=== PATIENT | female | born 1995 | race Caucasian/White ===

== ENCOUNTER 2019-05-12 20:39 | Emergency (ER) | payer BC ==
[~2019-05-12] VITALS: Ht 157.5 cm; Wt 115.7 kg
--- OUTSIDE RECORDS SUMMARY | ~2019-05-12 | XMS | Encounter Summary ---
Demographics + + + | Address | [address] | | | [place] [address] | + + + | Home Phone | | + + + | Preferred Language | Unknown | + + + | Marital Status | Single | + + + | Restorationist Affiliation | NRP | + + + | Race | White | + + + | Ethnic Group | Not or | + + + Author + + + | Author | [facility] | + + + | Organization | [facility] | + + + | Address | Unknown | + + + | Phone | Unavailable | + + + Support + + + + + | Name | Relationship | Address | Phone | + + + + + | Anderson Rose | ECON | [address] | | | [place] | | [place] [address] | | + + + + + | Gracie Turcios | ECON | [place] | | + + + + + Care Team Providers + +------+ + | Care Turn Sewer Name | Role | Phone | + +------+ + | Anisha Rivera | PCP | | + +------+ + Reason for Visit + + + | Reason | Comments | + + + | test | | + + + Encounter Details +--------+ + + + + | Date | Type | Department | Care Team | Description | +--------+ + + + + | 11/24/ | Telephone | [facility] [place] | Royal Lopez MD | test | | 2018 | | [facility] | [address] | | | | | [address] [place], [place] | | | | | [address] [place], [place] | [address] | | | | | [address] | [phone] | | | | | [phone] | | | +--------+ + + + + Social History + +-------+ +--------+------+ | Tobacco Use | Types | Packs/Day | Years | Date | | | | | Used | | + +-------+ +--------+------+ | Never Smoker | | | | | + +-------+ +--------+------+ + +---+---+---+ | Smokeless Tobacco: | | | | | Never Used | | | | + +---+---+---+ + + | Comments: Smoker at home. RS | + + + + +---------+ + | Alcohol Use | Drinks/Week | oz/Week | Comments | + + +---------+ + | No | 0 Standard drinks | 0.0 | | | | or equivalent | | | + + +---------+ + + + + | Sex Assigned at | Date Recorded | | | | + + + | Not on file | | + + + + + + + | Job Start Date | Occupation | Industry | + + + + | Not on file | Not on file | Not on file | + + + + + + + + | Travel History | Travel Start | Travel End | + + + + + + | No recent travel history available. | + + documented as of this encounter Plan of Treatment Not on filedocumented as of this encounter Results HCG BETA QUANT, PLASMA (11/24/2017 10:57 AM PDT) + + + + + + | Component | Value | Ref Range | Performed | Pathologist | | | | | At | Signature | + + + + + + | HCG BETA, | 10,316 (H) | <3 mIU/mL | [facility] | | | PLASMA | | | A MEDICAL | | | | | | CENTER | | + + + + + + + + | Specimen | + + | Blood - Blood | | (substance) | + + + + + | Narrative | Performed At | + + + | Quantitative HCG Reference Ranges Males and Non- | [facility] | | Females: 0.0-2.9 mIU/mL Females: Gestation Age HCG | [facility] | | Concentration (mIU/mL) 0.2-1 Weeks 5-50 1-2 | | | Weeks 50-500 2-3 Weeks 100-5,500 | | | 3-4 Weeks 500-10,000 4-5 Weeks | | | 1,000-50,000 5-6 Weeks 10,000-100,000 6-8 Weeks | | | 15,000-200,000 8-12 Weeks 10,000-100,000 The | | | use of this assay to monitor or to diagnose patients with cancer or | | | any condition unrelated to has not been cleared or approved | | | by the FDA or the missing persons investigator of the assay. | | + + + + + + + + | Performing | Address | City/State/Zipcode | Phone Number | | Organization | | | | + + + + + | [facility] | And | [place] [address] | [phone] | | [facility] | Streets | | | + + + + + documented in this encounter Visit Diagnoses + + | Diagnosis | + + | Unconfirmed - Primary examination or test, unconfirmed | + + documented in this encounter"
--- OUTSIDE RECORDS SUMMARY | ~2019-05-12 | XMS | Encounter Summary ---
Demographics + + + | Address | [address] | | | [place] [address] | + + + | Home Phone | | + + + | Preferred Language | Unknown | + + + | Marital Status | Single | + + + | Sikhism Affiliation | NRP | + + + | Race | White | + + + | Ethnic Group | Not or | + + + Author + + + | Author | [facility] | + + + | Organization | [facility] | + + + | Address | Unknown | + + + | Phone | Unavailable | + + + Support + + + + + | Name | Relationship | Address | Phone | + + + + + | Anderson Rose | ECON | [address] | | | [place] | | [place] [address] | | + + + + + | Gracie Turcios | ECON | [place] | | + + + + + Care Team Providers + +------+ + | Care Stone Layer Name | Role | Phone | + +------+ + | Anisha Rivera | PCP | | + +------+ + Reason for Visit +--------+ + | Reason | Comments | +--------+ + | Other | FMLA | +--------+ + Encounter Details +--------+ + + + + | Date | Type | Department | Care Team | Description | +--------+ + + + + | 07/13/ | Telephone | [facility] [place] | Natasha Jones, | Other ([facility]) | | 2019 | | [facility] [address] | MD [address] | | | | | [address] [place], [place] | | | | | [address] [place], [place] | [address] | | | | | [address] | [phone] | | | | | [phone] | | | +--------+ + + + [...] | | | + +---+---+---+ + + +---------+ + | Alcohol Use [...] Not on filedocumented as of this encounter Visit Diagnoses Not on filedocumented in this encounter"
--- OUTSIDE RECORDS SUMMARY | ~2019-05-12 | XMS | Encounter Summary ---
Demographics + + + | Address | [address] | | | [place] [address] | + + + | Home Phone | | + + + | Preferred Language | Unknown | + + + | Marital Status | Single | + + + | Jainism Affiliation | NRP | + + + | Race | White | + + + | Ethnic Group | Not or | + + + Author + + + | Author | [facility] | + + + | Organization | [facility] | + + + | Address | Unknown | + + + | Phone | Unavailable | + + + Support + + + + + | Name | Relationship | Address | Phone | + + + + + | Anderson Rose | ECON | [address] | | | [place] | | [place] [address] | | + + + + + | Gracie Turcios | ECON | [place] | | + + + + + Care Team Providers + +------+ + | Care Aging Room Operator Name | Role | Phone | + +------+ + | Anisha Rivera | PCP | | + +------+ + Encounter Details +--------+ + + + + | Date | Type | Department | Care Team | Description | +--------+ + + + + | 09/28/ | Orders Only | [place] | Natasha Jones, | History of | | 2018 | | [facility] [address] | MD [address] | gestational diabetes | | | | [address] [place], [place] | | | | | [address] [place], [place] | [address] | | | | | [address] | [phone] | | | | | [phone] | | | +--------+ + + + [...] Not on filedocumented as of this encounter Procedures + +--------+ + + + | Procedure Name | Priori | Date/Time | Associated Diagnosis | Comments | | | ty | | | | + +--------+ + + + | GLUCOSE, 2HR-75 | Routin | 09/28/2018 | History of | Results for this | | | e | 4:54 PM | gestational diabetes | procedure are in the | | | | PDT | | results section. | + +--------+ + + + | GLUCOSE, 2HR-75 | Routin | 09/28/2018 | History of | Results for this | | FASTING | e | 2:14 PM | gestational diabetes | procedure are in the | | | | PDT | | results section. | + +--------+ + + + | GLUCOSE TOLERANCE, 2 | Routin | 09/28/2018 | History of | Results for this | | HR | e | 2:14 PM | gestational diabetes | procedure are in the | | | | PDT | | results section. | + +--------+ + + + documented in this encounter Results GLUCOSE, 2HR-75 (09/28/2018 4:54 PM PDT) + +---------+ + + + | Component | Value | Ref Range | Performed | Pathologist | | | | | At | Signature | + +---------+ + + + | 2 HR GTT | 168 (H) | 70 - 140 mg/dL | [facility] | | | NON-GEST- 2 | | | A MEDICAL | | | HR GLU | | | CENTER | | + +---------+ + + + + + | Specimen | + + | Blood - Blood | | (substance) | + + + + + | Narrative | Performed At | + + + | The recommended OGTT is a 75 gm glucose load with a single 2-hour | [facility] | | post load glucose level. Fasting glucose levels between 110-126 | [facility] | | mg/dl and OGTT 2-hour results between 140-200 mg/dl define impaired | | | fasting glucose and impaired glucose tolerance. Reference: ADA | | | Recommendations 2001 | | + + + + + + + + | Performing | Address | City/State/Zipcode | Phone Number | | Organization | | | | + + + + + | [facility] | [address] | [place] [address] | [phone] | | MEDICAL CENTER | Streets | | | + + + + + GLUCOSE, 2HR-75 FASTING (09/28/2018 2:14 PM PDT) + +-------+ + + + | Component | Value | Ref Range | Performed | Pathologist | | | | | At | Signature | + +-------+ + + + | 2 HR GTT | 93 | 70 - 105 mg/dL | [facility] | | | NON-GEST- | | | A MEDICAL | | | FASTING | | | CENTER | | + +-------+ + + + + + | Specimen | + + | Blood - Blood | | (substance) | + + + + + + + | Performing | Address | City/State/Zipcode | Phone Number | | Organization | | | | + + + + + | [facility] | [address] | [place] [address] | [phone] | | MEDICAL [facility]ENTER | Streets | | | + + + + + documented in this encounter Visit Diagnoses + + | Diagnosis | + + | History of gestational diabetes Personal history of gestational diabetes | + + documented in this encounter"
--- OUTSIDE RECORDS SUMMARY | ~2019-05-12 | XMS | Encounter Summary ---
Demographics + + + | Address | [address] | | | [place] [address] | + + + | Home Phone | | + + + | Preferred Language | Unknown | + + + | Marital Status | Single | + + + | Mosque Affiliation | NRP | + + + | Race | White | + + + | Ethnic Group | Not or | + + + Author + + + | Author | [facility] | + + + | Organization | [facility] | + + + | Address | Unknown | + + + | Phone | Unavailable | + + + Support + + + + + | Name | Relationship | Address | Phone | + + + + + | Anderson Rose | ECON | [address] | | | [place] | | [place] [address] | | + + + + + | Gracie Turcios | ECON | [place] | | + + + + + Care Team Providers + +------+ + | Care Community Relations Specialist Name | Role | Phone | + +------+ + | Anisha Rivera | PCP | | + +------+ + Reason for Visit + + + | Reason | Comments | + + + | care | | + + + CC to [facility] (Routine) +--------+--------+ + + + + | Status | Reason | Specialty | Diagnoses / | Referred By | Referred To | | | | | Procedures | Contact | Contact | +--------+--------+ + + + + | Closed | | | Diagnoses | [place], | Pnc | | | | | Abnormal | [facility]julio cesar Loza, | Perinatology | | | | | | [facility] [address] | [address] | | | | | ultrasound | | [address] | | | | | Procedures | [address] | [address] | | | | | CONSULT TO | [place] | Physician's | | | | | PERINATOLOGY | [address] | [place] | | | | | [place] NEW | Phone: | [place], [place] | | | | | PATIENT | [phone] | [address] | | | | | L[place] | Fax: | Phone: | | | | | EST PATIENT | [phone] | [phone] | | | | | LEVEL V | | Fax: | | | | | | | [phone] | +--------+--------+ + + + + Encounter Details +--------+ + + + + | Date | Type | Department | Care Team | Description | +--------+ + + + + | 03/16/ | | Center | Zully Lira, | care | | 2018 | Initial | at [facility] [address] | MD [address] | | | | | [address] | [address] | | | | | Physician's Saji | [place], [place] | | | | | [place], [place] | [address] | | | | | [address] | [phone] | | | | | [phone] | | | +--------+ + + + [...] + + documented as of this encounter Last Filed Vital Signs + + + + + | Vital Sign | Reading | Time Taken | Comments | + + + + + | Blood Pressure | 118/67 | 03/16/2018 3:13 PM | | | | | PDT | | + + + + + | Pulse | 85 | 03/16/2018 3:13 PM | | | | | PDT | | + + + + + | Temperature | - | - | | + + + + + | Respiratory Rate | - | - | | + + + + + | Oxygen Saturation | 98% | 03/16/2018 3:13 PM | | | | | PDT | | + + + + + | Inhaled Oxygen | - | - | | | Concentration | | | | + + + + + | Weight | 115.1 kg (253 lb 12 | 03/16/2018 3:13 PM | | | | oz) | PDT | | + + + + + | Height | 157.5 cm (5' 2.01") | 03/16/2018 3:13 PM | | | | | PDT | | + + + + + | Body Mass Index | 46.4 | 03/16/2018 3:13 PM | | | | | PDT | | + + + + + documented in this encounter Progress Notes Zully Lira MD - 03/16/2018 3:00 PM PDTFormatting of this note might be different fr om the original. MFM CLINIC Consultation Visit DATE: 03/16/2018 REFERRING PROVIDER: Reynaldo AYALA PRIMARY OB PROVIDER: Reynaldo AYALA ID/CC: Ms. Elizabet Turcios is a 22 y.o. at 21w5d (ADELINE July 22, 2018 b y LMP) who presents for MFM consultation. She was referred for ultrasound with MFM consultation for possible small chin. On ultrasoun d today, the face/profile view appeared normal with no concerns for small chin. A velamentou s cord insertion was seen (with no concern for vasa previa). Here with her grandmother, Larissa, today. HPI: Elizabet reports that her has been fine, other than persistent morning sickn ess. She is taking Reglan which is managing her nausea well. She reports that she was diagnosed with gestational diabetes a few months ago. Not currentl y on medication. Checking CBGs at home and reports values within range. Having a boy. Good movement. No vaginal bleeding of LOF. No questions or concerns today. PAST MEDICAL HISTORY: Past Medical History: Diagnosis Date Chronic back pain Eczema As a child, bilateral UE Seasonal allergies PAST SURGICAL HISTORY: Past Surgical History Procedure Laterality Date Tympanostomy as young child GYNECOLOGICAL HISTORY: Last pap smear 01/07/2018 normal cytology OBSTETRICAL HISTORY: G1 - SAB 12/2015, no complications G2 - current FAMILY HISTORY: Family hx non-contributory MEDICATIONS: Current Outpatient Prescriptions on File Prior to Visit Medication Sig Dispense Refill albuterol 90 mcg/actuation inhalation HFA aerosol inhaler Inhale 1-2 puffs by mouth yuriy ry four hours as needed. 1 Inhaler 0 aspirin chewable 81 mg oral tablet,chewable Chew and swallow 1 tablet once daily. 30 ta blet 3 beclomethasone (QVAR) 40 mcg/actuation inhalation aerosol Inhale 2 puffs two times shar y. 1 Inhaler 0 Blood Sugar Diagnostic (BLOOD GLUCOSE TEST) strip Test four times daily. Fasting and 1 hour after breakfast, lunch, and dinner 100 each 2 Blood-Glucose Meter misc Test blood sugar four times daily. Fasting and one hour after breakfast, lunch and dinner 1 each 0 Lancets misc Test blood sugar four times daily. Fasting and one hour after breakfast, l unch and dinner 100 each 2 metoclopramide HCl (REGLAN) 10 mg oral tablet Take 1 tablet by mouth every six hours as needed for nausea/vomiting. 30 tablet 1 vits62/FA/om3/dha/epa ( GUMMY ORAL) Take by mouth. No current facility-administered medications on file prior to visit. Does not use QVAR inhaler. Not taking vitamin and needs a new prescription. SOCIAL HISTORY: She denies tobacco, alcohol, and drug use. Works at the [employer]. Lives with her boyfriend. Feels safe at work and at home. ALLERGIES: Allergies Allergen Reactions Peanut Anaphylaxis Avoids all nuts Penicillin Anaphylaxis and Hives All brothers have had this reaction to penicillin so patient does not take this medicatio n Lactose Stomach Upset REVIEW OF SYSTEMS: Negative except per HPI PHYSICAL EXAM: Vitals: BP 118/67 | Pulse 85 | Ht 1.575 m (5' 2.01") | Wt 115.1 kg (253 lb 12 oz) | SpO2 98 % | LMP 10/15/2017 | BMI 46.4 kg/(m^2) Urine: neg x 4 Gen: comfortable Psych: alert and oriented x 3; mood/affect appear appropriate Neuro: grossly normal Lungs: unlabored breathing Rest of the exam deferred due to consultative encounter IMAGING: OB Ultrasound today, March 16, 2018: Cephalic, FHR 147 bpm, JUANI normal. Anterior placenta without placenta previa. There is a velamentous cord insertion in the upp er right uterus > 5 cm from the placental edge. Normal profile and mandible noted on today's exam (by 2D and 3D evaluation). LABS: Completed 3hGTT [id number] ASSESSMENT AND PLAN: 22 yo with: Velamentous cord insertion Gestational diabetes Routine care - Patient not taking vitamin due to need for refill. Plans to get refill from rout ine OB. Velamentous cord insertion Discussed that velamentous cord insertion poses an increased risk of stunted growth a nd abnormal heart rate tracing. - Recommend growth ultrasounds q 4-6 weeks starting at 26-28 weeks (to be performed in the [facility]) - Recommend NST 1-2x/week starting at 32 weeks (to be performed in the [facility]) - Patient advised against laboring at home and to present to L&D soon after onset of labor Gestational diabetes Patient reports CBGs within range. Not on medication. - Gestational diabetes to be managed by routine OB in the [facility] No follow up necessary unless requested by routine OB. Start Time: 4:08 PM Exit Time: 4:20 PM I am Leola Goldsmith functioning as a scribe for MD Leola Sal PERINATOLOGY [address] [place] [address] I have reviewed, verified and edited the above scribed note of my visit with Elizabet Cheryl Turcios as recorded by Leola Goldsmith. The majority of time for this visit, greater than 50%, was spent in counseling regarding ve lamentous cord insertion and gestational diabetes affecting . The total physician dayanna carbone I spent in face to face discussion with Ms. Elizabet uTrcios was 12 minutes. Zully Guo MD, MSCE Clinical Trial Associate Department of Obstetrics and Gynecology Division of Maternal Medicine [facility] Display Progress Note in MyChart: Yes documented in this e ncounter Plan of Treatment Not on filedocumented as of this encounter Procedures + +--------+ + + + | Procedure Name | Priori | Date/Time | Associated Diagnosis | Comments | | | ty | | | | + +--------+ + + + | UA 4 DIP N/C, POC | Routin | 03/16/2018 | High-risk | Results for this | | | e | 3:09 PM | in second | procedure are in the | | | | PDT | trimester | results section. | + +--------+ + + + documented in this encounter Results UA 4 DIP N/C, POC (03/16/2018 3:09 PM PDT) + + + + + + | Component | Value | Ref Range | Performed | Pathologist | | | | | At | Signature | + + + + + + | APPEARANCE | Clear | | [facility] - | | | (UA DIP), | | | [facility] | | | POC | | | [place], POINT | | | | | | OF CARE | | | | | | TESTS | | + + + + + + | COLOR (UA | Yellow | | [facility] - | | | DIP), POC | | | [facility] | | | | | | [place], POINT | | | | | | OF CARE | | | | | | TESTS | | + + + + + + | GLUCOSE (UA | Negative | Negative - | [facility] - | | | DIP), POC | | Trace mg/dL | [facility] | | | | | | [place], POINT | | | | | | OF CARE | | | | | | TESTS | | + + + + + + | PROTEIN (UA | Negative | Neg - Trace | [facility] - | | | DIP), POC | | mg/dL | [facility] | | | | | | [place], POINT | | | | | | OF CARE | | | | | | TESTS | | + + + + + + | LEUKOCYTES | Negative | Negative | [facility] - | | | (UA DIP), | | | [facility] | | | POC | | | [place], POINT | | | | | | OF CARE | | | | | | TESTS | | + + + + + + | NITRITES | Negative | Negative | [facility] - | | | (UA DIP), | | | [facility] | | | POC | | | [place], POINT | | | | | | OF CARE | | | | | | TESTS | | + + + + + + + + | Specimen | + + | Urine - Urine | | (substance) | + + + + + + + | Performing | Address | City/State/Zipcode | Phone Number | | Organization | | | | + + + + + | [facility] | [address] | [place], [place] | | | [place] [facility] | [address] | [address] | | | TESTS | | | | + + + + + documented in this encounter Visit Diagnoses + + | Diagnosis | + + | Diet controlled gestational diabetes mellitus (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 trimester - Primary | + + | High-risk in second trimester | + + | Velamentous insertion of umbilical cord in third trimester Other umbilical cord | | complications during labor and delivery, unspecified as to episode of care | + + documented in this encounter
--- OUTSIDE RECORDS SUMMARY | ~2019-05-12 | XMS | Encounter Summary ---
Demographics + + + | Address | [address] | | | [place] [address] | + + + | Home Phone [...] Author + + + | Author | [facility] | + + + | Organization | [facility] | + + + | Address | Unknown | + + + | Phone | Unavailable | + + + Support + + + + + | Name | Relationship | Address | Phone | + + + + + | Anderson Rose | ECON | [address] | | | [place] | | [place] [address] | | + + + + + | Gracie Turcios | ECON | [place] | | + + + + + Care Team Providers + +------+ + | Care Railroad Car Cleaning Supervisor Name | Role | Phone | + +------+ + | Anisha Rivera | PCP | | + +------+ + Reason for Visit +---------+ + | Reason | Comments | +---------+ + | Blister | Hands | +---------+ + Encounter Details +--------+ + + + + | Date | Type | Department | Care Team | Description | +--------+ + + + + | 03/27/ | Telephone | [facility] | Anisha Rivera, | Blister (Hands) | | 2017 | | Medicine [address] | [facility] [address] | | | | | [address] [place], | [place], [place] | | | | | [place] [address] | [address] | | | | | [phone] | [phone] | | | | | | | | +--------+ + + + [...]
--- OUTSIDE RECORDS SUMMARY | ~2019-05-12 | XMS | Encounter Summary ---
Demographics + + + | Address | [address] | | | [place] [address] | + + + | Home Phone | | + + + | Preferred Language | Unknown | + + + | Marital Status | Single | + + + | Uatsdin Affiliation | NRP | + + + | Race | White | + + + | Ethnic Group | Not or | + + + Author + + + | Author | [facility] | + + + | Organization | [facility] | + + + | Address | Unknown | + + + | Phone | Unavailable | + + + Support + + + + + | Name | Relationship | Address | Phone | + + + + + | Anderson Rose | ECON | [address] | | | [place] | | [place] [address] | | + + + + + | Gracie Turcios | ECON | [place] | | + + + + + Care Team Providers + +------+ + | Care Stunner And Shackler Name | Role | Phone | + +------+ + | Anisha Rivera | PCP | | + +------+ + Reason for Visit + + + | Reason | Comments | + + + | | BS review | + + + Encounter Details +--------+ + + + + | Date | Type | Department | Care Team | Description | +--------+ + + + + | 04/30/ | | [facility] | Pentopoulos, | (BS | | 2018 | | [facility] [address] | MD Leonela [address] | review) | | | | [address] | | | | [address] [place], [place] | [place] | | | | | [address] | [address] | | | | | [phone] | [phone] | | | | | | | [...] + + + | Blood Pressure | 116/76 | 04/30/2018 7:40 AM | | | | | PST | | + + + + + | Pulse | - | - | | + + + + + | Temperature | - | - | | + + + + + | Respiratory Rate | - | - | | + + + + + | Oxygen Saturation | - | - | | + + + + + | Inhaled Oxygen | - | - | | | Concentration | | | | + + + + + | Weight | 117.5 kg (259 lb) | 04/30/2018 7:40 AM | | | | | PST | | + + + + + | Height | - | - | | + + + + + | Body Mass Index | 47.36 | 03/16/2018 3:13 PM | | | | | PDT | | + + + + + documented in this encounter Patient Instructions Patient Instructions Leonela Luke MD - 04/30/2018 7:45 AM PSTIt is important that you are testing your sugars 4 times a day so that we can properly manage your gestational d iabetes. You will want to test every morning when you wake up (fasting blood sugar) and one hour after each meal (postprandial). The goal for your fasting blood sugar is to be below 95 and the goal for postprandial values is less than 140. Please bring your meter with you to each appointment. Please schedule a follow-up OB visit in 2 weeks. This can be done at the same time as your ultrasound. Make certain you bring your meter. documented in this encounter Progress Notes Leonela Luke MD - 04/30/2018 7:45 AM PSTS: Elizabet is a at 28w1d who pr esents today for a routine OB visit and to review her sugars.. Today she has no complaints. She denies any contractions. She has good movement. O: General: NAD Abdomen: Soft, gravid. Psych: Appropriate mood and affect A: Elizabet is a at 28w1d who presents today for a routine OB visit. P: F/u in 2 weeks for a routine OB visit. Growth ultrasound in 2 weeks. Gestational diabetes -overall well controlled on 500 mg of metformin. Continue current dos e for now. Valorie naqvi MA - 04/30/2018 7:45 AM PSTTDAP today.Electronically signed by Valorie Berrios MA at 018 8:14 AM PSTdocumented in this encounter Plan of Treatment Not on filedocumented as of this encounter Visit Diagnoses + + | Diagnosis | + + | High-risk in second trimester - Primary | + + | Gestational diabetes mellitus (GDM) in second trimester controlled on oral | | hypoglycemic drug | + + documented in this encounter"
--- OUTSIDE RECORDS SUMMARY | ~2019-05-12 | XMS | Encounter Summary ---
Demographics + + + | Address | [address] | | | [place] [address] | + + + | Home Phone | | + + + | Preferred Language | Unknown | + + + | Marital Status | Single | + + + | Temple Affiliation | NRP | + + + | Race | White | + + + | Ethnic Group | Not or | + + + Author + + + | Author | [facility] | + + + | Organization | [facility] | + + + | Address | Unknown | + + + | Phone | Unavailable | + + + Support + + + + + | Name | Relationship | Address | Phone | + + + + + | Anderson Rose | ECON | [address] | | | [place] | | [place] [address] | | + + + + + | Gracie Turcios | ECON | [place] | | + + + + + Care Team Providers + +------+ + | Care Pre Fabricator Name | Role | Phone | + +------+ + | Anisha Rivera | PCP | | + +------+ + Reason for Visit + + + | Reason | Comments | + + + | | | + + + Encounter Details +--------+ + + + + | Date | Type | Department | Care Team | Description | +--------+ + + + + | 02/04/ | | [facility] | Kapil Rutherford, | | | 2018 | | [facility] [address] | CN[facility] [address] | | | | | [address] | [place] [address] | | | | | [address] [place], [place] | [place], [place] | | | | | [address] | [address] | | | | | [phone] | [phone] | | | | | | | [...] + + + | Blood Pressure | 110/70 | 02/04/2018 6:58 AM | | | | | PDT | [...] + + + + | Weight | 111 kg (244 lb 12.8 | 02/04/2018 6:58 AM | | | | oz) | PDT | | + + + + + | Height | - | - | | + + + + + | Body Mass Index | 44.76 | 01/05/2018 3:52 PM | | | | | PDT | | + + + + + documented in this encounter Patient Instructions Patient Instructions Mary Kruse MA - 02/04/2018 7:00 AM PDT Visit - Week 16 Congratulations, you are now in your second trimester. Usually this means you are feeling a little better. . . a little less fatigued and a little less nauseated. Please read chapter s 5 and 21 in your book. Genetic Screening and Ultrasound Some of you may have already completed some testing for genetic screening. Are yo u doing the Sequential Screening for genetic problems? If so, your second test should be do ne between 16 and 18 weeks gestation. Although, some women elect to skip this. Also, coming up is your mid- ultrasound. If you didn t schedule that at your vi sit today, call the clinic and get that done. We want to do this scan just AFTER the mid-po int of .just after 20 weeks. Doing this scan after 20 weeks means your baby is big enough for us to see more of the baby s anatomy. Although ultrasound cannot see ev erything and thus cannot picker and sorter load and unload all problems, it can provide us with reasonable assurance t hat your baby is growing normally. What is a ultrasound? ultrasound is a test that lets your doctor see an image of your baby. Your doctor golden rns information about your baby from this picture. You may find out, for example, if you are having a boy or a girl. But the main reason you have this test is to get information about your baby's health. (You may hear your baby called a fetus. This is a common medical term for a baby that's blaze wing in the mother's uterus.) What kind of information can you learn from this test? The findings of an ultrasound fall into two categories, normal and abnormal. Normal The fetus is the right size for its age. The placenta is the expected size and does not cover the cervix. There is enough amniotic fluid in the uterus. No defects can be seen. Abnormal The fetus is small or large for its age. The placenta covers the cervix. There is too much or too little amniotic fluid in the uterus. The fetus may have a defect. What does an abnormal result mean? Abnormal seems to imply that something is wrong with your baby. But what it means is that t he test has shown something the doctor wants to take a closer look at. And that's what happens next. Your doctor will talk to you about what further test or tests you may need. What are some possible results? Some of the things your doctor may see on an abnormal ultrasound include: Echogenic bowel. The bowel looks very bright on the screen. This could mean there is blo od in the bowel. Or it could mean that something is blocking the small bowel. Increased nuchal translucency. The ultrasound measures the thickness at the back of the baby's neck. An increase in thickness is sometimes an early sign of Down syndrome. Increased or decreased amniotic fluid. The doctor will look for a reason for the level o f amniotic fluid and will watch the closely as it progresses. Large ventricles. Ventricles in the brain look larger than they should. Your doctor may take a closer look at the brain. Renal pyelectasis/hydronephrosis. The ultrasound measures an area of the baby's renal pe lvis. If the area is larger than expected, there is a chance of urinary tract or kidney prob lems. Short long bones. The ultrasound measures certain arm and leg bones. A long bone (humeru s or femur) that is shorter than average could be a sign of Down syndrome. What do you do now? Take a deep breath, and let it out. Keep in mind that an abnormal finding on an ultrasound, after it's coupled with more information, may: director of outside sales to be nothing. director of outside sales to be something mild that won't affect the baby. director of outside sales to be something more serious. But if this happens, early diagnosis helps you an d your doctor plan treatment options sooner rather than later. Nutrition Today s Nutritional Pascale is this: Eat enough; but don t over-eat. Are you really eat ing for TWO? Well, yes and no. But one of you is pretty small. Early in , no inc rease in calories is really needed. In the last months of , a woman only needs an additional 300 calories (that s about 2 glasses of milk OR three slices of bread). Howev er, a focus just on calories misses a major point about nutrition ..(unless you re getti ng too many - which can lead to excess weight gain for both you and your baby). Think qual ity, not quantity. Certainly, if you think you re not getting enough calories, call us. Last visit s Nutritional Pascale was this: Keep it simple, eat the equivalent of three heal thy meals and three healthy snacks. What is healthy? Generally, healthy is more easily fou nd on the margins of the supermarket, not in the rows. Healthy is the produce department, d airy cases, and meat department. Healthy is fresh fruits, fresh vegetables, whole grains, u nsweetened dairy products, cheeses, eggs, meats and fish. Think twice if food comes in a brittaney x or package, especially if the food was processed or changed in some way (like turning corn into oil-fried corn chips). Read the ingredients did they add fat, sugar, or salt? H ealthy is also whole that means brown rice instead of white rice; whole grain breads an d cereals instead of white bread. How much weight should I gain? This is one of the toughest questions we address andreina ng . The common advice to gain 25-35 pounds is at most a broad guideline. E ach woman is special and unique, and many women gain more or less than this and have healthy pregnancies and babies. The more difficult answer is that weight gain is less important th an the quality of your nutrition. But it is likely that you will gain weight. So, using we ight gain as a guide in must take into account some individual variation. We use the Body Mass Index (BMI), a calculation based on your height and weight, to begin this conv ersation. Last 1 Encounter BMI Readings: Date BMI 02/04/2018 44.76 kg/m2 BMI Recommended Weight Gain (lbs) <18.5 28-40 18-24.9 25-35 25-29.9 15-25 30-34.9 11-20 >35 0-9 Where does the weight go? Baby 8 lbs Placenta 2-3 lbs Amniotic Fluid 2-3 lbs Breast Tissue 2-3 lbs Blood Supply 4 lbs Fat stores for delivery & breast feeding 5-9 lbs Uterus increase 2-5 lbs TOTAL 25-35 lbs Again ..keep it simple ..the equivalent of three, healthy meals and three healthy snack s. Fresh, whole foods. Fruits and vegetables. 71g of a high-quality protein every day (eg gs, dairy, meats, fish, chicken, beans/grains). and stay away from empty calories . What are empty calories ? .foods, th at is, junk foods, that provide calories but no other nutrition. The classic examples are c hips, sodas, cakes, cookies, ice cream. With that said, variety is the spice of life, and a good diet can include the occasional treat. Another important nutrient (although it s really not a nutrient, per se) is fiber. Gener ally speaking, most of us don t get enough of it. Fiber is the fibrous part of fruits and vegetables that human beings cannot digest. So, why would we need a food component that we don t digest? ? Fiber helps rid our bodies of the toxins and waste-products produced in the liver. ? Fiber is the bulk of our poop ? Fiber helps rid our bodies of high levels of cholesterol ? Fiber helps us moderate our blood sugars ? Fiber helps nourish the good bacteria that live in our gut Most modern diets do not provide our bodies with enough fiber. In fact, the modern grocery store can actually sabotage our efforts to eat a healthy diet. As consumers we are pushed toward too much fat, too much sugar, too much salt, too much processed food, and not nearly enough fiber. Thus, the modern diet sets us up for weight gain, diabetes, high blood pressu re, and .constipation. Human beings are omnivores ..we can eat a little of everyt maryellen. Our primitive ancestors ate a diet that included large amounts of fiber. Meats, dair y products, eggs, and fish were luxurious, infrequent additions to what was probably a diet of mostly plants (fruits and vegetables) and thus, a lot more fiber. For some women, compounds the potential for constipation. The muscles in the wal ls of the intestines (which move food along the digestive tract) relax during - slo wing down the movement of food through the body. As the passage of food slows down , the last few feet of bowel (the colon) have more time to pull water out of the fiber that makes it that far and instead of soft poop, the stool becomes hard. If there s not m ore fiber coming down the pike, the hard stool sits in the colon and gets harder and you ve got a problem. Here are suggestions for avoiding constipation: ? Get plenty of fiber ? Drink plenty of water (avoid a lot of fluids that are sweet) ? Get plenty of exercise Unfortunately, all intestines are not created equal. Some women s digestive systems are just slower than others. can compound problems with constipation. If you are one of those women, talk to us. We have more tricks in the bag for dealing with constipation, including: ? Prunes. All that you ve heard is true. Start with prunes. ? Bulk additives, like psyllium, a grain product that holds water ? Senna, a grain product that also helps stimulate the gut (a laxative) ? Docusate, a medicine that helps the stool retain moisture Numerous other laxative products (talk to us before you try any laxative products). Exercise Did we mention exercise? It s something we all need to do ..every day ..even pregnan t women. About 30 minutes of moderate exertion most days of the week. That could be a bris k walk, a workout program designed for women, or the moderate exercise that you v e always done. does change your body in some ways that may impact your exercise regimen: ? Sometimes, if you overdo it, you ll be more fatigued and recover more slowly ? The cartilage and ligaments that pad and hold your joints together soften during pregnanc y. Thus, you might be more susceptible to injury if you start an unfamiliar activity or pus h your body too hard ? Dehydration can make the uterus contract ..so, keep drinking those fluids during exerci se. Weeks 14 to 18 of Your : Care Instructions Your Care Instructions During this time, you may start to "show," so that you look to people around you. You may also notice some changes in your skin, such as itchy spots on your palms or acne on your face. Your baby is now able to pass urine, and your baby's first stool (meconium) is starting to collect in his or her intestines. Hair is also beginning to grow on your baby's head. At your next visit, between weeks 18 and 20, your doctor may do an ultrasound test. The janny t allows your doctor to check for certain problems. Your doctor can also tell the sex of you r baby. This is a good time to think about whether you want to know whether your baby is a b oy or a girl. Talk to your doctor about getting a flu shot to help keep you healthy during your . As your moves along, it is common to worry or feel anxious. Your body is changing a lot. And you are thinking about giving , the health of your baby, and becoming a par ent. You can learn to cope with any anxiety and stress you feel. Follow-up care is a emerson part of your treatment and safety. Be sure to make and go to all ap pointments, and call your doctor if you are having problems. It's also a good idea to know y our test results and keep a list of the medicines you take. How can you care for yourself at home? Reduce stress Ask for help with cooking and housekeeping. Figure out who or what causes your stress. Avoid these people or situations as much a s possible. Relax every day. Taking 10- to 15-minute breaks can make a big difference. Take a wal k, listen to music, or take a warm bath. Learn relaxation techniques at or yoga class. Or buy a relaxation tape. List your fears about having a baby and becoming a parent. Share the list with nestor pedraza you trust. Decide which worries are really small, and try to let them go. Exercise If you did not exercise much before , start slowly. Walking is best. Pace yo urself, and do a little more every day. Brisk walking, easy jogging, low-impact aerobics, water aerobics, and yoga are good c hoices. Some sports, such as scuba diving, horseback riding, downhill skiing, gymnastics, an d water skiing, are not a good idea. Try to do at least 2 hours a week of moderate exercise, such as a fast walk. One wa y to do this is to be active 30 minutes a day, at least 5 days a week. It's fine to be activ e in blocks of 10 minutes or more throughout your day and week. Wear loose clothing. And wear shoes and a bra that provide good support. Warm up and cool down to start and finish your exercise. If you want to use weights, be sure to use light weights. They reduce stress on your joints. Stay at the best weight for you Experts recommend that you gain about 1 pound a month during the first 3 months of yo ur . Experts recommend that you gain about 1 pound a week during your last 6 months of pre gnancy, for a total weight gain of 25 to 35 pounds. If you are underweight, you will need to gain more weight (about 28 to 40 pounds). If you are overweight, you may not need to gain as much weight (about 15 to 25 pounds ). If you are gaining weight too fast, use common sense. Exercise every day, and limit s weets, fast foods, and fats. Choose lean meats, fruits, and vegetables. If you are having twins or more, your doctor may refer you to a dietitian. Where can you learn more? To learn more about "Weeks 14 to 18 of Your : Care Instructions", log into your My Chart account at [email or web address]. You can enter I453 in the "Health Library" [place] box. Not on MyChart? Review the MyChart section of your After Visit Summary for directions on [facility] to sign up. Current as of: May 06, 2017 Content Version: 11.7 0558-4554 testhub. Care instructions adapted under license by [facility] [place]. If you have questions about a medical condition or this instr uction, always ask your healthcare professional. [employer]hub disclaims any frederic anty or liability for your use of this information. documented in this encounter Progress Notes Kapil Rutherford CNM - 02/04/2018 7:00 AM PDTS: @ 16 weeks who presents for routine ob visit. She was diagnosed with GDM at 13 weeks. She has attended diabetes education. She states she didn't bring her meter because she hasn't testing for over 1.5 weeks. She states she just got out of the habit of it. Blood sugars at RN visit and punch molder were in good ran ge. She states she has gone from eating fast food every other meal to eating much more healt hy. She states she plans to restart testing today. She asks for a work letter to limit her work days. She is working at least 6 days per week. 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 She does plan to complete 2nd SS. O: See flow sheet Abd: gravid, soft, not tender A/P GDM: Reviewed importance of blood sugar testing, following healthy diet and exercise in ord er to provide healthiest environment for baby. Reviewed risks associated with uncontrolled d iabetes to include demise. Asked that she resume QID testing. Will plan her to meet wi th RN in 1-2 weeks to review sugars and then again in 3-4 wks at [facility]. Work: Letter written to decrease hours to 40 per week F/U in 3-4 weeks for anatomy scan and ROB Mary Tenorio MA - 02/04/2018 7:00 AM PDTPt has no questions or concerns. Brennan Larkin MA - 02/04/2018 7:00 AM PDT2nd genetic form given. documented in this encounter Plan of Treatment Not on filedocumented as of this encounter Visit Diagnoses + + | Diagnosis | + + | High-risk in second trimester - Primary | + + | Diet controlled gestational diabetes mellitus (GDM) in second trimester | + + documented in this encounter
--- OUTSIDE RECORDS SUMMARY | ~2019-05-12 | XMS | Encounter Summary ---
Demographics + + + | Address | [address] | | | [place] [address] | + + + | Home Phone | | + + + | Preferred Language | Unknown | + + + | Marital Status | Single | + + + | Amish Affiliation | NRP | + + + | Race | White | + + + | Ethnic Group | Not or | + + + Author + + + | Author | [facility] | + + + | Organization | [facility] | + + + | Address | Unknown | + + + | Phone | Unavailable | + + + Support + + + + + | Name | Relationship | Address | Phone | + + + + + | Anderson Rose | ECON | [address] | | | [place] | | [place] [address] | | + + + + + | Gracie Turcios | ECON | [place] | | + + + + + Care Team Providers + +------+ + | Care Oil Truck Driver Name | Role | Phone | + [...] | +--------+ + + + + | 07/02/ | | [facility] | Royal Lopez MD | | | 2019 | | [facility] [address] | [address] [place] | | | | | [address] [place], [place] | | | | | [address] [place], [place] | [address] | | | | | [address] | [phone] | | | | | [phone] | | | +--------+ + + + [...] + + documented as of this encounter Progress Notes Royal Lopez MD - 07/02/2018 11:45 AM PSTS: Patient was seen during NST today. Growth u ltrasound scheduled for today. Patient is feeling well. She reports increasing pain of contractions that are occurring ev belia 10 minutes or so. She rates them 7/10. She reports that none of them take her breath a way or limits her activities. She denies any leaking, bleeding. Patient wonders about induction scheduling as induction has been recommended at 39 weeks. O: See flow sheet Blood sugars reviewed, only 1 elevated blood sugar. NST reactive A/P: Elizabet Turcios is a 23 y.o. female at 37w1d with complica danyel by gestational diabetes on insulin, obesity, and Rh-negative - GDM: Continue current doses of NPH /12 - Induction recommended at 39 weeks, discussed plan for cervical exam next week and plannin g of induction on either 07/15 (evening) or 07/16. Discussed expectations with induction incl uding misoprostol, Pitocin, and time of induction for 1st labor. - growth ultrasound scheduled for today was normal. documented in this encounter Plan of Treatment Not on filedocumented as of this encounter Visit Diagnoses + + | Diagnosis | + + | High-risk in third trimester - Primary | + + documented in this encounter"
--- OUTSIDE RECORDS SUMMARY | ~2019-05-12 | XMS | Encounter Summary ---
Demographics + + + | Address | [address] | | | [place] [address] | + + + | Home Phone | | + + + | Preferred Language | Unknown | + + + | Marital Status | Single | + + + | Alevism Affiliation | NRP | + + + | Race | White | + + + | Ethnic Group | Not or | + + + Author + + + | Author | [facility] | + + + | Organization | [facility] | + + + | Address | Unknown | + + + | Phone | Unavailable | + + + Support + + + + + | Name | Relationship | Address | Phone | + + + + + | Anderson Rose | ECON | [address] | | | [place] | | [place] [address] | | + + + + + | Gracie Turcios | ECON | [place] | | + + + + + Care Team Providers + +------+ + | Care Unit Control Worker Name | Role | Phone | + +------+ + | Anisha Rivera | PCP | | + +------+ + Reason for Visit + + + | Reason | Comments | + + + | monitoring | | + + + Encounter Details +--------+ + + + + | Date | Type | Department | Care Team | Description | +--------+ + + + + | 06/01/ | | [facility] | | monitoring | | 2018 | | [facility] [address] | | | | | | [address] [facility] | | | | | | [address] [place], [place] | | | | | | [address] | | | | | | [phone] | | | +--------+ + + + [...] + + + | Blood Pressure | 101/69 | 06/01/2018 9:16 AM | | | | | PST [...] + + + + | Weight | 119.7 kg (264 lb) | 06/01/2018 9:16 AM | | | | | PST | | + + + + + | Height | - | - | | + + + + + | Body Mass Index | 48.27 | 03/16/2018 3:13 PM | | | | | PDT | | + + + + + documented in this encounter Progress Notes Jordan Gonsalves RN - 06/01/2018 8:00 AM PSTNST: 23 y.o. at 32w5d weeks gesta tion. Indications for monitoring: GDM starting insulin, BMI 44 FHT: Baseline FHR 140, moderate variability, 15 x 15 accelerations, and no decelerations. TOCO: One contraction noted in 25 minutes, reported as noticeable but not painful by krista gray Strip reviewed by Wellington Jones MD. Next appointment 06/03 for JUAIN, 06/04 for NST. Glucose results reviewed by Dr. Jones. Pharmacy did not have pt insulin until this afternoo n. She declined returning with her supplies for insulin teaching. Showed pt sample pen and w ent over handouts. Pt to call if she has any questions or needs assistance. Pt states unders tanding. documented in this encounter Plan of Treatment Not on filedocumented as of this encounter Procedures + +--------+ + + + | Procedure Name | Priori | Date/Time | Associated Diagnosis | Comments | | | ty | | | | + +--------+ + + + | NST | Routin | 06/01/2018 | Gestational | Results for this | | | e | | diabetes mellitus | procedure are in the | | | | | (GDM) in second | results section. | | | | | trimester controlled | | | | | | on oral | | | | | | hypoglycemic drug | | | | | | High-risk | | | | | | in third trimester | | + +--------+ + + + documented in this encounter Results NST (06/01/2018) + + + + + + | Component | Value | Ref Range | Performed | Pathologist | | | | | At | Signature | + + + + + + | PHYSICIAN | REACTIVE | | | | | INTERP NST | | | | | + + + + + + documented in this encounter Visit Diagnoses + + | Diagnosis | + + | Gestational diabetes mellitus (GDM) in second trimester controlled on oral | | hypoglycemic drug | + + | High-risk in third trimester | + + documented in this encounter"
--- OUTSIDE RECORDS SUMMARY | ~2019-05-12 | XMS | Encounter Summary ---
Demographics + + + | Address | [address] | | | [place] [address] | + + + | Home Phone | | + + + | Preferred Language | Unknown | + + + | Marital Status | Single | + + + | Denominational Affiliation | NRP | + + + | Race | White | + + + | Ethnic Group | Not or | + + + Author + + + | Author | [facility] | + + + | Organization | [facility] | + + + | Address | Unknown | + + + | Phone | Unavailable | + + + Support + + + + + | Name | Relationship | Address | Phone | + + + + + | Anderson Rose | ECON | [address] | | | [place] | | [place] [address] | | + + + + + | Gracie Turcios | ECON | [place] | | + + + + + Care Team Providers + +------+ + | Care Community Program Assistant Name | Role | Phone | + [...] | +--------+ + + + + | 06/18/ | Hospital | M[facility] Services | Kapil Rutherford, | | | 2019 | Encounter | at [facility] | [facility] [address] | | | | | [address] | [address] | | | | | [place], [place] | [place], [place] | | | | | [address] | [address] | | | | | [phone] | [phone] | | | | | | | | | | | | Natasha Jones MD | | | | | | [address], | | | | | | [address] [place], [place] | | | | | | [address] | | | | | | [phone] | | | | | | | [...] + + + | Blood Pressure | 138/85 | 06/18/2018 4:21 PM | | | | | PST | | + + + + + | Pulse | 105 | 06/18/2018 4:15 PM | | | | | PST | | + + + + + | Temperature | 36.4 C (97.5 F) | 06/18/2018 4:15 PM | | | | | PST | | + + + + + | Respiratory Rate | 18 | 06/18/2018 4:15 PM | | | | | PST | | + + + + + | Oxygen Saturation | 97% | 06/18/2018 4:15 PM | | | | | PST | | + + + + + | Inhaled Oxygen | - | - | | | Concentration | | | | + + + + + | Weight | - | - | | + + + + + | Height | - | - | | + + + + + | Body Mass Index | - | - | | + + + + + documented in this encounter Discharge Instructions Instructions Alisia Armstrong RN - 06/18/2018Return to First Impressions or call your O B provider: If your bag of water breaks -- this may feel like a gush of fluid or intermittent or contin uous leaking from the vagina. For any vaginal bleeding - a small amount of bloody mucous-like show is normal in early lab or or after an exam. When contractions are regular, uncomfortable and 5 minutes or less apart for approximately one hour. Notify your OB provider of Decreased movement of your baby. You should feel about 10 movements in a 10 hour period. Persistent headache Blurred or spotted vision, double vision or problem focusing. Sudden increase in weight or swelling of hands and face. Elevated temperature above 100.5 degrees F, oral temperature. AttachmentsThe following attachments cannot be sent through Care Everywhere.Preeclampsia (E eligio)documented in this encounter Progress Notes Natasha Jones MD - 06/18/2018 5:00 PM PSTNST Interpretation: ID: Elizabet Turcios is a 23 y/o who presents for scheduled NST for A2GDM, obesity, velamentous cord insertion and diabetes. O: BP 138/85 | Pulse 105 | Temp (Src) 36.4 C (97.5 F) (Oral) | RR 18 | SpO2 97% | LMP 05/0 07/2017 NST - BL 125, moderate variability, +accels, no decels [place] - acontractile Impression: Reactive NST BP slightly higher than baseline, though still within normal range. Patient w/ no si/sx of preeclampsia. Patient scheduled for NST on Thursday 06/22. Preeclampsia precautions reviewed. Natasha Jones MD documented in this en counter Plan of Treatment Not on filedocumented as of this encounter Visit Diagnoses Not on filedocumented in this encounter"
--- OUTSIDE RECORDS SUMMARY | ~2019-05-12 | XMS | Encounter Summary ---
Demographics + + + | Address | [address] | | | [place] [address] | + + + | Home Phone | | + + + | Preferred Language | Unknown | + + + | Marital Status | Single | + + + | Moravian Affiliation | NRP | + + + [...] | | [place] | | [place] [address] | | + + + + + | Gracie Turcios | ECON | [place] | | + + + + + Care Team Providers + +------+ + | Care Qa Automation Architect Name | Role | Phone | + +------+ + | Anisha Rivera | PCP | | + +------+ + Reason for Visit + + + | Reason | Comments | + + + | | | + + + | monitoring | | + + + Encounter Details +--------+ + + + + | Date | Type | Department | Care Team | Description | +--------+ + + + + | 06/11/ | | [facility] | Natasha Jones, | ; | | 2018 | | [facility] [address], | monitoring | | | [address] [place], [place] | | | | | [address] [place], [place] | [address] | | | | | [address] | [phone] | | | | | [phone] | | | +--------+ + + + [...] + + + | Blood Pressure | 104/70 | 06/11/2018 3:12 PM | | | | | PST [...] + + + + | Weight | 120.8 kg (266 lb 6.4 | 06/11/2018 3:12 PM | | | | oz) | PST | | + + + + + | Height | - | - | | + + + + + | Body Mass Index | 48.71 | 03/16/2018 3:13 PM | | | | | PDT | | + + + + + documented in this encounter Patient Instructions Patient Instructions Dolly Lacy MA - 06/11/2018 3:15 PM PSTPrenatal Visit - Week 34 Please read chapter 18 in your book. Group B Strep (GBS) At your next visit we will be obtaining a culture for Group B Strep (GBS). Group B strepto coccus is a bacteria. About 30% of women carry GBS in the vagina and/or rectum. For most a dults and children GBS is not a harmful bacteria. However, if it gets into the blood of a n ewborn it can cause serious illness. We will use two small Qtips to collect a sample from your vagina and rectum. The culture p david takes just a few seconds and should not be uncomfortable. If the culture is positive for GBS we will want to give you antibiotics when you re in la bor to prevent your baby from infection. If you are allergic to Penicillin, let your doctor or housekeeper supervisor know. Did you get your Tdap shot? Here s another reminder about the Tdap vaccine. We want the people who will be around yo ur baby to be immunized against diphtheria and pertussis. Remind those people to get their Tdap shot! And while you re at it .if it s Flu Season, have everyone get a flu shot. Family Medical Leave Act (FMLA) / Disability Most employers are required to allow a 12 week leave for caring for a new baby without risk of losing your job or health insurance. This is commonly unpaid unless you have saved up v acation and sick time. Your company can require you to have been working there for 12 month s before you are eligible. Some folks also have short-term disability plans that can help pr ovide a partial income for part of their leave. Both of these plans require paperwork with a part for you to complete and a part for us to complete. Make sure you get these forms to us soon so there is enough time for our staff to complete your paperwork and get it turned it. We ask you to allow a 2 week turn-around violet e to get this done. Weeks 34 to 36 of Your : Care Instructions Your Care Instructions By now, your baby and your belly have grown quite large. It is almost time to give . A full-term can deliver between 37 and 42 weeks. Your baby's lungs are almost ready to breathe air. The bones in your baby's head are now firm enough to protect it, but soft e nough to move down through the canal. You may feel excited, happy, anxious, or scared. You may wonder how you will know if you ar e in labor or what to expect during labor. Try to be flexible in your expectations of the rt. Because each is different, there is no way to know exactly what childbirth will b e like for you. This care sheet will help you know what to expect and how to prepare. This m ay make your childbirth easier. If you haven't already had the Tdap shot during this , talk to your doctor about g etting it. It will help protect your against pertussis infection. In the 36th week, most women have a test for group B streptococcus (GBS). GBS is a common b acteria that can live in the vagina and rectum. It can make your baby sick after . If y ou test positive, you will get antibiotics during labor. The medicine will keep your baby fr om getting the bacteria. Follow-up care is a emerson part of your treatment and safety. Be sure to make and go to all ap pointments, and call your doctor if you are having problems. It's also a good idea to know y our test results and keep a list of the medicines you take. How can you care for yourself at home? Learn about pain relief choices Pain is different for every woman. Talk with your doctor about your feelings about pain. You can choose from several types of pain relief. These include medicine or breathing te chniques, as well as comfort measures. You can use more than one option. If you choose to have pain medicine during labor, talk to your doctor about your options . Some medicines lower anxiety and help with some of the pain. Others make your lower body n umb so that you won't feel pain. Be sure to tell your doctor about your pain medicine choice before you start labor or ve ry early in your labor. You may be able to change your mind as labor progresses. Rarely, a woman is put to sleep by medicine given through a mask or an IV. Labor and delivery The first stage of labor has three parts: early, active, and transition. Most women have early labor at home. You can stay busy or rest, eat light snacks, drink clear fluids, and start counting contractions. When talking during a contraction gets hard, you may be moving to active labor. During a ctive labor, you should head for the hospital if you are not there already. You are in active labor when contractions come every 3 to 4 minutes and last about 60 se conds. Your cervix is opening more rapidly. If your water breaks, contractions will come faster and stronger. During transition, your cervix is stretching, and contractions are coming more rapidly. You may want to push, but your cervix might not be ready. Your doctor will tell you when to push. The second stage starts when your cervix is completely opened and you are ready to push. Contractions are very strong to push the baby down the canal. You will feel the urge to push. You may feel like you need to have a bowel movement. You may be coached to push with contractions. These contractions will be very strong, bu t you will not have them as often. You can get a little rest between contractions. You may be emotional and irritable. You may not be aware of what is going on around you. One last push, and your baby is born. The third stage is when a few more contractions push out the placenta. This may take 30 minutes or less. The fourth stage is the welcome recovery. You may feel overwhelmed with emotions and exh austed but alert. This is a good time to start . Where can you learn more? To learn more about "Weeks 34 to 36 of Your : Care Instructions", log into your My Chart account at [email or web address]. You can enter B912 in the "Health Library" [facility] box. Not on [employer]? Review the MyChart section of your After Visit Summary for directions on [place] [facility] to sign up. Current as of: February 18, 2018 Content Version: 11.9 1132-2860 [employer]. Care instructions adapted under license by [facility] [employer]. If you have questions about a medical condition or this instr uction, always ask your healthcare professional. [employer] disclaims any frederic anty or liability for your use of this information. documented in this encounter Progress Notes Natasha Jones MD - 06/11/2018 3:15 PM PSTReturn OB Visit S: Patient reports feeling overall fine. States occ BH contractions. Denies any vaginal b leeding or LOF. Reports she has not received rhogam and wonders if she should. Increased N PH to 12 units QPM on 06/08, her first fasting CBG after the change was 124, though she stat es she at a lot of carbs for a snack the night before. She usually eats crackers as a snack before bed. She notes some elevated post-prandial CBGs in 140-150s. These are after eating "a lot of carbs". O: VS: BP 104/70 | Wt 120.8 kg (266 lb 6.4 oz) | LMP 10/15/2017 | BMI 48.71 kg/(m^2) Gen: Well-appearing, in no distress Abd: soft, NT, gravid Ext: No LE edema or calf tenderness US: Growth 75%, JUANI 25.9 A/P: 23 y.o. at 34w1d here for visit. c/b insulin-controlled GDM , obesity, velamentous cord insertion, polyhydramnios, Rh neg. - PNC: INCOMPLETE- patient has NOT had Rhogam, CBC, antibody screen in 3rd trimester. Atte mpted to draw these in clinic today but were unsuccessful. Patient did not have time to go t o lab and return this afternoon so she will come in first thing tomorrow morning after her s hift at work to have labs and then come to [facility] for Rhogam injection. - A2GDM: recently increased NPH to 12 units at bedtime. 3 fastings since show 2/3 elevated (85, 124, 95). Some postprandials are mildly elevated, though patient notes high carb intak e with these. Recommend continuing current insulin dose and following up CBGs next week Fri day. Will adjust insulin as needed. Discussed possible need to start AM insulin as well, bu t encouraged dietary changes which would likely make that necessary. Patient to continue tw ice weekly NST, weekly JUANI and growth US in 3 weeks. Discussed IOL by 39 weeks or sooner if diabetes uncontrolled or other indication for earlier induction would arise. - Polyhydramnios: JUANI mildly elevated today, repeat weekly - Velamentous cord insertion: discussed implications of this in detail today. Discussed pos sible increased risk of intolerance of labor and need for . Continue monitor ing as above. - Discussed control, patient leaning toward depo. Sent in Rx for breast pump today a s well. Also gave information for birthing classes by patient request. Discussed can fred talavera RN visit if she is unable to find affordable or convenient option for birthing classes. - RTC in 1 week for JUANI, CBG review with RN Natasha Jones MD Jaz Rainey RN - 06/11/2018 3:15 PM PSTNST: 23 y.o. at 34w1d weeks gestation. Indications f or monitoring: GDM on insulin, BMI, Velamentous cord insertion, polyhydramnios FHT: Baseline FHR 145, moderate variability, 15 x 15 accelerations, and no decelerations. TOCO: Four contractions noted in 27 minutes, rated at 0/10 on pain scale by patient - repo rts they feel like tightness of her upper abdomen, denies pain or cramping. Strip reviewed by Dr. Jones. Next appointment 06/12/18 at 7:45 am for injection. Pt given information about childbirth classes for [facility] and phone number for [place] educ ator/coordinator. Requested she notify staff if dates/times are not going to work, she can be scheduled for nurse visit and OB department tour or prolonged provider visit if indicated . She is in agreement with plan. Dolly Clayton M A - 06/11/2018 3:15 PM PSTFeeling contractions once in a while but feels like they are brax ton hick Dolly Lacy MA documented in this enco unter Plan of Treatment Not on filedocumented as of this encounter Procedures + +--------+ + + + | Procedure Name | Priori | Date/Time | Associated Diagnosis | Comments | | | ty | | | | + +--------+ + + + | NST | Routin | 06/11/2018 | Gestational | Results for this | [...] + documented in this encounter Results NST (06/11/2018) + + + + + + | Component | Value | Ref Range | Performed | Pathologist | | | | | At | Signature | + + + + + + | PHYSICIAN | Reactive | | | | | INTERP NST | | | | | + + + + + + documented in this encounter Visit Diagnoses + + | Diagnosis | + + | Supervision of high risk in third trimester - Primary Unspecified high-risk | | | + + | Gestational diabetes mellitus (GDM) in second trimester controlled on oral | | hypoglycemic drug | + + | High-risk in third trimester | + + | Insulin controlled gestational diabetes mellitus (GDM) in second trimester | + + | Velamentous insertion of umbilical cord in third trimester Other umbilical cord | | complications during labor and delivery, unspecified as to episode of care | + + documented in this encounter
--- OUTSIDE RECORDS SUMMARY | ~2019-05-12 | XMS | Encounter Summary ---
Demographics + + + | Address | [address] | | | [place] [address] | + + + | Home Phone | | + + + | Preferred Language | Unknown | + + + | Marital Status | Single | + + + | Jehovah'S Witness Affiliation | NRP | + + + | Race | White | + + + | Ethnic Group | Not or | + + + Author + + + | Author | [facility] | + + + | Organization | [facility] | + + + | Address | Unknown | + + + | Phone | Unavailable | + + + Support + + + + + | Name | Relationship | Address | Phone | + + + + + | Anderson Rose | ECON | [address] | | | [place] | | [place] [address] | | + + + + + | Gracie Bullock | ECON | [place] | | + + + + + Care Team Providers + +------+ + | Care Electrical Engineering Teacher Name | Role | Phone | + +------+ + | Anisha Rivera | PCP | | + +------+ + Reason for Visit AUTH/CERT +--------+--------+ + + + + | Status | Reason | Specialty | Diagnoses / | Referred By | Referred To | | | | | Procedures | Contact | Contact | +--------+--------+ + + + + | | | | | | | +--------+--------+ + + + + Encounter Details +--------+ + + + + | Date | Type | Department | Care Team | Description | +--------+ + + + + | 07/15/ | Hospital | Maternity Services | Natasha Jones, | | | 2019 - | Encounter | at [facility] | [address], | | | | | [address] | [address] [place], [place] | | | 07/20/ | | [place], [place] | [address] | | | 2018 | | [address] | [phone] | | | | | [phone] | | | | | | | Barrera Lopez MD | | | | | | [address] | | | | | | [address] [place] | | | | | | [address] | | | | | | [phone] | | | | | | | [...] + + + | Blood Pressure | 127/84 | 07/20/2018 11:50 AM | | | | | PST | | + + + + + | Pulse | 85 | 07/20/2018 11:50 AM | | | | | PST | | + + + + + | Temperature | 37.1 C (98.8 F) | 07/20/2018 11:50 AM | | | | | PST | | + + + + + | Respiratory Rate | 18 | 07/20/2018 11:50 AM | | | | | PST | | + + + + + | Oxygen Saturation | 97% | 07/20/2018 11:50 AM | | | | | PST | | + + + + + | Inhaled Oxygen | - | - | | | Concentration | | | | + + + + + | Weight | 125.2 kg (276 lb) | 07/15/2018 8:19 PM | | | | | PST | | + + + + + | Height | 157.5 cm (5' 2") | 07/15/2018 8:19 PM | | | | | PST | | + + + + + | Body Mass Index | 50.48 | 07/15/2018 8:19 PM | | | | | PST | | + + + + + documented in this encounter Discharge Summaries Natasha Jones MD - 07/20/2018 11:57 AM PSTFormatting of this note might be different fro m the original. INPATIENT PHYSICIAN DISCHARGE SUMMARY Attending Physician: Natasha Jones MD PCP: ARTHUR Waters Admission Date: 07/15/2018 Discharge Date: 07/20/18 Admission Diagnosis 1) Espinoza at 39w2d, delivered 2) O24.414 Insulin controlled gestational diabetes mellitus (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 trimester 3. Maternal obesity, BMI 50 4. Velamentous cord insertion 5. Polyhydramnios Discharge Diagnoses: Patients Hospital Problem List: Active Hospital Problems 1) *High-risk in third trimester 2) BMI 45.0-49.9, adult (HCC) 3) Insulin controlled gestational diabetes mellitus (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 trimester 4) Velamentous insertion of umbilical cord in third trimester 5. Polyhydramnios 6. intolerance of labor Procedures During admission: , Low Transverse [251] Reason for Admission, Significant Findings, Treatment and Complications Elizabet Bullock is a 23 y.o. admitted at 39w3d for induction of labor. Her has been complicated by Obesity, GDM, polyhydramnios, and velamentous cord ins ertion. She received Misoprostol (5 doses), transcervical jimenez baloon, and Pitocin to induc e labor. Labor progressed to 4cm when she began to have early, late, and variable decelerati ons. Pitocin was turned off & decelerations resolved. SHe received an epidural for pain , then Pitocin was restarted. Late decelerations returned & were recurrent despite resuscit ation measures. She therefore underwent a primary for intolerance of labor w hich was uncomplicated. By PPD#3 patient was meeting postop and milestones. Her pain was well-controlled , she had minimal lochia and was ready for discharge. Her fasting blood sugar was normal. She declined . She was discharged to home in good condition. She is c onsidering depo vs IUD for control. Baby Information Information for the patient's : Angel Bullock [[id number]] Weight: 3.37 kg (7 lb 6.9 oz) APGARS 1 min: 9 APGARS 5 min: 9 Day of discharge exam: Last Vitals: BP 129/84 | Pulse 96 | Temp 36.7 C (98.1 F) | RR 16 | Ht 1.575 m (5' 2") | Wt 125.2 kg (276 lb) | SpO2 98% | LMP 10/15/2017 | ? Unknown | BMI 50.48 kg/(m ^2) 24 Hour Vital Min/Max: Systolic (24hrs), Av , Min:115 , Max:129 Diastolic (24hrs), Av, Min:79, Max:85 Pulse Min: 87 Max: 96 Temp Min: 36.3 C (97.4 F) Max: 36.8 C (98.3 F) Resp Min: 16 Max: 18 SpO2 Min: 96 % Max: 98 % Intake/Output Summary (Last 24 hours) at 07/20/18 1158 Last data filed at 07/19/18 2300 Gross per 24 hour Intake 200 ml Output 800 ml Net -600 ml Gen: NAD CV: RRR Lungs: CTAB Abd: Soft, nontender, fundus firm & below umbilicus Ext: nontender, no edema Medication List START taking these medications docusate sodium 100 mg Cap Commonly known as: COLACE Take 1 capsule by mouth two times daily. HYDROcodone-acetaminophen 5-325 mg Tab Commonly known as: NORCO Take 1-2 tablets by mouth every six hours as needed (pain). ibuprofen 800 mg Tab Commonly known as: MOTRIN Take 1 tablet by mouth every eight hours as needed. CONTINUE taking these medications electric breast pump-[id number] Length of need: 99 Indications: Lactating Mother Z39.1 (ICD10) V24.1 (ICD9) ferrous sulfate 325 mg total salt (65 mg elemental) Tab Take 1 tablet by mouth once daily. STOP taking these medications aspirin chewable 81 mg Chew Blood Sugar Diagnostic Strp Commonly known as: BLOOD GLUCOSE TEST Blood-Glucose Meter Mis insulin needles (Disposable) 32 gauge x 5/32" Ndle Commonly known as: BD ULTRA-FINE RADHIKA PEN NEEDLE 4 MM X 32 G insulin NPH 100 unit/mL (3 mL) Inpn Commonly known as: HUMULIN N FLEXPEN Lancets Misc Commonly known as: LIFESCAN UNISTIK II LANCETS metoclopramide HCl 10 mg Tab Commonly known as: REGLAN Diet Regular Activities/Other orders: * No strenuous activity or heavy lifting greater than 10 lbs for 6 weeks. * If you had a section, no tub bathing, hot-tubs, or swimming for 6 weeks. Showers OK. * Nothing in the vagina for 6 weeks (no sexual intercourse, tampons, or douching) * Please do not drive while under the influence of narcotics or for the first 2 weeks if yo u had a section * OK: walk up stairs and perform minimal housework Dispo Home Contact information for questions/concerns: To contact your provider, please call the [facility] at [phone] during daytime hours. Follow Up 2-3 days in pp care clinic 2 weeks with Natasha Jones MD Future Appointments Provider Department Dept Phone Center 07/31/2018 11:00 AM Natasha Jones [facility] [place] [phone] [facility] Schedule the following appointment(s) when you get home Maternity Services at [facility]. Go on 07/22/2018. Specialty: Obstetrics & Gynecology Why: As scheduled, for Post Care Clinic with at 12:00pm Contact information [address] [facility] [phone] Natasha Jones MD Discharging Provider: Natasha Jones MD documented in this en counter Discharge Instructions Instructions Keyla Jones RN - 07/19/2018Formatting of this note might be different fr om the original. Section: What to Expect at Home Your Recovery A section, or , is surgery to deliver your baby through a cut, called an incision, that the doctor makes in your lower belly and uterus. You may have some pain in your lower belly and need pain medicine for 1 to 2 weeks. You can expect some vaginal bleeding for several weeks. You will probably need about 6 weeks to ful ly recover. It is important to take it easy while the incision is healing. Avoid heavy lifting, strenuo us activities, or exercises that strain the belly muscles while you are recovering. Ask a [facility]ouse hospital member or friend for help with housework, cooking, and shopping. This care sheet gives you a general idea about how long it will take for you to recover. Bu t each person recovers at a different pace. Follow the steps below to get better as quickly as possible. How can you care for yourself at home? Activity Rest when you feel tired. Getting enough sleep will help you recover. Try to walk each day. Start by walking a little more than you did the day before. Bit by bit, increase the amount you walk. Walking boosts blood flow and helps prevent pneumonia , constipation, and blood clots. Avoid strenuous activities, such as bicycle riding, jogging, weightlifting, and aerob ic exercise, for 6 weeks or until your doctor says it is okay. Until your doctor says it is okay, do not lift anything heavier than your baby. Do not do sit-ups or other exercises that strain the belly muscles for 6 weeks or unt il your doctor says it is okay. Hold a pillow over your incision when you cough or take deep breaths. This will suppo rt your belly and decrease your pain. You may shower as usual. Pat the incision dry when you are done. You will have some vaginal bleeding. Wear sanitary pads. Do not douche or use tampons until your doctor says it is okay. Ask your doctor when you can drive again. You will probably need to take at least 6 weeks off work. It depends on the type of w ork you do and how you feel. Ask your doctor when it is okay for you to have sex. Diet You can eat your normal diet. If your stomach is upset, try bland, low-fat foods like plain rice, broiled chicken, toast, and yogurt. Drink plenty of fluids (unless your doctor tells you not to). You may notice that your bowel movements are not regular right after your surgery. Th is is common. Try to avoid constipation and straining with bowel movements. You may want to take a fiber supplement every day. If you have not had a bowel movement after a couple of da ys, ask your doctor about taking a mild laxative. If you are , limit alcohol. Alcohol can cause a lack of energy and other health problems for the baby when a woman drinks heavily. It can also get in the way of a mom's ability to feed her baby or to care for the child in other ways. There is n't a lot of research about exactly how much alcohol can harm a baby. Having no alcohol is t he safest choice for your baby. If you choose to have a drink now and then, have only one dr ink, and limit the number of occasions that you have a drink. Wait to breastfeed at least 2 hours after you have a drink to reduce the amount of alcohol the baby may get in the milk. Medicines Your doctor will tell you if and when you can restart your medicines. He or she will also give you instructions about taking any new medicines. If you take blood thinners, such as warfarin (Coumadin), clopidogrel (Plavix), or asp irin, be sure to talk to your doctor. He or she will tell you if and when to start taking th ose medicines again. Make sure that you understand exactly what your doctor wants you to do. Take pain medicines exactly as directed. If the doctor gave you a prescription medicine for pain, take it as prescribed. If you are not taking a prescription pain medicine, ask your doctor if you can take an o afy-gwy-vtknxds medicine. If you think your pain medicine is making you sick to your stomach: Take your medicine after meals (unless your doctor has told you not to). Ask your doctor for a different pain medicine. If your doctor prescribed antibiotics, take them as directed. Do not stop taking them just because you feel better. You need to take the full course of antibiotics. Incision care If you have strips of tape on the incision, leave the tape on for a week or until it falls off. Wash the area daily with warm, soapy water, and pat it dry. Don't use hydrogen peroxi de or alcohol, which can slow healing. You may cover the area with a gauze bandage if it wee ps or rubs against clothing. Change the bandage every day. Keep the area clean and dry. Other instructions If you breastfeed your baby, you may be more comfortable while you are healing if you place the baby so that he or she is not resting on your belly. Try tucking your baby under your arm, with his or her body along the side you will be feeding on. Support your baby's up per body with your arm. With that hand you can control your baby's head to bring his or her mouth to your breast. This is sometimes called the football hold. Follow-up care is a emerson part of your treatment and safety. Be sure to make and go to all ap pointments, and call your doctor if you are having problems. It's also a good idea to know y our test results and keep a list of the medicines you take. When should you call for help? Call 911 anytime you think you may need emergency care. For example, call if: You passed out (lost consciousness). You have chest pain, are short of breath, or cough up blood. Call your doctor now or seek immediate medical care if: You have pain that does not get better after you take pain medicine. You have severe vaginal bleeding. You are dizzy or lightheaded, or you feel like you may faint. You have new or worse pain in your belly or pelvis. You have loose stitches, or your incision comes open. You have symptoms of infection, such as: Increased pain, swelling, warmth, or redness. Red streaks leading from the incision. Pus draining from the incision. A fever. You have symptoms of a blood clot in your leg (called a deep vein thrombosis), such a s: Pain in your calf, back of the knee, thigh, or groin. Redness and swelling in your leg or groin. Watch closely for changes in your health, and be sure to contact your doctor if: You do not get better as expected. Where can you learn more? To learn more about " Section: What to Expect at Home", log into your [employer] Customer Support nt at [email or web address]. You can enter M806 in the "[employer] Library" search box. Iron-Rich Diet: Care Instructions Your Care Instructions Your body needs iron to make hemoglobin. Hemoglobin is a substance in red blood cells that carries oxygen from the lungs to cells all through your body. If you do not get enough iron, your body makes fewer and smaller red blood cells. As a result, your body's cells may not g et enough oxygen. Adult men need 8 milligrams of iron a day; adult women need 18 milligrams of iron a day. Af ter menopause, women need 8 milligrams of iron a day. A woman needs 27 milligrams o f iron a day. Infants and young children have higher iron needs relative to their size than other age groups. People who have lost blood because of ulcers or heavy menstrual periods ma y become very low in iron and may develop anemia. Most people can get the iron their bodies need by eating enough of certain iron-rich foods. Your doctor may recommend that you take an iron supplement along with eating an iron-rich d iet. Follow-up care is a emerson part of your treatment and safety. Be sure to make and go to all ap pointments, and call your doctor if you are having problems. It's also a good idea to know y our test results and keep a list of the medicines you take. How can you care for yourself at home? Make iron-rich foods a part of your daily diet. Iron-rich foods include: All meats, such as chicken, beef, acuña, pork, fish, and shellfish. Liver is especially h igh in iron. Leafy green vegetables. Raisins, peas, beans, lentils, barley, and eggs. Iron-fortified breakfast cereals. Eat foods with vitamin C along with iron-rich foods. Vitamin C helps you absorb more iro n from food. Drink a glass of orange juice or another citrus juice with your food. Eat meat and vegetables or grains together. The iron in meat helps your body absorb the iron in other foods. Where can you learn more? To learn more about "Iron-Rich Diet: Care Instructions", log into your madvertise account at h [email or web address]. You can enter Z290 in the "[employer] Library" search box. Not on madvertise? Review the [employer] De[employer] section of your After Visit Summary for directions on jean-claude mckinnon to sign up. Current as of: September 10, 2017 Content Version: .[id number] [employer], [employer] Standards. Care instructions adapted under license by [facility]. If you have questions about a medical condition or this instr uction, always ask your healthcare professional. [employer] disclaims any frederic anty or liability for your use of this information. documented in this encounter Progress Notes Natasha Jones MD - 07/20/2018 8:14 AM PSTFormatting of this note might be different fro m the original. Note PPD#3 Subjective: Patient feeling well, bleeding is minimal, pain well controlled with Ibuprofen & Vicodin, tolerating regular diet, voiding without difficulty. Declines , but has pumped a few times with good results. Last Vitals: BP 129/84 | Pulse 96 | Temp 36.7 C (98.1 F) | RR 16 | Ht 1.575 m (5' 2") | Wt 125.2 kg (276 lb) | SpO2 98% | LMP 10/15/2017 | ? Unknown | BMI 50.48 kg/(m ^2) 24 Hour Vital Min/Max: Systolic (24hrs), Av , Min:115 , Max:129 Diastolic (24hrs), Av, Min:79, Max:85 Pulse Min: 82 Max: 109 Temp Min: 36.5 C (97.7 F) Max: 36.8 C (98.3 F) Resp Min: 18 Max: 18 SpO2 Min: 95 % Max: 96 % Intake/Output Summary (Last 24 hours) at 07/19/18 1157 Last data filed at 07/19/18 0745 Gross per 24 hour Intake 2400 ml Output 1690 ml Net 710 ml General: happy and no acute distress Abdomen: Abdomen soft, obese, minimally tender, no rebound Fundus: Fundus difficult to palpate, Nontender Incision: C/D/I Ext: 1+ LE edema, no calf tenderness Assessment/Plan: Elizabet Bullock is a 23 y.o. female PPD#3 s/p LTCS with normal course. - PP: Pain well controlled, continue Ibuprofen & Vicodin - GDM: Blood sugars normal, no treatment indicated - gHTN: No further elevated BP, no s/s of pre-e - VTE prophy: Lovenox nightly, ambulating - Cont. Routine PP care. Encouraged to continue pumping Natasha Jones MD Barrera Koroma MD - 0 07/19/2018 11:57 AM PST Note PPD#1 Subjective: Patient feeling well, bleeding is minimal, pain well controlled with Ibuprofen & Vicodin, tolerating regular diet, voiding without difficulty after jimenez removal this morn ing. Declines , but has pumped a few times with good results. Last Vitals: BP 108/89 | Pulse 94 | Temp 36.7 C (98.1 F) | RR 18 | Ht 1.575 m (5' 2") | Wt 125.2 kg (276 lb) | SpO2 96% | LMP 10/15/2017 | ? Unknown | BMI 50.48 kg/(m ^2) 24 Hour Vital Min/Max: Systolic (24hrs), Av , Min:103 , Max:119 Diastolic (24hrs), Av, Min:66, Max:89 Pulse Min: 82 Max: 109 Temp Min: 36.5 C (97.7 F) Max: 36.8 C (98.3 F) Resp Min: 18 Max: 18 SpO2 Min: 95 % Max: 96 % Intake/Output Summary (Last 24 hours) at 07/19/18 1157 Last data filed at 07/19/18 0745 Gross per 24 hour Intake 2400 ml Output 1690 ml Net 710 ml General: happy and no acute distress Abdomen: Abdomen soft, obese, minimally tender, no rebound Fundus: Fundus difficult to palpate, Nontender Incision: C/D/I Assessment/Plan: Elizabet Bullock is a 23 y.o. female s/p LTCS with normal course. - PP: Pain well controlled, continue Ibuprofen & Vicodin - GDM: Blood sugars normal, no treatment indicated - gHTN: No further elevated BP, no s/s of pre-e - VTE prophy: Lovenox nightly, ambulating - Cont. Routine PP care. Encouraged to continue pumping BARRERA LOPEZ MD Barrera Koroma MD - 07/2018 5:06 PM PST Note PPD#1 Subjective: Patient feeling well, bleeding decreasing, tolerating regular diet, voiding wit hout difficulty. Last Vitals: BP 103/70 | Pulse 96 | Temp 36.6 C (97.9 F) | RR 18 | Ht 1.575 m (5' 2") | Wt 125.2 kg (276 lb) | SpO2 96% | LMP 10/15/2017 | ? Unknown | BMI 50.48 kg/(m ^2) 24 Hour Vital Min/Max: Systolic (24hrs), Av , Min:103 , Max:152 Diastolic (24hrs), Av, Min:49, Max:97 Pulse Min: 88 Max: 113 Temp Min: 36.6 C (97.9 F) Max: 38.6 C (101.5 F) Resp Min: 16 Max: 112 SpO2 Min: 93 % Max: 100 % Intake/Output Summary (Last 24 hours) at 07/18/18 1706 Last data filed at 07/18/18 1600 Gross per 24 hour Intake 6840 ml Output 2575 ml Net 4265 ml General: happy and no acute distress Abdomen: abdomen obese, soft, minimally tender, no rebound Uterus: Fundus firm & below umbilicus; Nontender Incision: Dressing C/D/I Assessment/Plan: Elizabet Bullock is a 23 y.o. female s/p LTCS with normal course. - Pain well controlled, continue current regminen - GDM: Blood sugars normal, sliding scale insulin ordered, though none indicated at this po int - Patient uncertain about , may attempt this afternoon, discussed benefits wit h patient & boyfriend - DVT/PE prophylaxis: SCDs on, Lovenox nightly - Cont. Routine PP care. BARRERA LOPEZ MD Barrera Koroma MD - 06/2018 10:13 PM PSTIntrapartum Note Subjective I was called in for a prolonged decel after recurrent variable & late decelerations. Pitocin has been turned off, patient repositioned & IVF infusing. BOX TOE BUFFER was called to assist with resuscitation. Patient is comfortable though anxious regarding current situation. Objective Temp: 37.3 C (99.1 F) (07/17/182099) Pulse: 94 (07/17/182099) Resp: 20 (07/17/182099) BP: 110/62 (07/17/182099) Contraction Quality: Mild;Moderate (07/17/182044) Contraction Frequency (min): 5-6 (07/17/182044) Contraction Duration (sec): 140-150 (07/17/182044) Dilation (cm): 5 (07/17/181736) Effacement (%): 75 (07/17/181549) Station: -3 (07/17/181549) CTX: Every 4-6min FHR: 120/moderate variability/ + decelerations Severe deceleration occurred at 21:51 to a marion of 40bpm. The deceleration lasted for a to jasmine of 5 minutes then resolved to 120bpm. Assessment/Plan: Elizabet Bullock is a 23 y.o. female at 39w2d with morbid obesity, GDM & v elamentous cord insertion. In the setting of recurrent variable & late decelerations when on Pitocin & a prolonged dec eleration, a section is recommended & patient agreed. We discussed the risks of pro ceeding with labor including distress & arrest of labor. We also discussed the risks of a including infection, bleeding, injury to internal organs. Patient agrees to pr oceed with & written consent was obtained. Blood sugar now 101. BARRERA LOPEZ MD Barrera Koroma MD - 06/2018 7:12 PM PSTS: Patient is now comfortable with epidural O: BP 152/83 | Pulse 70 | Temp 36.7 C (98 F) | RR 18 | Ht 1.575 m (5' 2") | Wt 125.2 kg (276 lb) | SpO2 98% | LMP 10/15/2017 | BMI 50.48 kg/(m^2) Gen: NAD [place]: Ctx every 5-6min FHR: 125/moderate variability/ + accelerations/ no decelerations A/P: Elizabet Bullock is a 23 y.o. female at 39w2d induction for GDM - FHR decelerations resolved with Pitocin off, plan 1hr break, then restart titrating Pitoc in to adequate contractions. - Place jimenez catheter now to monitor UOP closely - gHTN: Pre-e labs remain normal BARRERA LOPEZ MD arrera Lopez MD - 07/17/2018 6:32 PM PSTFormatting of this note might be different from the germain ginal. Intrapartum Note Subjective Patient c/o increasing pain with contractions. Pitocin up to 13mu Received Nubain for pain at 16:30 with minimal relief Objective Last Vitals: BP 152/83 | Pulse 70 | Temp 36.7 C (98 F) | RR 18 | Ht 1.575 m (5' 2") | W t 125.2 kg (276 lb) | SpO2 98% | LMP 10/15/2017 | BMI 50.48 kg/(m^2) 24 Hour Vital Min/Max: Systolic (24hrs), Av , Min:118 , Max:152 Diastolic (24hrs), Av, Min:64, Max:87 Pulse Min: 70 Max: 97 Temp Min: 36.7 C (98 F) Max: 37.1 C (98.7 F) Resp Min: 18 Max: 22 SpO2 Min: 95 % Max: 98 % Intake/Output Summary (Last 24 hours) at 07/17/18 1834 Last data filed at 07/17/18 1543 Gross per 24 hour Intake 3310 ml Output 425 ml Net 2885 ml Contractions: Every 2-3min FHR: 120/moderate variability/ + scalp stimulation/ early & variable decelerations with oc casional late-appearing decelerations SVE: 5/80/-2 Scalp lead placed Assessment/Plan: Elizabet Bullock is a 23 y.o. female at 39w2d undergoing induction of labor for GDM. - status: Category II, patient receiving IVF bolus, Pitocin turned off to allow feta l recovery & clarify types of decelerations, scalp lead placed to better clarify FHR pattern . - Labor: Labor has progressed since SROM this afternoon from 4-5cm. If fetus does not wei erate Pitocin, may need section, however will allow all recussitative efforts first considering patient's BMI >50 & surgical risks. - Pain: Epidural being placed now. Dr. Dallas aware of potential need for sectio n & will dose epidural with modifications in case is indicated. - GDM: Normal blood sugars today, medical treatment not indicated - Low urine output: Jimenez catheter to be placed to closely monitor UOP. - Gestational Hypertension: No evidence of pre-eclampsia or symptoms of pre-eclampsia. BP improves spontaneously with pain control. Repeat pre-eclampsia labs ordered. BARRERA LOPEZ MD Barrera oKroma MD - 06/2018 8:42 AM PSTIntrapartum Note Subjective Patient reporting increasing pain with contractions. Objective Temp: 36.8 C (98.3 F) (07/17/18 0400) Pulse: 92 (07/17/18 0400) Resp: 20 (07/17/18 0400) BP: 118/66 (07/17/18 0400) Contraction Quality: Mild (07/17/18 0730) [place]: Contractions every 2-3 minutes heart tones: Category 1 SVE: 3/50%/high and towards patient right Assessment/plan: Elizabet Bullock is a 23 y.o. female at 39w2d with induct ion for gestational diabetes on insulin. - minimal progression in labor s/p misoprostol x5 and Jimenez will placement. Currently on P itocin with regular and increasingly strong contractions. Continue to increase Pitocin for induction. - blood sugars within normal limits during admission. Plan 1 hour postprandial blood sugar this morning and treatment with sliding scale insulin. Blood sugars every 4 hours thereaft er BARRERA LOPEZ MD Natasha Louis MD - 0 07/16/2018 5:29 PM PST Intrapartum Note Subjective Patient reports contractions now a little more painful. Objective Temp: 36.7 C (98.1 F) (07/16/18 1545) Pulse: 80 (07/16/18 1545) Resp: 18 (07/16/18 1545) BP: 121/75 (07/16/18 1545) Contraction Quality: Mild (07/16/18 1545) Contraction Frequency (min): 4-5 (07/16/18 1545) Contraction Duration (sec): 90-100 (07/16/18 1545) Dilation (cm): 0 (07/16/18 1303) Effacement (%): 0 (07/16/18 1303) Station: -4 (07/16/18 0230) SVE: 1/long/-4/soft, jimenez placed and inflated to 40 mL FHT: baseline 130, mod variability, +accels, - decels [place]: Q 4-6min Meds: NPH 12 units last night Miso x 4 Results for ELIZABET BULLOCK ( ) as of 07/16/2018 17:31 Ref. Range 07/16/2018 07:27 07/16/2018 13:43 BLOOD GLUCOSE, POC Latest Ref Range: 70 - 105 mg/dL 85 118 Assessment/Plan 23 y.o. at 39w1d a/f IOL 2/2 A2GDM. c/b obesity, velamentous cord inserti on. #. Labor: Now s/p jimenez placement - Will monitor contractions and if </= 2 in 10 min, will give 5th dose of miso #. FWB: Cat 1, CEFM x 3 hr with 1 hr break after #. GDM: CBGs within goal - Continue CBGs fasting and 1hr PP while patient eating - CBGs q2hr in active labor #. Elevated BP: single elevated value on admission. Preeclampsia labs negative. Subsequent BPs wnl. - Continue to monitor Natasha Jones MD uildNatasha MD - 07/16/2018 1:29 PM PSTIntrapartum Note Subjective Patient comfortable. Feeling contractions, but not very painful. Resting. Objective Temp: 36.8 C (98.2 F) (07/16/18 0755) Pulse: 93 (07/16/18 0857) Resp: 18 (07/16/18856) BP: 128/73 (07/16/18 0857) Contraction Quality: Mild (07/16/18929) Contraction Frequency (min): 4-7 (07/16/18929) Contraction Duration (sec): 70-120 (07/16/18929) Dilation (cm): 0 (07/16/18229) Effacement (%): 0 (07/16/18229) Station: -4 (07/16/18229) SVE: closed/long/soft FHT: baseline 130, mod variability, +accels, - decels [place]: Q 5-6min Meds: NPH 12 units last night Miso x 3 Assessment/Plan 23 y.o. at 39w1d a/f IOL 2/2 A2GDM. c/b obesity, velamentous cord inserti on. #. Labor: cervix closed, unable to place jimenez - 4th dose of miso now #. FWB: Cat 1, CEFM x 3 hr with 1 hr break after #. GDM: fasting CBG 85 this am. - Continue CBGs fasting and 1hr PP while patient eating #. Elevated BP: single elevated value on admission. Preeclampsia labs negative. Subsequent BPs wnl. - Continue to monitor Natasha Jones MD uild, Natasha Mckinnon MD - 07/16/2018 9:57 AM PSTIntrapartum Note Subjective Patient comfortable. Feeling contractions, but not very painful. Objective Temp: 36.8 C (98.2 F) (07/16/18 0755) Pulse: 93 (07/16/18 08) Resp: 18 (07/16/18856) BP: 128/73 (07/16/1857) Contraction Quality: Mild (07/16/18929) Contraction Frequency (min): 4-7 (07/16/18929) Contraction Duration (sec): 70-120 (07/16/18929) Dilation (cm): 0 (07/16/18229) Effacement (%): 0 (07/16/18229) Station: -4 (07/16/18229) SVE: unchanged. FHT: baseline 130, mod variability, +accels, - decels [place]: Q 5-6min Meds: NPH 12 units last night Miso x 3 Assessment/Plan 23 y.o. at 39w1d a/f IOL 2/2 A2GDM. c/b obesity, velamentous cord inserti on. #. Labor: - Continue cervical ripening with miso, repeat exam at 12:30 and consider jimenez #. FWB: Cat 1, CEFM #. GDM: fasting CBG 85 this am. - Will give 1/2 of NPH AM dose- 3 units - Continue CBGs fasting and 1hr PP while patient eating #. Elevated BP: single elevated value on admission. Preeclampsia labs negative. Subsequent BPs wnl. - Continue to monitor Natasha Jones MD documented in this en counter Plan of Treatment Not on filedocumented as of this encounter Procedures + +--------+ + + + | Procedure Name | Priori | Date/Time | Associated Diagnosis | Comments | | | ty | | | | + +--------+ + + + | CAP GLU,POC | Routin | 07/20/2018 | | Results for this | | | e | 6:22 AM | | procedure are in the | | | | PST | | results section. | + +--------+ + + + | CAP GLU,POC | Routin | 07/19/2018 | | Results for this | | | e | 8:05 PM | | procedure are in the | | | | PST | | results section. | + +--------+ + + + | CAP GLU,POC | Routin | 07/19/2018 | | Results for this | | | e | 1:29 PM | | procedure are in the | | | | PST | | results section. | + +--------+ + + + | CAP GLU,POC | Routin | 07/19/2018 | | Results for this | | | e | 6:03 AM | | procedure are in the | | | | PST | | results section. | + +--------+ + + + | CAP GLU,POC | Routin | 07/18/2018 | | Results for this | | | e | 7:32 PM | | procedure are in the | | | | PST | | results section. | + +--------+ + + + | CAP GLU,POC | Routin | 07/18/2018 | | Results for this | | | e | 11:47 AM | | procedure are in the | | | | PST | | results section. | + +--------+ + + + | CBC ONLY | Routin | 07/18/2018 | | Results for this | | | e | 6:59 AM | | procedure are in the | | | | PST | | results section. | + +--------+ + + + | CBC (HEMOGRAM ONLY) | Routin | 07/18/2018 | | Results for this | | | e | 6:59 AM | | procedure are in the | | | | PST | | results section. | + +--------+ + + + | CAP GLU,POC | Routin | 07/18/2018 | | Results for this | | | e | 6:34 AM | | procedure are in the | | | | PST | | results section. | + +--------+ + + + | SECTION FOR | Routin | 07/18/2018 | | Results for this | | DISTRESS | e | 12:10 AM | | procedure are in the | | | | PST | | results section. | + +--------+ + + + | SECTION | Urgent | 07/17/2018 | LABOR/REPEAT C | | | | | 10:38 PM | SECTION | | | | Surgic | PST | | | | | al | | | | + +--------+ + + + | CAP GLU,POC | Routin | 07/17/2018 | | Results for this | | | e | 10:04 PM | | procedure are in the | | | | PST | | results section. | + +--------+ + + + | CAP GLU,POC | Routin | 07/17/2018 | | Results for this | | | e | 8:01 PM | | procedure are in the | | | | PST | | results section. | + +--------+ + + + | PROTEIN, URINE | Routin | 07/17/2018 | | Results for this | | | e | 8:00 PM | | procedure are in the | | | | PST | | results section. | + +--------+ + + + | CREATININE, URINE | Routin | 07/17/2018 | | Results for this | | | e | 8:00 PM | | procedure are in the | | | | PST | | results section. | + +--------+ + + + | CBC W/DIFF, REFLEX | Routin | 07/17/2018 | | Results for this | | | e | 6:10 PM | | procedure are in the | | | | PST | | results section. | + +--------+ + + + | CBC AND AUTO DIFF | Routin | 07/17/2018 | | Results for this | | | e | 6:10 PM | | procedure are in the | | | | PST | | results section. | + +--------+ + + + | AST, PLASMA | Routin | 07/17/2018 | | Results for this | | | e | 6:10 PM | | procedure are in the | | | | PST | | results section. | + +--------+ + + + | URIC ACID, PLASMA | Routin | 07/17/2018 | | Results for this | | | e | 6:10 PM | | procedure are in the | | | | PST | | results section. | + +--------+ + + + | UREA NITROGEN, | Routin | 07/17/2018 | | Results for this | | PLASMA | e | 6:10 PM | | procedure are in the | | | | PST | | results section. | + +--------+ + + + | CREATININE, PLASMA | Routin | 07/17/2018 | | Results for this | | | e | 6:10 PM | | procedure are in the | | | | PST | | results section. | + +--------+ + + + | CAP GLU,POC | Routin | 07/17/2018 | | Results for this | | | e | 2:06 PM | | procedure are in the | | | | PST | | results section. | + +--------+ + + + | CAP GLU,POC | Routin | 07/17/2018 | | Results for this | | | e | 10:10 AM | | procedure are in the | | | | PST | | results section. | + +--------+ + + + | CAP GLU,POC | Routin | 07/17/2018 | | Results for this | | | e | 4:03 AM | | procedure are in the | | | | PST | | results section. | + +--------+ + + + | CAP GLU,POC | Routin | 07/17/2018 | | Results for this | | | e | 12:41 AM | | procedure are in the | | | | PST | | results section. | + +--------+ + + + | CAP GLU,POC | Routin | 07/16/2018 | | Results for this | | | e | 8:04 PM | | procedure are in the | | | | PST | | results section. | + +--------+ + + + | CAP GLU,POC | Routin | 07/16/2018 | | Results for this | | | e | 1:43 PM | | procedure are in the | | | | PST | | results section. | + +--------+ + + + | CAP GLU,POC | Routin | 07/16/2018 | | Results for this | | | e | 7:27 AM | | procedure are in the | | | | PST | | results section. | + +--------+ + + + | PROTEIN, URINE | Routin | 07/15/2018 | | Results for this | | | e | 10:00 PM | | procedure are in the | | | | PST | | results section. | + +--------+ + + + | CREATININE, URINE | Routin | 07/15/2018 | | Results for this | | | e | 10:00 PM | | procedure are in the | | | | PST | | results section. | + +--------+ + + + | CBC W/DIFF, REFLEX | Routin | 07/15/2018 | | Results for this | | | e | 9:15 PM | | procedure are in the | | | | PST | | results section. | + +--------+ + + + | CBC AND AUTO DIFF | Routin | 07/15/2018 | | Results for this | | | e | 9:15 PM | | procedure are in the | | | | PST | | results section. | + +--------+ + + + | COMPLETE METABOLIC | Routin | 07/15/2018 | | Results for this | | SET | e | 9:15 PM | | procedure are in the | | (NA,K,CL,CO2,BUN,CRE | | PST | | results section. | | AT,GLUC,CA,AST,ALT,B | | | | | | SARA TOTAL,ALK | | | | | | PHOS,ALB,PROT TOTAL) | | | | | + +--------+ + + + | ANTIBODY | Routin | 07/15/2018 | | Results for this | | IDENTIFICATION | e | 9:15 PM | | procedure are in the | | | | PST | | results section. | + +--------+ + + + | ANTIBODY SCREEN | Routin | 07/15/2018 | | Results for this | | | e | 9:15 PM | | procedure are in the | | | | PST | | results section. | + +--------+ + + + | TYPE AND SCREEN | Routin | 07/15/2018 | | Results for this | | | e | 9:15 PM | | procedure are in the | | | | PST | | results section. | + +--------+ + + + | ABO & RH TYPE | Routin | 07/15/2018 | | Results for this | | | e | 9:15 PM | | procedure are in the | | | | PST | | results section. | + +--------+ + + + documented in this encounter Results MEET GLU,POC (07/20/2018 6:22 AM PST) + +-------+ + + + | Component | Value | Ref Range | Performed | Pathologist | | | | | At | Signature | + +-------+ + + + | BLOOD | 93 | 70 - 105 mg/dL | [facility] | | | GLUCOSE, | | | OF CARE | | | POC | | | TESTING | | + +-------+ + + + + + | Specimen | + + | Blood | + + + +---------+ + + | Performing | Address | City/State/Zipcode | Phone Number | | Organization | | | | + +---------+ + + | [facility] | | | | | TESTING | | | | + +---------+ + + CAP GLU,POC (07/19/2018 8:05 PM PST) + +-------+ + + + | Component | Value | Ref Range | Performed | Pathologist | | | | | At | Signature | + +-------+ + + + | BLOOD | 90 | 70 - 105 mg/dL | [facility] | | | GLUCOSE, | | | OF CARE | | | POC | | | TESTING | | + +-------+ + + + + + | Specimen | + + | Blood | + + + +---------+ + + | Performing | Address | City/State/Zipcode | Phone Number | | Organization | | | | + +---------+ + + | [facility] | | | | | TESTING | | | | + +---------+ + + CAP GLU,POC (07/19/2018 1:29 PM PST) + +-------+ + + + | Component | Value | Ref Range | Performed | Pathologist | | | | | At | Signature | + +-------+ + + + | BLOOD | 120 | 70 - 105 mg/dL | [facility] | | | GLUCOSE, | | | OF CARE | | | POC | | | TESTING | | + +-------+ + + + + + | Specimen | + + | Blood | + + + +---------+ + + | Performing | Address | City/State/Zipcode | Phone Number | | Organization | | | | + +---------+ + + | [facility] | | | | | TESTING | | | | + +---------+ + + CAP GLU,POC (07/19/2018 6:03 AM PST) + +-------+ + + + | Component | Value | Ref Range | Performed | Pathologist | | | | | At | Signature | + +-------+ + + + | BLOOD | 88 | 70 - 105 mg/dL | [facility] | | | GLUCOSE, | | | OF CARE | | | POC | | | TESTING | | + +-------+ + + + + + | Specimen | + + | Blood | + + + +---------+ + + | Performing | Address | City/State/Zipcode | Phone Number | | Organization | | | | + +---------+ + + | [facility] | | | | | TESTING | | | | + +---------+ + + CAP GLU,POC (07/18/2018 7:32 PM PST) + +-------+ + + + | Component | Value | Ref Range | Performed | Pathologist | | | | | At | Signature | + +-------+ + + + | BLOOD | 114 | 70 - 105 mg/dL | [facility] | | | GLUCOSE, | | | OF CARE | | | POC | | | TESTING | | + +-------+ + + + + + | Specimen | + + | Blood | + + + +---------+ + + | Performing | Address | City/State/Zipcode | Phone Number | | Organization | | | | + +---------+ + + | [facility] | | | | | TESTING | | | | + +---------+ + + CAP DYAN MONCADA (07/18/2018 11:47 AM PST) + +-------+ + + + | Component | Value | Ref Range | Performed | Pathologist | | | | | At | Signature | + +-------+ + + + | BLOOD | 104 | 70 - 105 mg/dL | [facility] | | | GLUCOSE, | | | OF CARE | | | POC | | | TESTING | | + +-------+ + + + + + | Specimen | + + | | + + + +---------+ + + | Performing | Address | City/State/Zipcode | Phone Number | | Organization | | | | + +---------+ + + | [facility] | | | | | TESTING | | | | + +---------+ + + CBC ONLY (07/18/2018 6:59 AM PST) + + + + + + | Component | Value | Ref Range | Performed | Pathologist | | | | | At | Signature | + + + + + + | WHITE CELL | 19.06 (H) | 3.50 - 10.80 | [facility] | | | COUNT | | K/cu mm | A [facility]ICAL | | | | | | CENTER | | + + + + + + | RED CELL | 3.51 (L) | 4.00 - 5.20 | [facility] | | | COUNT | | M/cu mm | A MEDICAL | | | | | | CENTER | | + + + + + + | HEMOGLOBIN | 9.7 (L) | 12.0 - 16.0 | [facility] | | | | | g/dL | A MED[facility] | | | | | | CENTER | | + + + + + + | HEMATOCRIT | 28.3 (L) | 36.0 - 46.0 % | [facility] | | | | | | A MED[facility] | | | | | | CENTER | | + + + + + + | MCV | 80.6 | 80.0 - 96.0 fL | [facility] | | | | | | A [facility] | | | | | | CENTER | | + + + + + + | MCH | 27.6 (L) | 28.0 - 34.7 pg | [facility] | | | | | | A [facility] | | | | | | CENTER | | + + + + + + | MCHC | 34.3 | 33.0 - 35.5 | [facility] | | | | | g/dL | A [facility] | | | | | | CENTER | | + + + + + + | RDW | 14.4 | 11.5 - 14.5 % | [facility] | | | | | | A [facility] | | | | | | CENTER | | + + + + + + | PLATELET | 242 | 150 - 400 K/cu | [facility] | | | COUNT | | mm | A MEDICAL | | | | | | CENTER | | + + + + + + | MPV | 11.6 (H) | 7.5 - 11.2 fL | [facility] | | | | | | A MEDICAL | | | | | | CENTER | | + + + + + + + + | Specimen | + + | Blood - Blood | | (substance) | + + + + + | Narrative | Performed At | + + + | No reflex rules apply to this test. | [facility] | | | MEDICAL CENTER | + + + + + + + + | Performing | Address | City/State/Zipcode | Phone Number | | Organization | | | | + + + + + | [facility] | And | [place] [address] | [phone] | | MEDICAL [facility]ENTER | [address] | | | + + + + + CAP GLU,POC (07/18/2018 6:34 AM PST) + +-------+ + + + | Component | Value | Ref Range | Performed | Pathologist | | | | | At | Signature | + +-------+ + + + | BLOOD | 144 | 70 - 105 mg/dL | [facility] | | | GLUCOSE, | | | OF CARE | | | POC | | | TESTING | | + +-------+ + + + + + | Specimen | + + | Blood | + + + +---------+ + + | Performing | Address | City/State/Zipcode | Phone Number | | Organization | | | | + +---------+ + + | [facility] | | | | | TESTING | | | | + +---------+ + + SECTION FOR DISTRESS (07/18/2018 12:10 AM PST) + + + | Narrative | Performed At | + + + | Barrera Lopez MD 07/18/2018 12:17 AM [facility] | | | Delivery Note Patient's Name: Elizabet Bullock MRN: | | | [id number] : 1995 Procedure Date: 07/18/2018 Surgeon: | | | BARRERA LOPEZ MD [employer] Worker: Natasha Jones MD Preoperative | | | Diagnoses 1. Intrauterine at 39w3d 2. intolerance | | | of labor 3. Maternal obesity, BMI 50 4. GDM 5. Velamentous cord | | | insertion 6. Polyhydramnios Postoperative Diagnoses Same | | | Procedure Section EBL: 400ml IVF & UOP: see | | | anesthesia record Anesthesia: Spinal with duramorph Pre-op | | | antibiotics: Ancef 3g Complications: none Specimens: cord Cord | | | Gases Sent: yes Indications Elizabet Bullock is a | | | 23 y.o. admitted at 39w3d for induction of labor. Her | | | has been complicated by Obesity, GDM, polyhydramnios, and | | | velamentous cord insertion. She received Misoprostol (5 doses), | | | transcervical jimenez baloon, and Pitocin to induce labor. Labor | | | progressed to 4cm when she began to have early, late, and variable | | | decelerations. Pitocin was turned off & decelerations resolved. | | | SHe received an epidural for pain, then Pitocin was restarted. | | | Late decelerations returned & were recurrent despite resuscitation | | | measures. The patient's cervix was 4-5cm prior to proceeding with | | | a section. The primary indication is: | | | intolerance of labor. The priority is: urgent PARQ | | | was held and consents signed prior to procedure. Infant 's | | | Name: Angel Bullock Delivery Date: 07/17/2018 | | | Delivery Time: 11:04 PM Findings Placenta Appearance: normal with | | | significant velamentous cord insertion, 3 vessel cord Normal | | | appearing Uterus, tubes and ovaries bilaterally Procedure in | | | Detail The patient was taken to the operating room and placed in the | | | supine position with left lateral tilt and prepped and draped in | | | the usual manner following the establishment of adequate anesthesia. | | | A Pfannenstiel incision was made and extended down through the | | | skin, subcutaneous tissue, fascia, and into the peritoneal cavity. A | | | self retaining Ruben retractor was placed. A bladder flap was | | | carefully created. A transverse lower uterine segment incision was | | | made. A viable fetus was delivered and, the cord clamping was | | | delayed for approximately 60 seconds. The infant was then passed | | | over to the awaiting pediatrics team for management. The placenta | | | was removed spontaneously. Subsequent manual exploration of the | | | uterine cavity revealed no placental remnants and a normal cavity. | | | The uterine incision was closed using 0 Vicryl in a running-locked | | | stitch. A second imbricating layer was placed in the reverse | | | direction, with the same suture. Hemostasis was observed at the at | | | the uterine incision. The peritoneum was reapproximated using 2-0 | | | Vicryl in a running manner. The fascial layer was closed using | | | 0-PDS material in a running stitch. The Subcutaneous tissue was | | | noted to be hemostatic. The deep subcutaneous tissue was | | | reapproximated with 2-0 vicryl. The skin edges were closed with a | | | 4-0 V-lock stich in a subcuticular fashion. Steri strips and a | | | sterile dressing was placed over the wound. The patient tolerated | | | the procedure well. DISPOSITION: To recovery in good | | | condition. COUNTS: Needle, sponge, instrument counts correct. | | | BARREAR LOPEZ MD | | + + + CAP GLU,POC (07/17/2018 10:04 PM PST) + +-------+ + + + | Component | Value | Ref Range | Performed | Pathologist | | | | | At | Signature | + +-------+ + + + | BLOOD | 100 | 70 - 105 mg/dL | [facility] | | | GLUCOSE, | | | OF CARE | | | POC | | | TESTING | | + +-------+ + + + + + | Specimen | + + | Blood | + + + +---------+ + + | Performing | Address | City/State/Zipcode | Phone Number | | Organization | | | | + +---------+ + + | [facility] | | | | | TESTING | | | | + +---------+ + + CAP GLU,POC (07/17/2018 8:01 PM PST) + +-------+ + + + | Component | Value | Ref Range | Performed | Pathologist | | | | | At | Signature | + +-------+ + + + | BLOOD | 101 | 70 - 105 mg/dL | [facility] | | | GLUCOSE, | | | OF CARE | | | POC | | | TESTING | | + +-------+ + + + + + | Specimen | + + | Blood | + + + +---------+ + + | Performing | Address | City/State/Zipcode | Phone Number | | Organization | | | | + +---------+ + + | [facility] | | | | | TESTING | | | | + +---------+ + + PROTEIN, URINE (07/17/2018 8:00 PM PST) + + + + + + | Component | Value | Ref Range | Performed | Pathologist | | | | | At | Signature | + + + + + + | PROTEIN | 43 | mg/dL | [facility] | | | CONC URINE | | | A MEDICAL | | | | | | CENTER | | + + + + + + | PROTEIN/CRE | 0.18 (H) | <0.16 mg/mg | [facility] | | | ATININE | | | A MEDICAL | | | RATIO | | | CENTER | | + + + + + + + + | Specimen | + + | Urine - Catheter, | | device (physical | | object) | + + + + + + + | Performing | Address | City/State/Zipcode | Phone Number | | Organization | | | | + + + + + | [facility] | And | [place] [address] | [phone] | | [facility] [place] | [address] | | | + + + + + CREATININE, URINE (07/17/2018 8:00 PM PST) + +-------+ + + + | Component | Value | Ref Range | Performed | Pathologist | | | | | At | Signature | + +-------+ + + + | CREATININE | 245.4 | 20.0 - 320.0 | [facility] | | | CONC URINE | | mg/dL | A MEDICAL | | | | | | CENTER | | + +-------+ + + + + + | Specimen | + + | Urine - Catheter, | | device (physical | | object) | + + + + + + + | Performing | Address | City/State/Zipcode | Phone Number | | Organization | | | | + + + + + | [facility] | And | [place] [address] | [phone] | | MEDICAL [facility]ENTER | [address] | | | + + + + + CBC AND AUTO DIFF (07/17/2018 6:10 PM PST) + + + + + + | Component | Value | Ref Range | Performed | Pathologist | | | | | At | Signature | + + + + + + | WHITE CELL | 14.50 (H) | 3.50 - 10.80 | [facility] | | | COUNT | | K/cu mm | A MEDICAL | | | | | | CENTER | | + + + + + + | RED CELL | 4.11 | 4.00 - 5.20 | [facility] | | | COUNT | | M/cu mm | A MEDICAL | | | | | | CENTER | | + + + + + + | HEMOGLOBIN | 11.2 (L) | 12.0 - 16.0 | [facility] | | | | | g/dL | A MEDICAL | | | | | | CENTER | | + + + + + + | HEMATOCRIT | 33.4 (L) | 36.0 - 46.0 % | [facility] | | | | | | A MEDICAL | | | | | | CENTER | | + + + + + + | MCV | 81.3 | 80.0 - 96.0 fL | [facility] | | | | | | A MEDICAL | | | | | | CENTER | | + + + + + + | MCH | 27.3 (L) | 28.0 - 34.7 pg | [facility] | | | | | | A MEDICAL | | | | | | CENTER | | + + + + + + | MCHC | 33.5 | 33.0 - 35.5 | [facility] | | | | | g/dL | A MEDICAL | | | | | | CENTER | | + + + + + + | RDW | 14.4 | 11.5 - 14.5 % | [facility] | | | | | | A [facility] | | | | | | CENTER | | + + + + + + | PLATELET | 263 | 150 - 400 K/cu | [facility] | | | COUNT | | mm | A MEDICAL | | | | | | CENTER | | + + + + + + | MPV | 11.6 (H) | 7.5 - 11.2 fL | [facility] | | | | | | A [facility] | | | | | | CENTER | | + + + + + + | NRBC% | 0.0 | 0.0 - 0.3 % | [facility] | | | | | | A MEDICAL | | | | | | [facility] | | + + + + + + | NRBC# | 0.00 | 0.00 - 0.02 | [facility] | | | | | K/cu mm | [facility] | | | | | [facility] | | + + + + + + | NEUTROPHIL | 85.4 (H) | 50.0 - 70.0 % | [facility] | | | % | | | [facility] | | | | | | [facility] | | + + + + + + | LYMPHOCYTE | 6.5 (L) | 18.0 - 42.0 % | [facility] | | | % | | | [facility] | | | | | | [facility] | | + + + + + + | MONOCYTE % | 7.1 | 3.5 - 9.0 % | [facility] | | | | | | A MEDICAL | | | | | | CENTER | | + + + + + + | EOS % | 0.4 (L) | 1.0 - 3.0 % | [facility] | | | | | | A MEDICAL | | | | | | CENTER | | + + + + + + | BASO % | 0.2 | 0.0 - 2.0 % | [facility] | | | | | | A [facility]ICAL | | | | | | CENTER | | + + + + + + | IG% | 0.4 | 0.0 - 1.0 % | [facility] | | | | | | A [facility]ICAL | | | | | | CENTER | | + + + + + + | NEUTROPHIL | 12.38 (H) | 1.80 - 7.70 | [facility] | | | # | | K/cu mm | A MEDICAL | | | | | | CENTER | | + + + + + + | LYMPHOCYTE | 0.94 (L) | 1.00 - 4.80 | [facility] | | | # | | K/cu mm | A MEDICAL | | | | | | CENTER | | + + + + + + | MONOCYTE # | 1.03 (H) | 0.10 - 0.90 | [facility] | | | | | K/cu mm | A MEDICAL | | | | | | CENTER | | + + + + + + | EOS # | 0.06 | 0.00 - 0.50 | [facility] | | | | | K/cu mm | A MEDICAL | | | | | | CENTER | | + + + + + + | BASO # | 0.03 | 0.00 - 0.10 | [facility] | | | | | K/cu mm | A MEDICAL | | | | | | CENTER | | + + + + + + | IG# | 0.06 | 0.00 - 0.10 | [facility] | | | | | K/cu mm | A MEDICAL | | | | [...] + + + + | [facility] | [address] | [place] [address] | [phone] | | MEDICAL CENTER | Streets | | | + + + + + CREATININE, PLASMA (07/17/2018 6:10 PM PST) + +-------+ + + + | Component | Value | Ref Range | Performed | Pathologist | | | | | At | Signature | + +-------+ + + + | CREATININE, | 0.6 | 0.6 - 1.1 mg/dL | [facility] | | | PLASMA | | | A MEDICAL | | | | | | CENTER | | + +-------+ + + + | EGFR | >60 | >60 mL/min | [facility] | | | - | | | A MEDICAL | | | [facility] | | | CENTER | | + +-------+ + + + | EGFR NON | >60 | >60 mL/min | [facility] | | | -TIA | | | A MEDICAL | | | [facility] | | | CENTER | | + +-------+ + + + + + | Specimen | + + | Blood - Blood | | (substance) | + + + + + | Narrative | Performed At | + + + | GFR is estimated using the MDRD equation recommended by the | [facility] | | National Kidney Disease Education Program. Estimated GFR | [facility] | | Interpretive Information: <60 mL/min/1.73 sq m | | | Chronic Kidney Disease <15 mL/min/1.73 sq m | | | Kidney Failure Estimated GFR greater than 60 mL/min/1.73 sq m is of | | | limited clinical value. The MDRD equation is not valid in the | | | following situations: - Patients under 18 years of age - Severe | | | malnutrition or obesity - Vegetarian diet - Rapidly changing kidney | | | function - Amputees, paraplegics, or other muscle-wasting diseses | | + + + + + + + + | Performing | Address | City/State/Zipcode | Phone Number | | Organization | | | | + + + + + | [facility] | And | [place] [address] | [phone] | | MEDICAL CENTER | Streets | | | + + + + + AST, PLASMA (07/17/2018 6:10 PM PST) + +-------+ + + + | Component | Value | Ref Range | Performed | Pathologist | | | | | At | Signature | + +-------+ + + + | AST(SGOT) | 14 | 10 - 41 U/L | [facility] | | | | | | A MEDICAL | | | | | | CENTER | | + +-------+ + + + + + | Specimen | + + | Blood - Blood | | (substance) | + + + + + + + | Performing | Address | City/State/Zipcode | Phone Number | | Organization | | | | + + + + + | [facility] | And | [place] [address] | [phone] | | [facility] | Streets | | | + + + + + UREA NITROGEN, PLASMA (07/17/2018 6:10 PM PST) + +-------+ + + + | Component | Value | Ref Range | Performed | Pathologist | | | | | At | Signature | + +-------+ + + + | BUN, PLASMA | 12 | 6 - 26 mg/dL | [facility] | | | (LAB) | | | A MEDICAL | | [...] + + + + | [facility] | And | [place] [address] | [phone] | | MEDICAL CENTER | Streets | | | + + + + + URIC ACID, PLASMA (07/17/2018 6:10 PM PST) + +-------+ + + + | Component | Value | Ref Range | Performed | Pathologist | | | | | At | Signature | + +-------+ + + + | URIC ACID, | 4.5 | 2.4 - 5.7 mg/dL | [facility] | | | PLASMA | | | A MEDICAL | | | (LAB) | | | CENTER | | + +-------+ + + + + + | Specimen | + + | Blood - Blood | | (substance) | + + + + + + + | Performing | Address | City/State/Zipcode | Phone Number | | Organization | | | | + + + + + | [facility] | [address] | [place] [address] | [phone] | | [facility] | Streets | | | + + + + + CAP GLU,POC (07/17/2018 2:06 PM PST) + +-------+ + + + | Component | Value | Ref Range | Performed | Pathologist | | | | | At | Signature | + +-------+ + + + | BLOOD | 106 | 70 - 105 mg/dL | [facility] | | | GLUCOSE, | | | OF CARE | | | POC | | | TESTING | | + +-------+ + + + + + | Specimen | + + | | + + + +---------+ + + | Performing | Address | City/State/Zipcode | Phone Number | | Organization | | | | + +---------+ + + | [facility] | | | | | TESTING | | | | + +---------+ + + CAP GLU,POC (07/17/2018 10:10 AM PST) + +-------+ + + + | Component | Value | Ref Range | Performed | Pathologist | | | | | At | Signature | + +-------+ + + + | BLOOD | 133 | 70 - 105 mg/dL | [facility] | | | GLUCOSE, | | | OF CARE | | | POC | | | TESTING | | + +-------+ + + + + + | Specimen | + + | | + + + +---------+ + + | Performing | Address | City/State/Zipcode | Phone Number | | Organization | | | | + +---------+ + + | [facility] | | | | | TESTING | | | | + +---------+ + + CAP GLU,POC (07/17/2018 4:03 AM PST) + +-------+ + + + | Component | Value | Ref Range | Performed | Pathologist | | | | | At | Signature | + +-------+ + + + | BLOOD | 93 | 70 - 105 mg/dL | [facility] | | | GLUCOSE, | | | OF CARE | | | POC | | | TESTING | | + +-------+ + + + + + | Specimen | + + | | + + + +---------+ + + | Performing | Address | City/State/Zipcode | Phone Number | | Organization | | | | + +---------+ + + | [facility] | | | | | TESTING | | | | + +---------+ + + CAP GLU,POC (07/17/2018 12:41 AM PST) + +-------+ + + + | Component | Value | Ref Range | Performed | Pathologist | | | | | At | Signature | + +-------+ + + + | BLOOD | 98 | 70 - 105 mg/dL | [facility] | | | GLUCOSE, | | | OF CARE | | | POC | | | TESTING | | + +-------+ + + + + + | Specimen | + + | | + + + +---------+ + + | Performing | Address | City/State/Zipcode | Phone Number | | Organization | | | | + +---------+ + + | [facility] | | | | | TESTING | | | | + +---------+ + + CAP CORALPOC (07/16/2018 8:04 PM PST) + +-------+ + + + | Component | Value | Ref Range | Performed | Pathologist | | | | | At | Signature | + +-------+ + + + | BLOOD | 85 | 70 - 105 mg/dL | [facility] | | | GLUCOSE, | | | OF CARE | | | POC | | | TESTING | | + +-------+ + + + + + | Specimen | + + | | + + + +---------+ + + | Performing | Address | City/State/Zipcode | Phone Number | | Organization | | | | + +---------+ + + | [facility] | | | | | TESTING | | | | + +---------+ + + CAP GLU,POC (07/16/2018 1:43 PM PST) + +-------+ + + + | Component | Value | Ref Range | Performed | Pathologist | | | | | At | Signature | + +-------+ + + + | BLOOD | 118 | 70 - 105 mg/dL | [facility] | | | GLUCOSE, | | | OF CARE | | | POC | | | TESTING | | + +-------+ + + + + + | Specimen | + + | Blood | + + + +---------+ + + | Performing | Address | City/State/Zipcode | Phone Number | | Organization | | | | + +---------+ + + | [facility] | | | | | TESTING | | | | + +---------+ + + CAP GLU,POC (07/16/2018 7:27 AM PST) + +-------+ + + + | Component | Value | Ref Range | Performed | Pathologist | | | | | At | Signature | + +-------+ + + + | BLOOD | 85 | 70 - 105 mg/dL | [facility] | | | GLUCOSE, | | | OF CARE | | | POC | | | TESTING | | + +-------+ + + + + + | Specimen | + + | Blood | + + + +---------+ + + | Performing | Address | City/State/Zipcode | Phone Number | | Organization | | | | + +---------+ + + | [facility] | | | | | TESTING | | | | + +---------+ + + PROTEIN, URINE (07/15/2018 10:00 PM PST) + +--------+ + + + | Component | Value | Ref Range | Performed | Pathologist | | | | | At | Signature | + +--------+ + + + | PROTEIN | 17 | mg/dL | [facility] | | | CONC URINE | | | A MEDICAL | | | | | | CENTER | | + +--------+ + + + | URINE | Random | | [facility] | | | INTERVAL | | | A MEDICAL | | | | | | CENTER | | + +--------+ + + + | URINE | Spot | | [facility] | | | VOLUME | | | A MEDICAL | | | | | | CENTER | | + +--------+ + + + | PROTEIN/CRE | 0.12 | <0.16 mg/mg | [facility] | | | ATININE | | | A MEDICAL | | | RATIO | | | CENTER | | + +--------+ + + + + + | Specimen | + + | Urine - Urine | | (substance) | + + + + + + + | Performing | Address | City/State/Zipcode | Phone Number | | Organization | | | | + + + + + | [facility] | And | [place] [address] | [phone] | | MEDICAL CENTER | Streets | | | + + + + + CREATININE, URINE (07/15/2018 10:00 PM PST) + +--------+ + + + | Component | Value | Ref Range | Performed | Pathologist | | | | | At | Signature | + +--------+ + + + | URINE | Random | | [facility] | | | INTERVAL | | | A MEDICAL | | | | | | CENTER | | + +--------+ + + + | URINE | Spot | | [facility] | | | VOLUME | | | A MEDICAL | | | | | | CENTER | | + +--------+ + + + | CREATININE | 139.1 | 20.0 - 320.0 | [facility] | | | CONC URINE | | mg/dL | A MEDICAL | | | | | | CENTER | | + +--------+ + + + + + | Specimen | + + | Urine - Urine | | (substance) | + + + + + + + | Performing | Address | City/State/Zipcode | Phone Number | | Organization | | | | + + + + + | [facility] | And | [place] [address] | [phone] | | MEDICAL CENTER | Streets | | | + + + + + ANTIBODY IDENTIFICATION (07/15/2018 9:15 PM PST) + + + + + + | Component | Value | Ref Range | Performed | Pathologist | | | | | At | Signature | + + + + + + | ANTIBODY 1 | Passive D Antibody, | | [facility] | | | | Patient Received [facility] | | BANK | | + + + + + + + + | Specimen | + + | Blood - Blood | | (substance) | + + + + + + + | Performing | Address | City/State/Zipcode | Phone Number | | Organization | | | | + + + + + | [facility] | and | [place] [address] | | | | Streets | | | + + + + + CBC AND AUTO DIFF (07/15/2018 9:15 PM PST) + + + + + + | Component | Value | Ref Range | Performed | Pathologist | | | | | At | Signature | + + + + + + | WHITE CELL | 12.72 (H) | 3.50 - 10.80 | [facility] | | | COUNT | | K/cu mm | A MEDICAL | | | | | | CENTER | | + + + + + + | RED CELL | 3.80 (L) | 4.00 - 5.20 | [facility] | | | COUNT | | M/cu mm | A MEDICAL | | | | | | CENTER | | + + + + + + | HEMOGLOBIN | 10.5 (L) | 12.0 - 16.0 | [facility] | | | | | g/dL | A MEDICAL | | | | | | CENTER | | + + + + + + | HEMATOCRIT | 31.5 (L) | 36.0 - 46.0 % | [facility] | | | | | | A MEDICAL | | | | | | CENTER | | + + + + + + | MCV | 82.9 | 80.0 - 96.0 fL | [facility] | | | | | | A MEDICAL | | | | | | CENTER | | + + + + + + | MCH | 27.6 (L) | 28.0 - 34.7 pg | [facility] | | | | | | A MEDICAL | | | | | | CENTER | | + + + + + + | MCHC | 33.3 | 33.0 - 35.5 | [facility] | | | | | g/dL | A MEDICAL | | | | | | CENTER | | + + + + + + | RDW | 14.2 | 11.5 - 14.5 % | [facility] | | | | | | A MEDICAL | | | | | | CENTER | | + + + + + + | PLATELET | 246 | 150 - 400 K/cu | [facility] | | | COUNT | | mm | A MEDICAL | | | | | | CENTER | | + + + + + + | MPV | 12.3 (H) | 7.5 - 11.2 fL | [facility] | | | | | | A MEDICAL | | | | | | CENTER | | + + + + + + | NRBC% | 0.0 | 0.0 - 0.3 % | [facility] | | | | | | A MEDICAL | | | | | | CENTER | | + + + + + + | NRBC# | 0.00 | 0.00 - 0.02 | [facility] | | | | | K/cu mm | A MEDICAL | | | | | | CENTER | | + + + + + + | NEUTROPHIL | 73.0 (H) | 50.0 - 70.0 % | [facility] | | | % | | | A MEDICAL | | | | | | CENTER | | + + + + + + | LYMPHOCYTE | 14.5 (L) | 18.0 - 42.0 % | [facility] | | | % | | | A MEDICAL | | | | | | CENTER | | + + + + + + | MONOCYTE % | 9.4 (H) | 3.5 - 9.0 % | [facility] | | | | | | A MEDICAL | | | | | | CENTER | | + + + + + + | EOS % | 2.3 | 1.0 - 3.0 % | [facility] | | | | | | A MEDICAL | | | | | | CENTER | | + + + + + + | BASO % | 0.3 | 0.0 - 2.0 % | [facility] | | | | | | A MEDICAL | | | | | | CENTER | | + + + + + + | IG% | 0.5 | 0.0 - 1.0 % | [facility] | | | | | | A MEDICAL | | | | | | CENTER | | + + + + + + | NEUTROPHIL | 9.28 (H) | 1.80 - 7.70 | [facility] | | | # | | K/cu mm | A MEDICAL | | | | | | CENTER | | + + + + + + | LYMPHOCYTE | 1.85 | 1.00 - 4.80 | [facility] | | | # | | K/cu mm | A MEDICAL | | | | | | CENTER | | + + + + + + | MONOCYTE # | 1.20 (H) | 0.10 - 0.90 | [facility] | | | | | K/cu mm | A MEDICAL | | | | | | CENTER | | + + + + + + | EOS # | 0.29 | 0.00 - 0.50 | [facility] | | | | | K/cu mm | A MEDICAL | | | | | | CENTER | | + + + + + + | BASO # | 0.04 | 0.00 - 0.10 | [facility] | | | | | K/cu mm | A MEDICAL | | | | | | CENTER | | + + + + + + | IG# | 0.06 | 0.00 - 0.10 | [facility] | | | | | K/cu mm | A MEDICAL | | | | [...] + + + + | [facility] | And | [place] [address] | [phone] | | [facility] | Streets | | | + + + + + ANTIBODY SCREEN (07/15/2018 9:15 PM PST) + + + + + + | Component | Value | Ref Range | Performed | Pathologist | | | | | At | Signature | + + + + + + | Antibody | Positive | | [facility] | | | Screen | | | BANK | | + + + + + + + + | Specimen | + + | Blood - Blood | | (substance) | + + + + + + + | Performing | Address | City/State/Zipcode | Phone Number | | Organization | | | | + + + + + | [facility] | and | [place] [address] | | | | Streets | | | + + + + + ABO & RH TYPE (07/15/2018 9:15 PM PST) + + + + + + | Component | Value | Ref Range | Performed | Pathologist | | | | | At | Signature | + + + + + + | ABO Group | A | | [facility] | | | | | | BANK | | + + + + + + | Rh Type | Negative | | [facility] | | | | | | BANK | | + + + + + + + + | Specimen | + + | Blood - Blood | | (substance) | + + + + + + + | Performing | Address | City/State/Zipcode | Phone Number | | Organization | | | | + + + + + | [facility] | and | [place] [address] | | | | Streets | | | + + + + + COMPLETE METABOLIC SET (NA,K,CL,CO2,BUN,CREAT,GLUC,CA,AST,ALT,BILI TOTAL,ALK PHOS,ALB,PROT TOTAL) (07/15/2018 9:15 PM PST) + +---------+ + + + | Component | Value | Ref Range | Performed | Pathologist | | | | | At | Signature | + +---------+ + + + | GLUCOSE, | 81 | 70 - 105 mg/dL | [facility] | | | PLASMA | | | A MEDICAL | | | (LAB) | | | CENTER | | + +---------+ + + + | BUN, PLASMA | 12 | 6 - 26 mg/dL | [facility] | | | (LAB) | | | A MEDICAL | | | | | | CENTER | | + +---------+ + + + | CREATININE, | 0.5 (L) | 0.6 - 1.1 mg/dL | [facility] | | | PLASMA | | | A MEDICAL | | | | | | CENTER | | + +---------+ + + + | SODIUM, | 135 (L) | 137 - 146 | [facility] | | | PLASMA | | mmol/L | A MEDICAL | | | (LAB) | | | CENTER | | + +---------+ + + + | POTASSIUM, | 3.9 | 3.4 - 5.3 | [facility] | | | PLASMA | | mmol/L | A MEDICAL | | | (LAB) | | | CENTER | | + +---------+ + + + | CHLORIDE, | 99 | 96 - 106 mmol/L | [facility] | | | PLASMA | | | A MEDICAL | | | (LAB) | | | CENTER | | + +---------+ + + + | TOTAL CO2, | 22 | 18 - 30 mmol/L | [facility] | | | PLASMA | | | A MEDICAL | | | (LAB) | | | CENTER | | + +---------+ + + + | CALCIUM, | 9.0 | 8.5 - 10.8 | [facility] | | | PLASMA | | mg/dL | A MEDICAL | | | (LAB) | | | CENTER | | + +---------+ + + + | BILIRUBIN | 0.2 | 0.2 - 1.2 mg/dL | [facility] | | | TOTAL | | | A MEDICAL | | | | | | CENTER | | + +---------+ + + + | TOTAL | 6.9 | 5.8 - 8.5 g/dL | [facility] | | | PROTEIN, | | | A MEDICAL | | | PLASMA | | | CENTER | | | (LAB) | | | | | + +---------+ + + + | ALBUMIN, | 3.3 (L) | 3.5 - 5.0 g/dL | [facility] | | | PLASMA | | | A MEDICAL | | | (LAB) | | | CENTER | | + +---------+ + + + | ALK PHOS | 161 | 32 - 180 U/L | [facility] | | | | | | A MEDICAL | | | | | | CENTER | | + +---------+ + + + | AST(SGOT) | 12 | 10 - 41 U/L | [facility] | | | | | | A MEDICAL | | | | | | CENTER | | + +---------+ + + + | ALT (SGPT) | 12 | 7 - 51 U/L | [facility] | | | | | | A MEDICAL | | | | | | CENTER | | + +---------+ + + + | EGFR | >60 | >60 mL/min | [facility] | | | - | | | A MEDICAL | | | [facility] | | | CENTER | | + +---------+ + + + | EGFR NON | >60 | >60 mL/min | [facility] | | | -TIA | | | A MEDICAL | | | [facility] | | | CENTER | | + +---------+ + + + | ANION GAP | 14 | 7 - 16 mmol/L | [facility] | | | | | | A MEDICAL | | | | | | CENTER | | + +---------+ + + + | BUN/CREATIN | 24 | 6 - 20 | [facility] | | | INE RATIO | | | A MEDICAL | | | | | | CENTER | | + +---------+ + + + + + | Specimen | + + | Blood - Blood | | (substance) | + + + + + | Narrative | Performed At | + + + | GFR is estimated using the MDRD equation recommended by the | [facility] | | National Kidney Disease Education Program. Estimated GFR | [facility] | | Interpretive Information: <60 mL/min/1.73 sq m | | | Chronic Kidney Disease <15 mL/min/1.73 sq m | | | Kidney Failure Estimated GFR greater than 60 mL/min/1.73 sq m is of | | | limited clinical value. The MDRD equation is not valid in the | | | following situations: - Patients under 18 years of age - Severe | | | malnutrition or obesity - Vegetarian diet - Rapidly changing kidney | | | function - Amputees, paraplegics, or other muscle-wasting diseses | | + + + + + + + + | Performing | Address | City/State/Zipcode | Phone Number | | Organization | | | | + + + + + | [facility] | | [place] [address] | [phone] | | [facility] | Streets | | | + + + + + documented in this encounter Visit Diagnoses + + | Diagnosis | + + | High-risk in third trimester - Primary | + + | Insulin controlled gestational diabetes mellitus (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 trimester | + + | BMI 45.0-49.9, adult (HCC) Body Mass Index 45.0-49.9, adult | + + | Velamentous insertion of umbilical cord in third trimester Other umbilical cord | | complications during labor and delivery, unspecified as to episode of care | + + documented in this encounter Administered Medications + +--------+ +------+------+------+ | Medication Order | MAR | Action | Dose | Rate | Site | | | Action | Date | | | | + +--------+ +------+------+------+ | bupivacaine-fentaNYL in NS (PF) | Given | 07/17/19 | | | | | epidural infusion 1 dose, | | 19 6:50 | | | | | Starting Fri07/17/18 at 1819, | | PM PST | | | | | Until Fri07/17/18 at 1850 | | | | | | + +--------+ +------+------+------+ + +---+ | | | + +---+ | dextrose 50 % in water IV 25 mL | | | 25 mL, intravenous, NEEDED, | | | Starting 07/17/18 at 1908, | | | Until Fri07/20/18 at 1815, CBG | | | less than 70 mg/dL per | | | hypoglycemia protocol | | + +---+ | | | + +---+ + +-------+ +--------+---+---+ | docusate sodium (COLACE) | Given | 07/20/19 | 100 mg | | | | capsule 100 mg 100 mg, oral, | | 19 7:50 | | | | | TWICE DAILY, First dose on Sat | | AM PST | | | | | 07/18/18 at 0900, Until | | | | | | | Discontinued | | | | | | + +-------+ +--------+---+---+ +-------+ +--------+---+---+ | Given | 07/19/19 | 100 mg | | | | | 19 8:07 | | | | | | PM PST | | | | +-------+ +--------+---+---+ | Given | 07/19/19 | 100 mg | | | | | 19 8:40 | | | | | | AM PST | | | | +-------+ +--------+---+---+ + +---+ | | | + +---+ | Doxylamine Succinate (Sleep) | | | (MEDI-SLEEP) tab 25 mg 25 mg, | | | oral, AT BEDTIME NEEDED, | | | Starting Fri07/15/18 at 1959, | | | Until Fri07/20/18 at 1815, | | | insomnia | | + +---+ | | | + +---+ + +-------+ +-------+---+---------+ | enoxaparin (LOVENOX) injection | Given | 07/19/19 | 40 mg | | Abdomen | | 40 mg 40 mg, subcutaneous, EVERY | | 19 8:07 | | | | | EVENING, First dose on Sat | | PM PST | | | | | 07/18/18 at 2100, Until | | | | | | | Discontinued | | | | | | + +-------+ +-------+---+---------+ +-------+ +-------+---+---------+ | Given | 07/18/19 | 40 mg | | Abdomen | | | 19 8:45 | | | | | | PM PST | | | | +-------+ +-------+---+---------+ +---+---+ | | | +---+---+ + +-------+ + +---+---+ | ferrous sulfate delayed release | Given | 07/18/19 | 65 mg | | | | tablet 65 mg elemental 65 mg | | 19 8:52 | elementa | | | | elemental (325 mg total salt), | | AM PST | l | | | | oral, DAILY, First dose on Sat | | | | | | | 07/18/18 at 0900, Until | | | | | | | Discontinued | | | | | | + +-------+ + +---+---+ +---+---+ | | | +---+---+ + +-------+ + +---+---+ | ferrous sulfate delayed release | Given | 07/20/19 | 65 mg | | | | tablet 65 mg elemental 65 mg | | 19 7:50 | elementa | | | | elemental (325 mg total salt), | | AM PST | l | | | | oral, TWICE DAILY, First dose | | | | | | | (after last modification) on Sat | | | | | | | 07/18/18 at 2100, Until | | | | | | | Discontinued | | | | | | + +-------+ + +---+---+ +-------+ + +---+---+ | Given | 07/19/19 | 65 mg | | | | | 19 8:07 | elementa | | | | | PM PST | l | | | +-------+ + +---+---+ | Given | 07/19/19 | 65 mg | | | | | 19 8:40 | elementa | | | | | AM PST | l | | | +-------+ + +---+---+ + +---+ | | | + +---+ | glucagon (GLUCAGEN) injection 1 | | | mg 1 mg, intramuscular, | | | NEEDED, Starting Fri07/17/18 at | | | 1908, Until Fri07/20/18 at 1815, | | | CBG less than 70 mg/dL | | + +---+ | | | + +---+ + +-------+ + +---+---+ | HYDROcodone-acetaminophen | Given | 07/20/19 | 1 tablet | | | | (NORCO) 5-325 mg tablet 1-2 | | 19 4:09 | | | | | tablet 1-2 tablet, oral, EVERY 6 | | AM PST | | | | | HOURS NEEDED, Starting Sat | | | | | | | 07/18/18 at 0043, Until Fri07/20/18 | | | | | | | at 1815, pain | | | | | | + +-------+ + +---+---+ +-------+ + +---+---+ | Given | 07/19/19 | 1 tablet | | | | | 19 8:07 | | | | | | PM PST | | | | +-------+ + +---+---+ | Given | 07/19/19 | 1 tablet | | | | | 19 12:20 | | | | | | PM PST | | | | +-------+ + +---+---+ +---+---+ | | | +---+---+ + +-------+ +--------+---+---+ | ibuprofen (MOTRIN) tablet 800 | Given | 07/20/19 | 800 mg | | | | mg 800 mg, oral, EVERY 8 HOURS | | 19 7:50 | | | | | NEEDED, Starting 07/18/18 at | | AM PST | | | | | 0043, Until 07/20/18 at 1815, | | | | | | | multimodal pain control | | | | | | + +-------+ +--------+---+---+ +-------+ +--------+---+---+ | Given | 07/19/19 | 800 mg | | | | | 19 2:43 | | | | | | PM PST | | | | +-------+ +--------+---+---+ | Given | 07/19/19 | 800 mg | | | | | 19 6:14 | | | | | | AM PST | | | | +-------+ +--------+---+---+ +---+---+ | | | +---+---+ + +-------+ +---------+---+--------+ | insulin aspart U-100 (NOVOLOG | Given | 07/18/19 | 1 Units | | Right | | FLEXPEN) injection 1-15 Units | | 19 6:43 | | | Arm | | 1-15 Units, subcutaneous, BEFORE | | AM PST | | | | | MEALS AND BEDTIME, First dose on | | | | | | | 07/17/18 at 2100, Until | | | | | | | Discontinued | | | | | | + +-------+ +---------+---+--------+ +---+---+ | | | +---+---+ + +-------+ +---------+---+ + | insulin NPH (HUMULIN N FLEXPEN) | Given | 07/16/19 | 3 Units | | Left Arm | | injection 3 Units 3 Units, | | 19 12:39 | | | | | subcutaneous, ONCE, 1 dose, [place] | | PM PST | | | | | 07/16/18 at 1200 | | | | | | + +-------+ +---------+---+ + +---+---+ | | | +---+---+ + +-------+ + +---+ + | insulin NPH (HUMULIN N) | Given | 07/15/19 | 12 Units | | Left Arm | | injection 12 Units 12 Units, | | 19 9:08 | | | | | subcutaneous, AT BEDTIME, First | | PM PST | | | | | dose on Fri07/15/18 at 2100, | | | | | | | Until Discontinued | | | | | | + +-------+ + +---+ + + +---+ | | | + +---+ | magnesium hydroxide (MILK OF | | | MAGNESIA) suspension 30 mL 30 | | | mL, oral, DAILY NEEDED, | | | Starting 07/18/18 at 0043, | | | Until 07/20/18 at 1815, For | | | constipation unresponsive to | | | docusate (COLACE), senna-docusate | | | (SENAKOT-S) and magnesium | | | hydroxide (MOM) for 3 days | | + +---+ | | | + +---+ + +-------+ +--------+---+---+ | misoprostol (CYTOTEC) tablet 25 | Given | 07/16/19 | 25 mcg | | | | mcg 25 mcg, buccal, EVERY 4 | | 19 1:08 | | | | | HOURS NEEDED, 5 doses, | | PM PST | | | | | Starting 07/15/18 at 1959, | | | | | | | Until 07/18/18 at 0044, | | | | | | | cervical ripening/induction of | | | | | | | labor | | | | | | + +-------+ +--------+---+---+ +-------+ +--------+---+---+ | Given | 07/16/19 | 25 mcg | | | | | 19 8:50 | | | | | | AM PST | | | | +-------+ +--------+---+---+ | Given | 07/16/19 | 25 mcg | | | | | 19 2:47 | | | | | | AM PST | | | | +-------+ +--------+---+---+ +---+---+ | | | +---+---+ + +-------+ + +---+---+ | Multivits,Ca,Pxnmnnnb-Uxwo-MQ | Given | 07/20/19 | 1 tablet | | | | (THERA M PLUS) tablet 1 tablet 1 | | 19 7:50 | | | | | tablet, oral, DAILY, First dose | | AM PST | | | | | on 07/18/18 at 0900, Until | | | | | | | Discontinued | | | | | | + +-------+ + +---+---+ +-------+ + +---+---+ | Given | 07/19/19 | 1 tablet | | | | | 19 8:40 | | | | | | AM PST | | | | +-------+ + +---+---+ | Given | 07/18/19 | 1 tablet | | | | | 19 8:52 | | | | | | AM PST | | | | +-------+ + +---+---+ +---+---+ | | | +---+---+ + +-------+ +-------+---+---+ | NaCl flush 2-10 mL 2-10 mL, | Given | 07/16/19 | 10 mL | | | | intravenous, TWICE DAILY, First | | 19 10:00 | | | | | dose on Fri07/15/18 at 2100, | | PM PST | | | | | Until Discontinued | | | | | | + +-------+ +-------+---+---+ +-------+ +-------+---+---+ | Given | 07/15/19 | 10 mL | | | | | 19 9:15 | | | | | | PM PST | | | | +-------+ +-------+---+---+ +---+---+ | | | +---+---+ + +-------+ +-------+---+---+ | NaCl flush 2-10 mL 2-10 mL, | Given | 07/16/19 | 10 mL | | | | intravenous, NEEDED, Starting | | 19 7:08 | | | | | 07/15/18 at 1959, Until Sat | | PM PST | | | | | 07/18/18 at 0044, line patency per | | | | | | | policy | | | | | | + +-------+ +-------+---+---+ +---+---+ | | | +---+---+ + +-------+ +-------+---+---+ | NaCl flush 2-10 mL 2-10 mL, | Given | 07/18/19 | 10 mL | | | | intravenous, TWICE DAILY, First | | 19 8:45 | | | | | dose on 07/18/18 at 0900, Until | | PM PST | | | | | Discontinued | | | | | | + +-------+ +-------+---+---+ +---+---+ | | | +---+---+ + +-------+ +-------+---+---+ | nalbuphine (NUBAIN) injection | Given | 07/17/19 | 10 mg | | | | 5-10 mg 5-10 mg, intravenous, | | 19 4:35 | | | | | EVERY 1 HOUR NEEDED, 3 doses, | | PM PST | | | | | Starting 07/15/18 at 1959, | | | | | | | Until 07/18/18 at 0044, pain | | | | | | + +-------+ +-------+---+---+ +-------+ +-------+---+---+ | Given | 07/16/19 | 10 mg | | | | | 19 7:06 | | | | | | PM PST | | | | +-------+ +-------+---+---+ +---+---+ | | | +---+---+ + + + + +---------+---+ | oxytocin (PITOCIN) 30 Units/500 | Rate/Dos | 07/17/19 | 4 | 4 mL/hr | | | mL in NS IV infusion 0.5-20 | e Change | 19 9:45 | stephon-un | | | | stephon-units/min (0.5-20 mL/hr), | | PM PST | its/min | | | | intravenous, CONTINUOUS, Starting | | | | | | | 07/15/18 at 2000, Until Sat | | | | | | | 07/18/18 at 0044 | | | | | | + + + + +---------+---+ + + + +---------+---+ | Rate/Dose Change | 07/17/19 | 3 | 3 mL/hr | | | | 19 9:15 | stephon-un | | | | | PM PST | its/min | | | + + + +---------+---+ | Restarted | 07/17/19 | 2 | 2 mL/hr | | | | 19 8:10 | stephon-un | | | | | PM PST | its/min | | | + + + +---------+---+ +---+---+ | | | +---+---+ + +---------+ +-------+-------+---+ | sodium chloride 0.9 % (NS) IV | New Bag | 07/17/19 | 125 | 125 | | | infusion 125 mL/hr, intravenous, | | 19 6:48 | mL/hr | mL/hr | | | CONTINUOUS, Starting 07/15/18 | | PM PST | | | | | at 2000, Until 07/18/18 at | | | | | | | 0044 | | | | | | + +---------+ +-------+-------+---+ + + +--------+-------+---+ | Rate/Dose Change | 07/17/19 | 1,000 | 1000 | | | | 19 6:01 | mL/hr | mL/hr | | | | PM PST | | | | + + +--------+-------+---+ | New Bag | 07/17/19 | 125 | 125 | | | | 19 3:43 | mL/hr | mL/hr | | | | PM PST | | | | + + +--------+-------+---+ +---+---+ | | | +---+---+ + +---------+ +-------+-------+---+ | sodium chloride 0.9 % (NS) IV | New Bag | 07/18/19 | 125 | 125 | | | infusion 125 mL/hr, intravenous, | | 19 8:53 | mL/hr | mL/hr | | | NEEDED CONTINUOUS, Starting | | AM PST | | | | | 07/18/18 at 0043, Until Mon | | | | | | | 07/20/18 at 1815, volume | | | | | | | resuscitation for post | | | | | | | hemorrhage | | | | | | + +---------+ +-------+-------+---+ +---+---+ | | | +---+---+ + +-------+ +-------+---+---+ | sodium citrate-citric acid | Given | 07/17/19 | 30 mL | | | | (BICITRA) 500-334 mg/5 mL liquid | | 19 10:05 | | | | | 1 dose, Starting 07/17/18 at | | PM PST | | | | | 2202, Until 07/17/18 at 2205 | | | | | | + +-------+ +-------+---+---+ + +---+ | | | + +---+ | sorbitol liquid 30 mL 30 mL, | | | oral, DAILY NEEDED, Starting | | | 07/18/18 at 0043, Until Mon | | | 07/20/18 at 1815, For constipation | | | unresponsive to docusate | | | (COLACE), senna-docusate | | | (SENOKOT-S) and sorbitol for 3 | | | days | | + +---+ | | | + +---+ documented in this encounter
--- OUTSIDE RECORDS SUMMARY | ~2019-05-12 | XMS | Encounter Summary ---
Demographics + + + | Address | [address] | | | [place] [address] | + + + | Home Phone | | + + + | Preferred Language | Unknown | + + + | Marital Status | Single | + + + | Sikh Affiliation | NRP | + + + | Race | White | + + + | Ethnic Group | Not or | + + + Author + + + | Author | [facility] | + + + | Organization | [facility] | + + + | Address | Unknown | + + + | Phone | Unavailable | + + + Support + + + + + | Name | Relationship | Address | Phone | + + + + + | Anderson Rose | ECON | [address] | | | [place] | | [place] [address] | | + + + + + | Gracie Turcios | ECON | [place] | | + + + + + Care Team Providers + +------+ + | Care Passenger Flagman Name | Role | Phone | + +------+ + | Anisha Rivera | PCP | | + +------+ + Reason for Visit + + + | Reason | Comments | + + + | Medication | Insulin, new to patient | + + + Encounter Details +--------+ + + + + | Date | Type | Department | Care Team | Description | +--------+ + + + + | 05/29/ | Telephone | [facility] | Ti, | Medication (Insulin, | | 2017 | | [facility] [address] | MD [address] | new to patient) | | | | [address] | | | | | [address] [place], [place] | [place], [place] | | | | | [address] | [address] | | | | | [phone] | [phone] | | | | | | | [...] + | Diagnosis | + + | Velamentous insertion of umbilical cord in third trimester Other umbilical cord | | complications during labor and delivery, unspecified as to episode of care | + + | High-risk in third trimester | + + documented in this encounter"
--- OUTSIDE RECORDS SUMMARY | ~2019-05-12 | XMS | Encounter Summary ---
Demographics + + + | Address | [address] | | | [place] [address] | + + + | Home Phone | | + + + | Preferred Language | Unknown | + + + | Marital Status | Single | + + + | Sabianism Affiliation | NRP | + + + | Race | White | + + + | Ethnic Group | Not or | + + + Author + + + | Author | [facility] | + + + | Organization | [facility] | + + + | Address | Unknown | + + + | Phone | Unavailable | + + + Support + + + + + | Name | Relationship | Address | Phone | + + + + + | Anderson Rose | ECON | [address] | | | [place] | | [place] [address] | | + + + + + | Gracie Turcios | ECON | [place] | | + + + + + Care Team Providers + +------+ + | Care Career Development Coordinator/Teacher Name | Role | Phone | + +------+ + | Anisha Rivera | PCP | | + +------+ + Reason for Referral CC to [facility] (Routine) +--------+--------+ + + + + | Status | Reason | Specialty | Diagnoses / | Referred By | Referred To | | | | | Procedures | Contact | Contact | +--------+--------+ + + + + | Closed | | | Diagnoses | [place], | Pnc | | | | | Abnormal | Mandjulio cesar Loza, | Perinatology | | | | | | CNM [address] | [address] | | | | | ultrasound | St | Lenny Rhodes | | | | | Procedures | [address] | Giselle Bustamante | | | | | CONSULT TO | [place] | Physician's | | | | | PERINATOLOGY | [address] | Pav[facility] | | | | | CT NEW | Phone: | [place], [place] | | | | | PATIENT | [phone] | [address] | | | | | [address] | Fax: | Phone: | | | | | EST PATIENT | [phone] | [phone] | | | | | LEVEL V | | Fax: | | | | | | | [phone] | +--------+--------+ + + + + Reason for Visit + + + | Reason | Comments | + + + | | | + + + Encounter Details +--------+ + + + + | Date | Type | Department | Care Team | Description | +--------+ + + + + | 03/05/ | | [place] | Kapil Rutherford, | | | 2018 | | [facility] [address] | CNM [address] | | | | | [address] | [address] | | | | | [address] [place], [place] | [place], [place] | | | | | [address] | [address] | | | | | [phone] | [phone] | | | | | | | [...] + + + | Blood Pressure | 110/68 | 03/05/2018 2:52 PM | | | | | PDT [...] + + + + | Weight | 113.7 kg (250 lb 9.6 | 03/05/2018 2:52 PM | | | | oz) | PDT | | + + + + + | Height | - | - | | + + + + + | Body Mass Index | 45.82 | 02/11/2018 8:32 AM | | | | | PDT | | + + + + + documented in this encounter Patient Instructions Patient Instructions Mary Kruse MA - 03/05/2018 3:00 PM PDTPrenatal Visit - Week 20 You ve arrived at the senior living point in your . You re probably feeling your ba by move. Your body is changing, and will change even more dramatically in the weeks to come . Please read chapters 6 and 22 in your book. Premature Labor Your baby still needs to live inside you. S/he is much too young to be able to live outsid e you. We want to raise the issue of labor with you. 12% of women deliver their ba bies prematurely (before 37 weeks). These babies have a higher chance of health problems in their infancy, and some may not survive. Premature labor is difficult to diagnose accurate ly and difficult to treat. If you suspect you might be in premature labor, call us. Here are some signs and symptoms that are sometimes seen in premature labor (and, unfortuna tely, these can all occur in a healthy, normal ): ? Painful, uterine contractions ? A bloody vaginal discharge ? A watery vaginal discharge ? Lower abdominal pain ? Fever, chills, muscle aches Nutrition Today s Nutritional Pascale: Let s get serious about good nutrition. You ll be glad y ou did! We re keeping it simple .remember? Three high-quality meals and three high-elaine lity snacks. Foods like chips, sodas, and pastries should be only a small part of a h ealthy diet. Surround yourself with good food choices. Bring on the hard-boiled eggs. Lisa ng on the zucchini and carrot sticks (dip them in some hummus). Bring on the string cheese sticks. Have a glass of milk. Have a grilled cheese sandwich (on a whole-grain bread!). Dental Care That beautiful smile also needs attention during your so it s important to keep up with your regular teeth cleanings. Bleeding gums are a common problem for wome n and keeping your teeth clean and flossed regularly can help keep your gums healthy. Don t put off seeing your dentist if you have tooth pain or need dental work done to prevent an y kind of infection. You can safely get treatment in including the use of local a nesthetic (numbing medicine), antibiotics and x-rays if they are necessary for treatment. Travel Travel within the [place] during a healthy is OK .even flying in commercial jets. If you are having problems with your and need to travel, call us first. If you c an, don t plan to travel in the last month of . can increase the risk of blood clots forming in your legs. Don t sit for more than 2 hours without getting up and moving your legs. Keep yourself well-hydrated! And because of that, pee frequently. Don t hold your urine . If you have to go .go! Travel outside of the country is not advised for a variety of reasons. If you must travel outside the country, read this first from the Centers for Disease Control (CDC): http://wwwnc.cdc.gov/travel/yellowbook/2014/ffeimly-9-zmztwqyy-esvepywpa-lcmz-onrjjohq-need s/-travelers Or do a Google search for: CDC travel yellow book chapter 8 Screening for Gestational Diabetes is a diabetogenic event. What does that mean? It means that the changes in your body that promote also increase your body s resistance to insulin. Insulin is a hormone that moves your blood sugar into the cells, where it provides energy for that cell . Something about makes that harder to do. That raises your blood sugar levels. If the blood sugar gets too high we call it Diabetes. has its own form of diabet es, which we call Gestational Diabetes. About 10% of women will have blood sugars that are too high. We want to identify these women as soon as possible. 80% of the time it s possible to control Gestational Diabetes with some tweaks to your diet. However, some women actually will need some medication, like insulin. Between 24 and 28 weeks we do a glucose screening test on ALL women. We ll talk about this at your next visit. Weeks 18 to 22 of Your : Care Instructions Your Care Instructions Your baby is continuing to develop quickly. At this stage, babies can now suck their thumbs , fuel dock attendant firmly with their hands, and open and close their eyelids. Sometime between 18 and 22 weeks, you will start to feel your baby move. At first, these sm all movements feel like fluttering or "butterflies." Some women say that they feel lik e gas bubbles. As the baby grows, these movements will become stronger. You may also notice that your baby kicks and hiccups. During this time, you may find that your nausea and fatigue are gone. Overall, you may feel better and have more energy than you did in your first trimester. But you may also have new discomforts now, such as sleep problems or leg cramps. This care sheet can help you ease th nettie discomforts. Follow-up care is a emerson part of your treatment and safety. Be sure to make and go to all ap pointments, and call your doctor if you are having problems. It's also a good idea to know y our test results and keep a list of the medicines you take. How can you care for yourself at home? Ease sleep problems Avoid caffeine in drinks or chocolate late in the day. Get some exercise every day. Take a warm shower or bath before bed. Have a light snack or glass of milk at bedtime. Do relaxation exercises in bed to calm your mind and body. Support your legs and back with extra pillows. Try a pillow between your legs if you sle ep on your side. Do not use sleeping pills or alcohol. They could harm your baby. Ease leg cramps Do not massage your calf during the cramp. Sit on a firm bed or chair. Straighten your leg, and bend your foot (flex your ankle) sl owly upward, toward your knee. Bend your toes up and down. Stand on a cool, flat surface. Stretch your toes upward, and take small steps walking on your heels. Use a heating pad or hot water bottle to help with muscle ache. Prevent leg cramps Be sure to get enough calcium. If you are worried that you are not getting enough, talk to your doctor. Exercise every day, and stretch your legs before bed. Take a warm bath before bed, and try leg warmers at night. Where can you learn more? To learn more about "Weeks 18 to 22 of Your : Care Instructions", log into your My Chart account at [email or web address]. You can enter [id number] in the "Health Library" [facility] box. Not on [employer]? Review the MyChart section of your After Visit Summary for directions on jean-claude w to sign up. Current as of: May 06, 2017 Content Version: 11.7 3014-0175 [employer]. Care instructions adapted under license by [facility] [employer]. If you have questions about a medical condition or this instr uction, always ask your healthcare professional. [employer] disclaims any frederic anty or liability for your use of this information. documented in this encounter Progress Notes Kapil Rutherford CNM - 03/05/2018 3:00 PM PDTS: @ 20.1 who presents for routine ob visit. She has not been checking her blood sugars. She states she just can't remember. She h as tried setting an alarm but that does not work. She last ate today about 4 hours ago. She asks for a letter change in her work restriction to not work more than 6 days in a row. She was working 60+ hours a week and last visit we had reduced her work hours to 40 but she states now they are making her work 7 days a week. She is sticking to 40 hours or less but would like to have at least 1 day off a week. Saturdays she works 2 hours so she would like to keep that day. O: See flow sheet Abd; Gravid, soft, not tender Blood sugar: She has tested 3 times. Fasting 90, 1hr PP 80 & 105 Random blood sugar today: 83 A/P GDM: Reviewed important of testing. Strategies to help her remember discussed. Plan to have her come back in 1 week for review Anatomy scan showed possible small chin, discussed with Elizabet. Recommendation is to go t o [facility] to complete anatomy and to evaluate chin. Pt accepts referral. She was given number t o pre-register at [facility]. F/U 1 week Mary Javier MA - 03/05/2018 3:00 PM PDTPt has no questions or concerns. Mary Vieyra MA documented in this e ncounter Plan of Treatment Not on filedocumented as of this encounter Procedures + +--------+ + + + | Procedure Name | Priori | Date/Time | Associated Diagnosis | Comments | | | ty | | | | + +--------+ + + + | CAP GLU,POC | Routin | 03/05/2018 | | Results for this | | | e | 3:41 PM | | procedure are in the | | | | PDT | | results section. | + +--------+ + + + documented in this encounter Results CAP GLU,POC (03/05/2018 3:41 PM PDT) + + + + + + | Component | Value | Ref Range | Performed | Pathologist | | | | | At | Signature | + + + + + + | BLOOD | 77Comment: Patient | 70 - 105 mg/dL | [facility] | | | GLUCOSE, | discharged | | OF CARE | | | POC | | | TESTING | | + + + + + + + + | Specimen | + + | | + + + +---------+ + + | Performing | Address | City/State/Zipcode | Phone Number | | Organization | | | | + +---------+ + + | [facility] | | | | | TESTING | | | | + +---------+ + + documented in this encounter Visit Diagnoses + + | Diagnosis | + + | Abnormal ultrasound - Primary Abnormal findings on screening | + + | High-risk in second trimester | + + | Diet controlled gestational diabetes mellitus (GDM) in second trimester | + + documented in this encounter
--- OUTSIDE RECORDS SUMMARY | ~2019-05-12 | XMS | Encounter Summary ---
Demographics + + + | Address | [address] | | | [place] [address] | + + + | Home Phone | | + + + | Preferred Language | Unknown | + + + | Marital Status | Single | + + + | Buddhist Affiliation | NRP | + + + | Race | White | + + + | Ethnic Group | Not or | + + + Author + + + | Author | [facility] | + + + | Organization | [facility] | + + + | Address | Unknown | + + + | Phone | Unavailable | + + + Support + + + + + | Name | Relationship | Address | Phone | + + + + + | Anderson Rose | ECON | [address] | | | [place] | | [place] [address] | | + + + + + | Gracie Turcios | ECON | [place] | | + + + + + Care Team Providers + +------+ + | Care Encapsulator Name | Role | Phone | + +------+ + | Anisha Rivera | PCP | | + +------+ + Reason for Visit + + + | Reason | Comments | + + + | test | Patient started "spotting" a week ago and has done 2 | | | tests that were negative. Patient and significant other are | | | requesting a blood test to see if they are . | + + + Encounter Details +--------+ + + + + | Date | Type | Department | Care Team | Description | +--------+ + + + + | 05/08/ | Emergency | Emergency | | | | 2015 | | Department at [facility] | | | | | | [facility] [address] | | | | | | [place], | | | | | | [place] [address] | | | | | | [phone] | | | +--------+ + + + + Social History + +-------+ +--------+------+ | Tobacco Use | Types | Packs/Day | Years | Date | | | | | Used | | + +-------+ +--------+------+ | Never Smoker | | | | | + +-------+ +--------+------+ + + +---------+ + | Alcohol Use [...] + + + | Blood Pressure | 136/84 | 05/08/2016 10:05 PM | | | | | PST | | + + + + + | Pulse | 77 | 05/08/2016 10:05 PM | | | | | PST | | + + + + + | Temperature | 36.8 C (98.2 F) | 05/08/2016 10:05 PM | | | | | PST | | + + + + + | Respiratory Rate | 16 | 05/08/2016 10:05 PM | | | | | PST | | + + + + + | Oxygen Saturation | 97% | 05/08/2016 10:05 PM | | | | | PST [...] + + + documented in this encounter Plan of Treatment Not on filedocumented as of this encounter Visit Diagnoses Not on filedocumented in this encounter
--- OUTSIDE RECORDS SUMMARY | ~2019-05-12 | XMS | Encounter Summary ---
Demographics + + + | Address | [address] | | | [place] [address] | + + + | Home Phone [...] Author + + + | Author | [facility] | + + + | Organization | [facility] | + + + | Address | Unknown | + + + | Phone | Unavailable | + + + Support + + + + + | Name | Relationship | Address | Phone | + + + + + | Anderson Rose | ECON | [address] | | | [place] | | [place] [address] | | + + + + + | Gracie Turcios | ECON | [place] | | + + + + + Care Team Providers + +------+ + | Care Hospice Clinical Marketer Name | Role | Phone | + +------+ + | Anisha Rivera | PCP | | + +------+ + Encounter Details +--------+------+ + + + | Date | Type | Department | Care Team | Description | +--------+------+ + + + | 06/12/ | Lab | Laboratory at | | Supervision of high | | 2018 | | [facility] | | risk in | | | | Center [address] | | third trimester | | | | [place] | | | | | | [address] | | | +--------+------+ + + + Social History + +-------+ [...] + | CBC ONLY | Routin | 06/12/2018 | Supervision of | Results for this | | | e | 3:18 PM | high risk | procedure are in the | | | | PST | in third trimester | results section. | + +--------+ + + + | CBC (HEMOGRAM ONLY) | Routin | 06/12/2018 | Supervision of | Results for this | | | e | 3:18 PM | high risk | procedure are in the | | | | PST | in third trimester | results section. | + +--------+ + + + | ANTIBODY SCREEN | Routin | 06/12/2018 | Supervision of | Results for this | | | e | 3:18 PM | high risk | procedure are in the | | | | PST | in third trimester | results section. | + +--------+ + + + documented in this encounter Results CBC ONLY (06/12/2018 3:18 PM PST) + + + + + + | Component | Value | Ref Range | Performed | Pathologist | | | | | At | Signature | + + + + + + | WHITE CELL | 10.76 | 3.50 - 10.80 | [facility] | | | COUNT | | K/cu mm | [facility] | | | | | | [facility] | | + + + + + + | RED CELL | 3.84 (L) | 4.00 - 5.20 | [facility] | | | COUNT | | M/cu mm | [facility] | | | | | | CENTER | | + + + + + + | HEMOGLOBIN | 10.9 (L) | 12.0 - 16.0 | [facility] | | | | | g/dL | A [facility] | | | | | | CENTER | | + + + + + + | HEMATOCRIT | 32.0 (L) | 36.0 - 46.0 % | [facility] | | | | | | A [facility] | | | | | | CENTER | | + + + + + + | MCV | 83.3 | 80.0 - 96.0 fL | [facility] | | | | | | A [facility] | | | | | | CENTER | | + + + + + + | MCH | 28.4 | 28.0 - 34.7 pg | [facility] | | | | | | A [facility] | | | | | | CENTER | | + + + + + + | MCHC | 34.1 | 33.0 - 35.5 | [facility] | | | | | g/dL | A [facility] | | | | | | CENTER | | + + + + + + | RDW | 13.2 | 11.5 - 14.5 % | [facility] | | | | | | A [facility] | | | | | | CENTER | | + + + + + + | PLATELET | 245 | 150 - 400 K/cu | [facility] | | | COUNT | | mm | A [facility] | | | | | | CENTER | | + + + + + + | MPV | 11.4 (H) | 7.5 - 11.2 fL | [...] + + | [facility] | [address] | [place] [address] | [phone] | | [facility] | Streets | | | + + + + + ANTIBODY SCREEN (06/12/2018 3:18 PM PST) + + + + + + | Component | Value | Ref Range | Performed | Pathologist | | | | | At | Signature | + + + + + + | Antibody | Negative | | [facility] | [...] + | [facility] | [address] | [place] [address] | | | | Streets | | | + + + + + documented in this encounter Visit Diagnoses + + | Diagnosis | + + | Supervision of high risk in third trimester Unspecified high-risk | + + documented in this encounter"
--- OUTSIDE RECORDS SUMMARY | ~2019-05-12 | XMS | Encounter Summary ---
Demographics + + + | Address | [address] | | | [place] [address] | + + + | Home Phone | | + + + | Preferred Language | Unknown | + + + | Marital Status | Single | + + + | Hindu Affiliation | NRP | + + + | Race | White | + + + | Ethnic Group | Not or | + + + Author + + + | Author | [facility] | + + + | Organization | [facility] | + + + | Address | Unknown | + + + | Phone | Unavailable | + + + Support + + + + + | Name | Relationship | Address | Phone | + + + + + | Anderson Rose | ECON | [address] | | | [place] | | [place] [address] | | + + + + + | Gracie Turcios | ECON | [place] | | + + + + + Care Team Providers + +------+ + | Care Tree Topper Name | Role | Phone | + +------+ + | Anisha Rivera | PCP | | + +------+ + Reason for Visit + + + | Reason | Comments | + + + | care | FSBS review | + + + Encounter Details +--------+ + + + + | Date | Type | Department | Care Team | Description | +--------+ + + + + | 01/21/ | | [place] | | care (FSBS | | 2018 | | [facility] | | review) | | | | [facility] | | | | | | [address] | | | | | | [address] | | | | | | [phone] | | | +--------+ + + + [...] + + + | Blood Pressure | - | - | | + [...] | 111 kg (244 lb 12.8 | 01/21/2018 8:30 AM | | | | oz) | PDT | | + + + + + | Height | - | - | | + + + + + | Body Mass Index | 44.76 | 01/05/2018 3:52 PM | | | | | PDT | | + + + + + documented in this encounter Progress Notes Marlee Frausto RN - 01/21/2018 8:00 AM PDTHere for one week follow-up after starting FSBS 4x daily, 01/15/2018. Date range: 01/15/18-01/21/18 Fasting 82-90 (0/6 abnormal) Post-breakfast: 101-136 (0/5 abnormal) Post-lunch: 86-121 (0/6 abnormal) Post-dinner: 83-102 (0/5 abnormal) Elizabet has cut out soda and making healthy food choices. She is pleased with her results and is motivated to continue. She has a nutrition consult appointment scheduled, 01/29@ 083 0 and OBR, 02/04@ 0700 with Ady Rutherford CNM. FSBS graph printed and reviewed by BRIANNA. documented in this enc ounter Plan of Treatment Not on filedocumented as of this encounter Visit Diagnoses + + | Diagnosis | + + | Diet controlled gestational diabetes mellitus (GDM) in second trimester - Primary | + + documented in this encounter"
--- OUTSIDE RECORDS SUMMARY | ~2019-05-12 | XMS | Encounter Summary ---
Demographics + + + | Address | [address] | | | [place] [address] | + + + | Home Phone | | + + + | Preferred Language | Unknown | + + + | Marital Status | Single | + + + | Gnosticism Affiliation | NRP | + + + | Race | White | + + + | Ethnic Group | Not or | + + + Author + + + | Author | [facility] | + + + | Organization | [facility] | + + + | Address | Unknown | + + + | Phone | Unavailable | + + + Support + + + + + | Name | Relationship | Address | Phone | + + + + + | Anderson Rose | ECON | [address] | | | [place] | | [place] [address] | | + + + + + | Gracei Turcios | ECON | [place] | | + + + + + Care Team Providers + +------+ + | Care Casino Host Name | Role | Phone | + +------+ + | Anisha Rivera | PCP | | + +------+ + Reason for Visit + + + | Reason | Comments | + + + | Medication | | + + + Encounter Details +--------+ + + + + | Date | Type | Department | Care Team | Description | +--------+ + + + + | 11/24/ | Telephone | [place] | Pentopoulos, | Medication | | 2018 | | [facility] [address] | MD Leon[address] | | | | [address] | [address] | | | | | [address] [place], [place] | [place], [place] | | | | | [address] | [address] | | | | | [phone] | [phone] | | | | | | | [...]
--- OUTSIDE RECORDS SUMMARY | ~2019-05-12 | XMS | Encounter Summary ---
Demographics + + + | Address | [address] | | | [place] [address] | + + + | Home Phone | | + + + | Preferred Language | Unknown | + + + | Marital Status | Single | + + + | Pentecostal Affiliation | NRP | + + + | Race | White | + + + | Ethnic Group | Not or | + + + Author + + + | Author | [facility] | + + + | Organization | [facility] | + + + | Address | Unknown | + + + | Phone | Unavailable | + + + Support + + + + + | Name | Relationship | Address | Phone | + + + + + | Anderson Rose | ECON | [address] | | | [place] | | [place] [address] | | + + + + + | Gracie Turcios | ECON | [place] | | + + + + + Care Team Providers + +------+ + | Care Program Coordinator Executive Education Name | Role | Phone | + [...] 2017 | | Medicine [address] | CIRCULAR [employer] OPERATOR [address] | | | | | [address] [place], | [place], [place] | | | | | [place] [address] | [address] | | | | | [phone] | [phone] | | | | | | | [...]
--- OUTSIDE RECORDS SUMMARY | ~2019-05-12 | XMS | Encounter Summary ---
Demographics + + + | Address | [address] | | | [place] [address] | + + + | Home Phone | | + + + | Preferred Language | Unknown | + + + | Marital Status | Single | + + + | Christianity Affiliation | NRP | + + + | Race | White | + + + | Ethnic Group | Not or | + + + Author + + + | Author | [facility] | + + + | Organization | [facility] | + + + | Address | Unknown | + + + | Phone | Unavailable | + + + Support + + + + + | Name | Relationship | Address | Phone | + + + + + | Anderson Rose | ECON | [address] | | | [place] | | [place] [address] | | + + + + + | Gracie Turcios | ECON | [place] | | + + + + + Care Team Providers + +------+ + | Care Forming Process Line Worker Name | Role | Phone | + +------+ + | Anisha Rivera | PCP | | + +------+ + Reason for Visit + + + | Reason | Comments | + + + | Obstetric US Scan | | + + + Encounter Details +--------+ + + + + | Date | Type | Department | Care Team | Description | +--------+ + + + + | 04/23/ | | [place] | | Obstetric US Scan | | 2018 | | [facility] [address] | | | | | | [address] [facility] | | | | | | [address] [place], [place] | | | | | | [address] | | | | | | [phone] | | | +--------+ + + + [...] documented as of this encounter Progress Notes Heath Valenzuela MD - 04/23/2018 8:00 AM PSTPatient had a growth with tech today. Zahra ctronically signed by Heath Valenzuela MD at 04/23/2018 9:06 AM PSTdocumented in this e ncounter Plan of Treatment Not on filedocumented as of this encounter Procedures + +--------+ + + + | Procedure Name | Priori | Date/Time | Associated Diagnosis | Comments | | | ty | | | | + +--------+ + + + | CLINIC OB FOLLOW | Routin | 04/23/2018 | Diet controlled | Results for this | | UP PER [facility] | e | | gestational diabetes | procedure are in the | | | | | mellitus (GDM) in | results section. | | | | | second trimester | | | | | | Obesity in | | + +--------+ + + + documented in this encounter Results CLINIC OB FOLLOW UP PER [facility] (04/23/2018) + + + | Impressions | Performed At | + + + | History: 22 y.o. at 27w1d gestation presenting for a | [facility] | | growth scan secondary to velamentous cord and GDM. Findings: | CARE TESTING | | Espinoza in cephalic presentation. Placenta: Anterior BPD: 7.2 | | | cm (87%) 29w 0d HC: 26.7 cm (91%) 29w 0d AC: 24.3 cm (78%) 28w 4d | | | FL: 5.0 cm (48%) 27w 0d EFW: 1177 grams (2lb 9 oz) (64% for GA) | | | JUANI: 28.81 cm MVP: 9.2 cm Impression: 22 y.o. at | | | 27w1d gestation with Velamentous cord and GDM growth at the | | | 64%ile and 28.81 JUANI polyhydramnios Recommendations: Follow up | | | in 3-4 weeks. Performed by corrections identification technician. Type of ultrasound: | | | ABDOMINAL. Read by HEATH VALENZUELA MD | | + + + + +---------+ + + | [...] trimester - Primary | + + | Obesity in Obesity complicating , childbirth, or the puerperium, | | unspecified as to episode of care or not applicable | + + documented in this encounter"
--- OUTSIDE RECORDS SUMMARY | ~2019-05-12 | XMS | Encounter Summary ---
Demographics + + + | Address | [address] | | | [place] [address] | + + + | Home Phone | | + + + | Preferred Language | Unknown | + + + | Marital Status | Single | + + + | Muslim Affiliation | NRP | + + + | Race | White | + + + | Ethnic Group | Not or | + + + Author + + + | Author | [facility] | + + + | Organization | [facility] | + + + | Address | Unknown | + + + | Phone | Unavailable | + + + Support + + + + + | Name | Relationship | Address | Phone | + + + + + | Anderson Rose | ECON | [address] | | | [place] | | [place] [address] | | + + + + + | Gracie Turcios | ECON | [place] | | + + + + + Care Team Providers + +------+ + | Care Scalehouse Attendant Name | Role | Phone | + [...] | | 2015 | | Department at [facility] | | | | | | [facility] [address] | | | | | | [place], | | | | | | [place] [address] | | | | | | [phone] | | | +--------+ + + + [...]
--- OUTSIDE RECORDS SUMMARY | ~2019-05-12 | XMS | Encounter Summary ---
Demographics + + + | Address | [address] | | | [place] [address] | + + + | Home Phone [...] | | Garrett | | [place] [address] | | + + + + + | Gracie Bullock | ECON | АНДРЕЙCHARITYEL | | + + + + + Care Team Providers + +------+ + | Care Piece Maker Name | Role | Phone | + +------+ + | Ryan Rivera | PCP | | + +------+ + Reason for Visit + + + | Reason | Comments | + + + | Back pain | x3 years ago, has been having pretty constant pain that is | | | getting worse. Pain is along her spine, she has a lump on the top | | | of spine. | + + + Encounter Details +--------+---------+ + + + | Date | Type | Department | Care Team | Description | +--------+---------+ + + + | 02/11/ | Office | [facility] | Ryan Rivera, | Chronic midline low | | 2017 | Visit | Medicine [address] [facility] [address] | back pain without | | | | [address] [place], | [place], [place] | sciatica (Primary | | | | [place] [address] | [address] | Dx) | | | | [phone] | [phone] | | | | | | | | +--------+---------+ + + + Social History + +-------+ [...] + + + | Blood Pressure | 118/88 | 02/11/2017 8:23 AM | | | | | PDT | | + + + + + | Pulse | 81 | 02/11/2017 8:23 AM | | | | | PDT | | + + + + + | Temperature | 36.8 C (98.3 F) | 02/11/2017 8:23 AM | | | | | PDT | | + + + + + | Respiratory Rate | - | - | | + + + + + | Oxygen Saturation | 99% | 02/11/2017 8:23 AM | | | | | PDT | | + + + + + | Inhaled Oxygen | - | - | | | Concentration | | | | + + + + + | Weight | 112.9 kg (249 lb) | 02/11/2017 8:23 AM | | | | | PDT | | + + + + + | Height | 160 cm (5' 3") | 02/11/2017 8:23 AM | | | | | PDT | | + + + + + | Body Mass Index | 44.11 | 02/11/2017 8:23 AM | | | | | PDT | | + + + + + documented in this encounter Patient Instructions Patient Instructions Ryan Rivera FNP - 02/11/2017 8:52 AM PDT- go to the hospital f or xrays at your convenience - to help with back pain I recommend getting up and changing positions frequently (every 1- 2 hours), regular stretching, and abdominal strengthening. Attached are some exercises you m ight try at home. Depending on what your xrays show you will likely benefit from physical th erapy - Use heat and ice as needed at the end of the day to help with pain. Consider propping on pillows to help support spine while you sleep. Low Back Pain: Exercises Your Care Instructions Here are some examples of typical rehabilitation exercises for your condition. Start each e xercise slowly. Ease off the exercise if you start to have pain. Your doctor or physical therapist will tell you when you can start these exercises and whic h ones will work best for you. How to do the exercises Press-up 1. Lie on your stomach, supporting your body with your forearms. 2. Press your elbows down into the floor to raise your upper back. As you do this, relax yo ur stomach muscles and allow your back to arch without using your back muscles. As your pres s up, do not let your hips or pelvis come off the floor. 3. Hold for 15 to 30 seconds, then relax. 4. Repeat 2 to 4 times. Alternate arm and leg (bird dog) exercise Note: Do this exercise slowly. Try to keep your body straight at all times, and do not let one hip drop lower than the other. 1. Start on the floor, on your hands and knees. 2. Tighten your belly muscles. 3. Raise one leg off the floor, and hold it straight out behind you. Be careful not to let your hip drop down, because that will twist your trunk. 4. Hold for about 6 seconds, then lower your leg and switch to the other leg. 5. Repeat 8 to 12 times on each leg. 6. Over time, work up to holding for 10 to 30 seconds each time. 7. If you feel stable and secure with your leg raised, try raising the opposite arm straigh t out in front of you at the same time. Ehfd-ql-fkqer exercise 1. Lie on your back with your knees bent and your feet flat on the floor. 2. Bring one knee to your chest, keeping the other foot flat on the floor (or keeping the o ther leg straight, whichever feels better on your lower back). 3. Keep your lower back pressed to the floor. Hold for at least 15 to 30 seconds. 4. Relax, and lower the knee to the starting position. 5. Repeat with the other leg. Repeat 2 to 4 times with each leg. 6. To get more stretch, put your other leg flat on the floor while pulling your knee to you r chest. Curl-ups 1. Lie on the floor on your back with your knees bent at a 90-degree angle. Your feet shoul d be flat on the floor, about 12 inches from your buttocks. 2. Cross your arms over your chest. If this bothers your neck, try putting your hands behin d your neck (not your head), with your elbows spread apart. 3. Slowly tighten your belly muscles and raise your shoulder blades off the floor. 4. Keep your head in line with your body, and do not press your chin to your chest. 5. Hold this position for 1 or 2 seconds, then slowly lower yourself back down to the floor . 6. Repeat 8 to 12 times. Pelvic tilt exercise 1. Lie on your back with your knees bent. 2. "Brace" your stomach. This means to tighten your muscles by pulling in and imagining you r belly button moving toward your spine. You should feel like your back is pressing to the f hardeep and your hips and pelvis are rocking back. 3. Hold for about 6 seconds while you breathe smoothly. 4. Repeat 8 to 12 times. Heel dig bridging 1. Lie on your back with both knees bent and your ankles bent so that only your heels are d igging into the floor. Your knees should be bent about 90 degrees. 2. Then push your heels into the floor, squeeze your buttocks, and lift your hips off the f hardeep until your shoulders, hips, and knees are all in a straight line. 3. Hold for about 6 seconds as you continue to breathe normally, and then slowly lower your hips back down to the floor and rest for up to 10 seconds. 4. Do 8 to 12 repetitions. Hamstring stretch in doorway 1. Lie on your back in a doorway, with one leg through the open door. 2. Slide your leg up the wall to straighten your knee. You should feel a gentle stretch tarah n the back of your leg. 3. Hold the stretch for at least 15 to 30 seconds. Do not arch your back, point your toes, or bend either knee. Keep one heel touching the floor and the other heel touching the wall. 4. Repeat with your other leg. 5. Do 2 to 4 times for each leg. Hip flexor stretch 1. Kneel on the floor with one knee bent and one leg behind you. Place your forward knee ov er your foot. Keep your other knee touching the floor. 2. Slowly push your hips forward until you feel a stretch in the upper thigh of your rear l eg. 3. Hold the stretch for at least 15 to 30 seconds. Repeat with your other leg. 4. Do 2 to 4 times on each side. Wall sit 1. Stand with your back 10 to 12 inches away from a wall. 2. Lean into the wall until your back is flat against it. 3. Slowly slide down until your knees are slightly bent, pressing your lower back into the wall. 4. Hold for about 6 seconds, then slide back up the wall. 5. Repeat 8 to 12 times. Follow-up care is a emerson part of your treatment and safety. Be sure to make and go to all ap pointments, and call your doctor if you are having problems. It's also a good idea to know y our test results and keep a list of the medicines you take. Where can you learn more? To learn more about "Low Back Pain: Exercises", log into your [employer] account at [email or web address]. You can enter Z938 in the "mySBX Library" search box. Not on MyChart? Review the MyChart section of your After Visit Summary for directions on [place] to sign up. Current as of: November 06, 2015 Content Version: 11.2 3007-1843 [employer]. Care instructions adapted under license by [facility]. If you have questions about a medical condition or this instr uction, always ask your healthcare professional. [employer] disclaims any frederic anty or liability for your use of this information. Learning About How to Have a Healthy Back What causes back pain? Back pain is often caused by overuse, strain, or injury. For example, people often hurt the ir backs playing sports or working in the yard, being jolted in a car accident, or lifting s omething too heavy. Aging plays a part too. Your bones and muscles tend to lose strength as you age, which make s injury more likely. The spongy discs between the bones of the spine (vertebrae) may suffer from wear and tear and no longer provide enough cushion between the bones. A disc that bulg es or breaks open (herniated disc) can press on nerves, causing back pain. In some people, back pain is the result of arthritis, broken vertebrae caused by bone loss (osteoporosis), illness, or a spine problem. Although most people have back pain at one time or another, there are steps you can take to make it less likely. How can you have a healthy back? Reduce stress on your back through good posture Slumping or slouching alone may not cause low back pain. But after the back has been strain ed or injured, bad posture can make pain worse. Sleep in a position that maintains your back's normal curves and on a mattress that feel s comfortable. Sleep on your side with a pillow between your knees, or sleep on your back wi th a pillow under your knees. These positions can reduce strain on your back. Stand and sit up straight. "Good posture" generally means your ears, shoulders, and hips are in a straight line. If you must stand for a long time, put one foot on a stool, ledge, or box. Switch feet e very now and then. Sit in a chair that is low enough to let you place both feet flat on the floor with both knees nearly level with your hips. If your chair or desk is too high, use a footrest to canales se your knees. Place a small pillow, a rolled-up towel, or a lumbar roll in the curve of you r back if you need extra support. Try a kneeling chair, which helps tilt your hips forward. This takes pressure off your l ower back. Try sitting on an exercise ball. It can rock from side to side, which helps keep your ba ck loose. When driving, keep your knees nearly level with your hips. Sit straight, and drive with both hands on the steering wheel. Your arms should be in a slightly bent position. Reduce stress on your back through careful lifting Squat down, bending at the hips and knees only. If you need to, put one knee to the floo r and extend your other knee in front of you, bent at a right angle (half kneeling). Press your chest straight forward. This helps keep your upper back straight while keepin g a slight arch in your low back. Hold the load as close to your body as possible, at the level of your belly button (manuela l). Use your feet to change direction, taking small steps. Lead with your hips as you change direction. Keep your shoulders in line with your hips as you move. Set down your load carefully, squatting with your knees and hips only. Exercise and stretch your back Do some exercise on most days of the week, if your doctor says it is okay. You can walk, run, swim, or cycle. Stretch your back muscles. Here are a few exercises to try: Lie on your back, and gently pull one bent knee to your chest. Put that foot back on the floor, and then pull the other knee to your chest. Do pelvic tilts. Lie on your back with your knees bent. Tighten your stomach muscles. Pu ll your belly button (navel) in and up toward your ribs. You should feel like your back is p ressing to the floor and your hips and pelvis are slightly lifting off the floor. Hold for 6 seconds while breathing smoothly. Sit with your back flat against a wall. Keep your core muscles strong. The muscles of your back, belly (abdomen), and buttocks s upport your spine. Pull in your belly and imagine pulling your navel toward your spine. Hold this for 6 sec onds, then relax. Remember to keep breathing normally as you tense your muscles. Do curl-ups. Always do them with your knees bent. Keep your low back on the floor, and c url your shoulders toward your knees using a smooth, slow motion. Keep your arms folded acro ss your chest. If this bothers your neck, try putting your hands behind your neck (not your head), with your elbows spread apart. Lie on your back with your knees bent and your feet flat on the floor. Tighten your elaine y muscles, and then push with your feet and raise your buttocks up a few inches. Hold this p osition 6 seconds as you continue to breathe normally, then lower yourself slowly to the bob or. Repeat 8 to 12 times. If you like group exercise, try Pilates or yoga. These classes have poses that strengthe n the core muscles. Lead a healthy lifestyle Stay at a healthy weight to avoid strain on your back. Do not smoke. Smoking increases the risk of osteoporosis, which weakens the spine. If yo u need help quitting, talk to your doctor about stop-smoking programs and medicines. These c an increase your chances of quitting for good. Where can you learn more? To learn more about "Learning About How to Have a Healthy Back", log into your [employer] unt at [email or web address]. You can enter [id number] in the "mySBX Library" search box. Not on [employer]? Review the [employer] section of your After Visit Summary for directions on ho w to sign up. Current as of: November 06, 2015 Content Version: 11.2 9248-7222 [employer]. Care instructions adapted under license by [facility] [place]. If you have questions about a medical condition or this instr uction, always ask your healthcare professional. [employer] disclaims any frederic anty or liability for your use of this information. documented in this encounter Progress Notes Ryan Rivera FNP - 02/11/2017 8:30 AM PDT Family Medicine Acute Visit Date of Service: 02/11/17, 8:31 AM Providers Involved in Care of Patient: Eric as of 02/11/2017 PCP: ARTHUR Waters Encounter Provider: ARTHUR Waters Chief Complaint: HPI: Ms. Bullock is presents today with back concerns. 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 Reports s he threw it out at one point but never sought care afterward. She continued to have back elina n that would gradually worsen over the day. Over the last three years has gradually worsened, and notices it to be worse when she is si tting for long periods. Presently she will wake up most mornings feeling okay (as long as she didn't sleep in a bad position) and then over the day will have needle pricking pain to low spine radiating up. Will gradually improve after moving some but sometime it persists. Has noticed it to be wor se in recent months, hasnt changed much in terms of activity. No saddle anesthesia, numbness to lower extremities. No weakness to legs. No incontinence. Uses ibuprofen 1x weekly when pain is severe, which is mildly helpful Laying in bed and sitting make it worse. ROS: Review of Systems Constitutional: Negative for chills and fever. Respiratory: Negative for cough and shortness of breath. Cardiovascular: Negative for chest pain and palpitations. Gastrointestinal: Negative for abdominal pain, nausea and vomiting. Genitourinary: Negative for dysuria. Musculoskeletal: Negative for myalgias. Neurological: Negative for dizziness, loss of consciousness and headaches. Allergies: Allergies Allergen Reactions Peanut Anaphylaxis Lactose Stomach Upset Medications: Current Outpatient Prescriptions: albuterol 90 mcg/actuation inhalation HFA aerosol inhaler , Inhale 1-2 puffs by mouth every four hours as needed., Disp: 1 Inhaler, Rfl: 0 beclomethasone (QVAR) 40 mcg/actuation inhalation aerosol, Inhale 2 puffs two times daily., Disp: 1 Inhaler, Rfl: 0 benzonatate (TESSALON PERLES) 100 mg oral capsule, 1-2 capsules three times daily as needed for cough., Disp: 30 capsule, Rfl: 0 norethindrone-ethinyl estradiol 1-20 mg-mcg oral tablet, Take 1 tablet by mouth once daily. , Disp: 3 Package, Rfl: 4 Ikxnajnd-Qv-Rxx-Fe-FA ( VITAMIN) oral tablet, Take 1 tablet by mouth once daily., Disp: 90 tablet, Rfl: 3 triamcinolone acetonide 0.1 % topical ointment, , Disp: , Rfl: 0 Physical Exam: BP 118/88 | Pulse 81 | Temp (Src) 36.8 C (98.3 F) (Oral) | Ht 1.6 m (5' 3") | Wt 112.9 kg (249 lb) | SpO2 99% | BMI 44.11 kg/(m^2) Physical Exam Constitutional: She is oriented to person, place, and time and well-developed, well-nourish ed, and in no distress. HENT: Head: Normocephalic. Cardiovascular: Normal rate. Pulmonary/Chest: Effort normal. Musculoskeletal: Back: Neurological: She is alert and oriented to person, place, and time. Psychiatric: Mood and affect normal. Assessment and Plan: (M54.5, G89.29) Chronic midline low back pain without sciatica (primary encounter diagnosi s) Plan: X-RAY SPINE THORACOLUMBAR 2 VIEWS Patient presents today with ongoing low back pain x3 years. Worsened in recent months with sitting or long periods. Exam revealed excess lordosis around L1, with tenderness to palpati on. Will obtain xrays today. Recommend physical therapy for core strengthening. Patient did have + SLR, given duration of symptoms and mild nature recommend conservative treatment to s tart. Discussed importance of back support while sleeping, using pillows, as well as morning stretching, core strengthening and frequent change of position during the day while working . Ryan GIBSON, DNP Instructor [facility] Family Medicine [facility] P: [phone] F: [phone] Email: [email or web address] MA - 02/11/2017 8:30 AM PDT Elizabet Bullock is a 21 y.o. female who is in clinic today accompanied by viktoria larios. Chief Complaint Patient presents with Back pain x3 years ago, has been having pretty constant pain that is getting worse. Pain is along h er spine, she has a lump on the top of spine. Health Maintenance Due Topic HIV SCREEN HPV (GARDASIL) (1 of 3 - Female 3 Dose Series) Meningococcal Conjugate Valent-4 (MCV4) (1 of 1) INFLUENZA VACCINE (FLU SHOT) Health Maintenance (Actions taken) documented in this enc ounter Plan of Treatment Not on filedocumented as of this encounter Results X-RAY SPINE THORACOLUMBAR 2 VIEWS (02/11/2017 9:21 AM PDT) + + | Specimen | + + | | + + + + + | Narrative | Performed At | + + + | [address] [place] [address] | [facility] | | [place] [address] | DEPARTMENT OF | | [phone] Name: ELIZABET BULLOCK Phys: | RADIOLOGY | | DECLANPOLISebRYAN : 1995 Sex: F | | | CSN: [id number] MR# [id number] Exam Date: | | | 02/11/2017 EXAM: X-RAY SPINE THORACOLUMBAR 2 VIEWS [id number] | | | CLINICAL HISTORY: Back pain near L1, access lordosis, ongoing back | | | pain. COMPARISON: None available. TECHNIQUE: AP and lateral | | | views of the thoracolumbar spine were obtained. FINDINGS: There | | | is normal thoracic kyphosis without scoliosis. The vertebral body | | | and intervertebral disc space heights are normal. There is no | | | significant endplate spurring. The heart size is normal and the | | | visualized lungs are clear. IMPRESSION: Normal thoracolumbar | | | spine radiographs. REPORT SIGNED IN OTHER VENDOR SYSTEM | | | 02/11/2017 Reported by: LINA TYLER MD Electronically | | | signed by: LINA TYLER MD Transcribed Date/Time: 02/11/2017 | | | 09:57 Personnel Recruiter: ALESIA | | + + + + + | Procedure Note | + + | Interface, Radiology Results - 02/11/2017 10:02 AM PDT [address] | | [place] [address] | | Name: ARA,ELIZABET Phys: RYAN ZAPIEN : 1995 Sex: | | F CSN: [id number] MR# [id number] Exam Date: 02/11/2017 EXAM:X-RAY SPINE | | THORACOLUMBAR 2 VIEWS [id number] CLINICAL HISTORY:Back pain near L1, access lordosis, | | ongoing back pain. COMPARISON:None available. TECHNIQUE:AP and lateral views of the | | thoracolumbar spine were obtained. FINDINGS:There is normal thoracic kyphosis without | | scoliosis. The vertebralbody and intervertebral disc space heights are normal. There | | is nosignificant endplate spurring. The heart size is normal and thevisualized lungs | | are clear. IMPRESSION:Normal thoracolumbar spine radiographs. REPORT SIGNED IN OTHER | | VENDOR SYSTEM 02/11/2017 Reported by: LINA TYLER MD Electronically signed by: | | LINA TYLER MD Transcribed Date/Time: 02/11/2017 09:57Transcriptionist: FLUENCY | |EXAM: | |X-RAY SPINE THORACOLUMBAR 2 VIEWS [id number] | | | |CLINICAL HISTORY: | |Back pain near L1, access lordosis, ongoing back pain. | | | |COMPARISON: | |None available. | | | |TECHNIQUE: | |AP and lateral views of the thoracolumbar spine were obtained. | | | |FINDINGS: | |There is normal thoracic kyphosis without scoliosis. The vertebral | |body and intervertebral disc space heights are normal. There is no | |significant endplate spurring. The heart size is normal and the | |visualized lungs are clear. | | | |IMPRESSION: | |Normal thoracolumbar spine radiographs. | | | | | | REPORT SIGNED IN OTHER VENDOR SYSTEM 02/11/2017 | |Reported by: LINA TYLER MD | | | |Electronically signed by: LINA TYLER MD | | | |Transcribed Date/Time: 02/11/2017 09:57 | |Personnel Recruiter: FLUENCY | | | | | | | + + + +---------+ + + | Performing | Address | City/State/Zipcode | Phone Number | | Organization | | | | + +---------+ + + | [facility] | | | | | RADIOLOGY | | | | + +---------+ + + documented in this encounter Visit Diagnoses + + | Diagnosis | + + | Chronic midline low back pain without sciatica - Primary | + + documented in this encounter
--- OUTSIDE RECORDS SUMMARY | ~2019-05-12 | XMS | Encounter Summary ---
Demographics + + + | Address | [address] | | | [place] [address] | + + + | Home Phone | | + + + | Preferred Language | Unknown | + + + | Marital Status | Single | + + + | Rastafari Affiliation | NRP | + + + | Race | White | + + + | Ethnic Group | Not or | + + + Author + + + | Author | [facility] | + + + | Organization | [facility] | + + + | Address | Unknown | + + + | Phone | Unavailable | + + + Support + + + + + | Name | Relationship | Address | Phone | + + + + + | Anderson Rose | ECON | [address] | | | [place] | | [place] [address] | | + + + + + | Gracie Bullock | ECON | [place] | | + + + + + Care Team Providers + +------+ + | Care Borematic Machine Operator Name | Role | Phone | + +------+ + | Anisha Rivera | PCP | | + +------+ + Reason for Visit +--------+ + | Reason | Comments | +--------+ + | Cough | pt c/o cough for a week, she c/o sore throat but no fever. | +--------+ + Encounter Details +--------+---------+ + + + | Date | Type | Department | Care Team | Description | +--------+---------+ + + + | 09/28/ | Office | [facility] | Mame Taylor MD | Acute non-recurrent | | 2019 | Visit | [address] | maxillary sinusitis | | | | [address], | [place] [address] | (Primary Dx); URI | | | | [place] [address] | [phone] | with cough and | | | | [phone] | | congestion | +--------+---------+ + + + Social History [...] + + + | Blood Pressure | 118/76 | 09/28/2018 12:59 PM | | | | | PDT | | + + + + + | Pulse | 96 | 09/28/2018 12:59 PM | | | | | PDT | | + + + + + | Temperature | 37 C (98.6 F) | 09/28/2018 12:59 PM | | | | | PDT | | + + + + + | Respiratory Rate | - | - | | + + + + + | Oxygen Saturation | 96% | 09/28/2018 12:59 PM | | | | | PDT | | + + + + + | Inhaled Oxygen | - | - | | | Concentration | | | | + + + + + | Weight | 113.4 kg (250 lb) | 09/28/2018 12:59 PM | | | | | PDT | | + + + + + | Height | 157.5 cm (5' 2") | 09/28/2018 12:59 PM | | | | | PDT | | + + + + + | Body Mass Index | 45.73 | 09/28/2018 12:59 PM | | | | | PDT | | + + + + + documented in this encounter Patient Instructions Patient Instructions Mame Taylor MD - 09/28/2018 1:40 PM PDTAdvil cold and sinus is a g ood decongestant Guaifenesin 200 to 400mg every 4 hours to break up mucous. documented in this encounter Progress Notes Mame Taylor MD - 09/28/2018 1:40 PM PDT SUBJECTIVE CC: Chief Complaint Patient presents with Cough pt c/o cough for a week, she c/o sore throat but no fever. HPI: Frank Bullock is a 23 y.o. female presents for cough x 1 week. She report s sore throat but no fever. Bad sinus pressure. Headache since yesterday. This morning thought she was getting better then got bad again later today. Slept most of the day yesterday. Productive cough. Worse at night. Has humidifiers running in the house, dayquil. Blowing her nose a lot. Sometimes clears, sometimes congested. REVIEW OF SYSTEMS: Review of Systems Constitutional: Negative for fever. HENT: Positive for congestion, sinus pain and sore throat. Respiratory: Positive for cough. Neurological: Positive for headaches. Current Medications: Current Outpatient Prescriptions Medication Sig cefDINir 300 mg oral capsule Take 1 capsule by mouth two times daily for 10 days. ethinyl estradiol-norelgestromin 150-35 mcg/24 hr transdermal patch weekly Apply 1 patc h to skin every seven days. Apply 1 patch every 7 days for 3 weeks, then take 7 days off, th en apply a new patch No current facility-administered medications for this visit. Allergies/Adverse Drug Reactions: Allergies Allergen Reactions Peanut Anaphylaxis Avoids all nuts Penicillin Anaphylaxis and Hives All brothers have had this reaction to penicillin so patient does not take this medicatio n Lactose Stomach Upset Social History Substance Use Topics Smoking status: Never Smoker Smokeless tobacco: Never Used Alcohol use No OBJECTIVE BP 118/76 (BP Location: Left upper arm, Patient Position: Sitting) | Pulse 96 | Temp 37 C (98.6 F) (Oral) | Ht 1.575 m (5' 2") | Wt 113.4 kg (250 lb) | SpO2 96% | BMI 45.73 kg/m | BSA 2.23 m Estimated body mass index is 45.73 kg/m as calculated from the following: Height as of this encounter: 1.575 m (5' 2"). Weight as of this encounter: 113.4 kg (250 lb). Physical Exam Constitutional: She is oriented to person, place, and time and well-developed, well-nourish ed, and in no distress. HENT: Head: Normocephalic and atraumatic. Right Ear: External ear normal. Left Ear: External ear normal. Mouth/Throat: Oropharynx is clear and moist. Eyes: Pupils are equal, round, and reactive to light. Conjunctivae and EOM are normal. Neck: Normal range of motion. Neck supple. Cardiovascular: Normal rate, regular rhythm and normal heart sounds. Exam reveals no frict ion rub. No murmur heard. Pulmonary/Chest: Coughing intermittently coarse breath sounds on left Musculoskeletal: Normal range of motion. Lymphadenopathy: She has no cervical adenopathy. Neurological: She is alert and oriented to person, place, and time. Gait normal. Skin: Skin is warm and dry. No rash noted. Psychiatric: Flat affect, no agitation, no SI ASSESSMENT/PLAN We appreciate the opportunity of participating in Ms. Bullock's care. Follow up in Family Medicine clinic in 2 weeks if symptoms persist. Frank was seen today for cough. Diagnoses and all orders for this visit: Acute non-recurrent maxillary sinusitis - X-RAY CHEST 2 VIEW; Future URI with cough and congestion - X-RAY CHEST 2 VIEW; Future Other orders - cefDINir 300 mg oral capsule; Take 1 capsule by mouth two times daily for 10 days. PCN allergy is her brothers, and her mother just put it on her chart as a suspected allergy . She has never been exposed. She had ancef perioperatively. Will treat sinusitis with cefdi hilary. CXR normal. documented in this enco unter Plan of Treatment Not on filedocumented as of this encounter Results X-RAY CHEST 2 VIEW (09/28/2018 2:11 PM PDT) + + | Specimen | + + | | + + + + + | Narrative | Performed At | + + + | [address] [place] [address] | [facility] | | [place] [address] | DEPARTMENT | | [phone] Name: FRANK BULLOCK Phys: | RADIOLOGY | | KEATONMAME : 1995 Sex: F CSN: | | | [id number] MR# [id number] Exam Date: 09/28/2018 | | | EXAM: TWO VIEW CHEST XRAY CLINICAL HISTORY: Cough Cough | | | COMPARISON: None available. None TECHNIQUE: PA and lateral | | | views of the chest were obtained. FINDINGS: Lungs: No focal | | | infiltrate, pneumothorax, effusion, CHF or pulmonary edema. | | | Heart: Normal. Bones: Normal. IMPRESSION: No acute | | | cardiopulmonary process. REPORT SIGNED IN OTHER VENDOR | | | SYSTEM 09/28/2018 Reported by: Peter Santos MD | | | Electronically signed by: Peter Santos MD Transcribed Date/Time: | | | 09/28/2018 15:22 Corporate Events Director: FLUENCY | | + + + + + | Procedure Note | + + | Interface, Radiology Results - 09/28/2018 3:27 PM PDT [address] | | [address] [place] [address] | | Name: FRANK BULLOCK Phys: MAME TAYLOR : 1995 Sex: F | | CSN: [id number] MR# [id number] Exam Date: 09/28/2018 EXAM:TWO VIEW CHEST XRAY | | CLINICAL HISTORY:CoughCough COMPARISON:None available.None TECHNIQUE:PA and lateral | | views of the chest were obtained. FINDINGS:Lungs: No focal infiltrate, pneumothorax, | | effusion, CHF or pulmonaryedema. Heart: Normal. Bones: Normal. IMPRESSION:No acute | | cardiopulmonary process. REPORT SIGNED IN OTHER VENDOR SYSTEM 09/28/2018 Reported | | by: Peter Santos MD Electronically signed by: Peter Santos MD Transcribed Date/Time: | | 09/28/2018 15:22Transcriptionist: ALESIA | | Exam Date: 09/28/2018 | | | |EXAM: | |TWO VIEW CHEST XRAY | | | |CLINICAL HISTORY: | |Cough | |Cough | | | |COMPARISON: | |None available. | |None | | | |TECHNIQUE: | |PA and lateral views of the chest were obtained. | | | |FINDINGS: | |Lungs: No focal infiltrate, pneumothorax, effusion, CHF or pulmonary | |edema. | | | |Heart: Normal. | | | |Bones: Normal. | | | |IMPRESSION: | |No acute cardiopulmonary process. | | | | | | REPORT SIGNED IN OTHER VENDOR SYSTEM 09/28/2018 | |Reported by: Peter Santos MD | | | |Electronically signed by: Peter Santos MD | | | |Transcribed Date/Time: 09/28/2018 15:22 | |Corporate Events Director: FLUENCY | | | | | | [...] + | Diagnosis | + + | Acute non-recurrent maxillary sinusitis - Primary | + + | URI with cough and congestion | + + documented in this encounter
--- OUTSIDE RECORDS SUMMARY | ~2019-05-12 | XMS | Encounter Summary ---
Demographics + + + | Address | [address] | | | [place] [address] | + + + | Home Phone [...] Author + + + | Author | [facility] | + + + | Organization | [facility] | + + + | Address | Unknown | + + + | Phone | Unavailable | + + + Support + + + + + | Name | Relationship | Address | Phone | + + + + + | Anderson Rose | ECON | [address] | | | [place] | | [place] [address] | | + + + + + | Gracie Turcios | ECON | [place] | | + + + + + Care Team Providers + +------+ + | Care Company Pilot Name | Role | Phone | + [...] | +--------+ + + + + | 05/28/ | | [place] | [facility], | ; | | 2018 | [facility] [address] | [address] | [address] | | | | [address] | | | | [address] [place], [place] | [place] | | | | | [address] | [address] | | | | | [phone] | [phone] | | | | | | | [...] + + + | Blood Pressure | 120/74 | 05/28/2018 3:05 PM | | | | | PST [...] + + + + | Weight | 120.2 kg (265 lb) | 05/28/2018 3:05 PM | | | | | PST | | + + + + + | Height | - | - | | + + + + + | Body Mass Index | 48.46 | 03/16/2018 3:13 PM | | | | | PDT | | + + + + + documented in this encounter Patient Instructions Patient Instructions Leonela Luke MD - 05/28/2018 3:15 PM PSTAs your sugars keenan nue to be elevated on the metformin, we need to start insulin at this time. You have an dolly ointment at [facility] tomorrow to teach you how to give herself insulin. Your appointment is at 1 o'clock. I have sent NPH pen to your pharmacy. You will start it tomorrow night a t bedtime. I would like you to come in on Friday to review your sugars on insulin to see if we need to increase your dose of insulin. It is very important that you check your sugars 4 times a day so we can tell if we need to add insulin in the morning. Visit - Week 32 Please read chapters 9 and 27 in your book. Planning for the of your baby is important. Getting ready at home for your baby will assure that when you get home from the hospital, everything is ready for you and your baby to make the transition to your new life together. Some things to consider: ? Pediatric care ? Tdap ? Flu shots ? Vaccinations ? A place to sleep ? A place to change diapers ? A support system for you ? Nutrition Family Planning Did you talk to your mate about contraception? If not, do so soon. We would like you to h ave a solid plan in place even before your baby gets here. Why?.....because it s good for your baby, it s good for you, and it s good for your relationship with your mate. Also , we want you to be able to decide when you get , again. We now classify control methods into Tier 1 and Tier 2. Tier 2 methods are the ones that a lot of people make mistakes with ..they re good if used perfectly; but not yuriy vera is capable of that ALL the time (condoms get left in drawer - with the diaphragms); pi lls are forgotten or lost; and rings and patches require changing). Plus, many of the dual hormone methods (containing BOTH an estrogen and a progestin) may not be the best choice for mothers. The Tier 1 methods are the three I s : ? Injectables ? Implants ? IUDs Are you leery of hormones ? Many women decline or delay good contraception because th ey don t want hormones. Some of them delay/decline right up to another . When the risks of the hormones used in modern contraceptives are weighed against the risks of pre gnancy, there is no comparison ..the potential risks of are much higher. And all of these methods are safe to use when you are . Let s talk about this at your next visit. Maternal Age Not that 35 years is all that old .however, recent studies indicate that the unborn ba bies of older mothers may be at a higher risk of stillbirth as delivery approaches. T his risk increases as the mother s age increases, and is independent of other risk factors a mother may have (like diabetes or high blood pressure). We re not sure why this is it probably has something to do with the placenta; possi anatoly with the aging of blood vessels, or some of the other phenomena associated with the agin g process. In any event, there is no clear explanation. Also, there is no clear standard o f care regarding how best to manage older mothers as the day of delivery approaches. Our practice has reached a consensus on what we recommend: ? Count to Ten. Keep a mental note of your baby s movements throughout the day. If you re concerned about less movement, eat or drink something and lie down on your left side in a quiet place. Start counting your baby s movements. If it takes more than 2 hours to c ount 10 distinct movements, call us. ? For women between the ages of 35-39, we advise testing in the 39th week of your , and induction of your labor if you go more than one week beyond your due yue e. ? For women over the age of 40, we suggest getting an ultrasound between weeks 34 and 36, b eginning weekly testing in the 36th week of , and induction of labor in the last week of your (39-40 weeks). ? We can talk about this at your next visit. testing involves assessment of your baby s heart rate (20-45 minutes on the fet al heart rate monitor) and a brief ultrasound to measure the fluid around the baby (a good g auge of the health of the placenta). Weeks 32 to 34 of Your : Care Instructions Your Care Instructions During the last few weeks of your , you may have more aches and pains. It's import ant to rest when you can. Your growing baby is putting more pressure on your bladder. So you may need to urinate more often. Hemorrhoids are also common. These are painful, itchy veins in the rectal area. In the 36th week, most women have a test for group B streptococcus (GBS). GBS is a common b acteria that can live in the vagina and rectum. It can make your baby sick after . If y ou test positive, you will get antibiotics during labor. These will keep your baby from gett ing the bacteria. You may want to talk with your doctor about banking your baby's umbilical cord blood. This is the blood left in the cord after . If you want to save this blood, you must arrange it ahead of time. You can't decide at the last minute. If you haven't already had the Tdap shot during this , talk to your doctor about g etting it. It will help protect your against pertussis infection. Follow-up care is a emersno part of your treatment and safety. Be sure to make and go to all ap pointments, and call your doctor if you are having problems. It's also a good idea to know y our test results and keep a list of the medicines you take. How can you care for yourself at home? Ease hemorrhoids Get more liquids, fruits, vegetables, and fiber in your diet. This will help keep your s tools soft. Avoid sitting for too long. Lie on your left side several times a day. Clean yourself with soft, moist toilet paper. Or you can use witch lisa pads or persona l hygiene pads. If you are uncomfortable, try ice packs. Or you can sit in a warm sitz bath. Do these fo r 20 minutes at a time, as needed. Use hydrocortisone cream for pain and itching. Two examples are Anusol and Preparation H Hydrocortisone. Ask your doctor about taking an kqme-dgw-eiykyil stool softener. Consider Experts recommend that women breastfeed for 1 year or longer. Breast milk is the perfect food for babies. Breast milk is easier for babies to digest than formula. And it is always available, jus t the right temperature, and free. Breast milk may help protect your child from some health problems. Breastfed babies are less likely than formula-fed babies to: Get ear infections, colds, diarrhea, and pneumonia. Be obese or get diabetes later in life. Women who breastfeed have less bleeding after the . Their uteruses also shrink back faster. Some women who breastfeed lose weight faster. Making milk chamorro calories. can lower your risk of breast cancer, ovarian cancer, and osteoporosis. Decide about circumcision for boys As you make this decision, it may help to think about your personal, faith, and fami ly traditions. You get to decide if you will keep your son's penis natural or if he will be circumcised. If you decide that you would like to have your baby circumcised, talk with your doctor. You can share your concerns about pain. And you can discuss your preferences for anesthesia. Where can you learn more? To learn more about "Weeks 32 to 34 of Your : Care Instructions", log into your My Chart account at [email or web address]. You can enter X711 in the "Health Library" [facility] box. Not on Aruspexhart? Review the MyChart section of your After Visit Summary for directions on ho w to sign up. Current as of: February 18, 2018 Content Version: 11.9 5402-0090 No.1 Traveller. Care instructions adapted under license by [facility] [employer]. If you have questions about a medical condition or this instr uction, always ask your healthcare professional. No.[employer] disclaims any frederic anty or liability for your use of this information. documented in this encounter Progress Notes Jaz Erazo, KATHY - 05/28/2018 3:15 PM PSTNST: 23 y.o. at 32w1d weeks [facility]. Indications for monitoring: GDM on metformin - patient will be transitioning to ins ulin. Pt states will not be able to keep GDM review/insulin teaching with RD at [facility] on Friday or M . Per Dr. Luke patient should plan to continue metformin use, peanut picker insulin o alicia the weekend and bring it to clinic for appointment with nurse Friday. Insulin t eaching will be done at that time. Elizabet reports she hates needles but is happy that the doctor has ordered an insulin pen. She has other family members with DM so has viewed inje ctions given. States understanding to call [facility] GDM team to reschedule visit, she should cont inue to see them as well. FHT: Baseline FHR 125, moderate variability, 15 x 15 accelerations, and no decelerations. TOCO: Two contractions noted in 20 minutes, rated at 0/10 on pain scale by patient. Patien t feels tightness with contractions, denies pain or menstrual type cramping. Reactive NST reviewed by Dr. Luke. Next appointment 06/01/18 at 7:45 am for NST an d insulin instruction with nurse. Dulce Maria Elaine MD - 05/28/2018 3:15 PM PSTS: Elizabet is a at 32w1d who presents today for a routine OB visit. She denies any contractions. She has good movement. Her fasting blood sugars are elevated O: General: NAD Abdomen: Soft, gravid. Psych: Appropriate mood and affect A: Elizabet is a at 32w1d who presents today for a routine OB visit. P: She is unable to take time off of work to learn how to give herself injections on Friday. She has an NST on Friday where our nurses will teach her how to give herself insulin. She w ill continue to take her Metformin for now. Follow up on Friday to review sugars and NST. Valorie Anthony MA - 05/28/2018 3:15 PM PSTPt requests refill on her diabetic supplies. Electronically sig cb by Valorie Berrios MA at 06/01/2018 9:59 AM PSTdocumented in this encounter Plan of Treatment +------+ +--------+ + + | Name | Type | Priori | Associated Diagnoses | Order Schedule | | | | ty | | | +------+ +--------+ + + | NST | Procedures | Routin | Gestational | 1-2 times per week | | | | e | diabetes mellitus | for 20 Occurrences | | | | | (GDM) in second | starting 05/28/2018 | | | | | trimester controlled | until 02/26/2019, 12 | | | | | on oral | completed | | | | | hypoglycemic drug | | | | | | High-risk | | | | | | in third trimester | | +------+ +--------+ + + documented as of this encounter Procedures + +--------+ + + + | Procedure Name | Priori | Date/Time | Associated Diagnosis | Comments | | | ty | | | | + +--------+ + + + | NST | Routin | 05/28/2018 | Gestational | Results for this | [...] + documented in this encounter Results NST (07/13/2018) + + + + + + | Component | Value | Ref Range | Performed | Pathologist | | | | | At | Signature | + + + + + + | PHYSICIAN | REACTIVE | | | | | INTERP NST | | | | | + + + + + + NST (07/09/2018) + + + + + + | Component | Value | Ref Range | Performed | Pathologist | | | | | At | Signature | + + + + + + | PHYSICIAN | Reactive | | | | | INTERP NST | | | | | + + + + + + NST (07/06/2018) + + + + + + | Component | Value | Ref Range | Performed | Pathologist | | | | | At | Signature | + + + + + + | PHYSICIAN | REACTIVE | | | | | INTERP NST | | | | | + + + + + + NST (07/02/2018) + + + + + + | Component | Value | Ref Range | Performed | Pathologist | | | | | At | Signature | + + + + + + | PHYSICIAN | REACTIVE | | | | | INTERP NST | | | | | + + + + + + NST (06/25/2018) + + + + + + | Component | Value | Ref Range | Performed | Pathologist | | | | | At | Signature | + + + + + + | PHYSICIAN | Reactive | | | | | INTERP NST | | | | | + + + + + + NST (06/22/2018) + + + + + + | Component | Value | Ref Range | Performed | Pathologist | | | | | At | Signature | + + + + + + | PHYSICIAN | REACTIVE | | | | | INTERP NST | | | | | + + + + + + NST (06/15/2018) + + + + + + | Component | Value | Ref Range | Performed | Pathologist | | | | | At | Signature | + + + + + + | PHYSICIAN | REACTIVE | | | | | INTERP NST | | | | | + + + + + + NST (06/11/2018) + + + + + + | Component | Value | Ref Range | Performed | Pathologist | | | | | At | Signature | + + + + + + | PHYSICIAN | Reactive | | | | | INTERP NST | | | | | + + + + + + NST (06/08/2018) + + + + + + | Component | Value | Ref Range | Performed | Pathologist | | | | | At | Signature | + + + + + + | PHYSICIAN | REACTIVE | | | | | INTERP NST | | | | | + + + + + + NST (06/04/2018) + + + + + + | Component | Value | Ref Range | Performed | Pathologist | | | | | At | Signature | + + + + + + | PHYSICIAN | Reactive | | | | | INTERP NST | | | | | + + + + + + NST (06/01/2018) + + + + + + | Component | Value | Ref Range | Performed | Pathologist | | | | | At | Signature | + + + + + + | PHYSICIAN | REACTIVE | | | | | INTERP NST | | | | | + + + + + + NST (05/28/2018) + + + + + + | [...] controlled on oral | | hypoglycemic drug - Primary | + + | High-risk in third trimester | + + documented in this encounter
--- OUTSIDE RECORDS SUMMARY | ~2019-05-12 | XMS | Encounter Summary ---
Demographics + + + | Address | [address] | | | [place] [address] | + + + | Home Phone [...] Author + + + | Author | [facility] | + + + | Organization | [facility] | + + + | Address | Unknown | + + + | Phone | Unavailable | + + + Support + + + + + | Name | Relationship | Address | Phone | + + + + + | Anderson Rose | ECON | [address] | | | [place] | | [place] [address] | | + + + + + | Gracie Turcios | ECON | [place] | | + + + + + Care Team Providers + +------+ + | Care Preschool Teacher Name | Role | Phone | + +------+ + | Anisha Rivera | PCP | | + +------+ + Reason for Visit + + + | Reason | Comments | + + + | Obstetric US Scan | JUANI | + + + Encounter Details +--------+ + + + + | Date | Type | Department | Care Team | Description | +--------+ + + + + | 06/03/ | | [place] | [place], | Obstetric US Scan | | 2018 | | [facility] [address] | MD Leonela [address] | (JUANI) | | | | [address] | [address] | | | | | [address] [place], [place] | [place], [place] | | | | | [address] | [address] | | | | | [phone] | [phone] | | | | | | | [...] + + + | Blood Pressure | 108/68 | 06/03/2018 4:20 PM | | | | | PST [...] + + + + | Weight | 120.7 kg (266 lb) | 06/03/2018 4:20 PM | | | | | PST | | + + + + + | Height | - | - | | + + + + + | Body Mass Index | 48.64 | 03/16/2018 3:13 PM | | | | | PDT | | + + + + + documented in this encounter Patient Instructions Patient Instructions Carlos Carmona MA - 06/03/2018 4:30 PM PSTI have sent in needles for y ou to pickling operator from your pharmacy. Please make sure your bring your meter in on Friday so we can download you meter and see if you need to adjust your insulin. Visit - Week 32 Please read chapters [...] recent studies indicate that the unborn ba biveena of older mothers may be at a [...] against pertussis infection. Follow-up care is a emerson part of [...] Hydrocortisone. Ask your doctor about taking an qyba-trd-cothdah stool softener. Consider Experts recommend that women [...] may help to think about your personal, shinto, and fami ly traditions. You get to [...] log into your My Chart account at [email or web address]. You can enter [email or web address] in the "[employer] Library" [facility] box. Not on [employer]? Review the MyChart section of your After Visit Summary for directions on ho w to sign up. Current as of: February 18, 2018 Content Version: .9 2780-0298 [employer] Care instructions adapted under license by [facility] [employer]. If you have questions about a medical condition or this instr uction, always ask your healthcare professional. [employer] disclaims any frederic anty or liability for your use of this information. documented in this encounter Progress Notes Leonela Luke MD - 06/03/2018 4:30 PM PSTHistory: 23 y.o. at 33w0d gestati on presenting for an JUANI secondary to GDM and BMI 44. Findings: Espinoza Q2-5.15 Q3- 5.45 Q4- 6.53 JUANI 17.13 cm Impression: 23 y.o. at 33w0d gestation with normal JUANI Recommendations: Follow up as scheduled. Performed and read by Leonela Luke MD. Type of ultrasound: ABDOMINAL. Patient states she started her insulin on Friday. She did not have needles for her pens, bu t the pharmacist gave her some so she could start using the pens. Rx for needles sent to her pharmacy. Fasting sugar 90 and 93 this week. Will re-evaluate on Friday when patient returns for NST . Dolly Clayton MA - 06/03/2018 4:30 PM PSTDenies concerns, JUANI today. Dolly Lacy MA documented in this enco unter Plan of Treatment Not on filedocumented as of this encounter Procedures + +--------+ + + + | Procedure Name | Priori | Date/Time | Associated Diagnosis | Comments | | | ty | | | | + +--------+ + + + | CLINIC OB ONE OR | Routin | 06/03/2018 | Gestational | Results for this | | MORE FETUSES LIMITED | e | | diabetes mellitus | procedure are in the | | | | | (GDM) in second | results section. | | | | | trimester controlled | | | | | | on oral | | | | | | hypoglycemic drug | | | | | | BMI 40.0-44.9, adult | | | | | | (HCC) High-risk | | | | | | in third | | | | | | trimester | | + +--------+ + + + documented in this encounter Results [facility] OB ONE OR MORE FETUSES LIMITED (06/03/2018) + + + | Impressions | Performed At | + + + | History: 23 y.o. at 33w0d gestation presenting for an JUANI | [facility] | | secondary to GDM and BMI 44. Findings: Espinoza Q2-5.15 Q3- | CARE TESTING | | 5.45 Q4- 6.53 JUANI 17.13 cm Impression: 23 y.o. | | | at 33w0d gestation with normal JUANI Recommendations: Follow up as | | | scheduled. Performed and read by Leonela Luke MD. Type | | | of ultrasound: ABDOMINAL. | | + + + + +---------+ [...] drug - Primary | + + | BMI 40.0-44.9, adult (HCC) Body Mass Index 40.0-44.9, adult | + + | High-risk in third trimester | + + documented in this encounter
--- OUTSIDE RECORDS SUMMARY | ~2019-05-12 | XMS | Encounter Summary ---
Demographics + + + | Address | [address] | | | [place] [address] | + + + | Home Phone [...] Author + + + | Author | [facility] | + + + | Organization | [facility] | + + + | Address | Unknown | + + + | Phone | Unavailable | + + + Support + + + + + | Name | Relationship | Address | Phone | + + + + + | Anderson Rose | ECON | [address] | | | [place] | | [place] [address] | | + + + + + | Gracie Bullock | ECON | [place] | | + + + + + Care Team Providers + +------+ + | Care Roll On Man Name | Role | Phone | + +------+ + | Anisha Rivera | PCP | | + +------+ + Encounter Details +--------+ + + + + | Date | Type | Department | Care Team | Description | +--------+ + + + + | 09/28/ | Hospital | Diagnostic Imaging | Mame Taylor MD | | | 2018 | Encounter | at [facility] | [address] | | | | | [address] | [place] [address] | | | | | [place], [place] | [phone] | | | | | [address] | | | | | | [phone] | | | +--------+ + + + [...] + + documented as of this encounter Medications at Time of Discharge + + + +---------+ + + | Medication | Sig | Dispensed | Refills | Start | End Date | | | | | | Date | | + + + +---------+ + + | ethinyl | Apply 1 patch to | 3 patch | 11 | 03/14/20 | | | estradiol-norelgestr | skin every seven | | | 19 | | | omin 150-35 mcg/24 | days. Apply 1 patch | | | | | | hr transdermal patch | every 7 days for 3 | | | | | | weekly | weeks, then take 7 | | | | | | | days off, then apply | | | | | | | a new patch | | | | | + + + +---------+ + + | cefDINir 300 mg | Take 1 capsule by | 20 | 0 | 09/29/19 | | | oral capsule | mouth two times | capsule | | 19 | 9 | | | daily for 10 days. | | | | | + + + +---------+ + + documented as of this encounter Plan of Treatment Not on filedocumented as of this encounter Procedures + +--------+ + + + | Procedure Name | Priori | Date/Time | Associated Diagnosis | Comments | | | ty | | | | + +--------+ + + + | X-RAY CHEST 2 VIEW | Routin | 09/28/2018 | Acute | Results for this | | | e | 2:11 PM | non-recurrent | procedure are in the | | | | PDT | maxillary sinusitis | results section. | | | | | URI with cough and | | | | | | congestion | | + +--------+ + + + documented in this encounter Results X-RAY CHEST 2 VIEW (09/28/2018 2:11 PM PDT) + + | Specimen | + + | | + + + + + | Narrative | Performed At | + + + | [address] [place] [address] | [facility] | | [place] [address] | DEPARTMENT | | [phone] Name: FRANK BULLOCK Phys: | RADIOLOGY | | MAME TAYLOR : 1995 Sex: F CSN: | | | [id number] MR# [id number] Exam Date: 09/28/2018 | | | EXAM: [...] Transcribed Date/Time: | | | 09/28/2018 15:22 Manager Rfid: FLUENCY | | + + + + + | Procedure Note | + + | Interface, Radiology Results - 09/28/2018 3:27 PM PDT [address] | | [address] [place] [address] | | Name: FRANK BULLOCK Phys: MAME TAYLOR : 1995 Sex: F | | CSN: [id number] MR# [id number] Exam Date: 09/28/2018 EXAM:TWO VIEW CHEST XRAY [...] MD Transcribed Date/Time: | | 09/28/2018 15:22Transcriptionist: FLUENCY | | Exam Date: 09/28/2018 | | [...] | | |Transcribed Date/Time: 09/28/2018 15:22 | |Manager Rfid: FLUENCY | | | | | | | + + + +---------+ + + | Performing | Address | City/State/[facility] | Phone Number | | Organization | | | | + +---------+ + + | [facility]MENT [facility] | | | | | RADIOLOGY | | | | + +---------+ + + documented in this encounter Visit Diagnoses + + | Diagnosis | + + | Acute non-recurrent maxillary sinusitis | + + | URI with cough and congestion | + + documented in this encounter"
--- OUTSIDE RECORDS SUMMARY | ~2019-05-12 | XMS | Encounter Summary ---
Demographics + + + | Address | [address] | | | [place] [address] | + + + | Home Phone | | + + + | Preferred Language | Unknown | + + + | Marital Status | Single | + + + | Anabaptism Affiliation | NRP | + + + | Race | White | + + + | Ethnic Group | Not or | + + + Author + + + | Author | [facility] | + + + | Organization | [facility] | + + + | Address | Unknown | + + + | Phone | Unavailable | + + + Support + + + + + | Name | Relationship | Address | Phone | + + + + + | Anderson Rose | ECON | [address] | | | [place] | | [place] [address] | | + + + + + | Gracie Turcios | ECON | [place] | | + + + + + Care Team Providers + +------+ + | Care Flight Control Manager Name | Role | Phone | + +------+ + | Anisha Rivera | PCP | | + +------+ + Encounter Details +--------+ + + + + | Date | Type | Department | Care Team | Description | +--------+ + + + + | 12/01/ | Abstract | [facility] | Natasha Jones, | | | 2018 | | [facility] [address] | [address] | | | | | [address] [place], [place] | | | | | [address] [place], [place] | [address] | | | | | [address] | [phone] | | | | | [phone] | | | +--------+ + + + [...] + documented as of this encounter Progress Jordan Sepulveda RN - 12/01/2017 3:30 PM PDTChart abstraction completed in preparation f or OB Intake. Used Morning Tec to gather patient information for the chart, to be confirmed with t he patient at the time of visit. documented in this encounter Plan of Treatment Not on filedocumented as of this encounter Visit Diagnoses + + | Diagnosis | + + | Encounter for supervision of other normal , first trimester | + + documented in this encounter"
--- OUTSIDE RECORDS SUMMARY | ~2019-05-12 | XMS | Encounter Summary ---
Demographics + + + | Address | [address] | | | [place] [address] | + + + | Home Phone [...] | | [place] | | [place] [address] | | + + + + + | Gracie Turcios | ECON | [place] | | + + + + + Care Team Providers + +------+ + | Care Health Records Technology Teacher Name | Role | Phone | [...] + + + | 03/05/ | | [place] | | Obstetric US Scan | | 2018 | | [facility] [address] | | | | | | [address] [facility] | | | | | | [address] [place], [place] | | | | | | [address] | | | | | | [phone] | | | +--------+ + + + [...] documented as of this encounter Progress Notes Carlos Carmona MA - 03/05/2018 8:00 AM PDTUltrasound exam performed at [facility] and will be read/resulted at [facility]. documented in this encou nter Plan of Treatment Not on filedocumented as of this encounter Procedures + +--------+ + + + | Procedure Name | Priori | Date/Time | Associated Diagnosis | Comments | | | ty | | | | + +--------+ + + + | [facility] OB >=14 | Routin | 03/05/2018 | High-risk | Results for this | | WEEKS SINGLE FETUS - | e | 8:03 AM | in first | procedure are in the | | EXTERNAL READ | | PDT | trimester Diet | results section. | | | | | controlled | | | | | | gestational diabetes | | | | | | mellitus (GDM) in | | | | | | second trimester | | + +--------+ + + + documented in this encounter Results [facility] OB >=14 WEEKS SINGLE FETUS - EXTERNAL READ (03/05/2018 8:03 AM PDT) + + | Specimen | + + | | + + + + + | Narrative | Performed At | + + + | Ultrasound exam performed at [facility] and will | [facility] | | be read/resulted at [facility]. | DEPARTMENT OF | | | RADIOLOGY | + + + + +---------+ + + | Performing | Address | City/State/Zipcode | Phone Number | | Organization | | | | + +---------+ + + | [facility] | | | | | RADIOLOGY | | | | + +---------+ + + documented in this encounter Visit Diagnoses + + | Diagnosis | + + | High-risk in first trimester - Primary | + + | Diet controlled gestational diabetes mellitus (GDM) in second trimester | + + documented in this encounter"
--- OUTSIDE RECORDS SUMMARY | ~2019-05-12 | XMS | Encounter Summary ---
Demographics + + + | Address | [address] | | | [place] [address] | + + + | Home Phone | | + + + | Preferred Language | Unknown | + + + | Marital Status | Single | + + + | Samaritan Affiliation | NRP | + + + [...] | | [place] | | [place] [address] | | + + + + + | Gracie Turcios | ECON | [place] | | + + + + + Care Team Providers + +------+ + | Care Construction Safety Manager Name | Role | Phone | + +------+ + | Anisha Rivera | PCP | | + +------+ + Encounter Details +--------+ + + + + | Date | Type | Department | Care Team | Description | +--------+ + + + + | 11/08/ | Telephone | [place] [place] | [place], | | | 2018 | | [facility] [address] | MD Leonela [address] | | | | | E | | | | | | [address] [place], [place] | [place], [place] | | | | | [address] | [address] | | | | | [phone] | [phone] | | | | | | | [...]
--- OUTSIDE RECORDS SUMMARY | ~2019-05-12 | XMS | Encounter Summary ---
Demographics + + + | Address | [address] | | | [place] [address] | + + + | Home Phone [...] | | [place] | | [place] [address] | | + + + + + | Gracie Turcios | ECON | [place] | | + + + + + Care Team Providers + +------+ + | Care Strip Winder Name | Role | Phone | + +------+ + | Anisha Rivera | PCP | | + +------+ + Encounter Details +--------+------+ + + + | Date | Type | Department | Care Team | Description | +--------+------+ + + + | 01/14/ | Lab | Laboratory at | | Abnormal GTT | | 2017 | | [facility] | | (glucose tolerance | | | | Center [address] | | test) | | | | [address] [place], [place] | | | | | | [address] | | | +--------+------+ + + + [...] | + +--------+ + + + | 3HR GLU ALAYNA TEST-3HR | Routin | 01/14/2018 | Abnormal GTT | Results for this | | | e | 7:07 PM | (glucose tolerance | procedure are in the | | | | PDT | test) | results section. | + +--------+ + + + | 3HR GLU ALAYNA TEST-2HR | Routin | 01/14/2018 | Abnormal GTT | Results for this | | | e | 6:02 PM | (glucose tolerance | procedure are in the | | | | PDT | test) | results section. | + +--------+ + + + | 3HR GLU ALAYNA TEST-1HR | Routin | 01/14/2018 | Abnormal GTT | Results for this | | | e | 5:05 PM | (glucose tolerance | procedure are in the | | | | PDT | test) | results section. | + +--------+ + + + | 3HR GLU ALAYNA | Routin | 01/14/2018 | Abnormal GTT | Results for this | | TEST-FASTING | e | 3:38 PM | (glucose tolerance | procedure are in the | | | | PDT | test) | results section. | + +--------+ + + + | GLUCOSE TOLERANCE | Routin | 01/14/2018 | Abnormal GTT | Results for this | | TEST, 3 HOUR | e | 3:38 PM | (glucose tolerance | procedure are in the | | | | PDT | test) | results section. | + +--------+ + + + documented in this encounter Results 3HR GLU ALAYNA TEST-3HR (01/14/2018 7:07 PM PDT) + +---------+ + + + | Component | Value | Ref Range | Performed | Pathologist | | | | | At | Signature | + +---------+ + + + | 3 HOUR | 162 (H) | 60 - 140 mg/dL | [facility] | | | GLUCOSE-3GT | | | A MEDICAL | | | | | | CENTER | | + +---------+ + + + + + | Specimen | + + | Blood - Blood | | (substance) | + + + + + + + | Performing | Address | City/State/Zipcode | Phone Number | | Organization | | | | + + + + + | [facility] | And | [place] [address] | [phone] | | MEDICAL CENTER | [address] | | | + + + + + 3HR GLU ALAYNA TEST-2HR (01/14/2018 6:02 PM PDT) + +---------+ + + + | Component | Value | Ref Range | Performed | Pathologist | | | | | At | Signature | + +---------+ + + + | 2 HOUR | 219 (H) | 60 - 153 mg/dL | [facility] | | | GLUCOSE-3GT | | | A MEDICAL | | [...] + + | [facility] | [address] | [place] [address] | [phone] | | MEDICAL CENTER | Streets | | | + + + + + 3HR GLU ALAYNA TEST-1HR (01/14/2018 5:05 PM PDT) + +-------+ + + + | Component | Value | Ref Range | Performed | Pathologist | | | | | At | Signature | + +-------+ + + + | 1 HOUR | 167 | 60 - 180 mg/dL | [facility] | | | GLUCOSE-3GT | | | A MEDICAL | | [...] + + | [facility] | [address] | [place] [address] | [phone] | | MEDICAL CENTER | Streets | | | + + + + + 3HR GLU ALAYNA TEST-FASTING (01/14/2018 3:38 PM PDT) + +-------+ + + + | Component | Value | Ref Range | Performed | Pathologist | | | | | At | Signature | + +-------+ + + + | FASTING | 84 | 60 - 92 mg/dL | [facility] | | | GLUCOSE-3GT | | | A MEDICAL | | [...] + + + + | [facility] | [place] | [place] [address] | [phone] | | [facility] | [facility] | | | + + + + + documented in this encounter Visit Diagnoses + + | Diagnosis | + + | Abnormal GTT (glucose tolerance test) Impaired glucose tolerance test | + + documented in this encounter"
--- OUTSIDE RECORDS SUMMARY | ~2019-05-12 | XMS | Encounter Summary ---
Demographics + + + | Address | [address] | | | [place] [address] | + + + | Home Phone [...] | | [place] | | [place] [address] | | + + + + + | Gracie Turcios | ECON | АНДРЕЙCHARITYEL | | + + + + + Care Team Providers + +------+ + | Care Neck Band Operator Name | Role | Phone | + +------+ + | Anisha Rivera | PCP | | + +------+ + Reason for Visit + + + | Reason | Comments | + + + | Cold Symptoms | was seen 4/17/17 with cold symptoms x 3 days. not improving. | | | slight improvement in energy level. cough ing fits to the point | | | of vomiting, tescolemanon tomas not helpful.difficulty breathing, | | | chest pressure | + + + Encounter Details +--------+---------+ + + + | Date | Type | Department | Care Team | Description | +--------+---------+ + + + | 10/08/ | Office | [facility] | Constance Posadas | Bronchospasm with | | 2016 | Visit | Medicine [address] | LINO Malhotra [address] | bronchitis, acute | | | | [place], | [place], [place] | (Primary Dx) | | | | [place] [address] | [address] | | | | | [phone] | [phone] | | | | | | | [...] + + + | Blood Pressure | 108/64 | 10/08/2016 2:46 PM | | | | | PDT | | + + + + + | Pulse | 95 | 10/08/2016 2:46 PM | | | | | PDT | | + + + + + | Temperature | 37.1 C (98.8 F) | 10/08/2016 2:46 PM | | | | | PDT | | + + + + + | Respiratory Rate | - | - | | + + + + + | Oxygen Saturation | 97% | 10/08/2016 2:46 PM | | | | | PDT | | + + + + + | Inhaled Oxygen | - | - | | | Concentration | | | | + + + + + | Weight | 106.1 kg (234 lb) | 10/08/2016 2:46 PM | | | | | PDT | | + + + + + | Height | 160 cm (5' 3") | 10/08/2016 2:46 PM | | | | | PDT | | + + + + + | Body Mass Index | 41.45 | 10/08/2016 2:46 PM | | | | | PDT | | + + + + + documented in this encounter Patient Instructions Patient Instructions Constance Posadas PA - 10/08/2016 3:00 PM PDT* I've prescribed you and albuterol inhaler to use as needed and prescribed for coughing fits, wheezing, and short ness of breath. * I have also prescribed you a steroid inhaler to take twice daily while symptoms last. Be sure to rinse your mouth out with water and spit this water out after each use. * You may also consider taking daily zyrtec, kev or claritin to help with the allergy r elated symptoms. * Use a Netti Pot Morning and night (you can pick one up at the pharmacy) * Steam as needed for cough and chest congestion (e.g., from shower or bath) to loosen secr etions. * Keep a humidifier in your room at night. * Apply warm facial packs for 5-10 minutes 3-4 times a day to promote drainage if congested * Do salt water gargles as needed for sore throat * You can elevate the head of your bed to promote sinus drainage * Drink plenty of clear liquids * Eat plenty of colorful fruits and veggies. * Get plenty of rest * Avoid cigarette smoke At this time you do not need antibiotics as there is no evidence of bacterial infection tod ay on your exam and antibiotics do not prevent bacterial complications such as pneumonia. Follow up with your regular doctor if your symptoms are not improving after 4 days. Be seen immediately if you develop difficulty breathing or high fever. documented in this encounter Progress Notes Constance Posadas PA - 10/08/2016 3:00 PM PDT [facility] [address] [place] [address] Patient: Elizabet Turcios : 1995 PCP: ARTHUR Waters CHIEF COMPLAINT Chief Complaint Patient presents with Cold Symptoms was seen 09/30/16 with cold symptoms x 3 days. not improving. slight improvement in energy level. cough ing fits to the point of vomiting, tessalon perles not helpful.difficulty anup thing, chest pressure HPI Elizabet Turcios is a 21 y.o. female who presents with cough, chest tightness, and hoarse voice x 10 days. There has been no fever. Other symptoms include: mild ST worse with coughing, coughing fits, fatigue, wheezing. She's also vomited a couple of times with the c oughing fits. Patient has no history of asthma or other respiratory problems. She did try her boyfriends albuterol inhaler last night and that helped some. She has a hx of allergic rhinitis and ecz bhargav. Treatments provided prior to arrival: Tessalon Perles, vicks, cough drops, Emergen-C. Sick contacts or recent exposures: boyfriend with similar symptoms. REVIEW OF SYSTEMS Review of Systems Constitutional: Positive for fatigue. Negative for fever. HENT: Positive for congestion and sore throat. Respiratory: Positive for cough, chest tightness and wheezing. Gastrointestinal: Positive for vomiting. Negative for abdominal pain, diarrhea and nausea. Genitourinary: Negative for dysuria. Neurological: Positive for headaches. Negative for syncope, weakness and numbness. PROBLEM LIST There are no active problems to display for this patient. CURRENT MEDICATIONS Current Medications Patient is Taking: Benzonatate 100 Mg Capsule - 1-2 capsules three times daily as needed for cough. Triamcinolone Acetonide 0.1 % Topical Ointment - Albuterol Sulfate Hfa 90 Mcg/actuation Aerosol Inhaler - Inhale 1-2 puffs by mouth ever y four hours as needed. Beclomethasone Dipropionate 40 Mcg/actuation Aerosol Inhaler - Inhale 2 puffs two times daily. Reviewed. ALLERGIES Allergies Allergen Reactions Peanut Anaphylaxis Lactose Stomach Upset Reviewed, no change. PHYSICAL EXAM VITAL SIGNS: BP 108/64 | Pulse 95 | Temp (Src) 37.1 C (98.8 F) (Oral) | Ht 1.6 m (5' 3" ) | Wt 106.1 kg (234 lb) | SpO2 97% | BMI 41.45 kg/(m^2) General: Well developed, well nourished 21 y.o. female in no acute distress. HENT: Atraumatic. No deformity, ecchymosis, erythema or tenderness of head and face. Bila teral external ears normal, TMs clear bilaterally without bulging or erythema. Nares patent bilaterally. No nasal discharge. Oropharynx clear, moist mucous membranes. No oral lesions, exudates or asymmetry. Dentition in good repair. Eyes: PERRL, EOMI, Conjunctiva normal, No discharge. Anicteric. Neck: Nontender, supple, no lymphadenopathy . Full and symmetric range of motion. Thorax & Lungs: + Wheezing and rhonchi in posterior bases with forced expiration. Otherwis e clear to auscultation bilaterally with equal breath sounds. No respiratory distress. Ches t wall non-tender. Cardiovascular: Normal rate and rhythm without murmur, rub or gallop. Pulses 2+ and equal. Skin: Warm, Dry, No erythema or rash. Back: Non tender, No CVA tenderness. Neurologic: Alert & oriented x 3/3, No gross cranial nerve or extremity focal sensorimotor deficits noted. Psychiatric: Affect, grooming, dress, and thought content appropriate. LABS No results found for this or any previous visit (from the past 4 hour(s)). Orders Placed This Encounter albuterol 90 mcg/actuation inhalation HFA aerosol inhaler beclomethasone (QVAR) 40 mcg/actuation inhalation aerosol ASSESSMENT & PLAN 1. Bronchospasm with bronchitis, acute This 21 yo female with hx of allergic rhinitis, eczema and recent URI comes in today with o ngoing coughing fits, wheezing and chest tightness. Other symptoms have started to improve. There is wheezing with forced expiration bilaterally. The etiology of the patient's symptom s appears viral this time with associated bronchospasm. I've started her on albuterol and QV AR MDIs and she will f/u if she is not experiencing improvement over the ext 4 days. The pat ient is nontoxic and looks well clinically. Currently there is no significant shortness of breath, dysphagia, oropharyngeal asymmetry, or other red flags in regards to symptoms or phy sical exam. Follow up: Return in about 4 days (around 10/12/2016), or if symptoms worsen or fail to impr ove. The patient voices her understanding, agreement, and ability with these discharge instructi ons. documented in this encounter Plan of Treatment Not on filedocumented as of this encounter Visit Diagnoses + + | Diagnosis | + + | Bronchospasm with bronchitis, acute - Primary Acute bronchitis | + + documented in this encounter
--- OUTSIDE RECORDS SUMMARY | ~2019-05-12 | XMS | Encounter Summary ---
Demographics + + + | Address | [address] | | | [place] [address] | + + + | Home Phone | | + + + | Preferred Language | Unknown | + + + | Marital Status | Single | + + + | Episcopalian Affiliation | NRP | + + + | Race | White | + + + | Ethnic Group | Not or | + + + Author + + + | Author | [facility] | + + + | Organization | [facility] | + + + | Address | Unknown | + + + | Phone | Unavailable | + + + Support + + + + + | Name | Relationship | Address | Phone | + + + + + | Anderson Rose | ECON | [address] | | | [place] | | [place] [address] | | + + + + + | Gracie Turcios | ECON | [place] | | + + + + + Care Team Providers + +------+ + | Care Curb Worker Name | Role | Phone | + +------+ + | Anisha Rivera | PCP | | + +------+ + Reason for Visit + + + | Reason | Comments | + + + | Gestational Diabetes | | + + + Consultation (Routine) +--------+--------+ + + + + | Status | Reason | Specialty | Diagnoses / | Referred By | Referred To | | | | | Procedures | Contact | Contact | +--------+--------+ + + + + | Closed | | Endocrinology | Diagnoses | [facility], | [facility] | | | | , Diabetes & | Gestational | Natasha Mckinnon MD | Diabetes Educ | | | | Metabolism | diabetes | [address] | [address] | | | | | mellitus | , | [address] | | | | | (GDM) in | [address] | [place], | | | | | first | [place], [place] | [place] [address] | | | | | trimester, | [address] | Phone: | | | | | gestational | Phone: | [phone] | | | | | diabetes | [phone] | Fax: | | | | | method of | Fax: | [phone] | | | | | control | [phone] | | | | | | unspecified | | | | | | | Procedures | | | | | | | CONSULT TO | | | | | | | DIABETES | | | +--------+--------+ + + + + Encounter Details +--------+ + + + + | Date | Type | Department | Care Team | Description | +--------+ + + + + | 01/29/ | Clinical | Nutrition at | [facility], | Gestational Diabetes | | 2018 | Support | [place] [address] | Natalia, [address] | | | | Staff | [address]ryn [address] | [facility] | | | | | [place], [place] | [place], [place] | | | | | [address] | [address] | | | | | [phone] | | | +--------+ + + + [...] + + documented as of this encounter Patient Instructions Patient Instructions Natalia Madrigal RD - 01/29/2018 8:30 AM PDTDiabetes Education In structions: Thank you for meeting with the hematology nurse educator today. These are the healthy lifestyle goa ls that we set today to help control your blood sugars. 1. Meal plan: 15-30 grams carbs at breakfast plus protein 45-60 grams carbs at lunch plus protein 45-60 grams carbs at dinner plus protein Have a snack between each meal keeping carb intake 15-30 grams Including 2 fruits a day in your diet and increase vegetables- include 1-2 cups a day. 2. Stop sugared foods and drinks. Continue to drink water. Change to sugar free coffee crea liudmila. 3. Reduce fast fast in your diet- prepare more meals at home. Use menus for meal ideas. We will review these goals at your next diabetes education visit. NATALIA MADRIGAL RD NUTRITION AT [address] [phone] My Diabetes Self-Management Support Plan Let your educator know if you need help accessing the websites. Emotional Support ___National Sells on Mental Illness (DEBRA) (Depression, bipolar and other support) 307.245.1398; www.debra.org ___Depression & Bipolar Support Sells- [phone]-www.dbsalliance.org ___Anxiety &Depression Association of [place] (find local therapist by zip code at www.ada a.org) National phone number [phone] ___National Suicide Prevention Lifeline- [phone] Weight Management ___Mind & Body Medicine Weight Loss Support Group- of every month-2nd floor [facility]. [phone] ___Weight Watchers. [phone]. wwwOKpanda ___Over eaters Anonymous [phone] (support group)- www.oa.org ___TOPS (Taking Off Pounds Sensibly) [place] [phone] ___One [facility] [phone] (steps to wellness, offered in Stateless and Uzbek) www.basico.comeaTekTrak.org https://oa.org www.theQuibberformindfuleating.org Exercise ___[facility] Fitness Center. [phone] ___[facility] Medical Exercise Program. [phone] ___Curves -[phone]- wwwMimetogen Pharmaceuticals.Element ID ___Soul to Soul Fitness [place] [phone] ___[facility], [address] [place]. [phone] ___[facility] Walking Group- [phone] ___Exercise videos at library or Youtube exercise videos ___OPB TV- Sit and Be Fit; Gentle yoga/stretching ___ [employer] walking 4.5 laps around the inside perimeter = 1 mile ___Other Diabetes Support Group ___ Type 1 Diabetes support group -contact [email or web address] [email or web address] for meeting dates and location ___ Weight Loss Support Group [facility] 2nd Floor, of each month 12-1 pm, free- just show up ___Diabetes, gestational, and type 2 prevention websites www.diabetes.org (tong[place] diabetes association) www.niddk.nih.gov/health-information/diabetes#topics www.cdc.gov/diabetes www.diabetes.niddk.nih.gov www.ndep.nih.gov www.eatright.org www.dlife.Element ID www.calorie.com www.tracker.diabetes.org www.steviaextractintheraw.Element ID www.mayoclinic.org pharmaceutical/glucose meter websites Www.nlm.nih.gov/medlineplus/druginformation.html - National Library of Medicine's Herbs & S upplements Stress & Pain Relief ___[facility] Yoga classes. [phone] ___Mind & Body Mindfulness and Breath Work. [phone] ___[facility] Persistant Pain Education Program. [phone] ___Mind & Body Acupuncture Therapy. [phone] ___[facility]. [phone] Gestational Diabetes _X__Mommy Wellness Program. (in [place] [phone] and [place] [phone]) ___www.ncbi.nlm.nih.gov/pubmedhealth/COA8068969 ___www.LLLI.org ([place] league international, breast feeding support) Journals ___Diabetes Forecast- [phone]- www.diabetesforecast.org ___Diabetes Self-Management- [phone]- www.diabetesselSihua Technology.Element ID ___Diabetes Health-www.diabetesselSihua Technology.com Apps ___Calorie Chintan ___Glucose Zeeshan (Free, tracks blood glucose, graphs) ___SparkQuote (Free, inspiring quote for the day) ___My Iztt-i-Zsgub ___My Fitness Pal (free. Track food and exercise intake) ___Go Meals (restaurant nutrition guide) ___Lose It (track food intake and exercise) documented in this encounter Progress Notes Natalia Madrigal RD - 01/29/2018 8:30 AM PDT [facility] Diabetes Education Progress Note Elizabet Turcios is a 22 y.o. female. Diagnosis: GDM Referring Provider: Dr. Jones Time: 60-minutes Visit Type: MNT - New Appointment Type: Individual Education Type: Comprehensive &/or Initial Notes Reason for Visit: Patient with diagnosis of GDM in first trimester. A1C 5.7%. Had OGTT with 2 elevated levels. Patient at 15 weeks gestation. First . Patient has poor nutriti on intake. Diet is avoid of fruits and vegetables. She eats fast food daily at least one barak l a day. Sugar intake is high- ice cream, candy, sugared cereal, popsicles, coffee drinks. P atient reports she does cook. Menus with breakfast, brown bag lunch and dinner ideas reviewe d with patient. She feels fruits and vegetables are too expensive. Reviewed how she can sa ve money by not buying coffee drinks or eating out to afford healthier foods. Recommended sh e get free fresh produce at [employer] on Fridays to supplement her budget. She will wo rk on making her diet healthier. Will f/u in 3 weeks for continued education and support wit h dietary changes. [facility] Diabetes Education - A1C, BP & Weight 01/05/2018 01/07/2018 01/21/2018 Blood Pressure 124/76 112/70 - Patient Weight 241 lbs 243 lbs 244 lbs 13 oz Assessment: 9 Content Areas of DSME/S 01/29/2018 Diabetes Disease & Treatment Process 2 - Needs Review Nutrition Management 2 - Needs Review Physical Activity NC - Not Covered Medications NC - Not Covered Monitoring 3 - Comprehends Education Acute Complications NC - Not Covered Chronic Complications 3 - Comprehends Education Psychosocial Issues NC - Not Covered Health Promotion & Behavior Change 3 - Comprehends Education Individuals Assessed: patient Barriers: Financial CBGS: fastings 88, 81, 80 87, 89 Post prandial: 124, 113, 144, 97, 83 Discussed with patient the importance of continuing to check blood sugars 1 hour post prand ial as her blood sugars will change during her . Education Intervention: Learner: patient Education Materials: Managing Gestational Diabetes Behavioral Goal/Target: Goal/Target chosen by patient/family: Healthy Eating Goal/Target specific: 1. Control my carbohydrate intake by aiming for 1-2 servings at break fast and 3-4 servings at lunch and dinner 2. Increase fruit and vegetables in diet by eating a serving of each each day Progress towards goal/target(s): Healthy Eating N/A Education Plan: Support Plan: [employer]le classes Education Plan: DSMT in 3 weeks Routed to: referring provider Patient Instructions (AVS): 1. Meal plan: 15-30 grams carbs at breakfast plus protein 45-60 grams carbs at lunch plus protein 45-60 grams carbs at dinner plus protein Have a snack between each meal keeping carb intake 15-30 grams Including 2 fruits a day in your diet and increase vegetables- include 1-2 cups a day. 2. Stop sugared foods and drinks. Continue to drink water. Change to sugar free coffee crea liudmila. 3. Reduce fast fast in your diet- prepare more meals at home. Use menus for meal ideas. Natalia Madrigal RD,CDE Diabetes and Nutrition Services at [address], [address] [address] documented in thi s encounter Plan of Treatment Not on filedocumented as of this encounter Visit Diagnoses + + | Diagnosis | + + | Diet controlled gestational diabetes mellitus (GDM) in second trimester | + + documented in this encounter"
--- OUTSIDE RECORDS SUMMARY | ~2019-05-12 | XMS | Encounter Summary ---
Demographics + + + | Address | [address] | | | [place] [address] | + + + | Home Phone | | + + + | Preferred Language | Unknown | + + + | Marital Status | Single | + + + | Sabianist Affiliation | NRP | + + + | Race | White | + + + | Ethnic Group | Not or | + + + Author + + + | Author | [facility] | + + + | Organization | [facility] | + + + | Address | Unknown | + + + | Phone | Unavailable | + + + Support + + + + + | Name | Relationship | Address | Phone | + + + + + | Anderson Rose | ECON | [address] | | | [place] | | [place] [address] | | + + + + + | Gracie Bullock | ECON | [place] | | + + + + + Care Team Providers + +------+ + | Care Lumber Press Operator Name | Role | Phone | + +------+ + | Anisha Rivera | PCP | | + +------+ + Encounter Details +--------+ + + + + | Date | Type | Department | Care Team | Description | +--------+ + + + + | 01/07/ | Outside | Center | [place], | | | 2018 | Referral | at [facility] [address] | MD [address] | | | | Order | [address] | [address] | | | | | Mailcode: PV450 | [facility], [place] | | | | | Physician's Saji | [address] | | | | | [facility] [place] | [phone] | | | | | [address] | | | | | | [phone] | | | +--------+ + + + [...] on filedocumented as of this encounter Results TELEMEDICINE ULTRASOUND (01/07/2018 7:53 AM PDT) + + | Specimen | + + | | + + + + + | Narrative | Performed At | + + + | [facility] | [facility] | | OBSTETRICAL ULTRASOUND REPORT | RADIOLOGY OB US | | | | | Pat. Name: FRANK BULLOCK Pat. No: [id number] | | | Study Date: 01/07/2018 8:13am , Age: 12 1995, 22 | | | Pregnancies: 2, Para 0010 LMP: Unknown GA by | | | US: 12w2d GA Selected: 12w0d (From Known E) ADELINE: | | | 07/22/2018 Referring MD: HEATH VALENZUELA Process Stripper: | | | DEJA FIERRO, FREDY CPT4: 08072 Hist/Ind: | | | Sequential screen Obesity | | | | | | MEASUREMENTS & AGE GROWTH EVALUATION | | | Measurement GA Range Srce %for GA Ratios | | | ----- ---- ------- CRL 5.7 | | | cm 12w2d ([id number]) Hadl CRL 60% GA for sonogram 12w2d | | | ([id number]) based on (CRL) Avg Markers | | | for Chromosomal Abnormality: NT 1.3 mm Heart Rate: 150 bpm | | | | | | | | | EVAL, PLACENTA Heart Rate: 150 bpm | | | Anatomy!Normal!Abnormal!Suboptimal!Prev. Seen!Comments | | | | | | Choroid Plexu! x ! ! ! ! | | | Nasal Bone 1s! x ! ! ! ! | | | Nuchal Transl! x ! ! ! ! | | | Abdominal Wal! x ! ! ! ! | | | Heart ! x ! ! ! | | | ! Stomach 1st ! x ! ! ! | | | ! Bladder 1st ! x ! ! ! | | | ! Upper Extremi! x ! ! ! | | | ! Lower Extremi! x ! ! ! | | | ! | | | | | | CLINICAL SUMMARY Uterus and adnexae: No abnormalities seen. | | | Gestational sac shape/amniotic fluid volume are normal. Ultrasound | | | cannot detect all / abnormalities. Impression: 22 y.o. | | | at 12 0/7 weeks gestation with obesity (BMI 44), presenting | | | for aneuploidy screening. 1. Single living intrauterine | | | with a CRL of 5.65 cm consistent with 12 2/7 weeks gestation. 2. | | | Normal ductus venosus Doppler. 3. The nuchal translucency measures | | | 1.3 mm which is within normal limits for this gestational age. 4. | | | nasal bone is present. Recommendations: 1. The findings of | | | today's US were reviewed with the patient. Following the study, | | | she was sent to the lab to complete the first portion of her | | | sequential screen. 2. The second portion of the sequential screen | | | should be drawn at approximately 16 weeks gestation. 3. | | | anatomic survey at 20 weeks gestation is recommended. Thank you very | | | much for allowing us to help care for your patient. If you have any | | | questions, please feel free to call our 24 hour phone consult number | | | at any time and ask for the perinatologist director of pediatric rehabilitation. [phone] | | | or [phone] KATI LAWSON MD | | | <Electronic Signature> 01/07/2018 09:44am I have personally | | | reviewed the images and, if necessary, edited the report. I agree | | | with the report as now presented. | | + + + + + | Procedure Note | + + | Service Account, Radiant Res In Interface - 01/07/2018 9:46 AM PDT | | [facility] OBSTETRICAL ULTRASOUND | | REPORT Pat. Name: | | FRANK BULLOCK. No: [id number] Date: 01/07/2018 8:13amDOB, | | Age: 13 1995, 22Pregnancies: 2, Para 0010LMP: UnknownGA by US: | | [id number] Selected: 12w0d (From Known E)ADELINE: 07/22/2018Referring MD: | | NICOLAS ANALENESonographer: DEJA FIERRO, RDMSCPT4: [id number]/Ind: | | Sequential screen | | Obesity MEASUREMENT | | S & AGE GROWTH EVALUATIONMeasurement GA Range Srce | | %for GA Ratios ----- ---- ------- CRL | | 5.7 cm 12w2d ([id number]) Hadl CRL 60%GA for sonogram 12w2d ([id number])based on | | (CRL) Avg Markers for Chromosomal Abnormality:NT 1.3 mmFetal Heart | | Rate: 150 | | bpm | | EVAL, PLACENTAFetal Heart Rate: 150 bpmFetal Anatomy!Normal!Abnormal!Suboptimal!Prev. | | Seen!Comments Choro | | id Plexu! x ! ! ! !Nasal Bone 1s! x ! ! ! | | !Nuchal Transl! x ! ! ! !Abdominal Wal! x ! | | ! ! !Heart ! x ! ! ! !Stomach | | 1st ! x ! ! ! !Bladder 1st ! x ! ! ! | | !Upper Extremi! x ! ! ! !Lower Extremi! x ! | | ! ! | | ! CLINICAL | | SUMMARYUterus and adnexae: No abnormalities seen.Gestational sac shape/amniotic fluid | | volume are normal.Ultrasound cannot detect all / abnormalities.Impression: | | 22 y.o. at 12 0/7 weeks gestation with obesity (BMI 44), presenting for | | aneuploidy screening.1. Single living intrauterine with a CRL of 5.65 cm | | consistent with 12 2/7 weeks gestation.2. Normal ductus venosus Doppler.3. The nuchal | | translucency measures 1.3 mm which is within normal limits for this gestational age.4. | | nasal bone is present.Recommendations:1. The findings of today's US were reviewed | | with the patient. Following the study, she was sent to the lab to complete the first | | portion of her sequential screen.2. The second portion of the sequential screen should | | be drawn at approximately 16 weeks gestation. 3. anatomic survey at 20 weeks | | gestation is recommended.Thank you very much for allowing us to help care for your | | patient. If you have any questions, please feel free to call our 24 hour phone consult | | number at any time and ask for the perinatologist director of pediatric rehabilitation. [phone] or | | [phone] LAWSON MD <Electronic Signature> 01/07/2018 | | 09:44amI have personally reviewed the images and, if necessary, edited the report. I | | agree with the report as now presented. | |Lower Extremi! x ! ! ! ! | | | |CLINICAL SUMMARY | |Uterus and adnexae: No abnormalities seen. | |Gestational sac shape/amniotic fluid volume are normal. | |Ultrasound cannot detect all / abnormalities. | |Impression: 22 y.o. at 12 0/7 weeks gestation with obesity | |(BMI 44), presenting for aneuploidy screening. | |1. Single living intrauterine with a CRL of 5.65 cm | |consistent with 12 2/7 weeks gestation. | |2. Normal ductus venosus Doppler. | |3. The nuchal translucency measures 1.3 mm which is within normal | |limits for this gestational age. | |4. nasal bone is present. | |Recommendations: | |1. The findings of today's US were reviewed with the patient. | |Following the study, she was sent to the lab to complete the first | |portion of her sequential screen. | |2. The second portion of the sequential screen should be drawn at | |approximately 16 weeks gestation. | |3. anatomic survey at 20 weeks gestation is recommended. | |Thank you very much for allowing us to help care for your patient. | |If you have any questions, please feel free to call our 24 hour | |phone consult number at any time and ask for the perinatologist on | |call. [phone] or [phone] | |KATI LAWSON MD | | | |<Electronic Signature> 01/07/2018 09:44am | | | | | |I have personally reviewed the images and, if necessary, edited the report. I agree with t he report as now presented. | + + + +---------+ + + | Performing | Address | City/State/Zipcode | Phone Number | | Organization | | | | + +---------+ + + | [facility] | | | | | [place] | | | | + +---------+ + + documented in this encounter Visit Diagnoses + + | Diagnosis | + + | screening for chromosomal anomaly by amniocentesis - Primary Screening for | | chromosomal anomalies by amniocentesis | + + documented in this encounter"
--- OUTSIDE RECORDS SUMMARY | ~2019-05-12 | XMS | Encounter Summary ---
Demographics + + + | Address | [address] | | | [place] [address] | + + + | Home Phone [...] Author + + + | Author | [facility] | + + + | Organization | [facility] | + + + | Address | Unknown | + + + | Phone | Unavailable | + + + Support + + + + + | Name | Relationship | Address | Phone | + + + + + | Anderson Rose | ECON | [address] | | | [place] | | [place] [address] | | + + + + + | Gracie Turcios | ECON | [place] | | + + + + + Care Team Providers + +------+ + | Care Processing Manager Name | Role | Phone | + +------+ + | Anisha Rivera | PCP | | + +------+ + Reason for Visit + + + | Reason | Comments | + + + | care | | + + + Encounter Details +--------+ + + + + | Date | Type | Department | Care Team | Description | +--------+ + + + + | 08/27/ | | [place] | Natsaha Jones, | care | | 2019 | | [facility] [address] [place], [place] | | | | | [address] [place], [place] | [address] | | | | | [address] | [phone] | | | | | [phone] | | | +--------+ + + + [...] + + + | Blood Pressure | 122/80 | 08/27/2018 8:18 AM | | | | | PDT | | + + + + + | Pulse | 97 | 08/27/2018 8:24 AM | | | | | PDT | | + + + + + | Temperature | 37.2 C (98.9 F) | 08/27/2018 8:24 AM | | | | | PDT | | + + + + + | Respiratory Rate | - | - | | + + + + + | Oxygen Saturation | 97% | 08/27/2018 8:24 AM | | | | | PDT | | + + + + + | Inhaled Oxygen | - | - | | | Concentration | | | | + + + + + | Weight | 114.3 kg (252 lb) | 08/27/2018 8:18 AM | | | | | PDT | | + + + + + | Height | - | - | | + + + + + | Body Mass Index | 46.09 | 07/15/2018 8:19 PM | | | | | PST | | + + + + + documented in this encounter Patient Instructions Patient Instructions Natasha Jones MD - 08/27/2018 8:30 AM PDTFormatting of this note m ight be different from the original. Please make sure to complete your glucose tolerance test for diabetes screening in the next 1-2 weeks. Our office will call you with the results. I have sent a prescription for the control patch that you can start now. Remember to use condoms for back up for the first week of using the patch. Your next pap smear is due in December 2020. After Your Delivery (the Period): Care Instructions Your Care Instructions Congratulations on the of your baby. Like , the period can be a time of excitement, matthew, and exhaustion. You may look at your wondrous little baby and feel happ y. You may also be overwhelmed by your new sleep hours and new responsibilities. At first, babies often sleep during the days and are awake at night. They do not have a pat tern or routine. They may make sudden gasps, jerk themselves awake, or look like they have c rossed eyes. These are all normal, and they may even make you smile. In these first weeks after delivery, try to take good care of yourself. It may take 4 to 6 weeks to feel like yourself again, and possibly longer if you had a . You will likely feel very tired for several weeks. Your days will be full of ups and downs, but lots of matthew as well. Follow-up care is a emerson part of your treatment and safety. Be sure to make and go to all ap pointments, and call your doctor if you are having problems. It's also a good idea to know y our test results and keep a list of the medicines you take. How can you care for yourself at home? Take care of your body after delivery Use pads instead of tampons for the bloody flow that may last as long as 2 weeks. Ease cramps with ibuprofen (Advil, Motrin). Ease soreness of hemorrhoids and the area between your vagina and rectum with ice compre sses or witch lisa pads. Ease constipation by drinking lots of fluid and eating high-fiber foods. Ask your doctor about gbbh-mki-svdxjbm stool softeners. Cleanse yourself with a gentle squeeze of warm water from a bottle instead of wiping wit h toilet paper. Take a sitz bath in warm water several times a day. Wear a good nursing bra. Ease sore and swollen breasts with warm, wet washcloths. If you are not , use ice rather than heat for breast soreness. Your period may not start for several months if you are . You may bleed mor e, and longer at first, than you did before you got . Wait until you are healed (about 4 to 6 weeks) before you have sexual intercourse. Your doctor will tell you when it is okay to have sex. Try not to travel with your baby for 5 or 6 weeks. If you take a long car trip, make marilyn quent stops to walk around and stretch. Avoid exhaustion Rest every day. Try to nap when your baby naps. Ask another adult to be with you for a few days after delivery. Plan for child day care center worker if you have other children. Stay flexible so you can eat at odd hours and sleep when you need to. Both you and your baby are making new schedules. Plan small trips to get out of the house. Change can make you feel less tired. Ask for help with housework, cooking, and shopping. Remind yourself that your job is to care for your baby. Know about help for depression "Baby blues" are common for the first 1 to 2 weeks after . You may cry or feel sad or irritable for no reason. Rest whenever you can. Being tired makes it harder to handle your emotions. Go for walks with your baby. Talk to your partner, friends, and family about your feelings. If your symptoms last for more than a few weeks, or if you feel very depressed, ask your doctor for help. depression can be treated. Support groups and counseling can help. Sometimes medicine can also help. Stay healthy Eat healthy foods so you have more energy and lose extra baby pounds. If you breastfeed, avoid drugs. If you quit smoking during , try to stay smoke- free. If you choose to have a drink now and then, have only one drink, and limit the number of occasions that you have a drink. Wait to breastfeed at least 2 hours after you have a dri nk to reduce the amount of alcohol the baby may get in the milk. Start daily exercise after 4 to 6 weeks, but rest when you feel tired. Learn exercises to tone your belly. Do Kegel exercises to regain strength in your pelvic muscles. You can do these exercises while you stand or sit. Squeeze the same muscles you would use to stop your urine. Your belly and thighs should not move. Hold the squeeze for 3 seconds, and then relax for 3 seconds. Start with 3 seconds. Then add 1 second each week until you are able to squeeze for 10 s econds. Repeat the exercise 10 to 15 times for each session. Do three or more sessions each day. Find a class for new mothers and new babies that has an exercise time. If you had a , give yourself a bit more time before you exercise, and be c areful. When should you call for help? Call 911 anytime you think you may need emergency care. For example, call if: You passed out (lost consciousness). Call your doctor now or seek immediate medical care if: You have severe vaginal bleeding. This means you are passing blood clots and soaking through a pad each hour for 2 or more hours. You are dizzy or lightheaded, or you feel like you may faint. You have a fever. You have new belly pain, or your pain gets worse. Watch closely for changes in your health, and be sure to contact your doctor if: Your vaginal bleeding seems to be getting heavier. You have new or worse vaginal discharge. You feel sad, anxious, or hopeless for more than a few days. You do not get better as expected. Where can you learn more? To learn more about "After Your Delivery (the Period): Care Instructions", log i nto your [employer] account at [email or web address]. You can enter A461 in the "Health L ibrcomstock" search box. Not on [employer]? Review the [employer] section of your After Visit Summary for directions on ho w to sign up. Current as of: February 18, 2018 Content Version: [id number] spotdock. Care instructions adapted under license by [facility] [employer]. If you have questions about a medical condition or this instr uction, always ask your healthcare professional. [employer] disclaims any frederic anty or liability for your use of this information. After : Exercises Your Care Instructions Here are some examples of exercises that can help after . Start each exercise slow ly. Ease off the exercise if you start to have pain. Your doctor or physical therapist will tell you when you can start these exercises and whic h ones will work best for you. How to do the exercises Kayleigh shi 1. Lie on your back, and place two fingers just inside your hip bones so you can feel your lower belly muscles. 2. Take a deep breath in. 3. As you breathe out, pull your belly button in toward your spine, as if you are trying to zip up a tight pair of jeans. You should feel your lower belly muscles pull slightly away f rom your fingers as the muscles tighten. 4. Hold for about 6 seconds, but do not hold your breath. 5. Repeat 8 to 12 times. 6. Repeat several times a day, and try to hold your lower belly muscles in for longer as yo u get stronger. 7. Practice doing this exercise while you are standing, such as when you are standing in li ne, or sitting. Heel slides 1. Lie on the floor with your knees bent, and place two fingers just inside your hip bones so you can feel your lower belly muscles. Your feet should be flat on the floor. 2. Pull your belly button in toward your spine. You should feel your lower belly muscles pu ll slightly away from your fingers as the muscles tighten. 3. Keep holding your belly button in as you slowly slide one foot along the floor until you r leg is out straight. 4. Slowly slide the leg back to your starting position while making sure that you keep hold ing your belly button in. 5. Do not arch or move your back as you are doing this. Do not hold your breath. 6. Relax and repeat with your other leg. 7. Repeat 8 to 12 times. Xstd-bi-qdpmz stretch 1. Lie on your back with one knee bent and the other leg straight. 2. Clasp your hands together under your bent knee and bring the knee to your chest. Keep yo ur lower back pressed to the floor. 3. If it hurts your back to keep your opposite leg straight as you stretch, bend that knee too, and keep that foot flat on the floor. 4. Hold for at least 15 to 30 seconds. 5. Relax and lower the knee to the starting position. 6. Repeat with the other leg. 7. Repeat 2 to 4 times with each leg. Neck rotation 1. Sit in a firm chair, or stand up straight. 2. Keeping your chin level, turn your head to the right, and hold for 15 to 30 seconds. 3. Turn your head to the left and hold for 15 to 30 seconds. 4. Repeat 2 to 4 times to each side. Shoulder rolls 1. Sit comfortably with your feet shoulder-width apart. You can also do this exercise while standing. 2. Roll your shoulders up, then back, and then down in a smooth, circular motion. 3. Repeat 2 to 4 times. Midback stretch 1. Kneel on the floor, and sit back on your ankles. 2. Lean forward, place your hands on the floor, and stretch your arms out in front of you. Rest your head between your arms. 3. Gently push your chest toward the floor, reaching as far in front of you as possible. 4. Hold for 15 to 30 seconds. 5. Repeat 2 to 4 times. Back stretches 1. Get down on your hands and knees on the floor. 2. Relax your head and allow it to droop. Round your back up toward the ceiling until you f eel a nice stretch in your upper, middle, and lower back. Hold this stretch for as long as i t feels comfortable, or about 15 to 30 seconds. 3. Return to the starting position with a flat back while you are on your hands and knees. 4. Let your back sway by pressing your stomach toward the floor. Lift your buttocks toward the ceiling. 5. Hold this position for 15 to 30 seconds. 6. Repeat 2 to 4 times. Hamstring stretch (lying down) 1. Lie flat on your back with your legs straight. If you feel discomfort in your back, plac e a small towel roll under your lower back. 2. Holding the back of your leg, lift your leg straight up and toward your body until you f eel a stretch at the back of your thigh. 3. Hold the stretch for at least 30 seconds. 4. Repeat 2 to 4 times. 5. Switch legs and repeat steps 1 through 4. Calf stretch 1. Stand facing a wall with your hands on the wall at about eye level. Put your leg about a step behind your other leg. 2. Keeping your back leg straight and your back heel on the floor, bend your front knee and gently bring your hip and chest toward the wall until you feel a stretch in the calf of you r back leg. 3. Hold the stretch for 15 to 30 seconds. 4. Repeat 2 to 4 times. 5. Repeat steps 1 through 4, but this time keep your back knee bent. 6. Switch legs and repeat steps 1 through 5. Follow-up care is a emerson part of your treatment and safety. Be sure to make and go to all ap pointments, and call your doctor if you are having problems. It's also a good idea to know y our test results and keep a list of the medicines you take. Where can you learn more? To learn more about "After : Exercises", log into your [employer] account at [email or web address]. You can enter [id number] in the "Health Library" search box. Not on MyChart? Review the MyChart section of your After Visit Summary for directions on jean-claude vivian to sign up. Current as of: February 18, 2018 Content Version: 11.9 [id number] spotdock. Care instructions adapted under license by [facility] [employer]. If you have questions about a medical condition or this instr uction, always ask your healthcare professional. [employer] disclaims any frederic anty or liability for your use of this information. documented in this encounter Progress Notes Natasha Jones MD - 08/27/2018 8:30 AM PDTFormatting of this note might be different fro m the original. Note OB History Para Term AB Living 2 1 1 0 1 1 SAB TAB Ectopic Multiple Live Births 1 0 0 0 1 # Outcome Date GA Lbr Naun/2nd Weight Sex Delivery Anes PTL Lv 2 Term 07/17/18 39w2d 3.37 kg (7 lb 6.9 oz) M CS-LTranv epidural. SAMANTA 1 SAB 12/2015 Comments: Period 2 weeks late, 2 positive home tests, started bleeding w ith hcg quant of 0 Subjective Elizabet Turcios is a 23 y.o. who is 6 weeks s/p delivery presen tin for visit. Her was complicated by GDM on insulin, BMI 45, velamen tous cord insertion, Rh neg. Complaints: Patient doing well. Feeling pretty good. She has been back to work since 3 w eeks . She takes her baby with her which is nice. She is bottle feeding. She repo rts bleeding stopped, just having occ spotting. Denies any pain. Denies fatigue, trouble w ith bowel or bladder function. She has not yet had intercourse. Reports her mood is stable , she has more anxiety than depression and states this is normal for her. She has never been treated for it and does not feel like she needs it. She reports having good support and fe els overall well emotionally. Objective BP 122/80 | Pulse 97 | Temp 37.2 C (98.9 F) | Wt 114.3 kg (252 lb) | SpO2 97% | BM I 46.09 kg/m | BSA 2.24 m General: happy, no acute distress and well appearing Breast: Bilateral breasts with no masses, erythema or tenderness. Nipples normal. CV: regular rate and rhythm without murmurs, rubs or gallops Lungs: clear to auscultation bilaterally Abdomen: abdomen soft, non-tender, no rebound and incision - clean, dry intact and well-h ealed Extremities: no edema, warm and well-perfused and non-tender Other: None Screened for depression or prior mood disorders/blues: yes Depression: damien aquino EPDS: In the past 7 days... Able to laugh & see funny side of things: 0-as much as she always could Looked forward with enjoyment : 0-as much as she ever did Blamed self when things went wron-yes, some of the time Been anxious or worried: 2-yes, sometimes Horatio scared or panicky: 2-yes, sometimes Things getting on top: 1-no, most of the time has coped quite well So unhappy having difficulty sleepin-not very often Horatio sad or miserable: 1-not very often So unhappy have been cryin-only occasionally Thought of harming self: 0-never TOTAL SCORE (possible depression: 10 or greater): 10 Assessment: 23 y.o. presenting for 6 week visit after delivery . Her was complicated by GDM on insulin, BMI 45, velamentous cord insertion, Rh ne g. - Recovering as expected - Discussed increased EPDS and patient denies feelings of depression. Reports more anxiety. Discussed resources for this and how to seek help. She declines counseling or medication at this time and states she feels well. - Reviewed contraceptive options including LARC methods and patient would like to use the p atch, Rx provided today - Discussed GDM and need for 2hr GTT at 6-12 wks . Discussed increased risk of ty pe 2 diabetes and healthy diet and exercise to help minimize her risk. Encouraged continuing diabetic diet and daily walks until she can resume more vigorous exercise routine. - Follow up for annual exam Natasha Jones MD Carlos Solano MA - 8:30 AM PDTLast pap 01/07/18 negative Would like to do control patch documented in this encou nter Plan of Treatment Not on filedocumented as of this encounter Visit Diagnoses + + | Diagnosis | + + | care and examination - Primary | + + | History of gestational diabetes Personal history of gestational diabetes | + + documented in this encounter
--- OUTSIDE RECORDS SUMMARY | ~2019-05-12 | XMS | Encounter Summary ---
Demographics + + + | Address | [address] | | | [place] [address] | + + + | Home Phone | | + + + | Preferred Language | Unknown | + + + | Marital Status | Single | + + + | Pentecostalism Affiliation | NRP | + + + | Race | White | + + + | Ethnic Group | Not or | + + + Author + + + | Author | [facility] | + + + | Organization | [facility] | + + + | Address | Unknown | + + + | Phone | Unavailable | + + + Support + + + + + | Name | Relationship | Address | Phone | + + + + + | Anderson Rose | ECON | [address] | | | [place] | | [place] [address] | | + + + + + | Gracie Turcios | ECON | [place] | | + + + + + Care Team Providers + +------+ + | Care Cleaner And Presser Name | Role | Phone | + [...] | +--------+ + + + + | 06/25/ | | [place] | [place], | | | 2019 | | [facility] [address] | MD Leonela [address] | [address] | [address] | | | | [address] [place], [place] | [place], [place] | | | | | [address] | [address] | | | | | [phone] | [phone] | | | | | | | [...] + + + | Blood Pressure | 122/74 | 06/25/2018 7:32 AM | | | | | PST [...] + + + + | Weight | 123.4 kg (272 lb) | 06/25/2018 7:32 AM | | | | | PST | | + + + + + | Height | - | - | | + + + + + | Body Mass Index | 49.74 | 03/16/2018 3:13 PM | | | | | PDT | | + + + + + documented in this encounter Patient Instructions Patient Instructions Kristine Carlos, MA - 06/25/2018 7:30 AM PSTPrenatal Visit - Week 36 Please read chapters 10 and 13 in your book. What if it s a BOY? Parents can sometimes be confused about whether they should have their baby boy circumcised . It s a very personal decision and may be guided by personal or health reasons. It may be helpful to gather some information about some of the pros and cons of circumcision and th e things to think about when making your decision. The [employer] has some helpful information that you can find by going to: www.healthychildren.org and searching for circumcision . If you decide to have your baby boy circumcised, it can sometimes be done during your [facility] stay. Check to see if your insurance company will pay for it ..some don t, in which case you will have to pay for the procedure. Outpatient Circumcision Services Check with your insurance plan about circumcision coverage Procedures typically done by two weeks of age call before delivery to review office bobbi icies. Call soon after delivery to schedule. Payment due at time of service varies, most providers will accept down payment and allow pa yment schedules, ask at time of scheduling. [facility] Family Medicine Ashley Edward MD [address] [place], [place] [address]es [place], [place] [phone] [facility] Michelle Macdonald MD [address] [facility] Reynaldo Mata MD [phone] [facility] Multiple providers [address] [facility] [phone] [facility] Isrrael Tillman MD [address] [facility] [phone] [facility] [address] [facility] [phone] [facility] Hasmukh Cortes MD [address] [facility] [phone] [facility] [place] [address] [address] [place] [phone] [place] [phone] Group requires patients to establish care with any provider and Dr. Chaudhary will perform circumcision Car Seats Automobile accidents are the leading cause of in people ages 1-45. You will need an approved car seat to take your baby home from the hospital. Let us know if you need help ob taining a car seat for your . Arrange to have your car seat in your hospital room on the day of discharge ..we will help tailor the fit to your baby. If you re uncertain about fitting your baby s car seat into your car, we can help you: they will fit your car seat at the hospital before you go home. Weeks 34 to 36 of Your : [...] be flexible in your expectations of the [facility]. Because each is different, there is no [...] log into your My Chart account at [email or web address]. You can enter B912 in the "Health Library" [facility] box. Not on LensARhart? Review the MyChart section of your After Visit Summary for directions on jean-claude w to sign up. Current as of: February 18, 2018 Content Version: 11.9 [id number] [employer]endFriend. Care instructions adapted under license by [facility] & [employer] [place]. If you have questions about a medical condition or this instr uction, always ask your healthcare professional. [employer] disclaims any frederic anty or liability for your use of this information. documented in this encounter Progress Notes Leonela Luke MD - 06/25/2018 7:30 AM PSTS: Elizabet is a at 36w1d who pr esents today for a routine OB visit and JUANI. She is having some irregular contractions. Sh e has good movement. Her blood sugars are under better control. One elevated fasting since nighttime insulin w as increased. She has had 3 elevated post prandials, all after dinner. O: General: NAD Abdomen: Soft, gravid. Psych: Appropriate mood and affect A: lEizabet is a at 36w1d who presents today for a routine OB visit and JUANI. P: F/u in 1 weeks for a routine OB visit and growth ultrasound. Reviewed that delivery would likely be between 38 and 39 weeks. Letter given to patient for her to limit work to 26 hours weekly. She will follow up later today for her NST. Continue biweekly NST. Valorie naqvi MA - 06/25/2018 7:30 AM PSTGBS today. She would like to discuss the plan for her last weeks of . Medication list reviewed with provider and updated per verbal instruction.Zahra ctronically signed by Valorie Berrios MA at 06/25/2018 8:17 AM PSTdocumented in this encount er Plan of Treatment Not on filedocumented as of this encounter Procedures + +--------+ + + + | Procedure Name | Priori | Date/Time | Associated Diagnosis | Comments | | | ty | | | | + +--------+ + + + | CULTURE, STREP B | Routin | 06/25/2018 | | Results for this | | | e | 7:22 AM | screening for | procedure are in the | | | | PST | streptococcus B | results section. | + +--------+ + + + | CLINIC OB ONE OR | Routin | 06/25/2018 | Insulin controlled | Results for this | | MORE FETUSES LIMITED | e | | gestational | procedure are in the | | | | | diabetes mellitus | results section. | | | | | (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 | | | | | | trimester | | + +--------+ + + + documented in this encounter Results LATRICE MORRIS (06/25/2018 7:22 AM PST) + + + + + + | Component | Value | Ref Range | Performed | Pathologist | | | | | At | Signature | + + + + + + | CULTURE | Negative for Group B | | [facility] | | | RESULT | Beta Streptococci | | A MEDICAL | | | STREP B | | | CENTER | | + + + + + + + + | Specimen | + + | Swab - Pooled | | specimen from | | vaginal introitus | | and rectal swab | | (specimen) | + + + + + + + | Performing | Address | City/State/Zipcode | Phone Number | | Organization | | | | + + + + + | [facility] | And | [place] [address] | [phone] | | MEDICAL CENTER | Streets | | | + + + + + US CLINIC OB ONE OR MORE FETUSES LIMITED (06/25/2018) + + + | Impressions | Performed At | + + + | History: 23 y.o. at 36w1d gestation presenting for an JUANI | [facility] | | secondary to GDM and BMI Findings: Espinoza in cephalic | CARE TESTING | | presentation. JUANI 15.78 cm MVP: 4.39 cm Impression: 23 y.o. | | | at 36w1d gestation with normal JUANI Recommendations: | | | Growth and JUANI next week with tech. Performed and read by | | | Leonela Luke MD | | + + + + +---------+ + + | Performing | Address | City/State/Zipcode | Phone Number | | Organization | | | | + +---------+ + + | [facility] | | | | | TESTING | | | | + +---------+ + + documented in this encounter Visit Diagnoses + + | Diagnosis | + + | Insulin controlled gestational diabetes mellitus (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 trimester - Primary | + + | screening for streptococcus B screening for Streptococcus B | + + documented in this encounter
--- OUTSIDE RECORDS SUMMARY | ~2019-05-12 | XMS | Encounter Summary ---
Demographics + + + | Address | [address] | | | [place] [address] | + + + | Home Phone | | + + + | Preferred Language | Unknown | + + + | Marital Status | Single | + + + | Congregation Affiliation | NRP | + + + [...] | | [place] | | [place] [address] | | + + + + + | Gracie Turcios | ECON | [place]CHAR[place] | | + + + + + Care Team Providers + +------+ + | Care Acetone Button Paster Name | Role | Phone | + [...] + + + | 06/11/ | | [place] | | Obstetric US Scan | | 2018 | | [facility] [address] | | | | | | [facility] | | | | | | [address] [place], [place] | | | | | | [address] | | | | | | [phone] | | | +--------+ + + + [...] + documented as of this encounter Progress Carlos Neal MA - 06/11/2018 8:00 AM PSTGrowth US with tech. documented in this encounter Plan of Treatment Not on filedocumented as of this encounter Procedures + +--------+ + + + | Procedure Name | Priori | Date/Time | Associated Diagnosis | Comments | | | ty | | | | + +--------+ + + + | CLINIC OB FOLLOW | Routin | 06/11/2018 | Gestational | Results for this | | UP PER FETUS | e | | diabetes mellitus | procedure are in the | | | | | (GDM) in second | results section. | | | | | trimester controlled | | | | | | on oral | | | | | | hypoglycemic drug | | + +--------+ + + + documented in this encounter Results US CLINIC OB FOLLOW UP PER FETUS (06/11/2018) + + + | Impressions | Performed At | + + + | History: 23 y.o. at 34w1d gestation presenting for a | [facility] | | growth scan secondary to GDM. Findings: Espinoza in cephalic | CARE TESTING | | presentation. Placenta: Anterior BPD: 8.7 cm (66%) 35w 2d HC: | | | 32.7 cm (>95%) 37w 0d AC: 31.4 cm (68%) 35w 2d FL: 6.8 cm (61%) 34w | | | 6d EFW: 2667 grams (5lb 14 oz) (75% for GA) JUANI: 25.65 cm | | | MVP: 9.1 cm Impression: 23 y.o. at 34w1d gestation | | | with GDM growth at the 75%ile and 25.65 JUANI. | | | Recommendations: Follow up JUANI in 1 week for monitoring | | | due to insulin-dependent GDM. Repeat growth US at 37 weeks. | | | Performed by refresh technician. Type of ultrasound: ABDOMINAL. Read by | | | Natasha Jones MD | | + + + + [...] hypoglycemic drug - Primary | + + documented in this encounter"
--- OUTSIDE RECORDS SUMMARY | ~2019-05-12 | XMS | Encounter Summary ---
Demographics + + + | Address | [address] | | | [place] [address] | + + + | Home Phone | | + + + | Preferred Language | Unknown | + + + | Marital Status | Single | + + + | Restoration Affiliation | NRP | + + + | Race | White | + + + | Ethnic Group | Not or | + + + Author + + + | Author | [facility] | + + + | Organization | [facility] | + + + | Address | Unknown | + + + | Phone | Unavailable | + + + Support + + + + + | Name | Relationship | Address | Phone | + + + + + | Anderson Rose | ECON | [address] | | | [place] | | [place] [address] | | + + + + + | Gracie Turcios | ECON | [place] | | + + + + + Care Team Providers + +------+ + | Care Ranch Helper Name | Role | Phone | + +------+ + | Anisha Rivera | PCP | | + +------+ + Reason for Visit + + + | Reason | Comments | + + + | Nasal congestion | | + + + | Cough | | + + + Encounter Details +--------+ + + + + | Date | Type | Department | Care Team | Description | +--------+ + + + + | 09/05/ | Emergency | Emergency | Amrik Briones, | | | 2016 | | Department at [facility] | [facility] | | | | | [facility] [address] | [facility] [address] | | | | | [place], | [address] [place] | | | | | [place] [address] | [place] [address] | | | | | [phone] | [phone] | | | | | | | [...] + + + | Blood Pressure | 135/87 | 09/05/2016 10:21 PM | | | | | PDT | | + + + + + | Pulse | 97 | 09/05/2016 10:21 PM | | | | | PDT | | + + + + + | Temperature | 37.1 C (98.8 F) | 09/05/2016 10:21 PM | | | | | PDT | | + + + + + | Respiratory Rate | 18 | 09/05/2016 10:21 PM | | | | | PDT | | + + + + + | Oxygen Saturation | 99% | 09/05/2016 10:21 PM | | | | | PDT | | + + + + + | Inhaled Oxygen | - | - | | | Concentration | | | | + + + + + | Weight | 113.4 kg (250 lb) | 09/05/2016 8:34 PM | | | | | PDT | | + + + + + | Height | - | - | | + + + + + | Body Mass Index | 47.24 | 10/02/2015 1:55 PM | | | | | PDT | | + + + + + documented in this encounter Discharge Instructions Instructions Amrik Briones MD - 09/05/2016Monitor symptoms closely. Return to the [facility] department immediately for any new or worsened symptoms. Consider neti pot treatment, saline drops, pseudoephedrine as prescribed. Sinusitis: Care Instructions Your Care Instructions Sinusitis is an infection of the lining of the sinus cavities in your head. Sinusitis often follows a cold. It causes pain and pressure in your head and face. In most cases, sinusitis gets better on its own in 1 to 2 weeks. But some mild symptoms may last for several weeks. Sometimes antibiotics are needed. Follow-up care is a emerson part of your treatment and safety. Be sure to make and go to all ap pointments, and call your doctor if you are having problems. It's also a good idea to know y our test results and keep a list of the medicines you take. How can you care for yourself at home? Take an lucl-aif-jzerert pain medicine, such as acetaminophen (Tylenol), ibuprofen (Advi l, Motrin), or naproxen (Aleve). Read and follow all instructions on the label. If the doctor prescribed antibiotics, take them as directed. Do not stop taking them jus t because you feel better. You need to take the full course of antibiotics. Be careful when taking ajms-nkk-sctjhoe cold or flu medicines and Tylenol at the same ti me. Many of these medicines have acetaminophen, which is Tylenol. Read the labels to make lewis re that you are not taking more than the recommended dose. Too much acetaminophen (Tylenol) can be harmful. Breathe warm, moist air from a steamy shower, a hot bath, or a sink filled with hot wate r. Avoid cold, dry air. Using a humidifier in your home may help. Follow the directions for cleaning the machine. Use saline (saltwater) nasal washes to help keep your nasal passages open and wash out m ucus and bacteria. You can buy saline nose drops at a grocery store or drugstore. Or you can make your own at home by adding 1 teaspoon of salt and 1 teaspoon of baking soda to 2 cups of distilled water. If you make your own, fill a bulb syringe with the solution, insert the tip into your nostril, and squeeze gently. Blow your nose. Put a hot, wet towel or a warm gel pack on your face 3 or 4 times a day for 5 to 10 adriana janny each time. Try a decongestant nasal spray like oxymetazoline (Afrin). Do not use it for more than 3 days in a row. Using it for more than 3 days can make your congestion worse. When should you call for help? Call your doctor now or seek immediate medical care if: You have new or worse swelling or redness in your face or around your eyes. You have a new or higher fever. Watch closely for changes in your health, and be sure to contact your doctor if: You have new or worse facial pain. The mucus from your nose becomes thicker (like pus) or has new blood in it. You are not getting better as expected. Where can you learn more? To learn more about "Sinusitis: Care Instructions", log into your Chairish account at [email or web address]. You can enter I933 in the "Health Library" search box. Not on Chairish? Review the MyChart section of your After Visit Summary for directions on jean-claude park to sign up. Current as of: January 12, 2016 Content Version: [id number] CanoP. Care instructions adapted under license by [facility] & [facility]. If you have questions about a medical condition or this instr uction, always ask your healthcare professional. [employer]P disclaims any frederic anty or liability for your use of this information. Saline Nasal Washes: Care Instructions Your Care Instructions Saline nasal washes help keep the nasal passages open by washing out thick or dried mucus. This simple remedy can help relieve symptoms of allergies, sinusitis, and colds. It also can make the nose feel more comfortable by keeping the mucous membranes moist. You may notice a little burning sensation in your nose the first few times you use the solution, but this us ually gets better in a few days. Follow-up care is a emerson part of your treatment and safety. Be sure to make and go to all ap pointments, and call your doctor if you are having problems. It's also a good idea to know y our test results and keep a list of the medicines you take. How can you care for yourself at home? You can buy premixed saline solution in a squeeze bottle or other sinus rinse products a t a drugstore. Read and follow the instructions on the label. You also can make your own saline solution by adding 1 teaspoon of salt and 1 teaspoon o f baking soda to 2 cups of distilled water. If you use a homemade solution, pour a small amount into a clean bowl. Using a rubber bu lb syringe, squeeze the syringe and place the tip in the salt water. Pull a small amount of the salt water into the syringe by relaxing your hand. Sit down with your head tilted slightly back. Do not lie down. Put the tip of the bulb s yringe or the squeeze bottle a little way into one of your nostrils. Gently drip or squirt a few drops into the nostril. Repeat with the other nostril. Some sneezing and gagging are no rmal at first. Gently blow your nose. Wipe the syringe or bottle tip clean after each use. Repeat this 2 or 3 times a day. Use nasal washes gently if you have nosebleeds often. When should you call for help? Watch closely for changes in your health, and be sure to contact your doctor if: You often get nosebleeds. You have problems doing the nasal washes. Where can you learn more? To learn more about "Saline Nasal Washes: Care Instructions", log into your Chairish account at [email or web address]. You can enter [id number] in the "Hello [employer] Library" search box. Not on Vurbhart? Review the Vurbhart section of your After Visit Summary for directions on jean-claude w to sign up. Current as of: January 12, 2016 Content Version: 04.16-2016 CanoP. Care instructions adapted under license by [facility] [employer] & [employer]. If you have questions about a medical condition or this instr uction, always ask your healthcare professional. CanoP disclaims any frederic anty or liability for your use of this information. documented in this encounter Plan of Treatment Not on filedocumented as of this encounter Visit Diagnoses + + | Diagnosis | + + | Acute maxillary sinusitis, recurrence not specified - Primary | + + | Viral URI Acute upper respiratory infections of unspecified site | + + documented in this encounter
--- OUTSIDE RECORDS SUMMARY | ~2019-05-12 | XMS | Encounter Summary ---
Demographics + + + | Address | [address] | | | [place] [address] | + + + | Home Phone | | + + + | Preferred Language | Unknown | + + + | Marital Status | Single | + + + | Orthodox Affiliation | NRP | + + + | Race | White | + + + | Ethnic Group | Not or | + + + Author + + + | Author | [facility] | + + + | Organization | [facility] | + + + | Address | Unknown | + + + | Phone | Unavailable | + + + Support + + + + + | Name | Relationship | Address | Phone | + + + + + | Anderson Rose | ECON | [address] | | | [place] | | [place] [address] | | + + + + + | Gracie Turcios | ECON | [place] | | + + + + + Care Team Providers + +------+ + | Care Pipe Fitter Name | Role | Phone | + [...] + + + | 05/28/ | | [place] | | Obstetric US Scan | | 2018 | | [facility] [address] | | | | | | [address] [facility] | | | | | | [address] [place], [place] | | | | | | [address] | | | | | | [phone] | | | +--------+ + + + [...] encounter Progress Notes Heath Valenzuela MD - 05/28/2018 8:30 AM PSTAFI with tech documented in this encounter Plan of Treatment Not on filedocumented as of this encounter Procedures + +--------+ + + + | Procedure Name | Priori | Date/Time | Associated Diagnosis | Comments | | | ty | | | | + +--------+ + + + | CLINIC OB ONE OR | Routin | 05/28/2018 | Gestational | Results for this | | MORE FETUSES LIMITED | e | 8:39 AM | diabetes mellitus | procedure are in the | | | | PST | (GDM) in second | results section. | | | | | trimester controlled | | | | | | on oral | | | | | | hypoglycemic drug | | + +--------+ + + + documented in this encounter Results CLINIC OB ONE OR MORE FETUSES LIMITED (05/28/2018 8:39 AM PST) + + | Specimen | + + | | + + + + + | Impressions | Performed At | + + + | History: 23 y.o. at 32w1d gestation presenting for an JUANI | [facility] | | secondary to BMI of 44 and GDM. Findings: Espinoza in cephalic | DEPARTMENT OF | | presentation. Placenta: Anterior JUANI 27 cm MVP: 7.7 cm | RADIOLOGY | | Polyhydramnios Impression: 23 y.o. at 32w1d gestation | | | with normal JUANI Recommendations: JUANI 1 week. And Growth for GDM | | | in 2 weeks Performed by edger technician. Type of ultrasound: | | | [...]
--- OUTSIDE RECORDS SUMMARY | ~2019-05-12 | XMS | Encounter Summary ---
Demographics + + + | Address | [address] | | | [place] [address] | + + + | Home Phone | | + + + | Preferred Language | Unknown | + + + | Marital Status | Single | + + + | Methodist Affiliation | NRP | + + + | Race | White | + + + | Ethnic Group | Not or | + + + Author + + + | Author | [facility] | + + + | Organization | [facility] | + + + | Address | Unknown | + + + | Phone | Unavailable | + + + Support + + + + + | Name | Relationship | Address | Phone | + + + + + | Anderson Rose | ECON | [address] | | | [place] | | [place] [address] | | + + + + + | Gracie Turcios | ECON | [place] | | + + + + + Care Team Providers + +------+ + | Care Equipment Planner Name | Role | Phone | + [...] | +--------+ + + + + | 06/04/ | | [place] | | monitoring | | 2018 | | [facility] [address] | | | | | | E [facility] | | | | | | [address] [place], [place] | | | | | | [address] | | | | | | [phone] | | | +--------+ + + + [...] + + + | Blood Pressure | 110/73 | 06/04/2018 8:41 AM | | | | | PST [...] Weight | 119.7 kg (264 lb) | 06/04/2018 8:41 AM | | | | | PST | | + + + + + | Height | - | - | | + + + + + | Body Mass Index | 48.27 | 03/16/2018 3:13 PM | | | | | PDT | | + + + + + documented in this encounter Progress Notes Jaz Erazo, KATHY - 06/04/2018 8:00 AM PSTNST: 23 y.o. at 33w1d weeks [facility]. Indications for monitoring: GDM on insulin, velamentous cord insertion, polyhydramn ios Blood sugars reviewed with patient and Dr. Lopez. Since visit Friday two postprandials aft er breakfast 149 and 142, patient states torsten badillo has been her go to breakfast this w [facility]. Advised to cut it in half, find whole wheat version to try, stop if this does not brin g bg into normal range under 140. All other bg WNL. Plans to picker and sorter load and unload insulin needles today . Has been able to give herself insulin and states it is not as intimidating as she expecte d it to be. FHT: Baseline FHR 130, moderate variability, 10 x 10 or greater accelerations, and no dece lerations. TOCO: Two contractions noted in 30 minutes, rated at 0/10 on pain scale. Elizabet thought baby was moving. Discussed contractions/Chris Mcdonald in . Strip reviewed by Dr. Lopez. Next appointment 06/08/18 at 7:45 am for NST and routine ob visit with provider with review of blood sugars. documented in th is encounter Plan of Treatment Not on filedocumented as of this encounter Procedures + +--------+ + + + | Procedure Name | Priori | Date/Time | Associated Diagnosis | Comments | | | ty | | | | + +--------+ + + + | NST | Routin | 06/04/2018 | Gestational | Results for this | [...] + documented in this encounter Results NST (06/04/2018) + + + + + [...]
--- OUTSIDE RECORDS SUMMARY | ~2019-05-12 | XMS | Encounter Summary ---
Demographics + + + | Address | [address] | | | [place] [address] | + + + | Home Phone [...] | | [place] | | [place] [address] | | + + + + + | Gracie Turcios | ECON | [place] | | + + + + + Care Team Providers + +------+ + | Care Spice Mixer Name | Role | Phone | + [...] | Closed | | | Diagnoses | [place], | Pnc | | | | | [...] | | | | | PERINATOLOGY | [address] | Pavilion | | | | | DC NEW | Phone: | [place], [place] | | | | | PATIENT | [phone] | [address] | | | | | LEVEL V DC | Fax: | Phone: | | | | | EST PATIENT | [phone] | [phone] | | | | | LEVEL V | | Fax: | | | | | | | [phone] | +--------+--------+ + + + + Reason for Visit + + + | Reason | Comments | + + + | | | + + + Encounter Details +--------+ + + + + | Date | Type | Department | Care Team | Description | +--------+ + + + + | 03/05/ | | [place] | Kapil Rutherford, | | | 2018 | | [facility] [place] [address] | CNM [address] | | | | | E [address] | [address] | | | | | [address] [place], [place] | [place], [place] | | | | | [address] | [address] | | | | | [phone] | [phone] | | | | | | | [...] Week 20 You ve arrived at the usp point in your . You re probably [...] from the Centers for Disease Control (CDC): http://wwwnc.cdc.gov/travel/yellowbook/2014/hlzztbe-0-fzgxeact-mqfgscphq-enon-ofjueynj-need s/-travelers Or do a Google search for: [...] babies can now suck their thumbs , handle sewer firmly with their hands, and open and [...] log into your My Chart account at [email or web address], [email or web address]. You can enter [id number] in the "Health Library" [facility] box. Not on [employer]? Review the MyChart section of your After Visit Summary for directions on jean-claude w to sign up. Current as of: May 06, 2017 Content Version: 11.7 [id number] [employer]. Care instructions adapted under license by [facility] alth & [employer] [place]. If you have questions about a medical condition or this instr uction, always ask your healthcare professional. [employer] disclaims any frederic anty or liability for [...] [place]. Recommendation is to go t o [facility] to complete anatomy and to evaluate chin. Pt accepts referral. She was given number t o pre-register at [facility]. F/U 1 week Mary Javier MA - [...]
--- OUTSIDE RECORDS SUMMARY | ~2019-05-12 | XMS | Encounter Summary ---
Demographics + + + | Address | [address] | | | [place] [address] | + + + | Home Phone [...] Author + + + | Author | [facility] | + + + | Organization | [facility] | + + + | Address | Unknown | + + + | Phone | Unavailable | + + + Support + + + + + | Name | Relationship | Address | Phone | + + + + + | Anderson Rose | ECON | [address] | | | [place] | | [place] [address] | | + + + + + | Gracie Bullock | ECON | [place] | | + + + + + Care Team Providers + +------+ + | Care Sales Account Manager Name | Role | Phone | + +------+ + | Anisha Rivera | PCP | | + +------+ + Encounter Details +--------+ + + + + | Date | Type | Department | Care Team | Description | +--------+ + + + + | 09/28/ | Hospital | Diagnostic Imaging | Mame Taylor MD | | | 2018 | Encounter | at [facility] | [address] | | | | | [address] | [place] [address] | | | | | [place], [place] | [phone] | | | | | [address] | | | | | | [phone] | | | +--------+ + + + [...] + + + | [address] [place] [address] | [facility] | | [place] [address] | DEPARTMENT | | [phone] Name: FRANK BULLOCK Phys: | RADIOLOGY | | MAME TAYLOR : 1995 Sex: F CSN: | | | [id number] MR# [id number] Exam Date: 09/28/2018 | | | EXAM: [...] Transcribed Date/Time: | | | 09/28/2018 15:22 Focused Factory Manager: FLUENCY | | + + + + + | Procedure Note | + + | Interface, Radiology Results - 09/28/2018 3:27 PM PDT [address] | | [address] [place] [address] | | Name: FRANK BULLOCK Phys: MAME TAYLOR : 1995 Sex: F | | CSN: [id number] MR# [id number] Exam Date: 09/28/2018 EXAM:TWO VIEW CHEST XRAY [...] | | |Transcribed Date/Time: 09/28/2018 15:22 | |Focused Factory Manager: FLUENCY | | | | | | | + + + +---------+ + + | Performing | Address | City/State/[place] | Phone Number | | Organization | [...]
--- OUTSIDE RECORDS SUMMARY | ~2019-05-12 | XMS | Encounter Summary ---
Demographics + + + | Address | [address] | | | [place] [address] | + + + | Home Phone [...] + + + | Author | [facility] | + + + | Organization | [facility] | + + + | Address | Unknown | + + + | Phone | Unavailable | + + + Support + + + + + | Name | Relationship | Address | Phone | + + + + + | Anderson Rose | ECON | [address] | | | [place] | | [place] [address] | | + + + + + | Gracie Turcios | ECON | [place] | | + + + + + Care Team Providers + +------+ + | Care Marketing Professor Name | Role | Phone | + [...] + + + | 06/03/ | | [place] | Pentopoulos, | Obstetric US Scan | | 2018 | | [facility] [address] | MD [place] [address] | (JUANI) | | | | E [address] | [address] | | | | | [address] [place], [place] | [place], [place] | | | | | [address] | [address] | | | | | [phone] | [phone] | | | | | | | [...] sent in needles for y ou to miner pick from your pharmacy. Please make sure your [...] Hydrocortisone. Ask your doctor about taking an qfzt-gkb-vibmrhi stool softener. Consider Experts recommend that women [...] may help to think about your personal, catholic, and fami ly traditions. You get to [...] log into your My Chart account at [email or web address]. You can enter [id number] in the "CallAround Library" [facility] box. Not on [employer]t? Review the MyChart section of your After Visit Summary for directions on ho w to sign up. Current as of: February 18, 2018 Content Version: .9 [id number] [employer]. Care instructions adapted under license by [facility] [employer] & [employer] [place]. If you have questions about a medical condition or this instr uction, always ask your healthcare professional. [employer] disclaims any frederic anty or liability for [...] + + documented in this encounter Results [facility] ONE OR MORE FETUSES LIMITED (06/03/2018) [...]
--- OUTSIDE RECORDS SUMMARY | ~2019-05-12 | XMS | Encounter Summary ---
Demographics + + + | Address | [address] | | | [place] [address] | + + + | Home Phone | | + + + | Preferred Language | Unknown | + + + | Marital Status | Single | + + + | Yazidism Affiliation | NRP | + + + | Race | White | + + + | Ethnic Group | Not or | + + + Author + + + | Author | [facility] | + + + | Organization | [facility] | + + + | Address | Unknown | + + + | Phone | Unavailable | + + + Support + + + + + | Name | Relationship | Address | Phone | + + + + + | Anderson Rose | ECON | [address] | | | [place] | | [place] [address] | | + + + + + | Gracie Turcios | ECON | [place] | | + + + + + Care Team Providers + +------+ + | Care Grounds And Nursery Specialist Name | Role | Phone | + +------+ + | Anisha Rivera | PCP | | + +------+ + Encounter Details +--------+ + + + + | Date | Type | Department | Care Team | Description | +--------+ + + + + | 06/12/ | Gi Tech | [place] | Natasha Jones, | Supervision of [facility] | | 2018 | | [facility] [address] | MD [address] , | risk in | | | | [address] [place], [place] | third trimester | | | | [address] [place], [place] | [address] | (Primary Dx) | | | | [address] | [phone] | | | | | [phone] | | | +--------+ + + + [...] on filedocumented as of this encounter Results ANTIBODY SCREEN (06/12/2018 3:18 PM PST) + [...] [facility] | and | [place] [address] | | | | Streets | | | + + + + + documented in this encounter Visit Diagnoses + + | Diagnosis | + + | Supervision of high risk in third trimester - Primary Unspecified high-risk | | | + + documented in this encounter"
--- OUTSIDE RECORDS SUMMARY | ~2019-05-12 | XMS | Encounter Summary ---
Demographics + + + | Address | [address] | | | [place] [address] | + + + | Home Phone [...] Author + + + | Author | [facility] | + + + | Organization | [facility] | + + + | Address | Unknown | + + + | Phone | Unavailable | + + + Support + + + + + | Name | Relationship | Address | Phone | + + + + + | Anderson Rose | ECON | [address] | | | [place] | | [place] [address] | | + + + + + | Gracie Turcios | ECON | [place] | | + + + + + Care Team Providers + +------+ + | Care Director Sanitation Bureau Name | Role | Phone | + [...] | +--------+ + + + + | 07/06/ | | [place] | | monitoring | | 2019 | | [facility] [address] | | | | | | E [facility] | | | | | | [address] [place], [place] | | | | | | [address] | | | | | | [phone] | | | +--------+ + + + [...] documented as of this encounter Progress Notes Jordan Gonsalves RN - 07/06/2018 8:00 AM PSTNST: 23 y.o. at 37w5d weeks gesta tion. Indications for monitoring: GDM on insulin, BMI Elizabet states she has continued contractions that feel the same as they did at her last v isit. She states they are not as bad in the mornings. She has continued pain in her stomach. She cannot describe or explain the pain. She rates it at 7-8/10 but is sitting calming in t he monitoring chair. Elizabet is has not been checking her sugars regularly. She states she forgets at work. She had trouble getting her insulin refilled this weekend but was able to. Told pt that I would fix the dosing. She then told Dr. Jones she didn't need another refill. Dr. Jones met with patient regarding glucose monitoring. FHT: Baseline FHR 135, moderate variability, 15 x 15 accelerations, and no decelerations. TOCO: Two contractions noted in 25 minutes, rated at 7/10 on pain scale by patient. Strip reviewed by Natasha Jones MD. Next appointment 07/09 for OBR/NST/JUANI. documented in this encounter Plan of Treatment Not on filedocumented as of this encounter Procedures + +--------+ + + + | Procedure Name | Priori | Date/Time | Associated Diagnosis | Comments | | | ty | | | | + +--------+ + + + | NST | Routin | 07/06/2018 | Gestational | Results for this | [...] + documented in this encounter Results NST (07/06/2018) + + + + + [...]
--- OUTSIDE RECORDS SUMMARY | ~2019-05-12 | XMS | Encounter Summary ---
Demographics + + + | Address | [address] | | | [place] [address] | + + + | Home Phone [...] | | [place] | | [place] [address] | | + + + + + | Gracie Turcios | ECON | [place] | | + + + + + Care Team Providers + +------+ + | Care Security Services Manager Name | Role | Phone | + +------+ + | Anisha Rivera | PCP | | + +------+ + Reason for Visit + + + | Reason | Comments | + + + | Cold Symptoms | The patient presents to discuss cold symptoms, cough, fever and | | | feeling feverish starting yesterday. The patient did not get a | | | flu immunization this year. RS | + + + Encounter Details +--------+---------+ + + + | Date | Type | Department | Care Team | Description | +--------+---------+ + + + | 09/30/ | Office | [facility] | Constance Posadas | Upper respiratory | | 2016 | Visit | Medicine [address] | V [address] | infection, viral | | | | [facility], | St [place], [place] | (Primary Dx) | | | | [place] [address] | [address] | | | | | [phone] | [phone] | | | | | | | [...] + + + | Blood Pressure | 110/84 | 09/30/2016 4:13 PM | | | | | PDT | | + + + + + | Pulse | 118 | 09/30/2016 4:13 PM | | | | | PDT | | + + + + + | Temperature | 37.4 C (99.4 F) | 09/30/2016 4:13 PM | | | | | PDT | | + + + + + | Respiratory Rate | - | - | | + + + + + | Oxygen Saturation | 95% | 09/30/2016 4:13 PM | | | | | PDT | | + + + + + | Inhaled Oxygen | - | - | | | Concentration | | | | + + + + + | Weight | 108 kg (238 lb) | 09/30/2016 4:13 PM | | | | | PDT | | + + + + + | Height | 160 cm (5' 3") | 09/30/2016 4:13 PM | | | | | PDT | | + + + + + | Body Mass Index | 42.16 | 09/30/2016 4:13 PM | | | | | PDT | | + + + + + documented in this encounter Patient Instructions Patient Instructions Constance Posadas PA - 09/30/2016 4:30 PM PDT* I have prescribed yo u tessalon perles to try for cough. * I also recommend Nyquil in the evenings if you tolerate this well. * Use a Baldwin Pot Morning and night (you can pick one up at the pharmacy) * Steam as needed for cough and chest congestion (e.g., from shower or bath) to loosen secr etions. * Apply warm facial packs for 5-10 minutes 3-4 times a day to promote drainage if congested * Do salt water gargles as needed for sore throat * You can elevate the head of your bed to promote sinus drainage * Drink plenty of clear liquids * Eat healthy food * Get plenty of rest * Avoid cigarette smoke At this time you do not need antibiotics as there is no evidence of bacterial infection tod ay on your exam and antibiotics do not prevent bacterial complications such as pneumonia. Follow up with your regular doctor if your symptoms are not improving after 10-14 days. Be seen immediately if you develop difficulty breathing or high fever. documented in this encounter Progress Notes Constance Posadas PA - 09/30/2016 4:30 PM PDT [place] [address] [place] [address] Patient: Elizabet Turcios : 1995 PCP: ARTHUR Waters CHIEF COMPLAINT Chief Complaint Patient presents with Cold Symptoms The patient presents to discuss cold symptoms, cough, fever and feeling feverish starting yesterday. The patient did not get a flu immunization this year. RS HPI Elizabet Turcios is a 21 y.o. female who presents with cough, cold, ST, and subjec tive fever x 3 days, worse last night. Other symptoms include: none. Patient has been breath ing without wheezing, SOB, or accessory muscle use. Patient has no history of asthma or other respiratory problems. Treatments provided prior to arrival: sleep. Sick contacts or recent exposures: boyfriend with similar symptoms. REVIEW OF SYSTEMS Review of Systems Constitutional: Positive for appetite change and fatigue. HENT: Positive for congestion and sore throat. Negative for ear pain and trouble swallowing . Eyes: Negative for photophobia, discharge, redness, itching and visual disturbance. Respiratory: Positive for cough and chest tightness. Negative for shortness of breath and w heezing. Gastrointestinal: Negative for abdominal pain, diarrhea, nausea and vomiting. Genitourinary: Negative for dysuria. Skin: Negative for rash. Neurological: Positive for headaches. Negative for syncope, weakness and numbness. PROBLEM LIST There are no active problems to display for this patient. CURRENT MEDICATIONS Current Medications Patient is Taking: Benzonatate 100 Mg Capsule - 1-2 capsules three times daily as needed for cough. Reviewed. ALLERGIES Allergies Allergen Reactions Peanut Anaphylaxis Lactose Stomach Upset Reviewed, no change. PHYSICAL EXAM VITAL SIGNS: BP 110/84 | Pulse 118 | Temp (Src) 37.4 C (99.4 F) (Oral) | Ht 1.6 m (5' 3 ") | Wt 108 kg (238 lb) | SpO2 95% | BMI 42.16 kg/(m^2) General: Well developed, well nourished 20 [...] symmetric range of motion. Thorax & Lungs: Clear to auscultation bilaterally with equal breath sounds, no wheezes, ra les or ronchi. No respiratory distress. Chest wall non-tender. Cardiovascular: Normal rate and rhythm [...] past 4 hour(s)). Orders Placed This Encounter triamcinolone acetonide 0.1 % topical ointment benzonatate (TESSALON PERLES) 100 mg oral capsule ASSESSMENT & PLAN 1. Upper respiratory infection, viral The etiology of the patient's symptoms appears viral this time. The patient is nontoxic an d looks well clinically. Currently there is no significant shortness of breath, dysphagia, oropharyngeal asymmetry, or other red flags in regards to symptoms or physical exam. Follow up: Return if symptoms worsen or fail to improve. The patient voices her understanding, agreement, and ability with these discharge instructi ons. documented in this encounter Plan of Treatment Not on filedocumented as of this encounter Visit Diagnoses + + | Diagnosis | + + | Upper respiratory infection, viral - Primary | + + documented in this encounter
--- OUTSIDE RECORDS SUMMARY | ~2019-05-12 | XMS | Encounter Summary ---
Demographics + + + | Address | [address] | | | [place] [address] | + + + | Home Phone | | + + + | Preferred Language | Unknown | + + + | Marital Status | Single | + + + | Shinto Affiliation | NRP | + + + | Race | White | + + + | Ethnic Group | Not or | + + + Author + + + | Author | [facility] | + + + | Organization | [facility] | + + + | Address | Unknown | + + + | Phone | Unavailable | + + + Support + + + + + | Name | Relationship | Address | Phone | + + + + + | Anderson Rose | ECON | [address] | | | [place] | | [place] [address] | | + + + + + | Gracie Turcios | ECON | [place] | | + + + + + Care Team Providers + +------+ + | Care Community Health Outreach Worker Name | Role | Phone | + +------+ + | Anihsa Rivera | PCP | | + +------+ + Encounter Details +--------+ + + + + | Date | Type | Department | Care Team | Description | +--------+ + + + + | 12/28/ | Orders Only | [place] | Jennifer Burgos MD | Bleeding in early | | 2016 | | [facility] [address] | | | | | | E | | | | | | [address] [place], [place] | | | | | | [address] | | | | | | [phone] | | | +--------+ + + + [...] | + +--------+ + + + | HCG BETA QUANT, | Routin | 12/29/2015 | Bleeding in early | Results for this | | PLASMA | e | 2:08 PM | | procedure are in the | | | | PDT | | results section. | + +--------+ + + + documented in this encounter Results HCG BETA, PLASMA (12/29/2015 2:08 PM PDT) + +-------+ + + + | Component | Value | Ref Range | Performed | Pathologist | | | | | At | Signature | + +-------+ + + + | HCG BETA, | <0 | mIU/mL | [facility] | | | PLASMA | | | [...] | [place] | And | [place] [address] | [phone] | | MEDICAL [facility]ENTER | Streets | | | + + + + + documented in this encounter Visit Diagnoses + + | Diagnosis | + + | Bleeding in early Unspecified hemorrhage in early , unspecified as | | to episode of care | + + documented in this encounter"
--- OUTSIDE RECORDS SUMMARY | ~2019-05-12 | XMS | Encounter Summary ---
Demographics + + + | Address | [address] | | | [place] [address] | + + + | Home Phone [...] Author + + + | Author | [facility] | + + + | Organization | [facility] | + + + | Address | Unknown | + + + | Phone | Unavailable | + + + Support + + + + + | Name | Relationship | Address | Phone | + + + + + | Anderson Rose | ECON | [address] | | | [place] | | [place] [address] | | + + + + + | Gracie Turcios | ECON | [place] | | + + + + + Care Team Providers + +------+ + | Care Python Engineer Name | Role | Phone | + +------+ + | Anisha Rivera | PCP | | + +------+ + Reason for Visit + + + | Reason | Comments | + + + | Obstetric | | | examination | | + + + Encounter Details +--------+ + + + + | Date | Type | Department | Care Team | Description | +--------+ + + + + | 01/07/ | | [facility] | Fiorella Reno, | Obstetric | | 2018 | | [facility] | CNM [address] | examination | | | | [address] | [address] | | | | | [address] [place], [place] | [place], [place] | | | | | [address] | [address] | | | | | [phone] | [phone] | | | | | | | [...] + + + | Blood Pressure | 112/70 | 01/07/2018 7:09 AM | | | | | PDT [...] + + + + | Weight | 110.2 kg (243 lb) | 01/07/2018 7:09 AM | | | | | PDT | | + + + + + | Height | - | - | | + + + + + | Body Mass Index | 44.43 | 01/05/2018 3:52 PM | | | | | PDT | | + + + + + documented in this encounter Patient Instructions Patient Instructions Tawana Roy MA - 01/07/2018 7:15 AM PDTFormatting of this note migh t be different from the original. Ready chapters 4 and 17 in your book. Exercise Don t stop moving now! If you have a regular exercise routine, keep at it. If you don t exercise regularly we want you to start we recommend an accumulated amount of mod erate intensity exercise for 30 minutes most, if not all, days of the week. A brisk walk is a good way to start. Regular exercise may be especially important for obese women, and may actually help prevent gestational diabetes. There are always exceptions to rules, so if you think you have a special health concern dis cuss this with your doctor or medical radiation tech. There are also some extreme variations of exercise that you might want to avoid, such as: ? extreme exertion above 6,000 feet ? contact sports (ice hockey, soccer, basketball) ? potential for falls (gymnastics, horseback riding, downhill skiing, some racquet sports) ? scuba diving Weight gain All women (and their babies!) will benefit from a weight gain within the goals see n below. These guidelines are tailored to a woman s Body Mass Index (the BMI), a formula that accounts for height and weight. BMI Recommended Weight Gain (lbs) <18.5 28-40 18-24.9 25-35 25-29.9 15-25 30-34.9 11-20 >35 0-9 Last 1 Encounter BMI Readings: Date BMI 01/05/2018 44.07 kg/m2 Women who are underweight (low BMI) may need to gain relatively more weight to ensure optim al health. Women who are overweight (higher BMI) may not need to gain much, if any, additio nal weight during . Ask your doctor or medical radiation tech how you re doing and what strateg y might be best for you. Consuming too many calories, and especially too many empty calories (high-calorie vlad ds with little nutritional value), can be a problem. Not only is that weight difficult to l ose after your , but the additional calories may increase your risk for gestational diabetes, caesarean section, large baby, high blood pressure, delivery and poor wou nd healing. Try replacing empty calorie foods with these: * vegetable sticks, seasoned with a little ranch dressing * hard-boiled eggs * string cheese sticks or individual-sized cheddar cheese * an apple and peanut butter * a handful of nuts Miscarriage Lastly, a word about miscarriage. Unfortunately, miscarriages are very common. We know th at approximately 20% of pregnancies end in miscarriage. However, another 20% of healthy pre gnancies have bleeding in early . Not all uterine cramping or vaginal bleeding res ults in miscarriage. A small spot of vaginal blood in your underwear or on the toilet paper is usually nothing to worry about. Also, the occasional cramp in your uterus is probably n ot an indication of a miscarriage. However, if you experience continuous cramping and have bleeding more like a period, please let us know. The good news is if you saw a little heartb eat at your visit today your chances of miscarriage have just dropped dramatically! Weeks 10 to 14 of Your : Care Instructions Your Care Instructions By weeks 10 to 14 of your , the placenta has formed inside your uterus. It is poss ible to hear your baby's heartbeat with a special ultrasound device. Your baby's eyes can an d do move. The arms and legs can bend. This is a good time to think about testing for defects. There are two types of tests: screening and diagnostic. Screening tests show the chance that a baby has a certain d efect. They can't tell you for sure that your baby has a problem. Diagnostic tests show if a baby has a certain defect. It's your choice whether to have these tests. You and your partner can talk to your doctor or medical radiation tech about defects tests. Follow-up care is a emerson part of your treatment and safety. Be sure to make and go to all ap pointments, and call your doctor if you are having problems. It's also a good idea to know y our test results and keep a list of the medicines you take. How can you care for yourself at home? Decide about tests You can have screening tests and diagnostic tests to check for defects. The decisi on to have a test for defects is personal. Think about your age, your chance of passin g on a family disease, your need to know about any problems, and what you might do after you have the test results. Triple or quadruple (quad) blood tests. These screening tests can be done between 15 and 20 weeks of . They check the amounts of three or four substances in your blood. e doctor looks at these test results, along with your age and other factors, to find out the chance that your baby may have certain problems. Amniocentesis. This diagnostic test is used to look for chromosomal problems in the baby 's cells. It can be done between 15 and 20 weeks of , usually around week 16. Nuchal translucency test. This test uses ultrasound to measure the thickness of the area at the back of the baby's neck. An increase in the thickness can be an early sign of Down s yndrome. Chorionic villus sampling (CVS). This is a test that looks for certain genetic problems with your baby. The same genes that are in your baby are in the placenta. A small piece of t he placenta is taken out and tested. This test is done when you are 10 to 13 weeks . Ease discomfort Slow down and take naps when you feel tired. If your emotions swing, talk to someone. Crying, anxiety, and concentration problems are common. If your gums bleed, try a softer toothbrush. If your gums are puffy and bleed a lot, see your dentist. If you feel dizzy: Get up slowly after sitting or lying down. Drink plenty of fluids. Eat small snacks to keep your blood sugar stable. Put your head between your legs as though you were tying your shoelaces. Lie down with your legs higher than your head. Use pillows to prop up your feet. If you have a headache: Lie down. Ask your partner or a good friend for a neck massage. Try cool cloths over your forehead or across the back of your neck. Use acetaminophen (Tylenol) for pain relief. Do not use nonsteroidal anti-inflammatory d rugs (NSAIDs), such as ibuprofen (Advil, Motrin) or naproxen (Aleve), unless your doctor say s it is okay. If you have a nosebleed, pinch your nose gently, and hold it for a short while. To preve nt nosebleeds, try massaging a small dab of petroleum jelly, such as Vaseline, in your nostr ils. If your nose is stuffed up, try saline (saltwater) nose sprays. Do not use decongestant sprays. Care for your breasts Wear a bra that gives you good support. Know that changes in your breasts are normal. Your breasts may get larger and more tender. Tenderness usually gets better by 12 weeks. Your nipples may get darker and larger, and small bumps around your nipples may show mor e. The veins in your chest and breasts may show more. Don't worry about "toughening'" your nipples. will naturally do this. Where can you learn more? To learn more about "Weeks 10 to 14 of Your : Care Instructions", log into your My Chart account at [email or web address]. You can enter E090 in the "Health Library" [facility] box. Not on SABIAhart? Review the MyChart section of your After Visit Summary for directions on jean-claude w to sign up. Current as of: May 06, 2017 Content Version: 11.7 [id number] [employer]. Care instructions adapted under license by [facility] [employer] [place]. If you have questions about a medical condition or this instr uction, always ask your healthcare professional. [employer] disclaims any frederic anty or liability for your use of this information. documented in this encounter Progress Notes Fiorella Reno, TISHA - 01/07/2018 7:15 AM PDT OB Initial Note Patient Information Elizabet Turcios is a 22 y.o. female T0 P0 L0 Mult0 Ect0 at 12w0d by LMP a nd early ultrasound who presents for first ob visit. She has experienced nausea and some vom iting. She was feeling better but then got sick today. She tried unisom but it was too fatig uing for work. She has an Rx for Reglan but hasn't picked it up yet. She is otherwise doing well. She works for the [employer] and works almost every day with rare days off. She st ates that this is the expectation for working and she and her partner have talked about her needed to cut back as the progresses. History is complicated by obesity. She has had weight loss in due to nausea and v omiting. She does feel that most of the time she keeps fluids down well. Her appetite hasn't been very good. She states her past nutrition wasn't that healthy, she is a picky eater. Sh milo has declined a nutrition consult. She had elevated HgA1c at 5.7, she is unable to start di abetes screen now but will return this afternoon to do an early 1 hour gtt. This will be her first pap smear today. Review of Systems: Negative except for as mentioned in HPI History History: T0 P0 L0 Mult0 Ect0 OB History Para Term AB Living 2 0 0 0 1 0 SAB TAB Ectopic Multiple Live Births 1 0 0 0 # Outcome Date GA Lbr Naun/2nd Weight Sex Delivery Anes PTL Lv 2 Current 1 SAB 12/2015 Comments: Period 2 weeks late, 2 positive home tests, started bleeding w ith hcg quant of 0 Patient Active Problem List Diagnosis Date Noted BMI 40.0-44.9, adult (HCC) 01/05/2018 Overview Note: 01/07/18: HgA1c 5.7, instructed on completing early 1hr gtt today. Baseline PreEclampsia l abs normal. 24 hour urine protein is ordered. Reviewed ASA recommendations and this was orde red. Instructed to start taking daily. She has declined nutrition consult. Encouraged exerci se and healthy diet, weight gain recommendations reviewed. mp High-risk in first trimester 12/01/2017 Overview Note: FOB: Second Parent Name: Anderson [place] 8-10 WEEKS (Intake & First tri U/S): Labs: [X] Rh: Lab Results Component Value Date ABO A 01/05/2018 RH Negative 01/05/2018 [ ] Antibody screen: [ ] GC/CT: No results found for: CHLAMPROBE, GCPROBE [ ] Pap: No previous due to age [ ] Urine Cx: 12-13 WEEKS (Nuchal/Exam) Carrier Screening: [ ] CF [ ] SMA Genetic Screening: [ ] SequentialScreen [ ] NIPT [ ] Nuchal U/S: mm [ ] Flu Shot (Sep-May) 16-18 WEEKS [ ] 2nd Sequential Screen [ ] NSAFP [ ] AFP4 20 WEEKS [ ] Ultrasound 19-20 weeks: SEX: [ ] Completion anatomy: [ ] Birthing classes 26-28 WEEKS [ ] Tdap (27-36 wks): [ ] Rhogam (28 wks) [ ] 1hr gtt at 24-28wks: [ ] 3hr gtt: [ ] CBC and antibody screen (if Rh negative): 30 WEEKS [ ] Repeat surgical booking? [ ] Sterilization consent: 36 WEEKS [ ] GBS at 35wks: [ ] ppBCM: [ ] Breast Pump prescription: ULTRASOUNDS [ ] Growth or JUANI Reason: NST Frequency: Reason: Family History Problem Relation Diabetes Paternal Grandfather Heart Attack Paternal Grandfather [address] from second Diabetes Maternal Grandfather Thyroid Maternal Grandfather Cancer Maternal Aunt Cancer Maternal Uncle Thyroid Maternal Grandmother Other Mother benign tumor behind ear, deaf in ear now, multiple surgeries Other Brother benign tumor in knee Psychiatry Brother ADHD Diabetes Paternal Grandmother Diabetes Paternal Aunt Diabetes Paternal Aunt Past Medical History: Diagnosis Date Chronic back pain Eczema Seasonal allergies History Smoking Status Never Smoker Smokeless Tobacco Never Used History Alcohol Use No History Drug Use No Current Outpatient Prescriptions Medication Sig albuterol 90 mcg/actuation inhalation HFA aerosol inhaler Inhale 1-2 puffs by mouth yuriy ry four hours as needed. aspirin chewable 81 mg oral tablet,chewable Chew and swallow 1 tablet once daily. beclomethasone (QVAR) 40 mcg/actuation inhalation aerosol Inhale 2 puffs two times shar y. metoclopramide HCl (REGLAN) 10 mg oral tablet Take 1 tablet by mouth every six hours as needed. vits62/FA/om3/dha/epa ( GUMMY ORAL) Take by mouth. No current facility-administered medications for this visit. Allergies: Peanut; Penicillin; and Lactose BP 112/70 | Wt 110.2 kg (243 lb) | LMP 10/15/2017 | BMI 44.43 kg/(m^2) GENERAL PHYSICAL EXAM: General: This is a well appearing, Obese, white female in no apparent distress. Skin: Warm, dry and no rashes or lesions. HEENT: Normocephalic. Extraocular muscles intact. Neck: Supple. Trachea midline. No thyromegaly. No cervical or supraclavicular lymphadenop athy. Breasts: Symmetric. No dominant masses. No skin changes. No nipple discharge. No axillary lymphadenopathy. Heart: Regular rate and rhythm. No murmur appreciated Lungs: Clear to auscultation bilaterally. Abdomen: Soft. Non-tender. No Rebound. No mass. Musculoskeletal: Normal. Extremities: No edema. Non-tender. Neurological: Normal Psych: Normal mood and affect PELVIC EXAM: External Genitalia: Normal contour. No lesions. Urethral Meatus: Normal in appearance. Bartholin's and Alburtis's Glands: Normal in appearance. Vagina: Well estrogenized. Well rugated. No lesions. Cervix: No lesions. Negative CMT. Uterus: Non-tender. Rectum: Exam deferred Anus and Perineum: No lesions. Other Exam Findings: pap smear obtained. Assessment: Elizabet Turcios is a 22 y.o. female T0 P0 L0 Mult0 Ect0 at 12w0d by LMP w ith complicated by obesity and n/v. Plan: labs ordered and reviewed. Ultrasound scheduled: NT sono today. Anatomy scan at 18-20 wks. Discussed genetic screening & pt has decided to have SS and NT sono. Her partner was tested for CF with his prior partner and was reportedly negative. She therefore is declining testi ng. She is uncertain about SMA and expanded carrier screening. She plans to review the infor mation given to her more and then decide. Obesity: Reviewed weight gain recommendations, encouraged healthy eating and exercise. Inst ructed on starting daily 81mg ASA. Early 1hr gtt today for elevated HgA1c. PreEclampsia labs completed with 24 hour urine pending. Plan growth at 30 & 36w, weekly NST at 36w. N/V: Instructed to start Reglan. Small frequent meals and fluids. Encouraged her to try B6. She will call if n/v continues despite treatment plan. & Childbirth Book provided FIORELLA RENO CNM Tawana Chandra MA - 01/07/2018 7:15 AM PDTPt has no questions or concerns. TAWANA ROY MA Electronically sign ed by Tawana Roy MA at 01/07/2018 9:09 AM PDTdocumented in this encounter Plan of Treatment Not on filedocumented as of this encounter Procedures + +--------+ + + + | Procedure Name | Priori | Date/Time | Associated Diagnosis | Comments | | | ty | | | | + +--------+ + + + | PAP ONLY | Routin | 01/07/2018 | Special screening | Results for this | | | e | 7:29 AM | examination for | procedure are in the | | | | PDT | human papillomavirus | results section. | | | | | (HPV) Screening | | | | | | for cervical cancer | | + +--------+ + + + documented in this encounter Results PAP ONLY (01/07/2018 7:29 AM PDT) + + + + + + | Component | Value | Ref Range | Performed | Pathologist | | | | | At | Signature | + + + + + + | SOURCE | SEE NOTEComment: Cervix | | [facility] | | | | | | [facility] | | | | | | - [place] | | + + + + + + | CLINICAL | SEE NOTEComment: | | [facility] | | | INFORMATION | | | [facility] | | | | | | - [place] | | + + + + + + | LMP | SEE NOTEComment: | | [facility] | | | | 5-2-2017 | | [facility] | | | | | | - [place] | | + + + + + + | PREVIOUS | SEE NOTEComment: N/A | | [facility] | | | PAP | | | [facility] | | | | | | - [place] | | + + + + + + | PREVIOUS | SEE NOTEComment: N/A | | [facility] | | | BIOPSY | | | [facility] | | | | | | - [place] | | + + + + + + | ADEQUACY | SEE NOTEComment: | | [facility] | | | | Satisfactory for | | DI[facility]ICS | | | | evaluation.Endocervical/ | | - [facility] | | | | transformation zone | | | | | | component absent. | | | | + + + + + + | INTERPRETAT | SEE NOTEComment: | | [facility] | | | ION-RESULT | Negative for | | DI[facility]NOSTICS | | | | intraepithelial lesion | | - | | | | or malignancy. | | | | + + + + + + | COMMENT | SEE NOTEComment: This | | [facility] | | | | Pap test has been | | DIAGNOSTICS | | | | evaluated with | | - | | | | computerassisted | | | | | | technology. | | | | + + + + + + | CYTOTECHNOL | SEE NOTEComment: ALG, | | [facility] | | | OGIST | CT(ASCP)CT screening | | DI[facility]ICS | | | | location: [facility] | | - | | | | [address] | | | | | | [id number] | | | | | |[id number] | | | | + + + + + + | INFECTION | SEE NOTEComment: Shift | | [facility] | | | | in vaginal luis | | DIAGNOSTICS | | | | suggestive of | | - [facility] | | | | bacterialvaginosis. | | | | + + + + + + | SEE NOTE | SEE NOTEComment: | | [facility] | | | | EXPLANATORY NOTE: The | | DIAGNOSTICS | | | | Pap is a screening test | | - [place] | | | | for cervical cancer. It | | | | | | is not a diagnostic test | | | | | | and is subject to false | | | | | | negative and false | | | | | | positive results. It is | | | | | | most reliable when a | | | | | | satisfactory sample, | | | | | | regularly obtained, is | | | | | | submitted with relevant | | | | | | clinical findings and | | | | | | history, and when the | | | | | | Pap result is evaluated | | | | | | along with historic and | | | | | | current clinical | | | | | | information. | | | | + + + + + + + + | Specimen | + + | Tissue - Cervix | | uteri structure | | (body structure) | + + + + + + + | Performing | Address | City/State/Zipcode | Phone Number | | Organization | | | | + + + + + | [facility] | [address] | [place] [address] | | | - [place] | [address] | | | + + + + + documented in this encounter Visit Diagnoses + + | Diagnosis | + + | Special screening examination for human papillomavirus (HPV) - Primary | + + | High-risk in first trimester | + + | Screening for cervical cancer Screening for malignant neoplasm of the cervix | + + | BMI 40.0-44.9, adult (HCC) Body Mass Index 40.0-44.9, adult | + + documented in this encounter
--- OUTSIDE RECORDS SUMMARY | ~2019-05-12 | XMS | Encounter Summary ---
Demographics + + + | Address | [address] | | | [place] [address] | + + + | Home Phone | | + + + | Preferred Language | Unknown | + + + | Marital Status | Single | + + + | Islam Affiliation | NRP | + + + [...] | | [place] | | [place] [address] | | + + + + + | Gracie Turcios | ECON | [place] | | + + + + + Care Team Providers + +------+ + | Care Educational Program Director Name | Role | Phone | + +------+ + | Anisha Rivera | PCP | | + +------+ + Reason for Visit + + + | Reason | Comments | + + + | Lab Results | | + + + Encounter Details +--------+ + + + + | Date | Type | Department | Care Team | Description | +--------+ + + + + | 01/06/ | Telephone | [facility] | Natasha Jones, | Lab Results | | 2017 | | [facility] [address] | [address] [place], [place] | | | | | [address] [place], [place] | [address] | | | | | [address] | [phone] | | | | | [phone] | | | +--------+ + + + [...] on filedocumented as of this encounter Results PROTEIN, URINE (01/12/2018 6:39 AM PDT) + +-------+ + + + | Component | Value | Ref Range | Performed | Pathologist | | | | | At | Signature | + +-------+ + + + | PROTEIN,URI | 93 | <150 | [facility] | | | NE | | mg/col.time | A MEDICAL | | | | | | CENTER | | + +-------+ + + + | PROTEIN | 5 | mg/dL | [facility] | | | CONC URINE | | | A MEDICAL | | | | | | CENTER | | + +-------+ + + + | UR | 24.0 | Hr | [facility] | | | COLLECTION | | | A MEDICAL | | | TIME | | | CENTER | | + +-------+ + + + | URINE | 1,850 | mL | [facility] | | | VOLUME | | | A MEDICAL | | | | | | CENTER | | + +-------+ + + + | PROTEIN/CRE | 0.07 | <0.16 mg/mg | [facility] | | [...] | + + + + + | [facility] | And | [place] [address] | [phone] | | MEDICAL CENTER | Streets | | | + + + + + GLUCOSE TOLERANCE TEST, 1 HOUR (01/07/2018 3:52 PM PDT) + +---------+ + + + | Component | Value | Ref Range | Performed | Pathologist | | | | | At | Signature | + +---------+ + + + | 1 HOUR | 183 (H) | <130 mg/dL | [facility] | | | GLUCOSE - | | | A MEDICAL | | | 1GT | | | CENTER | | + +---------+ + + + + + | Specimen | + + | Blood - Blood | | (substance) | + + + + + | Narrative | Performed At | + + + | This test is to be used for the diagnosis of gestational diabetes | [facility] | | only. | MEDICAL CENTER | + + + + + + + + | Performing | Address | City/State/Zipcode | Phone Number | | Organization | | | | + + + + + | [facility] | [place] | [place] [address] | [phone] | | [facility] | Streets | | | + + + + + documented in this encounter Visit Diagnoses + + | Diagnosis | + + | Elevated hemoglobin A1c - Primary Other abnormal blood chemistry | + + | BMI 40.0-44.9, adult (HCC) Body Mass Index 40.0-44.9, adult | + + documented in this encounter"
--- OUTSIDE RECORDS SUMMARY | ~2019-05-12 | XMS | Encounter Summary ---
Demographics + + + | Address | [address] | | | [place] [address] | + + + | Home Phone [...] | | [place] | | [place] [address] | | + + + + + | Gracie Turcios | ECON | [place] | | + + + + + Care Team Providers + +------+ + | Care Blunger Machine Operator Name | Role | Phone [...] | +--------+ + + + + | 07/17/ | Anesthesia | Maternity Services | Say Dallas | | | 2019 | Event | [facility] | MD Courtney | | | | | [address] | | | | | | [place] | | | | | | [address] | | | | | | [phone] | | | +--------+ + + + + Anesthesia Record + + + + + | Procedure Name | Responsible | Anesthesia Start | Anesthesia Stop Time | | | Anesthesiologist | Time | | + + + + + | LABOR EPIDURAL | Say Dallas, | 07/17/181813 | 07/17/181921 | | | MD | | | + + + + + +----+---+ + + | Da | T | Event | Comment | | te | i | | | | | m | | | | | e | | | +----+---+ + + | 02 | 1 | Eq Check | Anesthesia machine checked Equipment verified | | /0 | 8 | | | | 1/ | 1 | | | | 20 | 0 | | | | 19 | | | | +----+---+ + + | | 1 | Pt. Check | Prior to anesthesia start, pt. Identified, examined, chart | | | 8 | | reviewed, PARSavanah held, anesthetic plan made or approved by | | | 1 | | attending anesthesiologist. NPO status confirmed as appropriate | | | 1 | | for procedure Preoperative evaluation: unchanged | +----+---+ + + | | 1 | An Start | | | | 8 | Data | | | | 1 | | | | | 2 | | | +----+---+ + + | | 1 | Vitals | Monitors applied Vital signs checked Patient ready for anesthesia | | | 8 | Checked | | | | 1 | | | | | 3 | | | +----+---+ + + | | 1 | An Start | | | | 8 | | | | | 1 | | | | | 4 | | | +----+---+ + + | | 1 | an leo now | Test Dose--> negative | | | 8 | | | | | 3 | | | | | 0 | | | +----+---+ + + | | 1 | an leo now | Check sensory level of patient at T6 | | | 9 | | | | | 1 | | | | | 9 | | | +----+---+ + + | | 1 | Anesthesia | | | | 9 | End | | | | 2 | | | | | 2 | | | +----+---+ + + | | 1 | PACU Rpt | | | | 9 | Given | | | | 2 | | | | | 3 | | | +----+---+ + + +------+ | Meds | +------+ + + + | Name | Total | + + + | lidocaine inj 1% | 5 mL | + + + | bupivacaine 0.125%-fentaNYL 3 | 5.4 mL | | mcg/mL EPIDURAL infusion | | + + + | lidocaine inj 1.5% | 3 mL | + + + | EPINEPHrine PF 1 mg/mL (1:1000) | 0.015 mg | + + + | bupivacaine inj 0.25% | 12 mL | + + + | fentaNYL inj | 100 mcg | + + + | lactated ringers IV infusion | 1,000 mL | + + + + + | No agents on file. | + + + + | No blood administrations on file. | + + +--------+ + + + | Type | Details | Placement | Removal | +--------+ + + + | Incisi | 07/17/18; incision by Dr. Lopez; | 07/17/18 0000 by | | | on | Lower, Transverse; adb- lower | Lana Shaw RN | | | | quadrant | | | +--------+ + + + | Periph | 07/15/18; 2114; Jennifer Arroyo RN; | 07/15/182114 by | 07/19/18 103 by | | eral | Left; Hand; 18 g; None; No; | Marino Arroyo RN | Keyla Jones RN | | IV | Positive; 07/19/18; 1030; Per | | | | | order | | | +--------+ + + + | Epidur | 07/17/18; 1814 (created via | 07/17/181814 by | 07/17/182239 by | | al | procedure documentation); Lumbar; | Say Dallas, | Cyrus Aceves RN | | | 07/17/18; 2239; Other (Comment) | MD | | | | (pt. to [place], removed by | | | | | Burt) | | | +--------+ + + + documented in this encounter Social History + +-------+ +--------+------+ | Tobacco [...] | + +--------+ + + + | ANE EPIDURAL | Routin | 07/17/2018 | | | | | e | 6:15 PM | | | | | | PST | | | + +--------+ + + + +---+--------+ | | | | | Proced | | | ure | | | Note - | | | | | | Uriel | | | on, | | | Cal | | | s K, | | | MD - | | | | | | 2018 | | | 6:15 | | | PM PST | | | | | | PROCED | | | URE | | | NAMEEp | | | idural | | | or | | | Caudal | | | Inform | | | ationS | | | tart | | | Time: | | | 07/17/19 | | | 19 | | | 6:15 | | | PMEpid | | | ural. | | | for | | | labor | | | analge | | | kam. | | | Locati | | | on | | | perfor | | | med: | | | Floor/ | | | Unit/I | | | CU | | | The | | | patien | | | t was | | | identi | | | fied, | | | the | | | site | | | marked | | | ,, | | | full | | | PARQ | | | done | | | Adult | | | or | | | Pediat | | | faviola: | | | AdultP | | | rocedu | | | rePati | | | ent | | | positi | | | on: | | | Sittin | | | g, | | | Epidur | | | al | | | approa | | | ch: | | | Midlin | | | e, | | | Monito | | | rs: | | | NIBP | | | and | | | SpO2, | | | Supple | | | mental | | | | | | Oxygen | | | | | | Given, | | | | | | Steril | | | e prep | | | | | | (Chlor | | | aPrep | | | and | | | Betadi | | | ne) | | | drape | | | and | | | techni | | | que | | | Needle | | | Tuohy | | | with | | | a 17g | | | | | | Needle | | | | | | insert | | | ion | | | depth | | | 9 cm | | | Cathet | | | er | | | depth | | | 13 cm | | | Depth | | | at | | | loss | | | of | | | resist | | | ance 9 | | | cm | | | on the | | | 2nd | | | attemp | | | t | | | Parest | | | hesia: | | | No. | | | Negati | | | ve for | | | | | | blood. | | | | | | Verteb | | | ral | | | Inters | | | pace: | | | L3-4 | | | | | | CSF: | | | Aspira | | | tion | | | negati | | | ve for | | | CSF, | | | | | | Sensor | | | y | | | Band:S | | | manju: | | | bilate | | | ral, | | | Tested | | | : | | | Temper | | | ature | | | sensat | | | ion to | | | | | | alcoho | | | l | | | swab, | | | Upper | | | Level: | | | T8, | | | HEIDI: | | | air | | | Assess | | | mentNa | | | rrativ | | | e | +---+--------+ documented in this encounter Visit Diagnoses Not on filedocumented in this encounter Administered Medications + +--------+ +------+------+------+ | Medication Order | MAR | Action | Dose | Rate | Site | | | Action | Date | | | | + +--------+ +------+------+------+ | bupivacaine (PF) | Given | 07/17/19 | 5 mL | | | | (MARCAINE,SENSORCAINE-MPF) 0.25 % | | 19 6:48 | | | | | (2.5 mg/mL) injection | | PM PST | | | | | INTRAPROCEDURE PRN, Starting Fri | | | | | | | 07/17/18 at 1843, Until Fri07/17/18 | | | | | | | at 1922 | | | | | | + +--------+ +------+------+------+ +-------+ +------+---+---+ | Given | 07/17/19 | 7 mL | | | | | 19 6:43 | | | | | | PM PST | | | | +-------+ +------+---+---+ +---+---+ | | | +---+---+ + +---------+ + + +---+ | bupivacaine 0.125%-fentaNYL 3 | New Bag | 07/17/19 | 12 mL/hr | 12 mL/hr | | | mcg/mL EPIDURAL infusion | | 19 6:55 | | | | | INTRAPROCEDURE CONTINUOUS PRN, | | PM PST | | | | | Starting Fri07/17/18 at 1855, | | | | | | | Until Fri07/17/18 at 1922 | | | | | | + +---------+ + + +---+ +---+---+ | | | +---+---+ + +-------+ + +---+---+ | EPINEPHrine HCl (PF) (ADRENALIN | Given | 07/17/19 | 0.015 mg | | | | PF) injection INTRAPROCEDURE | | 19 6:30 | | | | | PRN, Starting Fri07/17/18 at 1830, | | PM PST | | | | | Until Fri07/17/18 at 1922 | | | | | | + +-------+ + +---+---+ +---+---+ | | | +---+---+ + +-------+ +--------+---+---+ | fentaNYL (SUBLIMAZE) injection | Given | 07/17/19 | 30 mcg | | | | INTRAPROCEDURE PRN, Starting Fri | | 19 6:48 | | | | | 07/17/18 at 1843, Until 07/17/18 | | PM PST | | | | | at 1922 | | | | | | + +-------+ +--------+---+---+ +-------+ +--------+---+---+ | Given | 07/17/19 | 70 mcg | | | | | 19 6:43 | | | | | | PM PST | | | | +-------+ +--------+---+---+ +---+---+ | | | +---+---+ + + + +---+---+---+ | lactated Ringers IV | given by | 07/17/19 | | | | | intravenous, INTRAPROCEDURE | | 19 7:22 | | | | | CONTINUOUS PRN, Starting Fri | anesthes | PM PST | | | | | 07/17/18 at 1810, Until 07/17/18 | iology | | | | | | at 1922 | | | | | | + + + +---+---+---+ +---------+ +---+---+---+ | New Bag | 07/17/19 | | | | | | 19 6:10 | | | | | | PM PST | | | | +---------+ +---+---+---+ +---+---+ | | | +---+---+ + +-------+ +------+---+---+ | Lidocaine HCl (Local Anesth.) | Given | 07/17/19 | 3 mL | | | | 15 mg/mL (1.5 %) jesus Normal, | | 19 6:30 | | | | | Intra Procedure | | PM PST | | | | + +-------+ +------+---+---+ +---+---+ | | | +---+---+ + +-------+ +------+---+---+ | lidocaine PF (XYLOCAINE MPF) 10 | Given | 07/17/19 | 5 mL | | | | mg/mL (1 %) injection | | 19 6:17 | | | | | INTRAPROCEDURE PRN, Starting Fri | | PM PST | | | | | 07/17/18 at 1817, Until 07/17/18 | | | | | | | at 1922 | | | | | | + +-------+ +------+---+---+ +---+---+ | | | +---+---+ documented in this encounter"
--- OUTSIDE RECORDS SUMMARY | ~2019-05-12 | XMS | Encounter Summary ---
Demographics + + + | Address | [address] | | | [place] [address] | + + + | Home Phone | | + + + | Preferred Language | Unknown | + + + | Marital Status | Single | + + + | Catholic Affiliation | NRP | + + + [...] | | [place] | | [place] [address] | | + + + + + | Gracie Turcios | ECON | [place] | | + + + + + Care Team Providers + +------+ + | Care Glassware Maker Demonstrator Name | Role | Phone | + +------+ + | Anisha Rivera | PCP | | + +------+ + Encounter Details +--------+ + + + + | Date | Type | Department | Care Team | Description | +--------+ + + + + | 06/13/ | Child And Family Services Worker | [facility] | Natasha Jones, | | | 2018 | | [facility] [address] | [address] | | | [address] [place], [place] | | | | | [address] [place], [place] | [address] | | | | | [address] | [phone] | | | | | [phone] | | | +--------+ + + + [...]
--- OUTSIDE RECORDS SUMMARY | ~2019-05-12 | XMS | Encounter Summary ---
Demographics + + + | Address | [address] | | | [place] [address] | + + + | Home Phone | | + + + | Preferred Language | Unknown | + + + | Marital Status | Single | + + + | Scientology Affiliation | NRP | + + + | Race | White | + + + | Ethnic Group | Not or | + + + Author + + + | Author | [facility] | + + + | Organization | [facility] | + + + | Address | Unknown | + + + | Phone | Unavailable | + + + Support + + + + + | Name | Relationship | Address | Phone | + + + + + | Anderson Rose | ECON | [address] | | | [place] | | [place] [address] | | + + + + + | Gracie Turcios | ECON | [place] | | + + + + + Care Team Providers + +------+ + | Care Starch Factory Laborer Name | Role | Phone | + +------+ + | Anisha Rivera | PCP | | + +------+ + Reason for Visit + + + | Reason | Comments | + + + | Other | Blood sugar review | + + + | | | + + + Encounter Details +--------+ + + + + | Date | Type | Department | Care Team | Description | +--------+ + + + + | 04/15/ | | [facility] [place] | Pentopoulos, | Other (Blood sugar | | 2018 | | [facility] [address] | MD Leonela [address] | review); | | | | [address] | | | | [address] [place], [place] | [place], [place] | | | | | [address] | [address] | | | | | [phone] | [phone] | | | | | | | [...] + + + | Blood Pressure | 104/68 | 04/15/2018 7:42 AM | | | | | PDT [...] + + + + | Weight | 116.2 kg (256 lb 3.2 | 04/15/2018 7:42 AM | | | | oz) | PDT | | + + + + + | Height | - | - | | + + + + + | Body Mass Index | 46.85 | 03/16/2018 3:13 PM | | | | | PDT | | + + + + + documented in this encounter Patient Instructions Patient Instructions Leonela Luke MD - 04/15/2018 7:45 AM PDTAs we review today, your fasting sugars continue to be elevated. It is now time to start you on medication for your sugars. You are going to take metformin every night. I would like you to continue savi cking sugars first thing in the morning before you eat and 1 hour after breakfast, lunch, an d dinner. I would like you to try and walk for 30 minutes, 30 minutes after dinner each yuriy ervin. This will also help with your sugars. Please follow up in 1 week to review your dominguez pastor. documented in this encounter Progress Notes Leonela Luke MD - 04/15/2018 7:45 AM PDTS: Eliazbet is a at 26w0d who pr esents today to follow up on her blood sugars. She denies any contractions. She has good f etal movement. All fasting blood sugars are elevated. Postprandial levels are within range. O: General: NAD Abdomen: Soft, gravid. Psych: Appropriate mood and affect A: Elizabet is a at 26w0d who presents today to follow up with her blood sugars. P: F/u in 1 weeks to follow up on her blood sugars. Discussed walking 30 min in the evening. Patient is declining starting insulin as she does not like needles. Started on metformin 500 mg in the evening. Advised patient to continue checking sugars 4 times a day. Follow-up in 1 week to review sugars. olly Lacy MA - 04/15/2018 7:45 AM PDTDenies any concerns, states her sugars have been the same since last time she came in. Dolly Lacy MA documented in this enco unter Plan of Treatment Not on filedocumented as of this encounter Visit Diagnoses + + | Diagnosis | + + | High-risk in second trimester - Primary | + + | Diet controlled gestational diabetes mellitus (GDM) in second trimester | + + documented in this encounter"
--- OUTSIDE RECORDS SUMMARY | ~2019-05-12 | XMS | Encounter Summary ---
Demographics + + + | Address | [address] | | | [place] [address] | + + + | Home Phone | | + + + | Preferred Language | Unknown | + + + | Marital Status | Single | + + + | Episcopal Affiliation | NRP | + + + [...] | | [place] | | [place] [address] | | + + + + + | Gracie Turcios | ECON | АНДРЕЙCHARITYEL | | + + + + + Care Team Providers + +------+ + | Care Principal Network Architect Name | Role | Phone | + +------+ + | Anisha Rivera | PCP | | + +------+ + Reason for Visit + + + | Reason | Comments | + + + | Lab Results | GTT | + + + Encounter Details +--------+ + + + + | Date | Type | Department | Care Team | Description | +--------+ + + + + | 01/08/ | Telephone | [facility] | Natasha Jones, | Lab Results (GTT) | | 2018 | | [facility] [address] | MD [address] | | | | | [address] [place], [place] | | | | | [address] [place], [place] | [address] | | | | | [address] | [phone] | | | | | [phone] | | | +--------+ + + + [...] + | Abnormal GTT (glucose tolerance test) - Primary Impaired glucose tolerance test | + + documented in this encounter"
--- OUTSIDE RECORDS SUMMARY | ~2019-05-12 | XMS | Encounter Summary ---
Demographics + + + | Address | [address] | | | [place] [address] | + + + | Home Phone | | + + + | Preferred Language | Unknown | + + + | Marital Status | Single | + + + | Spiritism Affiliation | NRP | + + + [...] | | [place] | | [place] [address] | | + + + + + | Gracie Bullock | ECON | [place]CHARITY[place] | | + + + + + Care Team Providers + +------+ + | Care Supervisor Furnace Room Name | Role | Phone | + [...] | Visit | Medicine [address] | [facility] [address] | back pain without | | | | [address] [place], | [place], [place] | sciatica (Primary | | | | [place] [address] | [address] | Dx) | | | | [phone] | [phone] | | | | | | | [...] front of you at the same time. Dsjb-jj-upxlb exercise 1. Lie on your back with [...] "Low Back Pain: Exercises", log into your [employer] account at [email or web address]/[email or web address]. You can enter [id number] in the "frents Library" search box. Not on MyChart? Review the MyChart section of your After Visit Summary for directions on [place] to sign up. Current as of: November 06, 2015 Content Version: 11.2 7263-7992 [employer]. Care instructions adapted under license by [facility] & [facility]. If you have questions about a medical condition or this instr uction, always ask your healthcare professional. [employer] disclaims any frederic anty or liability for [...] Have a Healthy Back", log into your [employer] unt at [email or web address]/[employer]. You can enter [email or web address] in the "frents Library" search box. Not on [employer]? Review the [employer] section of your After Visit Summary for directions on ho w to sign up. Current as of: November 06, 2015 Content Version: 11.2 7231-0344 [employer]. Care instructions adapted under license by [facility] [employer]. If you have questions about a medical condition or this instr uction, always ask your healthcare professional. [employer] disclaims any frederic anty or liability for [...] daily. , Disp: 3 Package, Rfl: 4 Otfbjaws-Sb-Gvc-Fe-FA ( VITAMIN) oral tablet, Take 1 tablet [...] while working . Ryan GIBSON, DNP Instructor [facility] Family Medicine [facility] Family Medicine P: [phone] F: [phone] Email: [email or web address] Wing MA - 02/11/2017 8:30 AM [...] | + + + | [address] [place] [address] | [facility] | | [place] [address] | DEPARTMENT OF | | [phone] Name: ELIZABET BULLOCK Phys: | RADIOLOGY | | DECLANPOLISebRYAN : 1995 Sex: F | | | CSN: [id number] MR# [id number] Exam Date: | | | 02/11/2017 EXAM: X-RAY SPINE THORACOLUMBAR 2 VIEWS 35539 | | | CLINICAL HISTORY: Back pain [...] Transcribed Date/Time: 02/11/2017 | | | 09:57 [facility] Staff: ALESIA | | + + + + + | Procedure Note | + + | Interface, Radiology Results - 02/11/2017 10:02 AM PDT [address] | | [place] [address] | | Name: ARA,ELIZABET Phys: RYAN ZAPIEN : 1995 Sex: | | F CSN: [id number] MR# [id number] Exam Date: 02/11/2017 EXAM:X-RAY SPINE | | THORACOLUMBAR 2 VIEWS 40504 CLINICAL HISTORY:Back pain near L1, access lordosis, [...] |EXAM: | |X-RAY SPINE THORACOLUMBAR 2 VIEWS 40388 | | | |CLINICAL HISTORY: | |Back [...] | | |Transcribed Date/Time: 02/11/2017 09:57 | |[facility] Staff: FLUENCY | | | | | | [...]
--- OUTSIDE RECORDS SUMMARY | ~2019-05-12 | XMS | Encounter Summary ---
Demographics + + + | Address | [address] | | | [place] [address] | + + + | Home Phone [...] | | Garrett | | [place] [address] | | + + + + + | Gracie Turcios | ECON | АНДРЕЙCHARITYEL | | + + + + + Care Team Providers + +------+ + | Care Superintendent Building Name | Role | Phone | + [...] | +--------+ + + + + | 04/07/ | | [place] | Kapil Rutherford, | | | 2018 | | [facility] [address] | CNM [address] | | | | | [address] | [address] | | | | | [address] [place], [place] | [place], [place] | | | | | [address] | [address] | | | | | [phone] | [phone] | | | | | | | [...] + + + | Blood Pressure | 104/60 | 04/07/2018 3:55 PM | | | | | PDT [...] + + + + | Weight | 118.2 kg (260 lb 9.6 | 04/07/2018 3:55 PM | | | | oz) | PDT | | + + + + + | Height | - | - | | + + + + + | Body Mass Index | 47.65 | 03/16/2018 3:13 PM | | | | | PDT | | + + + + + documented in this encounter Patient Instructions Patient Instructions Dolly Lacy MA - 04/07/2018 3:45 PM PDTPrenatal Visit - Week 24 Screening for Gestational Diabetes, Anemia, and Low Platelets (1 hour glucose tolerance test and complete blood count) This test should be done at 26-28 weeks in . Please avoid high sugar foods prior to the test. Eat a normal, healthy, diet. Expect to stay at our office for 1 to 1.5 hours to complete the test. You will be given a glucose drink called Glucola. You will drink the entire content of the bottle within 5 minutes. Once you drink the Glucola, do NOT eat, sleep, drink fluids, smoke or exercise until after your blood is drawn. We will draw your blood exactly one hour after you have finished the Glucola. Let s talk some more about Labor (also known as premature labor). The most impor tant message is this: if you think you re in labor, we want you to call us. So, who s at risk of having a baby prematurely? The answer is all women. Howev er, if you had a premature baby in a previous you re at a much higher risk. Wom en who smoke cigarettes also have a higher risk. The majority of time when a woman thinks she might be in premature labor, she is not. Even when we suspect that a woman might be in premature labor, most of those women go on to have their baby at term. Thus, it probably goes without saying, that the diagnosis of l abor is difficult. However, we do know this: babies born prematurely have some serious prob lems. Some actually , and others can have problems like blindness and cerebral palsy. F ortunately, there are a couple of important things that we can do that increase the chance o f a happy/healthy outcome for premature babies. So, when should you call us if you think you might be in premature labor? One problem is t hat premature labor can feel different to different women. If you re not sure, call us. Here are some suggestions: ? Painful uterine contractions, that persist beyond one hour ? Uncomfortable uterine contractions, more than 4 in one hour ? Watery vaginal discharge ? Bloody vaginal discharge ? Abdominal pain and the symptoms of infection (fever, chills, muscle aches, or the feeling that you re coming down with the flu) Try these things: 1. stop what you re doing 2. hydrate yourself (at least a couple of glasses of water); 3. empty your bladder 4. lie down 5. take a hot bath. Doing these things often stops the contractions that are NOT premature labor. Who do I call if I think I might be in premature labor? ? The clinic at [phone] ? Labor and Delivery at [phone] Your Blood Type Do you know your blood type? Do you know if you re Rh Positive or Rh Negative? Ask your doctor or cloth printing back tender what your blood type is. If you are Rh Negative (and your baby s fathe r is Rh Positive), there s a possibility that your baby s blood is somewhat incompati ble with yours. If so, there s a small chance that you could make antibodies against y our baby s (or your next baby s) blood. Don t worry. We have a great way to prevent this. For Rh Negative mothers, we can give you an injection of antibodies that will gobble up any of your baby s blood cells that sne ak past the placenta. We need to give you these antibodies at your next visit (28 weeks). After the baby is born we may give you another of these shots (if your baby is Rh Positive). Weeks 22 to 26 of Your : Care Instructions Your Care Instructions As you enter your 7th month of at week 26, your baby's lungs are growing stronger and getting ready to breathe. You may notice that your baby responds to the sound of your o r your partner's voice. You may also notice that your baby does less turning and twisting an d more squirming or jerking. Jerking often means that your baby has the hiccups. Hiccups are perfectly normal and are only temporary. You may want to think about attending a childbirth preparation class. This is also a good t raf to start thinking about whether you want to have pain medicine during labor. Most women are tested for gestational diabetes between weeks 24 and 28. Gestationa l diabetes occurs when your blood sugar level gets too high when you're . The test i s important, because you can have gestational diabetes and not know it. But the condition ca n cause problems for your baby. Follow-up care is a eemrson part of your treatment and safety. Be sure to make and go to all ap pointments, and call your doctor if you are having problems. It's also a good idea to know y our test results and keep a list of the medicines you take. How can you care for yourself at home? Ease discomfort from your baby's kicking Change your position. Sometimes this will cause your baby to change position too. Take a deep breath while you raise your arm over your head. Then breathe out while you d rop your arm. Do Kegel exercises to prevent urine from leaking You can do Kegel exercises while you stand or sit. Squeeze [...] Do three or more sessions each day. Ease or reduce swelling in your feet, ankles, hands, and fingers If your fingers are puffy, take off your rings. Do not eat high-salt foods, such as potato chips. Prop up your feet on a stool or couch as much as possible. Sleep with pillows under your feet. Do not stand for long periods of time or wear tight shoes. Wear support stockings. Where can you learn more? To learn more about "Weeks 22 to 26 of Your : Care Instructions", log into your My Chart account at [email or web address]. You can enter G264 in the "Health Library" [facility] box. Not on [employer]? Review the MyChart section of your After Visit Summary for directions on ho w to sign up. Current as of: May 06, 2017 Content Version: 11.7 [id number] [employer]. Care instructions adapted under license by [facility] [employer] [place]. If you have questions about a medical condition or this instr uction, always ask your healthcare professional. [employer] disclaims any frederic anty or liability for your use of this information. documented in this encounter Progress Notes Kapil Rutherford CNM - 04/07/2018 3:45 PM PDTS: @ 25.1 weeks who presents for [facility] visit. She reports very active movement. She has no other concerns. She has been worki ng hard on testing her blood sugars more regularly. Most days she is testing a couple times a day. She attended one production or plant engineer visit but didn't have follow up. She reports that her naus ea is under good control with Reglan. Without it she does get nausea. She denies abdominal p ain, RUQ or epigastric pain, no reflux or indigestion. She reports her diet as the following : Bfast she often skips. She will have coffee with a coffee mate flavored creamer typically. Lunch: She typically has a julissa cheese lunchable. This consists of tortilla chips and the liquid cheese sauce. Dinner: She most often wants mashed potatoes or mac n cheese. She does not like vegetables that much. She has had a food aversion to meat in the . She states she has been trying to pack snacks more and will sometimes do apples and pb or c heese. O: See flow sheet Abd: gravid, soft, not tender. Fastin,80,98,87,102,98,101 1hr PP:70-133, 1 elevated at 154 A/P GDM: We discussed that 50% of her readings are elevated. I do feel her diet is the main con tributing factor. She would like to make diet changes as well as f/u with production or plant engineer. Will se nd request for f/u visit. Ideas for meal and snack planning reviewed to assist with healthy choices. Instructed to continue QID testing, f/u in 1 week to review blood sugars. Discussed starting metformin with dinner if fasting levels remain elevated. Velamentous cord insertion: S/P MFM consult. Serial growths Q 4-6w starting at 26-28w. NST 1-2x/week at 32w. F/U 1 week Dolly Espinal MA - 04/07/2018 3:45 PM PDTDenies any concerns doing well. Dolly Lacy MA documented in this enco unter Plan of Treatment Not on filedocumented as of this encounter Visit Diagnoses + + | Diagnosis | + + | Diet controlled gestational diabetes mellitus (GDM) in second trimester | + + | BMI 40.0-44.9, adult (HCC) Body Mass Index 40.0-44.9, adult | + + | Velamentous insertion of umbilical cord in second trimester Other umbilical cord | | complications during labor and delivery, unspecified as to episode of care | + + documented in this encounter
--- OUTSIDE RECORDS SUMMARY | ~2019-05-12 | XMS | Encounter Summary ---
Demographics + + + | Address | [address] | | | [place] [address] | + + + | Home Phone | | + + + | Preferred Language | Unknown | + + + | Marital Status | Single | + + + | Religion Affiliation | NRP | + + + | Race | White | + + + | Ethnic Group | Not or | + + + Author + + + | Author | [facility] | + + + | Organization | [facility] | + + + | Address | Unknown | + + + | Phone | Unavailable | + + + Support + + + + + | Name | Relationship | Address | Phone | + + + + + | Anderson Rose | ECON | [address] | | | [place] | | [place] [address] | | + + + + + | Gracie Turcios | ECON | [place] | | + + + + + Care Team Providers + +------+ + | Care Fountain Worker Name | Role | Phone | + +------+ + | Anisha Rivera | PCP | | + +------+ + Encounter Details +--------+ + + + + | Date | Type | Department | Care Team | Description | +--------+ + + + + | 03/04/ | Outside | Center | Kapil Rutherford, | | | 2018 | Referral | at [facility] [address] | CNM [address] | | | | Order | [address] | [address] | | | | | Mailcode: PV450 | [facility], [place] | | | | | [facility] | [address] | | | | | [facility] [place] | [phone] | | | | | [address] | | | | | | [phone] | | | +--------+ + + + [...] as of this encounter Plan of Treatment + +---------+--------+ + + | Name | Type | Priori | Associated Diagnoses | Date/Time | | | | ty | | | + +---------+--------+ + + | TELEMEDICINE | Imaging | Routin | Encounter for | 03/05/2018 7:22 AM | | ULTRASOUND | | e | screening | PDT | | | | | for malformation | | | | | | using ultrasound | | + +---------+--------+ + + + +---------+--------+ + + | Name | Type | Priori | Associated Diagnoses | Order Schedule | | | | ty | | | + +---------+--------+ + + | TELEMEDICINE | Imaging | Routin | Encounter for | Expected: | | ULTRASOUND | | e | screening | 03/04/2018, Expires: | | | | | for malformation | 04/03/2019 | | | | | using ultrasound | | + +---------+--------+ + + documented as of this encounter Visit Diagnoses + + | Diagnosis | + + | Encounter for screening for malformation using ultrasound - Primary | + + documented in this encounter"
--- OUTSIDE RECORDS SUMMARY | ~2019-05-12 | XMS | Encounter Summary ---
Demographics + + + | Address | [address] | | | [place] [address] | + + + | Home Phone | | + + + | Preferred Language | Unknown | + + + | Marital Status | Single | + + + | Faith Affiliation | NRP | + + + | Race | White | + + + | Ethnic Group | Not or | + + + Author + + + | Author | [facility] | + + + | Organization | [facility] | + + + | Address | Unknown | + + + | Phone | Unavailable | + + + Support + + + + + | Name | Relationship | Address | Phone | + + + + + | Anderson Rose | ECON | [address] | | | [place] | | [place] [address] | | + + + + + | Gracie Bullock | ECON | [place] | | + + + + + Care Team Providers + +------+ + | Care Blue Leather Sorter Name | Role | Phone | + +------+ + | Anisha Rivera | PCP | | + +------+ + Reason for Visit Maternity Services (Routine) +--------+--------+ + + + + | Status | Reason | Specialty | Diagnoses / | Referred By | Referred To | | | | | Procedures | Contact | Contact | +--------+--------+ + + + + | Closed | | | Diagnoses | | Pnc Us | | | | | Supervision | Pentopoulos, | Telemedicine | | | | | of high | Analchuyita MD | [address] | | | | | risk | [address] | | | | | | [address] [place] | [place], | | | | | | [address] | [place] | | | | | | [place], [place] | [address] | | | | | | [address] | Phone: | | | | | | Phone: | [phone] | | | | | | [phone] | Fax: | | | | | | Fax: | [phone] | | | | | | [phone] | | +--------+--------+ + + + + Encounter Details +--------+ + + + + | Date | Type | Department | Care Team | Description | +--------+ + + + + | 03/05/ | Ancillary | Perinatology | | | | 2018 | Procedure | Telemedicine [address] | | | | | | [place], [place] | | | | | | [address] | | | | | | [phone] | | | +--------+ + + + [...] | + +--------+ + + + | TELEMEDICINE | Routin | 03/05/2018 | Encounter for | Results for this | | ULTRASOUND | e | 7:22 AM | routine screening | procedure are in the | | | | PDT | for malformation | results section. | | | | | using ultrasonics | | + +--------+ + + + documented in this encounter Results TELEMEDICINE ULTRASOUND (03/05/2018 7:22 AM PDT) + + | Specimen | + + | | + + + + + | Narrative | Performed At | + + + | [facility] | [facility] | | OBSTETRICAL ULTRASOUND REPORT | RADIOLOGY OB US | | | | | Pat. Name: ELIZABET BULLOCK Pat. No: [id number] | | | Study Date: 03/05/2018 8:03am , Age: 13 1995, 22 | | | Pregnancies: 2, Para 0010 LMP: Unknown GA by | | | US: 20w3d GA Selected: 20w1d (From Known E) ADELINE: | | | 07/22/2018 Referring MD: FIORELLA RENO Corporate Planning Manager: Cassi | | | [facility]: [id number] | | | | | | MEASUREMENTS & AGE GROWTH EVALUATION | | | Measurement GA Range Srce %for GA Ratios | | | ----- ---- ------- BPD 4.9 | | | cm 20w6d (19d0j-33x9m) Hadl BPD 70% FL/BPD 0.67 HC 18.1 cm 20w3d | | | (05n2q-29b0b) Hadl HC 60% FL/AC 0.20 AC 16.2 cm 21w2d | | | (73w6m-26p7p) Hadl AC 74% HC/AC 1.12 (1.06 - 1.24) FL 3.3 cm | | | 20w2d (19w4q-75s5j) Hadl FL 55% CI 0.79 (0.70 - 0.86) HL | | | 3.3 cm 21w0d (42r0a-96z6i) Sinan ONEILL 65% GA for sonogram 20w3d | | | (57n3a-81t3e) Weight Estimate: based on (BPD,HC,AC,FL) | | | Hadlock Weight: 379 gm (324-435gm) Hadloc | | | : 0lbs, 13oz Markers for | | | Chromosomal Abnormality: NF 3.0 mm | | | | | | EVAL, PLACENTA Presentation: Cephalic Placenta: | | | Fundal Previa: no previa seen Cord Insert: Normal | | | Anatomy!Normal!Abnormal!Suboptimal!Prev. Seen!Comments | | | | | | Cranium ! x ! ! ! | | | ! CSP ! x ! ! ! | | | ! Falx Cerebri ! x ! ! ! | | | ! Cerebral Vent! x ! ! ! | | | ! Choroid Plexu! x ! ! ! | | | ! Cerebellum ! x ! ! ! | | | ! Cisterna Magn! x ! ! ! | | | ! Nuchal Fold ! x ! ! ! | | | ! Neck ! x ! ! ! | | | ! Nose/Lips ! x ! ! | | | ! ! Face/Profile ! ! x ! | | | ! !Chin appears | | | small, possible | | | | | | retrognathia Nasal Bone ! x ! ! ! | | | ! Palate/Mandib! x ! ! ! | | | ! Orbits ! x ! ! | | | ! ! Chest/Lungs/R! x ! ! | | | ! ! Cardiac [place]/! x ! ! | | | ! ! Four Chamber ! ! ! x | | | ! ! LVOT ! ! ! x | | | ! ! RVOT ! ! ! | | | x ! ! 3 Vessel View! x ! ! | | | ! ! 3V Trachael V! ! ! | | | x ! ! IVC/SVC ! x ! ! | | | ! ! Aortic Arch ! x ! ! | | | ! ! Ductal Arch ! x ! | | | ! ! ! Diaphragm ! x ! | | | ! ! ! Stomach ! x ! | | | ! ! ! Situs ! x ! | | | ! ! ! Gallbladder ! x | | | ! ! ! ! Liver/Spleen ! x | | | ! ! ! ! Bowel ! | | | x ! ! ! ! 3VC | | | ! x ! ! ! ! Abdominal | | | Wal! x ! ! ! ! Kidneys | | | ! x ! ! ! ! Bladder | | | ! x ! ! ! ! | | | Cervical Spin! x ! ! ! ! | | | Thoracic Spin! x ! ! ! ! | | | Lumbar Spine ! x ! ! ! ! | | | Sacral Spine ! x ! ! ! ! | | | Right Humerus! x ! ! ! ! | | | Right Radius/! x ! ! ! ! | | | Right Hand ! x ! ! ! ! | | | Left Humerus ! x ! ! ! ! | | | Left Radius/U! x ! ! ! ! | | | Left Hand ! x ! ! ! | | | ! Right Femur ! x ! ! ! | | | ! Right Tibia/F! x ! ! ! | | | ! Right Foot ! x ! ! ! | | | ! Left Femur ! x ! ! ! | | | ! Left Tibia/Fi! x ! ! ! | | | ! Left Foot ! x ! ! ! | | | ! Skin ! x ! ! ! | | | ! Sex (M) ! x ! ! ! | | | ! | | | | | | CLINICAL SUMMARY Type of Gestation: Espinoza Uterus and adnexae: | | | No abnormalities seen. There is heart motion and gross | | | movement. Ultrasound cannot detect all / abnormalities. | | | Impression: 22 year old at 20 1/7 weeks gestation with a | | | history of obesity and SAB who presents for anatomy scan. 1. Single | | | living intrauterine in cephalic presentation. 2. | | | Anterior/Fundal/Left Lateral placenta without placenta previa. 3. | | | Growth is appropriate, consistent with 20 weeks 1 day gestation. 4. | | | The chin appears small in multiple views. This may be | | | secondary to incorrect scanning plane or may be due to | | | retrognathia/micrognathia. The remainder of the anatomic survey is | | | limited but unremarkable. Recommendations: 1. Recommend follow up | | | US in 2 weeks at [facility] for anatomy completion and assessment of the | | | profile. Thank you very much for allowing us to help care for | | | your patient. If you have any questions, please feel free to call | | | our 24 hour phone consult number at any time and ask for the | | | perinatologist denier control operator. [phone] or [phone] MARIO, | | | MD NATALIA <Electronic Signature> | | | 03/05/2018 12:53pm I have personally reviewed the images and, | | | if necessary, edited the report. I agree with the report as now | | | presented. | | + + + + + | Procedure Note | + + | Service Account, Radiant Res In Interface - 03/05/2018 12:53 PM PDT | | [facility] OBSTETRICAL ULTRASOUND | | REPORT Pat. Name: | | ELIZABET BULLOCKLibby. No: [id number] Date: 03/05/2018 8:03amDOB, | | Age: 13 1995, 22Pregnancies: 2, Para 0010LMP: UnknownGA by US: | | [id number] Selected: 20w1d (From Known E)ADELINE: 07/22/2018Referring MD: SHADIA, | | MANDELYNNSonographer: Dany Ye4: | | [id number] | | & AGE GROWTH EVALUATIONMeasurement GA Range Srce %for | | GA Ratios ----- ---- ------- BPD 4.9 | | cm 20w6d (42v4r-40z3b) Hadl BPD 70% FL/BPD 0.67HC 18.1 cm 20w3d (23l4p-61n9k) Hadl HC | | 60% FL/AC 0.20AC 16.2 cm 21w2d (51c2g-35b9l) Hadl AC 74% HC/AC 1.12 (1.06 - 1.24)FL | | 3.3 cm 20w2d (26m9i-54w4n) Hadl FL 55% CI 0.79 (0.70 - 0.86)HL 3.3 cm 21w0d | | (06f9m-58p7u) Sinan HL 65%GA for sonogram 20w3d (12h7s-99v3y) Weight | | Estimate:based on (BPD,HC,AC,FL) Hadlock Weight: 379 gm (324-435gm) [facility] | | : 0lbs, 13ozMarkers for Chromosomal Abnormality:NF | | 3.0 | | mm | | EVAL, PLACENTAPresentation: CephalicPlacenta: FundalPrevia: no previa seenCord Insert: | | NormalFetal Anatomy!Normal!Abnormal!Suboptimal!Prev. | | Seen!Comments Crani | | um ! x ! ! ! !CSP ! x ! ! ! | | !Falx Cerebri ! x ! ! ! !Cerebral Vent! x ! | | ! ! !Choroid Plexu! x ! ! ! | | !Cerebellum ! x ! ! ! !Cisterna Magn! x ! ! | | ! !Nuchal Fold ! x ! ! ! !Neck ! x | | ! ! ! !Nose/Lips ! x ! ! ! | | !Face/Profile ! ! x ! ! !Chin appears | | small, possible | | retrognathiaNasal Bone ! x ! ! ! !Palate/Mandib! | | x ! ! ! !Orbits ! x ! ! ! | | !Chest/Lungs/R! x ! ! ! !Cardiac [place]/! x ! ! | | ! !Four Chamber ! ! ! x ! !LVOT ! | | ! ! x ! !RVOT ! ! ! x ! !3 | | Vessel View! x ! ! ! !3V Trachael V! ! ! x | | ! !IVC/SVC ! x ! ! ! !Aortic Arch ! x ! | | ! ! !Ductal Arch ! x ! ! ! | | !Diaphragm ! x ! ! ! !Stomach ! x ! ! | | ! !Situs ! x ! ! ! !Gallbladder ! x | | ! ! ! !Liver/Spleen ! x ! ! ! | | !Bowel ! x ! ! ! !3VC ! x ! ! | | ! !Abdominal Wal! x ! ! ! !Kidneys ! x | | ! ! ! !Bladder ! x ! ! ! | | !Cervical Spin! x ! ! ! !Thoracic Spin! x ! ! | | ! !Lumbar Spine ! x ! ! ! !Sacral Spine ! x | | ! ! ! !Right Humerus! x ! ! ! | | !Right Radius/! x ! ! ! !Right Hand ! x ! ! | | ! !Left Humerus ! x ! ! ! !Left Radius/U! x | | ! ! ! !Left Hand ! x ! ! ! | | !Right Femur ! x ! ! ! !Right Tibia/F! x ! ! | | ! !Right Foot ! x ! ! ! !Left Femur ! x | | ! ! ! !Left Tibia/Fi! x ! ! ! | | !Left Foot ! x ! ! ! !Skin ! x ! ! | | ! !Sex (M) ! x ! ! ! | | ! CLINICAL | | SUMMARYType of Gestation: SingletonUterus and adnexae: No abnormalities seen.There is | | heart motion and gross movement.Ultrasound cannot detect all / | | abnormalities.Impression: 22 year old at 20 1/7 weeks gestation with a history | | of obesity and SAB who presents for anatomy scan.1. Single living intrauterine | | in cephalic presentation.2. Anterior/Fundal/Left Lateral placenta without placenta | | previa. 3. Growth is appropriate, consistent with 20 weeks 1 day gestation.4. The | | chin appears small in multiple views. This may be secondary to incorrect scanning plane | | or may be due to retrognathia/micrognathia. The remainder of the anatomic survey is | | limited but unremarkable. Recommendations:1. Recommend follow up US in 2 weeks at [facility] | | for anatomy completion and assessment of the profile. Thank you very much for | | allowing us to help care for your patient. If you have any questions, please feel free | | to call our 24 hour phone consult number at any time and ask for the perinatologist on | | call. [phone] or [phone] MARTIN MD <Electronic | | Signature> 03/05/2018 12:53pmI have personally reviewed the images and, if necessary, | | edited the report. I agree with the report as now presented. | |Abdominal Wal! x ! ! ! ! | |Kidneys ! x ! ! ! ! | |Bladder ! x ! ! ! ! | |Cervical Spin! x ! ! ! ! | |Thoracic Spin! x ! ! ! ! | |Lumbar Spine ! x ! ! ! ! | |Sacral Spine ! x ! ! ! ! | |Right Humerus! x ! ! ! ! | |Right Radius/! x ! ! ! ! | |Right Hand ! x ! ! ! ! | |Left Humerus ! x ! ! ! ! | |Left Radius/U! x ! ! ! ! | |Left Hand ! x ! ! ! ! | |Right Femur ! x ! ! ! ! | |Right Tibia/F! x ! ! ! ! | |Right Foot ! x ! ! ! ! | |Left Femur ! x ! ! ! ! | |Left Tibia/Fi! x ! ! ! ! | |Left Foot ! x ! ! ! ! | |Skin ! x ! ! ! ! | |Sex (M) ! x ! ! ! ! | | | |CLINICAL SUMMARY | |Type of Gestation: Espinoza | |Uterus and adnexae: No abnormalities seen. | |There is heart motion and gross movement. | |Ultrasound cannot detect all / abnormalities. | |Impression: 22 year old at 20 1/7 weeks gestation with a | |history of obesity and SAB who presents for anatomy scan. | |1. Single living intrauterine in cephalic presentation. | |2. Anterior/Fundal/Left Lateral placenta without placenta previa. | |3. Growth is appropriate, consistent with 20 weeks 1 day | |gestation. | |4. The chin appears small in multiple views. This may be | |secondary to incorrect scanning plane or may be due to | |retrognathia/micrognathia. The remainder of the anatomic survey is | |limited but unremarkable. | |Recommendations: | |1. Recommend follow up US in 2 weeks at [facility] for anatomy | |completion and assessment of the profile. | |Thank you very much for allowing us to help care for your patient. | |If you have any questions, please feel free to call our 24 hour | |phone consult number at any time and ask for the perinatologist on | |call. [phone] or [phone] | |NATALIA MARTIN MD | | | |<Electronic Signature> 03/05/2018 12:53pm | | | | | |I have [...] Encounter for screening for malformation using ultrasound | + + | Encounter for routine screening for malformation using ultrasonics | + + documented in this encounter"
--- OUTSIDE RECORDS SUMMARY | ~2019-05-12 | XMS | Encounter Summary ---
Demographics + + + | Address | [address] | | | [place] [address] | + + + | Home Phone | | + + + | Preferred Language | Unknown | + + + | Marital Status | Single | + + + | Adventism Affiliation | NRP | + + + [...] | | [place] | | [place] [address] | | + + + + + | Gracie Turcios | ECON | [place] | | + + + + + Care Team Providers + +------+ + | Care Debt Recovery Officer Name | Role | Phone | + [...] | +--------+ + + + + | 06/08/ | | [place] | | monitoring | | 2018 | | [facility] [address] | | | | | | E [facility] | | | | | | [address] [place], [place] | | | | | | [address] | | | | | | [phone] | | | +--------+ + + + [...] + + + | Blood Pressure | 105/72 | 06/08/2018 9:24 AM | | | | | PST [...] Weight | 120.2 kg (265 lb) | 06/08/2018 9:24 AM | | | | | PST | | + + + + + | Height | - | - | | + + + + + | Body Mass Index | 48.46 | 03/16/2018 3:13 PM | | | | | PDT | | + + + + + documented in this encounter Progress Notes Jordan Gonsalves RN - 06/08/2018 8:00 AM PSTNST: 23 y.o. at 33w5d weeks gesta tion. Indications for monitoring: GDM on insulin, velamentous cord, polyhydramnios Elizabet is currently using 10 units of NPH at bedtime. She states she has felt a few rando m contractions. FHT: Baseline FHR 120, moderate variability, 15 x 15 accelerations, and no decelerations. TOCO: Multiple small contractions noted in 60 minutes. Pt is not feeling any contractions. Strip reviewed by Leonela Luke MD. Next appointment 06/11 for Growth/JUANI usd, OBR, NST. Increase NPH to 12 units at bedtime per Dr. Luke. Pt notified by phone and states un derstanding. documented in this encounter Plan of Treatment Not on filedocumented as of this encounter Procedures + +--------+ + + + | Procedure Name | Priori | Date/Time | Associated Diagnosis | Comments | | | ty | | | | + +--------+ + + + | NST | Routin | 06/08/2018 | Gestational | Results for this | [...] + documented in this encounter Results NST (06/08/2018) + + + + + [...]
--- OUTSIDE RECORDS SUMMARY | ~2019-05-12 | XMS | Encounter Summary ---
Demographics + + + | Address | [address] | | | [place] [address] | + + + | Home Phone [...] | | [place] | | [place] [address] | | + + + + + | Gracie Turcios | ECON | [place] | | + + + + + Care Team Providers + +------+ + | Care Education Intern Name | Role | Phone | + +------+ + | Anisha Rivera | PCP | | + +------+ + Encounter Details +--------+------+ + + + | Date | Type | Department | Care Team | Description | +--------+------+ + + + | 11/24/ | Lab | Laboratory at | | Unconfirmed | | 2018 | | [facility] | | | | | | Center [address] | | | | | [address] [place] | | | | | | [address] | | | +--------+------+ + + + [...] | HCG BETA QUANT, | Routin | 11/24/2017 | Unconfirmed | Results for this | | PLASMA | e | 10:57 AM | | procedure are in the | | | | PDT | | results section. | + +--------+ + + + documented in this encounter Results HCG BETA QUANT, PLASMA (11/24/2017 10:57 AM PDT) + + + + + + | Component | Value | Ref Range | Performed | Pathologist | | | | | At | Signature | + + + + + + | HCG BETA, | 10,316 (H) | <3 mIU/mL | [facility] | | | PLASMA | [...] HCG Reference Ranges Males and Non- | [place] | | Females: 0.0-2.9 mIU/mL Females: Gestation Age HCG | [facility] | | Concentration (mIU/mL) 0.2-1 Weeks [...] | | by the FDA or the buffing machine tender of the assay. | | + + + + + + + + | Performing | Address | City/State/Zipcode | Phone Number | | Organization | | | | + + + + + | [facility] | | [place] [address] | [phone] | | [facility] | [address] | | | + + + + + documented in this encounter Visit Diagnoses + + | Diagnosis | + + | Unconfirmed examination or test, unconfirmed | + + documented in this encounter"
--- OUTSIDE RECORDS SUMMARY | ~2019-05-12 | XMS | Encounter Summary ---
Demographics + + + | Address | [address] | | | [place] [address] | + + + | Home Phone | | + + + | Preferred Language | Unknown | + + + | Marital Status | Single | + + + | Presybeterian Affiliation | NRP | + + + [...] | | [place] | | [place] [address] | | + + + + + | Gracie Turcios | ECON | [place] | | + + + + + Care Team Providers + +------+ + | Care Area Representative Name | Role | Phone | + +------+ + | Anisha Rivera | PCP | | + +------+ + Reason for Visit + + + | Reason | Comments | + + + | Refill Request | | + + + Encounter Details +--------+--------+ + + + | Date | Type | Department | Care Team | Description | +--------+--------+ + + + | 04/08/ | Refill | [place] | Kapil Rutherford, | Refill Request | | 2018 | | [facility] [place] [address] | CNM [address] | | | | | [address] | [address] | | | | | [address] [place], [place] | [place] | | | | | [address] | [address] | | | | | [phone] | [phone] | | | | | | | | +--------+--------+ + + + Social History + +-------+ [...]
--- OUTSIDE RECORDS SUMMARY | ~2019-05-12 | XMS | Encounter Summary ---
Demographics + + + | Address | [address] | | | [place] [address] | + + + | Home Phone | | + + + | Preferred Language | Unknown | + + + | Marital Status | Single | + + + | Mu-Ism Affiliation | NRP | + + + [...] | | [place] | | [place] [address] | | + + + + + | Gracie Turcios | ECON | [place] | | + + + + + Care Team Providers + +------+ + | Care Distillery Manager Name | Role | Phone | + +------+ + | Anisha Rivera | PCP | | + +------+ + Encounter Details +--------+ + + + + | Date | Type | Department | Care Team | Description | +--------+ + + + + | 06/12/ | Alternative Education Teacher | [place] | Natasha Jones, | Supervision of [facility] | | 2018 | | [facility] [address] | MD [address] , | risk in | | | | [address] [place], [place] | third trimester | | | | [address] [place], [place] | [address] | (Primary Dx) | | | | [address] | [phone] | | | | | [phone] | | | +--------+ + + + [...] BLOOD BANK | and | [place] [address] | | | | Streets | | | + + + + + documented in this encounter Visit Diagnoses + + | Diagnosis | + + | Supervision of high risk in third trimester - Primary Unspecified high-risk | | | + + documented in this encounter"
--- OUTSIDE RECORDS SUMMARY | ~2019-05-12 | XMS | Encounter Summary ---
Demographics + + + | Address | [address] | | | [place] [address] | + + + | Home Phone [...] | | [place] | | [place] [address] | | + + + + + | Gracie Turcios | ECON | [place] | | + + + + + Care Team Providers + +------+ + | Care Bone Crusher Name | Role | Phone | + +------+ + | Anisha Rivera | PCP | | + +------+ + Reason for Visit + + + | Reason | Comments | + + + | test | | + + + Encounter Details +--------+---------+ + + + | Date | Type | Department | Care Team | Description | +--------+---------+ + + + | 12/19/ | Office | [facility] | Anisha Rivera, | Menstrual period | | 2017 | Visit | Medicine [address] | GOVERNMENT EMPLOYEE [address] | late (Primary Dx); | | | | [address] [place], | [place], [place] | control | | | | [place] [address] | [address] | counseling | | | | [phone] | [phone] | | | | | | | [...] + + + | Blood Pressure | 118/64 | 12/19/2016 11:46 AM | | | | | PDT | | + + + + + | Pulse | 108 | 12/19/2016 11:46 AM | | | | | PDT | | + + + + + | Temperature | - | - | | + + + + + | Respiratory Rate | - | - | | + + + + + | Oxygen Saturation | 98% | 12/19/2016 11:46 AM | | | | | PDT | | + + + + + | Inhaled Oxygen | - | - | | | Concentration | | | | + + + + + | Weight | 108.4 kg (239 lb) | 12/19/2016 11:46 AM | | | | | PDT | | + + + + + | Height | - | - | | + + + + + | Body Mass Index | 42.34 | 10/08/2016 2:46 PM | | | | | PDT | | + + + + + documented in this encounter Patient Instructions Patient Instructions Anisha Rivera, GOVERNMENT EMPLOYEE - 12/19/2016 12:30 PM PDT Combination Control Pills: Care Instructions Your Care Instructions Combination control pills are used to prevent . They give you a regular dose of the hormones estrogen and progestin. You take a hormone pill every day to prevent . control pills come in packs. The most common type has 3 weeks of hormone pills. Some packs have sugar pills (they do not contain any hormones) for the fourth week. During that no-hormone week, you have your period. After the fourth week (28 days), you start a ne w pack. Some control pills are packaged in different ways. For example, some have hormone pil ls for the fourth week instead of sugar pills. Taking hormones for the entire month causes y ou to not have periods or to have fewer periods. Others are packaged so that you have a arline od every 3 months. Your doctor will tell you what type of pills you have. Follow-up care is a emerson part of your treatment and safety. Be sure to make and go to all ap pointments, and call your doctor if you are having problems. It's also a good idea to know y our test results and keep a list of the medicines you take. How can you care for yourself at home? How do you take the pill? Follow your doctor's instructions about when to start taking your pills. Use backup sammi h control, such as a condom, or don't have intercourse for 7 days after you start your pills . Take your pills every day, at about the same time of day. To help yourself do this, try to take them when you do something else every day, such as brushing your teeth. What if you forget to take a pill? Always read the label for specific instructions, or call your doctor. Here are some basic g uidelines: If you miss 1 hormone pill, take it as soon as you remember. Ask your doctor if you may need to use a backup control method, such as a condom, or not have intercourse. If you miss 2 or more hormone pills, take one as soon as you remember you forgot them. T hen read the pill label or call your doctor about instructions on how to take your missed pi lls. Use a backup method of control or don't have intercourse for 7 days. is more likely if you miss more than 1 pill. If you had intercourse, you can use emergency contraception, such as the morning-after p ill (Plan B). You can use emergency contraception for up to 5 days after having had intercou rse, but it works best if you take it right away. What else do you need to know? The pill has side effects. You may have very light or skipped periods. You may have bleeding between periods (spotting). This usually decreases after 3 to 4 mo nths. You may have mood changes, less interest in sex, or weight gain. The pill may reduce acne, heavy bleeding and cramping, and symptoms of premenstrual synd nasim. Check with your doctor before you use any other medicines, including avup-jqp-tbbaucc me dicines, vitamins, herbal products, and supplements. control hormones may not work as well to prevent when combined with other medicines. The pill doesn't protect against sexually transmitted infection (STIs), such as herpes o r HIV/AIDS. If you're not sure whether your sex partner might have an STI, use a condom to p rotect against disease. When should you call for help? Call your doctor now or seek immediate medical care if: You have severe belly pain. You have signs of a blood clot, such as: Pain in your calf, back of the knee, thigh, or groin. Redness and swelling in your leg or groin. You have blurred vision or other problems seeing. You have a severe headache. You have severe trouble breathing. Watch closely for changes in your health, and be sure to contact your doctor if: You think you might be . You think you may be depressed. You think you may have been exposed to or have a sexually transmitted infection. Where can you learn more? To learn more about "Combination Control Pills: Care Instructions", log into your [employer] account at [email or web address]. You can enter Z218 in the "[employer] Library" [employer] box. Not on [employer]? Review the [employer] section of your After Visit Summary for directions on ho w to sign up. Current as of: November 13, 2015 Content Version: 11.2 6910-7091 [employer]. Care instructions adapted under license by [facility] [employer] [place]. If you have questions about a medical condition or this instr uction, always ask your healthcare professional. [employer] disclaims any frederic anty or liability for your use of this information. documented in this encounter Progress Notes Anisha Rivera FNP - 12/19/2016 12:00 PM PDT Family Medicine Acute Visit Date of Service: 12/19/16, 11:51 AM Providers Involved in Care of Patient: Eric as of 12/19/2016 PCP: ARTHUR Waters Encounter Provider: ARTHUR Waters Chief Complaint: Pt here for a test pt LMP was in 11/12/2016. Pt has done 5 diff erent test at home and all came back negative. HPI: Ms. Turcios is presents today with late menstrual period concerns. Her last period started on 11/07, her cycles are usually 30-31 days long. Is doing nothing to prevent . Has taken 5 tests at home which were all negative. Has never skipped menstrual periods in the past. ROS: Review of Systems Constitutional: Negative for [...] daily. , Disp: 3 Package, Rfl: 4 Bbwdskfz-Zn-Ndv-Fe-FA ( VITAMIN) oral tablet, Take 1 tablet by mouth once daily., Disp: 90 tablet, Rfl: 3 triamcinolone acetonide 0.1 % topical ointment, , Disp: , Rfl: 0 Physical Exam: BP 118/64 | Pulse 108 | Wt 108.4 kg (239 lb) | SpO2 98% | LMP 11/12/2016 | BMI 42.34 kg/(m^ 2) Physical Exam Constitutional: She is oriented to person, place, and time and well-developed, well-nourish ed, and in no distress. HENT: Head: Normocephalic. Eyes: Conjunctivae are normal. Neck: Normal range of motion. Pulmonary/Chest: Effort normal. Neurological: She is alert and oriented to person, place, and time. Psychiatric: Mood and affect normal. Assessment and Plan: (N92.6) Menstrual period late (primary encounter diagnosis) Plan: HCG (URINE ONLY) (Z30.09) control counseling Plan: norethindrone-ethinyl estradiol 1-20 mg-mcg oral tablet Patient presents today for concerns regarding a late period. She normally has 30 day cycles in around 7 days late. Home tests and HCG here in office negative for . Patient interested in starting control. Elected to start OCPs, reviewed LARCs as well. Counseled on use, efficacy, what to do with missed doses and common SE. Recommending starti ng today, counseled that periods may be abnormal for 1-2 months, but then should normalize o ut. Also discussed folic acid supplementation, prenatals provided today. Anisha GIBSON, DNP Instructor [facility] Family Medicine [facility] Family Medicine P: [phone] F: [phone] Email: [email or web address] documented in this encounter Plan of Treatment Not on filedocumented as of this encounter Results HCG (URINE ONLY) (12/19/2016 12:08 PM PDT) + + + + + + | Component | Value | Ref Range | Performed | Pathologist | | | | | At | Signature | + + + + + + | HCG QUAL | Negative | mIU/mL | [facility] | | | URINE | Comment: | | [facility] | | | | | | FAMILY | | | | HCG=<25mIU/mL. | | MEDICINE | | + + + + + + + + | Specimen | + + | Urine | + + + + + + + | Performing | Address | City/State/Zipcode | Phone Number | | Organization | | | | + + + + + | [facility] | [address] [place] [address] | [place] [address] | | | FAMILY MEDICINE | | | | + + + + + documented in this encounter Visit Diagnoses + + | Diagnosis | + + | Menstrual period late - Primary Other disorder of menstruation and other abnormal | | bleeding from female genital tract | + + | control counseling General counseling for initiation of other contraceptive | | measures | + + documented in this encounter
--- OUTSIDE RECORDS SUMMARY | ~2019-05-12 | XMS | Encounter Summary ---
Demographics + + + | Address | [address] | | | [place] [address] | + + + | Home Phone [...] | | [place] | | [place] [address] | | + + + + + | Gracie Turcios | ECON | [place] | | + + + + + Care Team Providers + +------+ + | Care Distribution Analyst Name | Role | Phone | + [...] + + + | 06/04/ | | [place] | | monitoring | | 2018 | | [facility] [address] | | | | | | E [facility] | | | | | | [address] [place], [place] | | | | | | [address] | | | | | | [phone] | | | +--------+ + + + [...] been her go to breakfast this w cantwell. Advised to cut it in half, find whole wheat version to try, stop if this does not brin g bg into normal range under 140. All other bg WNL. 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 Has been able [...]
--- OUTSIDE RECORDS SUMMARY | ~2019-05-12 | XMS | Encounter Summary ---
Demographics + + + | Address | [address] | | | [place] [address] | + + + | Home Phone | | + + + | Preferred Language | Unknown | + + + | Marital Status | Single | + + + | Worship Affiliation | NRP | + + + | Race | White | + + + | Ethnic Group | Not or | + + + Author + + + | Author | [facility] | + + + | Organization | [facility] | + + + | Address | Unknown | + + + | Phone | Unavailable | + + + Support + + + + + | Name | Relationship | Address | Phone | + + + + + | Anderson Rose | ECON | [address] | | | [place] | | [place] [address] | | + + + + + | Gracie Turcios | ECON | [place] | | + + + + + Care Team Providers + +------+ + | Care State Pilot Name | Role | Phone | [...] + + + | 06/01/ | | [place] | | monitoring | | 2018 | | [facility] [address] | | | | | | E [facility] | | | | | | [address] [place], [place] | | | | | | [address] | | | | | | [phone] | | | +--------+ + + + [...] Wellington Jones MD. Next appointment 06/03 for JUANI, 06/04 for NST. Glucose results reviewed by [...]
--- OUTSIDE RECORDS SUMMARY | ~2019-05-12 | XMS | Encounter Summary ---
Demographics + + + | Address | [address] | | | [place] [address] | + + + | Home Phone [...] | | [place] | | [place] [address] | | + + + + + | Gracie Bullock | ECON | [place] | | + + + + + Care Team Providers + +------+ + | Care Senior Programmer Name | Role | Phone | + [...] sinusitis | | | | [address] [place], | [place] [address] | (Primary Dx); URI | | | | [place] [address] | [phone] | with cough and | | | | [phone] | | congestion | +--------+---------+ + + [...] | + + + | [address] [place] [address] | [facility] | | [place] [address] | DEPARTMENT | | [phone] Name: FRANK BULLOCK Phys: | RADIOLOGY | | KEATONMAME : 1995 Sex: F CSN: | | | [id number] MR# [id number] Exam Date: 09/28/2018 | | | EXAM: [...] Transcribed Date/Time: | | | 09/28/2018 15:22 Supervisor Fruit Grading: FLUENCY | | + + + + + | Procedure Note | + + | Interface, Radiology Results - 09/28/2018 3:27 PM PDT [address] | | [address] [place] [address] | | Name: FRANK BULLOCK Phys: MAME TAYLOR : 1995 Sex: F | | CSN: [id number] MR# [id number] Exam Date: 09/28/2018 EXAM:TWO VIEW CHEST XRAY [...] | | |Transcribed Date/Time: 09/28/2018 15:22 | |Supervisor Fruit Grading: FLUENCY | | | | | | [...]
--- OUTSIDE RECORDS SUMMARY | ~2019-05-12 | XMS | Encounter Summary ---
Demographics + + + | Address | [address] | | | [place] [address] | + + + | Home Phone | | + + + | Preferred Language | Unknown | + + + | Marital Status | Single | + + + | Zoroastrian Affiliation | NRP | + + + | Race | White | + + + | Ethnic Group | Not or | + + + Author + + + | Author | [facility] | + + + | Organization | [facility] | + + + | Address | Unknown | + + + | Phone | Unavailable | + + + Support + + + + + | Name | Relationship | Address | Phone | + + + + + | Anderson Rose | ECON | [address] | | | [place] | | [place] [address] | | + + + + + | Gracie Turcios | ECON | [place] | | + + + + + Care Team Providers + +------+ + | Care Pharmacy Order Entry Technician Name | Role | Phone | + +------+ + | Anisha Rivera | PCP | | + +------+ + Reason for Visit + + + | Reason | Comments | + + + | | sugar review | + + + Encounter Details +--------+ + + + + | Date | Type | Department | Care Team | Description | +--------+ + + + + | 04/23/ | | [place] | Pentopoulos, | (sugar | | 2018 | | [facility] [address] | MD [place] [address] | review) | | | | E | | | | | | [address] [place], [place] | [place], [place] | | | | | [address] | [address] | | | | | [phone] | [phone] | | | | | | | [...] + + + | Blood Pressure | 112/74 | 04/23/2018 7:19 AM | | | | | PST [...] + + + + | Weight | 115.7 kg (255 lb) | 04/23/2018 7:19 AM | | | | | PST | | + + + + + | Height | - | - | | + + + + + | Body Mass Index | 46.63 | 03/16/2018 3:13 PM | | | | | PDT | | + + + + + documented in this encounter Progress Notes Leonela Luke MD - 04/23/2018 7:30 AM PSTS: Elizabet is a at 27w1d who pr esents today to follow up with her blood sugars. She denies any contractions. She has good movement. Fastings have improved on metformin. O: General: NAD Abdomen: Soft, gravid. Psych: Appropriate mood and affect A: Elizabet is a at 27w1d who presents today to follow up with her blood sugars. P: F/u in 1 weeks for a routine OB visit and review blood sugars. documented in t his encounter Plan of Treatment Not on filedocumented as of this encounter Visit Diagnoses + + | Diagnosis | + + | Gestational diabetes mellitus (GDM) in second trimester controlled on oral | | hypoglycemic drug - Primary | + + documented in this encounter"
--- OUTSIDE RECORDS SUMMARY | ~2019-05-12 | XMS | Encounter Summary ---
Demographics + + + | Address | [address] | | | [place] [address] | + + + | Home Phone [...] | | [place] | | [place] [address] | | + + + + + | Gracie Turcios | ECON | [place] | | + + + + + Care Team Providers + +------+ + | Care Photographic Specialist Name | Role | Phone | + +------+ + | Anisha Rivera | PCP | | + +------+ + Reason for Visit + + + | Reason | Comments | + + + | Glucose Measurement, | | | Blood | | + + + Encounter Details +--------+ + + + + | Date | Type | Department | Care Team | Description | +--------+ + + + + | 03/12/ | | [place] | | Glucose Measurement, | | 2018 | | [facility] [place] [address] | | Blood | | | | E | | | | | | [address] [place], [place] | | | | | | [address] | | | | | | [phone] | | | +--------+ + + + [...] documented as of this encounter Progress Notes Jaz Erazo, KATHY - 03/12/2018 3:00 PM Fozia Mata CNM recommended patient retur n in one week for glucose review after trying to capture all fasting and one hour postprandi al readings. Patient previously had some trouble checking her glucose. Fasting 3 abnormals - 107, 98, 115 - after discussion Elizabet reports they are up late and have midnight snacks which usually consists of a bagel. Reviewed changing to whole wheat p roducts, decreasing the size of bagel to 1/2 or mini and eating with protein and fat such as yogurt or lean meats. No abnormal postprandial readings, reports one reading of 126 was ta piedad a little over an hour after eating d/t traveling. Congratulated Elizabet on her progress in consistently checking her blood sugars. Reviewed results with Dr. Lopez who recommends not eating so late as the fasting bg are not truly fa sting. Encouraged to keep checking her blood sugar as she did this week. Plan to call clin ic if she has 2 or more fasting bg over 95 this next few weeks or a trend of postprandials o alicia 140. Plan to keep her appointment at [facility] 03/16/18 at 2:00 pm and see MP with her mete r on 04/02. Elizabet is comfortable with plan and thanks me for visit. She will call with other questions or concerns as needed.Electronically signed by Jaz Lux RN at 4:15 PM PDTdocumented in this encounter Plan of Treatment Not on filedocumented as of this encounter Visit Diagnoses + + | Diagnosis | + + | Diet controlled gestational diabetes mellitus (GDM) in second trimester - Primary | + + | High-risk in second trimester | + + documented in this encounter"
--- OUTSIDE RECORDS SUMMARY | ~2019-05-12 | XMS | Encounter Summary ---
Demographics + + + | Address | [address] | | | [place] [address] | + + + | Home Phone | | + + + | Preferred Language | Unknown | + + + | Marital Status | Single | + + + | Jain Affiliation | NRP | + + + | Race | White | + + + | Ethnic Group | Not or | + + + Author + + + | Author | [facility] | + + + | Organization | [facility] | + + + | Address | Unknown | + + + | Phone | Unavailable | + + + Support + + + + + | Name | Relationship | Address | Phone | + + + + + | Anderson Rose | ECON | [address] | | | [place] | | [place] [address] | | + + + + + | Gracie Bullock | ECON | [place] | | + + + + + Care Team Providers + +------+ + | Care Industrial Illuminating Engineer Name | Role | Phone | + +------+ + | Anisha Rivera | PCP | | + +------+ + Encounter Details +--------+ + + + + | Date | Type | Department | Care Team | Description | +--------+ + + + + | 03/16/ | Hospital | Center | [facility], | | | 2018 | Encounter | at [facility] [address] | [facility] [address] | | | | | [address] | [address] | | | | | Mailcode: PV450 | [facility] [place] | | | | | Physician's [place] | [address] | | | | | [facility] [place] | [phone] | | | | | [address] | | | | | | [phone] | | | +--------+ + + + [...] | + +--------+ + + + | US UTERUS | Routin | 03/16/2018 | Abnormal | Results for this | | FOLLOW-UP SCAN | e | 2:51 PM | ultrasound | procedure are in the | | | | PDT | | results section. | + +--------+ + + + documented in this encounter Results US UTERUS FOLLOW-UP SCAN (03/16/2018 2:51 PM PDT) + + | Specimen | + + | | + + + + + | Narrative | Performed At | + + + | [facility] | [facility] | | OBSTETRICAL ULTRASOUND REPORT | RADIOLOGY OB US | | | | | Pat. Name: ELIZABET BULLOCK Pat. No: [id number] | | | Study Date: 03/16/2018 1:45pm , Age: 13 1995, 22 | | | Pregnancies: 2, Para 0010 LMP: Unknown GA by | | | Last: 21w5d GA Selected: 21w5d (From Last St) ADELINE: | | | 07/22/2018 Referring MD: FIORELLA ERNO Film Historian: DESTINI | | | [facility] CPT4: 40557 Hist/Ind: | | | Incomplete anatomy scan, possible micronathia | | | | | | Heart Rate: 147 bpm | | | | | | EVAL, PLACENTA Presentation: Cephalic Placenta: | | | Anterior Cord Insert: Velamentous insertion Heart Rate: 147 | | | bpm Amniotic Fluid Volume: Normal | | | | | | MATERNAL ANATOMY | | | | | | Ovaries LxHxW (cm) Left 3.4 x 1.3 x 2.8 Vol: 6.7cc | | | | | | Anatomy!Normal!Abnormal!Suboptimal!Prev. Seen!Comments | | | | | | Cranium ! ! ! ! x | | | ! CSP ! ! ! ! | | | x ! Falx Cerebri ! ! ! ! | | | x ! Cerebral Vent! ! ! ! | | | x ! Choroid Plexu! ! ! ! | | | x ! Cerebellum ! ! ! ! | | | x ! Cisterna Magn! ! ! ! | | | x ! Nuchal Fold ! ! ! ! | | | x ! Neck ! ! ! ! | | | x ! Nose/Lips ! ! ! | | | ! x ! Face/Profile ! x ! ! | | | ! ! Nasal Bone ! x ! ! | | | ! x ! Palate/Mandib! ! ! | | | ! x ! Orbits ! ! ! | | | ! x ! Chest/Lungs/R! ! ! | | | ! x ! Cardiac Turlock/! ! ! | | | ! x ! Four Chamber ! x ! ! | | | ! ! RVOT ! x ! ! | | | ! ! 3 Vessel View! x ! ! | | | ! x ! 3V Trachael V! x ! ! | | | ! ! IVC/SVC ! ! ! | | | ! x ! Aortic Arch ! ! ! | | | ! x ! Ductal Arch ! ! ! | | | ! x ! Diaphragm ! ! | | | ! ! x ! Stomach ! x ! | | | ! ! x ! Situs ! ! | | | ! ! x ! Gallbladder ! ! | | | ! ! x ! Liver/Spleen ! ! | | | ! ! x ! Bowel ! | | | ! ! ! x ! 3VC ! | | | ! ! ! x ! Abdominal Wal! | | | ! ! ! x ! Kidneys | | | ! x ! ! ! x ! Bladder | | | ! x ! ! ! x ! Cervical | | | Spin! ! ! ! x ! Thoracic | | | Spin! ! ! ! x ! Lumbar | | | Spine ! ! ! ! x ! Sacral | | | Spine ! ! ! ! x ! Right | | | Humerus! ! ! ! x ! Right | | | Radius/! ! ! ! x ! Right | | | Hand ! ! ! ! x ! Left | | | Humerus ! ! ! ! x ! Left | | | Radius/U! ! ! ! x ! Left | | | Hand ! ! ! ! x ! | | | Right Femur ! ! ! ! x ! | | | Right Tibia/F! ! ! ! x ! | | | Right Foot ! ! ! ! x ! | | | Left Femur ! ! ! ! x | | | ! Left Tibia/Fi! ! ! ! x | | | ! Left Foot ! ! ! ! x | | | ! Skin ! ! ! ! | | | x ! Sex (M) ! x ! ! ! | | | x ! | | | | | | CLINICAL SUMMARY Type of Gestation: Espinoza Uterus and adnexae: | | | No abnormalities seen. There is heart motion and gross | | | movement. Ultrasound cannot detect all / abnormalities. | | | Impression: 22 year old at 21 5/7 weeks gestation with a | | | history of incomplete anatomy scan with questionable | | | micrognathia who presents for completion of anatomy and | | | reassessment of chin. 1. Single living intrauterine | | | in cephalic presentation. 2. Anterior placenta without placenta | | | previa. There is a velamentous cord insertion in the upper right | | | uterus > 5 cm from the placental edge. 4. Targeted anatomic | | | survey with no abnormalities identified, now complete. Specifically, | | | normal profile and mandible noted on today's exam (by 2D and 3D | | | evaluation). Results discussed with the patient and she was seen in | | | Clinic after the ultrasound exam. Recommendations: | | | follow up per clinical plan. Thank you very much for allowing us to | | | help care for your patient. If you have any questions, please feel | | | free to call our 24 hour phone consult number at any time and ask | | | for the perinatologist global expansion sales director. [phone] or [phone] | | | MILTON DE LA CRUZ MD <Electronic Signature> | | | 03/16/2018 04:00pm I have personally reviewed the images and, | | | if necessary, edited the report. I agree with the report as now | | | presented. | | + + + + + | Procedure Note | + + | Service Account, Radiant Res In Interface - 03/16/2018 4:00 PM PDT | | [facility] OBSTETRICAL ULTRASOUND | | REPORT Pat. Name: | | ELIZABET BULLOCK. No: [id number] Date: 03/16/2018 1:45pmDOB, | | Age: 13 1995, 22Pregnancies: 2, Para 0010LMP: UnknownGA by | | Last: 02r3dOJ Selected: w5d (From )ADELINE: 07/22/2018Referring MD: | | Sissy RENOographer: [facility] RVTCPT4: [id number]/Ind: | | Incomplete anatomy scan, possible | | micronathia | | Heart Rate: 147 | | bpm | | EVAL, PLACENTAPresentation: CephalicPlacenta: AnteriorCord Insert: Loboamentous | | insertionFetal Heart Rate: 147 bpmAmniotic Fluid Volume: | | Normal MATERNAL | | ANATOMY Ovaries | | LxHxW (cm)Left 3.4 x 1.3 x 2.8 Vol: 6.7cc | | | | Anatomy!Normal!Abnormal!Suboptimal!Prev. | | Seen!Comments Crani | | um ! ! ! ! x !CSP ! ! ! ! | | x !Falx Cerebri ! ! ! ! x !Cerebral Vent! ! | | ! ! x !Choroid Plexu! ! ! ! x | | !Cerebellum ! ! ! ! x !Cisterna Magn! ! ! | | ! x !Nuchal Fold ! ! ! ! x !Neck ! | | ! ! ! x !Nose/Lips ! ! ! ! x | | !Face/Profile ! x ! ! ! !Nasal Bone ! x ! ! | | ! x !Palate/Mandib! ! ! ! x !Orbits ! | | ! ! ! x !Chest/Lungs/R! ! ! ! x | | !Cardiac Turlock/! ! ! ! x !Four Chamber ! x ! ! | | ! !RVOT ! x ! ! ! !3 Vessel View! x | | ! ! ! x !3V Trachael V! x ! ! ! | | !IVC/SVC ! ! ! ! x !Aortic Arch ! ! ! | | ! x !Ductal Arch ! ! ! ! x !Diaphragm ! | | ! ! ! x !Stomach ! x ! ! ! x | | !Situs ! ! ! ! x !Gallbladder ! ! ! | | ! x !Liver/Spleen ! ! ! ! x !Bowel ! | | ! ! ! x !3VC ! ! ! ! x | | !Abdominal Wal! ! ! ! x !Kidneys ! x ! ! | | ! x !Bladder ! x ! ! ! x !Cervical Spin! | | ! ! ! x !Thoracic Spin! ! ! ! x | | !Lumbar Spine ! ! ! ! x !Sacral Spine ! ! ! | | ! x !Right Humerus! ! ! ! x !Right Radius/! | | ! ! ! x !Right Hand ! ! ! ! x | | !Left Humerus ! ! ! ! x !Left Radius/U! ! ! | | ! x !Left Hand ! ! ! ! x !Right Femur ! | | ! ! ! x !Right Tibia/F! ! ! ! x | | !Right Foot ! ! ! ! x !Left Femur ! ! ! | | ! x !Left Tibia/Fi! ! ! ! x !Left Foot ! | | ! ! ! x !Skin ! ! ! ! x !Sex | | (M) ! x ! ! ! x | | ! CLINICAL | | SUMMARYType of Gestation: SingletonUterus and adnexae: No abnormalities seen.There is | | heart motion and gross movement.Ultrasound cannot detect all / | | abnormalities.Impression: 22 year old at 21 5/7 weeks gestation with a history | | of incomplete anatomy scan with questionable micrognathia who presents for | | completion of anatomy and reassessment of chin.1. Single living intrauterine | | in cephalic presentation.2. Anterior placenta without placenta previa. There | | is a velamentous cord insertion in the upper right uterus > 5 cm from the placental | | edge. 4. Targeted anatomic survey with no abnormalities identified, now complete. | | Specifically, normal profile and mandible noted on today's exam (by 2D and 3D | | evaluation). Results discussed with the patient and she was seen in Clinic | | after the ultrasound exam. Recommendations:follow up per clinical plan. Thank you very | | much for allowing us to help care for your patient. If you have any questions, please | | feel free to call our 24 hour phone consult number at any time and ask for the | | perinatologist global expansion sales director. [phone] or [phone], ROYA, | | <Electronic Signature> 03/16/2018 04:00pmI have personally reviewed | | the images and, if necessary, edited the report. I agree with the report as now | | presented. | |Lumbar Spine ! ! ! ! x ! | |Sacral Spine ! ! ! ! x ! | |Right Humerus! ! ! ! x ! | |Right Radius/! ! ! ! x ! | |Right Hand ! ! ! ! x ! | |Left Humerus ! ! ! ! x ! | |Left Radius/U! ! ! ! x ! | |Left Hand ! ! ! ! x ! | |Right Femur ! ! ! ! x ! | |Right Tibia/F! ! ! ! x ! | |Right Foot ! ! ! ! x ! | |Left Femur ! ! ! ! x ! | |Left Tibia/Fi! ! ! ! x ! | |Left Foot ! ! ! ! x ! | |Skin ! ! ! ! x ! | |Sex (M) ! x ! ! ! x ! | | | |CLINICAL SUMMARY | |Type of Gestation: Espinoza | |Uterus and adnexae: No abnormalities seen. | |There is heart motion and gross movement. | |Ultrasound cannot detect all / abnormalities. | |Impression: 22 year old at 21 5/7 weeks gestation with a | |history of incomplete anatomy scan with questionable | |micrognathia who presents for completion of anatomy and | |reassessment of chin. | |1. Single living intrauterine in cephalic presentation. | |2. Anterior placenta without placenta previa. There is a | |velamentous cord insertion in the upper right uterus > 5 cm from the | |placental edge. | |4. Targeted anatomic survey with no abnormalities | |identified, now complete. Specifically, normal profile and mandible | |noted on today's exam (by 2D and 3D evaluation). | |Results discussed with the patient and she was seen in | |Clinic after the ultrasound exam. | |Recommendations: | |follow up per clinical plan. | |Thank you very much for allowing us to help care for your patient. | |If you have any questions, please feel free to call our 24 hour | |phone consult number at any time and ask for the perinatologist on | |call. [phone] or [phone] | |MILTON DE LA CRUZ MD | | | |<Electronic Signature> 03/16/2018 04:00pm | | | | | |I have [...] Diagnosis | + + | Abnormal ultrasound Abnormal findings on screening | + + documented in this encounter"
--- OUTSIDE RECORDS SUMMARY | ~2019-05-12 | XMS | Encounter Summary ---
Demographics + + + | Address | [address] | | | [place] [address] | + + + | Home Phone | | + + + | Preferred Language | Unknown | + + + | Marital Status | Single | + + + | Mandaen Affiliation | NRP | + + + [...] | | [place] | | [place] [address] | | + + + + + | Gracie Turcios | ECON | [place] | | + + + + + Care Team Providers + +------+ + | Care Regulatory Administrator Name | Role | Phone | + +------+ + | Anisha Rivera | PCP | | + +------+ + Reason for Visit + + + | Reason | Comments | + + + | Obstetric US Scan | NT | + + + Encounter Details +--------+ + + + + | Date | Type | Department | Care Team | Description | +--------+ + + + + | 01/07/ | | [place] | | Obstetric US Scan | | 2018 | | [facility] | | (NT) | | | | [facility] | | | | | | [address], [place] | | | | | | [address] | | | | | | [phone] | | | +--------+ + + + [...] documented as of this encounter Progress Notes Elizabeth Ascencio RN - 01/07/2018 8:00 AM PDTNuchal translucency ultrasound completed today , to be read by ALEKSANDER. d ocumented in this encounter Plan of Treatment Not on filedocumented as of this encounter Procedures + +--------+ + + + | Procedure Name | Priori | Date/Time | Associated Diagnosis | Comments | | | ty | | | | + +--------+ + + + | CLINIC OB NUCHAL | Routin | 01/07/2018 | High-risk | Results for this | | TRANSLUCENCY FOR | e | 8:13 AM | in first | procedure are in the | | [facility] - EXTERNAL | | PDT | trimester | results section. | | READ | | | | | + +--------+ + + + documented in this encounter Results SEQUENTIAL SCREEN: 2ND TRIMESTER, SERUM (02/04/2018 8:03 AM PDT) + + + + + + | Component | Value | Ref Range | Performed | Pathologist | | | | | At | Signature | + + + + + + | RESULT | See scanned report | | [facility] | | | | | | A MEDICAL | | | | | | CENTER | | + + + + + + + + | Specimen | + + | Blood - Blood | | (substance) | + + + + + | Narrative | Performed At | + + + | | [facility] | | Test performed by: | [facility] | | [facility] | | | [address] | | | [place] [address] | | + + + + + + + + | Performing | Address | City/State/Zipcode | Phone Number | | Organization | | | | + + + + + | [place] | [address] | [place] [address] | [phone] | | [facility] | Streets | | | + + + + + SEQUENTIAL SCREEN: 1ST TRIMESTER, SERUM (01/07/2018 3:52 PM PDT) + +--------+ + + + | Component | Value | Ref Range | Performed | Pathologist | | | | | At | Signature | + +--------+ + + + | [facility] | SIS #1 | | [facility] | | | | | | REFERENCE | | | | | | LAB | | + +--------+ + + + + + | Specimen | + + | Blood - Blood | | (substance) | + + + + + | Narrative | Performed At | + + + | | [facility] | | Test performed by: | REFERENCE LAB | | [facility] | | | [address] | | | [place] [address] | | + + + + + + + + | Performing | Address | City/State/Zipcode | Phone Number | | Organization | | | | + + + + + | [facility] | | | | + + + + + | [facility] | see below | | | + + + + + US CLINIC OB NUCHAL TRANSLUCENCY FOR [facility] - EXTERNAL READ (01/07/2018 8:13 AM PDT) + + | Specimen | + + | | + + + + + | Narrative | Performed At | + + + | Ultrasound exam performed at [facility] and will | [facility] | | be read/resulted at [facility]. | DEPARTMENT OF | | | RADIOLOGY [...] first trimester - Primary | + + documented in this encounter"
--- OUTSIDE RECORDS SUMMARY | ~2019-05-12 | XMS | Encounter Summary ---
Demographics + + + | Address | [address] | | | [place] [address] | + + + | Home Phone | | + + + | Preferred Language | Unknown | + + + | Marital Status | Single | + + + | Oriental Orthodox Affiliation | NRP | + + [...] | | [place] | | [place] [address] | | + + + + + | Gracie Turcios | ECON | АНДРЕЙCHARITYEL | | + + + + + Care Team Providers + +------+ + | Care Wharf Attendant Name | Role | Phone | + +------+ + | Anisha Rivera | PCP | | + +------+ + Reason for Visit + + + | Reason | Comments | + + + | care | Rhogam | + + + Encounter Details +--------+ + + + + | Date | Type | Department | Care Team | Description | +--------+ + + + + | 06/12/ | | [place] | | care | | 2018 | | [facility] [address] | | (Rhogam) | | | | [facility] | | | | | | [address], [place] | | | | | | [address] | | | | | | [phone] | | | +--------+ + + + [...] + documented as of this encounter Progress Marlee Mendez RN - 06/12/2018 2:45 PM PSTDanielle here for Rhogam, has not had blood dra gautam. Advised to go to [facility] lab for CBC and antibody screen. Returned after lab draw. Rhoga m Immune Globulin given without difficulty. Next visit, 06/15/18 at 7:45 am for NST. Jorge talavera states she is feeling well today and she does not have any concerns at this time. documented in this enc ounter Plan of Treatment Not on filedocumented as of this encounter Visit Diagnoses + + | Diagnosis | + + | Rh negative status during in third trimester - Primary | + + | High-risk in third trimester | + + documented in this encounter Administered Medications + +--------+ +-------+------+---------+ | Medication Order | MAR | Action | Dose | Rate | Site | | | Action | Date | | | | + +--------+ +-------+------+---------+ | Rho D Immune Globulin | Given | 06/12/20 | 300 | | Right | | Intramuscular | | 18 15:34 | Units | | Deltoid | | | | PST | | | | + +--------+ +-------+------+---------+ +---+---+ | | | +---+---+ documented in this encounter"
--- OUTSIDE RECORDS SUMMARY | ~2019-05-12 | XMS | Encounter Summary ---
Demographics + + + | Address | [address] | | | [place] [address] | + + + | Home Phone | | + + + | Preferred Language | Unknown | + + + | Marital Status | Single | + + + | Yazidi Affiliation | NRP | + + + [...] | | [place] | | [place] [address] | | + + + + + | Gracie Turcios | ECON | АНДРЕЙCHARITYEL | | + + + + + Care Team Providers + +------+ + | Care Snuff Container Inspector Name | Role | Phone | + [...] | Visit | Medicine [address] | CATHODE BUILDER [address] | late (Primary Dx); | | | | [address] [place], | [place], [place] | control | | | | [place] [address] | [address] | counseling | | | | [phone] | [phone] | | | | | | | [...] encounter Patient Instructions Patient Instructions Anisha Rivera, CATHODE BUILDER - 12/19/2016 12:30 PM PDT Combination Control [...] before you use any other medicines, including pafw-njp-oakluhw me dicines, vitamins, herbal products, and supplements. [...] Control Pills: Care Instructions", log into your [employer] account at [email or web address]. You can enter [id number] in the "[employer] Library" [employer] box. Not on Familio? Review the Familio section of your After Visit Summary for directions on ho w to sign up. Current as of: November 13, 2015 Content Version: 11.2 7020-4407 [employer]. Care instructions adapted under license by [facility] [employer] [place]. If you have questions about a medical condition or this instr uction, always ask your healthcare professional. [employer] disclaims any frederic anty or liability for [...] daily. , Disp: 3 Package, Rfl: 4 Ceevusgb-Cx-Yjn-Fe-FA ( VITAMIN) oral tablet, Take 1 tablet [...] prenatals provided today. Anisha GIBSON, DNP Instructor [facility] P: [phone] F: [phone] Email: [email or web address] documented in this encounter Plan of Treatment [...] | + + + + + | [facility] | [address] [place] [address] | [place] [address] | | | FAMILY MEDICINE | | [...]
--- OUTSIDE RECORDS SUMMARY | ~2019-05-12 | XMS | Encounter Summary ---
Demographics + + + | Address | [address] | | | [place] [address] | + + + | Home Phone | | + + + | Preferred Language | Unknown | + + + | Marital Status | Single | + + + | Mandaeism Affiliation | NRP | + + + | Race | White | + + + | Ethnic Group | Not or | + + + Author + + + | Author | [facility] | + + + | Organization | [facility] | + + + | Address | Unknown | + + + | Phone | Unavailable | + + + Support + + + + + | Name | Relationship | Address | Phone | + + + + + | Anderson Rose | ECON | [address] | | | [place] | | [place] [address] | | + + + + + | Gracie Turcios | ECON | [place] | | + + + + + Care Team Providers + +------+ + | Care Hat Copyist Name | Role | Phone | + [...] | +--------+ + + + + | 05/14/ | | [facility] | Natasha Jones, | | | 2018 | | [facility] [address] | MD [address] | | | | | [address] [place], [place] | | | | | [address] [place], [place] | [address] | | | | | [address] | [phone] | | | | | [phone] | | | +--------+ + + + [...] + + + | Blood Pressure | 118/74 | 05/14/2018 8:25 AM | | | | | PST [...] + + + + | Weight | 118.8 kg (262 lb) | 05/14/2018 8:25 AM | | | | | PST | | + + + + + | Height | - | - | | + + + + + | Body Mass Index | 47.91 | 03/16/2018 3:13 PM | | | | | PDT | | + + + + + documented in this encounter Patient Instructions Patient Instructions Valorie Berrios MA - 05/14/2018 8:30 AM PSTPrenatal Visit - Week 30 Please read chapters 8 and 30 in your book. You may be getting tired of all these messages about nutrition. However, it really is that important now and for the rest of your life. Your health and the health of your child dominic depend on the nutritional choices you make NOW. Your ktdy-xm-mn-born baby will learn hi s/her first nutritional lessons from you. Remember, it s mostly about QUALITY. Eat whole foods, nutritious foods, unprocessed food s. Avoid food that has added sugar, fat, and salt. Avoid food from fast food restaur ants. Cook and prepare food at home. Stop drinking soft drinks. Have a small, healthy snack in between your meals. Have some protein and avoid too many ca rbohydrates (sugar and starch). There is still plenty of time in your to change your nutritional habits ..and b oth you and your baby will benefit from it. Are you having difficulty making healthy choice s?.....call us ..we ll get you together with our nozzle cement sprayer helper. your baby We want you to breastfeed your baby. Your civil cad tech wants you to breastfeed your baby. Every health authority on Earth wants you to breastfeed your baby. Breastfed babies are he althier. Period. Breastfed babies have fewer allergies. Breastfed babies have fewer illnesses. Breastfed b abies are less likely to have weight problems later in life. Breast is best. Even if you can only breastfeed your baby for a few days or weeks, the milk that your baby receives from your body will make him/her healthier. We want to help you and your baby get off to a good start. It s not always easy to get t o the point where you offer the breast and your baby effortlessly latches to the nipple in fact, for some women, it can be quite difficult. is an art that both you and your baby will need some time and effort to perfect. But we can help you. After the of your baby, our nurses will help get you started wi th the real thing .and, although you have breasts and your baby has an instinct to suck , it takes a little learning and experience to get the two of you latched together. But, we ll be there to help. : How you feed your is a personal choice. The experts agree that breas tfeeding is best. The [place] [employer] recommends exclusive , sta rting as soon as possible after delivery, for 6 months and continuing for at least one year. The longer and more exclusively a mother breastfeeds her baby, the greater the health benefi ts they both receive. As you consider how you will feed your baby, talk to your provider, your baby s provider, your partner, family members and friends who have breastfed their babies. You also might fi nd it helpful to talk to a teacher selection specialist. They can tell you more about things such as latching your baby, positioning, milk supply and pumping and storing your breast milk. The specialists in [facility] are: Dorinda Beckham RN, IBCLC - [facility] Concepcion Werner RN, IBCLC - [facility] Department In [facility]: Keyla Hauser RN, IBCLC [phone] In [facility]: Jazlyn Coffey NP [phone] Yanely Rao, RN [phone] Further Sources for Support and Information: [facility] [place] [place])- [phone] [email or web address] [facility] [place]- [phone] [email or web address] We encourage our patients to either register for the class or schedule a cons ult with one of the specialists. Breast Pumps Many, if not most, new mothers will benefit from having a good breast pump. A breast pump can: -help establish a good milk supply -provide your milk to a who might not be able to suck -help a mother whose nipples are flat or inverted -provide a means of obtaining and storing breast milk once your supply is well established. Many health insurance companies will now pay for you to have an electric breast pump (they know they ll save money in the long run since mothers and babies who breastfeed are health ier!). Call your insurance company and find out if you need a prescription from us to obtain your pump. We ll be more than happy to help. Planning your NEXT It may seem too early to talk about it but it s not. You need to start two conversa tions about control / family planning / contraception. One conversation with us, and another conversation with your mate. Spacing your babies too closely is not good for your health or theirs. And an unplanned pr egnancy can put a kink in anyone s life. We want you to be able to plan your next . Reliable control methods are femi dily available, easy to use, and can do a near-perfect job helping you to decide when you newman ve another . We re experts in contraception. Let s talk about it at your future visits. Let s newman ve a solid plan in place before you even have this baby. Forget the rumors; forget what you ve heard; bring an open mind to the possibilities. We can help find a family planning me thod that is best for you. Take charge of your fertility! You can plan when your occurs. It s still too early for that baby Here s another reminder about Labor call us, if you think you might be in labor. It is still way too early for your baby to be born. If you re in labor, we need time to get ready for your baby. The sooner you call us, the more time we have to prepare. So, if you have any of the following signs or symptoms, we want you to call and talk to us: ? Painful contractions of the uterus ? More than 4 contractions per hour ? A watery discharge from your vagina ? A bloody discharge from your vagina ? Constant pain on your uterus ? Uterine pain and signs/symptoms of infection (fever, chills, muscle aches, upper back elina n, or pain/burning when you urinate). Weeks 30 to 32 of Your : Care Instructions Your Care Instructions You have made it to the final months of your . By now, your baby is really startin g to look like a baby, with hair and plump skin. As you enter the final weeks of , the reality of having a baby may start to set in . This is the time to settle on a name, get your household in order, set up a safe nursery, and find quality child support case officer if needed. Doing these things in advance will allow you to focus on caring for and enjoying your new baby. You may also want to have a tour of your hospital 's labor and delivery unit to get a better idea of what to expect while you are in the hospi jasmine. During these last months, it is very important to take good care of yourself and pay attent ion to what your body needs. If your doctor says it is okay for you to work, don't push your self too hard. Use the tips provided in this care sheet to ease heartburn and care for varic ose veins. If you haven't already had the Tdap [...] can you care for yourself at home? Pay attention to your baby's movements You should feel your baby move several times every day. Your baby now turns less, and kicks and jabs more. Your baby sleeps 20 to 45 minutes at a time and is more active at certain times of day. If your doctor wants you to count your baby's kicks: Empty your bladder, and lie on your side or relax in a comfortable chair. Write down your start time. Pay attention only to your baby's movements. Count any movement except hiccups. After you have counted 10 movements, write down your stop time. Write down how many minutes it took for your baby to move 10 times. If an hour goes by and you have not recorded 10 movements, have something to eat or drin k and then count for another hour. If you do not record 10 movements in either hour, call yo doctor. Ease heartburn Eat small, frequent meals. Do not eat chocolate, peppermint, or very spicy foods. Avoid drinks with caffeine, such as coffee, tea, and sodas. Avoid bending over or lying down after meals. Talk a short walk after you eat. If heartburn is a problem at night, do not eat for 2 hours before bedtime. Take antacids like Mylanta, Maalox, Rolaids, or Tums. Do not take antacids that have sod ium bicarbonate. Care for varicose veins Varicose veins are blood vessels that stretch out with the extra blood during . Your legs may ache or throb. Most varicose veins will go away after the . Avoid standing for long periods of time. Sit with your legs crossed at the ankles, not t he knees. Sit with your feet propped up. Avoid tight clothing or stockings. Wear support hose. Exercise regularly. Try walking for at least 30 minutes a day. Where can you learn more? To learn more about "Weeks 30 to 32 of Your : Care Instructions", log into your My Chart account at [email or web address]. You can enter X471 in the "Health Library" [facility] box. Not on MyChart? Review the MyChart section of your After Visit Summary for directions on jean-claude vivian to sign up. Current as of: May 06, 2017 Content Version: 11.7 4645-1313 [employer]. Care instructions adapted under license by [facility]. If you have questions about a medical condition or this instr uction, always ask your healthcare professional. [employer] disclaims any frederic anty or liability for your use of this information. documented in this encounter Progress Notes Natasha Jones MD - 05/14/2018 8:30 AM PSTReturn OB Visit S: Doing well. No complaints today. Had US with tech today, growth normal but JUANI high. Denies any bleeding, leaking, contractions. Baby very active. Fasting CBGs persistently elevated in last 2 weeks on metformin. She takes it with dinner. O: VS: BP 118/74 | Wt 118.8 kg (262 lb) | LMP 10/15/2017 | BMI 47.91 kg/(m^2) Gen: Well-appearing, in no distress Abd: soft, NT, gravid Ext: No LE edema or calf tenderness A/P: 22 y.o. at 30w1d here for visit. c/b A2GDM, BMI 44, velamen tous cord insertion, polyhydramnios. - PNC: UTD, flu shot today - GDM: fastings 88-105 (04/28 abnl). Postprandial 80-178 (11/10 abnl). Recommend increasing PM metformin to 1000 mg. RN to call in 1 week for CBG review. If still elevated plan to sta rt insulin at night. Reviewed importance of checking CBGs QID. Scheduled testing in 2 weeks. Repeat JUANI in 2 weeks. - Velamentous cord insertion: normal growth US today, repeat growth in 4 weeks, start weekl y AFIs in 2 weeks - RTC in 2 weeks Natasha Jones MD Valorie Anthony MA - 05/14/2018 8:30 AM PSTPt had growth U/S with tech prior to this appointment. The patient was screened for the following contraindications to influenza vaccine and respo nses were as follows: Febrile illness today? No Allergy to eggs? No Prior history of a reaction to flu vaccine? No Prior history of Guillain-Jasper syndrome? No (For patients receiving Fluarix): Allergy or sensitivity to Latex? Not applicable documented in this [facility] Plan of Treatment Not on filedocumented as of this encounter Visit Diagnoses + + | Diagnosis | + + | Needs flu shot - Primary Need for prophylactic vaccination and inoculation against | | influenza | + + | Gestational diabetes mellitus (GDM) in second trimester controlled on oral | | hypoglycemic drug | + + | High-risk in second trimester | + + documented in this encounter
--- OUTSIDE RECORDS SUMMARY | ~2019-05-12 | XMS | Encounter Summary ---
Demographics + + + | Address | [address] | | | [place] [address] | + + + | Home Phone | | + + + | Preferred Language | Unknown | + + + | Marital Status | Single | + + + | Quaker Affiliation | NRP | + + + | Race | White | + + + | Ethnic Group | Not or | + + + Author + + + | Author | [facility] | + + + | Organization | [facility] | + + + | Address | Unknown | + + + | Phone | Unavailable | + + + Support + + + + + | Name | Relationship | Address | Phone | + + + + + | Anderson Rose | ECON | [address] | | | [place] | | [place] [address] | | + + + + + | Gracie Turcios | ECON | [place] | | + + + + + Care Team Providers + +------+ + | Care Staff Trainer Name | Role | Phone | + +------+ + | Anisha Rivera | PCP | | + +------+ + Encounter Details +--------+ + + + + | Date | Type | Department | Care Team | Description | +--------+ + + + + | 12/01/ | Abstract | [facility] | Natasha Jones, | | | 2018 | | [facility] [address] | [address] | | | | | [address] [place], [place] | | | | | [address] [place], [place] | [address] | | | | | [address] | [phone] | | | | | [phone] | | | +--------+ + + + [...] in preparation f or OB Intake. Used [employer] to gather patient information for the chart, [...]
--- OUTSIDE RECORDS SUMMARY | ~2019-05-12 | XMS | Encounter Summary ---
Demographics + + + | Address | [address] | | | [place] [address] | + + + | Home Phone [...] | | [place] | | [place] [address] | | + + + + + | Gracie Turcios | ECON | [place] | | + + + + + Care Team Providers + +------+ + | Care Set Up Mold Technician Name | Role | Phone | + +------+ + | Anisha Rivera | PCP | | + +------+ + Encounter Details +--------+------+ + + + | Date | Type | Department | Care Team | Description | +--------+------+ + + + | 11/24/ | Lab | Laboratory at | | Unconfirmed | | 2018 | | [facility] | | | | | | Center [address] | | | | | | [address] [place] | | | | | | [address] | | | +--------+------+ + + + [...] HCG Reference Ranges Males and Non- | [facility] | | Females: 0.0-2.9 mIU/mL Females: Gestation Age HCG | [facility] | | Concentration (mIU/mL) 0.2-1 Weeks 5-50 [...] | | by the FDA or the joy operator of the assay. | | + + + + + + + + | Performing | Address | City/State/Zipcode | Phone Number | | Organization | | | | + + + + + | [facility] | | [place] [address] | [phone] | | [facility] | [address] | | | + + + + + documented in this encounter Visit Diagnoses + + | Diagnosis | + + | Unconfirmed examination or test, unconfirmed | + + documented in this encounter"
--- OUTSIDE RECORDS SUMMARY | ~2019-05-12 | XMS | Encounter Summary ---
Demographics + + + | Address | [address] | | | [place] [address] | + + + | Home Phone | | + + + | Preferred Language | Unknown | + + + | Marital Status | Single | + + + | Orthodoxy Affiliation | NRP | + + + [...] | | [place] | | [place] [address] | | + + + + + | Gracie Bullock | ECON | [place] | | + + + + + Care Team Providers + +------+ + | Care Vending Route Driver Name | Role | Phone | [...] | 2019 - | Encounter | at [facility] | [address] | | | | | [address] | [address] [place], [place] | | | 07/20/ | | [place], [place] | [address] | | | 2018 | | [address] | [phone] | | | | | [phone] | | | | | | | Barrera Lopez MD | | | | | | [address] | | | | | | [address] [place] | | | | | | [address] | | | | | | [phone] | | | | | | | [...] Information for the patient's : Angel Bullock [[id number]] Weight: 3.37 kg (7 lb 6.9 oz) [...] To contact your provider, please call the [facility] at [phone] during daytime hours. Follow Up 2-3 days in pp care clinic 2 weeks with Natasha Jones MD Future Appointments Provider Department Dept Phone Center 07/31/2018 11:00 AM Natasha Jones [facility] [place] [phone] [facility] Schedule the following appointment(s) when you get home Maternity Services at [facility]. Go on 07/22/2018. Specialty: Obstetrics & Gynecology Why: As scheduled, for Post Care Clinic with at 12:00pm Contact information [address] [facility] [phone] Natasha Jones MD Discharging Provider: Natasha Jones [...] muscles while you are recovering. Ask a [facility] member or friend for help with housework, [...] doctor if you can take an o aqa-xmc-mkytjcj medicine. If you think your pain medicine [...] to Expect at Home", log into your [employer] nt at [email or web address]. You can enter [id number] in the "Monogram Library" search box. Iron-Rich Diet: Care Instructions [...] "Iron-Rich Diet: Care Instructions", log into your [employer] account at h [email or web address]. You can enter [id number] in the "Monogram Library" search box. Not on [employer]? Review the Microstimhart section of your After Visit Summary for directions on jean-claude mckinnon to sign up. Current as of: September 10, 2017 Content Version: .[id number] Jellynote, [employer]. Care instructions adapted under license by [facility]. If you have questions about a medical condition or this instr uction, always ask your healthcare professional. [employer] disclaims any frederic anty or liability for [...] below umbilicus; Nontender Incision: Dressing C/D/I Assessment/Plan: Eilzabet Bullock is a 23 y.o. female s/p [...] turned off, patient repositioned & IVF infusing. NANOTECHNOLOGY ENGINEERING TECHNICIAN was called to assist with resuscitation. Patient [...] 10/15/2017 | BMI 50.48 kg/(m^2) Gen: NAD [place]: Ctx every 5-6min FHR: 125/moderate variability/ + [...] pre-eclampsia labs ordered. BARRERA LOPEZ MD Barrera Koroma MD - 06/2018 8:42 AM PSTIntrapartum Note Subjective Patient reporting increasing pain with contractions. Objective Temp: 36.8 C (98.3 F) (07/17/18 0400) Pulse: 92 (07/17/18 0400) Resp: 20 (07/17/18 0400) BP: 118/66 (07/17/18 0400) Contraction Quality: Mild (07/17/18 0730) [place]: Contractions every 2-3 minutes heart tones: Category [...] baseline 130, mod variability, +accels, - decels [place]: Q 4-6min Meds: NPH 12 units last [...] baseline 130, mod variability, +accels, - decels [place]: Q 5-6min Meds: NPH 12 units last [...] baseline 130, mod variability, +accels, - decels [place]: Q 5-6min Meds: NPH 12 units last [...] | 150 - 400 K/cu | [facility] | | | COUNT | | mm | A MEDICAL | | | | | | CENTER | | + + + + + + | MPV | 11.6 (H) | 7.5 - 11.2 fL | [facility] | | | | | | [...] apply to this test. | [facility] | | | MEDICAL CENTER | + + + + + + + + | Performing | Address | City/State/Zipcode | Phone Number | | Organization | | | | + + + + + | [facility] | And | [place] [address] | [phone] | | MEDICAL CENTER | Streets | [...] Name: Elizabet Bullock MRN: | | | [id number] : 1995 Procedure Date: 07/18/2018 Surgeon: | | | BARRERA LOPEZ MD Hospitality Specialist: Natasha Jones MD Preoperative | | | [...] sponge, instrument counts correct. | | | BARRERA LOPEZ MD | | + + + [...] | + + + + + | [facility] | And | [place] [address] | [phone] | | MEDICAL [facility] | Streets | | | + + + + + CREATININE, URINE (07/17/2018 8:00 PM PST) + +-------+ + + + | Component | Value | Ref Range | Performed | Pathologist | | | | | At | Signature | + +-------+ + + + | CREATININE | 245.4 | 20.0 - 320.0 | [facility] | | | CONC URINE | | [...] | + + + + + | [facility] | And | [place] [address] | [phone] | | MEDICAL CENTER | Streets | [...] + | [facility] | th And | [place] [address] | [phone] | | MEDICAL CENTER | Streets | [...] | | A MEDICAL | | | [facility] | | | CENTER | | + [...] equation recommended by the | [facility] | | National Kidney Disease Education Program. Estimated GFR | [facility] | | Interpretive Information: <60 mL/min/1.73 sq [...] | + + + + + | [facility] | And | [place] [address] | [phone] | | MEDICAL CENTER | Streets | | | + + + + + AST, PLASMA (07/17/2018 6:10 PM PST) + +-------+ + + + | Component | Value | Ref Range | Performed | Pathologist | | | | | At | Signature | + +-------+ + + + | AST(SGOT) | 14 | 10 - 41 U/L | [facility] | | | | | | [...] | + + + + + | [facility] | And | [place] [address] | [phone] | | [facility] | Streets | | | + + + + + UREA NITROGEN, PLASMA (07/17/2018 6:10 PM PST) + +-------+ + + + | Component | Value | Ref Range | Performed | Pathologist | | | | | At | Signature | + +-------+ + + + | BUN, PLASMA | 12 | 6 - 26 mg/dL | [facility] | | | (LAB) | | | [...] + + + + | [facility] | And | [place] [address] | [phone] | | MEDICAL CENTER | Streets | [...] + | [facility] | [address] | [place] [address] | [phone] | | [facility] | Streets | | | + [...] PROTEIN/CRE | 0.12 | <0.16 mg/mg | [facility] | | | ATININE | | | [...] | + + + + + | [facility] | And | [place] [address] | [phone] | | MEDICAL CENTER | Streets | [...] | [facility] | And | [place] [address] | [phone] | | MEDICAL CENTER | Streets | [...] BANK | and | [place] [address] | | | | Streets | | [...] | [facility] | And | [place] [address] | [phone] | | [facility] | Streets | | | + [...] BLOOD BANK | and | [place] [address] | | | | Streets | | [...] BANK | and | [place] [address] | | | | Streets | | [...] | | A MEDICAL | | | [facility] | | | CENTER | | + [...] equation recommended by the | [facility] | | National Kidney Disease Education Program. Estimated GFR | [facility] | | Interpretive Information: <60 mL/min/1.73 sq [...] + + + + | [facility] | | [place] [address] | [phone] | | [facility] | Streets | | | + [...] | +---+---+ + +-------+ + +---+---+ | Multivits,Ca,Gammhyrr-Jktc-BD | Given | 07/20/19 | 1 tablet [...]
--- OUTSIDE RECORDS SUMMARY | ~2019-05-12 | XMS | Encounter Summary ---
Demographics + + + | Address | [address] | | | [place] [address] | + + + | Home Phone [...] | | [place] | | [place] [address] | | + + + + + | Gracie Turcios | ECON | [place] | | + + + + + Care Team Providers + +------+ + | Care Lion Trainer Name | Role | Phone | + +------+ + | Anisha Rivera | PCP | | + +------+ + Reason for Visit + + + | Reason | Comments | + + + | Diabetes Education | | + + + Consultation (Routine) [...] | | | mellitus | , | [address] | | | | | (GDM) in | [address] | [place], | | | | | first | [place], [place] | [place] [address] | | | | | trimester, | [address] | Phone: | | | | | gestational | Phone: | [phone] | | | | | diabetes | [phone] | Fax: | | | | | method of | Fax: | [phone] | | | | | control | [phone] | | | | | | unspecified [...] + + + + | 05/14/ | Clinical | Diabetes Education | Lisa Dumont RD | Diabetes Education | | 2017 | Support | [facility] | [address] | | | | Staff | [address] | [place], [place] | | | | | [place], [place] | [address] | | | | | [address] | | | | | | [phone] | | | +--------+ + + + [...] of this encounter Patient Instructions Patient Instructions Lisa Dumont, RD - 05/14/2018 3:00 PM PSTDiabetes Education Instruc tions: Thank you for meeting with the director outcomes today. These are the healthy lifestyle goa ls that we set today to help control your blood sugars. Reminders: 1. Eat something for breakfast within 1 hour of waking up and every 2-4 hours while you're awake. If you are awake for more than 2 hours after dinner, have a bedtime snack (something with carbs + protein) 2. Aim for 30 grams of carbohydrate at breakfast, 30-45 grams at lunch and dinner, and 15 g shazia at snacks. Choose whole or minimally processed food. 3. Try to be physically active every day, especially after meals (if tolerated) 4. Continue to test blood sugar at fasting and 1 hour after meals. Target range when you wa ke up is 80-130 and after meals is less than 140. 5. Call this number: [phone]. To find out when the next schedule of [facility] sses are Please call if you have questions or if you would like to schedule a follow up visit. Lisa Dumont RD DIABETES EDUCATION AT [address] [place] [address] My Diabetes Self-Management Support Plan Let your educator know if you need help accessing the websites. Emotional Support ___National Hibernia on Mental Illness (DANTE) (Depression, bipolar and other support) [phone]; www.dante.org ___Depression & Bipolar Support Hibernia- [phone]-www.dbsalliance.org ___Anxiety &Depression Association of [place] (find local therapist by zip code at www.ada a.org) National phone number [phone] ___National Suicide Prevention Lifeline- [phone] Weight Management ___Mind & Body Medicine Weight Loss Support Group- of every month-2nd floor [facility]. [phone] ___Weight Watchers. [phone]. wwwappAttach ___Over eaters Anonymous [phone] (support group)- www.oa.org ___TOPS (Taking Off Pounds Sensibly) [place] [phone] ___[facility] [phone] (steps to wellness, offered in Greenlandic and Irish) www.Triumfanteating.org https://oa.org www.thediscoapierformindfuleating.org Exercise ___[facility] Fitness Center. [phone] ___[facility] Medical Exercise Program. [phone] ___Curves -[phone]- www.curves.Kumbuya ___Soul to Soul Fitness [place] [phone] ___[facility], [address] [place]. [phone] ___[facility] Walking Group- [phone] ___Exercise videos at library or Youtube exercise videos ___OPB TV- Sit and Be Fit; Gentle yoga/stretching ___ [employer] walking 4.5 laps around the inside perimeter = 1 mile ___Other Diabetes Support Group ___ Type 1 Diabetes support group -contact [email or web address] - A First of Its Kind Flip Flopail.com for meeting dates and location ___ Weight Loss Support Group [facility] 2nd Floor, of each month 12-1 pm, free- just show up ___Diabetes, gestational, and type 2 prevention websites www.diabetes.org (cameroonian diabetes association) www.niddk.nih.gov/health-information/diabetes#topics www.cdc.gov/diabetes www.diabetes.niddk.nih.gov www.ndep.nih.gov www.eatright.org www.dlife.Kumbuya www.calorie.com www.tracker.diabetes.org www.Boostableiaextractintheraw.Kumbuya www.mayoclinic.org pharmaceutical/glucose meter websites Www.nlm.nih.gov/medlineplus/druginformation.html - National Library of Medicine's Herbs & S upplements Stress & Pain Relief ___[facility] Yoga classes. [phone] ___Mind & Body Mindfulness and Breath Work. [phone] ___[facility] Persistant Pain Education Program. [phone] ___Mind & Body Acupuncture Therapy. [phone] ___[facility]. [phone] Gestational Diabetes X Mommy Wellness Program. (in [place] [phone] and [place] [phone]) -conside ring ___www.ncbi.nlm.nih.gov/pubmedhealth/QLZ2729436 ___www.LLLI.org ([place] le[place] league international, breast feeding support) Journals ___Diabetes Forecast- [phone]- www.diabetesforecast.org ___Diabetes Self-Management- [phone]- www.diabetesInspiron Logistics CorporationlRelateIQ.Kumbuya ___Diabetes Health-www.diabetesselfmanaClearStreamment.com Apps ___Calorie Chintan ___Glucose Zeeshan (Free, tracks blood glucose, graphs) ___SparkQuote (Free, inspiring quote for the day) ___My Vziw-x-Lyrrg X My Fitness Pal (free. Track food and exercise intake) ___Go Meals (restaurant nutrition guide) ___Lose It (track food intake and exercise) X MySugr documented in this encounter Progress Notes Lisa Dumont RD - 05/14/2018 3:00 PM PST [facility] Diabetes Education Progress Note Elizabet Turcios is a 22 y.o. female. Diagnosis: GDM Referring Provider: Natasha Jones Time: 60-minutes Visit Type: DSMT - Return Appointment Type: Individual Education Type: Comprehensive &/or Initial Notes Reason for Visit: Gestational diabetes mellitus (GDM) in first trimester . ADELINE- 07/22/17. [facility] baby, having a boy (Pete). 3 hr OGTT results (01/14/18): 3 hr- 167; 2 hr- 219; 3 hr- 162 [facility] Diabetes Education - A1C, BP & Weight 04/23/2018 04/30/2018 05/14/2018 A1C Results - - 5.7 Blood Pressure 112/74 116/76 118/74 Patient Weight 255 lbs 259 lbs 262 lbs Assessment: Patient returns for diabetes education with GDM at 30 weeks gestation. Patient has a patter n of elevated fasting blood sugars and reports her metformin was increased from 500 mg to 10 00 mg daily and she has not increased the dose yet. Discussed other strategies to help lower fasting blood sugar levels and reviewed blood sugar target levels again today in detail. Landon thompson has had some elevated post prandial blood sugars over the past week r/t drinking sugar y beverages and cake at [employer] and eating large portions of pasta. Discussed nutrition re commendations and encouraged close monitoring of carbohydrate intake for the remainder of he r . Discussed likely increased insulin resistance as the progresses and p ossible need for insulin. Patient reports she is not fond of needles but was receptive to ed ucation about insulin administration. Provided education on what to expect after a nd today. She is not sure if she plans to breast feed at this time. Patient in structed to call CDE if questions or concerns arise. BG LOG: Date Fasting Breakfast Lunch Dinner 05/10 99 81 106 05/11 105 163 103 05/12 101 178 137 118 05/13 90 108 159 05/14 105 133 116 9 Content Areas of DSME/S 01/29/2018 05/14/2018 Diabetes Disease & Treatment Process 2 - Needs Review 3 - Comprehends Education Nutrition Management 2 - Needs Review 3 - Comprehends Education Physical Activity NC - Not Covered 3 - Comprehends Education Medications NC - Not Covered 2 - Needs Review Monitoring 3 - Comprehends Education 3 - Comprehends Education Acute Complications NC - Not Covered 3 - Comprehends Education Chronic Complications 3 - Comprehends Education 3 - Comprehends Education Psychosocial Issues NC - Not Covered 3 - Comprehends Education Health Promotion & Behavior Change 3 - Comprehends Education 2 - Needs Review Individuals Assessed: patient Barriers: Motivation Education Intervention: Learner: patient Education Materials: Carb/Protein/Fat Food List Managing Gestational Diabetes Healthy Snack Idea Behavioral Goal/Target: Goal/Target chosen by patient/family: Healthy Eating and Monitoring Goal/Target specific: 1. Control my carbohydrate intake by aiming for 1-2 servings at break fast and 3-4 servings at lunch and dinner 2. Increase fruit and vegetables in diet by eating a serving of each each day Progress towards goal/target(s): Healthy Eating N/A - difficult to assess as patient has no t been tracking her intake Education Plan: Support Plan: Apps: My Fitness Pal, My Sugr, Mommy Wellness Class Education Plan: Call to schedule prn Routed to: referring provider Patient Instructions (AVS): 1. Eat something for breakfast within 1 hour of waking up and every 2-4 hours while you're awake. If you are awake for more than 2 hours after dinner, have a bedtime snack (something with carbs + protein) 2. Aim for 30 grams of carbohydrate at breakfast, 30-45 grams at lunch and dinner, and 15 g shazia at snacks. 3. Try to be physically active every day, especially after meals (if tolerated) 4. Continue to test blood sugar at fasting and 1 hour after meals. Target range when you wa ke up is 80-130 and after meals is less than 140. 5. Call this number: [phone] to find out when the next schedule of Agnes Roman ses are Lisa Dumont RD, LD, CDE Diabetes and Nutrition Services [facility] documented in this enc ounter Plan of Treatment Not on filedocumented as of this encounter Visit Diagnoses + + | Diagnosis | + + | Gestational diabetes mellitus (GDM) in second trimester controlled on oral | | hypoglycemic drug | + + documented in this encounter"
--- OUTSIDE RECORDS SUMMARY | ~2019-05-12 | XMS | Encounter Summary ---
Demographics + + + | Address | [address] | | | [place] [address] | + + + | Home Phone [...] Author + + + | Author | [facility] | + + + | Organization | [facility] | + + + | Address | Unknown | + + + | Phone | Unavailable | + + + Support + + + + + | Name | Relationship | Address | Phone | + + + + + | Anderson Rose | ECON | [address] | | | [place] | | [place] [address] | | + + + + + | Gracie Turcios | ECON | [place] | | + + + + + Care Team Providers + +------+ + | Care Machine Sneller Name | Role | Phone | + +------+ + | Anisha Rivera | PCP | | + +------+ + Encounter Details +--------+ + + + + | Date | Type | Department | Care Team | Description | +--------+ + + + + | 06/22/ | Hospital | Maternity Services | Natasha Jones, | | | 2018 | Encounter | at [facility] | MD [address], | | | | | [address] | [address] [place], [place] | | | | | [place], [place] | [address] | | | | | [address] | [phone] | | | | | [phone] | | | +--------+ + + + [...] + + + | Blood Pressure | 130/77 | 06/22/2018 9:42 AM | | | | | PST | | + + + + + | Pulse | 100 | 06/22/2018 9:55 AM | | | | | PST | | + + + + + | Temperature | 36.6 C (97.9 F) | 06/22/2018 9:42 AM | | | | | PST | | + + + + + | Respiratory Rate | 18 | 06/22/2018 9:42 AM | | | | | PST | | + + + + + | Oxygen Saturation | 98% | 06/22/2018 9:55 AM | | | | | PST [...] + documented in this encounter Progress Notes Natasha Jones MD - 06/22/2018 11:10 AM PSTOB Triage Note S: Patient presents for extended monitoring due to late deceleration seen on NST in clinic. O: BP 130/77 | Pulse 100 | Temp (Src) 36.6 C (97.9 F) (Oral) | RR 18 | SpO2 98% | LMP 05/0 07/2017 FHT - 135, mod luis, pos accels, no decels [place] - occ contractions A/P: 23 y.o. at 35w5d presenting for extended monitoring after late deceleration in clinic NST. complicated by A2GDM, BMI 44, velamentous cord insertion, polyhydram nios. Reactive extended monitoring x 80 min with no decels Not in labor D/c home RTC as scheduled. Natasha Jones MD documented in this en counter Plan of Treatment Not on filedocumented as of this encounter Visit Diagnoses Not on filedocumented in this encounter"
--- OUTSIDE RECORDS SUMMARY | ~2019-05-12 | XMS | Encounter Summary ---
Demographics + + + | Address | [address] | | | [place] [address] | + + + | Home Phone [...] Author + + + | Author | [facility] | + + + | Organization | [facility] | + + + | Address | Unknown | + + + | Phone | Unavailable | + + + Support + + + + + | Name | Relationship | Address | Phone | + + + + + | Anderson Rose | ECON | [address] | | | [place] | | [place] [address] | | + + + + + | Gracie Bullock | ECON | [place] | | + + + + + Care Team Providers + +------+ + | Care Wildlife Control Operator Name | Role | Phone | [...] | | | | Mailcode: [id number] | [facility] [place] | | | | | Physician's [place] | [address] | | | | | [facility] [place] | [phone] | | | | | [address] | | | | | | [phone] | | | +--------+ + + + [...] Performed At | + + + | [facility] | [facility] | | OBSTETRICAL ULTRASOUND REPORT | RADIOLOGY OB US | | | | | Pat. Name: ELIZABET BULLOCK Pat. No: [id number] | | | Study Date: 03/16/2018 1:45pm , Age: 13 1995, 22 | | | Pregnancies: 2, Para 0010 LMP: Unknown GA by | | | Last: 21w5d GA Selected: 21w5d (From Last St) ADELINE: | | | 07/22/2018 Referring MD: FIORELLA RENO Assistant Professor Of Anthropology: DESTINI | | | SARA LOPEZ [facility] CPT4: [id number] Hist/Ind: | | | Incomplete anatomy scan, [...] | | | ! x ! Cardiac [place]/! ! ! | | | ! x [...] ask | | | for the perinatologist product support consultant. [phone] or [phone] | | | MILTON DE LA CRUZ [...] - 03/16/2018 4:00 PM PDT | | [facility] OBSTETRICAL ULTRASOUND | | REPORT Pat. Name: | | ELIZABET BULLOCK. No: [id number] Date: 03/16/2018 1:45pmDOB, | | Age: 13 1995, 22Pregnancies: 2, Para 0010LMP: UnknownGA by | | Last: 72d3aAB Selected: w5d (From )ADELINE: 07/22/2018Referring MD: | | Sissy RENOographer: JESSICA GEORGES BS [facility] RVTCPT4: [id number]/Ind: | | Incomplete anatomy scan, possible | [...] ! ! ! x | | !Cardiac [place]/! ! ! ! x !Four Chamber ! [...] and ask for the | | perinatologist product support consultant. [phone] or [phone], ROYA, | | <Electronic Signature> 03/16/2018 04:00pmI [...] ask for the perinatologist on | |call. [phone] or [phone] | |MILTON DE LA CRUZ MD | [...]
--- OUTSIDE RECORDS SUMMARY | ~2019-05-12 | XMS | Encounter Summary ---
Demographics + + + | Address | [address] | | | [place] [address] | + + + | Home Phone | | + + + | Preferred Language | Unknown | + + + | Marital Status | Single | + + + | Shinto Affiliation | NRP | + + + | Race | White | + + + | Ethnic Group | Not or | + + + Author + + + | Organization | Unknown | + + + | Address | Unknown | + + + | Phone | Unavailable | + + + Support + + + + + | Name | Relationship | Address | Phone | + + + + + | Anderson Rose | ECON | [address] | | | [place] | | [place] [address] | | + + + + + | Gracie Turcios | ECON | [place] | | + + + + + Care Team Providers + +------+ + | Care Steam Finisher Name | Role | Phone | + +------+ + | Anisha Rivera | PCP | | + +------+ + Encounter Details +--------+--------+ + + + | Date | Type | Department | Care Team | Description | +--------+--------+ + + + | 10/27/ | Travel | | | | | 2019 | | | | | +--------+--------+ + [...]
--- OUTSIDE RECORDS SUMMARY | ~2019-05-12 | XMS | Encounter Summary ---
Demographics + + + | Address | [address] | | | [place] [address] | + + + | Home Phone | | + + + | Preferred Language | Unknown | + + + | Marital Status | Single | + + + | Advent Affiliation | NRP | + + + | Race | White | + + + | Ethnic Group | Not or | + + + Author + + + | Author | [facility] | + + + | Organization | [facility] | + + + | Address | Unknown | + + + | Phone | Unavailable | + + + Support + + + + + | Name | Relationship | Address | Phone | + + + + + | Anderson Rose | ECON | [address] | | | [place] | | [place] [address] | | + + + + + | Gracie Turcios | ECON | [place] | | + + + + + Care Team Providers + +------+ + | Care Ict Sales Assistant Name | Role | Phone | + +------+ + | Anisha Rivera | PCP | | + +------+ + Encounter Details +--------+ + + + + | Date | Type | Department | Care Team | Description | +--------+ + + + + | 07/22/ | Hospital | Post Care | | | | 2019 | Encounter | Clinic at [facility] | | | | | | Hospital [address] | | | | | | [place], | | | | | | [place] [address] | | | +--------+ + + + [...] + + + | Blood Pressure | 124/86 | 07/22/2018 12:00 PM | | | | | PST | | + + + + + | Pulse | 98 | 07/22/2018 12:00 PM | | | | | PST | | + + + + + | Temperature | 36.8 C (98.3 F) | 07/22/2018 12:00 PM | | | | | PST | | + + + + + | Respiratory Rate | 18 | 07/22/2018 12:00 PM | | | | | PST [...]
--- OUTSIDE RECORDS SUMMARY | ~2019-05-12 | XMS | Encounter Summary ---
Demographics + + + | Address | [address] | | | [place] [address] | + + + | Home Phone [...] | | [place] | | [place] [address] | | + + + + + | Gracie Turcios | ECON | [place] | | + + + + + Care Team Providers + +------+ + | Care Thermostat Maker Name | Role | Phone | [...] + + + | 07/02/ | | [facility] | | Obstetric US Scan | | 2019 | | [facility] [address] | | | | | | [address] [facility] | | | | | | [address] [place], [place] | | | | | | [address] | | | | | | [phone] | | | +--------+ + + + [...] documented as of this encounter Progress Notes Leonela Luke MD - 07/02/2018 11:00 AM PSTGrowth with tech documented in this encounter Plan of Treatment Not on filedocumented as of this encounter Procedures + +--------+ + + + | Procedure Name | Priori | Date/Time | Associated Diagnosis | Comments | | | ty | | | | + +--------+ + + + | CLINIC OB ONE OR | Routin | 07/02/2018 | Insulin controlled | Results for this | | MORE FETUSES LIMITED | e | 11:27 AM | gestational | procedure are in the | | | | PST | diabetes mellitus | results section. | | | | | (GDM) in second | | | | | | trimester | | + +--------+ + + + documented in this encounter Results US CLINIC OB ONE OR MORE FETUSES LIMITED (07/02/2018 11:27 AM PST) + + | Specimen | + + | | + + + + + | Impressions | Performed At | + + + | History: 23 y.o. at 37w1d gestation presenting for a | [facility] | | growth scan secondary to BMI and GDM. Findings: Espinoza in | DEPARTMENT OF | | cephalic presentation. Placenta: Anterior BPD: 9.2 cm (50%) 37w | RADIOLOGY | | 1d HC: 34.3 cm (91%) 39w 4d AC: 33.8 cm (59%) 37w 5d FL: 7.3 cm | | | (51%) 37w 2d EFW: 3296 grams (7lb 4 oz) (77% for GA) JUANI: | | | 27.38 cm MVP: 10.1 cm Impression: 23 y.o. at 37w1d | | | gestation with BMI and GDM growth at the 77%ile and 27.38 JUANI. | | | Mild polyhydramnios. Recommendations: Repeat JUANI in 1 week. | | | Performed by pharmacy laboratory technician. Type of ultrasound: ABDOMINAL. Read by | | | BARRERA HSIEH MD on 07/02/18 | | + + + + +---------+ + + | Performing | Address | City[facility] | Phone Number | | Organization | [...]
--- OUTSIDE RECORDS SUMMARY | ~2019-05-12 | XMS | Encounter Summary ---
Demographics + + + | Address | [address] | | | [place] [address] | + + + | Home Phone | | + + + | Preferred Language | Unknown | + + + | Marital Status | Single | + + + | Latter Day Affiliation | NRP | + + + | Race | White | + + + | Ethnic Group | Not or | + + + Author + + + | Author | [facility] | + + + | Organization | [facility] | + + + | Address | Unknown | + + + | Phone | Unavailable | + + + Support + + + + + | Name | Relationship | Address | Phone | + + + + + | Anderson Rose | ECON | [address] | | | [place] | | [place] [address] | | + + + + + | Gracie Turcios | ECON | [place] | | + + + + + Care Team Providers + +------+ + | Care Master Rigger Name | Role | Phone | + +------+ + | Anisha Rivera | PCP | | + +------+ + Reason for Referral Physical Therapy (Routine) +--------+--------+ + + + + | Status | Reason | Specialty | Diagnoses / | Referred By | Referred To | | | | | Procedures | Contact | Contact | +--------+--------+ + + + + | Closed | | Physical | Diagnoses | Rivera, | [facility] | | | | Therapy | Exaggerated | Anisha Barraza, | [address] | | | | | lordosis of | STEEL RULE DIE MAKER APPRENTICE [address] | | | | | lumbar | [address] | [place], | | | | | spine | [place], [place] | [place] [address] | | | | | Chronic | [address] | Phone: | | | | | midline low | Phone: | [phone] | | | | | back pain | [phone] | Fax: | | | | | without | Fax: | [phone] | | | | | sciatica | [phone] | | | | | | Procedures | | | | | | | PHYSICAL | | | | | | | THERAPY | | | | | | | REFERRAL | | | +--------+--------+ + + + + Reason for Visit +--------+ + | Reason | Comments | +--------+ + | X-ray | | +--------+ + Encounter Details +--------+ + + + + | Date | Type | Department | Care Team | Description | +--------+ + + + + | 02/11/ | Telephone | [facility] | Miguel Anisha Barraza, | X-ray | | 2016 | | Medicine [address] | [employer] APPRENTICE [address] | | | | | [address] [place], | [place], [place] | | | | | [place] [address] | [address] | | | | | [phone] | [phone] | | | | | | | [...] + | Diagnosis | + + | 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
--- OUTSIDE RECORDS SUMMARY | ~2019-05-12 | XMS | Encounter Summary ---
Demographics + + + | Address | [address] | | | [place] [address] | + + + | Home Phone | | + + + | Preferred Language | Unknown | + + + | Marital Status | Single | + + + | Bahai Affiliation | NRP | + + + [...] | | [place] | | [place] [address] | | + + + + + | Gracie Turcios | ECON | [place] | | + + + + + Care Team Providers + +------+ + | Care Plant Tech Name | Role | Phone | + +------+ + | Anisha Rivera | PCP | | + +------+ + Reason for Visit + + + | Reason | Comments | + + + | Pre-Admission | | + + + Encounter Details +--------+ + + + + | Date | Type | Department | Care Team | Description | +--------+ + + + + | 07/09/ | PreAdmit | [facility] | Natasha Jones, | Pre-Admission | | 2019 | Orders | [facility] [address] | | | | | [address] [place], [place] | | | | | [address] [place], [place] | [address] | | | | | [address] | [phone] | | | | | [phone] | | | +--------+ + + + [...]
--- OUTSIDE RECORDS SUMMARY | ~2019-05-12 | XMS | Encounter Summary ---
Demographics + + + | Address | [address] | | | [place] [address] | + + + | Home Phone [...] Author + + + | Author | [facility] | + + + | Organization | [facility] | + + + | Address | Unknown | + + + | Phone | Unavailable | + + + Support + + + + + | Name | Relationship | Address | Phone | + + + + + | Anderson Rose | ECON | [address] | | | [place] | | [place] [address] | | + + + + + | Gracie Turcios | ECON | [place] | | + + + + + Care Team Providers + +------+ + | Care Cleaner Name | Role | Phone | + +------+ + | Anisha Rivera | PCP | | + +------+ + Reason for Visit + + + | Reason | Comments | + + + | Blood Glucose Level | | + + + Encounter Details +--------+ + + + + | Date | Type | Department | Care Team | Description | +--------+ + + + + | 05/21/ | Telephone | [facility] | Natasha Jones, | Blood Glucose Level | | 2017 | | [facility] [address] | [address] | | | | | [address] [place], [place] | | | | | [address] [place], [place] | [address] | | | | | [address] | [phone] | | | | | [phone] | | | +--------+ + + + [...]
--- OUTSIDE RECORDS SUMMARY | ~2019-05-12 | XMS | Encounter Summary ---
Demographics + + + | Address | [address] | | | [place] [address] | + + + | Home Phone [...] | | Garrett | | [place] [address] | | + + + + + | Gracie Turcios | ECON | [place] | | + + + + + Care Team Providers + +------+ + | Care Airline Security Representative Name | Role | Phone | [...] | | 2019 | Encounter | at [facility] | CNM [address] | | | | | [address] The | [address] | | | | | [place], [place] | [place], [place] | | | | | [address] | [address] | | | | | [phone] | [phone] | | | | | | | | | | | | Natasha Jones MD | | | | | | [address], | | | | | | [address] [place], [place] | | | | | | [address] | | | | | | [phone] | | | | | | | [...] BL 125, moderate variability, +accels, no decels Mitchell - acontractile Impression: Reactive NST BP slightly [...]
--- OUTSIDE RECORDS SUMMARY | ~2019-05-12 | XMS | Encounter Summary ---
Demographics + + + | Address | [address] | | | [place] [address] | + + + | Home Phone [...] | | Garrett | | [place] [address] | | + + + + + | Gracie Turcios | ECON | [place] | | + + + + + Care Team Providers + +------+ + | Care Play Therapist Name | Role | Phone | + [...] + + + | 06/08/ | | [facility] | | monitoring | | 2018 | | [facility] [address] | | | | | | E [facility] | | | | | | [address] [place], [place] | | | | | | [address] | | | | | | [phone] | | | +--------+ + + + [...]
--- OUTSIDE RECORDS SUMMARY | ~2019-05-12 | XMS | Encounter Summary ---
Demographics + + + | Address | [address] | | | [place] [address] | + + + | Home Phone | | + + + | Preferred Language | Unknown | + + + | Marital Status | Single | + + + | Yazdanism Affiliation | NRP | + + + [...] | | Garrett | | [place] [address] | | + + + + + | Gracie Turcios | ECON | [place] | | + + + + + Care Team Providers + +------+ + | Care Integrity Analyst Name | Role | Phone | [...] + + | 04/08/ | Refill | [place] | Kapil Rutherford, | Refill Request | | 2018 | | [facility] [address] | CNM [address] | | | | | E [address] | [address] | | | | | [address] [place], [place] | [place] | | | | | [address] | [address] | | | | | [phone] | [phone] | | | | | | | [...]
--- OUTSIDE RECORDS SUMMARY | ~2019-05-12 | XMS | Encounter Summary ---
Demographics + + + | Address | [address] | | | [place] [address] | + + + | Home Phone | | + + + | Preferred Language | Unknown | + + + | Marital Status | Single | + + + | Jew Affiliation | NRP | + + + [...] | | Garrett | | [place] [address] | | + + + + + | Gracie Turcios | ECON | [place] | | + + + + + Care Team Providers + +------+ + | Care Design Drafter Name | Role | Phone | + +------+ + | Anisha Rivera | PCP | | + +------+ + Encounter Details +--------+ + + + + | Date | Type | Department | Care Team | Description | +--------+ + + + + | 09/26/ | Document-Sc | [facility] | Anisha Rivera, | | | 2016 | anned | Medicine [address] | 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
--- OUTSIDE RECORDS SUMMARY | ~2019-05-12 | XMS | Encounter Summary ---
Demographics + + + | Address | [address] | | | [place] [address] | + + + | Home Phone | | + + + | Preferred Language | Unknown | + + + | Marital Status | Single | + + + | Jewish Affiliation | NRP | + + + [...] | | Garrett | | [place] [address] | | + + + + + | Gracie Turcios | ECON | [place] | | + + + + + Care Team Providers + +------+ + | Care Cosmetology Professor Name | Role | Phone | + +------+ + | Anisha Rivera | PCP | | + +------+ + Encounter Details +--------+------+ + + + | Date | Type | Department | Care Team | Description | +--------+------+ + + + | 01/12/ | Lab | Laboratory at | | BMI 40.0-44.9, adult | | 2018 | | [facility] | | ([facility]) | | | | Center [address] | | | | | [address] [place] | | | | | | [address] | | | +--------+------+ + + + [...] + | PROTEIN, URINE | Routin | 01/12/2018 | BMI 40.0-44.9, | Results for this | | | e | 6:39 AM | adult (HCC) | procedure are in the | | | | PDT | | results section. | + +--------+ + + + documented in this encounter Results PROTEIN, URINE (01/12/2018 6:39 [...] PROTEIN/CRE | 0.07 | <0.16 mg/mg | [facility] | | | ATININE | | | [...] + + + | [facility] | [place] | [place] [address] | [phone] | | MEDICAL CENTER | Streets | | | + + + + + documented in this encounter Visit Diagnoses + + | Diagnosis | + + | BMI 40.0-44.9, adult (HCC) Body Mass Index 40.0-44.9, adult | + + documented in this encounter"
--- OUTSIDE RECORDS SUMMARY | ~2019-05-12 | XMS | Encounter Summary ---
Demographics + + + | Address | [address] | | | [place] [address] | + + + | Home Phone | | + + + | Preferred Language | Unknown | + + + | Marital Status | Single | + + + | Restorationism Affiliation | NRP | + + + [...] | | Garrett | | [place] [address] | | + + + + + | Gracie Turcios | ECON | [place] | | + + + + + Care Team Providers + +------+ + | Care Mirror Inspector Name | Role | Phone | [...] + + | 07/17/ | Anesthesia | [facility] | Say [place] | | | 2019 | Event | [facility] [address] | [address] | | | | | E [address] | | | | | | [place] | | | | | | [address] | | | +--------+ + + + + Anesthesia Record + + + + + | Procedure Name | Responsible | Anesthesia Start | Anesthesia Stop Time | | | Anesthesiologist | Time | | + + + + + | urgent | Say Dallas, | 07/17/184 | 07/17/18 5944 | | (N/A Abdomen) | MD | | | + + + + + +----+---+ + + | Da | T | Event | Comment | | te | i | | | | | m | | | | | e | | | +----+---+ + + | 02 | 2 | Eq Check | Anesthesia machine checked Equipment verified | | /0 | 2 | | | | 1/ | 4 | | | | 20 | 4 | | | | 19 | | | | +----+---+ + + | | 2 | Pt. Check | Prior to anesthesia start, pt. Identified, examined, chart | | | 2 | | reviewed, PARQ held, anesthetic plan made or approved by | | | 4 | | attending anesthesiologist. NPO status confirmed as appropriate | | | 4 | | for procedure Preoperative evaluation: unchanged | +----+---+ + + | | 2 | An Start | | | | 2 | | | | | 4 | | | | | 4 | | | +----+---+ + + | | 2 | An Start | | | | 2 | Data | | | | 4 | | | | | 4 | | | +----+---+ + + | | 2 | Vitals | Monitors applied Vital signs checked Patient ready for anesthesia | | | 2 | Checked | | | | 4 | | | | | 4 | | | +----+---+ + + | | 2 | an leo now | Re-inject epidural. Negative aspiration for blood or fluid.. | | | 2 | | Injects sterile saline easily without resistance. | | | 4 | | | | | 5 | | | +----+---+ + + | | 2 | Abx | | | | 2 | Administere | | | | 5 | d | | | | 1 | | | +----+---+ + + | | 2 | Ready | | | | 2 | | | | | 5 | | | | | 2 | | | +----+---+ + + | | 2 | Incision | | | | 2 | | | | | 5 | | | | | 8 | | | +----+---+ + + | | 2 | Baby | | | | 3 | Delivered | | | | 0 | | | | | 5 | | | +----+---+ + + | | 2 | Surgery end | | | | 3 | | | | | 3 | | | | | 4 | | | +----+---+ + + | | 2 | an stop | | | | 3 | data | | | | 3 | | | | | 7 | | | +----+---+ + + | | 2 | PACU Rpt | | | | 3 | Given | | | | 5 | | | | | 4 | | | +----+---+ + + | | 2 | Anesthesia | | | | 3 | End | | | | 5 | | | | | 4 | | | +----+---+ + + +------+ | Meds | +------+ + +---------+ | Name | Total | + +---------+ | bupivacaine inj 0.5% | 20 mL | + +---------+ | ceFAZolin in NS syringe | 3 g | + +---------+ | fentaNYL inj | 100 mcg | + +---------+ | morphine inj 0.5 mg/mL | 3.5 mg | + +---------+ | dexamethasone IV | 10 mg | + +---------+ | ondansetron (ZOFRAN ODT) rapid | 4 mg | | dissolve tablet | | + +---------+ | metoclopramide inj | 10 mg | + +---------+ | NS IV | 700 mL | + +---------+ | lactated ringers IV infusion | 200 mL | + +---------+ + + | Name | + + | O2 FR Avance (Total Liters) | + + | Insp Sevo | + + | Et Sevo | + + + + | No [...] Arroyo RN; | 07/15/182114 by | 07/19/18 1030 by | | eral | Left; Hand; [...] | | +--------+ + + + | Urethr | 07/17/18; 1944; Cyrus CHAVEZ; 1; | 07/17/181944 by | 07/19/18 07 by | | al | Codie; 16 Fr.; 10 mL; 07/19/18; | Cyrus Aceves RN | Keyla Jones RN | | Benny | 0746; Per order | | | | er | | | | +--------+ + + [...] 5 mL | | | | (MARCAINE,SENSORCAINE-MPF) | | 19 10:59 | | | | | injection INTRAPROCEDURE PRN, | | PM PST | | | | | Starting 07/17/18 at 2246, | | | | | | | Until 07/17/18 at 2337 | | | | | | + +--------+ +------+------+------+ +-------+ +-------+---+---+ | Given | 07/17/19 | 5 mL | | | | | 19 10:52 | | | | | | PM PST | | | | +-------+ +-------+---+---+ | Given | 07/17/19 | 10 mL | | | | | 19 10:46 | | | | | | PM PST | | | | +-------+ +-------+---+---+ +---+---+ | | | +---+---+ + +-------+ +-----+---+---+ | ceFAZolin in Normal Saline | Given | 07/17/19 | 3 g | | | | syringe intravenous, | | 19 10:48 | | | | | INTRAPROCEDURE PRN, Starting Fri | | PM PST | | | | | 07/17/18 at 2248, Until 07/17/18 | | | | | | | at 2337 | | | | | | + +-------+ +-----+---+---+ +---+---+ | | | +---+---+ + +-------+ +-------+---+---+ | dexamethasone (DECADRON) | Given | 07/17/19 | 10 mg | | | | injection intravenous, | | 19 11:25 | | | | | INTRAPROCEDURE PRN, Starting Fri | | PM PST | | | | | 07/17/18 at 2325, Until 07/17/18 | | | | | | | at 2337 | | | | | | + +-------+ +-------+---+---+ +---+---+ | | | +---+---+ + +-------+ +---------+---+---+ | fentaNYL (SUBLIMAZE) injection | Given | 07/17/19 | 100 mcg | | | | INTRAPROCEDURE PRN, Starting Fri | | 19 10:55 | | | | | 07/17/18 at 2255, Until 07/17/18 | | PM PST | | | | | at 2337 | | | | | | + +-------+ +---------+---+---+ +---+---+ | | | +---+---+ + + + +---+---+---+ | lactated Ringers IV | given by | 07/17/19 | | | | | intravenous, INTRAPROCEDURE | | 19 11:55 | | | | | CONTINUOUS PRN, Starting Fri | anesthes | PM PST | | | | | 07/17/18 at 2325, Until 07/17/18 | iology | | | | | | at 2355 | | | | | | + + + +---+---+---+ +---------+ +---+---+---+ | New Bag | 07/17/19 | | | | | | 19 11:25 | | | | | | PM PST | | | | +---------+ +---+---+---+ +---+---+ | | | +---+---+ + +-------+ +-------+---+---+ | metoclopramide HCl (REGLAN) | Given | 07/17/19 | 10 mg | | | | injection intravenous, | | 19 11:25 | | | | | INTRAPROCEDURE PRN, Starting Fri | | PM PST | | | | | 07/17/18 at 2325, Until 07/17/18 | | | | | | | at 2337 | | | | | | + +-------+ +-------+---+---+ +---+---+ | | | +---+---+ + +-------+ +--------+---+---+ | morphine injection | Given | 07/17/19 | 3.5 mg | | | | INTRAPROCEDURE PRN, Starting Fri | | 19 10:55 | | | | | 07/17/18 at 2255, Until 07/17/18 | | PM PST | | | | | at 2337 | | | | | | + +-------+ +--------+---+---+ +---+---+ | | | +---+---+ + +-------+ +------+---+---+ | ondansetron ODT (ZOFRAN ODT) | Given | 07/17/19 | 4 mg | | | | tablet oral, INTRAPROCEDURE PRN, | | 19 11:25 | | | | | Starting 07/17/18 at 2325, | | PM PST | | | | | Until 07/17/18 at 2337 | | | | | | + +-------+ +------+---+---+ +---+---+ | | | +---+---+ + +---------+ +---+---+---+ | sodium chloride 0.9 % (NS) IV | New Bag | 07/17/19 | | | | | infusion INTRAPROCEDURE | | 19 10:47 | | | | | CONTINUOUS PRN, Starting Fri | | PM PST | | | | | 07/17/18 at 2247, Until 07/17/18 | | | | | | | at 2337 | | | | | | + +---------+ +---+---+---+ +---+---+ | | | +---+---+ documented in this encounter"
--- OUTSIDE RECORDS SUMMARY | ~2019-05-12 | XMS | Encounter Summary ---
Demographics + + + | Address | [address] | | | [place] [address] | + + + | Home Phone | | + + + | Preferred Language | Unknown | + + + | Marital Status | Single | + + + | Synagogue Affiliation | NRP | + + + [...] | | Garrett | | [place] [address] | | + + + + + | Gracie Turcios | ECON | [place] | | + + + + + Care Team Providers + +------+ + | Care Garage Attendant Name | Role | Phone | [...] + + + | 06/12/ | | [place] | | care | | 2018 | | [facility] [address] | | ([place]) | | | | E [facility] | | | | | | [address] [place], [place] | | | | | | [address] | | | | | | [phone] | | | +--------+ + + + [...]
--- OUTSIDE RECORDS SUMMARY | ~2019-05-12 | XMS | Encounter Summary ---
Demographics + + + | Address | [address] | | | [place] [address] | + + + | Home Phone [...] | | Garrett | | [place] [address] | | + + + + + | Gracie Turcios | ECON | [place] | | + + + + + Care Team Providers + +------+ + | Care Balloon Dipper Name | Role | Phone | + [...] + + + + | 12/28/ | Telephone | [place] | Jennifer Burgos MD | care | | 2016 | | [facility] [address] | | | | | | E [facility] | | | | | | [address] [place], [place] | | | | | | [address] | | | | | | [phone] | | | +--------+ + + + [...] filedocumented as of this encounter Results HCG BETA, PLASMA (12/29/2015 2:08 PM PDT) + +-------+ + + + | Component | Value | Ref Range | Performed | Pathologist | | | | | At | Signature | + +-------+ + + + | HCG BETA, | <0 | mIU/mL | [facility] | | | PLASMA [...] | + + + + + | [facility] | And | [place] [address] | [phone] | | [facility] | Streets | | | + + + + + documented in this encounter Visit Diagnoses + + | Diagnosis | + + | Bleeding in early - Primary Unspecified hemorrhage in early , | | unspecified as to episode of care | + + documented in this encounter"
--- OUTSIDE RECORDS SUMMARY | ~2019-05-12 | XMS | Encounter Summary ---
Demographics + + + | Address | [address] | | | [place] [address] | + + + | Home Phone [...] | | Garrett | | [place] [address] | | + + + + + | Gracie Turcios | ECON | [place] | | + + + + + Care Team Providers + +------+ + | Care Bulb Brander Name | Role | Phone | + [...] | | | mellitus | , | [address] | | | | | (GDM) in | [address] | [place], | | | | | first | [place], [place] | [place] [address] | | | | | trimester, | [address] | Phone: | | | | | gestational | Phone: | [phone] | | | | | diabetes | [phone] | Fax: | | | | | method of | Fax: | [phone] | | | | | control | [phone] | | | | | | unspecified [...] [place], [place] | | | | | [address] | [address] | | | | | [phone] | | | +--------+ + + + [...] structions: Thank you for meeting with the clinical nurse educator today. These are the healthy [...] education visit. [address] NUTRITION AT [address] [phone] My Diabetes Self-Management Support Plan Let your educator know if you need help accessing the websites. Emotional Support ___National [place] on Mental Illness (DEBRA) (Depression, bipolar and other support) [phone]; www.debra.org ___Depression & Bipolar Support [place]- [phone]-www.dbsalliance.org ___Anxiety &Depression Association of [place] (find local therapist by zip code at www.ada a.org) National phone number [phone] ___National Suicide Prevention Lifeline- [phone] Weight Management ___Mind & Body Medicine Weight Loss Support Group- of every month-2nd floor [facility]. [phone] ___Weight Watchers. [phone]. wwwSpinPunch ___Over eaters Anonymous [phone] (support group)- www.oa.org ___TOPS (Taking Off Pounds Sensibly) [place] [phone] ___[facility] [phone] (steps to wellness, offered in [place]orese and Bermudian) www.QuickProNoteseaExepron.org https://oa.org www.theStarGreetzerformindfuleating.org Exercise ___[facility] Fitness Center. [phone] ___[facility] Medical Exercise Program. [phone] ___Curves -[phone]- wwwAtrica.[employer] ___Soul to Soul Fitness [place] [phone] ___[facility], [address] [place]. [phone] ___[facility] Walking Group- [phone] ___Exercise videos at library or Youtube exercise videos ___OPB TV- Sit and Be Fit; Gentle yoga/stretching ___ [employer] walking 4.5 laps around the inside perimeter = 1 mile ___Other Diabetes Support Group ___ Type 1 Diabetes support group -contact xujh6lasubylsaf@[employer] Incail.com for meeting dates and location ___ Weight Loss Support Group [facility] 2nd Floor, of each month 12-1 pm, free- just show up ___Diabetes, gestational, and type 2 prevention websites www.diabetes.org (chinese diabetes association) www.niddk.nih.gov/health-information/diabetes#topics www.cdc.gov/diabetes www.diabetes.niddk.nih.gov www.ndep.nih.gov www.eatright.org www.dlife.[employer] www.calorie.com www.tracker.diabetes.org www.steviaextractintheraw.[employer] www.mayoclinic.org pharmaceutical/glucose meter websites Www.nlm.nih.gov/medlineplus/druginformation.html - National Library of Medicine's Herbs & S upplements Stress & Pain Relief ___[facility] Yoga classes. [phone] ___Mind & Body Mindfulness and Breath Work. [phone] ___[facility] Persistant Pain Education Program. [phone] ___Mind & Body Acupuncture Therapy. [phone] ___[facility]. [phone] Gestational Diabetes _X__Mommy Wellness Program. (in [place] [phone] and [place] [phone]) ___www.ncbi.nlm.nih.gov/pubmedhealth/EVO9486180 ___www.LLLI.org ([place] le[place] league international, breast feeding support) Journals ___Diabetes Forecast- [phone]- www.diabetesforecast.org ___Diabetes Self-Management- [phone]- www.diabetesselPredictry.[employer] ___Diabetes Health-www.diabetesselPredictry.com Apps ___Calorie Chintan ___Glucose Zeeshan (Free, tracks blood glucose, graphs) ___SparkQuote (Free, inspiring quote for the day) ___My Dwzi-y-Mfllr ___My Fitness Pal (free. Track food and [...] sh e get free fresh produce at [employer] on Fridays to supplement her budget. She [...] Healthy Eating N/A Education Plan: Support Plan: FeedHenry classes Education Plan: DSMT in 3 weeks [...] Madrigal RD,CDE Diabetes and Nutrition Services at [address], [address] [address] documented in thi s encounter Plan of Treatment Not on filedocumented as of this encounter Visit Diagnoses + + | Diagnosis | + + | Diet controlled gestational diabetes mellitus (GDM) in second trimester | + + documented in this encounter"
--- OUTSIDE RECORDS SUMMARY | ~2019-05-12 | XMS | Encounter Summary ---
Demographics + + + | Address | [address] | | | [place] [address] | + + + | Home Phone [...] Author + + + | Author | [facility] | + + + | Organization | [facility] | + + + | Address | Unknown | + + + | Phone | Unavailable | + + + Support + + + + + | Name | Relationship | Address | Phone | + + + + + | Anderson Rose | ECON | [address] | | | [place] | | [place] [address] | | + + + + + | Gracie Turcios | ECON | [place] | | + + + + + Care Team Providers + +------+ + | Care Beamer Hand Name | Role | Phone | + +------+ + | Anisha Rivera | PCP | | + +------+ + Reason for Visit + + + | Reason | Comments | + + + | Appointment | | + + + Encounter Details +--------+ + + + + | Date | Type | Department | Care Team | Description | +--------+ + + + + | 06/25/ | Telephone | [facility] | Ti, | Appointment | | 2019 | | [facility] [address] | MD [address] | | | | | [address] | [place] [address] | | | | | [address] [place], [place] | [place] | | | | | [address] | [address] | | | | | [phone] | [phone] | | | | | | | [...]
--- OUTSIDE RECORDS SUMMARY | ~2019-05-12 | XMS | Encounter Summary ---
Demographics + + + | Address | [address] | | | [place] [address] | + + + | Home Phone [...] Author + + + | Author | [facility] | + + + | Organization | [facility] | + + + | Address | Unknown | + + + | Phone | Unavailable | + + + Support + + + + + | Name | Relationship | Address | Phone | + + + + + | Anderson Rose | ECON | [address] | | | [place] | | [place] [address] | | + + + + + | Gracie Bullock | ECON | [place] | | + + + + + Care Team Providers + +------+ + | Care Clinical Nursing Intern Name | Role | Phone | + +------+ + | Anisha Rivera | PCP | | + +------+ + Encounter Details +--------+ + + + + | Date | Type | Department | Care Team | Description | +--------+ + + + + | 03/05/ | Outside | Center | Fiorella Reno, | | | 2018 | Referral | at [facility] [address] | CNM [address] | | | | Order | [address] | [address] | | | | | Mailcode: PV450 | [facility], [place] | | | | | [facility] | [address] | | | | | [facility] [place] | [phone] | | | | | [address] | | | | | | [phone] | | | +--------+ + + + [...] as of this encounter Results TELEMEDICINE ULTRASOUND (03/05/2018 7:22 AM PDT) + + | Specimen | + + | | + + + + + | Narrative | Performed At | + + + | [facility] | [facility] | | OBSTETRICAL ULTRASOUND REPORT | RADIOLOGY OB US | | | | | Pat. Name: ELIZABET BULLOCK Pat. No: [id number] | | | Study Date: 03/05/2018 8:03am , Age: 13 1995, 22 | | | Pregnancies: 2, Para 0010 LMP: Unknown GA by | | | US: 20w3d GA Selected: 20w1d (From Known E) ADELINE: | | | 07/22/2018 Referring MD: FIORELLA RENO Etl Software Engineer: Cassi | | | Brandon [facility]4: [id number] | | | | | | MEASUREMENTS & AGE GROWTH EVALUATION | | | Measurement GA Range Srce %for GA Ratios | | | ----- ---- ------- BPD 4.9 | | | cm 20w6d (45w4z-35i9x) Hadl BPD 70% FL/BPD 0.67 HC 18.1 cm 20w3d | | | (15f1m-00n5c) Hadl HC 60% FL/AC 0.20 AC 16.2 cm 21w2d | | | (12u1f-24j6d) Hadl AC 74% HC/AC 1.12 (1.06 - 1.24) FL 3.3 cm | | | 20w2d (38d6y-21e5z) Hadl FL 55% CI 0.79 (0.70 - 0.86) HL | | | 3.3 cm 21w0d (92x3u-97x7y) Sinan ONEILL 65% GA for sonogram 20w3d | | | (16d2q-42t2f) Weight Estimate: based on (BPD,HC,AC,FL) | | [...] ! | | | ! ! Cardiac [place]/! x ! ! | | | ! [...] | | US in 2 weeks at [facility] for anatomy completion and assessment of the | | | profile. Thank you very much for allowing us to help care for | | | your patient. If you have any questions, please feel free to call | | | our 24 hour phone consult number at any time and ask for the | | | perinatologist vmware consultant. [phone] or [phone] MARIO, | | | MD NATALIA <Electronic [...] - 03/05/2018 12:53 PM PDT | | [facility] OBSTETRICAL ULTRASOUND | | REPORT Pat. Name: | | ELIZABET BULLOCKLibby. No: [id number] Date: 03/05/2018 8:03amDOB, | | Age: 13 1995, 22Pregnancies: 2, Para 0010LMP: UnknownGA by US: | | [id number] Selected: 20w1d (From Known E)ADELINE: 07/22/2018Referring MD: SHADIA, | | MANDELYNNSonographer: Dany Ye4: | | [id number] | | & AGE GROWTH EVALUATIONMeasurement GA Range Srce %for | | GA Ratios ----- ---- ------- BPD 4.9 | | cm 20w6d (12i6z-49u3d) Hadl BPD 70% FL/BPD 0.67HC 18.1 cm 20w3d (08f5w-04u3b) Hadl HC | | 60% FL/AC 0.20AC 16.2 cm 21w2d (44n1f-04c1p) Hadl AC 74% HC/AC 1.12 (1.06 - 1.24)FL | | 3.3 cm 20w2d (90o8i-00t9z) Hadl FL 55% CI 0.79 (0.70 - 0.86)HL 3.3 cm 21w0d | | (63z6c-28a8i) Sinan HL 65%GA for sonogram 20w3d (84t2q-59v5n) Weight | | Estimate:based on (BPD,HC,AC,FL) [place] Weight: 379 gm (324-435gm) [facility] | | : 0lbs, 13ozMarkers for [...] | !Chest/Lungs/R! x ! ! ! !Cardiac [place]/! x ! ! | | ! !Four [...] follow up US in 2 weeks at [facility] | | for anatomy completion and assessment of the profile. Thank you very much for | | allowing us to help care for your patient. If you have any questions, please feel free | | to call our 24 hour phone consult number at any time and ask for the perinatologist on | | call. [phone] or [phone] MARTIN MD <Electronic | | Signature> 03/05/2018 [...] follow up US in 2 weeks at [facility] for anatomy | |completion and assessment of the profile. | |Thank you very much for allowing us to help care for your patient. | |If you have any questions, please feel free to call our 24 hour | |phone consult number at any time and ask for the perinatologist on | |call. [phone] or [phone] | |NATALIA MARTIN MD | | | [...] Diagnosis | + + | Encounter for routine screening for malformation using ultrasonics - Primary | + + documented in this encounter"
--- OUTSIDE RECORDS SUMMARY | ~2019-05-12 | XMS | Encounter Summary ---
Demographics + + + | Address | [address] | | | [place] [address] | + + + | Home Phone [...] | | [place] | | [place] [address] | | + + + + + | Gracie Turcios | ECON | [place] | | + + + + + Care Team Providers + +------+ + | Care Net Technical Architect Name | Role | Phone | [...] + + | 12/28/ | Telephone | [place] | Jennifer Burgos MD | care | | 2016 | | [facility] [address] | | | | | | [address] [facility] | | | | | | [address] [place], [place] | | | | | | [address] | | | | | | [phone] | | | +--------+ + + + [...] | + + + + + | [place] | And | [place] [address] | [phone] | | [facility] | Streets | | | + + + + + documented in this encounter Visit Diagnoses + + | Diagnosis | + + | Bleeding in early - Primary Unspecified hemorrhage in early , | | unspecified as to episode of care | + + documented in this encounter"
--- OUTSIDE RECORDS SUMMARY | ~2019-05-12 | XMS | Encounter Summary ---
Demographics + + + | Address | [address] | | | [place] [address] | + + + | Home Phone [...] | | [place] | | [place] [address] | | + + + + + | Gracie Turcios | ECON | [place] | | + + + + + Care Team Providers + +------+ + | Care Disintegrator Operator Name | Role | Phone | + +------+ + | Anisha Rivera | PCP | | + +------+ + Encounter Details +--------+------+ + + + | Date | Type | Department | Care Team | Description | +--------+------+ + + + | 01/14/ | Lab | Laboratory at | | Abnormal GTT | | 2017 | | [facility] | | (glucose tolerance | | | | Center [address] | | test) | | | | [address] [place], [place] | | | | | | [address] | | | +--------+------+ + + + [...] (H) | 60 - 140 mg/dL | [facility] | | | GLUCOSE-3GT | | | [...] | + + + + + | [facility] | And | [place] [address] | [phone] | | MEDICAL CENTER | Streets | [...] (H) | 60 - 153 mg/dL | [facility] | | | GLUCOSE-3GT | | | [...] + + | [place] | [address] [place] | [place] [address] | [phone] | | MEDICAL CENTER | Streets | | | + + + + + 3HR GLU ALAYNA TEST-1HR (01/14/2018 5:05 PM PDT) + +-------+ + + + | Component | Value | Ref Range | Performed | Pathologist | | | | | At | Signature | + +-------+ + + + | 1 HOUR | 167 | 60 - 180 mg/dL | [facility] | | | GLUCOSE-3GT | | | [...] + + | [place] | [address] [place] | [place] [address] | [phone] | | MEDICAL CENTER | Streets | [...] | + + + + + | [facility] | [place] | [place] [address] | [phone] | | [facility] | [facility] | | | + + + + + documented in this encounter Visit Diagnoses + + | Diagnosis | + + | Abnormal GTT (glucose tolerance test) Impaired glucose tolerance test | + + documented in this encounter"
--- OUTSIDE RECORDS SUMMARY | ~2019-05-12 | XMS | Encounter Summary ---
Demographics + + + | Address | [address] | | | [place] [address] | + + + | Home Phone [...] | | Garrett | | [place] [address] | | + + + + + | Gracie Turcios | ECON | [place] | | + + + + + Care Team Providers + +------+ + | Care Coatings Inspector Name | Role | Phone | [...] (Primary Dx) | | | | [place] [address] | [address] | | | | | [phone] | [phone] | | | | | | | [...] you tolerate this well. * Use a [place] Pot Morning and night (you can pick [...] Posadas PA - 09/30/2016 4:30 PM PDT [place] [id number] [place] [address] Patient: Elizabet Turcios : 1995 PCP: ARTHUR [...]
--- OUTSIDE RECORDS SUMMARY | ~2019-05-12 | XMS | Encounter Summary ---
Demographics + + + | Address | [address] | | | [place] [address] | + + + | Home Phone [...] | | [place] | | [place] [address] | | + + + + + | Gracie Turcios | ECON | [place] | | + + + + + Care Team Providers + +------+ + | Care Tax Preparer Name | Role | Phone | + [...] | | | 2019 | Event | [facility] | MD [place]ney | | | | | [address] | | | | | | [place] | | | | | | [address] | | | | | | [phone] | | | +--------+ + + + [...]
--- OUTSIDE RECORDS SUMMARY | ~2019-05-12 | XMS | Encounter Summary ---
Demographics + + + | Address | [address] | | | [place] [address] | + + + | Home Phone [...] | | [place] | | [place] [address] | | + + + + + | Gracie Turcios | ECON | [place] | | + + + + + Care Team Providers + +------+ + | Care Fish Frog Or Oyster Farmer Name | Role | Phone | + +------+ + | Ansiha Rivera | PCP | | + +------+ + Reason for Visit + + + | Reason | Comments | + + + | Obstetric US Scan | | + + + Encounter Details +--------+ + + + + | Date | Type | Department | Care Team | Description | +--------+ + + + + | 06/18/ | | [place] | | Obstetric US Scan | | 2019 | | [facility] [address] | | | | | | E [facility] | | | | | | [address] [place], [place] | | | | | | [address] | | | | | | [phone] | | | +--------+ + + + [...] this encounter Progress Carlos Neal MA - 06/18/2018 3:30 PM PSTAFI with tech today. documented in this encounter Plan of Treatment Not on filedocumented as of this encounter Procedures + +--------+ + + + | Procedure Name | Priori | Date/Time | Associated Diagnosis | Comments | | | ty | | | | + +--------+ + + + | CLINIC OB ONE OR | Routin | 06/18/2018 | High-risk | Results for this | | MORE FETUSES LIMITED | e | | in third | procedure are in the | | | | | trimester | results section. | + +--------+ + + + documented in this encounter Results CLINIC OB ONE OR MORE FETUSES LIMITED (06/18/2018) + + + | Impressions | Performed At | + + + | History: 23 y.o. at 35w1d gestation presenting for an JUANI | [facility]INT [facility] | | secondary to BMI 44, GDM, velamentous cord and polyhydramnios. | CARE TESTING | | Findings: Espinoza in cephalic presentation. Placenta: Anterior | | | JUANI 28.84 cm MVP: 8.4 cm Impression: 23 y.o. at 35w1d | | | gestation with Polyhydramnios. Recommendations: Continue | | | weekly AFIs. Performed by field evidence technician. Type of ultrasound: | | | ABDOMINAL. Read by Natasha Jones MD | | + + [...]
--- OUTSIDE RECORDS SUMMARY | ~2019-05-12 | XMS | Encounter Summary ---
Demographics + + + | Address | [address] | | | [place] [address] | + + + | Home Phone [...] | | [place] | | [place] [address] | | + + + + + | Gracie Turcios | ECON | [place] | | + + + + + Care Team Providers + +------+ + | Care Landscape Crew Leader Name | Role | Phone | + +------+ + | Anisha Rivera | PCP | | + +------+ + Reason for Visit + + + | Reason | Comments | + + + | Test Results | Patient is here today to go over her test results. | + + + Encounter Details +--------+---------+ + + + | Date | Type | Department | Care Team | Description | +--------+---------+ + + + | 10/27/ | Office | [facility] | Anisha Rivera, | Prediabetes (Primary | | 2019 | Visit | Medicine [address] | TENNIS BALL COVER CEMENTER [address] | Dx); Encounter for | | | | [place], | [place], [place] | surveillance of | | | | [place] [address] | [address] | transdermal patch | | | | [phone] | [phone] | hormonal | | | | | | contraceptive | | | | | | device; Screening | | | | | | for depression; | | | | | | | | | | | | depression; Need for | | | | | | vaccination | +--------+---------+ + + + Social History [...] + + + | Blood Pressure | 120/82 | 10/27/2018 7:55 AM | | | | | PDT | | + + + + + | Pulse | 93 | 10/27/2018 7:55 AM | | | | | PDT | | + + + + + | Temperature | 37.1 C (98.8 F) | 10/27/2018 7:55 AM | | | | | PDT | | + + + + + | Respiratory Rate | - | - | | + + + + + | Oxygen Saturation | 99% | 10/27/2018 7:55 AM | | | | | PDT | | + + + + + | Inhaled Oxygen | - | - | | | Concentration | | | | + + + + + | Weight | 115.3 kg (254 lb 3.2 | 10/27/2018 7:55 AM | | | | oz) | PDT | | + + + + + | Height | 157.5 cm (5' 2") | 10/27/2018 7:55 AM | | | | | PDT | | + + + + + | Body Mass Index | 46.49 | 10/27/2018 7:55 AM | | | | | PDT | | + + + + + documented in this encounter Patient Instructions Patient Instructions Anisha Rivera FNP - 10/27/2018 8:00 AM PDTGoals: - walking for 15 minutes after work three days per week - decreasing pasta to every other night Ideally daily intake should consist of 50% veggies, 25% protein and 25% grainsElectronicall y signed by ARTHUR Waters at 10/27/2018 8:39 AM PDT documented in this encounter Progress Notes Moira Wing MA - 10/27/2018 8:00 AM PDT Family Medicine Acute Visit Date of Service: 10/27/18, 7:59 AM Providers Involved in Care of Patient: Leotearmando as of 10/27/2018 PCP: ARTHUR Waters Encounter Provider: ARTHUR Waters Chief Complaint: Patient is here today to go over her test results. HPI: Ms. Turcios is presents today with concerns. Three months , she had GDM during and had a recent GTT showing elevated glucose levels in prediabetic range. She reports she met with a infrastructure architect twice during this time for further education but admit s she didn't really make any changes and left the book of information in the car. She knows he eats too many carbs and reports she eats pasta every day, sometimes then entir e pot. Her diet is carbohydrate heavy. She does consume vegetables and protein but mainly ca rbs. She doesn't drink much soda but does drink a lot of milk, reports she can drink up to 1 /2 gallon per day with ease. She does also have a blended coffee drink nearly daily. Otherwi se primarily drinks water. 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 Family history of DM in mom Struggling with some depression, has good support from partner, and actually enj oyed going back to work to help have something for herself again. Denies SI or thoughts of harming baby Declines additional threatment now with medications or counseling, agreeable to follow-up i n 1 month Their chronic medical issues include Patient Active Problem List Diagnosis High-risk in third trimester BMI 45.0-49.9, adult (HCC) Insulin controlled gestational diabetes mellitus (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 trimester Velamentous insertion of umbilical cord in third trimester URI with cough and congestion Acute non-recurrent maxillary sinusitis ROS: Review of Systems Constitutional: Negative for chills and fever. Respiratory: Negative for cough and shortness of breath. Cardiovascular: Negative for chest pain and palpitations. Gastrointestinal: Negative for abdominal pain, nausea and vomiting. Genitourinary: Negative for dysuria. Musculoskeletal: Negative for myalgias. Neurological: Negative for dizziness, loss of consciousness and headaches. Allergies: Allergies Allergen Reactions Peanut Anaphylaxis Avoids all nuts Penicillin Anaphylaxis and Hives All brothers have had this reaction to penicillin so patient does not take this medicatio n Lactose Stomach Upset Medications: Current Outpatient Medications: ethinyl estradiol-norelgestromin 150-35 mcg/24 hr transderm al patch weekly, Apply 1 patch to skin every seven days. Apply 1 patch every 7 days for 3 we eks, then take 7 days off, then apply a new patch, Disp: 3 patch, Rfl: 11 Physical Exam: BP 120/82 (BP Location: Left upper arm, Patient Position: Sitting) | Pulse 93 | Temp 37.1 C (98.8 F) (Oral) | Ht 1.575 m (5' 2") | Wt 115.3 kg (254 lb 3.2 oz) | SpO2 99% | B RI 46.49 kg/m | BSA 2.25 m Physical Exam Constitutional: She is oriented to person, place, and time and well-developed, well-nourish ed, and in no distress. HENT: Head: Normocephalic. Eyes: Conjunctivae are normal. Neck: Normal range of motion. Pulmonary/Chest: Effort normal. Neurological: She is alert and oriented to person, place, and time. Psychiatric: Her mood appears not anxious. She does not exhibit a depressed mood. She has a flat affect. Assessment and Plan: (R73.03) Prediabetes (primary encounter diagnosis) (Z30.45) Encounter for surveillance of transdermal patch hormonal contraceptive device (Z13.31) Screening for depression Plan: PQRI DOC CLIN DEPRESSION SCR STD TOOL (F53.0) depression Discussed treatment options for prediabetes including lifestyle modification and medication therapy with metformin. Patient tolerate metformin very well while . Emphasize imp ortance of making diet changes with carb reduction. Patient declines seen dietitian as she is ready seen someone twice during . She is agreeable to increasing exercise. Today we set goals including decreasing pasta intake to every other day (as opposed to shar y), and engaging in 15 minutes exercise in the form walking 3 days per week. Will follow up in 4-6 weeks to elaborate on these goals. Patient struggling with depression which appears mild to moderate in nature. Denies SI or thoughts of harming baby Declines additional threatment now with medications or counseling, agreeable to follow-up i n 1 month This was a visit of 28 minutes of which greater than 50% was spent on verbal counseling for above conditions. Anisha GIBSON, [facility] Family Medicine [facility] P: [phone] F: [phone] documented in this encounter Plan of Treatment Not on filedocumented as of this encounter Visit Diagnoses + + | Diagnosis | + + | Prediabetes - Primary Other abnormal glucose | + + | Encounter for surveillance of transdermal patch hormonal contraceptive device | + + | Screening for depression | + + | depression Mental disorders of mother, complicating , childbirth, | | or the puerperium, unspecified as to episode of care | + + | Need for vaccination Need for prophylactic vaccination and inoculation against | | unspecified single disease | + + documented in this encounter
--- OUTSIDE RECORDS SUMMARY | ~2019-05-12 | XMS | Encounter Summary ---
Demographics + + + | Address | [address] | | | [place] [address] | + + + | Home Phone [...] + + + | Author | [facility] | + + + | Organization | [facility] | + + + | Address | Unknown | + + + | Phone | Unavailable | + + + Support + + + + + | Name | Relationship | Address | Phone | + + + + + | Anderson Rose | ECON | [address] | | | [place] | | [place] [address] | | + + + + + | Gracie Turcios | ECON | [place] | | + + + + + Care Team Providers + +------+ + | Care Eyelet Maker Name | Role | Phone | [...] | | | | Mailcode: PV450 | [facility], [place] | | | | | [facility] | [address] | | | | | [facility] [place] | [phone] | | | | | [address] | | | | | | [phone] | | | +--------+ + + + [...]
--- OUTSIDE RECORDS SUMMARY | ~2019-05-12 | XMS | Encounter Summary ---
Demographics + + + | Address | [address] | | | [place] [address] | + + + | Home Phone | | + + + | Preferred Language | Unknown | + + + | Marital Status | Single | + + + | Holiness Affiliation | NRP | + + + [...] | | [place] | | [place] [address] | | + + + + + | Gracie Turcios | ECON | [place] | | + + + + + Care Team Providers + +------+ + | Care Admissions Recruiter Name | Role | Phone | + +------+ + | Anisha Rivera | PCP | | + +------+ + Reason for Referral Consultation (Routine) +--------+--------+ + + + + [...] | | | mellitus | , | [address] | | | | | (GDM) in | [address] | [place], | | | | | first | [place], [place] | [place] [address] | | | | | trimester, | [address] | Phone: | | | | | gestational | Phone: | [phone] | | | | | diabetes | [phone] | Fax: | | | | | method of | Fax: | [phone] | | | | | control | [phone] | | | | | | unspecified [...] | +--------+ + + + + | 01/15/ | Telephone | [facility] | Natasha Jones, | Lab Results (GTT) | | 2018 | | [facility] [place] [address] | [address] | | | | | [address] [place], [place] | | | | | [address] [place], [place] | [address] | | | | | [address] | [phone] | | | | | [phone] | | | +--------+ + + + [...] + | Gestational diabetes mellitus (GDM) in first trimester, gestational diabetes method of | | control unspecified - Primary | + + documented in this encounter"
--- OUTSIDE RECORDS SUMMARY | ~2019-05-12 | XMS | Encounter Summary ---
Demographics + + + | Address | [address] | | | [place] [address] | + + + | Home Phone [...] | | [place] | | [place] [address] | | + + + + + | Gracie Turcios | ECON | [place] | | + + + + + Care Team Providers + +------+ + | Care Cardroom Attendant Name | Role | Phone | [...] + + + | 05/28/ | | [place] | Ti, | ; | | 2018 | | [facility] [address] | MD Leonela [address] | monitoring | | | | [address] | [place] [address] | | | | | [address] [place], [place] | [place] | | | | | [address] | [address] | | | | | [phone] | [phone] | | | | | | | [...] time. You have an dolly ointment at [facility] tomorrow to teach you how to give [...] Hydrocortisone. Ask your doctor about taking an szhp-arm-qzzwoxx stool softener. Consider Experts recommend that women [...] may help to think about your personal, tenriism, and fami ly traditions. You get to [...] log into your My Chart account at [email or web address]. You can enter X711 in the "Health Library" [facility] box. Not on [employer]? Review the MyChart section of your After Visit Summary for directions on ho w to sign up. Current as of: February 18, 2018 Content Version: 11.9 2115-5024 [employer]. Care instructions adapted under license by [employer]. If you have questions about a medical condition or this instr uction, always ask your healthcare professional. [employer] disclaims any frederic anty or liability for your use of this information. documented in this encounter Progress Notes Jaz Erazo, KATHY - 05/28/2018 3:15 PM PSTNST: 23 y.o. at 32w1d weeks [facility]. Indications for monitoring: GDM on metformin - patient will be transitioning to ins ulin. Pt states will not be able to keep GDM review/insulin teaching with RD at [facility] on Friday or M . Per Dr. Luke patient should plan to continue metformin use, last picker insulin o alicia the weekend and [...]
--- OUTSIDE RECORDS SUMMARY | ~2019-05-12 | XMS | Encounter Summary ---
Demographics + + + | Address | [address] | | | [place] [address] | + + + | Home Phone | | + + + | Preferred Language | Unknown | + + + | Marital Status | Single | + + + | Rastafarian Affiliation | NRP | + + + | Race | White | + + + | Ethnic Group | Not or | + + + Author + + + | Author | [facility] | + + + | Organization | [facility] | + + + | Address | Unknown | + + + | Phone | Unavailable | + + + Support + + + + + | Name | Relationship | Address | Phone | + + + + + | Anderson Rose | ECON | [address] | | | [place] | | [place] [address] | | + + + + + | Gracie Turcios | ECON | [place] | | + + + + + Care Team Providers + +------+ + | Care Peoplesoft Taleo Manager Name | Role | Phone | + +------+ + | Anisha Rivera | PCP | | + +------+ + Reason for Visit + + + | Reason | Comments | + + + | Establish care | | + + + Encounter Details +--------+---------+ + + + | Date | Type | Department | Care Team | Description | +--------+---------+ + + + | 10/01/ | Office | [facility] | Anisha Rivera, | Atopic dermatitis, | | 2016 | Visit | Medicine [address] | TECHNICAL SERVICE REPRESENTATIVE [address] | unspecified type | | | | [address] [place], | [place], [place] | (Primary Dx); | | | | [place] [address] | [address] | Establishing care | | | | [phone] | [phone] | with new doctor, | | | | | | encounter for | +--------+---------+ + + + Social History [...] + + + | Blood Pressure | 118/84 | 10/02/2015 1:55 PM | | | | | PDT | | + + + + + | Pulse | 85 | 10/02/2015 1:55 PM | | | | | PDT | | + + + + + | Temperature | 36.4 C (97.6 F) | 10/02/2015 1:55 PM | | | | | PDT | | + + + + + | Respiratory Rate | - | - | | + + + + + | Oxygen Saturation | 99% | 10/02/2015 1:55 PM | | | | | PDT | | + + + + + | Inhaled Oxygen | - | - | | | Concentration | | | | + + + + + | Weight | 93.4 kg (206 lb) | 10/02/2015 1:55 PM | | | | | PDT | | + + + + + | Height | 154.9 cm (5' 1") | 10/02/2015 1:55 PM | | | | | PDT | | + + + + + | Body Mass Index | 38.92 | 10/02/2015 1:55 PM | | | | | PDT | | + + + + + documented in this encounter Patient Instructions Patient Instructions Anisha Sierra FNP - 10/02/2015 2:34 PM PDT A summary of our discussion today, and directions for next steps are listed below 1. Thank you for coming in today 2. Please start using the steroid ointment twice a day for the next two weeks. If it does n ot improve please return to clinic 3. Follow-up with me at your convenience to discuss control. It was a pleasure to see you in the office today. If you have any questions or concerns, an on-call provider for this office can be reached 24 hours per day, 7 days per week at [phone] or you can reach me directly via [employer] at [email or web address]. Anisha GIBSON Instructor [facility] Department of Family Medicine [facility] Family Medicine P: [phone] F: [phone] Atopic Dermatitis: Care Instructions Your Care Instructions Atopic dermatitis (also called eczema) is a skin problem that causes intense itching and a red, raised rash. In severe cases, the rash develops clear fluid filled blisters. The rash is not contagious. People with this condition seem to have very sensitive immune systems th at are likely to react to things that cause allergies. The immune system is the body's way o f fighting infection. There is no cure for atopic dermatitis, but you can control it with care at home. Follow-up care is a emerson part of your treatment and safety. Be sure to make and go to all ap pointments, and call your doctor if you are having problems. It s also a good idea to know your test results and keep a list of the medicines you take. How can you care for yourself at home? If your doctor prescribes a cream, use it as directed. If your doctor prescribes other m edicine, take it exactly as directed. Wash the affected area with water only. Soap can make dryness and itching worse. Pat dry . Apply a moisturizer after bathing. Use a cream such as Lubriderm, Moisturel, or Cetaphil that does not irritate the skin or cause a rash. Apply the cream while your skin is still d amp after lightly drying with a towel. Use cold, wet cloths to reduce itching. Keep cool, and stay out of the sun. Leave the rash open to the air. If itching affects your normal activities, an lesw-tqb-avqczli antihistamine, such as di phenhydramine (Benadryl) or loratadine (Claritin) may help. Read and follow all instructions on the label. When should you call for help? Call your doctor now or seek immediate medical care if: Your rash gets worse and you have a fever. You have new blisters or bruises, or the rash spreads and looks like a sunburn. You have signs of infection, such as: Increased pain, swelling, warmth, or redness. Red streaks leading from the rash. Pus draining from the rash. A fever. You have crusting or oozing sores. You have joint aches or body aches along with your rash. Watch closely for changes in your health, and be sure to contact your doctor if: Your rash does not clear up after 2 to 3 weeks of home treatment. Itching interferes with your sleep or daily activities. Where can you learn more? To learn more about "Atopic Dermatitis: Care Instructions", log into your [employer] account a t [email or web address]. You can enter I585 in the Health Library" search box. Not on Igneous Systemshart? Review the MyChart section of your After Visit Summary for directions on ho w to sign up. [id number] [employer]. Care instructions adapted under license by [facility] [employer]. This care instruction is for use with your licensed healthcar e professional. If you have questions about a medical condition or this instruction, always ask your healthcare professional. [employer] disclaims any warranty or liabili ty for your use of this information. Content Version: 10.8.768994; Current as of: August 05, 2014 documented in this encounter Progress Notes Anisha Sierra FNP - 10/02/2015 2:02 PM PDTFormatting of this note might be differe nt from the original. Family Medicine Establish Care Visit Date of Service: 10/02/2015, 2:02 PM Author: ARTHUR Warren Providers Involved in Care of Patient: ARTHUR WARREN Chief Complaint: HPI: Ms. Turcios is a new patient here to establish care. She complains of a rash under her armpits for a few years. She has tried OTC eczema medicat ions without any success, as well as changing deodorants. She uses sensitive skin products. Does not apply lotion to the area. Had eczema as a child. It will come and go. It is prurit ic and burning. No rashes anywhere else. 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 milo is single and does not have any children. She is a nonsmoker. Sexually active with males, nut currently using any BC, has used OCPs in the past and did n ot like SE's. Agreeable to discuss BC options at a future visit. She is trying to exercise more, states she is out of shape for fire fighting. Exercises in the form of walking. Family History Problem Relation Diabetes Paternal Grandfather Diabetes Maternal Grandfather Cancer Maternal Aunt Cancer Maternal Uncle Thyroid Maternal Grandmother Thyroid Maternal Grandfather Social history includes: History Social History Marital Status: Single Spouse Name: N/A Number of Children: N/A Years of Education: N/A Occupational History Not on file. Social History Main Topics Smoking status: Never Smoker Smokeless tobacco: Not on file Alcohol Use: No Drug Use: No Sexual Activity: Partners: Male Other Topics Concern Not on file Social History Narrative No narrative on file Medical history includes: Seasonal allergies Eczema Comment: As a child, bilateral UE Allergies: No Known Allergies Medications: Current outpatient prescriptions: triamcinolone acetonide 0.1 % topical ointment, Apply to affected area two times daily. Apply thin film to affected areas., Disp: 80 g, Rfl: 1 ROS: Review of Systems Constitutional: Negative for fever, chills, weight loss and malaise/fatigue. HENT: Negative for congestion and sore throat. Respiratory: Negative for cough and shortness of breath. Cardiovascular: Negative for chest pain. Gastrointestinal: Negative for nausea, vomiting and abdominal pain. Genitourinary: Negative for dysuria. Musculoskeletal: Negative for myalgias. Skin: Positive for rash. Neurological: Negative for dizziness and loss of consciousness. Physical Exam: BP 118/84 | Pulse 85 | Temp (Src) 36.4 C (97.6 F) (Oral) | Ht 1.549 m (5' 1") | Wt 93.4 41 kg (206 lb) | SpO2 99% | LMP 10/01/2015 | BMI 38.94 kg/(m^2) Physical Exam Constitutional: She is oriented to person, place, and time and well-developed, well-nourish ed, and in no distress. No distress. HENT: Head: Normocephalic. Right Ear: External ear normal. Left Ear: External ear normal. Nose: Nose normal. Mouth/Throat: Oropharynx is clear and moist. Eyes: Conjunctivae are normal. Neck: Normal range of motion. Neck supple. Cardiovascular: Normal rate, regular rhythm and normal heart sounds. Pulmonary/Chest: Effort normal and breath sounds normal. Abdominal: Soft. Bowel sounds are normal. There is no tenderness. There is no guarding. Musculoskeletal: Normal range of motion. Lymphadenopathy: She has no cervical adenopathy. Neurological: She is alert and oriented to person, place, and time. Skin: Skin is warm. Rash noted. Bilateral axilla: erythematous plaque approximately 8 x 8 cm, no scaling, vesicles or centr al clearing. Psychiatric: Mood and affect normal. Assessment and Plan: (L20.9) Atopic dermatitis, unspecified type (primary encounter diagnosis) Plan: Triamcinolone prescribed, BID applications, RTC if no improvement to area. Skin appea rs eczematous and is consistent with prior history. Possibly yeast component although does n ot display these characteristics. Educated regarding eczema and maintenance skin care/ moist urizing. (Z71.89) Establishing care with new doctor, encounter for Plan: *RTC to discuss BC options. Continue and increase daily exercise. Anisha GIBSON Instructor [facility] P: [phone] F: [phone] Email: [email or web address] Dolly Thacker MA - 10/02/2015 1:47 PM PDT Elizabet Turcios is a 20 y.o. female who is in clinic today alone. Pt is here toda y for establish care and eczema. Pt stated she is been trying all different kinds of cream f or eczema it's not working she stated she had it for 4 years on both armpits. Chief Complaint Patient presents with Establish care documented in this enco unter Plan of Treatment Not on filedocumented as of this encounter Visit Diagnoses + + | Diagnosis | + + | Atopic dermatitis, unspecified type - Primary | + + | Establishing care with new doctor, encounter for | + + documented in this encounter
--- OUTSIDE RECORDS SUMMARY | ~2019-05-12 | XMS | Encounter Summary ---
Demographics + + + | Address | [address] | | | [place] [address] | + + + | Home Phone | | + + + | Preferred Language | Unknown | + + + | Marital Status | Single | + + + | Cheondoism Affiliation | NRP | + + + [...] | | [place] | | [place] [address] | | + + + + + | Gracie Turcios | ECON | [place] | | + + + + + Care Team Providers + +------+ + | Care Instant Powder Supervisor Name | Role | Phone | [...] + + + | 06/25/ | | [place] | | monitoring | | 2019 | | [facility] [address] | | | | | | [address] [facility] | | | | | | [address] [place], [place] | | | | | | [address] | | | | | | [phone] | | | +--------+ + + + [...] encounter Progress Notes Jaz Erazo, KATHY - 06/25/2018 3:00 PM PSTNST: 23 y.o. at 36w1d weeks [facility]. Indications for monitoring: GDM on insulin, BMI 44, Velamentous cord, Polyhydramnio s FHT: Baseline FHR 130, moderate variability, 15 x 15 accelerations, and no decelerations. TOCO: Three contractions noted in 26 minutes, rated at 6/10 on pain scale by patient. Repo rts her stomach feels like a rock and is painful. Denies menstrual type or low abdominal cr amping. VS WNL at visit earlier today, not repeated. Strip reviewed by Dr. Luke. Next appointment 07/02/18 for routine ob care and NST. documented in th is encounter Plan of Treatment Not on filedocumented as of this encounter Procedures + +--------+ + + + | Procedure Name | Priori | Date/Time | Associated Diagnosis | Comments | | | ty | | | | + +--------+ + + + | NST | Routin | 06/25/2018 | Gestational | Results for this | [...] + documented in this encounter Results NST (06/25/2018) + + + + + [...]
--- OUTSIDE RECORDS SUMMARY | ~2019-05-12 | XMS | Encounter Summary ---
Demographics + + + | Address | [address] | | | [place] [address] | + + + | Home Phone | | + + + | Preferred Language | Unknown | + + + | Marital Status | Single | + + + | Mormonism Affiliation | NRP | + + + | Race | White | + + + | Ethnic Group | Not or | + + + Author + + + | Author | [facility] | + + + | Organization | [facility] | + + + | Address | Unknown | + + + | Phone | Unavailable | + + + Support + + + + + | Name | Relationship | Address | Phone | + + + + + | Anderson Rose | ECON | [address] | | | [place] | | [place] [address] | | + + + + + | Gracie Turcios | ECON | [place] | | + + + + + Care Team Providers + +------+ + | Care Photogrammetry Airplane Pilot Name | Role | Phone | [...] + + | 01/06/ | Telephone | [place] | Natasha Jones, | Lab Results | | 2017 | | [facility] [place] [address] | [address] | | | | | [address] [place], [place] | | | | | [address] [place], [place] | [address] | | | | | [address] | [phone] | | | | | [phone] | | | +--------+ + + + [...] | + + + + + | [facility] | And | [place] [address] | [phone] | | MEDICAL CENTER | Streets | | | + + + + + GLUCOSE TOLERANCE TEST, 1 HOUR (01/07/2018 3:52 PM PDT) + +---------+ + + + | Component | Value | Ref Range | Performed | Pathologist | | | | | At | Signature | + +---------+ + + + | 1 HOUR | 183 (H) | <130 mg/dL | [facility] | | | GLUCOSE - [...] for the diagnosis of gestational diabetes | [facility] | | only. | MEDICAL CENTER | + + + + + + + + | Performing | Address | City/State/Zipcode | Phone Number | | Organization | | | | + + + + + | [facility] | [place] | [place] [address] | [phone] | | [facility] | Streets | | | + + + + + documented in this encounter Visit Diagnoses + + | Diagnosis | + + | Elevated hemoglobin A1c - Primary Other abnormal blood chemistry | + + | BMI 40.0-44.9, adult (HCC) Body Mass Index 40.0-44.9, adult | + + documented in this encounter"
--- OUTSIDE RECORDS SUMMARY | ~2019-05-12 | XMS | Encounter Summary ---
Demographics + + + | Address | [address] | | | [place] [address] | + + + | Home Phone [...] Author + + + | Author | [facility] | + + + | Organization | [facility] | + + + | Address | Unknown | + + + | Phone | Unavailable | + + + Support + + + + + | Name | Relationship | Address | Phone | + + + + + | Anderson Rose | ECON | [address] | | | [place] | | [place] [address] | | + + + + + | Gracie Turcios | ECON | [place] | | + + + + + Care Team Providers + +------+ + | Care Metal Numerical Control Programmer Name | Role | Phone | [...] | +--------+ + + + + | 06/15/ | | [place] | | monitoring | | 2018 | | [facility] [address] | | | | | | [address] [facility] | | | | | | [address] [place], [place] | | | | | | [address] | | | | | | [phone] | | | +--------+ + + + [...] + + + | Blood Pressure | 113/73 | 06/15/2018 8:28 AM | | | | | PST [...] Weight | 120.7 kg (266 lb) | 06/15/2018 8:28 AM | | | | | PST | | + + + + + | Height | - | - | | + + + + + | Body Mass Index | 48.64 | 03/16/2018 3:13 PM | | | | | PDT | | + + + + + documented in this encounter Progress Notes Jordan Gonsalves RN - 06/15/2018 8:00 AM PSTNST: 23 y.o. at 34w5d weeks gesta tion. Indications for monitoring: GDM/insulin 12 units at bedtime, BMI 44, velamentous cord, polyhydramnios FHT: Baseline FHR 125 , moderate variability, 15 x 15 accelerations, and no decelerations. TOCO: Two contractions noted in 40 minutes, rated at 7/10 on pain scale by patient. Pt sta janny the pain is located at the top of her stomach. Strip reviewed by Royal Lopez MD. Next appointment 06/18 for JUANI, NST at OB Dept. Pt felt that she did not think she could change her diet any further in the evenings so Dr. Lopez started pt on 6 units NPH in the morning to help with evening elevated sugars. Pt to continue 12 units at bedtime. Pt states understanding of this change. Pt reports painful con tractions. She states they occurred yesterday as well but were about 30 minutes apart. Pt newman d two today during monitoring. They were about 20 minutes apart. Advised pt to record/time c ontractions today and if they continue to be consistent and 20 minutes apart or less she vishal uld call the nurse or go in to the OB department for evaluation. Pt agrees. documented in this encounter Plan of Treatment Not on filedocumented as of this encounter Procedures + +--------+ + + + | Procedure Name | Priori | Date/Time | Associated Diagnosis | Comments | | | ty | | | | + +--------+ + + + | NST | Routin | 06/15/2018 | Gestational | Results for this | [...] + documented in this encounter Results NST (06/15/2018) + + + + + [...] in second trimester | + + | Gestational diabetes mellitus (GDM) in second trimester controlled on oral | | hypoglycemic drug | + + | High-risk in third trimester | + + documented in this encounter"
--- OUTSIDE RECORDS SUMMARY | ~2019-05-12 | XMS | Encounter Summary ---
Demographics + + + | Address | [address] | | | [place] [address] | + + + | Home Phone [...] | | [place] | | [place] [address] | | + + + + + | Gracie Turcios | ECON | [place] | | + + + + + Care Team Providers + +------+ + | Care Marker Machine Name | Role | Phone | + +------+ + | Anisha Rivera | PCP | | + +------+ + Encounter Details +--------+------+ + + + | Date | Type | Department | Care Team | Description | +--------+------+ + + + | 02/04/ | Lab | Laboratory at | | High-risk | | 2017 | | [facility] | | in first trimester | | | | Center [address] | | | | | | [place] | | | | | | [address] | | | +--------+------+ + + + [...] | + +--------+ + + + | SEQUENTIAL SCREEN: | Routin | 02/04/2018 | High-risk | Results for this | | 2ND TRIMESTER, SERUM | e | 8:03 AM | in [...] RESULT | See scanned report | | [facility] | | | | | | A MEDICAL | | | | | | CENTER | | + + + + + + + + | Specimen | + + | Blood - Blood | | (substance) | + + + + + | Narrative | Performed At | + + + | | [facility] | | Test performed by: | [facility] | | [facility] | | | [address] | | | [place] [address] | | + + + + + + + + | Performing | Address | City/State/Zipcode | Phone Number | | Organization | | | | + + + + + | [facility] | | [place] [address] | [phone] | | [facility] | Streets | | | + + + + + documented in this encounter Visit Diagnoses + + | Diagnosis | + + | High-risk in first trimester | + + documented in this encounter"
--- OUTSIDE RECORDS SUMMARY | ~2019-05-12 | XMS | Encounter Summary ---
Demographics + + + | Address | [address] | | | [place] [address] | + + + | Home Phone [...] Author + + + | Author | [facility] | + + + | Organization | [facility] | + + + | Address | Unknown | + + + | Phone | Unavailable | + + + Support + + + + + | Name | Relationship | Address | Phone | + + + + + | Anderson Rose | ECON | [address] | | | [place] | | [place] [address] | | + + + + + | Gracie Turcios | ECON | [place] | | + + + + + Care Team Providers + +------+ + | Care Composing Room Machinist Apprentice Name | Role | Phone | + +------+ + | Anisha Rivera | PCP | | + +------+ + Reason for Visit +--------+ + | Reason | Comments | +--------+ + | COLD | | +--------+ + Encounter Details +--------+ + + + + | Date | Type | Department | Care Team | Description | +--------+ + + + + | 12/05/ | Telephone | [place] | Ti, | COLD | | 2017 | | [facility] [address] | MD [address] | | | | [address] | | | | [address] [place], [place] | [place], [place] | | | | | [address] | [address] | | | | | [phone] | [phone] | | | | | | | [...]
--- OUTSIDE RECORDS SUMMARY | ~2019-05-12 | XMS | Encounter Summary ---
Demographics + + + | Address | [address] | | | [place] [address] | + + + | Home Phone [...] | | [place] | | [place] [address] | | + + + + + | Gracie Turcios | ECON | [place] | | + + + + + Care Team Providers + +------+ + | Care Master Pilot Name | Role | Phone | [...] + + | 07/09/ | PreAdmit | [place] | Natasha Jones, | Pre-Admission | | 2019 | Orders | [facility] [place] [address] | [address] | | | | | [address] [place], [place] | | | | | [address] [place], [place] | [address] | | | | | [address] | [phone] | | | | | [phone] | | | +--------+ + + + [...]
--- OUTSIDE RECORDS SUMMARY | ~2019-05-12 | XMS | Encounter Summary ---
Demographics + + + | Address | [address] | | | [place] [address] | + + + | Home Phone | | + + + | Preferred Language | Unknown | + + + | Marital Status | Single | + + + | Gnosticist Affiliation | NRP | + + + | Race | White | + + + | Ethnic Group | Not or | + + + Author + + + | Author | [facility] | + + + | Organization | [facility] | + + + | Address | Unknown | + + + | Phone | Unavailable | + + + Support + + + + + | Name | Relationship | Address | Phone | + + + + + | Anderson Rose | ECON | [address] | | | [place] | | [place] [address] | | + + + + + | Gracei Bullock | ECON | [place] | | + + + + + Care Team Providers + +------+ + | Care Convict Guard Name | Role | Phone | + +------+ + | Anisha Rivera | PCP | | + +------+ + Encounter Details +--------+ + + + + | Date | Type | Department | Care Team | Description | +--------+ + + + + | 03/13/ | Outside | [facility] | [facility], | | | 2018 | Referral | Department | [facility] | | | | Order | | [facility] | | | | | | [address] | | | | | | [address] | | | | | | [address] [place], | | | | | | [place] [address] | | | | | | [phone] | | | | | | | [...] on filedocumented as of this encounter Results US UTERUS FOLLOW-UP SCAN (03/16/2018 2:51 PM PDT) + + | Specimen | + + | | + + + + + | Narrative | Performed At | + + + | [facility] | [facility] | | OBSTETRICAL ULTRASOUND REPORT | RADIOLOGY OB US | | | | | Pat. Name: FRANK BULLOCK Pat. No: [id number] | | | Study Date: 03/16/2018 1:45pm , Age: 13 1995, 22 | | | Pregnancies: 2, Para 0010 LMP: Unknown GA by | | | Last: 21w5d GA Selected: 21w5d (From ) ADELINE: | | | 07/22/2018 Referring MD: FIORELLA RENO Teasel Gig Operator: DESTINI, | | | SARA LOPEZ [facility] CPT4: 19276 Hist/Ind: | | | Incomplete anatomy scan, [...] | | | ! x ! Cardiac [place]/! ! ! | | | ! x [...] ask | | | for the perinatologist instructional systems specialist. [phone] or [phone] | | | MILTON DE LA CRUZ [...] | REPORT Pat. Name: | | FRANK BULLOCK Gee. No: [id number] Date: 03/16/2018 1:45pmDOB, | | Age: 13 1995, 22Pregnancies: 2, Para 0010LMP: UnknownGA by | | Last: Selected: wd (From )ADELINE: 07/22/2018Referring MD: | | Sissy RENOographer: JESSICA GEORGES BS [facility] [[email or web address]] RVTCPT4: [id number]/Ind: | | Incomplete anatomy scan, possible | | micronathia | | Heart Rate: 147 | | bpm | | EVAL, PLACENTAPresentation: CephalicPlacenta: AnteriorCord Insert: Velamentous | | insertionFetal Heart Rate: 147 bpmAmniotic [...] ! ! ! x | | !Cardiac [place]/! ! ! ! x !Four Chamber ! [...] and ask for the | | perinatologist instructional systems specialist. [phone] or [phone], ROYA, | | <Electronic Signature> 03/16/2018 04:00pmI [...] ask for the perinatologist on | |call. [phone] or [phone] | |MILTON DE LA CRUZ MD | [...]
--- OUTSIDE RECORDS SUMMARY | ~2019-05-12 | XMS | Encounter Summary ---
Demographics + + + | Address | [address] | | | [place] [address] | + + + | Home Phone [...] Author + + + | Author | [facility] | + + + | Organization | [facility] | + + + | Address | Unknown | + + + | Phone | Unavailable | + + + Support + + + + + | Name | Relationship | Address | Phone | + + + + + | Anderson Rose | ECON | [address] | | | [place] | | [place] [address] | | + + + + + | Gracie Bullock | ECON | [place] | | + + + + + Care Team Providers + +------+ + | Care Meat Stringer Name | Role | Phone | + [...] | | | Mailcode: PV450 | [facility], [place] | | | | | Physician's Saji | [address] | | | | | [facility] [place] | [phone] | | | | | [address] | | | | | | [phone] | | | +--------+ + + + [...] Performed At | + + + | [facility] | [facility] | | OBSTETRICAL ULTRASOUND REPORT | RADIOLOGY OB US | | | | | Pat. Name: FRANK BULLOCK Pat. No: [id number] | | | Study Date: 01/07/2018 8:13am , Age: 13 1995, 22 | | | Pregnancies: 2, Para 0010 LMP: Unknown GA by | | | US: 12w2d GA Selected: 12w0d (From Known E) ADELINE: | | | 07/22/2018 Referring MD: HEATH VALENZUELA Airline Reservationist: | | | DEJA FIERRO, FREDY CPT4: [id number] Hist/Ind: | | | Sequential screen Obesity | | | | | | MEASUREMENTS & AGE GROWTH EVALUATION | | | Measurement GA Range Srce %for GA Ratios | | | ----- ---- ------- CRL 5.7 | | | cm 12w2d (47k0e-87s1e) Hadl CRL 60% GA for sonogram 12w2d | | | (93g0o-31x5f) based on (CRL) Avg Markers | | [...] any time and ask for the perinatologist motion picture projectionist apprentice. [phone] | | | or [phone] KATI LAWSON MD | | | <Electronic Signature> 01/07/2018 09:44am I have personally | | | reviewed the images and, if necessary, edited the report. I agree | | | with the report as now presented. | | + + + + + | Procedure Note | + + | Service Account, Radiant Res In Interface - 01/07/2018 9:46 AM PDT | | [facility] OBSTETRICAL ULTRASOUND | | REPORT Pat. Name: | | FRANK BULLOCK. No: [id number] Date: 01/07/2018 8:13amDOB, | | Age: 13 1995, 22Pregnancies: 2, Para 0010LMP: UnknownGA by US: | | 40g6tCO Selected: 12w0d (From Known E)ADELINE: 07/22/2018Referring MD: | | NICOLAS ANALENESonographer: DEJA FIERRO, RDMSCPT4: [id number]/Ind: | | Sequential screen | | Obesity MEASUREMENT | | S & AGE GROWTH EVALUATIONMeasurement GA Range Srce | | %for GA Ratios ----- ---- ------- CRL | | 5.7 cm 12w2d (22a3q-15b5k) Hadl CRL 60%GA for sonogram 12w2d (90c3y-45t8v)based on | | (CRL) Avg Markers for [...] any time and ask for the perinatologist motion picture projectionist apprentice. [phone] or | | [phone] LAWSON MD <Electronic Signature> 01/07/2018 | | [...] ask for the perinatologist on | |call. [phone] or [phone] | |KATI LAWSON MD | | | [...]
--- OUTSIDE RECORDS SUMMARY | ~2019-05-12 | XMS | Encounter Summary ---
Demographics + + + | Address | [address] | | | [place] [address] | + + + | Home Phone [...] Author + + + | Author | [facility] | + + + | Organization | [facility] | + + + | Address | Unknown | + + + | Phone | Unavailable | + + + Support + + + + + | Name | Relationship | Address | Phone | + + + + + | Anderson Rose | ECON | [address] | | | [place] | | [place] [address] | | + + + + + | Gracie Turcios | ECON | [place] | | + + + + + Care Team Providers + +------+ + | Care Software Asset Management Analyst Name | Role | Phone | [...] + + | 01/08/ | Telephone | [place] | Natasha Jones, | Lab Results (GTT) | | 2018 | | [facility] | MD [address], | | | | | [address] [place], [place] | | | | | [address] [place], [place] | [address] | | | | | [address] | [phone] | | | | | [phone] | | | +--------+ + + + [...]
--- OUTSIDE RECORDS SUMMARY | ~2019-05-12 | XMS | Encounter Summary ---
Demographics + + + | Address | [address] | | | [place] [address] | + + + | Home Phone | | + + + | Preferred Language | Unknown | + + + | Marital Status | Single | + + + | Scientologist Affiliation | NRP | + + + [...] | | [place] | | [place] [address] | | + + + + + | Gracie Turcios | ECON | [place] | | + + + + + Care Team Providers + +------+ + | Care Drill Operator Automatic Name | Role | Phone | + [...] + + + | 01/07/ | | [place] | | Obstetric US Scan | | 2018 | | [facility] [address] | | (NT) | | | | E [facility] | | | | | | [address] [place], [place] | | | | | | [address] | | | | | | [phone] | | | +--------+ + + + [...] RESULT | See scanned report | | [facility] | | | | | | A MEDICAL | | | | | | CENTER | | + + + + + + + + | Specimen | + + | Blood - Blood | | (substance) | + + + + + | Narrative | Performed At | + + + | | [facility] | | Test performed by: | [facility] | | [facility] | | | [address] | | | [place] [address] | | + + + + + + + + | Performing | Address | City/State/Zipcode | Phone Number | | Organization | | | | + + + + + | [facility] | [address] | [place] [address] | [phone] | | [facility] | Streets | | | [...] | [facility] | | | [address] | | | [place] [address] | | + + + + + + + + | Performing | Address | City/State/Zipcode | Phone Number | | Organization | | | | + + + + + | [facility] | | | | + [...] + + | Ultrasound exam performed at [facility] and will | [facility] | | be read/resulted at [facility]. | DEPARTMENT OF | | | [...]
--- OUTSIDE RECORDS SUMMARY | ~2019-05-12 | XMS | Encounter Summary ---
Demographics + + + | Address | [address] | | | [place] [address] | + + + | Home Phone | | + + + | Preferred Language | Unknown | + + + | Marital Status | Single | + + + | Confucianism Affiliation | NRP | + + + [...] | | [place] | | [place] [address] | | + + + + + | Gracie Turcios | ECON | [place] | | + + + + + Care Team Providers + +------+ + | Care Screener Perfumer Name | Role | Phone | + +------+ + | Anisha Rivera | PCP | | + +------+ + Reason for Visit + + + | Reason | Comments | + + + | Follow-up visit | Pt is here today for a 1 month follow up on DM and depression. Pt | | | said things have been going a little better from last time. | + + + Encounter Details +--------+---------+ + + + | Date | Type | Department | Care Team | Description | +--------+---------+ + + + | 12/22/ | Office | [facility] | Anisha Rivera, | Prediabetes (Primary | | 2019 | Visit | Medicine [address] | STRATEGIC COMMUNICATIONS SPECIALIST [address] | Dx); | | | | [address] [place], | [place], [place] | depression; | | | | [place] [address] | [address] | control counseling | | | | [phone] | [phone] | | | | | | | [...] + + + | Blood Pressure | 110/80 | 12/22/2018 1:53 PM | | | | | PDT | | + + + + + | Pulse | 106 | 12/22/2018 1:53 PM | | | | | PDT | | + + + + + | Temperature | 37 C (98.6 F) | 12/22/2018 1:53 PM | | | | | PDT | | + + + + + | Respiratory Rate | - | - | | + + + + + | Oxygen Saturation | 99% | 12/22/2018 1:53 PM | | | | | PDT | | + + + + + | Inhaled Oxygen | - | - | | | Concentration | | | | + + + + + | Weight | 115.7 kg (255 lb) | 12/22/2018 1:53 PM | | | | | PDT | | + + + + + | Height | - | - | | + + + + + | Body Mass Index | 46.64 | 10/27/2018 7:55 AM | | | | | PDT | | + + + + + documented in this encounter Patient Instructions Patient Instructions Anisha Rivera, STRATEGIC COMMUNICATIONS SPECIALIST - 12/22/2018 2:00 PM PDTFormatting of this not e might be different from the original. Start control pill on the first day of your next menstrual cycle Take consistently Follow-up in 3 months or sooner if you have any issues with this. Combination Control Pills: Care Instructions Your Care [...] soon as you remember you forgot them. Jewel cordero read the pill label or call your doctor about instructions on how to take your missed pi lls. Use a backup method of control or don't have intercourse for 7 days. is more likely if you miss more than 1 pill. If you had intercourse, you can use emergency contraception to help prevent . Jewel luna most effective emergency contraception is the copper IUD (inserted by a doctor). You can also get emergency contraceptive pills without a prescription at most drugstores. What else do you need to know? The pill can have side effects. ? You may have very light or skipped periods. ? You may have bleeding between periods (spotting). This usually decreases after 3 to 4 mon ths. ? You may have mood changes, less interest in sex, or weight gain. The pill may reduce acne, heavy bleeding and cramping, and symptoms of premenstrual synd nasim. Check with your doctor before you use any other medicines, including blqv-muw-jwhnyor me dicines, vitamins, herbal products, and supplements. [...] signs of a blood clot, such as: ? Pain in your calf, back of the knee, thigh, or groin. ? Redness and swelling in your leg or [...] Control Pills: Care Instructions", log into your [employer] account at [email or web address]. You can enter Z218 in the "Health Library" sear box. Not on MyChart? Review the MyChart section of your After Visit Summary for directions on [place] to sign up. Current as of: February 18, 2018 Content Version: 12.1 4987-1246 [employer]. Care instructions adapted under license by [facility] [place]. If you have questions about a medical condition or this instr uction, always ask your healthcare professional. [employer] disclaims any frederic anty or liability for your use of this information. documented in this encounter Progress Notes Anisha Rivera FNP - 12/22/2018 2:00 PM PDT Family Medicine Follow-Up Note Date of Service: 12/22/18, 1:57 PM Providers Involved in Care of Patient: ARTHUR Waters HPI: Ms. Turcios is here today for a 1 month follow up on DM and depression. Pt said thing s have been going a little better from last time. Patient reports her depression symptoms are improved. Her change in work scheduled has help ed this has she has more a consistent schedule Reports depression symptoms 1x per week at most, and usually triggered by baby screaming wh en she cannot soothe him. When this occurs she will place her son in his bed and leave the r oom and try to find an activity to distract herself like doing the dishes. She has never lef t her son alone crying for more than 15 minutes and always makes sure he is changed and fed before leaving him. She has no thoughts of harming him or herself. She has never shaken the baby. She has a travel agent she can call to help with child life therapist but finances are a concern Doesn't check blood sugars. Reports she only eats one meal a day and snacks throughout the day. She has decreased milk consumption. Has decreased pasta somewhat. Interested in alternate control. Reports the adhesive on the patch doesn't stick. Wondering about the pill. Has been off control x2 months. Due to start next cycle in three days Chronic Problems: Patient Active Problem List Diagnosis High-risk in [...] Negative for chest pain. Gastrointestinal: Negative for abdominal pain, nausea and vomiting. Psychiatric/Behavioral: Positive for depression. Negative for substance abuse and suicidal ideas. Allergies: Allergies Allergen Reactions Peanut Anaphylaxis Avoids [...] new patch, Disp: 3 patch, Rfl: 11 norgestimate-ethinyl estradiol (SPRINTEC) 0.25-35 mg-mcg oral tablet, Take 1 tablet by mout h once daily., Disp: 3 Package, Rfl: 1 Physical Exam: BP 110/80 (BP Location: Left upper arm, Patient Position: Sitting) | Pulse 106 | Temp 37 C (98.6 F) (Oral) | Wt 115.7 kg (255 lb) | SpO2 99% | BMI 46.64 kg/m | BSA 2.25 m Physical Exam Constitutional: She is oriented to person, place, and time and well-developed, well-nourish ed, and in no distress. HENT: Head: Normocephalic. Eyes: Conjunctivae are normal. Neck: Normal range of motion. Pulmonary/Chest: Effort normal. Neurological: She is alert and oriented to person, place, and time. Psychiatric: Mood and affect normal. Laboratory Data: No visits with results within 2 Week(s) from this visit. Latest known visit with results is: Orders Only on 09/28/2018 Component Date Value 2 HR GTT NON-GEST- FASTI* 09/28/2018 93 2 HR GTT NON-GEST- 2 HR * 09/28/2018 168* Assessment and Plan: (R73.03) Prediabetes (primary encounter diagnosis) Comment: Check A1C today. Previously did not tolerate metformin, if in diabetic range consi aaliyah sulfonyurea or insulin Plan: HEMOGLOBIN A1C, BLOOD (F53.0) depression Comment: Improving, 1 or less day per week when depression symptoms present. Safe and appro priate behavior with son. Declines medication and counseling at this time (Z30.09) control counseling Comment: Adhesive patch did not stay adhered, interesting in retrying OCPs, previously stru ggled with taking consistenetly. instructions provided for missed pills. RTC 3 months Anisha GIBSON, DNP [facility] Family Medicine [facility] Family Medicine P: [phone] F: [phone] documented in this encounter Plan of Treatment Not on filedocumented as of this encounter Results HEMOGLOBIN A1C, BLOOD (12/22/2018 2:59 PM PDT) + +-------+ + + + | Component | Value | Ref Range | Performed | Pathologist | | | | | At | Signature | + +-------+ + + + | HEMOGLOBIN | 5.9 | % | [facility] | | | A1C | | | A MEDICAL | | | | | | CENTER | | + +-------+ + + + | ESTIMATED | 123 | mg/dL | [facility] | | | [facility] | | | A MEDICAL | | | GLUCOSE | | | CENTER | | + +-------+ + + + + + | Specimen | + + | Blood - Blood | | (substance) | + + + + + | Narrative | Performed At | + + + | Glycohemoglobin Recommended Diabetic Ranges per DCCT & ADA: | [facility] | | Normal Range: <6% [facility] | | Good Control: <7% | | | Additional action suggested: >8% Non-Diabetic | | | Ranges: 4-6% Doggy Daycare Activities Director's Glycohemoglobin | | | Diabetic Ranges: Normal Range: | | | 4.0-6.0% Good Control: | | | 6.0-8.0% Poor Control: | | | >8.0% | | + + + + + + + + | Performing | Address | City/State/Zipcode | Phone Number | | Organization | | | | + + + + + | [facility] | [place] | [place] [address] | [phone] | | [facility] | Stre[address] | | | + + + + + documented in this encounter Visit Diagnoses + + | Diagnosis | + + | Prediabetes - Primary Other abnormal glucose | + + | depression Mental disorders of mother, complicating , childbirth, | | or the puerperium, unspecified as to episode of care | + + | control counseling General counseling for initiation of other contraceptive | | measures | + + documented in this encounter
--- OUTSIDE RECORDS SUMMARY | ~2019-05-12 | XMS | Encounter Summary ---
Demographics + + + | Address | [address] | | | [place] [address] | + + + | Home Phone | | + + + | Preferred Language | Unknown | + + + | Marital Status | Single | + + + | Yarsanism Affiliation | NRP | + + + | Race | White | + + + | Ethnic Group | Not or | + + + Author + + + | Author | [facility] | + + + | Organization | [facility] | + + + | Address | Unknown | + + + | Phone | Unavailable | + + + Support + + + + + | Name | Relationship | Address | Phone | + + + + + | Anderson Rose | ECON | [address] | | | [place] | | [place] [address] | | + + + + + | Gracie Turcios | ECON | [place] | | + + + + + Care Team Providers + +------+ + | Care Road Test Examiner Name | Role | Phone | + +------+ + | Anisha Rivera | PCP | | + +------+ + Encounter Details +--------+ + + + + | Date | Type | Department | Care Team | Description | +--------+ + + + + | 01/07/ | Hospital | Pathology at | | | | 2018 | Encounter | Medical Office | | | | | | [address] | | | | | | [place], | | | | | | [place] [address] | | | | | | [phone] | | | +--------+ + + + [...]
--- OUTSIDE RECORDS SUMMARY | ~2019-05-12 | XMS | Encounter Summary ---
Demographics + + + | Address | [address] | | | [place] [address] | + + + | Home Phone | | + + + | Preferred Language | Unknown | + + + | Marital Status | Single | + + + | Church Affiliation | NRP | + + + [...] | | [place] | | [place] [address] | | + + + + + | Gracie Turcios | ECON | [place] | | + + + + + Care Team Providers + +------+ + | Care Manager Market Development Name | Role | Phone | + [...] + + + | 04/07/ | | [place] | Kapil Rutherford, | | | 2018 | | [facility] [address] | CNM [address] | | | | | [address] | [address] | | | | | [address] [place], [place] | [place], [place] | | | | | [address] | [address] | | | | | [phone] | [phone] | | | | | | | [...] in premature labor? ? The clinic at [phone] ? Labor and Delivery at [phone] Your Blood Type Do you know your blood type? Do you know if you re Rh Positive or Rh Negative? Ask your doctor or managed care specialist what your blood type is. If you [...] for your baby. Follow-up care is a emerson part of [...] into your My Chart account at [email or web address]. You can enter G264 in the "Health Library" [facility] box. Not on Neighborlandhart? Review the MyChart section of your After Visit Summary for directions on ho w to sign up. Current as of: May 06, 2017 Content Version: 11.7 8276-5671 [employer]. Care instructions adapted under license by [facility] [place]. If you have questions about a medical condition or this instr uction, always ask your healthcare professional. [employer] disclaims any frederic anty or liability for your use of this information. documented in this encounter Progress Notes Kapil Rutherford CNM - 04/07/2018 3:45 PM PDTS: @ 25.1 weeks who presents for [facility] ob visit. She reports very active movement. She has no other concerns. She has been worki ng hard on testing her blood sugars more regularly. Most days she is testing a couple times a day. She attended one targeteer visit but didn't have follow up. She [...] diet changes as well as f/u with targeteer. Will se nd request for f/u visit. [...]
--- OUTSIDE RECORDS SUMMARY | ~2019-05-12 | XMS | Encounter Summary ---
Demographics + + + | Address | [address] | | | [place] [address] | + + + | Home Phone | | + + + | Preferred Language | Unknown | + + + | Marital Status | Single | + + + | Lutheran Affiliation | NRP | + + + [...] | | [place] | | [place] [address] | | + + + + + | Gracie Turcios | ECON | [place] | | + + + + + Care Team Providers + +------+ + | Care Furniture Removalist Name | Role | Phone | + +------+ + | Anisha Rivera | PCP | | + +------+ + Encounter Details +--------+------+ + + + | Date | Type | Department | Care Team | Description | +--------+------+ + + + | 01/05/ | Lab | Laboratory at | | Encounter for | | 2018 | | [facility] | | supervision of high | | | [facility] | | risk in | | | | [place] | | first trimester, | | | | [place], [place] | | antepartum; BMI | | | | [address] | | 40.0-44.9, adult | | | | [phone] | | (HCC) | +--------+------+ + + + Social History [...] | + +--------+ + + + | HIV-1,2 AB/HIV-1 P24 | Routin | 01/05/2018 | Encounter for | Results for this | | AG SCREEN | e | 4:42 PM | supervision of high | procedure are in the | | | | PDT | risk in | results section. | | | | | first trimester, | | | | | | antepartum | | + +--------+ + + + | CBC ONLY | Routin | 01/05/2018 | Encounter for | Results for this | | | e | 4:42 PM | supervision of high | procedure are in the | | | | PDT | risk in | results section. | | | | | first trimester, | | | | | | antepartum | | + +--------+ + + + | TSH W/REFLEX TO FREE | Routin | 01/05/2018 | Encounter for | Results for this | | T4(IF ABNORMAL) | e | 4:42 PM | supervision of high | procedure are in the | | | | PDT | risk in | results section. | | | | | first trimester, | | | | | | antepartum | | + +--------+ + + + | HEPATITIS B SURFACE | Routin | 01/05/2018 | Encounter for | Results for this | | ANTIGEN | e | 4:42 PM | supervision of high | procedure are in the | | | | PDT | risk in | results section. | | | | | first trimester, | | | | | | antepartum | | + +--------+ + + + | CHLAM/GC APTIMA, | Routin | 01/05/2018 | Encounter for | Results for this | | RNA, TMA | e | 4:42 PM | supervision of high | procedure are in the | | | | PDT | risk in | results section. | | | | | first trimester, | | | | | | antepartum | | + +--------+ + + + | CBC (HEMOGRAM ONLY) | Routin | 01/05/2018 | Encounter for | Results for this | | | e | 4:42 PM | supervision of high | procedure are in the | | | | PDT | risk in | results section. | | | | | first trimester, | | | | | | antepartum | | + +--------+ + + + | CULTURE, URINE | Routin | 01/05/2018 | Encounter for | Results for this | | | e | 4:42 PM | supervision of high | procedure are in the | | | | PDT | risk in | results section. | | | | | first trimester, | | | | | | antepartum | | + +--------+ + + + | UA, DIPSTICK W/ | Routin | 01/05/2018 | Encounter for | Results for this | | REFLEX | e | 4:42 PM | supervision of high | procedure are in the | | | | PDT | risk in | results section. | | | | | first trimester, | | | | | | antepartum | | + +--------+ + + + | VARICELLA ZOSTER | Routin | 01/05/2018 | Encounter for | Results for this | | IGG, SERUM | e | 4:42 PM | supervision of high | procedure are in the | | | | PDT | risk in | results section. | | | | | first trimester, | | | | | | antepartum | | + +--------+ + + + | URINE, MICROSCOPIC | Routin | 01/05/2018 | Encounter for | Results for this | | EXAM | e | 4:42 PM | supervision of high | procedure are in the | | | | PDT | risk in | results section. | | | | | first trimester, | | | | | | antepartum | | + +--------+ + + + | RPR SERUM | Routin | 01/05/2018 | Encounter for | Results for this | | | e | 4:42 PM | supervision of high | procedure are in the | | | | PDT | risk in | results section. | | | | | first trimester, | | | | | | antepartum | | + +--------+ + + + | RUBELLA IGG AB, | Routin | 01/05/2018 | Encounter for | Results for this | | SERUM | e | 4:42 PM | supervision of high | procedure are in the | | | | PDT | risk in | results section. | | | | | first trimester, | | | | | | antepartum | | + +--------+ + + + | ANTIBODY SCREEN | Routin | 01/05/2018 | Encounter for | Results for this | | | e | 4:42 PM | supervision of high | procedure are in the | | | | PDT | risk in | results section. | | | | | first trimester, | | | | | | antepartum | | + +--------+ + + + | TYPE AND SCREEN | Routin | 01/05/2018 | Encounter for | Results for this | | | e | 4:42 PM | supervision of high | procedure are in the | | | | PDT | risk in | results section. | | | | | first trimester, | | | | | | antepartum | | + +--------+ + + + | ABO & RH TYPE | Routin | 01/05/2018 | Encounter for | Results for this | | | e | 4:42 PM | supervision of high | procedure are in the | | | | PDT | risk in | results section. | | | | | first trimester, | | | | | | antepartum | | + +--------+ + + + | HEMOGLOBIN A1C, | Routin | 01/05/2018 | BMI 40.0-44.9, | Results for this | | BLOOD | e | 4:42 PM | adult (HCC) | procedure are in the | | | | PDT | Encounter for | results section. | | | | | supervision of high | | | | | | risk in | | | | | | first trimester, | | | | | | antepartum | | + +--------+ + + + | URIC ACID, PLASMA | Routin | 01/05/2018 | BMI 40.0-44.9, | Results for this | | | e | 4:42 PM | adult (HCC) | procedure are in the | | | | PDT | Encounter for | results section. | | | | | supervision of high | | | | | | risk in | | | | | | first trimester, | | | | | | antepartum | | + +--------+ + + + | UREA NITROGEN, | Routin | 01/05/2018 | BMI 40.0-44.9, | Results for this | | PLASMA | e | 4:42 PM | adult (HCC) | procedure are in the | | | | PDT | Encounter for | results section. | | | | | supervision of high | | | | | | risk in | | | | | | first trimester, | | | | | | antepartum | | + +--------+ + + + | PROTEIN, URINE | Routin | 01/05/2018 | BMI 40.0-44.9, | Results for this | | | e | 4:42 PM | adult (HCC) | procedure are in the | | | | PDT | Encounter for | results section. | | | | | supervision of high | | | | | | risk in | | | | | | first trimester, | | | | | | antepartum | | + +--------+ + + + | CREATININE, PLASMA | Routin | 01/05/2018 | BMI 40.0-44.9, | Results for this | | | e | 4:42 PM | adult (HCC) | procedure are in the | | | | PDT | Encounter for | results section. | | | | | supervision of high | | | | | | risk in | | | | | | first trimester, | | | | | | antepartum | | + +--------+ + + + documented in this encounter Results URINE, MICROSCOPIC EXAM (01/05/2018 4:42 PM PDT) + + + + + + | Component | Value | Ref Range | Performed | Pathologist | | | | | At | Signature | + + + + + + | RED CELLS | 0-3 | Neg, 0-3 /hpf | [facility] | | | | | | A MEDICAL | | | | | | CENTER | | + + + + + + | WHITE CELLS | 0-2 | Neg, 0-2, 3-5 | [facility] | | | | | /hpf | A MEDICAL | | | | | | CENTER | | + + + + + + | BACTERIA | 2+ (A) | Negative, Trace | [facility] | | | | | /hpf | A MEDICAL | | | | | | CENTER | | + + + + + + | SQUAMOUS | Many (A) | None /hpf /hpf | [facility] | | | EPITHELIAL | | | A MEDICAL | | | | | | CENTER | | + + + + + + | MUCOUS | Many (A) | None /hpf | [facility] | | | | | | A MEDICAL | | | | | | CENTER | | + + + + + + + + | Specimen | + + | Urine - Urine | | specimen collection, | | clean catch | | (procedure) | + + + + + + + | Performing | Address | City/State/Zipcode | Phone Number | | Organization | | | | + + + + + | [facility] | And | [place] [address] | [phone] | | MEDICAL CENTER | Stre[address] | | | + + + + + CBC ONLY (01/05/2018 4:42 PM PDT) + + + + + + | Component | Value | Ref Range | Performed | Pathologist | | | | | At | Signature | + + + + + + | WBC COUNT | 11.4 (H) | 3.5 - 10.8 K/cu | [facility] | | | | | mm | A MEDICAL | | | | | | CENTER | | + + + + + + | RED CELL | 4.30 | 4.00 - 5.20 | [facility] | | | COUNT | | M/cu mm | A MEDICAL | | | | | | CENTER | | + + + + + + | HEMOGLOBIN | 12.7 | 12.0 - 16.0 | [facility] | | | | | g/dL | A MEDICAL | | | | | | CENTER | | + + + + + + | HEMATOCRIT | 36.7 | 36.0 - 46.0 % | [facility] | | | | | | A MEDICAL | | | | | | CENTER | | + + + + + + | MCV | 85.3 | 80.0 - 96.0 fL | [facility] | | | | | | A MEDICAL | | | | | | CENTER | | + + + + + + | MCH | 29.5 | 28.0 - 34.7 pg | [facility] | | | | | | A MEDICAL | | | | | | CENTER | | + + + + + + | MCHC | 34.6 | 33.0 - 35.5 | [facility] | | | | | g/dL | A MEDICAL | | | | | | CENTER | | + + + + + + | RDW | 14.4 | 11.5 - 15.0 % | [facility] | | | | | | A MEDICAL | | | | | | CENTER | | + + + + + + | PLATELET | 240 | 150 - 400 K/cu | [facility] | | | COUNT | | mm | A MEDICAL | | | | | | CENTER | | + + + + + + | MPV | 9.4 | 7.5 - 11.2 fL | [facility] | | | [...] reflex rules apply to this test. | [facility] | | | MEDICAL CENTER | + + + + + + + + | Performing | Address | City/State/Zipcode | Phone Number | | Organization | | | | + + + + + | [facility] | And | [place] [address] | [phone] | | MEDICAL CENTER | Stre[address] | | | + + + + + PROTEIN, URINE (01/05/2018 4:42 PM PDT) + +-------+ + + + | Component | Value | Ref Range | Performed | Pathologist | | | | | At | Signature | + +-------+ + + + | PROTEIN | 18 | mg/dL | [facility] | | | CONC URINE | | | A MEDICAL | | | | | | CENTER | | + +-------+ + + + | PROTEIN/CRE | 0.06 | <0.16 mg/mg | [facility] | | | ATININE | | | A MEDICAL | | | RATIO | | | CENTER | | + +-------+ + + + + + | Specimen | + + | Urine - Urine | | specimen collection, | | clean catch | | (procedure) | + + + + + + + | Performing | Address | City/State/Zipcode | Phone Number | | Organization | | | | + + + + + | [facility] | And [place] | [place] [address] | [phone] | | MEDICAL CENTER | Stre[address] | | | + + + + + CULTURE, URINE (01/05/2018 4:42 PM PDT) + + + + + + | Component | Value | Ref Range | Performed | Pathologist | | | | | At | Signature | + + + + + + | CULTURE | >100,000 cfu/mL Mixed | | [facility] | | | RESULT | normal urogenital/skin | | A MEDICAL | | | URINE | luis, probable | | CENTER | | | | contaminant(s) | | | | + + + + + + + + | Specimen | + + | Urine - Urine | | specimen collection, | | clean catch | | (procedure) | + + + + + | Narrative | Performed At | + + + | Suggest repeat midstream or catheterized specimen if clinically | [facility] | | indicated. | [facility] | + + + + + + + + | Performing | Address | City/State/Zipcode | Phone Number | | Organization | | | | + + + + + | [facility] | And | [place] [address] | [phone] | | MEDICAL CENTER | Stre[address] | | | + + + + + UA, STEPHANIE W/ REFLEX (01/05/2018 4:42 PM PDT) + + + + + + | Component | Value | Ref Range | Performed | Pathologist | | | | | At | Signature | + + + + + + | COLOR(UR) | Yellow | | [facility] | | | | | | A MEDICAL | | | | | | CENTER | | + + + + + + | APPEARANCE | Mod. Cloudy | | [facility] | | | | | | A MEDICAL | | | | | | CENTER | | + + + + + + | PH (URINE) | 6.0 | 5.0 - 8.5 | [facility] | | | | | | A MEDICAL | | | | | | CENTER | | + + + + + + | PROTEIN, | 1+ (A) | Negative, Trace | [facility] | | | URINE | | | A MEDICAL | | | | | | CENTER | | + + + + + + | GLUCOSE | Negative | Negative | [facility] | | | (URINE) | | | A MEDICAL | | | | | | CENTER | | + + + + + + | KETONES | Trace (A) | Negative | [facility] | | | | | | A MEDICAL | | | | | | CENTER | | + + + + + + | SPECIFIC | 1.030 | 1.005 - 1.030 | [facility] | | | GRAVITY | | | A MEDICAL | | | | | | CENTER | | + + + + + + | BILIRUBIN | Negative | Negative | [facility] | | | | | | A MEDICAL | | | | | | CENTER | | + + + + + + | BLOOD | Negative | Negative | [facility] | | | | | | A MEDICAL | | | | | | CENTER | | + + + + + + | NITRITES | Negative | Negative | [facility] | | | | | | A MEDICAL | | | | | | CENTER | | + + + + + + | LEUKOCYTE | Negative | Negative | [facility] | | | ESTERASE | | | A MEDICAL | | | | | | CENTER | | + + + + + + | UROBILINOGE | Negative | Negative, 1.0 | [facility] | | | N | | mg/dL | A MEDICAL | | | | | | CENTER | | + + + + + + | SOURCE | Clean catch | | [facility] | | | (URINALYSIS | | | A MEDICAL | | | ) | | | CENTER | | + + + + + + + + | Specimen | + + | Urine - Urine | | specimen collection, | | clean catch | | (procedure) | + + + + + + + | Performing | Address | City/State/Zipcode | Phone Number | | Organization | | | | + + + + + | [facility] | [address] | [place] [address] | [phone] | | MEDICAL CENTER | Stre[address] | | | + + + + + CREATININE, PLASMA (01/05/2018 4:42 PM PDT) + +---------+ + + + [...] | | A MEDICAL | | | [place] | | | CENTER | | + [...] the MDRD equation recommended by the | [facility] | | National Kidney Disease Education Program. Estimated GFR | [facility] | | Interpretive Information: <60 mL/min/1.73 sq m | | | Chronic Kidney Disease <15 mL/min/1.73 sq m | | | Kidney Failure Estimated GFR greater that 60 mL/min/1.73 sq m is of | [...] | + + + + + | [facility] | And | [place] [address] | [phone] | | MEDICAL [place] | Streets | | | + + + + + URIC ACID, PLASMA (01/05/2018 4:42 PM PDT) + +-------+ + + + | Component | Value | Ref Range | Performed | Pathologist | | | | | At | Signature | + +-------+ + + + | URIC ACID, | 3.5 | 2.4 - 5.7 mg/dL | [facility] | | | PLASMA | | [...] | + + + + + | [facility] | And | [place] [address] | [phone] | | MEDICAL CENTER | Streets | | | + + + + + UREA NITROGEN, PLASMA (01/05/2018 4:42 PM PDT) + +-------+ + + + | Component | Value | Ref Range | Performed | Pathologist | | | | | At | Signature | + +-------+ + + + | BUN, PLASMA | 7 | 6 - 26 mg/dL | [facility] | | | (LAB) | | [...] | + + + + + | [facility] | [address] | [place] [address] | [phone] | | MEDICAL CENTER | Streets | | | + + + + + HEMOGLOBIN A1C, BLOOD (01/05/2018 4:42 PM PDT) + +-------+ + + + | Component | Value | Ref Range | Performed | Pathologist | | | | | At | Signature | + +-------+ + + + | HEMOGLOBIN | 5.7 | % | [facility] | | | A1C | | | A MEDICAL | | | | | | CENTER | | + +-------+ + + + | ESTIMATED | 117 | mg/dL | [facility] | | | [place] | | | A MEDICAL | | | GLUCOSE | | | CENTER | | + +-------+ + + + + + | Specimen | + + | Blood - Blood | | (substance) | + + + + + | Narrative | Performed At | + + + | Glycohemoglobin Recommended Diabetic Ranges per DCCT & ADA: | [facility] | | Normal Range: <6% [facility] | | Good Control: <7% | | | Additional action suggested: >8% Non-Diabetic | | | Ranges: 4-6% Scheduling Assistant's Glycohemoglobin | | | Diabetic Ranges: Normal Range: | | | 4.0-6.0% Good Control: | | | 6.0-8.0% Poor Control: | | | >8.0% | | + + + + + + + + | Performing | Address | City/State/Zipcode | Phone Number | | Organization | | | | + + + + + | [facility] | And | [place] [address] | [phone] | | [facility] | Streets | | | + + + + + CHLAM/GC APTIMA, RNA, TMA (01/05/2018 4:42 PM PDT) + + + + + + | Component | Value | Ref Range | Performed | Pathologist | | | | | At | Signature | + + + + + + | CHLAMYDIA | NOT DETECTED | NOT DETECTED | [facility] | | | PROBE | | | [facility] | | | | | | - [place] | | + + + + + + | GONOCOCCUS | NOT DETECTED | NOT DETECTED | [facility] | | | PROBE | | | [facility] | | | | | | - [place] | | + + + + + + | COMMENTS | SEE NOTEComment: This | | [facility] | | | | test was performed using | | DIAGNOSTICS | | | | the APTIMA COMBO2 | | - [place] | | | | Assay([employer] | | | | | | The analytical | | | | | | performance | | | | | | characteristics of this | | | | | | assay, when used to test | | | | | | [facility] specimens | | | | | | havebeen determined by | | | | | | [facility]. | | | | + + + + + + + + | Specimen | + + | Urine | + + + + + + + | Performing | Address | City/State/Zipcode | Phone Number | | Organization | | | | + + + + + | [facility] | [address] | [place] [address] | | | - [place] | [address] | | | + + + + + ANTIBODY SCREEN (01/05/2018 4:42 PM PDT) + + + + + [...] + + | [facility] | | [place] [address] | | | | Streets | | | + + + + + ABO & RH TYPE (01/05/2018 4:42 PM PDT) + + + + + [...] + | [facility] | [address] | [place] [address] | | | | Streets | | | + + + + + VARICELLA ZOSTER IGG, SERUM (01/05/2018 4:42 PM PDT) + + + + + + | Component | Value | Ref Range | Performed | Pathologist | | | | | At | Signature | + + + + + + | VARICELLA | [id number]: | index | [facility] | | | ZOSTER IGG | Index | | DIAGNOSTICS | | | | Interpretation | | - [place] | | | | --------- | | | | | | | | | | | | <135.00 | | | | | | Negative - | | | | | | Antibody not detected | | | | | | 135.00 - 164.99 | | | | | | Equivocal > or = | | | | | | 165.00 Positive | | | | | | - Antibody detected | | | | | | A positive result | | | | | | indicates that the | | | | | | patient has | | | | | | antibody to VZV but does | | | | | | not differentiate | | | | | | between an active or | | | | | | past infection. | | | | | | The clinical diagnosis | | | | | | must be interpreted in | | | | | | conjunction with | | | | | | the clinical signs and | | | | | | symptoms of the | | | | | | patient. This assay | | | | | | reliably measures | | | | | | immunity due to | | | | | | previous infection but | | | | | | may not be | | | | | | sensitive enough to | | | | | | detect antibodies | | | | | | induced by | | | | | | vaccination. Thus, a | | | | | | negative result in a | | | | | | vaccinated | | | | | | individual does not | | | | | | necessarily indicate | | | | | | susceptibility to VZV | | | | | | infection. | | | | + + + + + + + + | Specimen | + + | Blood - Blood | | (substance) | + + + + + | Narrative | Performed At | + + + | [facility] performed at [facility] | [facility] | | [address] | DIAGNOSTICS - | | [place] [address] | [place] | | Customer Solutions Representative LISANDRA HUA MD | | + + + + + + + + | Performing | Address | City/State/Zipcode | Phone Number | | Organization | | | | + + + + + | [facility] | [address] | [place] [address] | | | - [place] | [address] | | | + + + + + TSH W/REFLEX TO FREE T4(IF ABNORMAL) (01/05/2018 4:42 PM PDT) + +-------+ + + + | Component | Value | Ref Range | Performed | Pathologist | | | | | At | Signature | + +-------+ + + + | TSH | 2.21 | 0.34 - 5.60 | [facility] | | | | | uIU/mL | A MEDICAL | | | | [...] + + | [facility] | [address] | [place] [address] | [phone] | | MEDICAL CENTER | Streets | | | + + + + + RUBELLA IGG AB, SERUM (01/05/2018 4:42 PM PDT) + +-------+ + + + | Component | Value | Ref Range | Performed | Pathologist | | | | | At | Signature | + +-------+ + + + | RUBELLA IGG | 42 | IU/mL | [facility] | | | AB | | | A MEDICAL | | | | | | CENTER | | + +-------+ + + + + + | Specimen | + + | Blood - Blood | | (substance) | + + + + + | Narrative | Performed At | + + + | Interpretation: <10 IU/mL Non-Reactive/Non-Immune | [facility] | | >=10-<15IU/mL EQUIVOCAL >=15 IU/mL Reactive Immune | [facility] | | The following results were obtained with the [employer] Rubella IgG | | | assay. Results from assays of other manufacturers cannot be used | | | interchangeably. | | + + + + + + + + | Performing | Address | City/State/Zipcode | Phone Number | | Organization | | | | + + + + + | [facility] | And | [place] [address] | [phone] | | [facility] | Streets | | | + + + + + RPR SERUM (01/05/2018 4:42 PM PDT) + + + + + + | Component | Value | Ref Range | Performed | Pathologist | | | | | At | Signature | + + + + + + | RPR | Nonreactive | Nonreactive | [facility] | | | | | [...] + + | [facility] | And | [place] [address] | [phone] | | [facility] | Streets | | | + + + + + HIV-1,2 AB/HIV-1 P24 AG SCREEN (01/05/2018 4:42 PM PDT) + + + + + + | Component | Value | Ref Range | Performed | Pathologist | | | | | At | Signature | + + + + + + | HIV-1,2 | NON-REACTIVEComment: | NON-REACTIVE | [facility] | | | AB/HIV-1 | HIV-1 antigen and | | DIAGNOSTICS | | | P24 AG | HIV-1/HIV-2 antibodies | | - [place] | | | SCREEN | were notdetected. There | | | | | | is no laboratory | | | | | | evidence of | | | | | | HIVinfection. PLEASE | | | | | | NOTE: This information | | | | | | has been disclosed toyou | | | | | | from records whose | | | | | | confidentiality may | | | | | | beprotected by state | | | | | | law. If your state | | | | | | requires suchprotection, | | | | | | then the state law | | | | | | prohibits you frommaking | | | | | | any further disclosure | | | | | | of the | | | | | | informationwithout the | | | | | | specific written consent | | | | | | of the personto whom it | | | | | | pertains, or as | | | | | | otherwise permitted by | | | | | | law.A general | | | | | | authorization for the | | | | | | release of medical | | | | | | orother information is | | | | | | NOT sufficient for this | | | | | | purpose. For | | | | | | additional information | | | | | | please refer | | | | | | tohttp://education.[employer] | | | | | | diagnostics.uShare/faq/FAQ1 | | | | | | 06(This link is being | | | | | | provided for | | | | | | informational/educationa | | | | | | l purposes only.) The | | | | | | performance of this | | | | | | assay has not been | | | | | | clinicallyvalidated in | | | | | | patients less than 2 | | | | | | years old. | | | | + + + + + + + + | Specimen | + + | Blood - Blood | | (substance) | + + + + + + + | Performing | Address | City/State/Zipcode | Phone Number | | Organization | | | | + + + + + | [facility] | [address] | [place] [address] | | | - [place] | [address] | | | + + + + + HEPATITIS B SURFACE ANTIGEN (01/05/2018 4:42 PM PDT) + + + + + + | Component | Value | Ref Range | Performed | Pathologist | | | | | At | Signature | + + + + + + | HEP B | Non-reactive | Non-reactive | [facility] | | | SURFACE | | | A MEDICAL | | | ANTIGEN | | | CENTER | | + + + + + + + + | Specimen | + + | Blood - Blood | | (substance) | + + + + + | Narrative | Performed At | + + + | Results obtained with the [employer] HBsAg immunoassay may not be | [facility] | | used interchangeably with the values obtained with different [facility] | | manufacturers' assay methods. | | + + + + + + + + | Performing | Address | City/State/Zipcode | Phone Number | | Organization | | | | + + + + + | [facility] | And | [place] [address] | [phone] | | [facility] | Street | | | + + + + + documented in this encounter Visit Diagnoses + + | Diagnosis | + + | Encounter for supervision of high risk in first trimester, antepartum | + + | BMI 40.0-44.9, adult (HCC) Body Mass Index 40.0-44.9, adult | + + documented in this encounter"
--- OUTSIDE RECORDS SUMMARY | ~2019-05-12 | XMS | Encounter Summary ---
Demographics + + + | Address | [address] | | | [place] [address] | + + + | Home Phone [...] | | Garrett | | [place] [address] | | + + + + + | Gracie Turcios | ECON | [place] | | + + + + + Care Team Providers + +------+ + | Care Wood Treating Inspector Name | Role | Phone | + +------+ + | Anisha Rivera | PCP | | + +------+ + Encounter Details +--------+------+ + + + | Date | Type | Department | Care Team | Description | +--------+------+ + + + | 01/12/ | Lab | Laboratory at | | BMI 40.0-44.9, adult | | 2018 | | [facility] | | ([facility]) | | | | Center [address] | | | | | [address] [place] | | | | | | [address] | | | +--------+------+ + + + [...] PROTEIN/CRE | 0.07 | <0.16 mg/mg | [facility] | | | ATININE | [...] + + + | [facility] | [place] | [place] [address] | [phone] | | MEDICAL CENTER | Streets | | | + + + + + documented in this encounter Visit Diagnoses + + | Diagnosis | + + | BMI 40.0-44.9, adult (HCC) Body Mass Index 40.0-44.9, adult | + + documented in this encounter"
--- OUTSIDE RECORDS SUMMARY | ~2019-05-12 | XMS | Encounter Summary ---
Demographics + + + | Address | [address] | | | [place] [address] | + + + | Home Phone | | + + + | Preferred Language | Unknown | + + + | Marital Status | Single | + + + | Druze Affiliation | NRP | + + + [...] | | Garrett | | [place] [address] | | + + + + + | Gracie Turcios | ECON | [place] | | + + + + + Care Team Providers + +------+ + | Care Depot Agent Name | Role | Phone | + +------+ + | Anisha Rivera | PCP | | + +------+ + Encounter Details +--------+------+ + + + | Date | Type | Department | Care Team | Description | +--------+------+ + + + | 01/07/ | Lab | Laboratory at | | Elevated hemoglobin | | 2017 | | [facility] | | A1c; High-risk | | | | Center [address] | | in first | | | | [address] [place] | | trimester | | | | [address] | | | +--------+------+ + + + [...] + | SEQUENTIAL SCREEN: | Routin | 01/07/2018 | High-risk | Results for this | | 1ST TRIMESTER, SERUM | e | 3:52 PM | in first | procedure are in the | | | | PDT | trimester | results section. | + +--------+ + + + | GLUCOSE TOLERANCE | Routin | 01/07/2018 | Elevated | Results for this | | TEST, 1 HOUR | e | 3:52 PM | hemoglobin A1c | procedure are in the | | | | PDT | | results section. | + +--------+ + + + documented in this encounter Results SEQUENTIAL SCREEN: 1ST TRIMESTER, SERUM (01/07/2018 3:52 [...] | [facility] | | | [address] | | | [place] [address] | | + + + + + + + + | Performing | Address | City/State/Zipcode | Phone Number | | Organization | | | | + + + + + | [facility] | | | | + [...] | [address] ([address]) | <130 mg/dL | [facility] | | | GLUCOSE - | | [...] for the diagnosis of gestational diabetes | [facility] | | only. | MEDICAL CENTER | + + + + + + + + | Performing | Address | City/State/Zipcode | Phone Number | | Organization | | | | + + + + + | [facility] | And | [place] [address] | [phone] | | [facility] [place] | Streets | | | + + + + + documented in this encounter Visit Diagnoses + + | Diagnosis | + + | Elevated hemoglobin A1c Other abnormal blood chemistry | + + | High-risk in first trimester | + + documented in this encounter"
--- OUTSIDE RECORDS SUMMARY | ~2019-05-12 | XMS | Encounter Summary ---
Demographics + + + | Address | [address] | | | [place] [address] | + + + | Home Phone [...] | | [place] | | [place] [address] | | + + + + + | Gracie Turcios | ECON | [place] | | + + + + + Care Team Providers + +------+ + | Care Composite Boat Builder Name | Role | Phone | + [...] + + + | 06/25/ | | [place] | [place], | | | 2019 | | [facility] [address] | MD Leonela [address] | | | | [address] | | | | [address] [place], [place] | [place], [place] | | | | | [address] | [address] | | | | | [phone] | [phone] | | | | | | | [...] think about when making your decision. The [place] [employer] has some helpful information that you can find by going to: www.[email or web address].org and searching for circumcision . If you decide to have your baby boy circumcised, it can sometimes be done during your [facility] stay. Check to see if your insurance [...] yment schedules, ask at time of scheduling. [facility] Family Medicine Ashley Edward MD [address] [place], [place] [address]es [place], [place] [phone] [facility] Michelle Macdonald MD [address] [facility] Reynaldo Mata MD [phone] [facility] Multiple providers [address] [facility] [phone] [facility] Isrrael Tillman MD [address] [facility] [phone] [address] [facility] [phone] [facility] Hasmukh Cortes MD [address] [facility] [phone] [facility] [place] [address] [address] [phone] [place] [phone] Group requires patients to establish care with [...] be flexible in your expectations of the [facility]. Because each is different, there is no [...] into your My Chart account at [email or web address]. You can enter B912 in the "Health Library" [facility] box. Not on HouseTriphart? Review the MyChart section of your After Visit Summary for directions on jean-claude w to sign up. Current as of: February 18, 2018 Content Version: 11.9 5244-4970 [employer]. Care instructions adapted under license by [facility] [employer] [place]. If you have questions about a medical condition or this instr uction, always ask your healthcare professional. [employer] disclaims any frederic anty or liability for [...] and affect A: Elizabet is a at 36w1d who presents today [...] | + + + + + | [facility] | And | [place] [address] | [phone] | | MEDICAL CENTER | Streets | [...]
--- OUTSIDE RECORDS SUMMARY | ~2019-05-12 | XMS | Encounter Summary ---
Demographics + + + | Address | [address] | | | [place] [address] | + + + | Home Phone [...] | | Garrett | | [place] [address] | | + + + + + | Gracie Turcios | ECON | [place] | | + + + + + Care Team Providers + +------+ + | Care Film Editor Name | Role | Phone | + [...] + + + | 07/02/ | | [place] | | Obstetric US Scan | | 2019 | | [facility] [address] | | | | | | [address] [facility] | | | | | | [address] [place], [place] | | | | | | [address] | | | | | | [phone] | | | +--------+ + + + [...] 1 week. | | | Performed by manometer technician. Type of ultrasound: ABDOMINAL. Read by | | | BARRERA HSIEH MD on 07/02/18 | | + + + + +---------+ + + | Performing | Address | City/State[facility] | Phone Number | | Organization [...]
--- OUTSIDE RECORDS SUMMARY | ~2019-05-12 | XMS | Encounter Summary ---
Demographics + + + | Address | [address] | | | [place] [address] | + + + | Home Phone | | + + + | Preferred Language | Unknown | + + + | Marital Status | Single | + + + | Mormon Affiliation | NRP | + + + [...] | | Garrett | | [place] [address] | | + + + + + | Gracie Turcios | ECON | [place] | | + + + + + Care Team Providers + +------+ + | Care Vacuum Extractor Operator Name | Role | Phone | + +------+ + | Anisha Rivera | PCP | | + +------+ + Encounter Details +--------+ + + + + | Date | Type | Department | Care Team | Description | +--------+ + + + + | 11/08/ | Telephone | [place] | [place], | | | 2018 | | [facility] [address] | MD Leonela [address] | | | | | E | | | | | | [address] [place], [place] | [place], [place] | | | | | [address] | [address] | | | | | [phone] | [phone] | | | | | | | [...]
--- OUTSIDE RECORDS SUMMARY | ~2019-05-12 | XMS | Encounter Summary ---
Demographics + + + | Address | [address] | | | [place] [address] | + + + | Home Phone | | + + + | Preferred Language | Unknown | + + + | Marital Status | Single | + + + | Caodaism Affiliation | NRP | + + + [...] | | [place] | | [place] [address] | | + + + + + | Gracie Turcios | ECON | АНДРЕ[place]CHARITYEL | | + + + + + Care Team Providers + +------+ + | Care Corrections Specialist Name | Role | Phone | + +------+ + | Anisha Rivera | PCP | | + +------+ + Reason for Visit + + + | Reason | Comments | + + + | care | [facility] review | + + + Encounter Details +--------+ + + + + | Date | Type | Department | Care Team | Description | +--------+ + + + + | 02/11/ | | [place] | | care ([facility] | | 2018 | | [facility] [address] | | review) | | | | [address] [facility] | | | | | | [address] [place] | | | | | | [address] | | | | | | [phone] | | | +--------+ + + + [...] + + | Weight | 112.9 kg (248 lb | 02/11/2018 8:32 AM | | | | 12.8 oz) | PDT | | + + + + + | Height | 157.5 cm (5' 2.01") | 02/11/2018 8:32 AM | | | | | PDT | | + + + + + | Body Mass Index | 45.49 | 02/11/2018 8:32 AM | | | | | PDT | | + + + + + documented in this encounter Progress Notes Marlee Frausto RN - 02/11/2018 8:00 AM Alejandro, 17 weeks gestation, , BMI 45.59 Elizabet is here for [facility] review. She has her Freestyle monitor with her, downloaded and gr aph printed. Elizabet has had difficulty remembering to check her blood sugars. She works a split shift for the [employer], 5-6 hours in the am in [place] and 2-6 hours in the afterno on in [place]. But she also forgets on her day off. Fourteen day schedule downloaded -02/10: 8 days without any checks, three day with one check, one day with two and one day w ith four times. We discussed ways to remember and she states she will start to set a timer on her phone. She will also set her monitor next to her morning pills to remember to check first thing in the morning. She states her boyfriend has also started to help her remember and she will try and be consistent. We reviewed her printout, she started work on Friday at 0530, checked at 0330 before work. She has met with the photo lab technician at [facility] once and she will schedule another a ppointment. Printout reviewed by Dr. John MD. Date range: 01/28-02/11/2018 Fasting 85-97 (2/6 abnormal) Post-breakfast: 120-130 (0/2 abnormal) Post-lunch: 84-129 (0/2 abnormal) Post-dinner: 113 (0/1 abnormal) Next appointment, 03/05/18, with Verna Rutherford CNM. documented in this e ncounter Plan of Treatment Not on filedocumented as of this encounter Visit Diagnoses + + | Diagnosis | + + | Diet controlled gestational diabetes mellitus (GDM) in second trimester - Primary | + + documented in this encounter
--- OUTSIDE RECORDS SUMMARY | ~2019-05-12 | XMS | Encounter Summary ---
Demographics + + + | Address | [address] | | | [place] [address] | + + + | Home Phone [...] | | Garrett | | [place] [address] | | + + + + + | Gracie Turcios | ECON | [place] | | + + + + + Care Team Providers + +------+ + | Care Montessori Preschool Teacher Name | Role | Phone [...] + + + | 07/02/ | | [place] | | monitoring | | 2019 | | [facility] [address] | | | | | | [facility] | | | | | | [address] [place], [place] | | | | | | [address] | | | | | | [phone] | | | +--------+ + + + [...] + + + | Blood Pressure | 128/84 | 07/02/2018 9:45 AM | | | | | PST [...] Weight | 123.4 kg (272 lb) | 07/02/2018 9:45 AM | | | | | PST | | + + + + + | Height | - | - | | + + + + + | Body Mass Index | 49.74 | 03/16/2018 3:13 PM | | | | | PDT | | + + + + + documented in this encounter Progress Notes Jordan Gonsalves RN - 07/02/2018 9:30 AM PSTNST: 23 y.o. at 37w1d weeks gesta tion. Indications for monitoring: GDM on insulin, BMI, velamentous cord Elizabet states that she has been sonali every 5-10 minutes with pain rating 7-8/10. C urrently taking 6 units NPH in the morning and 12 units NPH in the evening. FHT: Baseline FHR 145, moderate variability, 15 x 15 accelerations, and no decelerations. TOCO: muliple contractions noted in 45 minutes, rated at 7-8/10 on pain scale by patient. Strip reviewed by Royal Lopez MD. Next appointment usd and obr to follow then 07/06 for Cheryl MOORE. Glucose results reviewed by Dr. Lopez. documented in this encounter Plan of Treatment Not on filedocumented as of this encounter Procedures + +--------+ + + + | Procedure Name | Priori | Date/Time | Associated Diagnosis | Comments | | | ty | | | | + +--------+ + + + | NST | Routin | 07/02/2018 | Gestational | Results for this | [...] + documented in this encounter Results NST (07/02/2018) + + + + + [...]
--- OUTSIDE RECORDS SUMMARY | ~2019-05-12 | XMS | Encounter Summary ---
Demographics + + + | Address | [address] | | | [place] [address] | + + + | Home Phone [...] | | Garrett | | [place] [address] | | + + + + + | Gracie Turcios | ECON | [place] | | + + + + + Care Team Providers + +------+ + | Care Label Press Operator Name | Role | Phone | + +------+ + | Anisha Rivera | PCP | | + +------+ + Reason for Visit + + + | Reason | Comments | + + + | care | OB Nurse Intake Visit | + + + Encounter Details +--------+ + + + + | Date | Type | Department | Care Team | Description | +--------+ + + + + | 01/05/ | | [facility] | | care (OB | | 2018 | Initial | [facility] | | Nurse Intake Visit) | | | | E | | | | | | [address] [place], [place] | | | | | | [address] | | | | | | [phone] | | | +--------+ + + + [...] + + + | Blood Pressure | 124/76 | 01/05/2018 3:52 PM | | | [...] + + + + | Weight | 109.3 kg (241 lb) | 01/05/2018 3:52 PM | | | | | PDT | | + + + + + | Height | 157.5 cm (5' 2.01") | 01/05/2018 3:52 PM | | | | | PDT | | + + + + + | Body Mass Index | 44.07 | 01/05/2018 3:52 PM | | | | | PDT | | + + + + + documented in this encounter Patient Instructions Patient Instructions Jordan Gonsalves RN - 01/05/2018 3:24 PM PDT Initial Visit Welcome to [facility]! This is the first of several messages that will be a part of your After Visit Summary (AVS) . It s a long one, so take your time. We re so happy you ve chosen us to guide you t hrough your . Please read chapters 3 and 25 in your book. How do I reach my provider? Have you signed up for Regen ? It s the best way to communicate with us for your non-urgent needs. Head to this address to sign up: [email or web address] You will need the activation code you were given at your first visit, your medical record n umber, and your date of . The activation codes after 45 days. If you need a new one please ask any of our front desk representative staff or give us a call and we can provide over the milan ne! We ll try hard to answer your messages within 2-3 business days. Our main phone iris cornejo is [phone]. The phone lines operate from 8:00am-5:00pm. If you have an URGENT need, please call the phone line 24 hours/day and identify that this is an URGENT need. Weeks, Not Months By the way, we talk about WEEKS in , not MONTHS. The average lasts abou t 40 weeks (from your last menstrual period ). We label the week once the week is completed .thus, you will be 24 weeks when you finish the 24th week. Here are some milestones and the weeks-gestation when we usually see them: * Week 1- begins with the first day of your last period * Week 2- meeting of sperm and egg * Week 4-5- a missed period; maybe the beginning of some nausea and breast changes * Week 5- able to see a black dot (the gestational sac) on ultrasound * Week 6- able to see a yolk sac in the gestational sac * Week 6-7- able to see some cardiac motion (beating heart) on ultrasound * Week 8-9- able to make out arm and legs buds on the embryo * Week 12- usually can hear the heart beat with a Doppler machine * Week 14-16- nausea and fatigue begin to improve * Week 16-18- the earliest that experienced mothers first feel their baby s movements * Week 18-20- the earliest that first-time mothers first feel their baby s movements * Week 24- the beginning of the 10-week prematurity period * Week 34- still too early to be born, but baby is now rapidly maturing * Week 38- the beginning of term * Week 40- the average gestational age for a human baby at * Week 41- at the beginning of this week, you are one week overdue How should I eat to have a healthy ? One of your most important missions during your is good nutrition. Each of these AVS messages will contain a nutrition ta---simple advice about good nutrition- to make s ure you re doing all you can to provide the building blocks for a healthy baby. Today s ta is about HOW MUCH TO EAT. Keep it simple, eat the equivalent of 3 healthy meals and 2-3 healthy snacks. On average, you only need 300 extra calories PER DAY to build and susta in a health . In the beginning of , you don t really need extra calorie s at all. In fact, it s perfectly normal to lose a little weight (due to the nausea) or m aintain your current weight well into the early second trimester (after 14 weeks). Here are some general hints to get you started: ? increase your intake of foods with fiber and vitamins ? select foods choices that are low in added sugar ? begin to lower your intake of saturated fats by selecting low-fat dairy products and lean proteins (including beans/legumes, fish and seafood) ? take a second look at our Plate; [employer] Blue Print that you received at your Intake Visit Use the table below to help you meet your needs for protein which is ~71 grams pe r day Protein content of foods Dairy 8 grams per servin cup of milk 7 grams per servin oz yogurt, 1 oz hard cheese, cup cottage cheese Meat, poultry, fish, egg, nuts, legumes 7 grams per servin egg, 1 jumbo shrimp, 1 oz c hicken, cup beans, 2 TBS peanut butter, cup tofu, cup canned wild salmon, 23 almond s Grains 2-3 grams per serving (whole grains usually have more protein: 1 slice bread, cup rice or pasta 4 grams per serving: cup quinoa Vegetables 2 grams per serving, such as 1 cup raw spinach or cup cooked broccoli or alexis ots *(Rule of thumb- include something with protein in it at each meal and snack you eat- this will help you meet your daily goal and since protein is also the macronutrient that keeps yo u feeling fullest the longest, it will also help give you more sustained energy throughout t he day.) Calcium Your body s demand for calcium is greater during (and ). This need is especially great during the last 3 months of . The National Academy of Science s recommends that women who are or consume 1,000 mg (milligrams) of c alcium each day. For teens, the recommended intake is even higher: 1,300 mg of calc ium a day. Good sources of calcium include: ? low-fat dairy products, such as milk, yogurt, cheese, and ice cream ? dark green, leafy vegetables, such as broccoli, monroe greens, and bok gaudencio ? canned sardines and salmon with bones ? tofu, almonds, and corn tortillas ? foods fortified with calcium, such as orange juice, cereals, and breads. [place]-3 Fatty Acids Polyunsaturated fatty acids of the omega-3 and omega-6 groups have important roles in the d evelopment of your baby s brain. These fatty acids are not produced in the body. They ar e only available through what we eat. Two of these fatty acids have critical roles in the d evelopment of the brain and nervous system (arachidonic acid [AA] and docosahexaenoic acid [DHA]). The requirements during have not been established, but likely exceed that of a no n- state. Don t worry so much about the omega-6 fatty acids (you probably get ple nty and too much is not so good). More research is needed but it s quite likely that a ba chano of omega-3 and omega-6 fatty acids is more important to women than the actual blood levels of either. However, most experts agree that most women likely do not get enough omega-3 fatty acids because the major dietary source, seafood, is restricted to 2 servings a week. And, although DHA is the omega-3 fatty acid that gets most of the press, another omega-3 fatty ac id, EPA, plays an important role, too. For women to obtain adequate omega-3 fatty acids, a variety of sources should be consumed: ? vegetable oils ? 2 low-mercury fish servings a week, and ? supplements (fish oil or algae-based) .get one that includes both DHA and EPA, which th e algae-based supplement does not. What should I do if I am having issues with nausea or vomiting? Can t eat because of nausea and vomiting? Don t worry ..at this point babies are alicia y effective at getting what they need ..they can get their nutrients directly from your bl oodstream. But what about you, if you re not able to eat, or you re throwing everything up? Call us if you re unable to keep down fluids for more than 8 hours .you may need o ur help to get you through this. If you re keeping fluids down, but have no appetite dami use of nausea here are some things you might try before calling us: * First, eat before you feel hungry. Try to keep something in your stomach at all times. This may help keep your blood sugar from bottoming out. Eat small, frequent meals that in clude some protein. Get a healthy cookie or cracker (Rehab Care Assistant Yfn vieira has a manolo snap cooki e that s perfect for this), put it next to your bed and eat one or two before you get up i n the morning .then go eat a breakfast that includes some protein. * Drink something before you eat something. Small amounts of these drinks are often helpf ul: carbonated drinks, sports drinks, lemonade, manolo justin, and mint tea. * Eat what you can, when you can. If you re really nauseated, and can only stomach cert ain foods, eat what stays down you can catch up on good nutrition later when you feel b belle (usually by 14-16 weeks). * Try some manolo root ..as a tea, in manolo capsules, in manolo snap cookies, or as gin odette candy. Make sure that your manolo justin actually has real manolo in it. Here s a recipe for a manolo tea that s tasty, easy to make and easy to carry with you in a thermo s bottle: Buy a manolo root at the store. Peel off the brown stuff and use a knife or carrot nicol to cut off dime/nickel-sized slices. Throw a small handful of these into a pint of piping-h ot water and let it steep (after 10 minutes you can strain off the manolo but there s no n eed to remove the manolo if you don t want to). Aidan it with honey, but not too much. Squeeze half a lemon into it start sipping it and take a sip every 15-30 minutes. * Get a Seaband or Bioband ..an elastic bracelet that utilizes acupressure theory from [facility] [employer] . These bracelets have an acupressure button that compresses th e Nei-Archie , or P6 , acupressure spot. * Other hints: -brush your teeth -go outside and breathe fresh air; avoid stuffy rooms -don t take vitamins or supplements on an empty stomach -avoid odors that trigger your nausea * Still nauseated? Try Vitamin B6 and Unisom. Back in 1960s and 70s there was a drug dolly roved by the Food and Drug Administration for use in for nausea and vomiting. The drug was a mix of B6 and the active ingredient in Unisom (doxylamine). It s safe and kathy te effective. Here s what to do: buy Unisom tablets, not the gel caps. Before bed, take a half a Unisom tablet and 25 mg of Vitamin B6. If this is not working well, add in the mor ervin half a Unisom with 25 mg of Vitamin B6. You ll probably notice that you get quite sl eepy after taking it ..keep at it in three to four days the drowsiness will get be tter, and so will your nausea. * None of this is working? Call us. We have some prescription medicines that may help. I smoke and I want to stop. What should I do? Do you smoke cigarettes? Call us. We want to help you quit. Should I do genetic testing? There are a confusing number of options for genetic testing. Equally confusing can be a pr egnant woman s decision to either do the tests or not. This is a highly individualized is cecil, and no one should or should not do genetic testing- it is your individual decision. If you are having a difficult time reaching a decision, we can have you talk to one of our [facility] Counselors. Some women are at a higher risk of having a baby with a genetic problem. These women may w ant to talk with our Genetic Counselors as soon as they know they are . These women include: ? women who will be over the age of 35 when their baby is born ? women with a previous baby with a genetic problem or defect ? women with a family history of a genetic problem What were all the lab tests done at my Intake Visit? You may be wondering what we did with all that blood we took from your arm. Here s what we were looking at: * Your blood count. Blood consists of three different types of cells and watery fluid (c alled plasma) that contains specialized proteins. Your blood count can give us information about your general health status (from the hematocrit and hemoglobin), the presence of infec tion, and information about your blood s ability to clot. * Tests for specific diseases. We routinely test for evidence of past or present disease s, in particular- rubella (mauritanian measles), varicella (chicken pox), syphilis, HIV, and hepa titis. * Your blood type and Rh status. Your blood type may be A, B, O, or AB. That s import ant to know, in the event that you need a blood transfusion. In rare cases, it may be helpf ul to know your blood type if your develops jaundice. We also check to see if your blood carries the Rh protein. If you do carry it, you are Rh positive . If you do not have it, you are Rh Negative . Rh Negative mothers usually need injections of special ized gamma globulin to prevent the formation of antibodies against a Rh Positive fetus. We also test your blood for other antibodies that can harm your baby or make transfusions diffi cult. We also do some other tests; usually at the first visit. These might include: * A Pap smear, if you need one. * Tests for gonorrhea and Chlamydia, major causes of blindness. * Urine tests, for infection and kidney function. documented in this encounter Progress Notes Jordan Gonsalves RN - 01/05/2018 3:30 PM PDTInitial Nurse Intake Elizabet Turcios is a 22 y.o., , currently at 11w5d weeks by LMP and here t o establish care. LMP: Patient's last menstrual period was 10/15/2017. History of REGULAR periods. Medical, surgical, family, social and OB history updated with patient. Medications and allergies reviewed. Social History/Habits: Diet: One soda daily (rootbeer). 1 cup coffee daily. 2 servings fruits/vegetables daily. Fa stfood 1-2 times daily (has increased with ). Declines nutrition consult. Dental Care: December 16, 2017 Physical Activity: None, works many hours/days in a row. Employment/Education: [employer] 40+ hours per week. High school education. Home Life and Safety: Negative Abuse Screen: Negative Social Summary: Elizabet lives with her Michael ricks in [place]. She works at [place] [employer] and at the [employer] [place] [employer]. She is currently on day 10 of work. She doesn't not get much time off. This was an unplanned . She states she had just stopped her control as it was making her feel sick and had scheduled an appointment to try something else but becam e before making it to her control appt. This is her millicent's second child. He has a 5 year old daughter, Yecenia. Michael works as a [employer]/oil poured concrete wall technician. Vitals: Weight: 109.3 kg (241 lb) (01/05/18 1552) BP: 124/76 (01/05/18 1552) Body mass index is 44.07 kg/m. Education Discussed and information given: General visit schedule including labwork and diagnostic testing How/when to contact the clinic or on-call provider Genetic Screening Nutrition in , PNV, recommended weight gain and exercise Hazards: Smoking, ETOH, Drugs, Overheating, Cats Common early discomforts and relief measures [employer] Insurance Risk Factors Identified BMI 44 Current concerns 1. Nausea/vomiting: Patient has not been able to keep much down. She states that she can ke ep down water and Corbin's yogurt parfaits. She has tried unisom but it makes her feel too groggy. She has to drive to [place] for work everyday. Will ask the provider to send in a pre scription for nausea. Patient has had 8 pound weight loss since last visit 12/10/17. 2. Pt does not want diet intervention. She states she knows what she should be eating. She does not eat many fruits/vegetables. Plan 1. Labs ordered per protocol, to be completed today. 2. OB Exam Next Appointment is on 01/07/18 at 8:30 am with Natasha Jones MD.. 3. Declines WIC. Will check into this herself. Accepts [employer] forms but will take home to look over. 4. Interested in NT and Sequential Screen. Uncertain about CF/SMA/Carrier screening. Due to pt being 04/20 encouraging her to schedule NT usd for Friday and calling her insurance ri dayanna away tonight. Pt should call us in the morning to let us know if she needs prior authori zation. documented in this encounter Plan of Treatment Not on filedocumented as of this encounter Results PROTEIN, URINE (01/05/2018 4:42 PM PDT) + [...] PROTEIN/CRE | 0.06 | <0.16 mg/mg | [facility] | | | ATININE | | [...] | [facility] | And | [place] [address] | [phone] | | MEDICAL CENTER | Streets | [...] | | A MEDICAL | | | [facility] | | | CENTER | | + [...] the MDRD equation recommended by the | [facility] | | National Kidney Disease Education Program. Estimated GFR | [facility] | | Interpretive Information: <60 mL/min/1.73 [...] + + | [facility] | [address] | [place] [address] | [phone] | | MEDICAL CENTER | Streets | | | + + + + + URIC ACID, PLASMA (01/05/2018 4:42 PM PDT) + +-------+ + + + | Component | Value | Ref Range | Performed | Pathologist | | | | | At | Signature | + +-------+ + + + | URIC ACID, | 3.5 | 2.4 - 5.7 mg/dL | [facility] | | | PLASMA | | [...] | [facility] | [address] | [place] [address] | [phone] | | MEDICAL CENTER | Streets | | | + + + + + UREA NITROGEN, PLASMA (01/05/2018 4:42 PM PDT) + +-------+ + + + | Component | Value | Ref Range | Performed | Pathologist | | | | | At | Signature | + +-------+ + + + | BUN, PLASMA | 7 | 6 - 26 mg/dL | [facility] | | | (LAB) | [...] + | [facility] | [address] | [place] [address] | [phone] | | MEDICAL CENTER | Streets | | | + + + + + HEMOGLOBIN A1C, BLOOD (01/05/2018 4:42 PM PDT) + +-------+ + + + | Component | Value | Ref Range | Performed | Pathologist | | | | | At | Signature | + +-------+ + + + | HEMOGLOBIN | 5.7 | % | [facility] | | | A1C | | | A MEDICAL | | | | | | CENTER | | + +-------+ + + + | ESTIMATED | 117 | mg/dL | [facility] | | | [facility] | | | A MEDICAL | | | GLUCOSE | | | CENTER | | + +-------+ + + + + + | Specimen | + + | Blood - Blood | | (substance) | + + + + + | Narrative | Performed At | + + + | Glycohemoglobin Recommended Diabetic Ranges per DCCT & ADA: | [facility] | | Normal Range: <6% [facility] | | Good Control: <7% | | | Additional action suggested: >8% Non-Diabetic | | | Ranges: 4-6% Hardware Trainer's Glycohemoglobin | | | Diabetic Ranges: Normal Range: | | | 4.0-6.0% Good Control: | | | 6.0-8.0% Poor Control: | | | >8.0% | | + + + + + + + + | Performing | Address | City/State/Zipcode | Phone Number | | Organization | | | | + + + + + | [facility] | And | [place] [address] | [phone] | | [facility] | Streets | | | [...] | - [place] | | | | Assay([employer] | | | | | | [...] + + | [facility] | [address] [facility] | [place] [address] | | | - [place] | [address] | | | + + + + + STEPHANIE OSORIO/ STEVAN (01/05/2018 4:42 PM PDT) + + + [...] | SOURCE | Clean catch | | [facility] | | | (URINALYSIS | | | [...] | [facility] | And | [place] [address] | [phone] | | MEDICAL CENTER | Streets | [...] clinically | [facility] | | indicated. | MEDICAL CENTER | + + + + + + + + | Performing | Address | City/State/Zipcode | Phone Number | | Organization | | | | + + + + + | [facility] | [address] | [place] [address] | [phone] | | [facility] | Streets | | | + + [...] + + + | Test performed at [facility] | [facility] | | [address] DIAGNOSTICS - | | [place] [address] | [place] | | Professor Of Oceanography LISANDRA HUA MD | | + + + + + + + + | Performing | Address | City/State/Zipcode | Phone Number | | Organization | | | | + + + + + | [facility] | [address] | [place] [address] | | | - [place] | [address] | | | + + + + + TSH W/REFLEX TO FREE T4(IF ABNORMAL) (01/05/2018 4:42 PM PDT) + +-------+ + + + | Component | Value | Ref Range | Performed | Pathologist | | | | | At | Signature | + +-------+ + + + | TSH | 2.21 | 0.34 - 5.60 | [facility] | | | | | uIU/mL | [...] | + + + + + | [facility] | And | [place] [address] | [phone] | | MEDICAL CENTER | Streets | | | + + + + + RUBELLA IGG AB, SERUM (01/05/2018 4:42 PM PDT) + +-------+ + + + | Component | Value | Ref Range | Performed | Pathologist | | | | | At | Signature | + +-------+ + + + | RUBELLA IGG | 42 | IU/mL | [facility] | | | AB | | | A MEDICAL | | | | | | CENTER | | + +-------+ + + + + + | Specimen | + + | Blood - Blood | | (substance) | + + + + + | Narrative | Performed At | + + + | Interpretation: <10 IU/mL Non-Reactive/Non-Immune | [facility] | | >=10-<15IU/mL EQUIVOCAL >=15 IU/mL Reactive Immune | [facility] | | The following results were obtained [...] + + | [facility] | And | [place] [address] | [phone] | | MEDICAL CENTER | Streets | | | + + + + + RPR SERUM (01/05/2018 4:42 PM PDT) + + + + + + | Component | Value | Ref Range | Performed | Pathologist | | | | | At | Signature | + + + + + + | RPR | Nonreactive | Nonreactive | [facility] | | | | | | [...] | [facility] | And | [place] [address] | [phone] | | MEDICAL CENTER | Streets | [...] AG | HIV-1/HIV-2 antibodies | | - [place] | | | SCREEN | were notdetected. [...] refer | | | | | | [email or web address] | | | | | | [email or web address] | | | | | | 06(This [...] + + + | [facility] | [address] | [place] [address] | | | - [place] | [address] | | | + + [...] Elecsys HBsAg immunoassay may not be | [facility] | | used interchangeably with the values obtained with different | [facility] | | manufacturers' assay methods. | | + + + + + + + + | Performing | Address | City/State/Zipcode | Phone Number | | Organization | | | | + + + + + | [facility] | And | [place] [address] | [phone] | | [facility] | Streets | | | + + + + + documented in this encounter Visit Diagnoses + + | Diagnosis | + + | Encounter for supervision of high risk in first trimester, antepartum - | | Primary | + + | BMI 40.0-44.9, adult (HCC) Body Mass Index 40.0-44.9, adult | + + | High-risk in first trimester | + + documented in this encounter
--- OUTSIDE RECORDS SUMMARY | ~2019-05-12 | XMS | Encounter Summary ---
Demographics + + + | Address | [address] | | | [place] [address] | + + + | Home Phone [...] | | [place] | | [place] [address] | | + + + + + | Gracie Turcios | ECON | [place]CHARITY[place] | | + + + + + Care Team Providers + +------+ + | Care Drop Forger Helper Name | Role | Phone | [...] + + + | 06/18/ | | [facility] | | Obstetric US Scan | | 2019 | | [facility] [address] | | | | | | [address] [facility] | | | | | | [address] [place], [place] | | | | | | [address] | | | | | | [phone] | | | +--------+ + + + [...] | | | weekly AFIs. Performed by generation technician. Type of ultrasound: | | | [...]
--- OUTSIDE RECORDS SUMMARY | ~2019-05-12 | XMS | Encounter Summary ---
Demographics + + + | Address | [address] | | | [place] [address] | + + + | Home Phone [...] | | [place] | | [place] [address] | | + + + + + | Gracie Turcios | ECON | [place]CHAR[place] | | + + + + + Care Team Providers + +------+ + | Care Executive Kitchen Manager Name | Role | Phone | + +------+ + | Anisha Rivera | PCP | | + +------+ + Reason for Visit + + + | Reason | Comments | + + + | | | + + + | Obstetric US Scan | JUANI | + + + | monitoring | | + + + Encounter Details +--------+ + + + + | Date | Type | Department | Care Team | Description | +--------+ + + + + | 07/09/ | | [facility] | Natasha Jones, | ; Obstetric | | 2019 | | [facility] | MD [address], | US Scan (JUANI); | | | | [address] [place], [place] | monitoring | | | | [address] [place], [place] | [address] | | | | | [address] | [phone] | | | | | [phone] | | | +--------+ + + + [...] + + + | Blood Pressure | 126/82 | 07/09/2018 3:19 PM | | | | | PST [...] + + + + | Weight | 124.7 kg (275 lb) | 07/09/2018 3:19 PM | | | | | PST | | + + + + + | Height | - | - | | + + + + + | Body Mass Index | 50.29 | 03/16/2018 3:13 PM | | | | | PDT | | + + + + + documented in this encounter Patient Instructions Patient Instructions Valorie Berrios MA - 07/09/2018 3:15 PM PSTPrenatal Visit - Week 38 Please read chapter 12 in your book. Continue to monitor for any contractions, fluid leakage, bleeding or decreased moveme nt. If you have bleeding or decreased movement, are in labor or think your water has broken, please go to [facility] (Labor and Delivery). Please call if you have any concerns. After hours call [facility] if you think you are in labor to let them know you are juani barrera in. [phone]. Normal human lasts about 40 weeks (from the beginning of the last menstrual perio d), give or take about 10 days. Babies born before this 20-day period can show signs of lópez ng too early. Babies born after this period may show signs of being too late. If you're reading this, you probably don't need to worry about going into labor too soon. However, about 5% of mothers will go beyond their due date by a week or more. There is reason to be concerned about being overdue as you approach 10 days beyond your exp ected due date. The placenta is the body's one disposable organ .use once and throw it aw ay (or plant a tree on top of it!). The placenta was not designed to last 75 years like our other organs. It begins to age rapidly after about 40 weeks. It fills up with mineral dep osits and scar tissue pieces of it may actually and cease functioning. Obviously, your baby depends on a healthy placenta for nutrition, oxygen, and the eliminati on of some waste products. In a sense, it functions as your baby's lungs. An unhealthy brady centa can deprive your baby of what it needs to thrive. If you go over your due date by one week, we will offer to induce your labor. If you elect not to be induced, we will want you to come in for testing every 3 or 4 days while we wait for labor. If you don't go into labor prior to the end of the 41st week, we will stro ngly advise induction of labor. Make sure you re ready for coming home after the baby is born ? Practice installing your car seat in the car! ? Make a list of things people can do to help you when they ask. Put it on the fridge - i t s good to give them specific jobs grocery shopping, cooking meals, walking the dog, doing a load of your laundry. Almost anything is fair game and people love to have an assig cb task. ? Make a list of foods you like, brands, sizes be specific so shoppers can get the righ t thing. ? Have you gone to get a breast pump? call if you need a prescription and we can fax it to a medical supplier. ? If you already have a child, their life is going to change dramatically. Make a list of activities your child likes to do, favorite toys and foods to help any family or friends who may be pitching in. ? Take a look at a couple of websites that can be helpful in figuring out which emotional u ps and downs are normal after your baby arrives: o www.babybluesconnection.com o www..net ? Have a supply of maxi pads, Tucks witch lisa pads for hemorrhoids or healing stitc hes, buy some over the counter stool softener to have on hand for constipation, buy some naomi ast pads in case you have leaking. ? Make sure you have plenty of soft pillows, or a special support pillow. Our Services As we said in an earlier message, we want you to breastfeed your baby ..and we're here to help you succeed. We have Consultants available in labor and delivery to help. Just Call to make an appointment. Week 38 of Your : Care Instructions Your Care Instructions Believe it or not, your baby is almost here. You may have ideas about your baby's personali ty because of how much he or she moves. Or you may have noticed how he or she responds to so unds, warmth, cold, and light. You may even know what kind of music your baby likes. By now, you have a better idea of what to expect during delivery. You may have talked about your preferences with your doctor. But even if you want a vaginal , it is a good idea to learn about births. means that your baby is born through a cut (incision) in your lower belly. It is sometimes the best choice for the health of the ba by and the mother. This care sheet can help you understand births. It also gives you information abou t what to expect after your baby is born. And it helps you understand more about depression. Follow-up care is a emerson part of your treatment and safety. Be sure to make and go to all ap pointments, and call your doctor if you are having problems. It's also a good idea to know y our test results and keep a list of the medicines you take. How can you care for yourself at home? Learn about Most C-sections are unplanned. They are done because of problems that occur during labor . These problems might include: Labor that slows or stops. High blood pressure or other problems for the mother. Signs of distress in the baby. These signs may include a very fast or slow heart rate. Although most mothers and babies do well after , it is major surgery. It has mo re risks than a vaginal delivery. In some cases, a planned may be safer than a vaginal delivery. This may be the case if: The mother has a health problem, such as a heart condition. The baby isn't in a head-down position for delivery. This is called a breech position. The uterus has scars from past surgeries. This could increase the chance of a tear in th e uterus. There is a problem with the placenta. The mother has an infection, such as genital herpes, that could be spread to the baby. The mother is having twins or more. The baby weighs 9 to 10 pounds or more. Because of the risks of , planned C-sections generally should be done only for medical reasons. And a planned should be done at 39 weeks or later unless there is a medical reason to do it sooner. Know what to expect after delivery, and plan for the first few weeks at home You, your baby, and your partner or head tennis coach will get identification bands. Only people wit h matching bands can machine pecan picker the baby from the nursery. You will learn how to feed, diaper, and bathe your baby. And you will learn how to care for the umbilical cord stump. If your baby will be circumcised, you will also learn how to c are for that. Ask people to wait to visit you until you are at home. And ask them to wash their hands before they touch your baby. Make sure you have another adult in your home for at least 2 or 3 days after the . During the first 2 weeks, limit when friends and family can visit. Do not allow visitors who have colds or infections. Make sure all visitors are up to yue e with their vaccinations. Never let anyone smoke around your baby. Try to nap when the baby naps. Be aware of depression "Baby blues" are common for the first 1 to 2 weeks after . You may cry or feel sad or irritable for no reason. For some women, these feelings last longer and are more intense. This is called postpart um depression. If your symptoms last for more than a few weeks or you feel very depressed, ask your doc tor for help. depression can be treated. Support groups and counseling can help. Sometimes medicine can also help. Where can you learn more? To learn more about "Week 38 of Your : Care Instructions", log into your Startist a ccount at [email or web address]. You can enter B044 in the "Libri[employer] Library" search box . Not on Startist? Review the Startist section of your After Visit Summary for directions on [place] to sign up. Current as of: February 18, 2018 Content Version: .[id number] [employer]. Care instructions adapted under license by [facility] [employer] [place]. If you have questions about a medical condition or this instr uction, always ask your healthcare professional. [employer] disclaims any frederic anty or liability for your use of this information. documented in this encounter Progress Notes Natasha Jones MD - 07/09/2018 3:15 PM PSTReturn OB Visit S: Patient feeling OK. Ready to be done with . Excited for induction next week. Reports active FM. Having BH contractions. No bleeding or leaking. Not checking CBGs 2-4 times per day. Taking insulin as prescribed. CBGs that are recorded are within goal. All fastings normal. O: VS: BP 126/82 | Wt 124.7 kg (275 lb) | LMP 10/15/2017 | BMI 50.29 kg/(m^2) Gen: Well-appearing, in no distress Abd: soft, NT, gravid Ext: No LE edema or calf tenderness SVE: closed/posterior JUANI: 16.34, bladder full A/P: 23 y.o. at 38w1d here for visit. c/b gestational diabetes o n insulin, velamentous cord insertion, obesity, polyhydramnios (resolved). - PNC: UTD, GBS neg - GDM: Discussed importance of checking CBGs QID, though values she does have are within go al. Continue current dose of NPH 11/25. - Polyhydramnios: JUANI decreased significantly from 1 week prior. Patient denies any leaking . bladder full, so possibly contributing. Suspect related to gestational age and brady cental factors with velamentous cord insertion. NST reactive with no decels. Plan NST in 4 days and IOL in 1 week. - IOL: scheduled induction for 07/15/17 at 8 pm with miso. Discussed expectations for durati on of labor, risk of shoulder dystocia with GDM, increased risk of intolerance due to velamentous cord insertion and possible need for . - RTC in 4 days for NST Natasha Jones MD Jaz Rainey, KATHY - 07/09/2018 3:15 PM PSTNST: 23 y.o. at 38w1d weeks gestation. Indications f or monitoring: GDM on insulin, BMI 44, Velamentous cord, Polyhydramnios. FHT: Baseline FHR 120, moderate variability, 15 x 15 accelerations, and no decelerations. TOCO: Five contractions noted in 42 minutes, rated at 7/10 on pain scale by patient, feels mildly like menstrual cramps in low abdomen and upper abdomen is painful at 7/10. Strip reviewed by Dr. Jones. Next appointment 07/13/18 at 8:00 am for routine ob care and NST. Pt states understanding to call clinic or go to ob if contractions worsen, she has le aking of fluid or vaginal bleeding, decreased movement or other questions/concerns. documented in th is encounter Plan of Treatment + +---------+--------+ + + | Name | Type | Priori | Associated Diagnoses | Date/Time | | | | ty | | | + +---------+--------+ + + | [facility] | Imaging | Routin | High-risk | 07/09/2018 3:16 PM | | MORE FETUSES LIMITED | | e | in third | PST | | | | | trimester Insulin | | | | | | controlled | | | | | | gestational diabetes | | | | | | mellitus (GDM) in | | | | | | third trimester | | + +---------+--------+ + + + +---------+--------+ + + | Name | Type | Priori | Associated Diagnoses | Order Schedule | | | | ty | | | + +---------+--------+ + + | [facility] | Imaging | Routin | High-risk | Expected: | | MORE FETUSES LIMITED | | e | in third | 07/09/2018, Expires: | | | | | trimester Insulin | 08/09/2019 | | | | | controlled | | | | | | gestational diabetes | | | | | | mellitus (GDM) in | | | | | | third trimester | | + +---------+--------+ + + documented as of this encounter Procedures + +--------+ + + + | Procedure Name | Priori | Date/Time | Associated Diagnosis | Comments | | | ty | | | | + +--------+ + + + | NST | Routin | 07/09/2018 | Gestational | Results for this | [...] + documented in this encounter Results NST (07/09/2018) + + + + + [...] in third trimester | + + | Gestational diabetes mellitus (GDM) in second trimester controlled on oral | | hypoglycemic drug | + + documented in this encounter
--- OUTSIDE RECORDS SUMMARY | ~2019-05-12 | XMS | Encounter Summary ---
Demographics + + + | Address | [address] | | | [place] [address] | + + + | Home Phone | | + + + | Preferred Language | Unknown | + + + | Marital Status | Single | + + + | Protestant Affiliation | NRP | + + + [...] | | [address] | | [place] [address] | | + + + + + | Gracie Turcios | ECON | [place] | | + + + + + Care Team Providers + +------+ + | Care Line Supervisor Name | Role | Phone | + +------+ + | Anisha Rivera | PCP | | + +------+ + Encounter Details +--------+------+ + + + | Date | Type | Department | Care Team | Description | +--------+------+ + + + | 12/22/ | Lab | Laboratory at [facility] | | Prediabetes | | 2019 | | Family Medicine | | | | | | [address] | | | | | | [place], [place] | | | | | | [address] | | | | | | [phone] | | | +--------+------+ + + + [...] + | HEMOGLOBIN A1C, | Routin | 12/22/2018 | Prediabetes | Results for this | | BLOOD | e | 2:59 PM | | procedure are in the | | | | PDT | | results section. | + +--------+ + + + documented in this encounter Results HEMOGLOBIN A1C, BLOOD (12/22/2018 2:59 PM PDT) + +-------+ + + + | Component | Value | Ref Range | Performed | Pathologist | | | | | At | Signature | + +-------+ + + + | HEMOGLOBIN | 5.9 | % | [facility] | | | A1C | | | [facility] | | | | [facility] | | + +-------+ + + + | ESTIMATED | 123 | mg/dL | [facility] | | | [...] Diabetic Ranges per DCCT & ADA: | [facility] | | Normal Range: <6% | [facility] | | Good Control: <7% | | | Additional action suggested: >8% Non-Diabetic | | | Ranges: 4-6% Food Tester's Glycohemoglobin | | | Diabetic Ranges: Normal Range: | | | 4.0-6.0% Good Control: | | | 6.0-8.0% Poor Control: | | | >8.0% | | + + + + + + + + | Performing | Address | City/State/Zipcode | Phone Number | | Organization | | | | + + + + + | [facility] | And | [place] [address] | [phone] | | [facility] | [address] | | | + + + + + documented in this encounter Visit Diagnoses + + | Diagnosis | + + | Prediabetes Other abnormal glucose | + + documented in this encounter"
--- OUTSIDE RECORDS SUMMARY | ~2019-05-12 | XMS | Encounter Summary ---
Demographics + + + | Address | [address] | | | [place] [address] | + + + | Home Phone | | + + + | Preferred Language | Unknown | + + + | Marital Status | Single | + + + | Anglican Affiliation | NRP | + + + [...] | | Garrett | | [place] [address] | | + + + + + | Gracie Turcios | ECON | АНДРЕЙCHARITYEL | | + + + + + Care Team Providers + +------+ + | Care Funeral Driver Name | Role | Phone | + +------+ + | Anisha Rivera | PCP | | + +------+ + Reason for Visit + + + | Reason | Comments | + + + | Ultrasound | | + + + Encounter Details +--------+ + + + + | Date | Type | Department | Care Team | Description | +--------+ + + + + | 12/10/ | | [place] | Pentopoulos, | Ultrasound | | 2018 | | [facility] [address] | MD Leonela [address] | | | | [address] | [address] | | | | | [address] [place], [place] | [place], [place] | | | | | [address] | [address] | | | | | [phone] | [phone] | | | | | | | [...] + + + | Blood Pressure | 116/74 | 12/10/2017 9:37 AM | | | | | PDT [...] + + + + | Weight | 113.9 kg (251 lb) | 12/10/2017 9:37 AM | | | | | PDT | | + + + + + | Height | - | - | | + + + + + | Body Mass Index | 44.46 | 02/11/2017 8:23 AM | | | | | PDT | | + + + + + documented in this encounter Patient Instructions Patient Instructions Leonela Luke MD - 12/10/2017 9:45 AM PDTFormatting of this n ote might be different from the original. Initial Visit Welcome to [facility]! This is the first of several messages that will be a part of your After Visit Summary (AVS) . It s a long one, so take your time. We re so happy you ve chosen us to guide you t hrough your . Please read chapters 3 and 25 in your book. How do I reach my provider? Have you signed up for Visterra ? It s the best way to communicate with us for your non-urgent needs. Head to this address to sign up: [email or web address] You will need the activation code you were given at your first visit, your medical record n umber, and your date of . The activation codes after 45 days. If you need a new one please ask any of our senior front end developer staff or give us a call and we can provide over the milan ne! We ll try hard to answer your messages within 2-3 business days. Our main phone iris cornejo is [phone]. The phone lines operate from 8:00am-5:00pm. If [...] take a second look at our Plate; Radio NEXT Blue Print that you received at your [...] such as orange juice, cereals, and breads. [place]-3 Fatty Acids Polyunsaturated fatty acids of the [...] protein. Get a healthy cookie or cracker (Electric Accounting Machine Operator Yfn dariel has a manolo snap cooki e that [...] elastic bracelet that utilizes acupressure theory from [facility] . These bracelets have an acupressure [...] have you talk to one of our [facility] Counselors. Some women are at a higher [...] or present disease s, in particular- rubella (north k[place] measles), varicella (chicken pox), syphilis, HIV, and [...] Urine tests, for infection and kidney function. Weeks 6 to 10 of Your : Care Instructions Your Care Instructions Congratulations on your . This is an exciting and important time for you. During the first 6 to 10 weeks of your , your body goes through many changes. Your baby grows very fast, even though you cannot feel it yet. You may start to notice that you feel different, both in your body and your emotions. Because each woman's is uniqu e, there is no right way to feel. You may feel the healthiest you have ever been, or you may feel tired or sick to your stomach ("morning sickness"). These early weeks are a time to make healthy choices and to eat the best foods for you and your baby. This care sheet will give you some ideas. This is also a good time to think about defects testing. These are tests done during to look for possible problems with the baby. First trimester tests for defec ts can be done between 10 and 13 weeks of , depending on the test. Talk with your d octor about what kinds of tests are available. Follow-up care is a emerson part of your treatment and safety. Be sure to make and go to all ap pointments, and call your doctor if you are having problems. It's also a good idea to know y our test results and keep a list of the medicines you take. How can you care for yourself at home? Eat well Eat at least 3 meals and 2 healthy snacks every day. Eat fresh, whole foods, includin or more servings of bread, tortillas, cereal, rice, pasta, or oatmeal. 3 or more servings of vegetables, especially leafy green vegetables. 2 or more servings of fruits. 3 or more servings of milk, yogurt, or cheese. 2 or more servings of meat, turkey, chicken, fish, eggs, or dried beans. Drink plenty of fluids, especially water. Avoid sodas and other sweetened drinks. Choose foods that have important vitamins for your baby, such as calcium, iron, and clarence te. Dairy products, tofu, canned fish with bones, almonds, broccoli, dark leafy greens, corn tortillas, and fortified orange juice are good sources of calcium. Beef, poultry, liver, spinach, lentils, dried beans, fortified cereals, and dried fruits are rich in iron. Dark leafy greens, broccoli, asparagus, liver, fortified cereals, orange juice, peanuts, and almonds are good sources of folate. Avoid foods that could harm your baby. Do not eat raw or undercooked meat, chicken, or fish (such as sushi or raw oysters). Do not eat raw eggs or foods that contain raw eggs, such as Caesar dressing. Do not eat soft cheeses and unpasteurized dairy foods, such as Brie, feta, or blue chees e. Do not eat fish that contains a lot of mercury, such as shark, swordfish, tilefish, or k ing mackerel. Do not eat more than 6 ounces of tuna each week. Do not eat raw sprouts, especially alfalfa sprouts. Cut down on caffeine, such as coffee, tea, and cola. Protect yourself and your baby Do not touch ruben litter or cat feces. They can cause an infection that could harm your baby. High body temperature can be harmful to your baby. So if you want to use a sauna or hot tub, be sure to talk to your doctor about how to use it safely. [place] with morning sickness Sip small amounts of water, juices, or shakes. Try drinking between meals, not with meal s. Eat 5 or 6 small meals a day. Try dry toast or crackers when you first get up, and eat b reakfast a little later. Avoid spicy, greasy, and fatty foods. When you feel sick, open your windows or go for a short walk to get fresh air. Try nausea wristbands. These help some women. Tell your doctor if you think your vitamins make you sick. Where can you learn more? To learn more about "Weeks 6 to 10 of Your : Care Instructions", log into your [employer] account at [email or web address]. You can enter G112 in the "Health Library" [employer]InCab Design box. Not on Visterra? Review the OrthoScant section of your After Visit Summary for directions on jean[place]claude park to sign up. Current as of: August 29, 2016 Content Version: 11.5 0497-1457 [employer]. Care instructions adapted under license by [facility] & [facility]. If you have questions about a medical condition or this instr uction, always ask your healthcare professional. [employer] disclaims any frederic anty or liability for your use of this information. documented in this encounter Progress Notes Leonela Luke MD - 12/10/2017 9:45 AM PDTHistory: 22 y.o. at 7w6d by LMP p resenting for a OB ultrasound. Viable moran with CRL measuring 1.67cm, consistent with 8w 0d. FHR: present Uterus: normal Right Ovary: normal Left Ovary: normal Impression: 22 y.o. at 7w6d weeks gestation with a viable IUP. Ultrasound consiste nt with menstrual dating. Recommendations: I reviewed the findings of today's ultrasound with Elizabet Turcios I recommend a follow up ultrasound for NT at 12 weeks gestation if pt desires. Completed and reviewed by Leonela Luke MD on 12/09/17 documented in th is encounter Plan of Treatment Not on filedocumented as of this encounter Procedures + +--------+ + + + | Procedure Name | Priori | Date/Time | Associated Diagnosis | Comments | | | ty | | | | + +--------+ + + + | US CLINIC OB | Routin | 12/10/2017 | Possible | Results for this | | TRANSVAGINAL REAL | e | 10:01 AM | , not yet | procedure are in the | | TIME | | PDT | confirmed | results section. | + +--------+ + + + documented in this encounter Results [facility] OB TRANSVAGINAL REAL TIME (12/10/2017 10:01 AM PDT) + + + | Impressions | Performed At | + + + | History: 22 y.o. at 7w6d by LMP presenting for a OB | [facility]INT [facility] | | ultrasound. Viable moran with CRL measuring | CARE TESTING | | 1.67cm, consistent with 8w 0d. FHR: present Uterus: normal | | | Right Ovary: normal Left Ovary: normal Impression: 22 y.o. | | | at 7w6d weeks gestation with a viable IUP. Ultrasound | | | consistent with menstrual dating. Recommendations: I reviewed | | | the findings of today's ultrasound with Elizabet Estefania Tam | | | I recommend a follow up ultrasound for NT at 12 weeks gestation if pt | | | desires. Completed and reviewed by Leonela Luke MD on | | | 12/09/17 | | + + + + +---------+ + + | Performing | Address | City/State/Zipcode | Phone Number | | Organization | | | | + +---------+ + + | [facility] | | | | | TESTING | | | | + +---------+ + + documented in this encounter Visit Diagnoses + + | Diagnosis | + + | with history of miscarriage, first trimester - Primary | + + | Possible , not yet confirmed examination or test, | | unconfirmed | + + documented in this encounter
--- OUTSIDE RECORDS SUMMARY | ~2019-05-12 | XMS | Encounter Summary ---
Demographics + + + | Address | [address] | | | [place] [address] | + + + | Home Phone | | + + + | Preferred Language | Unknown | + + + | Marital Status | Single | + + + | Taoism Affiliation | NRP | + + + [...] | | [place] | | [place] [address] | | + + + + + | Gracie Turcios | ECON | АНДРЕЙCHARITYEL | | + + + + + Care Team Providers + +------+ + | Care Procurement Officer Name | Role | Phone | [...] + + + | 05/14/ | | [place] | Natasha Jones, | | | 2018 | | [facility] [address] | MD [address] | | | | | [address] [place], [place] | | | | | [address] [place], [place] | [address] | | | | | [address] | [phone] | | | | | [phone] | | | +--------+ + + + [...] the nutritional choices you make NOW. Your pdmv-so-nl-born baby will learn hi s/her first nutritional [...] ..we ll get you together with our med surg rn. your baby We want you to breastfeed your baby. Your oil well perforator operator wants you to breastfeed your baby. Every [...] agree that breas tfeeding is best. The [place] [employer] recommends exclusive , sta [...] nd it helpful to talk to a library media specialist. They can tell you more about things such as latching your baby, positioning, milk supply and pumping and storing your breast milk. The specialists in [facility] are: Dorinda Beckham RN, IBCLC - [facility] Concepcion Werner RN, IBCLC - [facility] Department In [facility]: Keyla Hauser RN, IBCLC [phone] In [facility]: Jazlyn Coffey NP [phone] Yanely Rao, RN [phone] Further Sources for Support and Information: [facility] [place] (Bilingual [place])- [phone] [email or web address] Piedad [facility] [place]- [phone] [email or web address] We encourage our patients to either [...] a safe nursery, and find quality child life specialist if needed. Doing these things in advance [...] log into your My Chart account at [email or web address]. You can enter X471 in the "Health Library" medical center enterprise box. Not on MyChart? Review the MyChart section of your After Visit Summary for directions on jean-claude vivian to sign up. Current as of: May 06, 2017 Content Version: 11.7 0216-0534 [employer]. Care instructions adapted under license by [facility] & [facility]. If you have questions about a medical condition or this instr uction, always ask your healthcare professional. [employer] disclaims any frederic anty or liability for [...] to flu vaccine? No Prior history of Guillain-[place] syndrome? No (For patients receiving Fluarix): Allergy or sensitivity to Latex? Not applicable documented in this [facility] ounter Plan of Treatment Not on [...]
--- OUTSIDE RECORDS SUMMARY | ~2019-05-12 | XMS | Encounter Summary ---
Demographics + + + | Address | [address] | | | [place] [address] | + + + | Home Phone | | + + + | Preferred Language | Unknown | + + + | Marital Status | Single | + + + | Anabaptist Affiliation | NRP | + + + [...] | | [place] | | [place] [address] | | + + + + + | Gracie Turcios | ECON | АНДРЕЙCHARITYEL | | + + + + + Care Team Providers + +------+ + | Care Bakery Chef Name | Role | Phone | + [...] + + + | 04/30/ | | [place] | Pentopoulos, | (BS | | 2018 | | [facility] [address] | MD Leonela [address] | review) | | | | [address] | | | | | [address] [place], [place] | [place] | | | | | [address] | [address] | | | | | [phone] | [phone] | | | | | | | [...]
--- OUTSIDE RECORDS SUMMARY | ~2019-05-12 | XMS | Encounter Summary ---
Demographics + + + | Address | [address] | | | [place] [address] | + + + | Home Phone | | + + + | Preferred Language | Unknown | + + + | Marital Status | Single | + + + | Judaism Affiliation | NRP | + + + [...] | | [place] | | [place] [address] | | + + + + + | Gracie Turcios | ECON | [place] | | + + + + + Care Team Providers + +------+ + | Care Impregnator And Drier Name | Role | Phone | + [...] + + + + | 07/13/ | | [place] | | monitoring | | 2019 | | [facility] [address] | | | | | | [address] | | | | | | [address] [place], [place] | | | | | | [address] | | | | | | [phone] | | | +--------+ + + + [...] + | Blood Pressure | 126/82 | 07/13/2018 9:25 AM | | | | | PST [...] Weight | 125.2 kg (276 lb) | 07/13/2018 9:25 AM | | | | | PST | | + + + + + | Height | - | - | | + + + + + | Body Mass Index | 50.47 | 03/16/2018 3:13 PM | | | | | PDT | | + + + + + documented in this encounter Progress Notes Jordan Gonsalves RN - 07/13/2018 8:15 AM PSTNST: 23 y.o. at 38w5d weeks gesta tion. Indications for monitoring: GDM on insulin NPH 6 units in the am/12 units at bedtime, BMI, velamentous cord, polyhyramnios Glucose results reviewed by Chris Luke. No changes in insulin dosing. FHT: Baseline FHR 125, moderate variability, 15 x 15 accelerations, and one early decelera tion. TOCO: One contraction noted in 50 minutes. Strip reviewed by Chris Luke MD. Next appointment 07/15 for induction. documented in this encounter Plan of Treatment Not on filedocumented as of this encounter Procedures + +--------+ + + + | Procedure Name | Priori | Date/Time | Associated Diagnosis | Comments | | | ty | | | | + +--------+ + + + | NST | Routin | 07/13/2018 | Gestational | Results for this | [...]
--- OUTSIDE RECORDS SUMMARY | ~2019-05-12 | XMS | Encounter Summary ---
Demographics + + + | Address | [address] | | | [place] [address] | + + + | Home Phone [...] Author + + + | Author | [facility] | + + + | Organization | [facility] | + + + | Address | Unknown | + + + | Phone | Unavailable | + + + Support + + + + + | Name | Relationship | Address | Phone | + + + + + | Anderson Rose | ECON | [address] | | | [place] | | [place] [address] | | + + + + + | Gracie Turcios | ECON | АНДРЕЙCHARITYEL | | + + + + + Care Team Providers + +------+ + | Care Electric Golf Cart Repairer Name | Role | Phone | + +------+ + | Anisha Rivera | PCP | | + +------+ + Reason for Visit + + + | Reason | Comments | + + + | care | 2wk ppv | + + + Encounter Details +--------+ + + + + | Date | Type | Department | Care Team | Description | +--------+ + + + + | 07/31/ | | [facility] | Natasha Jones, | care (2wk | | 2019 | | [facility] [address] | [address] , | ppv) | | | | [address] | [address] [place], [place] | | | | | [address] [place], [place] | [address] | | | | | [address] | [phone] | | | | | [phone] | | | +--------+ + + + [...] + + + | Blood Pressure | 126/84 | 07/31/2018 10:52 AM | | | | | PST | | + + + + + | Pulse | 90 | 07/31/2018 10:52 AM | | | | | PST | | + + + + + | Temperature | 38.3 C (101 F) | 07/31/2018 10:52 AM | | | | | PST | | + + + + + | Respiratory Rate | - | - | | + + + + + | Oxygen Saturation | 97% | 07/31/2018 10:52 AM | | | | | PST [...] encounter Progress Notes Natasha Jones MD - 07/31/2018 11:15 AM PSTFormatting of this note might be different fro m the original. Note OB History Para Term AB Living 2 1 1 0 1 1 SAB TAB Ectopic Multiple Live Births 1 0 0 0 1 # Outcome Date GA Lbr Naun/2nd Weight Sex Delivery Anes PTL Lv 2 Term 07/17/18 39w2d 3.37 kg (7 lb 6.9 oz) M CS-LTranv epidural. SAMANTA 1 12/2015 Comments: Period 2 weeks late, 2 positive home tests, started bleeding w ith hcg quant of 0 Subjective Elizabet Turcios is a 23 y.o. who is 2 weeks s/p delivery presen kelvin for visit. Her was complicated by GDM on insulin, BMI 45, velamen tous cord insertion, Rh neg. Complaints: Patient doing well. Feeling pretty good. Reports minimal pain, except on rig ht side of incision. Denies constipation or problems with urination. She is still bleeding lightly. She is bottle-feeding. Reports mood is good. Wakes up 2-3 times at night to feed baby, naps during day when baby naps. Objective BP 126/84 | Pulse 90 | Temp 38.3 C (101 F) | SpO2 97% | OB Status Recent | Smoking Status Never Smoker General: happy, no acute distress and well appearing Breast: deferred CV: regular rate and rhythm without murmurs, rubs or gallops Lungs: clear to auscultation bilaterally Abdomen: abdomen soft, non-tender, no rebound and incision - clean, dry intact, steri str ips removed Extremities: no edema, warm and well-perfused and non-tender Other: None Screened for depression or prior mood disorders/blues: yes Depression: no EPDS: In the past 7 days... Able to laugh & see funny side of things: 0-as much as she always could Looked forward with enjoyment : 0-as much as she ever did Blamed self when things went wron-note very often Been anxious or worried: 2-yes, sometimes [place] scared or panicky: 1-no, not much Things getting on top: 1-no, most of the time has coped quite well So unhappy having difficulty sleepin-no, not at all [place] sad or miserable: 1-not very often So unhappy have been cryin-only occasionally Thought of harming self: 0-never TOTAL SCORE (possible depression: 10 or greater): 7 Assessment: 23 y.o. presenting for 2 week visit after delivery . Her was complicated by GDM on insulin, BMI 45, velamentous cord insertion, Rh ne g. - Recovering as expected with no e/o depression - Reviewed contraceptive options including LARC methods and patient would like to use the p atch, will prescribe at 6 week visit - Discussed GDM and need for 2hr GTT at 6-12 wks . Discussed increased risk of ty pe 2 diabetes and healthy diet and exercise to help minimize her risk. Encouraged continuing diabetic diet and daily walks until she can resume more vigorous exercise routine. - Follow up in 4 weeks. Natasha Jones MD Valorie Anthony MA - 07/31/2018 11:15 AM PSTBreast feeding:no, using formula Birthcontrol:would like to discuss options Bleeding:yes Tears: Problems using the bathroom:no Fevers:no Pap:01/07/2018, negative Pt c/o her skin being very itchy. She states that she does have a h/o eczema but this is on the tops of her hands, the inside of her thighs and abdomen. documented in this encounter Plan of Treatment Not on filedocumented as of this encounter Visit Diagnoses + + | Diagnosis | + + | care and examination - Primary | + + documented in this encounter"
--- OUTSIDE RECORDS SUMMARY | ~2019-05-12 | XMS | Encounter Summary ---
Demographics + + + | Address | [address] | | | [place] [address] | + + + | Home Phone [...] | | [place] | | [place] [address] | | + + + + + | Gracie Turcios | ECON | [place] | | + + + + + Care Team Providers + +------+ + | Care Vocal Artist Name | Role | Phone | + +------+ + | Anisha Rivera | PCP | | + +------+ + Encounter Details +--------+ + + + + | Date | Type | Department | Care Team | Description | +--------+ + + + + | 07/17/ | Procedure | [facility] | | | | 2019 | Pass | [facility] [address] | | | | | | [address] | | | | | | [place], [place] | | | | | | [address] | | | +--------+ + + + [...]
--- OUTSIDE RECORDS SUMMARY | ~2019-05-12 | XMS | Encounter Summary ---
Demographics + + + | Address | [address] | | | [place] [address] | + + + | Home Phone [...] | | [place] | | [place] [address] | | + + + + + | Garcie Turcios | ECON | [place]CHARITYEL | | + + + + + Care Team Providers + +------+ + | Care Skidder Loader Name | Role | Phone | + [...] Description | +--------+--------+ + + + | 05/11/ | Refill | [place] | Kapil Rutherford, | Refill Request | | 2017 | | [facility] [address] | CNM [address] | | | | | [address] | [address] | | | | | [address] [place], [place] | [place] | | | | | [address] | [address] | | | | | [phone] | [phone] | | | | | | | [...]
--- OUTSIDE RECORDS SUMMARY | ~2019-05-12 | XMS | Encounter Summary ---
Demographics + + + | Address | [address] | | | [place] [address] | + + + | Home Phone [...] | | Garrett | | [place] [address] | | + + + + + | Gracie Bullock | ECON | [place] | | + + + + + Care Team Providers + +------+ + | Care Cell Efficiency Supervisor Name | Role | Phone | [...] +--------+--------+ + + + + Encounter Details +--------+---------+ + + + | Date | Type | Department | Care Team | Description | +--------+---------+ + + + | 07/17/ | Surgery | [facility] | Barrera Lopez MD | urgent | | 2019 | | Medical Center [address] | [address] | | | | | E [address] | [address] [place] | | | | | [place] | [address] | | | | | [address] | [phone] | | | | | | | [...] Information for the patient's : Angel Bullock [[id number]] Weight: 3.37 kg (7 lb 6.9 oz) [...] known as: BLOOD GLUCOSE TEST Blood-Glucose Meter [facility] insulin needles (Disposable) 32 gauge x 5/32" Ndle Commonly known as: BD ULTRA-FINE RADHIKA PEN NEEDLE 4 MM X 32 G insulin NPH 100 unit/mL (3 mL) Inpn Commonly known as: HUMULIN N FLEXPEN Lancets Misc Commonly known as: WIB UNISTIK II LANCETS metoclopramide HCl 10 mg [...] To contact your provider, please call the [facility] at [phone] during daytime hours. Follow Up 2-3 days in pp care clinic 2 weeks with Natasha Jones MD Future Appointments Provider Department Dept Phone Center 07/31/2018 11:00 AM Natasha Jones [facility] [phone] [facility] Schedule the following appointment(s) when you get home Maternity Services at [facility]. Go on 07/22/2018. Specialty: Obstetrics & Gynecology Why: As scheduled, for Post Care Clinic with infant at 12:00pm Contact information [address] [facility] [address] Natasha Jones MD Discharging Provider: Natasha Jones [...] muscles while you are recovering. Ask a fa geeta member or friend for help with housework, [...] doctor if you can take an o wkk-iao-wxteoxh medicine. If you think your pain medicine [...] to Expect at Home", log into your [employer] nt at [email or web address]. You can enter [id number] in the "[employer] Library" search box. Iron-Rich Diet: Care Instructions [...] "Iron-Rich Diet: Care Instructions", log into your Socialbomb account at h [email or web address]. You can enter [id number] in the "[employer] Library" search box. Not on Socialbomb? Review the IRIt section of your After Visit Summary for directions on jean-claude park to sign up. Current as of: September 10, 2017 Content Version: 11.9 8190-4621 [employer]. Care instructions adapted under license by [facility] al[facility] [employer]. If you have questions about a medical condition or this instr uction, always ask your healthcare professional. [employer] disclaims any frederic anty or liability for [...] Encouraged to continue pumping BARRERA LOPEZ MD arrera Lopez MD - 07/2018 5:06 PM PST Note [...] Cont. Routine PP care. BARRERA LOPEZ [facility] - 06/2018 10:13 PM PSTIntrapartum Note Subjective I was called in for a prolonged decel after recurrent variable & late decelerations. Pitocin has been turned off, patient repositioned & IVF infusing. ORNAMENTAL IRON WORKER HELPER was called to assist with resuscitation. Patient is comfortable though anxious regarding current situation. Objective Temp: 37.3 C (99.1 F) (07/17/182099) Pulse: 94 (07/17/182099) Resp: 20 (07/17/182099) BP: 110/62 (07/17/182099) Contraction Quality: Mild;Moderate (07/17/182044) Contraction Frequency (min): 5-6 (07/17/182044) Contraction Duration (sec): 140-150 (07/17/182044) Dilation (cm): 5 (07/17/18 1737) Effacement (%): 75 (07/17/181549) Station: -3 (07/17/181549) [...] Blood sugar now 101. BARRERA LOPEZ MD [facility] - 06/2018 7:12 PM PSTS: Patient is now comfortable with epidural O: BP 152/83 | Pulse 70 | Temp 36.7 C (98 F) | RR 18 | Ht 1.575 m (5' 2") | Wt 125.2 kg (276 lb) | SpO2 98% | LMP 10/15/2017 | BMI 50.48 kg/(m^2) Gen: NAD [place]: Ctx every 5-6min FHR: 125/moderate variability/ + accelerations/ no decelerations A/P: Elizabet Bullock is a 23 y.o. female at 39w2d induction for GDM - FHR decelerations resolved with Pitocin off, plan 1hr break, then restart titrating Pitoc in to adequate contractions. - Place jimenez catheter now to monitor UOP closely - gHTN: Pre-e labs remain normal BARRERA LOPEZ MD Barrera Koroma MD - 07/17/2018 6:32 PM PSTFormatting of this note might be different from the germain chinmay. Intrapartum Note Subjective Patient c/o increasing pain [...] Pulse: 92 (07/17/18 0400) Resp: 20 (07/17/18 040) BP: 118/66 (07/17/18 0400) Contraction Quality: Mild (07/17/1830) [place]: Contractions every 2-3 minutes heart tones: Category [...] Pulse: 80 (07/16/18 1545) Resp: 18 (07/16/18 154) BP: 121/75 (07/16/18 1545) Contraction Quality: Mild (07/16/18 154) Contraction Frequency (min): 4-5 (07/16/18 154) Contraction Duration (sec): 90-100 (07/16/18 1545) Dilation (cm): 0 (07/16/18 1303) Effacement (%): 0 (07/16/18 1303) Station: -4 (07/16/18229) SVE: 1/long/-4/soft, jimenez placed and inflated to 40 mL FHT: baseline 130, mod variability, +accels, - decels [place]: Q 4-6min Meds: NPH 12 units last [...] 0755) Pulse: 93 (07/16/18 0857) Resp: 18 (07/16/18 0857) BP: 128/73 (07/16/18 08) Contraction Quality: Mild (07/16/18929) Contraction Frequency (min): 4-7 (07/16/18929) Contraction Duration (sec): 70-120 (07/16/18929) Dilation (cm): 0 (07/16/18229) Effacement (%): 0 (07/16/18229) Station: -4 (07/16/18229) SVE: closed/long/soft FHT: baseline 130, mod variability, +accels, - decels [place]: Q 5-6min Meds: NPH 12 units last [...] Natasha Jones MD uildNatasha MD - 07/16/2018 9:57 AM PSTIntrapartum Note Subjective Patient comfortable. Feeling contractions, but not very painful. Objective Temp: 36.8 C (98.2 F) (07/16/18 0755) Pulse: 93 (07/16/18 0857) Resp: 18 (07/16/18 0857) BP: 128/73 (07/16/18 0857) Contraction Quality: Mild (07/16/18929) Contraction Frequency (min): 4-7 (07/16/18929) Contraction Duration (sec): 70-120 (07/16/1830) Dilation (cm): 0 (07/16/18229) Effacement (%): 0 (07/16/18229) Station: -4 (07/16/18229) SVE: unchanged. FHT: baseline 130, mod variability, +accels, - decels [place]: Q 5-6min Meds: NPH 12 units last night Miso x 3 Assessment/Plan 23 y.o. at 39w1d a/f IOL 2/2 A2GDM. c/b obesity, velamentous cord inserti on. #. Labor: - Continue cervical ripening with miso, repeat exam at 12:30 and consider tony #. FWB: Cat 1, CEFM #. GDM: [...] + documented in this encounter Results MEET MONCADAPOC (07/20/2018 6:22 AM PST) + +-------+ + [...] + +---------+ + + CAP GLU,POC (07/18/2018 11:47 AM PST) + +-------+ + [...] 242 | 150 - 400 K/cu | [facility] | | | COUNT | | mm | A MEDICAL | | | | | | CENTER | | + + + + + + | MPV | 11.6 (H) | 7.5 - 11.2 fL | [facility] | | | | | | A MEDICAL | | | | | | CENTER | | + + + + + + + + | Specimen | + + | Blood - Blood | | (substance) | + + + + + | Narrative | Performed At | + + + | No reflex rules apply to this test. | [facility] | | | MEDICAL CENTER | + + + + + + + + | Performing | Address | City/State/Zipcode | Phone Number | | Organization | | | | + + + + + | [facility] | And | [place] [address] | [phone] | | [facility] | [...] Name: Elizabet Bullock MRN: | | | [id number] : 1995 Procedure Date: 07/18/2018 Surgeon: | | | BARRERA LOPEZ MD Marine Service Operator: Natasha Jones MD Preoperative | | | [...] held and consents signed prior to procedure. Infant's | | | Name: Angel Bullock Delivery [...] | + + + + + | [facility] | And | [place] [address] | [phone] | | [facility] | Streets | | | + + + + + CREATININE, URINE (07/17/2018 8:00 PM PST) + +-------+ + + + | Component | Value | Ref Range | Performed | Pathologist | | | | | At | Signature | + +-------+ + + + | CREATININE | 245.4 | 20.0 - 320.0 | [facility] | [...] | [address] | [place] [address] | [phone] | | MEDICAL CENTER | Streets | [...] | + + + + + | [facility] | And | [place] [address] | [phone] | | MEDICAL CENTER | Streets | [...] EGFR | >60 | >60 mL/min | [facility] | | | - | | | A MEDICAL | | | [place] | | | CENTER | | + +-------+ + + + | EGFR NON | >60 | >60 mL/min | [facility] | | | -TIA | | | [...] the MDRD equation recommended by the | [facility] | | National Kidney Disease Education Program. Estimated GFR | [facility] | | Interpretive Information: <60 mL/min/1.73 sq [...] | + + + + + | [facility] | And | [place] [address] | [phone] | | MEDICAL CENTER | Streets | | | + + + + + AST, PLASMA (07/17/2018 6:10 PM PST) + +-------+ + + + | Component | Value | Ref Range | Performed | Pathologist | | | | | At | Signature | + +-------+ + + + | AST(SGOT) | 14 | 10 - 41 U/L | [facility] | | | | | | [...] + + | [facility] | And | [place] [address] | [phone] | | MEDICAL CENTER | Streets | | | + + + + + UREA NITROGEN, PLASMA (07/17/2018 6:10 PM PST) + +-------+ + + + | Component | Value | Ref Range | Performed | Pathologist | | | | | At | Signature | + +-------+ + + + | BUN, PLASMA | 12 | 6 - 26 mg/dL | [facility] | | | (LAB) | | [...] | [facility] | [address] | [place] [address] | [phone] | | MEDICAL CENTER | Streets | | | + + + + + URIC ACID, PLASMA (07/17/2018 6:10 PM PST) + +-------+ + + + | Component | Value | Ref Range | Performed | Pathologist | | | | | At | Signature | + +-------+ + + + | URIC ACID, | 4.5 | 2.4 - 5.7 mg/dL | [facility] | | | PLASMA | [...] | [facility] | And | [place] [address] | [phone] | | MEDICAL CENTER | Streets | [...] + +---------+ + + CAP GLU,POC (07/16/2018 8:04 PM PST) + +-------+ + [...] + +---------+ + + CAP DYAN MONCADA (07/16/2018 1:43 PM PST) + +-------+ + [...] PROTEIN/CRE | 0.12 | <0.16 mg/mg | [facility] | | [...] + + | [facility] | [address] [place] | [place] [address] | [phone] | | MEDICAL CENTER | Streets | [...] | + + + + + | [facility] | And | [place] [address] | [phone] | | MEDICAL CENTER | Streets | [...] BLOOD BANK | and | [place] [address] | | | | Streets | | [...] | + + + + + | [facility] | And [place] | [place] [address] | [phone] | | [facility] | [...] [facility] | and | [place] [address] | | | | Streets | | [...] + | [facility] | and [place] | [place] [address] | | | | Streets | | [...] 6.9 | 5.8 - 8.5 g/dL | [facility] | | | PROTEIN, | | | [...] | | A MEDICAL | | | [facility] | | | CENTER | | + +---------+ + + + | EGFR NON | >60 | >60 mL/min | [facility] | | | -TIA | | | A MEDICAL | | [facility] | | | CENTER | | + +---------+ + + + | ANION GAP | 14 | 7 - 16 mmol/L | [facility] | | | | | | A MEDICAL | | | | | | CENTER | | + +---------+ + + + | BUN/CREATIN | 24 | 6 - 20 | [facility] | | | INE RATIO | | [...] the MDRD equation recommended by the | [facility] | | National Kidney Disease Education Program. Estimated GFR | [facility] | | Interpretive Information: <60 mL/min/1.73 sq [...] + + | [facility] | And | [place] [address] | [phone] | | [facility] | Streets | | | + + + + + documented in this encounter Visit Diagnoses Not on filedocumented in this encounter Administered Medications + +--------+---------+------+------+------+ | Medication Order | MAR | Action | Dose | Rate | Site | | | Action | Date | | | | + +--------+---------+------+------+------+ + +---+ | dextrose 50 % in water IV 25 mL | | | 25 mL, intravenous, NEEDED, | | | Starting Fri07/17/18 at 1908, | | | Until Fri07/20/18 [...] AT BEDTIME NEEDED, | | | Starting 07/15/18 at 1959, | | | Until 07/20/18 at 1815, | | | insomnia | [...] | | | 07/18/18 at 0043, Until 07/20/18 | | | | | | | [...] | | | | + +-------+ +---------+---+--------+ + +---+ | | | + +---+ | magnesium hydroxide (MILK OF | | | JENNIFERESIA) suspension 30 mL 30 | | | [...] + +---+ + +-------+ + +---+---+ | Multivits,Ca,Ppxjgouk-Hxsp-YL | Given | 07/20/19 | 1 tablet [...] +-------+---+---+ +---+---+ | | | +---+---+ + +---------+ [...] | | | + +---------+ +-------+-------+---+ + +---+ | | | + +---+ [...]
--- OUTSIDE RECORDS SUMMARY | ~2019-05-12 | XMS | Encounter Summary ---
Demographics + + + | Address | [address] | | | [place] [address] | + + + | Home Phone [...] | | Garrett | | [place] [address] | | + + + + + | Gracie Turcios | ECON | [place] | | + + + + + Care Team Providers + +------+ + | Care Power Brake Rebuilder Name | Role | Phone | + [...] + + | 07/13/ | Telephone | [facility] | Natasha Jones, | Other ([facility]) | | 2019 | | [facility] [address] | MD [address], | | | | | [address] | [address] [place], [place] | | | | | [address] [place], [place] | [address] | | | | | [address] | [phone] | | | | | [phone] | | | +--------+ + + + [...]
--- OUTSIDE RECORDS SUMMARY | ~2019-05-12 | XMS | Encounter Summary ---
Demographics + + + | Address | [address] | | | [place] [address] | + + + | Home Phone [...] | | Garrett | | [place] [address] | | + + + + + | Gracie Turcios | ECON | [place] | | + + + + + Care Team Providers + +------+ + | Care Fabricating Machine Operator Name | Role | Phone [...] + + | 05/21/ | Telephone | [facility] | Natasha Jones, | Blood Glucose Level | | 2017 | | [facility] [place] | [address] | | | | | [address] | [address] [place], [place] | | | | | [address] [place], [place] | [address] | | | | | [address] | [phone] | | | | | [phone] | | | +--------+ + + + [...]
--- OUTSIDE RECORDS SUMMARY | ~2019-05-12 | XMS | Encounter Summary ---
Demographics + + + | Address | [address] | | | [place] [address] | + + + | Home Phone [...] | | Garrett | | [place] [address] | | + + + + + | Gracie Turcios | ECON | [place] | | + + + + + Care Team Providers + +------+ + | Care Supervisor Cloth Winding Name | Role | Phone | + [...] + + + | 04/23/ | | [place] | | Obstetric US Scan | | 2018 | | [facility] [address] | | | | | | [facility] | | | | | | [address] [place], [place] | | | | | | [address] | | | | | | [phone] | | | +--------+ + + + [...] | | in 3-4 weeks. Performed by commercial technician. Type of ultrasound: | | | [...]
--- OUTSIDE RECORDS SUMMARY | ~2019-05-12 | XMS | Encounter Summary ---
Demographics + + + | Address | [address] | | | [place] [address] | + + + | Home Phone [...] | | Garrett | | [place] [address] | | + + + + + | Gracie Turcios | ECON | [place] | | + + + + + Care Team Providers + +------+ + | Care Antisubmarine Weapons Officer Name | Role | Phone | [...] | | | | | | [place] [address] | | | +--------+ + + + [...]
--- OUTSIDE RECORDS SUMMARY | ~2019-05-12 | XMS | Encounter Summary ---
Demographics + + + | Address | [address] | | | [place] [address] | + + + | Home Phone [...] | | Garrett | | [place] [address] | | + + + + + | Gracie Turcios | ECON | [place] | | + + + + + Care Team Providers + +------+ + | Care Fruit Shipper Name | Role | Phone | + [...] + + + | 07/02/ | | [place] | Royal Lopez MD | | | 2019 | | [facility] [address] | [address] | | | | | [address] | [address] [place], [place] | | | | | [address] [place], [place] | [address] | | | | | [address] | [phone] | | | | | [phone] | | | +--------+ + + + [...]
--- OUTSIDE RECORDS SUMMARY | ~2019-05-12 | XMS | Encounter Summary ---
Demographics + + + | Address | [address] | | | [place] [address] | + + + | Home Phone [...] | | Garrett | | [place] [address] | | + + + + + | Gracie Turcios | ECON | [place] | | + + + + + Care Team Providers + +------+ + | Care Reflexologist Name | Role | Phone | + +------+ + | Anisha Rivera | PCP | | + +------+ + Encounter Details +--------+ + + + + | Date | Type | Department | Care Team | Description | +--------+ + + + + | 04/19/ | Hospital | Maternity Services | Kapil Rutherford, | | | 2018 - | Encounter | at [facility] | CNM [address] | | | | | [address] | [address] | | | 04/20/ | | [place], [place] | [place], [place] | | | 2017 | | [address] | [address] | | | | | [phone] | [phone] | | | | | | | | | | | | Pentopoulos, | | | | | | MD Heath [address] | | | | | | | | | | | | [place], [place] | | | | | | [address] | | | | | | [phone] | | | | | | | [...] + + + | Blood Pressure | 120/68 | 04/20/2018 1:15 AM | | | | | PST | | + + + + + | Pulse | 66 | 04/20/2018 1:15 AM | | | | | PST | | + + + + + | Temperature | 37.1 C (98.7 F) | 04/20/2018 1:15 AM | | | | | PST | | + + + + + | Respiratory Rate | 18 | 04/20/2018 1:15 AM | | | | | PST | | + + + + + | Oxygen Saturation | 99% | 04/19/2018 9:45 PM | | | | | PST [...] + documented in this encounter Discharge Instructions AttachmentsThe following attachments cannot be sent through Care Everywhere.: When to Call (After 20 Weeks): General Info (Nigerien)documented in this encounter Progress Notes Heath Valenzuela MD - 04/20/2018 1:25 AM PSTOB Triage Note On 04/19/2018, patient presented to First Impressions for cramping. NST reactive. Patient had 1 variable deceleration during monitoring. She was monitored for an additional hour and had no further variables. Vital signs within normal limits Uterine contractions none Patient discharged in stable condition. HEATH VALENZUELA MD 11:1 9 AM PSTdocumented in this encounter Plan of Treatment Not on filedocumented as of this encounter Procedures + +--------+ + + + | Procedure Name | Priori | Date/Time | Associated Diagnosis | Comments | | | ty | | | | + +--------+ + + + | UA, DIPSTICK W/ | Urgent | 04/19/2018 | | Results for this | | REFLEX | | 10:25 PM | | procedure are in the | | | | PST | | results section. | + +--------+ + + + | URINE, MICROSCOPIC | Urgent | 04/19/2018 | | Results for this | | EXAM | | 10:25 PM | | procedure are in the | | | | PST | | results section. | + +--------+ + + + documented in this encounter Results URINE, MICROSCOPIC EXAM (04/19/2018 10:25 PM PST) + + + + + + | Component | Value | Ref Range | Performed | Pathologist | | | | | At | Signature | + + + + + + | RED CELLS | 0-3 | Neg, 0-3 /hpf | [facility] | | | | [...] [facility] | And | [place] [address] | [phone] | | [facility] [place] | Streets | | | + + + + + UA, NILSONICK W/ REFLEX (04/19/2018 10:25 PM PST) + + + + + [...] + + + | PH (URINE) | 6.5 | 5.0 - 8.5 | [facility] | | | | | | A MEDICAL | | | | | | CENTER | | + + + + + + | PROTEIN, | Trace | Negative, Trace | [facility] | | [...] + + + + | KETONES | Negative | Negative | [facility] | | | | | | A MEDICAL | | | | | | CENTER | | + + + + + + | SPECIFIC | 1.026 | 1.005 - 1.030 | [facility] | [...] | + + + + + | [facility] | And | [place] [address] | [phone] | | MEDICAL CENTER | Street | | | + + + + + documented in this encounter Visit Diagnoses Not on filedocumented in this encounter"
--- OUTSIDE RECORDS SUMMARY | ~2019-05-12 | XMS | Encounter Summary ---
Demographics + + + | Address | [address] | | | [place] [address] | + + + | Home Phone [...] | | Garrett | | [place] [address] | | + + + + + | Gracie Turcios | ECON | [place] | | + + + + + Care Team Providers + +------+ + | Care Dumping Machine Operator Name | Role | Phone [...] + + + | 12/10/ | | [place] | Pentopoulos, | Ultrasound | | 2018 | | [facility] [address] | MD Leonela [address] | | | | | [address] | [address] | | | | | [address] [place], [place] | [place], [place] | | | | | [address] | [address] | | | | | [phone] | [phone] | | | | | | | [...] from the original. Initial Visit Welcome to [facility]! This is the first of [...] my provider? Have you signed up for Fonmatch ? It s the best way to communicate with us for your non-urgent needs. Head to this address to sign up: [email or web address] You will need the activation code you were given at your first visit, your medical record n umber, and your date of . The activation codes after 45 days. If you need a new one please ask any of our lead front end developer staff or give us a call and we can provide over the milan ne! We ll try hard to answer your messages within 2-3 business days. Our main phone iris cornejo is [phone]. The phone lines operate from 8:00am-5:00pm. If [...] take a second look at our Plate; righTune Blue Print that you received at your [...] such as orange juice, cereals, and breads. [place]-3 Fatty Acids Polyunsaturated fatty acids of the [...] protein. Get a healthy cookie or cracker (Die Hardener Yfn dariel has a manolo snap cooki [...] bracelet that utilizes acupressure theory from [facility] [employer] . These bracelets have an acupressure [...] of our [facility] Counselors. Some women are at a higher [...] or present disease s, in particular- rubella (australian measles), varicella (chicken pox), syphilis, HIV, and [...] doctor about how to use it safely. [place] with morning sickness Sip small amounts of [...] Your : Care Instructions", log into your [employer] account at [email or web address]. You can enter G112 in the "Health Library" [employer]FluTrends [employer] box. Not on Fonmatch? Review the RedHelpert section of your After Visit Summary for directions on jean-claude park to sign up. Current as of: August 29, 2016 Content Version: 11.5 2896-3226 [employer]. Care instructions adapted under license by [facility]. If you have questions about a medical condition or this instr uction, always ask your healthcare professional. [employer] disclaims any frederic anty or liability for [...] pt desires. Completed and reviewed by Leonela uLke MD on 12/09/17 documented in th is [...] + + documented in this encounter Results [facility] OB TRANSVAG[facility]AL REAL TIME (12/10/2017 10:01 AM [...]
--- OUTSIDE RECORDS SUMMARY | ~2019-05-12 | XMS | Encounter Summary ---
Demographics + + + | Address | [address] | | | [place] [address] | + + + | Home Phone [...] | | Garrett | | [place] [address] | | + + + + + | Gracie Turcios | ECON | [place] | | + + + + + Care Team Providers + +------+ + | Care Medical Consultant Name | Role | Phone | + +------+ + | Anisha Rivera | PCP | | + +------+ + Encounter Details +--------+ + + + + | Date | Type | Department | Care Team | Description | +--------+ + + + + | 06/13/ | Technician Assistant | [facility] | Natasha Jones, | | | 2018 | | [facility] [address] | [address] | | | | | [address] [place], [place] | | | | | [address] [place], [place] | [address] | | | | | [address] | [phone] | | | | | [phone] | | | +--------+ + + + [...]
--- OUTSIDE RECORDS SUMMARY | ~2019-05-12 | XMS | Encounter Summary ---
Demographics + + + | Address | [address] | | | [place] [address] | + + + | Home Phone [...] | | [place] | | [place] [address] | | + + + + + | Gracie Turcios | ECON | [place] | | + + + + + Care Team Providers + +------+ + | Care Products Mechanical Design Engineer Name | Role | Phone | + +------+ + | Anisha Rivera | PCP | | + +------+ + Encounter Details +--------+------+ + + + | Date | Type | Department | Care Team | Description | +--------+------+ + + + | 06/12/ | Lab | Laboratory at | | Supervision of high | | 2018 | | [facility] | | risk in | | | | Center [address] | | third trimester | | | | [place] | | | | | | [address] | | | +--------+------+ + + + [...] reflex rules apply to this test. | [facility] | | | [facility]ICAL [facility]ENTER | + + + + + + + + | Performing | Address | City/State/Zipcode | Phone Number | | Organization | | | | + + + + + | [facility] | [address] | [place] [address] | [phone] | | [facility] | Streets | | | + + [...] + | [facility] | [address] | [place] [address] | | | | Streets | | | + + + + + documented in this encounter Visit Diagnoses + + | Diagnosis | + + | Supervision of high risk in third trimester Unspecified high-risk | + + documented in this encounter"
--- OUTSIDE RECORDS SUMMARY | ~2019-05-12 | XMS | Encounter Summary ---
Demographics + + + | Address | [address] | | | [place] [address] | + + + | Home Phone | | + + + | Preferred Language | Unknown | + + + | Marital Status | Single | + + + | Evangelical Affiliation | NRP | + + + [...] | | [place] | | [place] [address] | | + + + + + | Gracie Turcios | ECON | [place] | | + + + + + Care Team Providers + +------+ + | Care Therapeutic Program Worker Name | Role | Phone | [...] | | | mellitus | , | [address] | | | | | (GDM) in | [address] | [place], | | | | | first | [place], [place] | [place] [address] | | | | | trimester, | [address] | Phone: | | | | | gestational | Phone: | [phone] | | | | | diabetes | [phone] | Fax: | | | | | method of | Fax: | [phone] | | | | | control | [phone] | | | | | | unspecified [...] + + | 01/15/ | Telephone | [facility] [place] | Natasha Jones, | Lab Results (GTT) | | 2018 | | [facility] | [address], | | | | | [address] [place], [place] | | | | | [address] [place], [place] | [address] | | | | | [address] | [phone] | | | | | [phone] | | | +--------+ + + + [...]
--- OUTSIDE RECORDS SUMMARY | ~2019-05-12 | XMS | Encounter Summary ---
Demographics + + + | Address | [address] | | | [place] [address] | + + + | Home Phone | | + + + | Preferred Language | Unknown | + + + | Marital Status | Single | + + + | Buddhism Affiliation | NRP | + + + [...] | | Garrett | | [place] [address] | | + + + + + | Gracie Turcios | ECON | [place] | | + + + + + Care Team Providers + +------+ + | Care Manager Risk Management Name | Role | Phone | + [...] | Visit | Medicine [address] | TYPESETTER PERFORATOR OPERATOR [address] | Dx); | | | | [address] [place], | [place], [place] | depression; | | | | [place] [address] | [address] | control counseling | | | | [phone] | [phone] | | | | | | | [...] encounter Patient Instructions Patient Instructions Anisha Rivera, TYPESETTER PERFORATOR OPERATOR - 12/22/2018 2:00 PM PDTFormatting of this [...] before you use any other medicines, including yvml-gef-khvpxef me dicines, vitamins, herbal products, and supplements. [...] Control Pills: Care Instructions", log into your [employer] account at [email or web address]. You can enter Z218 in the "Health Library" sear box. Not on MyChart? Review the MyChart section of your After Visit Summary for directions on [place] to sign up. Current as of: February 18, 2018 Content Version: 12.1 5230-8812 [employer]. Care instructions adapted under license by [facility] [place]. If you have questions about a medical condition or this instr uction, always ask your healthcare professional. [employer] disclaims any frederic anty or liability for [...] never shaken the baby. 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 RTC 3 months Anisha GIBSON, DNP [facility] Family [facility] Family Medicine P: [phone] F: [phone] documented in this encounter Plan of Treatment Not on filedocumented as of this encounter Results HEMOGLOBIN A1C, BLOOD (12/22/2018 2:59 PM PDT) + +-------+ + + + | Component | Value | Ref Range | Performed | Pathologist | | | | | At | Signature | + +-------+ + + + | HEMOGLOBIN | 5.9 | % | [facility] | | | A1C | | | A MEDICAL | | | | | | CENTER | | + +-------+ + + + | ESTIMATED | 123 | mg/dL | [facility] | | | [place] | | | A MEDICAL | | | GLUCOSE | | | CENTER | | + +-------+ + + + + + | Specimen | + + | Blood - Blood | | (substance) | + + + + + | Narrative | Performed At | + + + | Glycohemoglobin Recommended Diabetic Ranges per DCCT & ADA: | [facility] | | Normal Range: <6% [facility] | | Good Control: <7% | | | Additional action suggested: >8% Non-Diabetic | | | Ranges: 4-6% [facility] Glycohemoglobin | | | Diabetic Ranges: Normal Range: | | | 4.0-6.0% Good Control: | | | 6.0-8.0% Poor Control: | | | >8.0% | | + + + + + + + + | Performing | Address | City/State/Zipcode | Phone Number | | Organization | | | | + + + + + | [facility] | [address] [place] | [place] [address] | [phone] | | [facility] | Streets | | | + + [...]
--- OUTSIDE RECORDS SUMMARY | ~2019-05-12 | XMS | Encounter Summary ---
Demographics + + + | Address | [address] | | | [place] [address] | + + + | Home Phone [...] | | [place] | | [place] [address] | | + + + + + | Gracie Turcios | ECON | [place] | | + + + + + Care Team Providers + +------+ + | Care Engineering Instructor Name | Role | Phone | + [...] + + + | 06/15/ | | [place] | | monitoring | | 2018 | | [facility] [address] | | | | | | [address] [facility] | | | | | | [address] [place], [place] | | | | | | [address] | | | | | | [phone] | | | +--------+ + + + [...]
--- OUTSIDE RECORDS SUMMARY | ~2019-05-12 | XMS | Encounter Summary ---
Demographics + + + | Address | [address] | | | [place] [address] | + + + | Home Phone [...] | Anderson Rose | ECON | [address] | | | [place] | | [place] [address] | | + + + + + | Gracie Turcios | ECON | [place] | | + + + + + Care Team Providers + +------+ + | Care Toll Patrolman Name | Role | Phone | + +------+ + | Anisha Rivera | PCP | | + +------+ + Encounter Details +--------+--------+ + + + | Date | Type | Department | Care Team | Description | +--------+--------+ + + + | 12/22/ | Travel | | | | | [...]
--- OUTSIDE RECORDS SUMMARY | ~2019-05-12 | XMS | Encounter Summary ---
Demographics + + + | Address | [address] | | | [place] [address] | + + + | Home Phone [...] Author + + + | Author | [facility] | + + + | Organization | [facility] | + + + | Address | Unknown | + + + | Phone | Unavailable | + + + Support + + + + + | Name | Relationship | Address | Phone | + + + + + | Anderson Rose | ECON | [address] | | | [place] | | [place] [address] | | + + + + + | Gracie Turcios | ECON | [place] | | + + + + + Care Team Providers + +------+ + | Care Installer Inspector Final Name | Role | Phone | + [...] + + + | 07/06/ | | [place] | | monitoring | | 2019 | | [facility] [address] | | | | | | [address] [facility] | | | | | | [address] [place], [place] | | | | | | [address] | | | | | | [phone] | | | +--------+ + + + [...]
--- OUTSIDE RECORDS SUMMARY | ~2019-05-12 | XMS | Encounter Summary ---
Demographics + + + | Address | [address] | | | [place] [address] | + + + | Home Phone [...] | | [place] | | [place] [address] | | + + + + + | Gracie Turcios | ECON | [place] | | + + + + + Care Team Providers + +------+ + | Care Photo Printer Name | Role | Phone | + +------+ + | Anisha Rivera | PCP | | + +------+ + Encounter Details +--------+------+ + + + | Date | Type | Department | Care Team | Description | +--------+------+ + + + | 02/04/ | Lab | Laboratory at | | High-risk | | 2017 | | [facility] | | in first trimester | | | | Center [address] | | | | | | [place] | | | | | | [address] | | | +--------+------+ + + + [...] [facility] | | Test performed by: | [facility] | | [facility] | | | [address] | | | [place] [address] | | + + + + + + + + | Performing | Address | City/State/Zipcode | Phone Number | | Organization | | | | + + + + + | [facility] | | [place] [address] | [phone] | | [facility] | Streets | | | + + + + + documented in this encounter Visit Diagnoses + + | Diagnosis | + + | High-risk in first trimester | + + documented in this encounter"
--- OUTSIDE RECORDS SUMMARY | ~2019-05-12 | XMS | Encounter Summary ---
Demographics + + + | Address | [address] | | | [place] [address] | + + + | Home Phone [...] Author + + + | Author | [facility] | + + + | Organization | [facility] | + + + | Address | Unknown | + + + | Phone | Unavailable | + + + Support + + + + + | Name | Relationship | Address | Phone | + + + + + | Anderson Rose | ECON | [address] | | | [place] | | [place] [address] | | + + + + + | Gracie Bullock | ECON | [place] | | + + + + + Care Team Providers + +------+ + | Care Band Saw Marker Name | Role | Phone | + +------+ + | Anisha Rivera | PCP | | + +------+ + Encounter Details +--------+ + + + + | Date | Type | Department | Care Team | Description | +--------+ + + + + | 03/13/ | Outside | [facility] | [facility], | | | 2018 | Referral | Department | [facility] | | | | Order | | [facility] | | | | | | [address] | | | | | | [address] | | | | | | [address] [place], | | | | | | [place] [address] | | | | | | [phone] | | | | | | | [...] Performed At | + + + | [facility] | [facility] | | OBSTETRICAL ULTRASOUND REPORT | RADIOLOGY OB US | | | | | Pat. Name: FRANK BULLOCK Pat. No: [id number] | | | Study Date: 03/16/2018 1:45pm , Age: 13 1995, 22 | | | Pregnancies: 2, Para 0010 LMP: Unknown GA by | | | Last: 21w5d GA Selected: 21w5d (From ) ADELINE: | | | 07/22/2018 Referring MD: FIORELLA RENO [facility] Manager: DESTINI, | | | [facility] CPT4: [id number] Hist/Ind: | | | Incomplete anatomy scan, [...] | | | ! x ! Cardiac [place]/! ! ! | | | ! x [...] ask | | | for the perinatologist home care consultant. [phone] or [phone] | | | [facility] DE LA CRUZ [...] - 03/16/2018 4:00 PM PDT | | [facility] OBSTETRICAL ULTRASOUND | | REPORT Pat. Name: | | FRANK BULLOCK Gee. No: [id number] Date: 03/16/2018 1:45pmDOB, | | Age: 13 1995, 22Pregnancies: 2, Para 0010LMP: UnknownGA by | | Last: Selected: wd (From )ADELINE: 07/22/2018Referring MD: | | Sissy RENOographer: JESSICA GEORGES BS [facility] RVTCPT4: [id number]/Ind: | | Incomplete anatomy scan, possible | [...] ! ! ! x | | !Cardiac [place]/! ! ! ! x !Four Chamber ! [...] and ask for the | | perinatologist home care consultant. [phone] or [phone], ROYA, | | <Electronic Signature> 03/16/2018 04:00pmI [...] ask for the perinatologist on | |call. [phone] or [phone] | |MILTON DE LA CRUZ MD | [...]
--- OUTSIDE RECORDS SUMMARY | ~2019-05-12 | XMS | Clinical Summary ---
Demographics + + + | Address | [address] | | | [place] [address] | + + + | Home Phone [...] Author + + + | Author | RHONDA Pitts | + + + | Organization | [facility] | + + + | Address | Unknown | + + + | Phone | Unavailable | + + + Support + + + + + | Name | Relationship | Address | Phone | + + + + + | Anderson Rose | ECON | [address] | | | [place] | | [place] [address] | | + + + + + | Gracie Turcios | ECON | [place] | | + + + + + Care Team Providers + +------+ + | Care Respiratory Technician Name | Role | Phone | + +------+ + | Anisha Rivera | PCP | | + +------+ + Source Comments [facility] is fully live on both EpicCare Ambulatory and EpicCare InPatient.Formerly [facility], [facility] & [facility] Allergies + + + + + + | Active Allergy | Reactions | Severity | Noted | Comments | | | | | Date | | + + + + + + | Lactose | Stomach Upset | | 10/01/19 | | | | | | 17 | | + + + + + + | Peanut | Anaphylaxis | High | 10/01/19 | Avoids all nuts | | | | | 17 | | + + + + + + | Penicillin | Anaphylaxis, Hives | High | 01/06/20 | All brothers have | | | | | 18 | had this reaction to | | | | | | penicillin so | | | | | | patient does not | | | | | | take this medication | + + + + + + Medications + + + +---------+------+------+-------+ | Medication | Sig | Dispensed | Refills | Star | End | Statu | | | | | | t | Date | s | | | | | | Date | | | + + + +---------+------+------+-------+ | ethinyl | Apply 1 patch to | 3 patch | 11 | 03/1 | | Activ | | estradiol-norelgestr | skin every seven | | | 4/20 | | e | | omin 150-35 mcg/24 | days. Apply 1 patch | | | 19 | | | | hr transdermal patch | every 7 days for 3 | | | | | | | weekly | weeks, then take 7 | | | | | | | | days off, then apply | | | | | | | | a new patch | | | | | | + + + +---------+------+------+-------+ | | Take 1 tablet by | 3 | 1 | 07/0 | | Activ | | norgestimate-ethinyl | mouth once daily. | Package | | 03/05 | | e | | estradiol | | | | 19 | | | | (SPRINTEC) 0.25-35 | | | | | | | | mg-mcg oral tablet | | | | | | | + + + +---------+------+------+-------+ Active Problems + + + | Problem | Noted Date | + + + | URI with cough and congestion | 09/28/2018 | + + + | Acute non-recurrent maxillary sinusitis | 09/28/2018 | + + + | Velamentous insertion of umbilical cord in third trimester | 04/09/2018 | + + + + + | Overview: (X) Serial growth u/s Q 4-6 weeks starting at | | 26-28w(x) NST 1-2 x/week at 32w | + + + + + | Insulin controlled gestational diabetes mellitus (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 | 01/15/2018 | | trimester | | + + + + + | Overview: Current med regimen/date: Insulin 10 units at | | bedtime[X] Referral to Diabetes: attended one session; has appt | | 05/14 for f/u Plan: [X] Growth US q4w at 24w or at diagnosis | | (also for velamentous cord insertion)[X] JUANI weekly at 32w[X] NST | | biweekly at 32w[ ] IOL 39 weeks; sooner if sub-optimal BS | | controlNOTES: 01/15: monitor and supplies ordered02/04/18: Stopped | | testing for the last couple of weeks. Reviewed importance of | | testing for remainder of her . Plan to have her return | | in 1-2 wks with RN for blood sugar review. She has attended | | diabetes education and has made diet changes. mp03/05/18: 3 | | readings available for review and normal. She states she can't | | remember to test. Strategies to help her remember discussed. F/U | | 1 week for blood sugar review. mp04/07/18: She is testing more | | often but still limited. 4/7 fasting elevated and only 1 elevated | | 1hr PP. She has not changed her diet and is eating a high carb | | diet. She has attended diabetic education x1. Has not had follow | | up. She would like to control with diet and therefore discussed | | diet changes and will have her follow up in 1 week to review. | | Discussed starting metformin at HS if fasting remain elevated at | | 50% of readings. Request made for statistical developer follow up. mp04/15/18 | | = 100% Fasting blood sugars are elevated. Patient declines | | starting insulin as she does not like needles. She has not | | changed her diet significantly. She has not yet made an | | appointment to see the dietitian. Encourage patient to start | | walking for 30 minutes in the evening. Started on metformin 500 | | mg.04/23/18 Fastings 88-95 on metformin . She has had some | | elevated post prandials but has not checked in the last 2 days. | | Reinforce the importance of checking her sugars 4 times a day. | | Follow-up in 1 week.AP106/30/17 - fastings 86-105. Postprandial | | 106 to 158 (only 1 elevated value). Follow-up in 2 weeks | | 05/14/18- fastings 88-105 (04/28 abnl). Postprandial 80-178 | | (11/10 abnl). Recommend increasing PM metformin to 1000 mg. RN to | | call in 1 week for CBG review. If still elevated plan to start | | insulin at night. Reviewed importance of checking CBGs QID. | | Scheduled testing in 2 weeks. RG06/01/18 Pt started on | | insulin 10 units at bedtime.06/08/18: Increase NPH to 12 units at | | bedtime. Sjk/AP1: Start 6 units NPH in the morning and | | continue 12 units NPH at bedtime. Sjk/AB06/25/18 Her blood | | sugars are under better control. One elevated fasting since | | nighttime insulin was increased. She has had 3 elevated post | | prandials, all after dinner. No change to insulin. AP | + + + + + | BMI 45.0-49.9, adult | 01/05/2018 | + + + + + | Overview: Formatting of this note might be different from the | | original.Pre- BMI: 45.9Baseline testing:[X] A1C: Lab | | Results Component Value Date A1C 5.7 01/05/2018 [x ] Pre-E | | panel[x ] Consult to Adult Nutrition:[x ] ASA prophylaxisPlan: | | testing per GDM and velamentous cord guidelinesNOTES: | | 01/07/18: HgA1c 5.7, instructed on completing early 1hr gtt today. | | Baseline PreEclampsia labs normal. 24 hour urine protein is 93. | | Reviewed ASA recommendations and this was ordered. Instructed to | | start taking daily. She has declined nutrition consult. | | Encouraged exercise and healthy diet, weight gain recommendations | | reviewed. Plan for Growth u/s at 30 & 36w, weekly NST at 36w. mp | |Plan: testing per GDM and velamentous cord guidelines | | | |NOTES: | |01/07/18: HgA1c 5.7, instructed on completing early 1hr gtt today. Baseline PreEclampsia lab s normal. 24 hour urine protein is 93. Reviewed ASA recommendations and this was ordered. In structed to start | | taking daily. She has declined nutrition consult. Encouraged exercise and healthy diet, we ight gain recommendations reviewed. Plan for Growth u/s at 30 & 36w, weekly NST at 36w. mp | + + + + + | High-risk in third trimester | 12/01/2017 | + + + + + | Overview: Formatting of this note might be different from the | | original.FOB: 8-10 WEEKS (Intake & First tri U/S): | | Labs: [X] Rh: Lab Results Component Value Date ABO A 01/05/2018 | | RH Negative 01/05/2018 [X] Antibody screen: neg[X] GC/CT: | | CHLAMYDIA PROBE (no units) Date Value 01/05/2018 NOT DETECTED | | GONOCOCCUS PROBE (no units) Date Value 01/05/2018 NOT DETECTED | | [X] Pap: 01/07/18: neg[X] Urine Cx: Mixed jhhly20-23 WEEKS | | (Nuchal/Exam)Carrier Screening: [ x] CF-declines [ ] SMA | | -undecidedGenetic Screening: [ x] SequentialScreen: Negative[X] | | Nuchal U/S: mm[X] Flu Shot (Feb-May) 05/14/1816-18 WEEKS[X] | | 2nd Sequential Screen [ ] MSAFP [ ] [id number] WEEKS[X] Ultrasound | | 19-20 weeks: SEX: Male [X] Completion anatomy: [X] Birthing | | classes: info given 05/14/1826-28 WEEKS[x] Tdap (27-36 wks): [x ] | | Rhogam (28 wks): Given 06/12/2018[ ] 1hr gtt at 24-28wks: [x | | ] 3hr gtt: GDM[x ] CBC and antibody screen (if Rh negative): | | Drawn 06/12/201830 WEEKS[ ] Repeat surgical booking?[ ] | | Sterilization consent:36 WEEKS[x] GBS at 35wks:negative[ ] | | ppBCM: Desires depo vs IUD[X] Breast Pump prescription: given | | 06/11/18ULTRASOUNDS[X] Growth or JUANI Reason: weekly 2/2 | | GDMNSTFrequency: twice weekly Reason: GDM | | | |[X] Pap: 01/07/18: neg | |[X] Urine Cx: Mixed luis | | | |12-13 WEEKS (Nuchal/Exam) | |Carrier Screening: [ x] CF-declines [ ] SMA -undecided | |Genetic Screening: [ x] SequentialScreen: Negative | |[X] Nuchal U/S: mm | |[X] Flu Shot (Feb-May) 05/14/18 | | | |16-18 WEEKS | |[X] 2nd Sequential Screen [ ] MSAFP [ ] AFP4 | | | |20 WEEKS | |[X] Ultrasound 19-20 weeks: SEX: Male | | [X] Completion anatomy: | |[X] Birthing classes: info given 05/14/18 | | | |26-28 WEEKS | |[x] Tdap (27-36 wks): | |[x ] Rhogam (28 wks): Given 06/12/2018 | |[ ] 1hr gtt at 24-28wks: [x ] 3hr gtt: GDM | |[x ] CBC and antibody screen (if Rh negative): Drawn 06/12/2018 | | | |30 WEEKS | |[ ] Repeat surgical booking? | |[ ] Sterilization consent: | | | |36 WEEKS | |[x] GBS at 35wks:negative | |[ ] ppBCM: Desires depo vs IUD | |[X] Breast Pump prescription: given 06/11/18 | | | |ULTRASOUNDS | |[X] Growth or JUANI Reason: weekly 2/2 GDM | | | |NST | |Frequency: twice weekly Reason: GDM | + + Immunizations + + + + | Name | Administration Dates | Next Due | + + + + | DTaP | 05/06/2001, 09/20/1997, 1996, | | | | 1996, 1996 | | + + + + | HPV, Quadrivalent | 11/07/2010, 08/23/2010 | | + + + + | HepA, NOS | 08/23/2010 | | + + + + | HepB, NOS | 04/20/2006, 1996, 1996, | | | | 1996 | | + + + + | Hib-HbOC | 09/20/1997, 1996, 1996, | | | | 1996 | | + + + + | Hpv 9 | 10/27/2018 | | + + + + | Influenza, | 05/14/2018 | | | injectable, | | | | quadrivalent, | | | | preservative free | | | | (IIV4) | | | + + + + | MCV4P | 08/23/2010 | | + + + + | MMR | 05/06/2001, 09/20/1997 | | + + + + | VINCENT Mendoza | 05/06/2001 | | + + + + | Polio-Oral | 1996, 1996, 1996 | | + + + + | Rho D Immune | 06/12/2018 | | | Globulin | | | + + + + | Tdap | 04/30/2018, 02/07/2009 | | + + + + | Varicella | 08/23/2010, 09/20/1997 | | + + + + | influenza, | 08/23/2010 | | | unspecified | | | | formulation | | | + + + + Family History + + +------+ + | Medical History | Relation | Name | Comments | + + +------+ + | Other | Brother | | benign tumor in knee | + + +------+ + | Psychiatry | Brother | | ADHD | + + +------+ + | Cancer | Maternal | | | | | Aunt | | | + + +------+ + | Diabetes | Maternal | | | | | Grandfath | | | | | er | | | + + +------+ + | Thyroid | Maternal | | | | | Grandfath | | | | | er | | | + + +------+ + | Thyroid | Maternal | | | | | Grandmoth | | | | | er | | | + + +------+ + | Cancer | Maternal | | | | | Uncle | | | + + +------+ + | Other | Mother | | benign tumor behind ear, deaf in ear now, | | | | | multiple surgeries | + + +------+ + | Diabetes | Paternal | | | | | Aunt | | | + + +------+ + | Diabetes | Paternal | | | | | Aunt | | | + + +------+ + | Diabetes | Paternal | | | | | Grandfath | | | | | er | | | + + +------+ + | Heart Attack | Paternal | | Had [address] from second | | | Grandfath | | | | | er | | | + + +------+ + | Diabetes | Paternal | | | | | Grandmoth | | | | | er | | | + + +------+ + + +------+ + + | Relation | Name | Status | Comments | + +------+ + + | Brother | | | | + +------+ + + | Maternal Aunt | | | | + +------+ + + | Maternal Grandfather | | | | + +------+ + + | Maternal Grandmother | | | | + +------+ + + | Maternal Uncle | | | | + +------+ + + | Mother | | | | + +------+ + + | Paternal Aunt | | | | + +------+ + + | Paternal Aunt | | | | + +------+ + + | Paternal Grandfather | | | | + +------+ + + | Paternal Grandmother | | | | + +------+ + + Social History + +-------+ +--------+------+ [...] recent travel history available. | + + Last Filed Vital Signs + + + [...] | | + + + + + Plan of Treatment + + + + + | Health Maintenance | Due Date | Last Done | Comments | + + + + + | Chlamydia screening | | 01/05/2018 | | | | 9 | | | + + + + + | Influenza (Flu) | | 05/14/2018, 08/23/2010 | | | vaccination (#1) | 9 | | | + + + + + | DEPRESSION SCREEN | | 10/27/2018, 10/27/2018, | | | | 0 | 10/27/2018 | | + + + + + | Preconception/contra | | 10/27/2018, 10/27/2018 | | | ception counseling | 0 | | | | (one emerson question) | | | | + + + + + | Substance abuse | | 10/27/2018 | | | screening | 0 | | | + + + + + | Cervical cancer | | 01/07/2018 | | | screening (pap | 1 | | | | smear) | | | | + + + + + | Diphtheria,Tetanus,P | | 04/30/2018, 02/07/2009, | | | ertussis vaccination | 8 | 05/06/2001, Additional history | | | (8 - Td) | | exists | | + + + + + | Meningococcal ACWY | Aged Out | 08/23/2010 | No longer eligible | | vaccination | | | based on patient's | | | | | age to complete this | | | | | topic | + + + + + | HIV screening | Completed | 01/05/2018 | | + + + + + | HPV (GARDASIL) | Completed | 10/27/2018, 11/07/2010, | | | vaccination | | 08/23/2010 | | + + + + + | Pneumococcal | Aged Out | | No longer eligible | | vaccination | | | based on patient's | | | | | age to complete this | | | | | topic | + + + + + Results Not on filefrom Last 3 Months Insurance + +--------+ +--------+ + +------+ | Payer | Benefi | Subscriber | Effect | Phone | Address | Type | | | t Plan | ID | reid | | | | | | / | | Dates | | | | | | Group | | | | | | + +--------+ +--------+ + +------+ | [employer]UE | REGENC | xxxxxxxxxxx | 06/16/19 | [phone] | [address] | PPO | | SHIELD | E [employer]BS | x | 18-Pre | 8 | [id number] | | | | | | sent | | [place], | | | | | | | | [place] | | | | | | | | [address] | | + +--------+ +--------+ + +------+ | [employer]UE | REGENC | [phone] | 11/15/19 | [phone] | [address] | PPO | | SHIELD | E [employer]BS | x | 16-Pre | 8 | [id number] | | | | | | sent | | [place], | | | | | | | | [place] | | | | | | | | [address] | | + +--------+ +--------+ + +------+ + +--------+ +--------+ + + | Guarantor Name | Accoun | Relation to | Date | Phone | Billing Address | | | t Type | Patient | of | | | | | | | | | | + +--------+ +--------+ + + | Elizabet Turcios | Person | Self [birth year] | [address] | | [place] | al/Fam | | 1994 | [phone] | [facility] [place] [address] | | | miguel | | | 0 (Home) | | + +--------+ +--------+ + + | Elizabet Turcios | Person | Self [birth year] | [address] | | [place] | al/Fam | | 1994 | [phone] | [place] [address] | | | miguel | | | 0 (Home) | | + +--------+ +--------+ + + Advance Directives + + + + + | Code Status | Date | Date | Comments | | | Activated | Inactivated | | + + + + + | Full Code | 07/18/2018 | 07/20/2018 | | | | 12:44 AM | 6:15 PM | | + + + + + + + + +---+ | | | | | + + + +---+ | Full Code | 07/15/2018 | 07/18/2018 | | | | 7:59 PM | 12:44 AM | | + + + +---+ + + + +---+ | | | | | + + + +---+ | Full Code | 06/18/2018 | 06/18/2018 | | | | 4:10 PM | 11:40 PM | | + + + +---+ + + + +---+ | | | | | + + + +---+ | Full Code | 04/19/2018 | 04/20/2018 | | | | 10:24 PM | 10:24 AM | | + + + +---+
--- OUTSIDE RECORDS SUMMARY | ~2019-05-12 | XMS | Encounter Summary ---
Demographics + + + | Address | [address] | | | [place] [address] | + + + | Home Phone | | + + + | Preferred Language | Unknown | + + + | Marital Status | Single | + + + | Zoroastrianism Affiliation | NRP | + + + [...] | | [place] | | [place] [address] | | + + + + + | Gracie Turcios | ECON | [place] | | + + + + + Care Team Providers + +------+ + | Care Crust Sorter Name | Role | Phone | [...] + + + | 06/11/ | | [place] | | Obstetric US Scan | | 2018 | | [facility] [address] | | | | | | E [facility] | | | | | | [address] [place], [place] | | | | | | [address] | | | | | | [phone] | | | +--------+ + + + [...] 37 weeks. | | | Performed by lidar technician. Type of ultrasound: ABDOMINAL. Read by [...]
--- OUTSIDE RECORDS SUMMARY | ~2019-05-12 | XMS | Encounter Summary ---
Demographics + + + | Address | [address] | | | [place] [address] | + + + | Home Phone | | + + + | Preferred Language | Unknown | + + + | Marital Status | Single | + + + | Voodoo Affiliation | NRP | + + + [...] | | [place] | | [place] [address] | | + + + + + | Gracie Turcios | ECON | [place] | | + + + + + Care Team Providers + +------+ + | Care Senior J2Ee Developer Name | Role | Phone | + [...] + + + | 02/11/ | | [place] | | care ([facility] | | 2018 | | [facility] [address] | | review) | | | | E [facility] | | | | | | [address] [place] | | | | | | [address] | | | | | | [phone] | | | +--------+ + + + [...] office, 5-6 hours in the am in [place] and 2-6 hours in the afterno on in [place]. But she also forgets on her day [...] before work. She has met with the nurses educator at [facility] once and she will schedule another a [...]
--- OUTSIDE RECORDS SUMMARY | ~2019-05-12 | XMS | Encounter Summary ---
Demographics + + + | Address | [address] | | | [place] [address] | + + + | Home Phone [...] + + | Author | [facility] | + + + | Organization | [facility] | + + + | Address | Unknown | + + + | Phone | Unavailable | + + + Support + + + + + | Name | Relationship | Address | Phone | + + + + + | Anderson Rose | ECON | [address] | | | [place] | | [place] [address] | | + + + + + | Gracie Turcios | ECON | [place] | | + + + + + Care Team Providers + +------+ + | Care Corporate Tutor Name | Role | Phone | + [...] + + + | 03/05/ | | [place] | | Obstetric US Scan | | 2018 | | [facility] [address] | | | | | | E [facility] | | | | | | [address] [place], [place] | | | | | | [address] | | | | | | [phone] | | | +--------+ + + + [...] 03/05/2018 8:00 AM PDTUltrasound exam performed at [facility] and will be read/resulted at [facility]. documented in this encou nter Plan of Treatment Not on filedocumented as of this encounter Procedures + +--------+ + + + | Procedure Name | Priori | Date/Time | Associated Diagnosis | Comments | | | ty | | | | + +--------+ + + + | [facility] OB >=14 | Routin | 03/05/2018 | [...] + + documented in this encounter Results [facility] OB >=14 WEEKS SINGLE FETUS - EXTERNAL READ (03/05/2018 8:03 AM PDT) + + | Specimen | + + | | + + + + + | Narrative | Performed At | + + + | Ultrasound exam performed at [facility] and will | [facility] | | be read/resulted at [facility]. | DEPARTMENT OF | | | RADIOLOGY [...]
--- OUTSIDE RECORDS SUMMARY | ~2019-05-12 | XMS | Encounter Summary ---
Demographics + + + | Address | [address] | | | [place] [address] | + + + | Home Phone [...] | | [place] | | [place] [address] | | + + + + + | Gracie Turcios | ECON | [place] | | + + + + + Care Team Providers + +------+ + | Care Emr Analyst Name | Role | Phone | + +------+ + | Anisha Rivera | PCP | | + +------+ + Reason for Visit + + + | Reason | Comments | + + + | Abnormal Glucose | 2hr GTT | | Tolerance Test | | + + + Encounter Details +--------+ + + + + | Date | Type | Department | Care Team | Description | +--------+ + + + + | 09/29/ | Telephone | [facility] | Natasha Jones, | Abnormal Glucose | | 2019 | | [facility] [place] [address] | [address] , | Tolerance Test (2hr | | | | [address] [place], [place] | GTT) | | | | [address] [place], [place] | [address] | | | | | [address] | [phone] | | | | | [phone] | | | +--------+ + + + [...]
--- OUTSIDE RECORDS SUMMARY | ~2019-05-12 | XMS | Encounter Summary ---
Demographics + + + | Address | [address] | | | [place] [address] | + + + | Home Phone [...] | | [place] | | [place] [address] | | + + + + + | Gracie Turcios | ECON | [place] | | + + + + + Care Team Providers + +------+ + | Care Numberer And Wirer Name | Role | Phone | + [...] + + + | 07/02/ | | [place] | | monitoring | | 2019 | | [facility] [address] | | | | | | E [facility] | | | | | | [address] [place], [place] | | | | | | [address] | | | | | | [phone] | | | +--------+ + + + [...]
--- OUTSIDE RECORDS SUMMARY | ~2019-05-12 | XMS | Encounter Summary ---
Demographics + + + | Address | [address] | | | [place] [address] | + + + | Home Phone | | + + + | Preferred Language | Unknown | + + + | Marital Status | Single | + + + | Baptism Affiliation | NRP | + + + [...] | | Garrett | | [place] [address] | | + + + + + | Gracie Turcios | ECON | [place] | | + + + + + Care Team Providers + +------+ + | Care Ornamental Metal Erector Name | Role | Phone | + [...] + + | 06/25/ | Telephone | [facility] | Ti, | Appointment | | 2019 | | [facility] [address] | MD [address] | | | | | [address] | [address] | | | | | [address] [place], [place] | [place] | | | | | [address] | [address] | | | | | [phone] | [phone] | | | | | | | [...]
--- OUTSIDE RECORDS SUMMARY | ~2019-05-12 | XMS | Encounter Summary ---
Demographics + + + | Address | [address] | | | [place] [address] | + + + | Home Phone [...] | | [place] | | [place] [address] | | + + + + + | Gracie Turcios | ECON | [place] | | + + + + + Care Team Providers + +------+ + | Care Tank Furnace Operator Name | Role | Phone | [...] | +--------+ + + + + | 02/17/ | Telephone | [place] | Kapil Rutherford, | Refill Request | | 2018 | | [facility] [address] | [facility] [address] | | | | | [address] | [address] | | | | | [address] [place], [place] | [place], [place] | | | | | [address] | [address] | | | | | [phone] | [phone] | | | | | | | [...]
--- OUTSIDE RECORDS SUMMARY | ~2019-05-12 | XMS | Encounter Summary ---
Demographics + + + | Address | [address] | | | [place] [address] | + + + | Home Phone | | + + + | Preferred Language | Unknown | + + + | Marital Status | Single | + + + | Tenriism Affiliation | NRP | + + + [...] | | Garrett | | [place] [address] | | + + + + + | Gracie Turcios | ECON | [place] | | + + + + + Care Team Providers + +------+ + | Care Integration Engineer Name | Role | Phone | + +------+ + | Anisha Rivera | PCP | | + +------+ + Reason for Visit + + + | Reason | Comments | + + + | Test Results | | + + + Encounter Details +--------+ + + + + | Date | Type | Department | Care Team | Description | +--------+ + + + + | 01/15/ | Telephone | [place] | Kapil Rutherford, | Test Results | | 2017 | | [facility] [address] | [facility] [address] | | | | | [address] | [address] | | | | | [address] [place], [place] | [place] | | | | | [address] | [address] | | | | | [phone] | | | | | | | [...]
--- OUTSIDE RECORDS SUMMARY | ~2019-05-12 | XMS | Encounter Summary ---
Demographics + + + | Address | [address] | | | [place] [address] | + + + | Home Phone [...] | Anderson Rose | ECON | [address] | | | [place] | | [place] [address] | | + + + + + | Gracie Turcios | ECON | [place] | | + + + + + Care Team Providers + +------+ + | Care Tree Pruner Name | Role | Phone | + [...]
--- OUTSIDE RECORDS SUMMARY | ~2019-05-12 | XMS | Encounter Summary ---
Demographics + + + | Address | [address] | | | [place] [address] | + + + | Home Phone [...] | | [place] | | [place] [address] | | + + + + + | Gracie Turcios | ECON | [place] | | + + + + + Care Team Providers + +------+ + | Care Cold Roll Packer Sheet Iron Name | Role | Phone | + [...] + + | 02/17/ | Telephone | [facility] [place] | Kapil Rutherford, | Refill Request | | 2018 | | [facility] [address] | [facility] [address] | | | | | [address] | [address] | | | | | [address] [place], [place] | [place], [place] | | | | | [address] | [address] | | | | | [phone] | [phone] | | | | | | | [...]
--- OUTSIDE RECORDS SUMMARY | ~2019-05-12 | XMS | Encounter Summary ---
Demographics + + + | Address | [address] | | | [place] [address] | + + + | Home Phone [...] | | [place] | | [place] [address] | | + + + + + | Gracie Turcios | ECON | [place] | | + + + + + Care Team Providers + +------+ + | Care Hard Hat Diver Name | Role | Phone | + [...] + + + + | 06/22/ | | [place] | | monitoring | | 2019 | | [facility] [address] | | | | | | [facility] | | | | | | [address], [place] | | | | | | [address] | | | | | | [phone] | | | +--------+ + + + [...] + + + | Blood Pressure | 121/76 | 06/22/2018 9:38 AM | | | | | PST [...] + + + + | Weight | 122.9 kg (271 lb) | 06/22/2018 9:38 AM | | | | | PST | | + + + + + | Height | - | - | | + + + + + | Body Mass Index | 49.55 | 03/16/2018 3:13 PM | | | | | PDT | | + + + + + documented in this encounter Progress Notes Jordan Gonsalves RN - 06/22/2018 8:00 AM PSTNST: 23 y.o. at 35w5d weeks gesta tion. Indications for monitoring: GDM on insulin, BMI, velamentous cord, polyhydramnios Elizabet states that she has continued to have contractions about every 20 minutes. No grey ge in intensity. The tightness is located in upper abdomen. No increased vaginal pressure. FHT: Baseline FHR 130, moderate variability, 15 x 15 accelerations, and one deceleration. TOCO: Multiple contractions noted in 70 minutes, rated at 6/10 on pain scale by patient. Strip reviewed by Wellington Jones MD. Next appointment 06/25 for OBR/JUANI/NST. Glucose results reviewed by Dr. Jones. Pt to continue NPH 6 units in the morning and NPH 12 units at bedtime. Patient to go to OB for continued monitoring due to deceleration. Pt declines being walked to OB dept. She states she has to call her work and check in to see if she can stay and she will drive over to the [facility] parking lot. documented in this encounter Plan of Treatment Not on filedocumented as of this encounter Procedures + +--------+ + + + | Procedure Name | Priori | Date/Time | Associated Diagnosis | Comments | | | ty | | | | + +--------+ + + + | NST | Routin | 06/22/2018 | Gestational | Results for this | [...] + documented in this encounter Results NST (06/22/2018) + + + + + [...]
--- OUTSIDE RECORDS SUMMARY | ~2019-05-12 | XMS | Encounter Summary ---
Demographics + + + | Address | [address] | | | [place] [address] | + + + | Home Phone [...] | | Garrett | | [place] [address] | | + + + + + | Gracie Turcios | ECON | [place] | | + + + + + Care Team Providers + +------+ + | Care Kitchen Chef Name | Role | Phone | + +------+ + | Anisha Rivera | PCP | | + +------+ + Encounter Details +--------+------+ + + + | Date | Type | Department | Care Team | Description | +--------+------+ + + + | 09/28/ | Lab | Laboratory at | | | | 2018 | | [facility] | | | | | | Center [address] | | | | | [address] [place] | | | | | | [address] | | | +--------+------+ + + + [...]
--- OUTSIDE RECORDS SUMMARY | ~2019-05-12 | XMS | Encounter Summary ---
Demographics + + + | Address | [address] | | | [place] [address] | + + + | Home Phone | | + + + | Preferred Language | Unknown | + + + | Marital Status | Single | + + + | Adventist Affiliation | NRP | + + + [...] [address] | | | [place] | | [place] [address] | | + + + + + | Gracie Bullock | ECON | [place] | | + + + + + Care Team Providers + +------+ + | Care Vault Maker Name | Role | Phone | [...] | | | | Mailcode: PV450 | [facility], [place] | | | | | [facility] | [address] | | | | | [facility] [place] | [phone] | | | | | [address] | | | | | | [phone] | | | +--------+ + + + [...] Performed At | + + + | [facility] | [facility] | | OBSTETRICAL ULTRASOUND REPORT | RADIOLOGY OB US | | | | | Pat. Name: ELIZABET BULLOCK Pat. No: [id number] | | | Study Date: 03/05/2018 8:03am , Age: 13 1995, 22 | | | Pregnancies: 2, Para 0010 LMP: Unknown GA by | | | US: 20w3d GA Selected: 20w1d (From Known E) ADELINE: | | | 07/22/2018 Referring MD: FIORELLA RENO Quencher Operator: Cassi | | | Brandon [facility]: [id number] | | | | | | MEASUREMENTS & AGE GROWTH EVALUATION | | | Measurement GA Range Srce %for GA Ratios | | | ----- ---- ------- BPD 4.9 | | | cm 20w6d (31i3f-74d5t) Hadl BPD 70% FL/BPD 0.67 HC 18.1 cm 20w3d | | | (11x2o-75s7j) Hadl HC 60% FL/AC 0.20 AC 16.2 cm 21w2d | | | (53q1b-97v5j) Hadl AC 74% HC/AC 1.12 (1.06 - 1.24) FL 3.3 cm | | | 20w2d (63m9h-54k2b) Hadl FL 55% CI 0.79 (0.70 - 0.86) HL | | | 3.3 cm 21w0d (05u9q-56z8j) Sinan ONEILL 65% GA for sonogram 20w3d | | | (81i8v-98u6b) Weight Estimate: based on (BPD,HC,AC,FL) | | [...] ! | | | ! ! Cardiac [place]/! x ! ! | | | ! [...] | | US in 2 weeks at [facility] for anatomy completion and assessment of the | | | profile. Thank you very much for allowing us to help care for | | | your patient. If you have any questions, please feel free to call | | | our 24 hour phone consult number at any time and ask for the | | | perinatologist outreach and education social worker. [phone] or [phone] MARIO, | | | MD NATALIA <Electronic [...] - 03/05/2018 12:53 PM PDT | | [facility] OBSTETRICAL ULTRASOUND | | REPORT Pat. Name: | | ELIZABET BULLOCKLibby. No: [id number] Date: 03/05/2018 8:03amDOB, | | Age: 13 1995, 22Pregnancies: 2, Para 0010LMP: UnknownGA by US: | | 37v9tLZ Selected: 20w1d (From Known E)ADELINE: 07/22/2018Referring MD: SHADIA, | | MANDELYNNSonographer: Dany Ye4: | | [id number] | | & AGE GROWTH EVALUATIONMeasurement GA Range Srce %for | | GA Ratios ----- ---- ------- BPD 4.9 | | cm 20w6d (66r7u-32m2c) Hadl BPD 70% FL/BPD 0.67HC 18.1 cm 20w3d (43h1c-75i0b) Hadl HC | | 60% FL/AC 0.20AC 16.2 cm 21w2d (07n5f-11m5p) Hadl AC 74% HC/AC 1.12 (1.06 - 1.24)FL | | 3.3 cm 20w2d (39w9f-02l9i) Hadl FL 55% CI 0.79 (0.70 - 0.86)HL 3.3 cm 21w0d | | (25k7w-16i3a) Sinan HL 65%GA for sonogram 20w3d (92c1b-33r7y) Weight | | Estimate:based on (BPD,HC,AC,FL) [place] Weight: 379 gm (324-435gm) [facility] | | : 0lbs, 13ozMarkers for [...] | !Chest/Lungs/R! x ! ! ! !Cardiac [place]/! x ! ! | | ! !Four [...] follow up US in 2 weeks at [facility] | | for anatomy completion and assessment of the profile. Thank you very much for | | allowing us to help care for your patient. If you have any questions, please feel free | | to call our 24 hour phone consult number at any time and ask for the perinatologist on | | call. [phone] or [phone] MARTIN MD <Electronic | | Signature> 03/05/2018 [...] follow up US in 2 weeks at [facility] for anatomy | |completion and assessment of the profile. | |Thank you very much for allowing us to help care for your patient. | |If you have any questions, please feel free to call our 24 hour | |phone consult number at any time and ask for the perinatologist on | |call. [phone] or [phone] | |NATALIA MARTIN MD | | | [...]
--- OUTSIDE RECORDS SUMMARY | ~2019-05-12 | XMS | Encounter Summary ---
Demographics + + + | Address | [address] | | | [place] [address] | + + + | Home Phone [...] Author + + + | Author | [facility] | + + + | Organization | [facility] | + + + | Address | Unknown | + + + | Phone | Unavailable | + + + Support + + + + + | Name | Relationship | Address | Phone | + + + + + | Anderson Rose | ECON | [address] | | | [place] | | [place] [address] | | + + + + + | Gracie Bullock | ECON | [place] | | + + + + + Care Team Providers + +------+ + | Care Manager Of Quality Name | Role | Phone | + [...] + + | 07/17/ | Surgery | [facility] | Barrera Lopez MD | urgent | | 2019 | | Medical Center [address] | [address] | | | | | [address] | [address] [place] | | | | | [place] | [address] | | | | | [address] | [phone] | | | | | | | [...] Information for the patient's : Angel Bullock [[id number]] Weight: 3.37 kg (7 lb 6.9 oz) [...] known as: BLOOD GLUCOSE TEST Blood-Glucose Meter [facility] insulin needles (Disposable) 32 gauge x 5/32" Ndle Commonly known as: BD ULTRA-FINE RADHIKA PEN NEEDLE 4 MM X 32 G insulin NPH 100 unit/mL (3 mL) Inpn Commonly known as: HUMULIN N FLEXPEN Lancets Misc Commonly known as: T-Quad 22 UNISTIK II LANCETS metoclopramide HCl 10 mg [...] your provider, please call the [facility] at [phone] during daytime hours. Follow Up 2-3 days in pp care clinic 2 weeks with Natasha Jones MD Future Appointments Provider Department Dept Phone Center 07/31/2018 11:00 AM Natasha Jones [facility] [phone] [facility] Schedule the following appointment(s) when you get home Maternity Services at [facility]. Go on 07/22/2018. Specialty: Obstetrics & Gynecology Why: As scheduled, for Post Care Clinic with infant at 12:00pm Contact information [address] [facility] [address] Natasha Jones MD Discharging [...] doctor if you can take an o moc-han-kqlaoha medicine. If you think your pain medicine [...] to Expect at Home", log into your Resource Capital nt at [email or web address]. You can enter M806 in the "Teradici Library" search box. Iron-Rich Diet: Care Instructions [...] "Iron-Rich Diet: Care Instructions", log into your SellAnyCar.ru account at h [email or web address]. You can enter Z290 in the "Teradici Library" search box. Not on SellAnyCar.ru? Review the SiftyNett section of your After Visit Summary for directions on [place]claude park to sign up. Current as of: September 10, 2017 Content Version: 11.9 0432-0940 JolieBox. Care instructions adapted under license by [facility] alth & [employer]. If you have questions about a medical condition or this instr uction, always ask your healthcare professional. JolieBox disclaims any frederic anty or liability for [...] Cont. Routine PP care. BARRERA LOPEZ MD [facility] - 06/2018 10:13 PM PSTIntrapartum Note Subjective I was called in for a prolonged decel after recurrent variable & late decelerations. Pitocin has been turned off, patient repositioned & IVF infusing. MANAGER SIMULATION was called to assist with resuscitation. Patient [...] Blood sugar now 101. BARRERA LOPEZ MD [facility] MD - 06/2018 7:12 PM PSTS: Patient is now comfortable with epidural O: BP 152/83 | Pulse 70 | Temp 36.7 C (98 F) | RR 18 | Ht 1.575 m (5' 2") | Wt 125.2 kg (276 lb) | SpO2 98% | LMP 10/15/2017 | BMI 50.48 kg/(m^2) Gen: NAD Everson: Ctx every 5-6min FHR: 125/moderate variability/ + [...] 118/66 (07/17/18 0400) Contraction Quality: Mild (07/17/1830) Everson: Contractions every 2-3 minutes heart tones: Category [...] baseline 130, mod variability, +accels, - decels Everson: Q 4-6min Meds: NPH 12 units last [...] baseline 130, mod variability, +accels, - decels Everson: Q 5-6min Meds: NPH 12 units last [...] baseline 130, mod variability, +accels, - decels Everson: Q 5-6min Meds: NPH 12 units last [...] (H) | 7.5 - 11.2 fL | [facility] | | | | | | A MEDICAL | | | | | | CENTER | | + + + + + + + + | Specimen | + + | Blood - Blood | | (substance) | + + + + + | Narrative | Performed At | + + + | No reflex rules apply to this test. | [facility] | | | MEDICAL CENTER | + + + + + + + + | Performing | Address | City/State/Zipcode | Phone Number | | Organization | | | | + + + + + | [place] | And | [place] [address] | [phone] | | [facility] | Streets | | | [...] Name: Elizabet Bullock MRN: | | | [id number] : 1995 Procedure Date: 07/18/2018 Surgeon: | | | BARRERA LOPEZ MD Family Dinner Service Specialist: Natasha Jones MD Preoperative | | [...] procedure. Infant's | | | Name: Angel uBllock Delivery Date: 07/17/2018 | | | Delivery [...] | + + + + + | [place] | And | [place] [address] | [phone] | | [facility] | Streets | | | [...] | [address] | [place] [address] | [phone] | | MEDICAL CENTER | Streets | [...] + + + + | [facility] | And | [place] [address] | [phone] | | MEDICAL CENTER | Streets | [...] EGFR | >60 | >60 mL/min | [facility] | | | - | | | A MEDICAL | | | [place] | | | CENTER | | + +-------+ + + + | EGFR NON | >60 | >60 mL/min | [facility] | | | -TIA | | | [...] the MDRD equation recommended by the | [facility] | | National Kidney Disease Education Program. Estimated GFR | [facility] | | Interpretive Information: <60 mL/min/1.73 sq [...] + + + + + | [facility] | And | [place] [address] | [phone] | | MEDICAL CENTER | Streets | | | + + + + + AST, PLASMA (07/17/2018 6:10 PM PST) + +-------+ + + + | Component | Value | Ref Range | Performed | Pathologist | | | | | At | Signature | + +-------+ + + + | AST(SGOT) | 14 | 10 - 41 U/L | [facility] | | | | | [...] + + | [facility] | And | [place] [address] | [phone] | | MEDICAL CENTER | Streets | | | + + + + + UREA NITROGEN, PLASMA (07/17/2018 6:10 PM PST) + +-------+ + + + | Component | Value | Ref Range | Performed | Pathologist | | | | | At | Signature | + +-------+ + + + | BUN, PLASMA | 12 | 6 - 26 mg/dL | [facility] | | | (LAB) | | [...] | [facility] | [address] | [place] [address] | [phone] | | MEDICAL CENTER | Streets | | | + + + + + URIC ACID, PLASMA (07/17/2018 6:10 PM PST) + +-------+ + + + | Component | Value | Ref Range | Performed | Pathologist | | | | | At | Signature | + +-------+ + + + | URIC ACID, | 4.5 | 2.4 - 5.7 mg/dL | [facility] | | | PLASMA | | [...] | [facility] | And | [place] [address] | [phone] | | MEDICAL CENTER | Streets | [...] + + | [facility] | [address] [place] | [place] [address] | [phone] | | MEDICAL CENTER | Streets | [...] | + + + + + | [facility] | And | [place] [address] | [phone] | | MEDICAL CENTER | Streets | [...] BLOOD BANK | and | [place] [address] | | | | Streets | | [...] | + + + + + | [facility] | [place] | [place] [address] | [phone] | | [facility] | Streets | | | [...] BANK | and | THE [place] [address] | | | | Streets | | [...] + | [facility] | [place] | [place] [address] | | | | Streets | | [...] 6.9 | 5.8 - 8.5 g/dL | [facility] | | | PROTEIN, | | | [...] | | A MEDICAL | | | [place] | | | CENTER | | + +---------+ + + + | EGFR NON | >60 | >60 mL/min | [facility] | | | -TIA | | | A MEDICAL | | | RICAN | | | CENTER | | + +---------+ + + + | ANION GAP | 14 | 7 - 16 mmol/L | [facility] | | | | | | A MEDICAL | | | | | | CENTER | | + +---------+ + + + | BUN/CREATIN | 24 | 6 - 20 | [facility] | | | INE RATIO | | [...] the MDRD equation recommended by the | [facility] | | National Kidney Disease Education Program. Estimated GFR | [facility] | | Interpretive Information: <60 mL/min/1.73 sq [...] [facility] | And | [place] [address] | [phone] | | [facility] | Streets | | | [...] + +---+ + +-------+ + +---+---+ | Multivits,Ca,Zglpyzed-Cicj-NA | Given | 07/20/19 | 1 tablet [...]
--- OUTSIDE RECORDS SUMMARY | ~2019-05-12 | XMS | Encounter Summary ---
Demographics + + + | Address | [address] | | | [place] [address] | + + + | Home Phone [...] | | [place] | | [place] [address] | | + + + + + | Gracie Turcios | ECON | [place] | | + + + + + Care Team Providers + +------+ + | Care Director Of Recruitment Name | Role | Phone | + [...] + + + | 06/11/ | | [place] | Natasha Jones, | ; | | 2018 | | [facility] [address] | [address], | monitoring | | | | [address] [place], [place] | | | | | [address] [place], [place] | [address] | | | | | [address] | [phone] | | | | | [phone] | | | +--------+ + + + [...] allergic to Penicillin, let your doctor or precision honer know. Did you get your Tdap shot? [...] log into your My Chart account at [email or web address]/[email or web address]. You can enter B912 in the "Health Library" [facility] box. Not on VetCloudhart? Review the MyChart section of your After Visit Summary for directions on [place]an-claude park to sign up. Current as of: February 18, 2018 Content Version: 11.9 9816-2529 PointsHound. Care instructions adapted under license by [facility] [employer] & Science Argos. If you have questions about a medical condition or this instr uction, always ask your healthcare professional. PointsHound disclaims any frederic anty or liability for [...] to have labs and then come to [facility] for Rhogam injection. - A2GDM: recently increased [...] classes for [facility] and phone number for [employer]ruce educ ator/coordinator. Requested she notify staff if [...]
--- OUTSIDE RECORDS SUMMARY | ~2019-05-12 | XMS | Encounter Summary ---
Demographics + + + | Address | [address] | | | [place] [address] | + + + | Home Phone [...] Author + + + | Author | [facility] | + + + | Organization | [facility] | + + + | Address | Unknown | + + + | Phone | Unavailable | + + + Support + + + + + | Name | Relationship | Address | Phone | + + + + + | Anderson Rose | ECON | [address] | | | [place] | | [place] [address] | | + + + + + | Gracie Turcios | ECON | [place] | | + + + + + Care Team Providers + +------+ + | Care Senior Hr Manager Name | Role | Phone | [...] | Closed | | | Diagnoses | [place], | Pnc | | | | | [...] | | | | | PERINATOLOGY | [address] | [place] | | | | | [place] NEW | Phone: | [place], [place] | | | | | PATIENT | [phone] | [address] | | | | | L[place] | Fax: | Phone: | | | | | EST PATIENT | [phone] | [phone] | | | | | LEVEL V | | Fax: | | | | | | | [phone] | +--------+--------+ + + + + Encounter [...] | | | [address] | [address] | | | | | Physician's Saji | [place], [place] | | | | | [place], [place] | [address] | | | | | [address] | [phone] | | | | | [phone] | | | +--------+ + + + [...] 2D and 3D evaluation). LABS: Completed 3hGTT [phone] ASSESSMENT AND PLAN: 22 yo with: Velamentous [...] 26-28 weeks (to be performed in the [facility]) - Recommend NST 1-2x/week starting at 32 weeks (to be performed in the [facility]) - Patient advised against laboring at home and to present to L&D soon after onset of labor Gestational diabetes Patient reports CBGs within range. Not on medication. - Gestational diabetes to be managed by routine OB in the [facility] No follow up necessary unless requested by routine OB. Start Time: 4:08 PM Exit Time: 4:20 PM I am Leola Goldsmith functioning as a scribe for MD Leola Sal PERINATOLOGY [address] [place] [address] I have reviewed, verified and edited the above scribed note of my visit with Elizabet Cheryl Turcios as recorded by Leola Goldsmith. The majority of time for this visit, greater than 50%, was spent in counseling regarding ve lamentous cord insertion and gestational diabetes affecting . The total physician dayanna carbone I spent in face to face discussion with Ms. Elizabet Turcios was 12 minutes. Zully Guo MD, MSCE Squeegee Operator Department of Obstetrics and Gynecology Division of Maternal Medicine [facility] Display Progress Note in MyChart: Yes documented [...] + + + | ALEKSANDER FULLER | [address] | [place], [place] | | | [facility] | [address] | [address] | | | TESTS | | | [...]
--- OUTSIDE RECORDS SUMMARY | ~2019-05-12 | XMS | Encounter Summary ---
Demographics + + + | Address | [address] | | | [place] [address] | + + + | Home Phone [...] | + + + + + | Andesron Rose | ECON | [address] | | | [place] | | [place] [address] | | + + + + + | Gracie Turcios | ECON | [place] | | + + + + + Care Team Providers + +------+ + | Care Field Scout Name | Role | Phone | + [...] | | 2016 | | Department at [facility] | [facility] | | | | | [facility] [address] | [facility] [address] | | | | | [place], | [address] | | | | | [place] [address] | [place] [address] | | | | | [phone] | [phone] | | | | | | | [...] - 09/05/2016Monitor symptoms closely. Return to the [facility] department immediately for any new or [...] care for yourself at home? Take an kdfy-wcx-bbwswee pain medicine, such as acetaminophen (Tylenol), ibuprofen (Advi l, Motrin), or naproxen (Aleve). Read and follow all instructions on the label. If the doctor prescribed antibiotics, take them as directed. Do not stop taking them jus t because you feel better. You need to take the full course of antibiotics. Be careful when taking szqj-jcz-igdlkzq cold or flu medicines and Tylenol at [...] about "Sinusitis: Care Instructions", log into your Codewise account at [email or web address]. You can enter I933 in the "Health Library" search box. Not on Codewise? Review the MyChart section of your After Visit Summary for directions on jean-claude park to sign up. Current as of: January 12, 2016 Content Version: 11.20051953-9652 Econic Technologies. Care instructions adapted under license by [facility]. If you have questions about a medical condition or this instr uction, always ask your healthcare professional. E[employer]ic Technologies disclaims any frederic anty or liability [...] Nasal Washes: Care Instructions", log into your Codewise account at [email or web address]. You can enter [id number] in the "Sellvana Library" search box. Not on Immunity Projecthart? Review the Immunity Projecthart section of your After Visit Summary for directions on jean-claude w to sign up. Current as of: January 12, 2016 Content Version: 04.16-2016 Econic Technologies. Care instructions adapted under license by [facility] [employer] & [employer]. If you have questions about a medical condition or this instr uction, always ask your healthcare professional. E[employer]ic Technologies disclaims any frederic anty or liability [...]
--- OUTSIDE RECORDS SUMMARY | ~2019-05-12 | XMS | Encounter Summary ---
Demographics + + + | Address | [address] | | | [place] [address] | + + + | Home Phone [...] | | Garrett | | [place] [address] | | + + + + + | Gracie Turcios | ECON | [place] | | + + + + + Care Team Providers + +------+ + | Care Profile Saw Setup Operator Name | Role | Phone | [...] + + + | 05/14/ | | [place] | | Obstetric US Scan | | 2018 | | [facility] | | | | | | E [facility] | | | | | | [address] [place], [place] | | | | | | [address] | | | | | | [phone] | | | +--------+ + + + [...] encounter Progress Notes Elizabeth Ascencio RN - 05/14/2018 8:00 AM PSTGrowth U/S completed today for c/b G DM on metformin, obesity, velamentous cord insertion and polyhydramnios. Electronically sign ed by Elizabeth Ascencio RN at 05/14/2018 9:43 AM PSTdocumented in this encounter Plan of Treatment Not on filedocumented as of this encounter Procedures + +--------+ + + + | Procedure Name | Priori | Date/Time | Associated Diagnosis | Comments | | | ty | | | | + +--------+ + + + | CLINIC OB FOLLOW | Routin | 05/14/2018 | High-risk | Results for this | | UP PER FETUS | e | 8:12 AM | in second | procedure are in the | | | | PST | trimester | results section. | + +--------+ + + + documented in this encounter Results CLINIC OB FOLLOW UP PER FETUS (05/14/2018 8:12 AM PST) + + | Specimen | + + | | + + + + + | Impressions | Performed At | + + + | History: 22 y.o. at 30w1d gestation presenting for a | [facility] | | growth scan secondary to c/b GDM on metformin, obesity, | DEPARTMENT OF | | velamentous cord insertion and polyhydramnios. . Findings: | RADIOLOGY | | Espinoza in breech presentation. Placenta: Anterior BPD: 7.9 cm | | | (75%) 31w 6d HC: 29.0 cm (76%) 31w 6d AC: 27.4 cm (70%) 31w 3d FL: | | | 5.9 cm (58%) 30w 5d EFW: 1738 grams (3lb 13oz) (66% for GA) | | | JUANI: 27.75 cm MVP: 7.7 cm Impression: 22 y.o. at | | | 30w1d gestation with normal growth at the 66%ile and | | | polyhydramnios.. Recommendations: Repeat growth ultrasound in 4 | | | weeks, begin weekly JUANI and biweekly NST at 32 weeks. Performed | | | by scrub technician. Type of ultrasound: ABDOMINAL. Read by Natasha Jones, | | | MD | | + + + + + + | Narrative | Performed At | + + + | | | + + + + +---------+ [...]
--- OUTSIDE RECORDS SUMMARY | ~2019-05-12 | XMS | Encounter Summary ---
Demographics + + + | Address | [address] | | | [place] [address] | + + + | Home Phone [...] | | Garrett | | [place] [address] | | + + + + + | Gracie Turcios | ECON | [place] | | + + + + + Care Team Providers + +------+ + | Care Geology Scientist Name | Role | Phone | + [...] + + + | 01/07/ | | [place] | Fiorella Reno, | Obstetric | | 2018 | | [facility] | CNM [address] | examination | | | | E [address] | [address] [address] | | | | | [address] [place], [place] | [place], [place] | | | | | [address] | [address] | | | | | [phone] | [phone] | | | | | | | [...] dis cuss this with your doctor or lpn home health. There are also some extreme variations of [...] weight during . Ask your doctor or lpn home health how you re doing and what strateg [...] partner can talk to your doctor or lpn home health about defects tests. Follow-up care is a [...] into your My Chart account at [email or web address]. You can enter E090 in the "Health Library" [facility] box. Not on Data Connect Corporationhart? Review the MyChart section of your After Visit Summary for directions on jean-claude w to sign up. Current as of: May 06, 2017 Content Version: 11.7 [id number] [employer]. Care instructions adapted under license by [facility] & Science [place]. If you have questions about a medical condition or this instr uction, always ask your healthcare professional. [employer] disclaims any frederic anty or liability for [...] otherwise doing well. She works for the [employer] and works almost every day with rare [...] Urethral Meatus: Normal in appearance. Bartholin's and Mcrae's Glands: Normal in appearance. Vagina: Well estrogenized. [...] | DIAGNOSTICS | | | | location: [facility] | | - | | | | [address] | | | | | | [id number] | | | | | |[address] | | | | + + + [...] DIAGNOSTICS | [address] | [place] [address] | | | - [place] | [address] [...]
--- OUTSIDE RECORDS SUMMARY | ~2019-05-12 | XMS | Encounter Summary ---
Demographics + + + | Address | [address] | | | [place] [address] | + + + | Home Phone [...] | | Garrett | | [place] [address] | | + + + + + | Gracie Turcios | ECON | [place] | | + + + + + Care Team Providers + +------+ + | Care Parish Visitor Name | Role | Phone | + [...] + + | 01/15/ | Telephone | [place] | Kapil Rutherford, | Test Results | | 2017 | | [facility] [address] | CNM [address] | | | | | E [address] | [address] | | | | | [address] [place], [place] | [place] | | | | | [address] | [address] | | | | | [phone] | [phone] | | | | | | | [...]
--- OUTSIDE RECORDS SUMMARY | ~2019-05-12 | XMS | Encounter Summary ---
Demographics + + + | Address | [address] | | | [place] [address] | + + + | Home Phone [...] | | Garrett | | [place] [address] | | + + + + + | Gracie Turcios | ECON | [place] | | + + + + + Care Team Providers + +------+ + | Care Paper Machine Backtender Name | Role | Phone | + [...] + + + | 07/13/ | | [place] | | monitoring | | 2019 | | [facility] [address] | | | | | | E [facility] | | | | | | [address] [place], [place] | | | | | | [address] | | | | | | [phone] | | | +--------+ + + + [...]
--- OUTSIDE RECORDS SUMMARY | ~2019-05-12 | XMS | Encounter Summary ---
Demographics + + + | Address | [address] | | | [place] [address] | + + + | Home Phone [...] Author + + + | Author | [facility] | + + + | Organization | [facility] | + + + | Address | Unknown | + + + | Phone | Unavailable | + + + Support + + + + + | Name | Relationship | Address | Phone | + + + + + | Anderson Rose | ECON | [address] | | | [place] | | [place] [address] | | + + + + + | Gracie Turcios | ECON | [place] | | + + + + + Care Team Providers + +------+ + | Care Dump Truck Driver Name | Role | Phone [...] + + + | 04/23/ | | [place] | Pentopoulos, | (sugar | | 2018 | | [facility] [address] | MD [address] | review) | | | | E | | | | | | [address] [place], [place] | [place], [place] | | | | | [address] | [address] | | | | | [phone] | [phone] | | | | | | | [...]
--- OUTSIDE RECORDS SUMMARY | ~2019-05-12 | XMS | Encounter Summary ---
Demographics + + + | Address | [address] | | | [place] [address] | + + + | Home Phone | | + + + | Preferred Language | Unknown | + + + | Marital Status | Single | + + + | Hoahaoism Affiliation | NRP | + + + [...] | | Garrett | | [place] [address] | | + + + + + | Gracie Turcios | ECON | [place] | | + + + + + Care Team Providers + +------+ + | Care Machine Rigger Name | Role | Phone | [...] | Visit | Medicine [address] | CASTING ROOM OPERATOR [address] | unspecified type | | | | [address] [place], | [place], [place] | (Primary Dx); | | | | [place] [address] | [address] | Establishing care | | | | [phone] | [phone] | with new doctor, | | | [...] per day, 7 days per week at [phone] or you can reach me directly via [email or web address] at [email or web address]. Anisha GIBSON Instructor [facility] Department of Family Medicine [facility] Medicine P: [phone] F: [phone] Atopic Dermatitis: Care Instructions Your Care Instructions [...] If itching affects your normal activities, an jwyn-rej-bombwkx antihistamine, such as di phenhydramine (Benadryl) or [...] "Atopic Dermatitis: Care Instructions", log into your [email or web address].com account a t [email or web address]. You can enter I585 in the Health Library" search box. Not on G-modehart? Review the MyChart section of your After Visit Summary for directions on ho w to sign up. [id number] [employer]. Care instructions adapted under license by [facility] [employer] & Science [place]. This care instruction is for use with your licensed healthcar e professional. If you have questions about a medical condition or this instruction, always ask your healthcare professional. [employer] disclaims any warranty or liabili ty for your use of this information. Content Version: 10.8.697043; Current as of: August 05, 2014 documented [...] No rashes anywhere else. 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 milo is single and does not have [...] and increase daily exercise. Anisha GIBSON Instructor [facility] P: [phone] F: [phone] Email: [email or web address] Dolly Thacker MA - 10/02/2015 1:47 PM [...]
--- OUTSIDE RECORDS SUMMARY | ~2019-05-12 | XMS | Encounter Summary ---
Demographics + + + | Address | [address] | | | [place] [address] | + + + | Home Phone [...] Author + + + | Author | [facility] | + + + | Organization | [facility] | + + + | Address | Unknown | + + + | Phone | Unavailable | + + + Support + + + + + | Name | Relationship | Address | Phone | + + + + + | Anderson Rose | ECON | [address] | | | [place] | | [place] [address] | | + + + + + | Gracie Turcios | ECON | [place] | | + + + + + Care Team Providers + +------+ + | Care Chief Technology Officer Name | Role | Phone | [...] | | | | lordosis of | WELDER RAILCAR MECHANIC [address] | | | | | lumbar | [address] | [place], | | | | | spine | [place], [place] | [place] [address] | | | | | Chronic | [address] | Phone: | | | | | midline low | Phone: | [phone] | | | | | back pain | [phone] | Fax: | | | | | without | Fax: | [phone] | | | | | sciatica | [phone] | | | | | | Procedures [...] 2016 | | Medicine [address] | WELDER RAILCAR MECHANIC [address] | | | | | [address] [place], | [place], [place] | | | | | [place] [address] | [address] | | | | | [phone] | [phone] | | | | | | | [...]
--- OUTSIDE RECORDS SUMMARY | ~2019-05-12 | XMS | Encounter Summary ---
Demographics + + + | Address | [address] | | | [place] [address] | + + + | Home Phone [...] | | Garrett | | [place] [address] | | + + + + + | Gracie Turcios | ECON | [place] | | + + + + + Care Team Providers + +------+ + | Care Commodities Trader Name | Role | Phone | + +------+ + | Anisha Rivera | PCP | | + +------+ + Encounter Details +--------+------+ + + + | Date | Type | Department | Care Team | Description | +--------+------+ + + + | 12/19/ | Lab | Laboratory at [facility] | | Menstrual period | | 2016 | | Family Medicine | | late | | | | [address] [place] [address] The | | | | | | [place] | | | | | | [address] | | | | | | [phone] | | | +--------+------+ + + + [...] + +--------+ + + + | HCG (URINE ONLY) | Routin | 12/19/2016 | Menstrual period | Results for this | | | e | 12:08 PM | late | procedure are in the | | | | PDT | | results section. | + +--------+ + + + documented in this encounter Results HCG (URINE ONLY) (12/19/2016 [...] | + + + + + | [facility] | [address] | [place] [address] | | | FAMILY MEDICINE | | | | + + + + + documented in this encounter Visit Diagnoses + + | Diagnosis | + + | Menstrual period late Other disorder of menstruation and other abnormal bleeding from | | female genital tract | + + documented in this encounter"
--- OUTSIDE RECORDS SUMMARY | ~2019-05-12 | XMS | Encounter Summary ---
Demographics + + + | Address | [address] | | | [place] [address] | + + + | Home Phone | | + + + | Preferred Language | Unknown | + + + | Marital Status | Single | + + + | Roman Catholic Affiliation | NRP | + + [...] | | Garrett | | [place] [address] | | + + + + + | Gracie Turcios | ECON | [place] | | + + + + + Care Team Providers + +------+ + | Care Embossing Clerk Name | Role | Phone | + [...] late | | | | [address] [place] [address] The | | | | | | [place] | | | | | | [address] | | | | | | [phone] | | | +--------+------+ + + + [...] [address] | [place] [address] | | | FAMILY MEDICINE | | | | + + + + + documented in this encounter Visit Diagnoses + + | Diagnosis | + + | Menstrual period late Other disorder of menstruation and other abnormal bleeding from | | female genital tract | + + documented in this encounter"
--- OUTSIDE RECORDS SUMMARY | ~2019-05-12 | XMS | Encounter Summary ---
Demographics + + + | Address | [address] | | | [place] [address] | + + + | Home Phone | | + + + | Preferred Language | Unknown | + + + | Marital Status | Single | + + + | Baptist Affiliation | NRP | + + + [...] | | Garrett | | [place] [address] | | + + + + + | Gracie Turcios | ECON | [place] | | + + + + + Care Team Providers + +------+ + | Care Consultants Intern Name | Role | Phone | [...] + + | 05/29/ | Telephone | [place] | Ti, | Medication (Insulin, | | 2017 | | [facility] [place] [address] | MD [address] | new to patient) | | | | E [address] | [address] | | | | | [address] [place], [place] | [place], [place] | | | | | [address] | [address] | | | | | [phone] | [phone] | | | | | | | [...]
--- OUTSIDE RECORDS SUMMARY | ~2019-05-12 | XMS | Encounter Summary ---
Demographics + + + | Address | [address] | | | [place] [address] | + + + | Home Phone [...] | | [place] | | [place] [address] | | + + + + + | Gracie Turcios | ECON | [place] | | + + + + + Care Team Providers + +------+ + | Care Political Science Faculty Member Name | Role | Phone | + [...] + + | 11/24/ | Telephone | [facility] [employer] | Royal Lopez MD | test | | 2018 | | [facility] [address] | [address] [place] | | | | | E [address] | [address] [place], [place] | | | | | [address] [place], [place] | [address] | | | | | [address] | [phone] | | | | | [phone] | | | +--------+ + + + [...] | 10,316 (H) | <3 mIU/mL | [facility] | | | PLASMA | [...] HCG Reference Ranges Males and Non- | [facility] | | Females: 0.0-2.9 mIU/mL Females: Gestation Age HCG | [facility] | | Concentration (mIU/mL) 0.2-1 Weeks [...] | | by the FDA or the finishing area supervisor of the assay. | | + + + + + + + + | Performing | Address | City/State/Zipcode | Phone Number | | Organization | | | | + + + + + | [facility] | And | [place] [address] | [phone] | | [facility] | Streets | | | + + + + + documented in this encounter Visit Diagnoses + + | Diagnosis | + + | Unconfirmed - Primary examination or test, unconfirmed | + + documented in this encounter"
--- OUTSIDE RECORDS SUMMARY | ~2019-05-12 | XMS | Encounter Summary ---
Demographics + + + | Address | [address] | | | [place] [address] | + + + | Home Phone [...] | | [place] | | [place] [address] | | + + + + + | Gracie Turcios | ECON | [place] | | + + + + + Care Team Providers + +------+ + | Care Program Manager Slp Name | Role | Phone | + +------+ + | Anisha Rivera | PCP | | + +------+ + Encounter Details +--------+ + + + + | Date | Type | Department | Care Team | Description | +--------+ + + + + | 06/22/ | Hospital | Maternity Services | Natasha Jones, | | | 2018 | Encounter | at [facility] | MD [address], | | | | | [address] | [address] [place], [place] | | | | | [place], [place] | [address] | | | | | [address] | [phone] | | | | | [phone] | | | +--------+ + + + [...] 135, mod luis, pos accels, no decels [place] - occ contractions A/P: 23 y.o. at [...]
--- OUTSIDE RECORDS SUMMARY | ~2019-05-12 | XMS | Encounter Summary ---
Demographics + + + | Address | [address] | | | [place] [address] | + + + | Home Phone [...] | | [place] | | [place] [address] | | + + + + + | Gracie Turcios | ECON | [place] | | + + + + + Care Team Providers + +------+ + | Care Fuel Dock Attendant Name | Role | Phone | + +------+ + | Anisha Rivera | PCP | | + +------+ + Encounter Details +--------+ + + + + | Date | Type | Department | Care Team | Description | +--------+ + + + + | 09/28/ | Orders Only | [place] | Natasha Jones, | History of | | 2018 | | [facility] [address] | MD [address] , | gestational diabetes | | | | [address] | [address] [place], [place] | | | | | [address] [place], [place] | [address] | | | | | [address] | [phone] | | | | | [phone] | | | +--------+ + + + [...] (H) | 70 - 140 mg/dL | [facility] | | | NON-GEST- 2 | [...] glucose load with a single 2-hour | [facility] | | post load glucose level. Fasting glucose levels between 110-126 | [facility] | | mg/dl and OGTT 2-hour [...] | [place] | [address] | [place] [address] | [phone] | | MEDICAL CENTER | Streets | | | + + + + + GLUCOSE, 2HR-75 FASTING (09/28/2018 2:14 PM PDT) + +-------+ + + + | Component | Value | Ref Range | Performed | Pathologist | | | | | At | Signature | + +-------+ + + + | 2 HR GTT | 93 | 70 - 105 mg/dL | [facility] | | | NON-GEST- | | | [...] | [address] | [place] [address] | [phone] | | MEDICAL CENTER | Streets | | | + + + + + documented in this encounter Visit Diagnoses + + | Diagnosis | + + | History of gestational diabetes Personal history of gestational diabetes | + + documented in this encounter"
--- OUTSIDE RECORDS SUMMARY | ~2019-05-12 | XMS | Encounter Summary ---
Demographics + + + | Address | [address] | | | [place] [address] | + + + | Home Phone [...] | | [place] | | [place] [address] | | + + + + + | Gracie Turcios | ECON | [place] | | + + + + + Care Team Providers + +------+ + | Care Manager Strategic Development Name | Role | Phone | [...] + + | 09/29/ | Telephone | Actions | Natasha Jones, | Abnormal Glucose | | 2019 | | [facility] [place] [address] | [address] , | Tolerance Test (2hr | | | | [address] | [address] [place], [place] | GTT) | | | | [address] [place], [place] | [address] | | | | | [address] | [phone] | | | | | [phone] | | | +--------+ + + + [...]
--- OUTSIDE RECORDS SUMMARY | ~2019-05-12 | XMS | Encounter Summary ---
Demographics + + + | Address | [address] | | | [place] [address] | + + + | Home Phone [...] | | [place] | | [place] [address] | | + + + + + | Gracie Turcios | ECON | [place] | | + + + + + Care Team Providers + +------+ + | Care Dry Ice Maker Name | Role | Phone | [...] + + | 07/09/ | | [facility] | Natasha Jones, | ; Obstetric | | 2019 | | [facility] [address] | MD [address], | US Scan (JUANI); | | | | [address] | [address] [place], [place] | monitoring | | | | [address] [place], [place] | [address] | | | | | [address] | [phone] | | | | | [phone] | | | +--------+ + + + [...] them know you are juani barrera in. [phone]. Normal human lasts about 40 weeks (from [...] You, your baby, and your partner or defensive secondary coach will get identification bands. Only people wit h matching bands can shrimp picker the baby from the nursery. You [...] Your : Care Instructions", log into your apomio a ccount at [email or web address]. You can enter B044 in the "eMar Library" search box . Not on apomio? Review the apomio section of your After Visit Summary for directions on jean-claude park to sign up. Current as of: February 18, 2018 Content Version: .[id number] [employer]. Care instructions adapted under license by [facility] [employer] & Science [place]. If you have questions about a medical condition or this instr uction, always ask your healthcare professional. [employer] disclaims any frederic anty or liability for [...]
--- OUTSIDE RECORDS SUMMARY | ~2019-05-12 | XMS | Encounter Summary ---
Demographics + + + | Address | [address] | | | [place] [address] | + + + | Home Phone [...] | | Garrett | | [place] [address] | | + + + + + | Gracie Turcios | ECON | [place] | | + + + + + Care Team Providers + +------+ + | Care Creative Developer Name | Role | Phone | [...] | | | mellitus | , | [address] | | | | | (GDM) in | [address] | [place], | | | | | first | [place], [place] | [place] [address] | | | | | trimester, | [address] | Phone: | | | | | gestational | Phone: | [phone] | | | | | diabetes | [phone] | Fax: | | | | | method of | Fax: | [phone] | | | | | control | [phone] | | | | | | unspecified [...] | | 2017 | Support | at [facility] | [address] | | | | Staff | [address] | [place], [place] | | | | | [place], [place] | [address] | | | | | [address] | | | | | | [phone] | | | +--------+ + + + [...] tions: Thank you for meeting with the clinical [...] less than 140. 5. Call this number: [phone]. To find out when the next schedule of [facility] sses are Please call if you have questions or if you would like to schedule a follow up visit. Lisa Dumont RD DIABETES EDUCATION AT [address] [place] [address] My Diabetes Self-Management Support Plan Let your educator know if you need help accessing the websites. Emotional Support ___National Mulberry on Mental Illness (DANTE) (Depression, bipolar and other support) [phone]; www.dante.org ___Depression & Bipolar Support Mulberry- [phone]-www.dbsalliance.org ___Anxiety &Depression Association of [place] (find local therapist by zip code at www.ada a.org) National phone number [phone] ___National Suicide Prevention Lifeline- [phone] Weight Management ___Mind & Body Medicine Weight Loss Support Group- of every month-2nd floor [facility]. [phone] ___Weight Watchers. [phone]. wwwcFares ___Over eaters Anonymous [phone] (support group)- www.oa.org ___TOPS (Taking Off Pounds Sensibly) [place] [phone] ___[facility] [phone] (steps to wellness, offered in Hungarian and Icelandic) www.TechProcess Solutionseating.org https://oa.org www.theCarbonCure Technologieserformindfuleating.org Exercise ___[facility] Fitness Center. [phone] ___[facility] Medical Exercise Program. [phone] ___Curves -[phone]- www.curves.Bluestem Brands ___Soul to Soul Fitness [place], [place] [phone] ___[facility], [address] [place]. [phone] ___[facility] Walking Group- [phone] ___Exercise videos at library or Youtube exercise videos ___OPB TV- Sit and Be Fit; Gentle yoga/stretching ___ Home [employer]ot walking 4.5 laps around the inside perimeter = 1 mile ___Other Diabetes Support Group ___ Type 1 Diabetes support group -contact [email or web address] [email or web address] for meeting dates and location ___ Weight Loss Support Group [facility] 2nd Floor, of each month 12-1 pm, free- just show up ___Diabetes, gestational, and type 2 prevention websites www.diabetes.org (citizen of [place] diabetes association) www.niddk.nih.gov/health-information/diabetes#topics www.cdc.gov/diabetes www.diabetes.niddk.nih.gov www.ndep.nih.gov www.eatright.org www.dlife.[employer] Brands www.calorie.com www.tracker.diabetes.org www.zhouwuiaextractintheraw.[employer] Brands www.mayoclinic.org pharmaceutical/glucose meter websites Www.nlm.nih.gov/medlineplus/druginformation.html - National Library of Medicine's Herbs & S upplements Stress & Pain Relief ___[facility] Yoga classes. [phone] ___Mind & Body Mindfulness and Breath Work. [phone] ___[facility] Persistant Pain Education Program. [phone] ___Mind & Body Acupuncture Therapy. [phone] ___[facility]. [phone] Gestational Diabetes X Mommy Wellness Program. (in [place] [phone] and [place] [phone]) -conside ring ___www.ncbi.nlm.nih.gov/pubmedhealth/UEJ6892677 ___www.LLLI.org (La leche league international, breast feeding support) Journals ___Diabetes Forecast- [phone]- www.diabetesforecast.org ___Diabetes Self-Management- [phone]- www.diabetesEffiCitylRedfin.Bluestem Brands ___Diabetes Health-www.diabetesselfmanaNetroundsment.com Apps ___Calorie Chintan ___Glucose Zeeshan (Free, tracks blood glucose, graphs) ___SparkQuote (Free, inspiring quote for the day) ___My Rmgo-q-Kuusm X My Fitness Pal (free. Track food [...] drinking sugar y beverages and cake at [employer] and eating large portions of pasta. Discussed [...] less than 140. 5. Call this number: [phone] to find out when the next schedule of Agnes Roman ses are Lisa Dumont RD, LD, CDE Diabetes and Nutrition Services [facility] documented in this enc ounter Plan of Treatment Not on filedocumented as of this encounter Visit Diagnoses + + | Diagnosis | + + | Gestational diabetes mellitus (GDM) in second trimester controlled on oral | | hypoglycemic drug | + + documented in this encounter"
--- OUTSIDE RECORDS SUMMARY | ~2019-05-12 | XMS | Encounter Summary ---
Demographics + + + | Address | [address] | | | [place] [address] | + + + | Home Phone [...] | | Garrett | | [place] [address] | | + + + + + | Gracie Turcios | ECON | [place] | | + + + + + Care Team Providers + +------+ + | Care Protein Specialist Name | Role | Phone | + +------+ + | Anisha Rivera | PCP | | + +------+ + Encounter Details +--------+ + + + + | Date | Type | Department | Care Team | Description | +--------+ + + + + | 07/17/ | Procedure | [facility] | | | | 2019 | Pass | [facility] [address] | | | | | | [address] | | | | | | [place], [place] | | | | | | [address] | | | +--------+ + + + [...]
--- OUTSIDE RECORDS SUMMARY | ~2019-05-12 | XMS | Encounter Summary ---
Demographics + + + | Address | [address] | | | [place] [address] | + + + | Home Phone [...] Author + + + | Author | [facility] | + + + | Organization | [facility] | + + + | Address | Unknown | + + + | Phone | Unavailable | + + + Support + + + + + | Name | Relationship | Address | Phone | + + + + + | Anderson Rose | ECON | [address] | | | [place] | | [place] [address] | | + + + + + | Gracie Turcios | ECON | [place] | | + + + + + Care Team Providers + +------+ + | Care Water Pipe Installer Name | Role | Phone | + [...] + + + | 05/28/ | | [place] | | Obstetric US Scan | | 2018 | | [facility] [address] | | | | | | [address] [facility] | | | | | | [address] [place], [place] | | | | | | [address] | | | | | | [phone] | | | +--------+ + + + [...] | | in 2 weeks Performed by food service technician. Type of ultrasound: | | | ABDOMINAL. Read by HEATH VALEZNUELA MD | | + + + + [...]
--- OUTSIDE RECORDS SUMMARY | ~2019-05-12 | XMS | Encounter Summary ---
Demographics + + + | Address | [address] | | | [place] [address] | + + + | Home Phone [...] + + + | Author | [facility] | + + + | Organization | [facility] | + + + | Address | Unknown | + + + | Phone | Unavailable | + + + Support + + + + + | Name | Relationship | Address | Phone | + + + + + | Anderson Rose | ECON | [address] | | | [place] | | [place] [address] | | + + + + + | Gracie Bullock | ECON | [place] | | + + + + + Care Team Providers + +------+ + | Care Director Cpg Name | Role | Phone | + [...] | | | | [address] | [place], | | | | | | [address] | [place] | | | | | | [place], [place] | [address] | | | | | | [address] | Phone: | | | | | | Phone: | [phone] | | | | | | [phone] | Fax: | | | | | | Fax: | [phone] | | | | | | [phone] | | +--------+--------+ + + + + Encounter Details +--------+ + + + + | Date | Type | Department | Care Team | Description | +--------+ + + + + | 03/05/ | Ancillary | Perinatology | | | | 2018 | Procedure | Telemedicine [address] | | | | | | [place], [place] | | | | | | [address] | | | | | | [phone] | | | +--------+ + + + [...] Performed At | + + + | [facility] | [facility] | | OBSTETRICAL ULTRASOUND REPORT | RADIOLOGY OB US | | | | | Pat. Name: ELIZABET BULLOCK Pat. No: [id number] | | | Study Date: 03/05/2018 8:03am , Age: 13 1995, 22 | | | Pregnancies: 2, Para 0010 LMP: Unknown GA by | | | US: 20w3d GA Selected: 20w1d (From Known E) ADELINE: | | | 07/22/2018 Referring MD: FIORELLA RENO Sample Mounter: Cassi | | | Brandon [facility]: [id number] | | | | | | MEASUREMENTS & AGE GROWTH EVALUATION | | | Measurement GA Range Srce %for GA Ratios | | | ----- ---- ------- BPD 4.9 | | | cm 20w6d (27o9c-81e7x) Hadl BPD 70% FL/BPD 0.67 HC 18.1 cm 20w3d | | | (28i0p-63h7q) Hadl HC 60% FL/AC 0.20 AC 16.2 cm 21w2d | | | (92m4v-71r6u) Hadl AC 74% HC/AC 1.12 (1.06 - 1.24) FL 3.3 cm | | | 20w2d (03o8v-86s8z) Hadl FL 55% CI 0.79 (0.70 - 0.86) HL | | | 3.3 cm 21w0d (95e7s-64t8s) Sinan ONEILL 65% GA for sonogram 20w3d | | | (02u6j-53p5d) Weight Estimate: based on (BPD,HC,AC,FL) | | [...] ! | | | ! ! Cardiac [place]/! x ! ! | | | ! [...] | | US in 2 weeks at [facility] for anatomy completion and assessment of the | | | profile. Thank you very much for allowing us to help care for | | | your patient. If you have any questions, please feel free to call | | | our 24 hour phone consult number at any time and ask for the | | | perinatologist international marketing intern. [phone] or [phone] MARIO, | | | MD NATALIA <Electronic [...] - 03/05/2018 12:53 PM PDT | | [facility] OBSTETRICAL ULTRASOUND | | REPORT Pat. Name: | | ELIZABET BULLOCKLibby. No: [id number] Date: 03/05/2018 8:03amDOB, | | Age: 13 1995, 22Pregnancies: 2, Para 0010LMP: UnknownGA by US: | | 12i6uPR Selected: 20w1d (From Known E)ADELINE: 07/22/2018Referring MD: SHADIA, | | MANDELYNNSonographer: Dany Ye4: | | [id number] | | & AGE GROWTH EVALUATIONMeasurement GA Range Srce %for | | GA Ratios ----- ---- ------- BPD 4.9 | | cm 20w6d (83t2i-97n1i) Hadl BPD 70% FL/BPD 0.67HC 18.1 cm 20w3d (11w9j-10f2i) Hadl HC | | 60% FL/AC 0.20AC 16.2 cm 21w2d (85d2m-84c4n) Hadl AC 74% HC/AC 1.12 (1.06 - 1.24)FL | | 3.3 cm 20w2d (76w0b-77j6j) Hadl FL 55% CI 0.79 (0.70 - 0.86)HL 3.3 cm 21w0d | | (54e4n-49f6x) Sinan HL 65%GA for sonogram 20w3d (90d2v-72f3a) Weight | | Estimate:based on (BPD,HC,AC,FL) [place] Weight: 379 gm (324-435gm) [facility] | | : 0lbs, 13ozMarkers [...] | !Chest/Lungs/R! x ! ! ! !Cardiac [place]/! x ! ! | | ! !Four [...] follow up US in 2 weeks at [facility] | | for anatomy completion and assessment of the profile. Thank you very much for | | allowing us to help care for your patient. If you have any questions, please feel free | | to call our 24 hour phone consult number at any time and ask for the perinatologist on | | call. [phone] or [phone] MARTIN MD <Electronic | | Signature> 03/05/2018 [...] follow up US in 2 weeks at [facility] for anatomy | |completion and assessment of the profile. | |Thank you very much for allowing us to help care for your patient. | |If you have any questions, please feel free to call our 24 hour | |phone consult number at any time and ask for the perinatologist on | |call. [phone] or [phone] | |NATALIA MARTIN MD | | | [...]
--- OUTSIDE RECORDS SUMMARY | ~2019-05-12 | XMS | Encounter Summary ---
Demographics + + + | Address | [address] | | | [place] [address] | + + + | Home Phone [...] | | [place] | | [place] [address] | | + + + + + | Gracie Turcios | ECON | [place] | | + + + + + Care Team Providers + +------+ + | Care Engineering Director Name | Role | Phone | + +------+ + | Anisha Rivera | PCP | | + +------+ + Encounter Details +--------+ + + + + | Date | Type | Department | Care Team | Description | +--------+ + + + + | 12/28/ | Orders Only | [place] | Jennifer Burgos MD | Bleeding in early | | 2016 | | [facility] [address] | | | | | | E | | | | | | [address] [place], [place] | | | | | | [address] | | | | | | [phone] | | | +--------+ + + + [...] HCG BETA, | <0 | mIU/mL | [facility] | | | PLASMA | | [...] | [facility] | And | [place] [address] | [phone] | | MEDICAL CENTER | Streets | | | + + + + + documented in this encounter Visit Diagnoses + + | Diagnosis | + + | Bleeding in early Unspecified hemorrhage in early , unspecified as | | to episode of care | + + documented in this encounter"
--- OUTSIDE RECORDS SUMMARY | ~2019-05-12 | XMS | Encounter Summary ---
Demographics + + + | Address | [address] | | | [place] [address] | + + + | Home Phone | | + + + | Preferred Language | Unknown | + + + | Marital Status | Single | + + + | Latter-Day Affiliation | NRP | + + + [...] | | Garrett | | [place] [address] | | + + + + + | Gracie Turcios | ECON | [place] | | + + + + + Care Team Providers + +------+ + | Care Cannon Fire Direction Specialist Name | Role | Phone | + +------+ + | Anisha Rivera | PCP | | + +------+ + Encounter Details +--------+------+ + + + | Date | Type | Department | Care Team | Description | +--------+------+ + + + | 01/05/ | Lab | Laboratory at | | Encounter for | | 2018 | | [place] | | supervision of high | | | | [facility] [address] | | risk in | | | | [address] | | first trimester, | | | | [place], [place] | | antepartum; BMI | | | | [address] | | 40.0-44.9, adult | | | | [phone] | | (HCC) | +--------+------+ + + [...] | 0-3 | Neg, 0-3 /hpf | [facility] | | | | | [...] + + | [facility] | [place] | [place] [address] | [phone] | | MEDICAL CENTER | Streets | [...] 9.4 | 7.5 - 11.2 fL | [facility] | | | | | | A MEDICAL | | | | | | CENTER | | + + + + + + + + | Specimen | + + | Blood - Blood | | (substance) | + + + + + | Narrative | Performed At | + + + | No reflex rules apply to this test. | [facility] | | | MEDICAL CENTER | + + + + + + + + | Performing | Address | City/State/Zipcode | Phone Number | | Organization | | | | + + + + + | [facility] | [place] | [place] [address] | [phone] | | MEDICAL CENTER | Streets | [...] PROTEIN/CRE | 0.06 | <0.16 mg/mg | [facility] | | | ATININE | [...] | + + + + + | [facility] | And [place] | [place] [address] | [phone] | | MEDICAL CENTER | Streets | [...] clinically | [facility] | | indicated. | [facility] | + + + + + + + + | Performing | Address | City/State/Zipcode | Phone Number | | Organization | | | | + + + + + | [facility] | And | [place] [address] | [phone] | | MEDICAL CENTER | Streets | [...] | SOURCE | Clean catch | | [facility] | | | (URINALYSIS | | | [...] | [address] | [place] [address] | [phone] | | MEDICAL CENTER | Streets | [...] | | A MEDICAL | | | [place] | | | CENTER | | + [...] the MDRD equation recommended by the | [facility] | | National Kidney Disease Education Program. Estimated GFR | [facility] | | Interpretive Information: <60 [...] | + + + + + | [facility] | And | [place] [address] | [phone] | | MEDICAL [place] | Streets | | | + + + + + URIC ACID, PLASMA (01/05/2018 4:42 PM PDT) + +-------+ + + + | Component | Value | Ref Range | Performed | Pathologist | | | | | At | Signature | + +-------+ + + + | URIC ACID, | 3.5 | 2.4 - 5.7 mg/dL | [facility] | | | PLASMA | [...] + + | [facility] | And | [place] [address] | [phone] | | MEDICAL CENTER | Streets | | | + + + + + UREA NITROGEN, PLASMA (01/05/2018 4:42 PM PDT) + +-------+ + + + | Component | Value | Ref Range | Performed | Pathologist | | | | | At | Signature | + +-------+ + + + | BUN, PLASMA | 7 | 6 - 26 mg/dL | [facility] | | | (LAB) | [...] + + + + | [facility] | [address] | [place] [address] | [phone] | | MEDICAL CENTER | Streets | | | + + + + + HEMOGLOBIN A1C, BLOOD (01/05/2018 4:42 PM PDT) + +-------+ + + + | Component | Value | Ref Range | Performed | Pathologist | | | | | At | Signature | + +-------+ + + + | HEMOGLOBIN | 5.7 | % | [facility] | | | A1C | | | A MEDICAL | | | | | | CENTER | | + +-------+ + + + | ESTIMATED | 117 | mg/dL | [facility] | | | AVERAGE | [...] Diabetic Ranges per DCCT & ADA: | [facility] | | Normal Range: <6% [facility] | | Good Control: <7% | | | Additional action suggested: >8% Non-Diabetic | | | Ranges: 4-6% Property Management Bookkeeper's Glycohemoglobin | | | Diabetic Ranges: Normal Range: | | | 4.0-6.0% Good Control: | | | 6.0-8.0% Poor Control: | | | >8.0% | | + + + + + + + + | Performing | Address | City/State/Zipcode | Phone Number | | Organization | | | | + + + + + | [facility] | And | [place] [address] | [phone] | | [facility] | Streets | | | [...] | - [place] | | | | Assay([employer] | | | | | | [...] DIAGNOSTICS | [address] | [place] [address] | | | - [place] | [address] | | | + + [...] BLOOD BANK | | [place] [address] | | | | Streets | | [...] | and [place] | [place] [address] | | | | Streets | | [...] + + + | Test performed at [facility] | [facility] | | [address] | DIAGNOSTICS - | | [place] [address] | [place] | | Adobe Ball Mixer LISANDRA HUA MD | | + + + + + + + + | Performing | Address | City/State/Zipcode | Phone Number | | Organization | | | | + + + + + | [facility] | [address] | [place] [address] | | | - [place] | [address] | | | + + + + + TSH W/REFLEX TO FREE T4(IF ABNORMAL) (01/05/2018 4:42 PM PDT) + +-------+ + + + | Component | Value | Ref Range | Performed | Pathologist | | | | | At | Signature | + +-------+ + + + | TSH | 2.21 | 0.34 - 5.60 | [facility] | | | | | [...] th [address] [place] | [place] [address] | [phone] | | MEDICAL CENTER | Streets | [...] + | Interpretation: <10 IU/mL Non-Reactive/Non-Immune | [facility] | | >=10-<15IU/mL EQUIVOCAL >=15 IU/mL Reactive Immune | [facility] | | The following results [...] + + + + | [facility] | And | [place] [address] | [phone] | | [facility] | Streets | | | [...] + + | [facility] | And | [place] [address] | [phone] | | [facility] | Streets | | | [...] refer | | | | | | tohttp://education.[employer] | | | | | | diagnostics.Yasuu/faq/FAQ1 | | | | | | 06(This [...] + + | [facility] | [address] | [place] [address] | | | - [place] | [address] | | | + + [...] Elecsys HBsAg immunoassay may not be | [facility] | | used interchangeably with the values obtained with different [facility] | | manufacturers' assay methods. | | + + + + + + + + | Performing | Address | City/State/Zipcode | Phone Number | | Organization | | | | + + + + + | [facility] | And | [place] [address] | [phone] | | [facility] | Street | | | + + + + + documented in this encounter Visit Diagnoses + + | Diagnosis | + + | Encounter for supervision of high risk in first trimester, antepartum | + + | BMI 40.0-44.9, adult (HCC) Body Mass Index 40.0-44.9, adult | + + documented in this encounter"
--- OUTSIDE RECORDS SUMMARY | ~2019-05-12 | XMS | Encounter Summary ---
Demographics + + + | Address | [address] | | | [place] [address] | + + + | Home Phone [...] | | [place] | | [place] [address] | | + + + + + | Gracie Turcios | ECON | [place] | | + + + + + Care Team Providers + +------+ + | Care Medical Aide Name | Role | Phone | + [...] + + + + | 07/02/ | Telephone | [facility] | Royal Lopez MD | Obstetric US Scan | | 2019 | | [facility] [address] | [address] | | | | | [address] | [address] [place], [place] | | | | | [address] [place], [place] | [address] | | | | | [address] | [phone] | | | | | [phone] | | | +--------+ + + + [...]
--- OUTSIDE RECORDS SUMMARY | ~2019-05-12 | XMS | Encounter Summary ---
Demographics + + + | Address | [address] | | | [place] [address] | + + + | Home Phone [...] | | [place] | | [place] [address] | | + + + + + | Gracie Turcios | ECON | [place] | | + + + + + Care Team Providers + +------+ + | Care Parts Finisher Name | Role | Phone | [...] + + | 12/05/ | Telephone | [place] | Ti, | COLD | | 2017 | | [facility] [address] | MD Leon[address] | | | | | [address] | [address] | | | | | [address] [place], [place] | [place], [place] | | | | | [address] | [address] | | | | | [phone] | [phone] | | | | | | | [...]
--- OUTSIDE RECORDS SUMMARY | ~2019-05-12 | XMS | Clinical Summary ---
Demographics + + + | Address | [address] | | | [place] [address] | + + + | Home Phone [...] | | Tami | | [place] [address] | | + + + + + | Gracie Turcios | ECON | [place] | | + + + + + Care Team Providers + +------+ + | Care Tool Planner Name | Role | Phone | + +------+ + | Anisha Rivera | PCP | | + +------+ + Source Comments ALEKSANDER is fully live on both EpicCare Ambulatory and EpicCare InPatient.[facility] Allergies + + + + + + [...] | 50% of readings. Request made for associate veterinarian follow up. mp04/15/18 | | = 100% [...] [X] Pap: 01/07/18: neg[X] Urine Cx: Mixed [id number] WEEKS | | (Nuchal/Exam)Carrier Screening: [ x] CF-declines [ ] SMA | | -undecidedGenetic Screening: [ x] SequentialScreen: Negative[X] | | Nuchal U/S: mm[X] Flu Shot (Feb-May) 05/14/1816-18 WEEKS[X] | | 2nd Sequential Screen [ ] MSAFP [ ] [id number] WEEKS[X] Ultrasound | | 19-20 weeks: SEX: [...] | x | 18-Pre | 8 | [address] | | | | | | sent | | [place], | | | | | | | | [place] | | | | | | | | [address] | | + +--------+ +--------+ + +------+ | BLUE CROSS BLUE | REGENC | [phone] | 11/15/19 | [phone] | [address] | PPO | | SHIELD | E BCBS | x | 16-Pre | 8 | [address] | | | | | | sent | | [place], | | | | | | | | [place] | | | | | | | | [address] | | + +--------+ +--------+ + +------+ + +--------+ +--------+ + + | Guarantor Name | Accoun | Relation to | Date | Phone | Billing Address | | | t Type | Patient | of | | | | | | | | | | + +--------+ +--------+ + + | Elizabet Turcios | Person | Self | [birth year] | | [address] | | [place] | al/Fam | | 1994 | [phone] | [facility] [place] [address] | | | miguel | | | 0 (Home) | | + +--------+ +--------+ + + | Elizabet Turcios | Person | Self | [birth year] | | [address] | | [place] | al/Fam | | 1994 | [phone] | [place] [address] | | | miguel | | | [...]
--- OUTSIDE RECORDS SUMMARY | ~2019-05-12 | XMS | Encounter Summary ---
Demographics + + + | Address | [address] | | | [place] [address] | + + + | Home Phone [...] | | [place] | | [place] [address] | | + + + + + | Gracie Turcios | ECON | [place] | | + + + + + Care Team Providers + +------+ + | Care Bisque Placer Name | Role | Phone | + [...] + + | 11/24/ | Telephone | [place] | Pentopoulos, | Medication | | 2018 | | [facility] [address] | MD [address]ela [address] | | | | | [address] | [address] | | | | | [address] [place], [place] | [place], [place] | | | | | [address] | [address] | | | | | [phone] | [phone] | | | | | | | [...]
--- OUTSIDE RECORDS SUMMARY | ~2019-05-12 | XMS | Encounter Summary ---
Demographics + + + | Address | [address] | | | [place] [address] | + + + | Home Phone [...] | | [place] | | [place] [address] | | + + + + + | Gracie Turcios | ECON | [place] | | + + + + + Care Team Providers + +------+ + | Care Thread Singer Name | Role | Phone | + [...] + + + | 04/15/ | | [place] | Pentopoulos, | Other (Blood sugar | | 2018 | | [facility] [address] | MD Leonela [address] | review); | | | | [address] | [address] | | | | | [address] [place], [place] | [place], [place] | | | | | [address] | [address] | | | | | [phone] | [phone] | | | | | | | [...] in this encounter Patient Instructions Patient Instructions Leonlea Luke MD - 04/15/2018 7:45 AM PDTAs [...] Luke MD - 04/15/2018 7:45 AM PDTS: Elizabet is a at 26w0d who pr esents [...]
--- OUTSIDE RECORDS SUMMARY | ~2019-05-12 | XMS | Encounter Summary ---
Demographics + + + | Address | [address] | | | [place] [address] | + + + | Home Phone [...] | | Garrett | | [place] [address] | | + + + + + | Gracie Turcios | ECON | [place] | | + + + + + Care Team Providers + +------+ + | Care Food Sales Clerk Name | Role | Phone | + +------+ + | Anisha Rivera | PCP | | + +------+ + Encounter Details +--------+------+ + + + | Date | Type | Department | Care Team | Description | +--------+------+ + + + | 09/28/ | Lab | Laboratory at | | | | 2018 | | [facility] | | | | | | Center [address] | | | | | | St [place] | | | | | | [address] | | | +--------+------+ + + + [...]
--- OUTSIDE RECORDS SUMMARY | ~2019-05-12 | XMS | Encounter Summary ---
Demographics + + + | Address | [address] | | | [place] [address] | + + + | Home Phone [...] Author + + + | Author | [facility] | + + + | Organization | [facility] | + + + | Address | Unknown | + + + | Phone | Unavailable | + + + Support + + + + + | Name | Relationship | Address | Phone | + + + + + | Anderson Rose | ECON | [address] | | | [place] | | [place] [address] | | + + + + + | Gracie Turcios | ECON | [place] | | + + + + + Care Team Providers + +------+ + | Care Ob Nurse Name | Role | Phone | + [...] + + + | 05/14/ | | [place] | | Obstetric US Scan | | 2018 | | [facility] [address] | | | | | | E [facility] | | | | | | [address] [place], [place] | | | | | | [address] | | | | | | [phone] | | | +--------+ + + + [...] 32 weeks. Performed | | | by internal medicine veterinary technician. Type of ultrasound: ABDOMINAL. Read by [...]
--- OUTSIDE RECORDS SUMMARY | ~2019-05-12 | XMS | Encounter Summary ---
Demographics + + + | Address | [address] | | | [place] [address] | + + + | Home Phone [...] | | [place] | | [place] [address] | | + + + + + | Gracie Bullock | ECON | [place] | | + + + + + Care Team Providers + +------+ + | Care Cutter Hand Name | Role | Phone | + +------+ + | Ryan Rivera | PCP | | + +------+ + Encounter Details +--------+ + + + + | Date | Type | Department | Care Team | Description | +--------+ + + + + | 02/11/ | Hospital | Diagnostic Imaging | Ryan Rivera, | | | 2016 | Encounter | at [facility] | AIR HOSE COUPLER [address] | | | | | [address] The | [place], [place] | | | | | [place], [place] | [address] | | | | | [address] | [phone] | | | | | [phone] | | | +--------+ + + + [...] + +--------+ + + + | X-RAY SPINE | Routin | 02/11/2017 | Chronic midline | Results for this | | THORACOLUMBAR 2 | e | 9:21 AM | low back pain | procedure are in the | | VIEWS | | PDT | without sciatica | results section. | + +--------+ + + + documented in this encounter Results X-RAY SPINE THORACOLUMBAR 2 VIEWS (02/11/2017 9:21 AM PDT) + + | Specimen | + + | | + + + + + | Narrative | Performed At | + + + | [address] [place] [address] | [facility] | | [place] [address] | DEPARTMENT OF | | [phone] Name: YOLY BULLOCKELLE Phys: | RADIOLOGY | | RYAN ZAPIEN : 1995 Sex: F | | | CSN: [id number] MR# [id number] Exam Date: | | | 02/11/2017 EXAM: X-RAY SPINE THORACOLUMBAR 2 VIEWS 45228 | | | CLINICAL HISTORY: Back pain [...] Transcribed Date/Time: 02/11/2017 | | | 09:57 Waterway Traffic Checker: ALESIA | | + + + + + | Procedure Note | + + | Interface, Radiology Results - 02/11/2017 10:02 AM PDT [address] | | [place] [address] | | Name: ARAFRANK Phys: RYAN ZAPIEN : 1995 Sex: | | F CSN: [id number] MR# [id number] Exam Date: 02/11/2017 EXAM:X-RAY SPINE | | THORACOLUMBAR 2 VIEWS 56007 CLINICAL HISTORY:Back pain near L1, access lordosis, [...] |EXAM: | |X-RAY SPINE THORACOLUMBAR 2 VIEWS 66233 | | | |CLINICAL HISTORY: | |Back [...] | | |Transcribed Date/Time: 02/11/2017 09:57 | |Waterway Traffic Checker: FLUENCY | | | | | | [...]
--- OUTSIDE RECORDS SUMMARY | ~2019-05-12 | XMS | Encounter Summary ---
Demographics + + + | Address | [address] | | | [place] [address] | + + + | Home Phone [...] | | Garrett | | [place] [address] | | + + + + + | Gracie Turcios | ECON | [place] | | + + + + + Care Team Providers + +------+ + | Care Environmental Tech Name | Role | Phone | [...] + + + | 06/22/ | | [place] | | monitoring | | 2019 | | [facility] [address] | | | | | | E [facility] | | | | | | [address] [place], [place] | | | | | | [address] | | | | | | [phone] | | | +--------+ + + + [...] and she will drive over to the [facility] parking lot. documented in this encounter Plan [...]
--- OUTSIDE RECORDS SUMMARY | ~2019-05-12 | XMS | Encounter Summary ---
Demographics + + + | Address | [address] | | | [place] [address] | + + + | Home Phone [...] | | [place] | | [place] [address] | | + + + + + | Gracie Turcios | ECON | [place] | | + + + + + Care Team Providers + +------+ + | Care Industrial Controller Name | Role | Phone | + +------+ + | Anisha Rivera | PCP | | + +------+ + Encounter Details +--------+------+ + + + | Date | Type | Department | Care Team | Description | +--------+------+ + + + | 01/07/ | Lab | Laboratory at | | Elevated hemoglobin | | 2017 | | [facility] | | A1c; High-risk | | | | Center [address] | | in first | | | | [place] | | trimester | | | | [address] | | | +--------+------+ + + + [...] | [facility] | | | [address] | | | [place] [address] | | + + + + + [...] | 183 (H) | <130 mg/dL | [facility] | | | GLUCOSE - | | [...] for the diagnosis of gestational diabetes | [facility] | | only. | MEDICAL [facility]ENTER | + + + + + + + + | Performing | Address | City/State/Zipcode | Phone Number | | Organization | | | | + + + + + | [facility] | And | [place] [address] | [phone] | | [facility] | Streets | | | + + + + + documented in this encounter Visit Diagnoses + + | Diagnosis | + + | Elevated hemoglobin A1c Other abnormal blood chemistry | + + | High-risk in first trimester | + + documented in this encounter"
--- OUTSIDE RECORDS SUMMARY | ~2019-05-12 | XMS | Encounter Summary ---
Demographics + + + | Address | [address] | | | [place] [address] | + + + | Home Phone [...] | | Garrett | | [place] [address] | | + + + + + | Gracie Turcios | ECON | [place] | | + + + + + Care Team Providers + +------+ + | Care Lithostripper Name | Role | Phone | + [...] + + + | 06/25/ | | [place] | | monitoring | | 2019 | | [facility] [address] | | | | | | E [facility] | | | | | | [address] [place], [place] | | | | | | [address] | | | | | | [phone] | | | +--------+ + + + [...] PM PSTNST: 23 y.o. at 36w1d weeks [facility]. Indications for monitoring: GDM on insulin, BMI [...]
--- OUTSIDE RECORDS SUMMARY | ~2019-05-12 | XMS | Encounter Summary ---
Demographics + + + | Address | [address] | | | [place] [address] | + + + | Home Phone | | + + + | Preferred Language | Unknown | + + + | Marital Status | Single | + + + | Confucianist Affiliation | NRP | + + + [...] | | [place] | | [place] [address] | | + + + + + | Gracie Turcios | ECON | [place] | | + + + + + Care Team Providers + +------+ + | Care Balance Wheel Motion Inspector Name | Role | Phone | [...] + + + | 01/21/ | | [place] | | care (FSBS | | 2018 | | [facility] [address] | | review) | | | | E [facility] | | | | | | [address] [place] | | | | | | [address] | | | | | | [phone] | | | +--------+ + + + [...]
--- OUTSIDE RECORDS SUMMARY | ~2019-05-12 | XMS | Encounter Summary ---
Demographics + + + | Address | [address] | | | [place] [address] | + + + | Home Phone [...] | | [place] | | [place] [address] | | + + + + + | Gracie Turcios | ECON | [place] | | + + + + + Care Team Providers + +------+ + | Care Linoleum Layer Name | Role | Phone | [...] | anned | Medicine [address] | FARM LOAN REPRESENTATIVE [address] | | | | | [address] [place], | [place], [place] | | | | | [place] [address] | [address] | | | | | [phone] | [phone] | | | | | | | [...]
--- OUTSIDE RECORDS SUMMARY | ~2019-05-12 | XMS | Encounter Summary ---
Demographics + + + | Address | [address] | | | [place] [address] | + + + | Home Phone [...] + + + | Author | [facility] | + + + | Organization | [facility] | + + + | Address | Unknown | + + + | Phone | Unavailable | + + + Support + + + + + | Name | Relationship | Address | Phone | + + + + + | Anderson Rose | ECON | [address] | | | [place] | | [place] [address] | | + + + + + | Gracie Turcios | ECON | [place] | | + + + + + Care Team Providers + +------+ + | Care Industrial Relations Analyst Name | Role | Phone | [...] [place] | | | | | | [address] | | | | | | [phone] | | | +--------+------+ + + + [...] >8% Non-Diabetic | | | Ranges: 4-6% Salesperson [employer]'s Glycohemoglobin | | | Diabetic Ranges: Normal Range: | | | 4.0-6.0% Good Control: | | | 6.0-8.0% Poor Control: | | | >8.0% | | + + + + + + + + | Performing | Address | City/State/Zipcode | Phone Number | | Organization | | | | + + + + + | [facility] | And | [place] [address] | [phone] | | [facility] | Streets | | | + + + + + documented in this encounter Visit Diagnoses + + | Diagnosis | + + | Prediabetes Other abnormal glucose | + + documented in this encounter"
--- OUTSIDE RECORDS SUMMARY | ~2019-05-12 | XMS | Encounter Summary ---
Demographics + + + | Address | [address] | | | [place] [address] | + + + | Home Phone [...] | | [place] | | [place] [address] | | + + + + + | Gracie Turcios | ECON | [place] | | + + + + + Care Team Providers + +------+ + | Care Assistant Production Editor Name | Role | Phone | [...] + + + | 03/12/ | | [place] | | Glucose Measurement, | | 2018 | | [facility] | | Blood | | | | E | | | | | | [address] [place], [place] | | | | | | [address] | | | | | | [phone] | | | +--------+ + + + [...] 140. Plan to keep her appointment at [facility] 03/16/18 at 2:00 pm and see MP [...]
--- OUTSIDE RECORDS SUMMARY | ~2019-05-12 | XMS | Encounter Summary ---
Demographics + + + | Address | [address] | | | [place] [address] | + + + | Home Phone [...] Author + + + | Author | [facility] | + + + | Organization | [facility] | + + + | Address | Unknown | + + + | Phone | Unavailable | + + + Support + + + + + | Name | Relationship | Address | Phone | + + + + + | Anderson Rose | ECON | [address] | | | [place] | | [place] [address] | | + + + + + | Gracie Turcios | ECON | [place] | | + + + + + Care Team Providers + +------+ + | Care Leather Products Supervisor Name | Role | Phone | [...] + + + | 02/04/ | | [place] | Kapil Rutherford, | | | 2018 | | [facility] [address] | CN[facility] [address] | | | | | E [address] | [address] [address] | | | | | [address] [place], [place] | [place], [place] | | | | | [address] | [address] | | | | | [phone] | [phone] | | | | | | | [...] cannot see ev erything and thus cannot spanish moss picker all problems, it can provide us with [...] after it's coupled with more information, may: outgoing inspector to be nothing. outgoing inspector to be something mild that won't affect the baby. outgoing inspector to be something more serious. But if [...] stress you feel. Follow-up care is a emesron part of your treatment and safety. Be [...] your My Chart account at [email or web address]. You can enter I453 in the "Health Library" [facility] box. Not on MyChart? Review the MyChart section of your After Visit Summary for directions on [place] to sign up. Current as of: May 06, 2017 Content Version: 11.7 5522-8037 [employer]. Care instructions adapted under license by [facility] [place]. If you have questions about a medical condition or this instr uction, always ask your healthcare professional. [employer] disclaims any frederic anty or liability for [...] it. Blood sugars at RN visit and chief order dispatcher were in good ran ge. She states [...]
--- OUTSIDE RECORDS SUMMARY | ~2019-05-12 | XMS | Encounter Summary ---
Demographics + + + | Address | [address] | | | [place] [address] | + + + | Home Phone [...] | | [place] | | [place] [address] | | + + + + + | Gracie Turcios | ECON | [place] | | + + + + + Care Team Providers + +------+ + | Care Spoon Maker Name | Role | Phone | [...] + + | 07/02/ | Telephone | [facility] | Royal Lopez MD | Obstetric US Scan | | 2019 | | [facility] [address] | [address] [place] | | | | | E [address] | [address] [place], [place] | | | | | [address] [place], [place] | [address] | | | | | [address] | [phone] | | | | | [phone] | | | +--------+ + + + [...]
--- OUTSIDE RECORDS SUMMARY | ~2019-05-12 | XMS | Encounter Summary ---
Demographics + + + | Address | [address] | | | [place] [address] | + + + | Home Phone [...] | | [place] | | [place] [address] | | + + + + + | Gracie Turcios | ECON | [place] | | + + + + + Care Team Providers + +------+ + | Care Gas Meter Installer Name | Role | Phone | [...] | Visit | Medicine [address] | SENIOR FRONT END WEB DEVELOPER [address] | Dx); Encounter for | | | | [place], | [place], [place] | surveillance of | | | | [place] [address] | [address] | transdermal patch | | | | [phone] | [phone] | hormonal | | | | | [...] range. She reports she met with a dermatology procedural physician twice during this time for further education [...] 3.2 oz) | SpO2 99% | B GA 46.49 kg/m | BSA 2.25 m Physical [...] verbal counseling for above conditions. Anisha GIBSON, [facility] Family Medicine [facility] P: [phone] F: [phone] documented in this encounter Plan of Treatment [...]
--- OUTSIDE RECORDS SUMMARY | ~2019-05-12 | XMS | Encounter Summary ---
Demographics + + + | Address | [address] | | | [place] [address] | + + + | Home Phone [...] | | [place] | | [place] [address] | | + + + + + | Gracie Turcios | ECON | [place] | | + + + + + Care Team Providers + +------+ + | Care Maintenance And Engineering Manager Name | Role | Phone | [...] | | | | | | [place] [address] | | | | | | [phone] | | | +--------+ + + + [...]
--- OUTSIDE RECORDS SUMMARY | ~2019-05-12 | XMS | Encounter Summary ---
Demographics + + + | Address | [address] | | | [place] [address] | + + + | Home Phone [...] | | [place] | | [place] [address] | | + + + + + | Gracie Turcios | ECON | [place] | | + + + + + Care Team Providers + +------+ + | Care Low Vision Therapist Name | Role | Phone | [...] bronchitis, acute | | | | [place], | [place], [place] | (Primary Dx) | | | | [place] [address] | [address] | | | | | [phone] | [phone] | | | | | | | [...] Posadas PA - 10/08/2016 3:00 PM PDT [facility] [address] [place] [address] Patient: [...]
--- OUTSIDE RECORDS SUMMARY | ~2019-05-12 | XMS | Encounter Summary ---
Demographics + + + | Address | [address] | | | [place] [address] | + + + | Home Phone [...] | | [place] | | [place] [address] | | + + + + + | Gracie Turcios | ECON | [place] | | + + + + + Care Team Providers + +------+ + | Care Cleater Name | Role | Phone | + [...] + + + | 08/27/ | | [place] | Natasha Jones, | care | | 2019 | | [facility] [address] | [address] , | | | | | [address] [place], [place] | | | | | [address] [place], [place] | [address] | | | | | [address] | [phone] | | | | | [phone] | | | +--------+ + + + [...] eating high-fiber foods. Ask your doctor about kpft-kel-pbzsgdn stool softeners. Cleanse yourself with a gentle [...] few days after delivery. 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 Stay flexible [...] Period): Care Instructions", log i nto your [employer] account at [email or web address]. You can enter A461 in the "Health L ibrhalbur" search box. Not on [employer]? Review the [employer] section of your After Visit Summary for directions on ho w to sign up. Current as of: February 18, 2018 Content Version: .[id number] [employer]. Care instructions adapted under license by [facility] [place]. If you have questions about a medical condition or this instr uction, always ask your healthcare professional. [employer] disclaims any frederic anty or liability for [...] leg. 7. Repeat 8 to 12 times. Abwu-hv-nghjj stretch 1. Lie on your back with [...] about "After : Exercises", log into your [employer] account at [email or web address]. You can enter X152 in the "Health Library" search box. Not on MyChart? Review the MyChart section of your After Visit Summary for directions on jean-claude vivian to sign up. Current as of: February 18, 2018 Content Version: 11.9 0193-0996 [employer]. Care instructions adapted under license by [facility] [place]. If you have questions about a medical condition or this instr uction, always ask your healthcare professional. [employer] disclaims any frederic anty or liability for [...] time Been anxious or worried: 2-yes, sometimes [place] scared or panicky: 2-yes, sometimes Things getting on top: 1-no, most of the time has coped quite well So unhappy having difficulty sleepin-not very often [place] sad or miserable: 1-not very often So [...]
--- OUTSIDE RECORDS SUMMARY | ~2019-05-12 | XMS | Encounter Summary ---
Demographics + + + | Address | [address] | | | [place] [address] | + + + | Home Phone [...] | | [place] | | [place] [address] | | + + + + + | Gracie Bullock | ECON | [place] | | + + + + + Care Team Providers + +------+ + | Care Family Law Paralegal Name | Role | Phone | + +------+ + | Ryan Rivera | PCP | | + +------+ + Encounter Details +--------+ + + + + | Date | Type | Department | Care Team | Description | +--------+ + + + + | 02/11/ | Hospital | Diagnostic Imaging | Ryan Rivera, | | | 2016 | Encounter | at [facility] | AROMATHERAPIST [address] | | | | | [address] The | [place], [place] | | | | | [place], [place] | [address] | | | | | [address] | [phone] | | | | | [phone] | | | +--------+ + + + [...] | + + + | [address] [place] [address] | [facility] | | [place] [address] | DEPARTMENT OF | | [phone] Name: YOLY BULLOCKELLE Phys: | RADIOLOGY | | RYAN ZAPIEN : 1995 Sex: F | | | CSN: [id number] MR# [id number] Exam Date: | | | 02/11/2017 EXAM: X-RAY SPINE THORACOLUMBAR 2 VIEWS 41416 | | | CLINICAL HISTORY: Back pain [...] Transcribed Date/Time: 02/11/2017 | | | 09:57 Archaeologist: ALESIA | | + + + + + | Procedure Note | + + | Interface, Radiology Results - 02/11/2017 10:02 AM PDT [address] | | [place] [address] | | Name: ARAFRANK Phys: RYAN ZAPIEN : 1995 Sex: | | F CSN: [id number] MR# [id number] Exam Date: 02/11/2017 EXAM:X-RAY SPINE | | THORACOLUMBAR 2 VIEWS 89125 CLINICAL HISTORY:Back pain near L1, access lordosis, [...] |EXAM: | |X-RAY SPINE THORACOLUMBAR 2 VIEWS 58847 | | | |CLINICAL HISTORY: | |Back [...] | | |Transcribed Date/Time: 02/11/2017 09:57 | |Archaeologist: FLUENCY | | | | | | [...]
--- OUTSIDE RECORDS SUMMARY | ~2019-05-12 | XMS | Encounter Summary ---
Demographics + + + | Address | [address] | | | [place] [address] | + + + | Home Phone [...] | | Garrett | | [place] [address] | | + + + + + | Gracie Turcios | ECON | [place] | | + + + + + Care Team Providers + +------+ + | Care Letter Of Credit Document Examiner Name | Role | Phone | + +------+ + | Anisha Rivera | PCP | | + +------+ + Reason for Visit + + + | Reason | Comments | + + + | Follow-up visit | | + + + Encounter Details +--------+---------+ + + + | Date | Type | Department | Care Team | Description | +--------+---------+ + + + | 10/15/ | Office | [facility] | Constance Posadas | Cough due to | | 2017 | Visit | Medicine [address] | [address] Malhotra [address] | bronchospasm | | | | [address] [place], | [place], [place] | (Primary Dx); | | | | [place] [address] | [address] | Non-seasonal | | | | [phone] | [phone] | allergic rhinitis, | | | | | | unspecified allergic | | | | | | rhinitis trigger | +--------+---------+ + + + Social History [...] + + + | Blood Pressure | 114/66 | 10/15/2016 10:26 AM | | | | | PDT | | + + + + + | Pulse | 80 | 10/15/2016 10:26 AM | | | | | PDT | | + + + + + | Temperature | 36.8 C (98.3 F) | 10/15/2016 10:26 AM | | | | | PDT | | + + + + + | Respiratory Rate | - | - | | + + + + + | Oxygen Saturation | 99% | 10/15/2016 10:26 AM | | | | | PDT | | + + + + + | Inhaled Oxygen | - | - | | | Concentration | | | | + + + + + | Weight | 105.7 kg (233 lb) | 10/15/2016 10:26 AM | | | | | PDT | | + + + + + | Height | - | - | | + + + + + | Body Mass Index | 41.27 | 10/08/2016 2:46 PM | | | | | PDT | | + + + + + documented in this encounter Patient Instructions Patient Instructions Constance Posadas PA - 10/15/2016 10:30 AM PDT* Continue using QVAR twice daily, but increase to 3 puffs each dose. * Use albuterol as needed. * Add in Singular once daily (Montelukast) for allergies. * Avoid known allergy triggers as much as possible. * Limit your exposure to pet dander and smoke as much as possible. Here are some ways you can decrease allergic exposure in your sleeping environment: The most important thing you can do is decrease the dust around your bed: Wash sheets, pillowcases, and other bedding every week in hot water. Use airtight, dust-proof covers for pillows, duvets, and mattresses. Avoid plastic cover s because they tend to tear quickly and do not "breathe." Wash according to the instructions . Remove extra blankets and pillows that you don't need. Use blankets that are machine-washable. Look for "dust catchers" in your room. Cloth-covered furniture, heavy drapes, juárez an d houseplants, bookshelves, blinds, and stuffed animals collect dust and should be removed o r wiped down with a wet cloth every week. Use a wooden or metal chair instead of an upholstered one. If you need to cover the windows, use lightweight curtains. Wash them every week with th e bedding. Mop floors and wipe down furniture, tables, and other hard surfaces with a moist cloth 1 or 2 times a week. Change the air filter in your furnace every month. Use high-efficiency air filters. Keep the windows closed. Do not use window or attic fans, which draw dust into the air. Do not use home humidifiers. They can help mites live longer. Your doctor can give you f urther instructions on how to control dust and mites. Keep only clothes in the closet. Do not leave clothes on the floor. If possible, replace [id number]-iq-[id number] carpet in bedrooms with tile, hardwood, or linoleum. Y ou can use throw rugs as long as you wash them often. If you cannot remove carpeting, vacuum it at least 2 times a week. Use a vacuum rope cleaner with a HEPA filter or a special double-thi ckness filter. Keep your child out of the room for several hours after you vacuum. Get a HEPA filter for your room if you are able. documented in this encounter Progress Notes Constance Posadas PA - 10/15/2016 10:30 AM PDT [facility] [address] [place] [address] Patient: Elizabet Turcios : 1995 PCP: ARTHUR Waters CHIEF COMPLAINT Chief Complaint Patient presents with Follow-up visit HPI Elizabet Turcios is a 21 y.o. female who presents with f/u of cough and wheezing s econdary to URI x 3 weeks. Cough and some wheezing/SOB still persist, though other symptoms has resolved ans he feels otherwise well. There has been no fever. The worst episode of co ughing and SOB occurred 2 days ago when she picked up and carried a bag of grass, which she is allergic to. She then went into a coughing fit, had SOB and was vomiting. She has gradual ly improved since then. She has been using the QVAR and albuterol inhalers since her last v isit. She has not been on her allergy medication regularly. Symptoms are worse at night when in her home and when exerting herself. Patient has no history of asthma or other respiratory problem, but does have year round all ergic rhinitis. Treatments provided prior to arrival: tessalon pearls and inhalers. Sick contacts or recen t exposures: boyfriend. Patient is regularly exposed to marijuana smoke and pets in her home . REVIEW OF SYSTEMS Review of Systems Constitutional: Positive for fatigue. Negative for fever. HENT: Positive for congestion and sneezing. Negative for ear pain and sore throat. Eyes: Negative for discharge, redness and itching. Respiratory: Positive for cough, chest tightness, shortness of breath and wheezing. Gastrointestinal: Negative for abdominal pain, diarrhea and vomiting. Skin: Negative for rash. Neurological: Negative for syncope, weakness, numbness and headaches. PROBLEM LIST There are no active problems to display for this patient. CURRENT MEDICATIONS Current Medications Patient is Taking: Albuterol Sulfate Hfa 90 Mcg/actuation Aerosol Inhaler - Inhale 1-2 puffs by mouth ever y four hours as needed. Beclomethasone Dipropionate 40 Mcg/actuation Aerosol Inhaler - Inhale 2 puffs two times daily. Benzonatate 100 Mg Capsule - 1-2 capsules three times daily as needed for cough. Triamcinolone Acetonide 0.1 % Topical Ointment - Montelukast 10 Mg Tablet - Take 1 tablet by mouth once daily in the evening for 30 days . Indications: Allergic Rhinitis Reviewed. ALLERGIES Allergies Allergen Reactions Peanut Anaphylaxis Lactose Stomach Upset Reviewed, no change. PHYSICAL EXAM VITAL SIGNS: BP 114/66 | Pulse 80 | Temp (Src) 36.8 C (98.3 F) (Oral) | Wt 105.7 kg (23 3 lb) | SpO2 99% | BMI 41.27 kg/(m^2) General: Well developed, well nourished 20 [...] past 4 hour(s)). Orders Placed This Encounter montelukast 10 mg oral tablet ASSESSMENT & PLAN 1. Cough due to bronchospasm 2. Non-seasonal allergic rhinitis, unspecified allergic rhinitis trigger Patient with year round allergic rhinitis and recent post URI bronchospasm presents with im proved, but ongoing symptoms. Symptoms are worse with allergen exposure including grass, pet s, and smoke. I've recommended increases daily QVAR as this has helped her symptoms some, al lergen avoidance, and adding in singular daily. She will f/u in 2 weeks for a recheck. The p atient is nontoxic and looks well clinically. Currently there is no significant shortness o f breath, dysphagia, oropharyngeal asymmetry, or other red flags in regards to symptoms or p hysical exam. Follow up: Return in about 2 weeks (around 10/29/2016). The patient voices her understanding, agreement, and ability with these discharge instructi ons. documented in this encounter Plan of Treatment Not on filedocumented as of this encounter Visit Diagnoses + + | Diagnosis | + + | Cough due to bronchospasm - Primary Acute bronchospasm | + + | Non-seasonal allergic rhinitis, unspecified allergic rhinitis trigger | + + documented in this encounter
--- OUTSIDE RECORDS SUMMARY | ~2019-05-12 | XMS | Encounter Summary ---
Demographics + + + | Address | [address] | | | [place] [address] | + + + | Home Phone [...] | + + + + + | Adnerson Rose | ECON | [address] | | | [place] | | [place] [address] | | + + + + + | Gracie Turcios | ECON | [place] | | + + + + + Care Team Providers + +------+ + | Care Buttermilk Drier Operator Name | Role | Phone | [...] bronchospasm | | | | [address] [place], | [place], [place] | (Primary Dx); | | | | [place] [address] | [address] | Non-seasonal | | | | [phone] | [phone] | allergic rhinitis, | | | | [...] clothes on the floor. If possible, replace xflf-ie-wunv carpet in bedrooms with tile, hardwood, or linoleum. Y ou can use throw rugs as long as you wash them often. If you cannot remove carpeting, vacuum it at least 2 times a week. Use a vacuum cleaner furniture with a HEPA filter or a special double-thi ckness filter. Keep your child out of the room for several hours after you vacuum. Get a HEPA filter for your room if you are able. documented in this encounter Progress Notes Constance Posadas PA - 10/15/2016 10:30 AM PDT [facility] [address] [place] [address] Patient: Elizabet Turcios : 1995 PCP: ARTHUR [...]
--- OUTSIDE RECORDS SUMMARY | ~2019-05-12 | XMS | Encounter Summary ---
Demographics + + + | Address | [address] | | | [place] [address] | + + + | Home Phone [...] | Anderson Rose | ECON | [address] | | | Tami | | [place] [address] | | + + + + + | Gracie Turcios | ECON | [place] | | + + + + + Care Team Providers + +------+ + | Care Senior Technical Specialist Name | Role | Phone | [...]
--- OUTSIDE RECORDS SUMMARY | ~2019-05-12 | XMS | Encounter Summary ---
Demographics + + + | Address | [address] | | | [place] [address] | + + + | Home Phone [...] | | [place] | | [place] [address] | | + + + + + | Gracie Turcios | ECON | [place] | | + + + + + Care Team Providers + +------+ + | Care Keno Writer / Runner Name | Role | Phone | + [...] + + | 07/17/ | Anesthesia | [facility] | [place] | | | 2019 | Event | [facility] [address] | | | | | [address] | | | | | | [place] | | | | | | [address] | | | +--------+ + + + + Anesthesia Record + + + + + | Procedure Name | Responsible | Anesthesia Start | Anesthesia Stop Time | | | Anesthesiologist | Time | | + + + + + | urgent | [place], | 07/17/184 | 07/17/18 8974 | | (N/A Abdomen) | MD | [...]
--- OUTSIDE RECORDS SUMMARY | ~2019-05-12 | XMS | Encounter Summary ---
Demographics + + + | Address | [address] | | | [place] [address] | + + + | Home Phone [...] | | [place] | | [place] [address] | | + + + + + | Gracie Turcios | ECON | [place] | | + + + + + Care Team Providers + +------+ + | Care Maintenance Superintendent Name | Role | Phone | + [...] + + + | 07/31/ | | [facility] | Natasha Jones, | care (2wk | | 2019 | | [facility] [address] | ppv) | | | | [address] [place], [place] | | | | | [address] [place], [place] | [address] | | | | | [address] | [phone] | | | | | [phone] | | | +--------+ + + + [...] often Been anxious or worried: 2-yes, sometimes [place] scared or panicky: 1-no, not much Things getting on top: 1-no, most of the time has coped quite well So unhappy having difficulty sleepin-no, not at all [place] sad or miserable: 1-not very often So [...]
--- OUTSIDE RECORDS SUMMARY | ~2019-05-12 | XMS | Encounter Summary ---
Demographics + + + | Address | [address] | | | [place] [address] | + + + | Home Phone [...] | | [place] | | [place] [address] | | + + + + + | Gracie Turcios | ECON | [place] | | + + + + + Care Team Providers + +------+ + | Care Collar Folder Operator Name | Role | Phone | + +------+ + | Anisha Rivera | PCP | | + +------+ + Encounter Details +--------+ + + + + | Date | Type | Department | Care Team | Description | +--------+ + + + + | 04/19/ | Hospital | Maternity Services | Kapil Rutherford, | | | 2018 - | Encounter | at [facility] | CNM [address] | | | | | [address] | [address] | | | 04/20/ | | [place], [place] | [place], [place] | | | 2017 | | [address] | [address] | | | | | [phone] | [phone] | | | | | | | | | | | | Pentopoulos, | | | | | | MD Heath [address] | | | | | | | | | | | | [place], [place] | | | | | | [address] | | | | | | [phone] | | | | | | | [...] to Call (After 20 Weeks): General Info ([place])documented in this encounter Progress Notes Heath Valenzuela [...] | + + + + + | [facility] | And | [place] [address] | [phone] | | MEDICAL [place] | Streets | | | + + [...] MEDICAL CENTER | And | [place] [address] | [phone] | | MEDICAL CENTER | Street | | | + + + + + documented in this encounter Visit Diagnoses Not on filedocumented in this encounter"
--- OUTSIDE RECORDS SUMMARY | ~2019-05-12 | XMS | Encounter Summary ---
Demographics + + + | Address | [address] | | | [place] [address] | + + + | Home Phone [...] | | [place] | | [place] [address] | | + + + + + | Gracie Turcios | ECON | [place] | | + + + + + Care Team Providers + +------+ + | Care Engine Oiler Name | Role | Phone | + [...] + + + | 01/05/ | | [place] | | care (OB | | 2018 | Initial | [facility] [address] | | Nurse Intake Visit) | | | | [address] | | | | | | [address] [place], [place] | | | | | | [address] | | | | | | [phone] | | | +--------+ + + + [...] 3:24 PM PDT Initial Visit Welcome to [facility] [place]! This is the first of several messages that will be a part of your After Visit Summary (AVS) . It s a long one, so take your time. We re so happy you ve chosen us to guide you t hrough your . Please read chapters 3 and 25 in your book. How do I reach my provider? Have you signed up for [employer] ? It s the best way to communicate with us for your non-urgent needs. Head to this address to sign up: [email or web address] You will need the activation code you were given at your first visit, your medical record n umber, and your date of . The activation codes after 45 days. If you need a new one please ask any of our front desk worker staff or give us a call and we can provide over the milan ne! We ll try hard to answer your messages within 2-3 business days. Our main phone iris cornejo is [phone]. The phone lines operate from 8:00am-5:00pm. If [...] take a second look at our Plate; Casual Steps Blue Print that you received at your [...] such as orange juice, cereals, and breads. [place]-3 Fatty Acids Polyunsaturated fatty acids of the [...] protein. Get a healthy cookie or cracker (Historical Records Administrator Yfn vieira has a manolo snap cooki [...] elastic bracelet that utilizes acupressure theory from [facility] [employer] . These bracelets have an acupressure [...] have you talk to one of our [facility] Counselors. Some women are at a higher [...] or present disease s, in particular- rubella (argentine measles), varicella (chicken pox), syphilis, HIV, and [...] Elizabet lives with her Michael ricks in [place]. She works at [place] [employer] and at the [place]. She is currently on day [...] daughter, Yecenia. 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 Vitals: Weight: 109.3 kg (241 lb) [...] too groggy. She has to drive to [place] for work everyday. Will ask the provider [...] WIC. Will check into this herself. Accepts Casual Steps Families forms but will take home to [...] PROTEIN/CRE | 0.06 | <0.16 mg/mg | [facility] | | | ATININE | | [...] | [place] | And | [place] [address] | [phone] | | MEDICAL CENTER | Streets | [...] | | A MEDICAL | | | [place] | | | CENTER | | + [...] the MDRD equation recommended by the | [facility] | | National Kidney Disease Education Program. Estimated GFR | [facility] | | Interpretive Information: <60 mL/min/1.73 [...] + + | [place] | [address] | [place] [address] | [phone] | | MEDICAL CENTER | Streets | | | + + + + + URIC ACID, PLASMA (01/05/2018 4:42 PM PDT) + +-------+ + + + | Component | Value | Ref Range | Performed | Pathologist | | | | | At | Signature | + +-------+ + + + | URIC ACID, | 3.5 | 2.4 - 5.7 mg/dL | [facility] | | | PLASMA | | [...] | [address] | [place] [address] | [phone] | | MEDICAL CENTER | Streets | | | + + + + + UREA NITROGEN, PLASMA (01/05/2018 4:42 PM PDT) + +-------+ + + + | Component | Value | Ref Range | Performed | Pathologist | | | | | At | Signature | + +-------+ + + + | BUN, PLASMA | 7 | 6 - 26 mg/dL | [facility] | | | (LAB) | | [...] | + + + + + | [facility] | [address] | [place] [address] | [phone] | | MEDICAL CENTER | Streets | | | + + + + + HEMOGLOBIN A1C, BLOOD (01/05/2018 4:42 PM PDT) + +-------+ + + + | Component | Value | Ref Range | Performed | Pathologist | | | | | At | Signature | + +-------+ + + + | HEMOGLOBIN | 5.7 | % | [facility] | | | A1C | | [...] Diabetic Ranges per DCCT & ADA: | [facility] | | Normal Range: <6% [facility] | | Good Control: <7% | | | Additional action suggested: >8% Non-Diabetic | | | Ranges: 4-6% Rv Mechanic's Glycohemoglobin | | | Diabetic Ranges: Normal Range: | | | 4.0-6.0% Good Control: | | | 6.0-8.0% Poor Control: | | | >8.0% | | + + + + + + + + | Performing | Address | City/State/Zipcode | Phone Number | | Organization | | | | + + + + + | [place] | And | [place] [address] | [phone] | | [facility] | Streets | | | + [...] | - [place] | | | | Assay([employer] | | | | | | [...] + + | [facility] | [address] [facility] | [place] [address] | | | - [place] | [address] | | | + + [...] | [place] | And | [place] [address] | [phone] | | MEDICAL CENTER | Streets | [...] | + + + + + | [facility] | [address] | [place] [address] | [phone] | | MEDICAL [place] | Streets | | | + + [...] + + + | Test performed at [facility] | [facility] | | [address] | DIAGNOSTICS - | | [place] [address] | [place] | | Operations Intelligence Superintendent LISANDRA HUA MD | | + + + + + + + + | Performing | Address | City/State/Zipcode | Phone Number | | Organization | | | | + + + + + | [facility] | [address] | [place] [address] | | | - [place] | [address] | | | + + + + + TSH W/REFLEX TO FREE T4(IF ABNORMAL) (01/05/2018 4:42 PM PDT) + +-------+ + + + | Component | Value | Ref Range | Performed | Pathologist | | | | | At | Signature | + +-------+ + + + | TSH | 2.21 | 0.34 - 5.60 | [facility] | | | | | uIU/mL | [...] | + + + + + | [facility] | And | [place] [address] | [phone] | | MEDICAL CENTER | Streets | | | + + + + + RUBELLA IGG AB, SERUM (01/05/2018 4:42 PM PDT) + +-------+ + + + | Component | Value | Ref Range | Performed | Pathologist | | | | | At | Signature | + +-------+ + + + | RUBELLA IGG | 42 | IU/mL | [facility] | | | AB | | | A MEDICAL | | | | | | CENTER | | + +-------+ + + + + + | Specimen | + + | Blood - Blood | | (substance) | + + + + + | Narrative | Performed At | + + + | Interpretation: <10 IU/mL Non-Reactive/Non-Immune | [facility] | | >=10-<15IU/mL EQUIVOCAL >=15 IU/mL Reactive Immune | [facility] | | The following results were obtained [...] + + | [facility] | And | [place] [address] | [phone] | | MEDICAL CENTER | Streets | | | + + + + + RPR SERUM (01/05/2018 4:42 PM PDT) + + + + + + | Component | Value | Ref Range | Performed | Pathologist | | | | | At | Signature | + + + + + + | RPR | Nonreactive | Nonreactive | [facility] | | | | | [...] | [place] | And | [place] [address] | [phone] | | MEDICAL CENTER | Streets | [...] AG | HIV-1/HIV-2 antibodies | | - [place] | | | SCREEN | were notdetected. [...] refer | | | | | | [email or web address] | | | | | | [email or web address] | | | | | | 06(This [...] + + + | [facility] | [address] | [place] [address] | | | - [place] | [address] | | | + + [...] Elecsys HBsAg immunoassay may not be | [facility] | | used interchangeably with the values obtained with different | [facility] | | manufacturers' assay methods. | | + + + + + + + + | Performing | Address | City/State/Zipcode | Phone Number | | Organization | | | | + + + + + | [facility] | And | [place] [address] | [phone] | | [facility] | Streets | | | + [...]
--- OUTSIDE RECORDS SUMMARY | ~2019-05-12 | XMS | Encounter Summary ---
Demographics + + + | Address | [address] | | | [place] [address] | + + + | Home Phone [...] | | [place] | | [place] [address] | | + + + + + | Gracie Turcios | ECON | [place] | | + + + + + Care Team Providers + +------+ + | Care Ton Container Filler Name | Role | Phone | + [...] + + | 05/11/ | Refill | [place] | Kapil Rutherford, | Refill Request | | 2017 | | [facility] [address] | CNM [address] | | | | | [address] | [place] [address] | | | | | [address] [place], [place] | [place] | | | | | [address] | [address] | | | | | [phone] | [phone] | | | | | | | [...]
[2019-05-12] MEDS ORDERED: VITAMIN D250000 UNIT PO (20:47)
[2019-05-12] MEDS ORDERED: CRUTCH1 EACH (21:31)
== END 2019-05-12 21:55 | disposition home or self-care (01) ==
LOC: ED 20:39
DX: S93.402A Sprain of unspecified ligament of left ankle, initial encounter (principal); W10.9XXA Fall (on) (from) unspecified stairs and steps, initial encounter; Z88.0 Allergy status to penicillin; Z79.899 Other long term (current) drug therapy
CPT/HCPCS: 73610; 73630; 99283-25